=== PATIENT | female | born 1945 | race Caucasian/White ===

== ENCOUNTER → 2018-08-07 | Outpatient (CLI) | payer MEDICARE, OTHER, SELFPAY ==
--- NOTE | 2018-08-07 09:50 | VDLE_ITS ---
Reason For Study: LLE swelling Procedure LEFT Exam performed in department. GSV is normal. The study was technically difficult. CFV is compressible, spontaneous, phasic, Due to body habitus. competent, and demonstrates normal A preliminary report was called and/or faxed augmentation. to Dr. Mireles @ 10:20 am. FV is compressible, spontaneous, phasic, competent and demonstrates normal augmentation. POP V is compressible, spontaneous, phasic, competent and demonstrates normal augmentation. T/P Trunk is compressible. PTV is compressible. LT PerV is compressible. Interpretation Summary Deep veins of the left lower extremity are patent and compressible segmentally. There is no evidence of left lower extremity deep vein thrombosis. Valvular competence appears intact within the proximal deep venous system on the left . The left greater saphenous vein appears patent and compressible segmentally. Ordering Physician: Sandrine Mireles Referring Physician: Sandrine Mireles Performed By: Meghan Rodrigues, RDMATILDE, RVT
== END | disposition home or self-care (01) ==
LOC: CVS 09:46
PROVIDERS: Family Provider Internal Medicine; PCP Internal Medicine; Referring Provider Internal Medicine; Visit Provider Internal Medicine
DX: M79.89 Other specified soft tissue disorders (principal)
CPT/HCPCS: 93971

== ENCOUNTER 2020-02-25 16:35 | Emergency (ER) | payer MEDICARE, OTHER, SELFPAY ==
[2020-02-25] VITALS (8 sets, daily range): BP systolic 135–167; BP diastolic 65–89; PULSE 80–97; RESP 16–24; TEMP 36.2; O2SAT 76–99; BMI 48.7
--- NOTE | 2020-02-25 16:56 | EKG12_ITS ---
Test Reason : LOW O2 Blood Pressure : / mmHG Vent. Rate : 090 BPM Atrial Rate : 090 BPM P-R Int : 216 ms QRS Dur : 086 ms QT Int : 354 ms P-R-T Axes : 058 -09 034 degrees QTc Int : 433 ms Sinus rhythm with 1st degree A-V block Inferior infarct , age undetermined Abnormal ECG Confirmed by INDER GARRETT, KENNEDY ([id number]), technical writer and editor FELICIA FERRO ([id number]) on 02/28/2020 9:42:50 AM Referred By: ERIN Confirmed By:KENNEDY LOVING MD
[2020-02-25 17:08] LABS: Absolute Lymphocyte Count 0.65 X10^3/uL (0.83-4.51); Absolute Neutrophil Count 7.5 X10^3/uL (2.0-7.7); Basophil# 0.06 X10^3/uL; Basophil% 0.7 % (0-1); Eosinophil# 0.14 X10^3/uL; Eosinophils% 1.5 % (0-5); Hematocrit 52.5 % (37-47); Hemoglobin 15.4 g/dL (12.0-15.0); Lymphocyte # 0.65 X10^3/ul (4.0); Lymphocyte % 7.1 % (19-41); Mean Corp Hgb Conc 29.3 g/dL (32-36); Mean Corpuscular Hgb 28.9 pg (27.0-32.0); Mean Corpuscular Volume 98.7 fL (81-99); Mean Platelet Vol. 12.1 fl (6.2-12.0); Monocyte# 0.82 X10^3/uL; Monocyte% 8.9 % (0-10); NRBC Flagged by Analyzer 0 % (0-5); Neutrophil # 7.45 X10^3/uL (2.7-7.7); Platelet Count 150 K/mm3 (150-450); RBC Distribution Width CV 14.6 % (11.6-14.6); RBC Distribution Width SD 52.6 fl (35.1-43.9); Red Blood Count 5.32 M/mm3 (4.2-5.4); White Blood Count 9.2 K/mm3 (4.4-11.0)
--- NOTE | 2020-02-25 17:15 | RAD_ITS ---
STUDY: X-RAY CHEST REASON FOR EXAM: Female, 74 years old[address] SENT BY DR. FERNANDEZ FOR LOW O2 SATS. PT REPORTS SOB AND CONGESTION. TECHNIQUE: Single AP portable view of the chest. COMPARISON: 02/08/2016 FINDINGS: Poor inspiration with some bibasilar atelectasis. Small right pleural effusion. Normal size heart. Normal mediastinum and raghav. Normal visualized pulmonary arteries. Normal visualized aortic arch and descending thoracic aorta. Spinal rods. Normal visualized ribs, clavicles, and shoulders. There is no demonstrated abnormality of the visualized soft tissue structures of the upper abdomen. RAD/Chest 1 View (Portable) IMPRESSION: Poor inspiration with some bibasilar atelectasis and a small right pleural effusion. Electronically Signed: Kermit Bejarano MD at 17:36 EST Tel , Service support ,
[2020-02-25 17:26] LABS: ALB/GLOB Ratio 0.9 RATIO (0.9-2.4); AST(SGOT) 12 U/L (15-37); Alanine Aminotransfer ALT/SGPT 26 U/L (13-56); Albumin, Serum 3.4 g/dL (3.2-5.0); Alkaline Phosphatase 87 U/L (45-117); Anion Gap 2 (5-15); BUN 17 mg/dL (7-18); BUN/Creat Ratio 13.1 RATIO (10-20); Chloride 109 mmol/L (98-107); EST Glomerular Filtration Rate 43 mL/min (>60); Est Glom Filt Rate - Afr Amer 52 mL/min (>60); Estimated Creatinine Clearance 37.48 ml/min; Globulin 3.7 g/dL (2.2-4.2); Glucose 92 mg/dL (74-106); Potassium 4.4 mmol/L (3.5-5.1); Protein, Total 7.1 g/dL (6.4-8.2); Sodium Level 145 mmol/L (136-145)
[2020-02-25 17:35] LABS: BNP,B-Type NATRIURETIC PEPTIDE 257.3 pg/mL (0-100)
[2020-02-25 17:38] LABS: Lactic Acid 1.1 mmol/L (0.4-1.9)
--- NOTE | 2020-02-25 18:35 | ED.VISSUMM ---
- ER Visit Summary Date of Service: 02/25/20 Chief Complaint: Shortness of breath History of Present Illness: The patient is a [address] Mireles. She is a poor informant. She reports that she has chronic shortness of breath that has increased over the course of the past week. She states that it is severe with exertion. She denies any fever, chills, or chest pain. Reports he has a cough from sinus drainage is productive of clear sputum. Patient denies sick contacts. She does wear a mask. She is not on home O2. She is not on anticoagulants. Physical Examination: Vitals: 97.2, 167/81, 97, 24, 84% on room air which is hypoxic. General: Well-nourished and well-developed. Head: Normocephalic atraumatic. Neck: Supple, no lymphadenopathy. No JVD. Nontender. Cardiovascular: Regular rate and rhythm. No murmurs. Heart sounds are distant. Respiratory: No respiratory distress. Poor air movement. Lungs are clear to auscultation bilaterally, but breath sounds are distant. Abdominal: Soft, nontender, nondistended, normal bowel sounds. No guarding, rebound, or peritoneal signs. Back: Nontender. Extremities: Nontender, 1+ edema lower extremities bilaterally. Skin: Normal color, no rash. Neurologic: Alert and oriented ?3. Cranial nerves II through XII are intact. Normal strength and sensation. Psych: Normal affect. Test Results: EKG is sinus at 90 with first-degree AV block. Nonspecific ST changes. CBC shows an H&H of 15.4 and 52.5, second neutrophils 81, lymphocytes of 7. Chem-7 shows a chloride of 109, CO2 34, creatinine 1.3. LFTs show an AST of 12. Troponin is negative. BNP is 257.3. D-dimer is 0.8. COVID-19 is negative. Clinical Impression(s) from Imaging Studies Chest X-Ray 02/25/20 17:15 IMPRESSION: Poor inspiration with some bibasilar atelectasis and a small right pleural effusion. Electronically Signed: Kermit Bejarano MD at 17:36 EST Tel , Service support , Chest CTA 02/25/20 18:40 IMPRESSION: Significantly limited by patient size. No gross PE. Underexpansion of the lungs. Small right pleural effusion and atelectasis in the right lower lobe. 3 cm mass of the left thyroid lobe. Electronically Signed: Ezra Wall MD at 19:26 EST , Service support , Emergency Department Course and Treatment: Patient's pulse ox was 84% on room air at rest. On 4 L nasal cannula she is in the mid 90s. Treatment Plan: The patient was discussed with Dr. Valencia who asked that we attempt to get oxygen from the emergency department because there is really nothing that would be do done treatment le in the hospital. Patient was ambulated and her pulse ox was 76% on room air with ambulation. We have spoken with Andrey and the patient will be discharged with home oxygen. Instructed to follow-up with her primary care physician in 3 to 5 days. Return to the emergency department for any worsening symptoms.. Disposition: Discharged in improved condition. Impression: 1. Right pleural effusion. 2. Hypoxia. This note was generated with [employer] dictation software. It may contain incorrect words, spelling, and punctuation that were not noted in review of the chart prior to signing ED Disposition - Plan for ED Patient: Instructions: ED Pleural Effusion Referrals: Sandrine Mireles MD [Primary Care Provider] - As soon as possible
--- NOTE | 2020-02-25 18:40 | CT_ITS ---
STUDY: CTA CHEST REASON FOR EXAM: Female, 74 years old. Hypoxia, congestion, shortness of breath RADIATION DOSAGE (If Supplied By Facility): CTDIvol = ( 16.7 ) mGy, DLP = ( 731.45 ) mGycm TECHNIQUE: The examination was performed with the intravenous administration of Isovue 370 100ml. Post-processing of the angiographic images was performed, with multiplanar reformation and 3D reconstruction. Individualized dose optimization techniques were used for this CT. COMPARISON: None. FINDINGS: Exam limited by patient size which decreases resolution and causes artifact. There is also streak artifact from patient''s arms and ROSS rods. 3 cm nodule in the left thyroid lobe, ultrasound recommended. Normal enhancement of the main pulmonary artery and right and left pulmonary arteries. Normal enhancement of the bilateral peripheral pulmonary arteries. There is no demonstrated pulmonary embolism. Normal thoracic aorta and visualized great vessels. There is no demonstrated aortic dissection. Mild/moderate cardiomegaly. Normal mediastinum. Normal hilar regions. Normal visualized trachea and bronchi. The lungs are under expanded. Small right pleural effusion. Atelectasis in the right lower lobe. No definite infiltrates. Stable degenerative and postoperative changes of the thoracic spine. No gross acute amount is seen in the upper abdomen. CT/CTA Chest W/WO Contrast IMPRESSION: Significantly limited by patient size. No gross PE. Underexpansion of the lungs. Small right pleural effusion and atelectasis in the right lower lobe. 3 cm mass of the left thyroid lobe. Electronically Signed: Ezra Wall MD at 19:26 EST , Service support ,
--- NOTE | 2020-02-25 21:48 | ED.RN ---
AMBULATED WITH WALKER AND PULSE OX, OXYGEN LEVEL DROPPED TO 87% ON 3L. PT RECOVERED TO 96% ON 3L AT REST.
--- NOTE | 2020-02-25 22:21 | CM.ED ---
Addendum entered by Yamilet Pepe 02/25/20 23:10: Call to [employer] armor reconnaissance vehicle driverKapil to update patient to be leaving shortly and provided with address and contact number for daughter. Wrapper Cashier to patient patient at the home to set up O2. Original Note: SOCIAL WORK Informant: Dr. Crooks Reason for Consult: Discharge Planning Updated by Dr. Crooks, case was discussed with Dr. Valencia and she is requesting home O2 be set up in ED for home going. Patient with COVID-[address] Valencia has contacted [facility] to discuss home O2 without positive COVID-19 test result. This worker spoke with on-call workers through [employer], Michael and Kapil to see about possibility of obtaining home O2 set up this evening. Both workers state if any issues will follow up with patient and PCP on Friday. Wrapper Cashier requesting this worker provide patient with portable tank and will meet patient at home upon discharge. Nursing has completed O2 testing and Dr. Crooks completed [employer]. This worker spoke with patient's daughterNeema whom patient resides with as patient is a poor historian. Neema in agreement with home O2 set up through [employer]. All clinical information faxed to [employer] at this time. Portable tank and tubing provided to nursing and will review with patient. This worker to call armor reconnaissance vehicle driverKapil upon discharge. Plan: Home with home O2 through [employer]. KEVON Lara, BUCK SWAMPER
== END 2020-02-25 23:55 | disposition home or self-care (01) ==
LOC: ED 17:55
PROVIDERS: Emergency Provider Emergency Medicine; PCP Internal Medicine
DX: J90 Pleural effusion, not elsewhere classified (principal); R09.02 Hypoxemia; I10 Essential (primary) hypertension; E78.00 Pure hypercholesterolemia, unspecified; Z79.899 Other long term (current) drug therapy
CPT/HCPCS: 36415; 71045; 71275; 80053; 83605; 83880; 84484; 85025; 85379; 87040; 87426; 93005; 99284; Q9967; A4216

== ENCOUNTER → 2020-03-02 10:35 | Outpatient (CLI) | payer MEDICARE, OTHER, SELFPAY ==
[2020-02-25 16:37] VITALS: BMI 48.7
--- NOTE | 2020-03-02 10:41 | ECHOCS_ITS ---
Version 2 Reason For Study: aortic stenosis Procedure This was a 2D Doppler, Color Flow transthoracic echocardiogram. The study was technically difficult. Due to body habitus. Contrast injection was performed. Exam performed in department. Left Ventricle Normal LV size. The estimated ejection fraction is 65 %. Diastolic function is indeterminate. No regional wall motion abnormalities noted. Right Ventricle Normal RV size. Normal systolic function. Atria Normal left atrium. Normal right atrium. No doppler evidence for ASD. Mitral Valve There is no mitral valve stenosis. No mitral valve insufficiency. Tricuspid Valve There is no tricuspid stenosis. Unable to estimate RV systolic pressure due to inadequate jet, pulmonary artery pressure probably normal. Unable to estimate RV systolic pressure due to insufficient tricuspid regurgitant envelope. Aortic Valve Mild diffuse aortic valve thickening. The aortic valve is not well visualized. possible mild by doppler criteria. No aortic valve insufficiency. Pulmonic Valve There is no pulmonic valvular stenosis. No pulmonic valve insufficiency. Great Vessels Normal aortic root. Pericardium/Pleural Trivial pericardial effusion. Medication 22 gauge I.V. with prn adaptor inserted into right arm. Diluted definity 4.0ml given slow IV push to enhance endocardial definition. MMode/2D Measurements & Calculations LVIDd: 4.2 cm IVSd: 1.3 cm LVOT diam: 2.0 cm LVIDs: 3.0 cm LVPWd: 1.3 cm RVDd: 4.0 cm FS: 28.7 % LVOT area: 3.3 cm2 Ao root diam: 3.1 cm LAV(MOD-bp): 47.6 ml LA A4 area: 17.4 cm2 LAV(MOD-bp) Indexed: 20.6 ml/m2 LAV(MOD-sp2): 49.5 ml LAV(MOD-sp4): 44.0 ml LA dimension(2D): 4.7 cm RA A4 area: 15.2 cm2 Doppler Measurements & Calculations MV E max matty: 113.2 cm/sec Lat Peak E' Matty: 6.8 cm/sec Med Peak E' Matty: 6.3 cm/sec MV A max matty: 142.5 cm/sec E/E' lat: 16.5 E/E' med: 17.9 MV E/A: 0.79 Ao V2 max: 241.9 cm/sec LV V1 max: 133.0 cm/sec SV(LVOT): 86.9 ml Ao max P.4 mmHg LV V1 max P.1 mmHg Ao V2 mean: 163.1 cm/sec LV V1 mean P.2 mmHg Ao mean P.9 mmHg LV V1 mean: 99.0 cm/sec Ao V2 VTI: 41.8 cm LV V1 VTI: 26.4 cm BENNY(I,D): 2.1 cm2 BENNY(V,D): 1.8 cm2 PA V2 max: 107.7 cm/sec Interpretation Summary The study was technically difficult. Contrast injection was performed. The estimated ejection fraction is 65 %. Diastolic function is indeterminate. Mild diffuse aortic valve thickening. possible mild by doppler criteria The study was technically difficult. Contrast injection was performed. Ordering Physician: Sandrine Mireles Referring Physician: Sandrine Mireles Performed By: Meghan Rodrigues, AYSE, RVT
--- NOTE | 2020-03-02 11:28 | US_ITS ---
STUDY: THYROID ULTRASOUND REASON FOR EXAM: Female, 74 years old. NODULE SEEN ON CT TECHNIQUE: Ultrasound evaluation of the thyroid was performed with real-time and static chauhan-scale imaging. COMPARISON: CT scan 02/25/2020. FINDINGS: RIGHT LOBE: The right lobe of the thyroid gland measures 4.4 x 2.1 x 1.8 cm. There is a heterogeneous echotexture. 2 nodules are seen. One is complex, solid and cystic and measures 1.7 cm in greatest dimension. The other is probably a tiny colloid cyst measuring 5 mm. LEFT LOBE: The left lobe of the thyroid gland measures 4.2 x 2.6 x 2.8 cm. There is a heterogeneous echotexture. There is a heterogeneous mass in the lower pole measuring 3.1 cm in greatest dimension. ISTHMUS: The isthmus measures 4 mm . The regional lymph nodes are normal. US/Thyroid IMPRESSION: Heterogeneous thyroid gland. 3.1 cm mass in the left thyroid lobe. Consider ultrasound-guided biopsy. Electronically Signed: Ezra Wall MD at 23:21 EST , Service support ,
== END ==
PROVIDERS: PCP Internal Medicine; Referring Provider Internal Medicine; Visit Provider Internal Medicine
DX: E07.9 Disorder of thyroid, unspecified (principal); I35.0 Nonrheumatic aortic (valve) stenosis
CPT/HCPCS: 76536; 93306; Q9957; A4216; C8929

== ENCOUNTER → 2020-03-29 | Outpatient (CLI) | payer MEDICARE, OTHER, SELFPAY ==
--- NOTE | 2020-03-29 14:00 | ASPS_PTH ---
PATIENT: CLAIRE PIRES LOC: [facility] U#:[id number] AGE/SX: 74/F ROOM: RE03/29/[address]: Dr. Hari Plaza MD : 1945 BED: DIS: 03/29/2020 SPEC #: [id number] RECD: 03/29/20 15:35 STATUS: MYKEL SHAYE #: [id number] RHIANNON: 03/29/20 14:[address]: Hari Plaza DEPT: CYTOLOGY RECD BY: Bessy Osullivan ENTERED: 03/30/20 07:56 SP TYPE: ASPIRATION OTHR DR: Dr. Sandrine Mireles MD Tissues: Thyroid gland, NOS Procedures: Special Stain Group II Cytology Other HEADER OPERATION: Left thyroid fine needle aspiration PRE-OP DIAGNOSIS: Left thyroid nodule TISSUE SUBMITTED: Left thyroid slides x8 DIAGNOSIS CYTOLOGY Left thyroid nodule, FNA (smears): Consistent with benign follicular nodule. Adequate for evaluation. See comment. SJ:juliette 03/30/2020 COMMENT Correlation with clinical, radiologic findings and appropriate follow up are necessary. CYTOLOGY STUDY Slides are reviewed. CYTOLOGY GROSS Received are eight smears labeled with the patient's name and designated per the requisition as left thyroid. Submitted for staining. / juliette 03/29/20 TC:5 CPT: 10862
== END | disposition home or self-care (01) ==
LOC: LABSPEC 15:45
PROVIDERS: PCP Internal Medicine; Referring Provider Surgery; Visit Provider Surgery
DX: E04.1 Nontoxic single thyroid nodule (principal)
CPT/HCPCS: 88161; 88313

== ENCOUNTER → 2020-10-30 11:03 | Outpatient (CLI) | payer MEDICARE, OTHER, SELFPAY ==
[2020-10-30 12:06] LABS: Base Excess 9 mmol/L (-2 to +2); Bicarbonate 34.1 mmol/L (22-26); Blood Gas Specimen Type ART; O2 Delivery Device Room Air; PO2 72 mmHG (75-100); SITE R Brach; SO2 93 % (95-99); Total Carbon Dioxide 36 mmol/L; pCO2 59.4 mmHg (35-45); pH 7.37 (7.35-7.45)
== END ==
PROVIDERS: PCP Internal Medicine; Referring Provider Internal Medicine Pulmonary Disease; Visit Provider Internal Medicine Pulmonary Disease
DX: R09.02 Hypoxemia (principal)
CPT/HCPCS: 36600; 82803

== ENCOUNTER → 2020-11-23 08:49 | Outpatient (CLI) | payer MEDICARE, OTHER, SELFPAY ==
--- NOTE | 2020-11-23 08:54 | RAD_ITS ---
PROCEDURE: Sniff test. DATE OF EXAMINATION: 11/23/2020 INDICATION: Female, 74 years old presenting with dyspnea. PHYSICIAN: Tera Coelho MD FLUOROSCOPY TIME (if supplied): (0:14) minutes/seconds TECHNIQUE: Fluoroscopic evaluation of the diaphragm was performed, unremarkable movement of bilateral hemidiaphragms was normal respiration, unremarkable movement of bilateral hemidiaphragms with deep inspiration and expiration. Unremarkable synchronous motion of bilateral hemidiaphragms visualized during repeated episodes of sniffing. No evidence of paradoxical motion of the hemidiaphragms. RAD/Chest Sniff Test Fluoro Only IMPRESSION: Unremarkable sniff test. Electronically Signed: Christophe Coelho MD at 10:26 EDT Tel , Service support ,
== END ==
PROVIDERS: PCP Internal Medicine; Referring Provider Internal Medicine Pulmonary Disease; Visit Provider Internal Medicine Pulmonary Disease
DX: R06.00 Dyspnea, unspecified (principal)
CPT/HCPCS: 76000

== ENCOUNTER 2021-01-16 14:35 | Outpatient (CLI) | payer MEDICARE, OTHER, SELFPAY ==
[2021-01-16 15:08] VITALS: BP 138/62; PULSE 79; RESP 16; TEMP 36.4; O2SAT 100; BMI 47.0
[2021-01-16] MEDS: 0.9% Saline Lock 10 ML Syringe IV (15:08)
[2021-01-16 15:40] VITALS: BP 144/67; PULSE 80; RESP 16; TEMP 37.1; O2SAT 100
[2021-01-16 16:40] VITALS: BP 149/58; PULSE 83; RESP 16; TEMP 36.9; O2SAT 98
== END 2021-01-16 16:50 | disposition home or self-care (01) ==
LOC: MS3OUT 14:37 → MS3 15:07
PROVIDERS: PCP Internal Medicine; Referring Provider Nurse Practitioner Adult Health; Visit Provider Nurse Practitioner Adult Health
DX: Z23 Encounter for immunization (principal); U07.1 COVID-19
CPT/HCPCS: J7050; M0245; Q0245; A4216

== ENCOUNTER 2021-03-20 12:52 | Outpatient (CLI) | payer MEDICARE, OTHER, SELFPAY ==
--- NOTE | 2021-03-20 13:01 | US_ITS ---
STUDY: THYROID ULTRASOUND REASON FOR EXAM: Female, 75 years old. Multiple thyroid nodules TECHNIQUE: Ultrasound evaluation of the thyroid was performed with real-time and static chauhan-scale imaging. COMPARISON: Comparison is made with prior study dated 08/30/2020. FINDINGS: RIGHT LOBE: The right lobe of the thyroid gland measures 4.3 cm x 2.2 cm x 2.2 cm. There is a heterogeneous echotexture. A mixed solid and cystic nodule in the lower pole is visualized. This measures 1.5 cm x 1.4 NORBERTO by 1.5 cm. This is essentially unchanged. There is a 8mm by 6 mm x 5 mm solid hypoechoic nodule in the midpole of the lobe as well as a 4 mm x 5 mm x 4 mm hypoechoic solid nodule in the upper pole. LEFT LOBE: The left lobe of the thyroid gland measures 4.5 cm x 2.9 cm x 2.9 cm. There is a heterogeneous echotexture. There is a 3.5 cm x 2.5 cm x 2.6 cm heterogeneous solid nodule in the midpole. This has increased in size as compared to prior study. Biopsy recommended. ISTHMUS: The isthmus measures 5 mm. The regional lymph nodes are normal. US/Thyroid IMPRESSION: 3.5 cm x 2.5 cm x 2.6 heterogeneous solid nodule in the mid pole of the left lobe. Biopsy recommended. The remainder of the examination is unchanged. Electronically Signed: Sunil Corrigan MD at 15:38 EST ,
== END 2021-03-20 23:59 | disposition home or self-care (01) ==
PROVIDERS: PCP Internal Medicine; Referring Provider Surgery; Visit Provider Surgery
DX: E04.2 Nontoxic multinodular goiter (principal)
CPT/HCPCS: 76536

== ENCOUNTER → 2021-06-19 | Outpatient (CLI) | payer MEDICARE, OTHER, SELFPAY | END | disposition home or self-care (01) | LOC: SL 20:38 | PROVIDERS: PCP Internal Medicine; Visit Provider Internal Medicine Pulmonary Disease | DX: G47.10 Hypersomnia, unspecified (principal) | CPT/HCPCS: 95810 ==

== ENCOUNTER → 2021-10-02 | Outpatient (CLI) | payer MEDICARE, OTHER, SELFPAY | END | disposition home or self-care (01) | LOC: SL 20:37 | PROVIDERS: PCP Internal Medicine; Referring Provider Internal Medicine Pulmonary Disease; Visit Provider Internal Medicine Pulmonary Disease | DX: G47.33 Obstructive sleep apnea (adult) (pediatric) (principal) | CPT/HCPCS: 95811 ==

== ENCOUNTER → 2022-06-25 | Outpatient (CLI) | payer MEDICARE, OTHER, SELFPAY ==
[2022-06-25 16:10] LABS: Anion Gap 3 (5-15); BUN 24 mg/dL (7-18); BUN/Creat Ratio 21.8 RATIO (10-20); Calcium,Total 9.8 mg/dL (8.5-10.1); Chloride 110 mmol/L (98-107); EST Glomerular Filtration Rate 51 mL/min (>60); Est Glom Filt Rate - Afr Amer 62 mL/min (>60); Glucose 101 mg/dL (74-106); Potassium 4.8 mmol/L (3.5-5.1); Sodium Level 143 mmol/L (136-145)
== END | disposition home or self-care (01) ==
LOC: LAB 15:11
PROVIDERS: PCP Internal Medicine; Referring Provider Internal Medicine; Visit Provider Internal Medicine
DX: N28.9 Disorder of kidney and ureter, unspecified (principal)
CPT/HCPCS: 36415; 80048

== ENCOUNTER → 2022-07-22 | Outpatient (CLI) | payer MEDICARE, OTHER, SELFPAY ==
--- NOTE | 2022-07-22 13:44 | VDLE_ITS ---
Reason For Study: Left leg swelling Procedure LEFT This is a venous duplex using B-mode, color GSV is normal. flow and spectral Doppler. CFV is compressible, spontaneous, phasic, Exam performed in department. competent, and demonstrates normal The study was technically difficult. augmentation. A preliminary report was called and/or faxed FV is compressible, spontaneous, phasic, to Dr. Soto. competent and demonstrates normal augmentation. POP V is compressible, spontaneous, phasic, competent and demonstrates normal augmentation. T/P Trunk is compressible. PTV is compressible. LT PerV is compressible. VL/Venous Duplex US, Unilateral Interpretation Summary There is no evidence of left lower extremity deep vein thrombosis. Left great s aphenous vein appears patent and compressible segmentally. Soft tissue edema noted left lower extremi ty. The examination was noted to be technically difficult Ordering Physician: Cristy Soto Referring Physician: Sandrine Mireles M.D. Performed By: Lo Meng RVT
== END | disposition home or self-care (01) ==
LOC: CVS 13:43
PROVIDERS: PCP Internal Medicine; Referring Provider Internal Medicine; Visit Provider Internal Medicine
DX: M79.89 Other specified soft tissue disorders (principal)
CPT/HCPCS: 93971

== ENCOUNTER → 2022-08-29 | Outpatient (CLI) | payer MEDICARE, OTHER, SELFPAY ==
[2022-08-29 11:12] LABS: Absolute Lymphocyte Count 1.03 X10^3/uL (0.83-4.51); Basophil# 0.06 X10^3/uL; Basophil% 0.9 % (0-1); Eosinophil# 0.34 X10^3/uL; Eosinophils% 5.4 % (0-5); Hematocrit 39.8 % (37-47); Hemoglobin 12.1 g/dL (12.0-15.0); Lymphocyte # 1.03 X10^3/ul (0.83-4.51); Lymphocyte % 16.3 % (19-41); Mean Corp Hgb Conc 30.4 g/dL (32-36); Mean Corpuscular Hgb 29.3 pg (27.0-32.0); Mean Corpuscular Volume 96.4 fL (81-99); Mean Platelet Vol. 11.6 fl (6.2-12.0); Monocyte# 0.85 X10^3/uL; Monocyte% 13.4 % (0-10); NRBC Flagged by Analyzer 0 % (0-5); Neutrophil % 63.4 % (47-70); Platelet Count 163 K/mm3 (150-450); RBC Distribution Width CV 13.1 % (11.6-14.6); RBC Distribution Width SD 46.5 fl (35.1-43.9); Red Blood Count 4.13 M/mm3 (4.2-5.4); White Blood Count 6.3 K/mm3 (4.4-11.0)
[2022-08-29 11:39] LABS: ALB/GLOB Ratio 0.8 RATIO (0.9-2.4); AST(SGOT) 11 U/L (15-37); Alanine Aminotransfer ALT/SGPT 17 U/L (13-56); Alkaline Phosphatase 79 U/L (45-117); Anion Gap 6 (5-15); BUN 25 mg/dL (7-18); BUN/Creat Ratio 18.5 RATIO (10-20); Calcium,Total 9.6 mg/dL (8.5-10.1); Chloride 110 mmol/L (98-107); Creatinine, Serum 1.35 mg/dL (0.55-1.02); EST Glomerular Filtration Rate 41 mL/min (>60); Est Glom Filt Rate - Afr Amer 49 mL/min (>60); Globulin 3.8 g/dL (2.2-4.2); Glucose 85 mg/dL (74-106); Potassium 4.8 mmol/L (3.5-5.1); Protein, Total 6.8 g/dL (6.4-8.2); Sodium Level 144 mmol/L (136-145)
== END | disposition home or self-care (01) ==
LOC: LAB 10:38
PROVIDERS: PCP Internal Medicine; Referring Provider Internal Medicine; Visit Provider Internal Medicine
DX: E11.9 Type 2 diabetes mellitus without complications (principal); M79.89 Other specified soft tissue disorders
CPT/HCPCS: 36415; 80053; 85025

== ENCOUNTER → 2022-09-10 | Outpatient (CLI) | payer MEDICARE, OTHER, SELFPAY ==
--- NOTE | 2022-09-10 14:25 | US_ITS ---
INDICATION: thyroid mass EXAMINATION: Ultrasound US Thyroid (eg thyroid, parathyroid, parotid) TECHNIQUE: Henry scale and color doppler imaging was performed of the thyroid gland. COMPARISON: Prior comparison exam dated March 20, 2021. FINDINGS: Difficult exam due to patient size and positioning. RIGHT THYROID LOBE: 4.1 x 1.9 x 2.3 cm. Homogeneous echotexture with normal vascularity. [ Right lower lobe 1.1 x 1.1 x 1.3 cm solid, heterogeneously hypoechoic nodule, wider than tall with ill-defined margins and no echogenic foci; Ti RADS category 4 moderately suspicious nodule. Given size greater than 1 cm, follow-up imaging is recommended in one year. LEFT THYROID LOBE: 5.4 x 3.2 x 3.5 cm. Homogeneous echotexture with normal vascularity. [ Left thyroid lobe is enlarged by a 3.1 x 2.2 x 2.0 cm, solid, isoechoic, color than wide nodule with smooth margins and no echogenic foci; moderately suspicious nodule. Given size greater than 1.5 cm, FNA is recommended. ISTHMUS: 4 mm. No thyroid nodules are present. US/Thyroid IMPRESSION: FNA recommended for left thyroid lobe nodule based on [employer] Ti RADS guidelines; moderately suspicious nodule greater than 1.5 cm. Electronically Signed: Martinez Crane DO at 22:55 EDT ,
== END | disposition home or self-care (01) ==
LOC: US 14:24
PROVIDERS: PCP Internal Medicine; Referring Provider Internal Medicine; Visit Provider Internal Medicine
DX: R22.1 Localized swelling, mass and lump, neck (principal)
CPT/HCPCS: 76536

== ENCOUNTER → 2022-11-20 | Outpatient (CLI) | payer MEDICARE, OTHER, SELFPAY ==
[2022-11-20 14:58] LABS: Absolute Lymphocyte Count 0.99 X10^3/uL (0.83-4.51); Absolute Neutrophil Count 3.8 X10^3/uL (2.0-7.7); Basophil# 0.05 X10^3/uL; Basophil% 0.8 % (0-1); Eosinophil# 0.29 X10^3/uL; Eosinophils% 4.9 % (0-5); Hemoglobin 12.8 g/dL (12.0-15.0); Lymphocyte # 0.99 X10^3/ul (0.83-4.51); Lymphocyte % 16.7 % (19-41); Mean Corpuscular Hgb 30.3 pg (27.0-32.0); Mean Corpuscular Volume 94.8 fL (81-99); Mean Platelet Vol. 11.3 fl (6.2-12.0); Monocyte# 0.72 X10^3/uL; Monocyte% 12.2 % (0-10); NRBC Flagged by Analyzer 0 % (0-5); Neutrophil # 3.84 X10^3/uL (2.7-7.7); Neutrophil % 64.9 % (47-70); Platelet Count 161 K/mm3 (150-450); RBC Distribution Width CV 13.2 % (11.6-14.6); RBC Distribution Width SD 45.6 fl (35.1-43.9); Red Blood Count 4.22 M/mm3 (4.2-5.4); White Blood Count 5.9 K/mm3 (4.4-11.0)
[2022-11-20 15:10] LABS: Prothrombin Time (Protime)PT. 13.3 SECONDS (11.7-14.9)
[2022-11-20 15:11] LABS: Partial Thromboplast Time 32.6 Seconds (24.1-36.2)
[2022-11-20 15:43] LABS: Vitamin D,25 Hydroxy 72.1 ng/mL
[2022-11-20 15:58] LABS: ALB/GLOB Ratio 0.9 RATIO (0.9-2.4); AST(SGOT) 10 U/L (15-37); Alanine Aminotransfer ALT/SGPT 22 U/L (13-56); Albumin, Serum 3.2 g/dL (3.2-5.0); Alkaline Phosphatase 70 U/L (45-117); Anion Gap 2 (5-15); BUN 27 mg/dL (7-18); BUN/Creat Ratio 19.1 RATIO (10-20); Calcium,Total 9.6 mg/dL (8.5-10.1); Chloride 111 mmol/L (98-107); Creatinine, Serum 1.41 mg/dL (0.55-1.02); EST Glomerular Filtration Rate 39 mL/min (>60); Est Glom Filt Rate - Afr Amer 47 mL/min (>60); Globulin 3.6 g/dL (2.2-4.2); Glucose 89 mg/dL (74-106); Potassium 4.3 mmol/L (3.5-5.1); Protein, Total 6.8 g/dL (6.4-8.2); Sodium Level 143 mmol/L (136-145); Thyroid Stim Hormone (TSH) 3.88 uIU/mL (0.358-3.74)
[2022-11-20 21:32] LABS: Hemoglobin A1c 5.7 % (3.8-5.6)
[2022-11-22 08:40] LABS: CRP 4.36 mg/L (0.0-3.0)
== END | disposition home or self-care (01) ==
PROVIDERS: PCP Internal Medicine; Referring Provider Internal Medicine; Visit Provider Internal Medicine
DX: E55.9 Vitamin D deficiency, unspecified (principal); E11.9 Type 2 diabetes mellitus without complications; I10 Essential (primary) hypertension; E07.9 Disorder of thyroid, unspecified; R58 Hemorrhage, not elsewhere classified; M79.89 Other specified soft tissue disorders
CPT/HCPCS: 36415; 80053; 82306; 83036; 84443; 85025; 85610; 85730; 86140

== ENCOUNTER 2023-02-17 18:09 | Inpatient (IN) | payer MEDICARE, OTHER, SELFPAY ==
[2023-02-17] VITALS (13 sets, daily range): BP systolic 73–170; BP diastolic 41–134; PULSE 62–82; RESP 15–28; TEMP 36.4–36.8; O2SAT 93–100; BMI 56.4; BMI 51.5
--- NOTE | 2023-02-17 18:31 | EX.ED.DYSGE1 ---
HPI History of Present Illness Chief Complaint: Weakness Informant: patient and family Narrative Narrative: Here with daughter increasing weakness today. Patient mostly uses wheelchair however can weight-bear ambulate with a walker at home. 2 days ago noted patient be more fatigued and talking her sleep, per daughter these are signs of UTI. She also reports some burning with urination. Yesterday was active more than normal getting up and out of the wheelchair. She has urine frequency due to being on Lasix and has not increased. No fevers. Today she is unable to get out of her chair herself daughter had trouble pushing her in the wheelchair therefore EMS was contacted. She deals with chronic edema in her abdomen and legs. She denies any cough. She is mentally intact and at baseline. Blood pressure noted to be low on arrival denies lightheaded symptoms typical blood pressures systolic 110s per daughter. She states she does take blood pressure medications denies taking extra medications. Prior similar symptoms: Yes PFSH PFSH Medical History Anemia Bilateral pulmonary embolism (07/2014) Chronic obstructive pulmonary disease with hypoxia Depression Essential hypertension Morbid obesity Multiple thyroid nodules Osteomyelitis of cervical spine Postoperative atrial fibrillation (06/2014) Type 2 diabetes mellitus Home Medications ergocalciferol (vitamin D2) 1,250 mcg (50,000 unit) capsule 50,000 unit PO MAZA SUPPLEMENT 02/25/20 [History Last Taken 02/20/20] fluoxetine 20 mg capsule 20 mg PO DAILY DEPRESSION 02/25/20 [History Last Taken 02/25/20] gabapentin 100 mg capsule 100 mg PO BID NERVE PAIN 02/25/20 [History Last Taken 02/25/20] potassium chloride 10 mEq tablet,extended release(part/cryst) 10 meq PO DAILY SUPPLEMENT 02/25/20 [History Last Taken 02/25/20] rosuvastatin 5 mg tablet (Crestor) 5 mg PO DAILY 01/16/21 [History Last Taken Unknown] vitamin B complex and vitamin C no.20-folic acid 1 mg capsule (Triphrocaps) 1 cap PO DAILY 01/16/21 [History Last Taken Unknown] lorazepam 0.5 mg tablet (Ativan) 0.5 mg PO TID PRN anxiety 03/12/21 [History Last Taken Unknown] pantoprazole 40 mg tablet,delayed release 40 mg PO DAILY 03/12/21 [History Last Taken Unknown] fluticasone furoate 100 mcg/actuation blister powder for inhalation (Arnuity Ellipta) 1 inh inhalation BID 02/17/23 [History Last Taken Unknown] metoprolol tartrate 25 mg tablet 25 mg PO TID 02/17/23 [History Last Taken Unknown] Allergy/AdvReac Type Severity Reaction Status Date / Time Food Allergies: Uncoded Allergy Swelling Verified 01/28/22 09:49 ibuprofen Allergy Shortness Verified 03/26/21 12:41 of breath oxycodone HCl [From Percocet] Allergy dizziness Verified 03/26/21 12:41 procaine [From Novocain] Allergy Other Verified 03/26/21 12:41 ciprofloxacin HCl AdvReac Other Verified 03/26/21 12:41 [From Cipro] Family History Father Diabetes Surgical History History of History of cholecystectomy History of spinal fusion Social History Smoking Status: Never smoker alcohol intake: never ROS ROS ED Constitutional Constitutional ED: Denies chills, fever(s) or sweats Eyes Eyes: Denies change in vision ENT ENT ED: Denies dysphagia or sore throat Cardiovascular Cardiovascular: Denies chest pain, leg edema, palpitations or racing heartbeat Respiratory/Chest Respiratory/Chest: Denies cough, dyspnea or dyspnea on exertion Gastrointestinal Gastrointestinal: Denies abdominal pain, diarrhea, nausea or vomiting Genitourinary Genitourinary ED: Reports dysuria and urinary frequency; Denies hematuria Musculoskeletal Musculoskeletal: Denies back pain, extremity pain or neck pain Integumentary Denies rash or wounds Neurologic Neurologic: Reports weakness; Denies headache(s) or paresthesias EXAM Physical Exam Const Vital Signs: 02/17/23 18:09 02/17/23 18:15 02/17/23 18:08 Temperature 97.5 F L 97.5 F L 97.5 F L Temperature Source Oral Oral Oral Pulse Rate 64 69 64 Respiratory Rate 15 24 H 18 Respiratory Effort Respiratory Pattern Blood Pressure 73/41 L 73/41 L Blood Pressure Mean 51 51 Pulse Ox 93 93 94 Oxygen Delivery Method Room Air Room Air Room Air Oxygen Flow Rate (L/min) 02/17/23 18:23 02/17/23 19:37 02/17/23 20:08 Temperature 98.3 F Temperature Source Temporal Pulse Rate 62 81 Respiratory Rate 28 H 22 H Respiratory Effort Normal Non-Labored Respiratory Pattern Normal Blood Pressure 108/65 120/51 L Blood Pressure Mean 79 74 Pulse Ox 98 99 Oxygen Delivery Method Nasal Cannula Nasal Cannula Oxygen Flow Rate (L/min) 2 2 02/17/23 20:45 02/17/23 21:07 Temperature Temperature Source Pulse Rate 82 79 Respiratory Rate 28 H 20 H Respiratory Effort Respiratory Pattern Blood Pressure 108/64 116/44 L Blood Pressure Mean 78 68 Pulse Ox 98 100 Oxygen Delivery Method Nasal Cannula Oxygen Flow Rate (L/min) 2 Positive well nourished and well developed Constitutional Narrative: BMI 56 General Appearance ED: well developed and NAD HEENT Reports moist mucous membranes normocephalic and atraumatic Eyes PERRL, EOMs intact bilaterally and conjunctivae normal General Eye ED: Yes normal appearance of both eyes Neck no lymphadenopathy and supple General: Negative for tenderness Chest Wall Chest: Negative for tenderness Resp normal respiratory effort and normal air movement Effort and Inspection: symmetric chest movement; Negative for respiratory distress Cardio regular rate, regular rhythm and no murmurs Peripheral Pulses: pulses 2+ throughout GI normal to inspection, nondistended, normoactive bowel sounds and non-tender GI Narrative: Large pannus, tenia noted more in left groin. Palpation: Negative for guarding or rebound tenderness present Back/Spine no CVA tenderness and no thoracic nor lumbar tenderness Extremity normal to inspection General Extremety ED: Negative for edema or tenderness General Extremity: Negative for edema Neuro oriented x3 and no sensory deficits noted Sensorium / Orientation: awake and alert Skin no rashes or lesions noted and no wounds Sepsis Attestation Sepsis Alert: Yes Sepsis Attestation: Agree w/Sepsis Date exam was performed: 02/17/23 Time exam was performed: 19:30 Possible Source of Sepsis: Genitourinary Sepsis Organ Dysfunction Criteria Present: SBP < 90 mmHg or MAP < 65 mmHg, Creatinine > 2.0 mg/dL and Lactic Acid > 2 mmol/L Fluid Resuscitation Fluid resuscitation indicated?: Yes Fluid Resuscitation ordered: Lesser volume fluid bolus ordered Amount of fluid ordered: 1,000 Reason for lesser fluid bolus:: Concern for fluid overload and BP Responded to a lesser volume Sepsis Note Date exam was performed: 02/17/23 Time exam was performed: 20:28 Sepsis Attestation: Sepsis re-evaluation was performed MDM MDM MDM Narrative Medical decision making narrative: Interventions / MDM: Differential diagnosis: UTI, electrolyte abnormalities, sepsis Diagnosis considered but do not suspect: N/A My EKG interpretation: Sinus rate of 66, no ST or T wave changes, first-degree AV block, QTc 488. Imaging independently reviewed and interpreted by myself: N/A External documents reviewed: N/A Test considered but not ordered:N/A ED course: Patient initial blood pressure 73/41 however denied lightheaded symptoms. She was started on a liter of fluids secondary to this. She is clinically alert and oriented x 3. History of UTIs similar presentation. Denied cough symptoms. Labs were ordered cath urine was ordered. Her white count returned at 22.6, had a respiratory rate over 20 therefore sepsis labs were added. Urine results positive for UTI culture sent. Additional ROSELYN creatinine 3.73 potassium 5.4 with no EKG changes. Blood pressure responded to fluids with 1 L. She continued on 150 cc of fluid. Her lactic acid returned at 3.5 meeting severe sepsis criteria. Further discussion with the daughter and patient she has been on Lasix for the past month and a half by PCP due to her leg edema which has improved. This likely part of the culprit for her ROSELYN. Patient fell asleep with her oxygen desatting nursing placed on oxygen, she does wear a BiPAP at night with oxygen. She has no cough or concerns of pneumonia. Patient responding to fluids appropriately therefore a total of 330 cc/kg bolus was not ordered in addition to avoiding fluid overload with her history. I discussed with hospitalist for admission to PCU. Re-evaluation: stable Disposition discussed with patient/family/significant other: Patient and daughter Case discussed with consulting clinician: Hospitalist This note was generated with QBE dictation software. It may contain incorrect words, spelling, and punctuation that were not noted in checking the note before signing. Lab Data Attestation: I reviewed the patient's lab results. Labs: Laboratory Results - last 24 hr 02/17/23 02/17/23 02/17/23 18:33 19:05 19:35 WBC 22.6 H RBC 4.67 Hgb 13.7 Hct 43.9 MCV 94.0 MCH 29.3 MCHC 31.2 L RDW Std Deviation 47.8 H RDW Coeff of Ruben 14.0 Plt Count 254 MPV 11.6 Immature Gran % (Auto) 1.300 H Neut % (Auto) 88.1 H Lymph % (Auto) 3.[address] [place] % (Auto) 7.2 Eos % (Auto) 0.0 Baso % (Auto) 0.4 Absolute Neuts (auto) 20.0 H Absolute Lymphs (auto) 0.67 L Nucleated RBC % 0 Differential Comment SCANNED Diff Path Review May foll PT INR APTT Sodium 139 Potassium 5.4 H Chloride 108 H Carbon Dioxide 20.0 L Anion Gap 11 BUN 60 H Creatinine 3.73 H Estim Creat Clear Calc 12.01 Est GFR (MDRD) Af Amer 15 L Est GFR (MDRD) Non-Af 13 L BUN/Creatinine Ratio 16.1 Glucose 135 H Lactic Acid 3.5 H* Calcium 10.4 H Total Bilirubin 1.90 H Direct Bilirubin 0.62 H AST 411 H ALT 152 H Alkaline Phosphatase 75 Total Protein 7.5 Albumin 3.3 Globulin 4.2 Urine Color Yellow Urine Clarity Cloudy Urine pH 5.0 Ur Specific [place] 1.025 Urine Protein 30 H Urine Glucose (UA) Normal Urine Ketones 5 H Urine Occult Blood 250 H Urine Nitrite Negative Urine Bilirubin 1 H Urine Urobilinogen 1 H Ur Leukocyte Esterase 500 H Urine RBC 0 SEEN Urine WBC >100 SEEN Ur Squamous Epith Cells 0-5 SEEN Urine Bacteria 3+ Urine Mucus 0 SEEN 02/17/23 20:10 WBC RBC Hgb Hct MCV MCH MCHC RDW Std Deviation RDW Coeff of Ruben Plt Count MPV Immature Gran % (Auto) Neut % (Auto) Lymph % (Auto) [place] % (Auto) Eos % (Auto) Baso % (Auto) Absolute Neuts (auto) Absolute Lymphs (auto) Nucleated RBC % Differential Comment Diff Path Review PT 15.3 H INR 1.2 APTT 33.3 Sodium Potassium Chloride Carbon Dioxide Anion Gap BUN Creatinine Estim Creat Clear Calc Est GFR (MDRD) Af Amer Est GFR (MDRD) Non-Af BUN/Creatinine Ratio Glucose Lactic Acid Calcium Total Bilirubin Direct Bilirubin AST ALT Alkaline Phosphatase Total Protein Albumin Globulin Urine Color Urine Clarity Urine pH Ur Specific [place] Urine Protein Urine Glucose (UA) Urine Ketones Urine Occult Blood Urine Nitrite Urine Bilirubin Urine Urobilinogen Ur Leukocyte Esterase Urine RBC Urine WBC Ur Squamous Epith Cells Urine Bacteria Urine Mucus Discharge Plan Dx/Rx/DC Orders Clinical Impression: Severe sepsis, Morbid obesity, Acute UTI, ROSELYN (acute kidney injury), Acute hyperkalemia, Apnea, sleep Disposition Disposition: Acute Care Hospital [facility] Discharge Date/Time: 02/17/23 21:43
[2023-02-17 18:57] LABS: Absolute Lymphocyte Count 0.67 X10^3/uL (0.83-4.51); Basophil# 0.08 X10^3/uL; Basophil% 0.4 % (0-1); Hematocrit 43.9 % (37-47); Hemoglobin 13.7 g/dL (12.0-15.0); Lymphocyte # 0.67 X10^3/ul (0.83-4.51); Mean Corp Hgb Conc 31.2 g/dL (32-36); Mean Corpuscular Hgb 29.3 pg (27.0-32.0); Mean Platelet Vol. 11.6 fl (6.2-12.0); Monocyte# 1.62 X10^3/uL; Monocyte% 7.2 % (0-10); NRBC Flagged by Analyzer 0 % (0-5); Neutrophil # 19.95 X10^3/uL (2.7-7.7); Neutrophil % 88.1 % (47-70); POSITIVE DIFFERENTIAL YES; Platelet Count 254 K/mm3 (150-450); RBC Distribution Width SD 47.8 fl (35.1-43.9); Red Blood Count 4.67 M/mm3 (4.2-5.4); White Blood Count 22.6 K/mm3 (4.4-11.0)
--- NOTE | 2023-02-17 19:00 | ED.RN ---
rn in previous shift had placed lincoln catheter.
[2023-02-17 19:03] LABS: Anion Gap 11 (5-15); BUN 60 mg/dL (7-18); BUN/Creat Ratio 16.1 RATIO (10-20); Calcium,Total 10.4 mg/dL (8.5-10.1); Chloride 108 mmol/L (98-107); Creatinine, Serum 3.73 mg/dL (0.55-1.02); EST Glomerular Filtration Rate 13 mL/min (>60); Est Glom Filt Rate - Afr Amer 15 mL/min (>60); Estimated Creatinine Clearance 12.01 ml/min; Glucose 135 mg/dL (74-106); Potassium 5.4 mmol/L (3.5-5.1); Sodium Level 139 mmol/L (136-145)
[2023-02-17 19:10] LABS: Mucous, Urine 0 SEEN /hpf (<or=2+); Red Blood Cells-Urine 0 SEEN /hpf (0-5)
[2023-02-17 19:11] LABS: Differential Indicated SCAN CRITERIA MET
[2023-02-17 19:14] LABS: Color, Urine Yellow (Yellow); Glucose, Dipstick Normal (Normal); Ketone-Dipstick 5 mg/dl (Negative); Leukocyte Esterase-Dipstick 500 /ul (Negative); Nitrite-Dipstick Negative (Negative); Occult Blood-Urine 250 /ul (Negative); Protein-Dipstick 30 mg/dl (Negative); Specific Gravity, Urine 1.025 (1.002-1.030); Urine Bilirubin Dipstick 1 mg/dL (Negative); Urine Clarity Cloudy (Clear); Urine Urobilinogen 1 mg/dl (Normal)
[2023-02-17] MEDS: 0.9% Normal Saline (1000mL) 1,000 ML 1000 ML IV (19:18)
[2023-02-17 19:27] LABS: Differential Comment SCANNED
[2023-02-17 19:32] LABS: Bacteria 3+ /hpf (None Seen); Squamous Epithelial Cells - UA 0-5 SEEN /hpf (5-10); White Blood Cells >100 SEEN /hpf (0-5)
--- NOTE | 2023-02-17 19:35 | ED.RN ---
pt noted to have a decrease in o2 sats to 78%. when this rn enters the room pt noted to be sleeping. pts dtr says pt has sleep apnea and sleeps with bipap and o2 bled in. dr Godfrey at bedside and aware.
[2023-02-17] MEDS: Ceftriaxone 1 GM/50 ML BAG IV (19:57)
[2023-02-17 20:11] LABS: Lactic Acid 3.5 mmol/L (0.4-1.9)
--- NOTE | 2023-02-17 20:19 | PCM.HP.STD ---
[facility] - General General Date of Admission: 02/17/23 Date of Service: 02/17/23 Chief Complaint: Generalized Weakness. [facility] Narrative CLAIRE BRADLEY, is a 77 F with a past medical history of essential hypertension, hyperlipidemia, diabetes mellitus type 2; of unknown control, morbid obesity; with BMI of 56.4 this admission, history of COPD, history of bilateral pulmonary emboli (2014), history of postoperative atrial fibrillation (2014), history of osteomyelitis of the cervical spine, history of multiple thyroid nodules, history of COVID-19 (2020), chronic anemia, history of cholecystectomy, chronic lower extremity swelling; with chronic venous stasis, GERD, depression with anxiety and osteoarthritis; with history of spinal fusion (T9-L4) with patient primarily using a wheelchair to mobilize but can occasionally use a walker who presents to [facility] ER complaining of generalized weakness. Ms. Bradley reports her symptoms began approximately 2 days prior to admission with her daughter noting that she was more fatigued and talking in her sleep which apparently have been signs of previous UTI. The patient also complained of dysuria specifically with burning with urination and she was unable to get out of her chair today so her daughter contacted EMS. She is also on Lasix presumably for chronic lower extremity edema with no noted increase in her urinary output. According to the ER records she was mentally intact and at her baseline mental status with a typical blood pressure in the 110 mmHg range according to her daughter but was noted to be in the 70 systolic range with additional complaints of lightheadedness along with severe tinea cruris. In the ER she was noted to have clinical signs of sepsis with septic shock due to acute cystitis; without hematuria strongly suggested, by leukocytosis of 22.6 present on admission, with lactic acidosis of 3.5 mmol/L present on admission and severe acute renal failure with serum creatinine of 3.73 mg/dL with a BUN of 68 mg/dL present on admission (up from her baseline serum creatinine of 1.41 mg/dL and BUN of 27 mg/dL approximately 2 months ago) compounded by hyperkalemia of 5.4 mmol/L present on admission and hyperbilirubinemia of 1.9 mg/dL present on admission with an AST of 411 units/L and ALT of 152 units/L present on admission and she was then admitted to the PCU for ongoing care for stay that is expected to be greater than 48 hours. [facility] Medical History Anemia Bilateral pulmonary embolism (07/2014) Chronic obstructive pulmonary disease with hypoxia Depression Essential hypertension Morbid obesity Multiple thyroid nodules Osteomyelitis of cervical spine Postoperative atrial fibrillation (06/2014) Type 2 diabetes mellitus Home Medications ergocalciferol (vitamin D2) 1,250 mcg (50,000 unit) capsule 50,000 unit PO MAZA SUPPLEMENT 02/25/20 [History Last Taken 02/20/20] fluoxetine 20 mg capsule 20 mg PO DAILY DEPRESSION 02/25/20 [History Last Taken 02/25/20] gabapentin 100 mg capsule 100 mg PO BID NERVE PAIN 02/25/20 [History Last Taken 02/25/20] potassium chloride 10 mEq tablet,extended release(part/cryst) 10 meq PO DAILY SUPPLEMENT 02/25/20 [History Last Taken 02/25/20] rosuvastatin 5 mg tablet (Crestor) 5 mg PO DAILY 01/16/21 [History Last Taken Unknown] vitamin B complex and vitamin C no.20-folic acid 1 mg capsule (Triphrocaps) 1 cap PO DAILY 01/16/21 [History Last Taken Unknown] lorazepam 0.5 mg tablet (Ativan) 0.5 mg PO TID PRN anxiety 03/12/21 [History Last Taken Unknown] pantoprazole 40 mg tablet,delayed release 40 mg PO DAILY 03/12/21 [History Last Taken Unknown] fluticasone furoate 100 mcg/actuation blister powder for inhalation (Arnuity Ellipta) 1 inh inhalation BID 02/17/23 [History Last Taken Unknown] metoprolol tartrate 25 mg tablet 25 mg PO TID 02/17/23 [History Last Taken Unknown] Allergy/AdvReac Type Severity Reaction Status Date / Time Food Allergies: Uncoded Allergy Swelling Verified 01/28/22 09:49 ibuprofen Allergy Shortness Verified 03/26/21 12:41 of breath oxycodone HCl [From Percocet] Allergy dizziness Verified 03/26/21 12:41 procaine [From Novocain] Allergy Other Verified 03/26/21 12:41 ciprofloxacin HCl AdvReac Other Verified 03/26/21 12:41 [From Cipro] Family History Father Diabetes Surgical History History of History of cholecystectomy History of spinal fusion Social History Smoking Status: Never smoker alcohol intake: never ROS ROS Narrative Review of systems: Constitutional: Patient denies fevers or chills. Eyes: Patient denies visual changes or discharge from eyes. ENT: Patient denies sore throat, ear pain or runny nose. Cardiovascular: Patient denies chest pain or palpitations. She does admit to chronic lower extremity edema. Respiratory: Patient denies shortness of breath or cough. Gastrointestinal: Patient denies abdominal pain, diarrhea, nausea or vomiting. Genitourinary: Patient admits to dysuria and urinary frequency but denies hematuria. Musculoskeletal: Patient denies neck pain or back pain. Integumentary: Patient denies rash or wounds. Neurologic: Patient admits to generalized weakness but denies headache or paresthesias. Allergic: Patient denies lip swelling, tongue swelling or urticaria. Hematologic: Patient denies easy bleeding or easy bruisability. 14 point review of systems otherwise negative except for positives noted above in HPI. Vital Signs Vital Signs Vital Signs: 02/17/23 18:09 02/17/23 18:15 02/17/23 18:08 Temperature 97.5 F L 97.5 F L 97.5 F L Temperature Source Oral Oral Oral Pulse Rate 64 69 64 Respiratory Rate 15 24 H 18 Respiratory Effort Respiratory Pattern Blood Pressure 73/41 L 73/41 L Blood Pressure Mean 51 51 Pulse Ox 93 93 94 Oxygen Delivery Method Room Air Room Air Room Air Oxygen Flow Rate (L/min) 02/17/23 18:23 02/17/23 19:37 Temperature 98.3 F Temperature Source Temporal Pulse Rate 62 Respiratory Rate 28 H Respiratory Effort Normal Non-Labored Respiratory Pattern Normal Blood Pressure 108/65 Blood Pressure Mean 79 Pulse Ox 98 Oxygen Delivery Method Nasal Cannula Oxygen Flow Rate (L/min) 2 Weight Weight: 349 lb 9.6 oz Body Mass Index (BMI) 56.4 Physical Exam Const alert, oriented x3 and no apparent distress Constitutional Narrative: Patient is morbidly obese. General Appearance: cooperative HEENT normocephalic, head/scalp atraumatic, hearing grossly normal bilaterally and moist oral mucous membranes Eyes PERRL, EOMs intact bilaterally and conjunctivae normal Neck no lymphadenopathy and supple Resp normal respiratory effort, no retractions, no use of accessory muscles and clear to auscultation bilaterally Cardio regular rate and regular rhythm GI normal to inspection, nondistended, normoactive bowel sounds, soft to palpation, non-tender and non-distended Extremity normal to inspection and full ROM Skin Skin Narrative: Patient has severe tinea cruris. Neuro oriented x3 and CN's II-XII intact bilaterally Sensorium / Orientation: awake, alert, oriented to person, oriented to place and oriented to time Speech: speech normal Psych affect normal Results Medical Records Data Attestation: I reviewed the patient's medical records Lab / Micro Data Attestation: I reviewed the patient's lab results. 02/17/23 18:33 02/17/23 18:33 Labs: Laboratory Results - last 24 hr 02/17/23 18:33: WBC 22.6 H, RBC 4.67, Hgb 13.7, Hct 43.9, MCV 94.0, MCH 29.3, MCHC 31.2 L, RDW Std Deviation 47.8 H, RDW Coeff of Ruben 14.0, Plt Count 254, MPV 11.6, Immature Gran % (Auto) 1.300 H, Neut % (Auto) 88.1 H, Lymph % (Auto) 3.0 L, [place] % (Auto) 7.2, Eos % (Auto) 0.0, Baso % (Auto) 0.4, Absolute Neuts (auto) 20.0 H, Absolute Lymphs (auto) 0.67 L, Nucleated RBC % 0, Differential Comment SCANNED, Diff Path Review June, Sodium 139, Potassium 5.4 H, Chloride 108 H, Carbon Dioxide 20.0 L, Anion Gap 11, BUN 60 H, Creatinine 3.73 H, Estim Creat Clear Calc 12.01, Est GFR (MDRD) Af Amer 15 L, Est GFR (MDRD) Non-Af 13 L, BUN/Creatinine Ratio 16.1, Glucose 135 H, Calcium 10.4 H 02/17/23 19:05: Urine Color Yellow, Urine Clarity Cloudy, Urine pH 5.0, Ur Specific [place] 1.025, Urine Protein 30 H, Urine Glucose (UA) Normal, Urine Ketones 5 H, Urine Occult Blood 250 H, Urine Nitrite Negative, Urine Bilirubin 1 H, Urine Urobilinogen 1 H, Ur Leukocyte Esterase 500 H, Urine RBC 0 SEEN, Urine WBC >100 SEEN, Ur Squamous Epith Cells 0-5 SEEN, Urine Bacteria 3+, Urine Mucus 0 SEEN 02/17/23 19:35: Lactic Acid 3.5 H* Assessment & Plan Assessment/Plan (1) Severe sepsis: (2) Acute UTI: (3) ROSELYN (acute kidney injury): (4) Acute hyperkalemia: (5) Hyperbilirubinemia: (6) Apnea, sleep: QUALIFIERS: Sleep apnea type: unspecified type Qualified Code(s): G47.30 - Sleep apnea, unspecified PLAN: Plan 1. Severe sepsis with septic shock due to acute cystitis; without hematuria with leukocytosis of 22.6 and lactic acidosis of 3.5 mmol/L present on admission - Admit to PCU for treatment under the sepsis protocol. Given 30 cc/kg fluid bolus and continue broad-spectrum antibiotics and await culture and sensitivity data. Give Tylenol as needed pain or fever. Recheck lactate in 4 hours to document response to therapy. 2. Severe acute renal failure with serum creatinine 3.73 mg/dL and BUN of 68 mg/dL present on admission (up from her baseline serum creatinine of 1.41 mg/dL and BUN of 27 mg/dL approximately 2 months ago) arising from #1 - Continue vigorous volume resuscitation as noted above and recheck BMP in the a.m. to ensure improvement. Avoid any potentially nephrotoxic agents. Finally, we will consult nephrology if this patient's kidney function does not markedly improve with the above treatment. 3. Hyperkalemia of 5.4 mmol/L present on admission complicating #1 & #2 - Give IVF's and recheck level in the a.m. to ensure improvement. 4. Hyperbilirubinemia of 1.9 mg/dL present on admission with an AST of 411 units/L and ALT of 152 units/L present on admission in the setting of known previous cholecystectomy - Check liver ultrasound to evaluate for possible liver pathology. Check hepatitis profile. Recheck CMP in the a.m. to follow trend. 5. Generalized Weakness with Ambulatory Dysfunction in the setting of Morbid obesity; with BMI of 56.4 this admission and history of spinal fusion (T9-L4) with patient primarily using a wheelchair to mobilize but can occasionally use a walker - Weight loss will be recommended. PT/OT and Case Management to consult and treat on-rounds in the AM for further recommendations with help appreciated in advance. 6. Severe tinea cruris - Start Nystatin powder TID. 7. Essential hypertension - Hold scheduled antihypertensives in light of #1 & #2. 8. Hyperlipidemia - Hold statin with elevated LFT's. Check Lipid Profile this admission. 9. Diabetes mellitus type 2; of unknown control - ADA/Renal diet. FSBS q. AC/HS plus SSI. Check HgbA1c to objectively assess quality of diabetic control. 10. History of COPD - Stable. Give nebulizers prn. 11. History of bilateral pulmonary emboli (2014) - Noted. 12. History of postoperative atrial fibrillation (2014) - Noted with patient currently in NSR. 13. History of osteomyelitis of the cervical spine - Noted. 14. History of multiple thyroid nodules - Noted. 15. Chronic anemia - Stable. 16. History of chronic lower extremity swelling; with chronic venous stasis - Stable. 17. GERD - Continue PPI. 18. Depression with anxiety - Resume home regimen. 19. DVT prophylaxis - Heparin 5,000 units sq TID. Total time: Approximately 95 minutes. Update: Patient was rechecked approximately 4 hours after admission with lactic acidosis of 3.5 mmol/L present on admission now down to 1.9 mmol/L after the initial round of treatment. Her vital signs have also improved and she remains alert and denies acute complaints. [employer] was updated with plan. Sepsis Attestation Sepsis Alert: Yes Sepsis Attestation: Agree w/Sepsis Date exam was performed: 02/17/23 Time exam was performed: 20:30 Possible Source of Sepsis: Genitourinary Sepsis Organ Dysfunction Criteria Present: SBP < 90 mmHg or MAP < 65 mmHg, Creatinine > 2.0 mg/dL and Lactic Acid > 2 mmol/L Fluid Resuscitation Fluid resuscitation indicated?: Yes Fluid Resuscitation ordered: 30 ml/kg fluid bolus ordered Amount of fluid ordered: 5 Sepsis Note Date exam was performed: 02/18/23 Time exam was performed: 00:30 Sepsis Attestation: Sepsis re-evaluation was performed Response to fluids: Fluid responsive hypotension Charges/Coding Visit Charges Inpatient E&M: 16745 Init Hosp L3
[2023-02-17 20:23] LABS: AST(SGOT) 411 U/L (15-37); Alanine Aminotransfer ALT/SGPT 152 U/L (13-56); Albumin, Serum 3.3 g/dL (3.2-5.0); Alkaline Phosphatase 75 U/L (45-117); Bilirubin, Direct 0.62 mg/dL (0.00-0.30); Globulin 4.2 g/dL (2.2-4.2); Protein, Total 7.5 g/dL (6.4-8.2)
[2023-02-17 20:28] LABS: International Normalized Ratio 1.2; Partial Thromboplast Time 33.3 Seconds (24.1-36.2); Prothrombin Time (Protime)PT. 15.3 SECONDS (11.7-14.9)
[2023-02-17] MEDS: Miconazole Nitrate 43 GM Bottle 1 APPLIC TOPICAL (20:35)
[2023-02-17] MEDS: 0.9% Normal Saline (1000mL) 1,000 ML 999 ML IV ×2 (21:40→23:43)
[2023-02-17] MEDS: 0.9% Normal Saline (250mL Bag) 250 ML 15 ML IV (22:35)
[2023-02-17] MEDS: Budesonide Respules 0.5 MG/2 ML AMPUL.NEB. INHALATION (22:40)
[2023-02-17] MEDS: Piperacil/Tazobactam 3.375 GM in 0.9% Normal Saline (50mL MB+) 50 ML IV (22:41)
[2023-02-17 23:45] LABS: Reflex Lactate? Y
[2023-02-17] MEDS: Gabapentin 100 MG Capsule PO (23:59)
[2023-02-18] VITALS (38 sets, daily range): BP systolic 57–136; BP diastolic 32–94; PULSE 64–96; RESP 13–30; TEMP 36.5–36.9; O2SAT 90–100; BMI 52.2
[2023-02-18 00:11] LABS: Lactic Acid 1.9 mmol/L (0.4-1.9)
[2023-02-18] MEDS: 0.9% Normal Saline (1000mL) 1,000 ML 999 ML IV ×2 (00:47→01:48)
[2023-02-18] MEDS: 0.9% Normal Saline (1000mL) 1,000 ML 150 ML IV ×4 (02:40→22:43)
--- NOTE | 2023-02-18 06:00 | US_ITS ---
HISTORY: Hyperbilirubinemia with increased LFTs. TECHNIQUE: Park scale and color doppler imaging was performed of the right upper quadrant. 76 images. COMPARISON: None. FINDINGS: LIVER: 18.1 cm in length. Mildly echogenic without focal lesion demonstrated. No intrahepatic ductal dilatation. MAIN PORTAL VEIN: Patent with hepatopedal flow. COMMON BILE DUCT: 5 mm in diameter. GALLBLADDER: Surgically absent. PANCREAS: Partially obscured due to overlying bowel gas. RIGHT KIDNEY: 11.2 cm in length with a cortical thickness of 1 cm. No hydronephrosis or gross renal mass demonstrated. US/Liver IMPRESSION: Mild hepatomegaly with mild heterogeneity of the liver from hepatic steatosis or other hepatocellular disease. Consider CT correlation. Cholecystectomy. Electronically Signed: Merlyn Bernal MD at 9:41 EST ,
[2023-02-18] MEDS: Norepinephrine 8 MG in 0.9% Normal Saline (250mL Bag) 242 ML 9.40000000000000036 MG CONT INF (07:00)
[2023-02-18] MEDS: Budesonide Respules 0.5 MG/2 ML AMPUL.NEB. INHALATION ×2 (08:01→19:48)
[2023-02-18] MEDS: Ascorbic Acid 500 MG Tablet 1000 MG PO ×2 (08:05→16:08)
--- NOTE | 2023-02-18 08:39 | CON.PCM.CC_ITS ---
Assessment & Plan Assessment/Plan (1) Acute UTI: (2) Septic shock due to urinary tract infection: (3) Apnea, sleep: QUALIFIERS: Sleep apnea type: unspecified type Qualified Code(s): G47.30 - Sleep apnea, unspecified (4) ROSELYN (acute kidney injury): PLAN: Plan RECOMMENDATIONS: 1. Initiate peripheral Levophed pending discussion with family 2. Wean oxygen as tolerated 3. Continue BiPAP with sleep 4. Consider wound nurse consult for skin breakdown 5. PT/OT for evaluation of ambulation IMPRESSIONS: 1. Septic shock secondary to probable gram-negative UTI Patient does have a UA suggestive of urinary tract infection. Given pro gression of hypotension following antibiotics, this would suggest a gram- negative etiology. Patient has been on antibiotics recently, so we will continue with Zosyn for empiric therapy. Patient is very hesitant about any central line, so Levophed will be initiated peripherally until further discus ba can be had with family to determine goals of therapy. 2. ROBBI with reported asthma Patient does have a baseline obstructive sleep apnea and reportedly is compliant with ROBBI therapy. Patient tolerated this well overnight. Patient is on Symbicort at home, but no pulmonary function tests are available for review. Budesonide therapeutic substitution likely appropriate. Cannot exclude the need for increased oxygen requirements overnight given fluid resuscitation. 3. Acute on chronic kidney disease stage III Clinical suspicion for prerenal etiology secondary to problem #1. Patient's baseline creatinine appears to be between 1.3 and 1.4. Continue with aggressive BP support. Patient does state that she doubts that she would be agreeable to dialysis at this time. Patient does not have any indication for renal replacement therapy, so we will hold off on nephrology consult for now. Patient did have significant hyperkalemia on presentation, but this may be secondary to acidosis. 4. Tinea cruris Patient does have significant breakdown. Patient has been initiated on nystatin powder. Could consider wound nurse evaluation moving forward. Patient does have some gram-positive coverage with Zosyn. 5. Generalized weakness/morbid obesity/hypertension/hyperlipidemia/diabetes mellitus type 2/anemia/anxiety/advanced age/edema Complicates care, management, recovery and prognosis. Patient reportedly was recently placed on Lasix secondary to lower extremity edema. This, and antihypertensives, has been held secondary to problem #1 and #3. Would use benzodiazepines sparingly as patient is at risk for the development of delirium. Will attempt to discuss with patient and family later today about goals of therapy regarding central line and CODE STATUS. Addendum 9:52 AM: Discussed with daughter and the patient at length about her current situation. Patient states that she may have dialysis if it is needed. Annikapam stanley did verify that she is a full code. Patient would like to avoid any central lines for now as her pressor requirements are improving. Patient states that if she did elevate to 10 of Levophed that she would be willing to have a PICC placed. The patient and daughter are hopeful that she will continue to improve and will not require any central line. Patient's daughter did report that she was intubated for 2 weeks following a back surgery at [facility]. Patient did have dialysis during that episode, but was able to be weaned from [employer]. Patient's daughter also verify that she has never been hospitalized for urinary tract infection previously, but has been on antibiotics twice in the last 3 months for urine infections. TIME: 53 minutes of critical care time spent addressing patient's septic shock, ROBBI, acute kidney injury, tinea cruris, diabetes, review of all data and collaboration with care team HPI Consult Data Date of Consult: 02/18/23 HPI Narrative HPI Narrative: CLAIRE PIRES is a 77 F, with past medical history listed below, who presents to [facility] on 02/17/2023 secondary to progressive weakness. Patient reportedly uses a wheelchair most of the time at home, but recently was having difficulty with ambulation with walker. Patient reportedly had reported some dysuria of 2 days prior and was also having some frequency. Patient is on Lasix at baseline, so it is unclear if this was related to medications. No fevers have been reported. Patient reportedly did not have any cough and was mentating at baseline per her daughter. Patient reportedly had complained of some orthostatic type symptoms. There was no concern of unintentional overdose with medications. In the ER, patient was afebrile, but tachypneic at 24 breaths/min. Patient was initially hypotensive at 73/41 and saturating well on room air. Patient did receive a 30 cc/kg bolus of fluids with improvement in blood pressure. Patient did require 2 L/min to maintain saturations. Laboratory data showed a white blood cell count of 22.6, hemoglobin of 13.7 and platelets of 254. Chemistry did show a bicarbonate of 20 with a potassium of 5.4 and a glucose of 135. Initial lactate was elevated at 3.5 along with a total bilirubin of 1.9. UA was suggestive of urinary tract infection. Coagulation studies were within normal limits. Patient was admitted to the ICU on PCU status. Overnight, patient started to become more hypotensive. This morning, patient had 2 blood pressures of around 84/41. Patient had already received fluid resuscitation and was on her home BiPAP settings. Patient was placed on Levophed and a critical care consult was obtained. Patient reports she has had multiple urinary tract infections in the past. Patient reports that this has never resulted in a hospitalization previously. Patient denies any history of MDRO. Patient states she has been on antibiotics twice in the last 3 months, but is unclear of the exact medication. Patient valentine bjectively feels slightly improved since being hospitalized. Patient is not reporting any recent instrumentation. Patient has not reported any black bowel movements or hematemesis. Discussed with the patient about the possibility of using a central line. Patient is very hesitant and wants to discuss with her daughter before moving forward. Patient is okay with the initiation of Levophed to maintain blood pressures. Patient understands that she does have some renal dysfunction that may be secondary to her sepsis, but is stating that she likely would not agree to dialysis moving forward. Patient is not aware of any previous liver issues. Review of systems otherwise negative from a constitutional, HEENT, respiratory, cardiovascular, GI, genitourinary, musculoskeletal, skin, neurologic, psychiatric and hematologic system unless stated above. [facility] Medical History Anemia Bilateral pulmonary embolism (07/2014) Chronic obstructive pulmonary disease with hypoxia Depression Essential hypertension Morbid obesity Multiple thyroid nodules Osteomyelitis of cervical spine Postoperative atrial fibrillation (06/2014) Type 2 diabetes mellitus Home Medications ergocalciferol (vitamin D2) 1,250 mcg (50,000 unit) capsule 50,000 unit PO VALENTINE SUPPLEMENT 02/25/20 [History Last Taken 02/20/20] fluoxetine 20 mg capsule 20 mg PO DAILY DEPRESSION 02/25/20 [History Last Taken 02/25/20] gabapentin 100 mg capsule 100 mg PO BID NERVE PAIN 02/25/20 [History Last Taken 02/25/20] potassium chloride 10 mEq tablet,extended release(part/cryst) 10 meq PO DAILY SUPPLEMENT 02/25/20 [History Last Taken 02/25/20] rosuvastatin 5 mg tablet (Crestor) 5 mg PO DAILY 01/16/21 [History Last Taken Unknown] vitamin B complex and vitamin C no.20-folic acid 1 mg capsule (Triphrocaps) 1 cap PO DAILY 01/16/21 [History Last Taken Unknown] lorazepam 0.5 mg tablet (Ativan) 0.5 mg PO TID PRN anxiety 03/12/21 [History Last Taken Unknown] pantoprazole 40 mg tablet,delayed release 40 mg PO DAILY 03/12/21 [History Last Taken Unknown] fluticasone furoate 100 mcg/actuation blister powder for inhalation (Arnuity Ellipta) 1 inh inhalation BID 02/17/23 [History Last Taken Unknown] metoprolol tartrate 25 mg tablet 25 mg PO TID 02/17/23 [History Last Taken Unknown] Allergy/AdvReac Type Severity Reaction Status Date / Time Food Allergies: Uncoded Allergy Swelling Verified 01/28/22 09:49 ibuprofen Allergy Shortness Verified 03/26/21 12:41 of breath oxycodone HCl [From Percocet] Allergy dizziness Verified 03/26/21 12:41 procaine [From Novocain] Allergy Other Verified 03/26/21 12:41 ciprofloxacin HCl AdvReac Other Verified 03/26/21 12:41 [From Cipro] Family History Father Diabetes Surgical History History of History of cholecystectomy History of spinal fusion Social History Smoking Status: Never smoker alcohol intake: never Physical Exam Const alert, oriented x3 and no apparent distress Constitutional Narrative: Patient is morbidly obese. On BiPAP during my evaluation General Appearance: cooperative HEENT normocephalic, head/scalp atraumatic and hearing grossly normal bilaterally Eyes PERRL, EOMs intact bilaterally and conjunctivae normal Eyes Narrative: Slight scleral injection without icterus Neck no lymphadenopathy and supple Neck Narrative: Significant kyphosis Resp normal respiratory effort, no retractions, no use of accessory muscles and clear to auscultation bilaterally Cardio regular rate, regular rhythm, S1 normal heart sound, S2 normal heart sound, no murmurs, no rub and no gallops GI normal to inspection, nondistended, normoactive bowel sounds, soft to palpation, non-tender and non-distended GI Narrative: Significant abdominal adiposity Back/Spine Back/Spine Narrative: Significant kyphosis noted Extremity normal to inspection and full ROM General Extremity: Negative for clubbing or edema Skin Skin Narrative: Patient has severe tinea cruris. Venous stasis changes noted of bilateral lower extremities Neuro oriented x3, CN's II-XII intact bilaterally and moves all extremities Psych cooperative and affect normal Medical Records Data Attestation: I reviewed the patient's medical records Medical records narrative: Patient had a normal white blood cell count in November and appears to have a baseline creatinine of approximately 1.3. LFTs and bilirubin were normal in November of this year. Patient does not appear to have any history of MDRO in our computer. Patient's last echocardiogram was completed in 2020 showing an EF of 65% with indeterminate diastolic function. There was some concern about possible mild aortic stenosis, but the study was technically difficult. Patient does have a sleep study in 2021 showing a titration to BiPAP 12/8 cmH2O with a 1 L bleed Lab / Micro Data Attestation: I reviewed the patient's lab results. 02/17/23 18:33 02/17/23 18:33 Labs: Laboratory Results - last 24 hr 02/17/23 18:33: WBC 22.6 H, RBC 4.67, Hgb 13.7, Hct 43.9, MCV 94.0, MCH 29.3, MCHC 31.2 L, RDW Std Deviation 47.8 H, RDW Coeff of Ruben 14.0, Plt Count 254, MPV 11.6, Immature Gran % (Auto) 1.300 H, Neut % (Auto) 88.1 H, Lymph % (Auto) 3.0 L , Branch % (Auto) 7.2, Eos % (Auto) 0.0, Baso % (Auto) 0.4, Absolute Neuts (auto) 20.0 H, Absolute Lymphs (auto) 0.67 L, Nucleated RBC % 0, Differential Comment SCANNED, Diff Path Review June, Sodium 139, Potassium 5.4 H, Chloride 108 H, Carbon Dioxide 20.0 L, Anion Gap 11, BUN 60 H, Creatinine 3.73 H, Estim Creat Clear Calc 12.01, Est GFR (MDRD) Af Amer 15 L, Est GFR (MDRD) Non-Af 13 L, BUN/Creatinine Ratio 16.1, Glucose 135 H, Calcium 10.4 H, Total Bilirubin 1.90 H , Direct Bilirubin 0.62 H, AST 411 H, ALT 152 H, Alkaline Phosphatase 75, Total Protein 7.5, Albumin 3.3, Globulin 4.2 02/17/23 19:05: Urine Color Yellow, Urine Clarity Cloudy, Urine pH 5.0, Ur Specific [place] 1.025, Urine Protein 30 H, Urine Glucose (UA) Normal, Urine Ketones 5 H, Urine Occult Blood 250 H, Urine Nitrite Negative, Urine Bilirubin 1 H, Urine Urobilinogen 1 H, Ur Leukocyte Esterase 500 H, Urine RBC 0 SEEN, Urine WBC >100 SEEN, Ur Squamous Epith Cells 0-5 SEEN, Urine Bacteria 3+, Urine Mucus 0 SEEN 02/17/23 19:35: Lactic Acid 3.5 H* 02/17/23 20:10: PT 15.3 H, INR 1.2, APTT 33.3 02/17/23 23:30: Lactic Acid 1.9 Sepsis Attestation Sepsis Attestation: Agree w/Sepsis Date exam was performed: 02/18/23 Time exam was performed: 07:00 Possible Source of Sepsis: Genitourinary Sepsis Organ Dysfunction Criteria Present: SBP < 90 mmHg or MAP < 65 mmHg and Creatinine > 2.0 mg/dL Fluid Resuscitation Reason for lesser fluid bolus:: Other (Already received significant fluids) Sepsis Note Date exam was performed: 02/18/23 Time exam was performed: 07:00 Sepsis Attestation: Sepsis re-evaluation was performed Response to fluids: Non Fluid responsive hypotension and Vasopressors started Charges/Coding Procedures Hospitalists Procedures: 98003 Critical Care 1st Hr
--- NOTE | 2023-02-18 08:42 | PCM.PN.HOSP ---
Subjective Subjective On her home BiPAP, she refused central line and seems to indicate that she does not want extraordinary measures though she did defer to her daughter who will be coming in at 9 AM for rounds Objective Data Objective Data Vital Signs: Vital Signs Temp Pulse Resp BP Pulse Ox O2 Del Method O2 Flow Rate 98.4 F 76 22 H 109/66 94 Room Air 2 02/18/23 08:00 02/18/23 08:00 02/18/23 08:00 02/18/23 08:00 02/18/23 08:00 02/18/23 08:00 02/18/23 07:57 Oxygen Flow Rate (L/min) 2 Oxygen Delivery Method Room Air Weight: 344 lb 5.793 oz Body Mass Index (BMI) 52.2 Intake & Output: Intake and Output for Last 24 Hours 02/17/23 02/18/23 02/19/23 03:59 03:59 03:59 Intake Total 5101.5 / 5101.5 9.40 / 9.40 Output Total 150 / 150 Balance 5101.5 / 5101.5 -140.60 / -140.60 Lab / Micro Data 02/17/23 18:33 02/17/23 18:33 Labs: Laboratory Results - last 24 hr 02/17/23 18:33: WBC 22.6 H, RBC 4.67, Hgb 13.7, Hct 43.9, MCV 94.0, MCH 29.3, MCHC 31.2 L, RDW Std Deviation 47.8 H, RDW Coeff of Ruben 14.0, Plt Count 254, MPV 11.6, Immature Gran % (Auto) 1.300 H, Neut % (Auto) 88.1 H, Lymph % (Auto) 3.0 L, Whitman % (Auto) 7.2, Eos % (Auto) 0.0, Baso % (Auto) 0.4, Absolute Neuts (auto) 20.0 H, Absolute Lymphs (auto) 0.67 L, Nucleated RBC % 0, Differential Comment SCANNED, Diff Path Review June, Sodium 139, Potassium 5.4 H, Chloride 108 H, Carbon Dioxide 20.0 L, Anion Gap 11, BUN 60 H, Creatinine 3.73 H, Estim Creat Clear Calc 12.01, Est GFR (MDRD) Af Amer 15 L, Est GFR (MDRD) Non-Af 13 L, BUN/Creatinine Ratio 16.1, Glucose 135 H, Calcium 10.4 H, Total Bilirubin 1.90 H, Direct Bilirubin 0.62 H, AST 411 H, ALT 152 H, Alkaline Phosphatase 75, Total Protein 7.5, Albumin 3.3, Globulin 4.2 02/17/23 19:05: Urine Color Yellow, Urine Clarity Cloudy, Urine pH 5.0, Ur Specific [place] 1.025, Urine Protein 30 H, Urine Glucose (UA) Normal, Urine Ketones 5 H, Urine Occult Blood 250 H, Urine Nitrite Negative, Urine Bilirubin 1 H, Urine Urobilinogen 1 H, Ur Leukocyte Esterase 500 H, Urine RBC 0 SEEN, Urine WBC >100 SEEN, Ur Squamous Epith Cells 0-5 SEEN, Urine Bacteria 3+, Urine Mucus 0 SEEN 02/17/23 19:35: Lactic Acid 3.5 H* 02/17/23 20:10: PT 15.3 H, INR 1.2, APTT 33.3 02/17/23 23:30: Lactic Acid 1.9 Physical Exam Narrative General: Alert, Oriented x3, Cooperative, No apparent distress HEENT: Atraumatic, PERRLA, EOMI, Normocephalic Oral: Moist Mucosa Neck: Supple, No JVD Lungs: Diminished, Normal air movement, No rhonchi, No wheeze, No rales Cardiovascular: Regular rate, Regular Rhythm, Normal S1, Normal S2, No murmurs Abdomen: Soft, Non Tender, Non-Distended, No Hepato-splenomegaly Extremities: No edema, Capillary Refill Less than 3 Seconds Skin: Fungal rash in her groin Musculoskeletal: No Tenderness to Palpation of Joints or Extremities Neurological: Moves all extremities, no focal deficits, Sensory exam intact to light touch and pain Psych/Mental Status: Normal Affect, Appropriate Assessment & Plan Assessment/Plan (1) Severe sepsis: (2) Acute UTI: (3) ROSELYN (acute kidney injury): PLAN: Plan 1. Septic shock secondary to UTI with an ROSELYN/generalized weakness and debility/elevated LFTs ? Continue with IV antibiotics ? Cultures are pending ? Will need to be initiated on peripheral pressors pending discussion with her daughter about advance care planning and measures including central line ? Continue with IV fluids, will monitor renal function ? Appreciate production line manager assistance ? Elevated LFTs can be secondary to her sepsis, hepatitis panel is pending ? PT/OT 2. HTN/HLD/paroxysmal A-fib ? We will hold her blood pressure medication secondary to her hypotension and septic shock ? We will hold her statin secondary to her LFTs ? Will monitor for A-fib and make any adjustments necessary 3. DM2 ? Accu-Cheks ACHS ? Sliding scale insulin ? Will monitor and make adjustments as necessary ? A1c of 5.7 4. COPD/ROBBI ? Not in exacerbation ? Continue with her home BiPAP ? Continue with as needed inhalers 5. GERD ? Stable ? Continue with PPI 6. Anxiety/depression ? Stable ? Continue with her home medications DVT: Heparin Charges/Coding Visit Charges Inpatient E&M: 89530 Subs Hosp L2
[2023-02-18] MEDS: Zinc Sulfate 50 mg zinc (220 mg) ORAL capsule PO (09:34)
[2023-02-18] MEDS: FLUoxetine 20 MG Capsule PO (09:34)
[2023-02-18] MEDS: Piperacil/Tazobactam 3.375 GM in 0.9% Normal Saline (50mL MB+) 50 ML IV ×2 (09:34→22:06)
[2023-02-18] MEDS: Folic Acid/Vitamin B Comp W-C 1 Capsule 1 CAP PO (09:34)
[2023-02-18] MEDS: Pantoprazole Sodium 40 MG Tablet PO (09:34)
[2023-02-18] MEDS: 0.9% Saline Lock 10 ML Syringe IV (09:37)
[2023-02-18] MEDS: Gabapentin 100 MG Capsule PO ×2 (09:37→22:07)
--- NOTE | 2023-02-18 09:50 | PCM.CONS.R ---
Assessment & Plan Assessment/Plan (1) ROSELYN (acute kidney injury): PLAN: Acute renal failure. Presumably due to severe sepsis. She has known history of CKD stage IIIa, baseline creatinine around 1.3-1.5. Urine analysis consistent with UTI, on broad-spectrum coverage. Urine cultures pending. Consider abdominal imaging Continue supportive therapy. No acute indications for renal replacement therapy. As per ICU note, she may not even want dialysis even if offered HPI Consult Data Date of Consult: 02/18/23 HPI Narrative Reason for Consultation: Acute renal failure HPI Narrative: CLAIRE PIRES, is a 77 F who presents to the hospital with sepsis, presumably secondary to UTI/pyelonephritis. Nephrology on consultation due to acute renal failure. She has known history of CKD stage IIIa, baseline creatinine around 1.4 or so. Increased to 3.5 today. She has no history of repeated UTIs, follows with primary care physician. Just finished a course of antibiotics on . She says she was using amoxicillin. Presented with fever, dysuria. Currently in septic shock, again presumably urinary origin. On broad-spectrum antibiotics as per ICU. Lincoln catheter indwelling, urine output has been on the lower side. [facility] Medical History Anemia Bilateral pulmonary embolism (07/2014) Chronic obstructive pulmonary disease with hypoxia Depression Essential hypertension Morbid obesity Multiple thyroid nodules Osteomyelitis of cervical spine Postoperative atrial fibrillation (06/2014) Type 2 diabetes mellitus Home Medications ergocalciferol (vitamin D2) 1,250 mcg (50,000 unit) capsule 50,000 unit PO MAZA SUPPLEMENT 02/25/20 [History Last Taken 02/20/20] fluoxetine 20 mg capsule 20 mg PO DAILY DEPRESSION 02/25/20 [History Last Taken 02/25/20] gabapentin 100 mg capsule 100 mg PO BID NERVE PAIN 02/25/20 [History Last Taken 02/25/20] potassium chloride 10 mEq tablet,extended release(part/cryst) 10 meq PO DAILY SUPPLEMENT 02/25/20 [History Last Taken 02/25/20] rosuvastatin 5 mg tablet (Crestor) 5 mg PO DAILY 01/16/21 [History Last Taken Unknown] vitamin B complex and vitamin C no.20-folic acid 1 mg capsule (Triphrocaps) 1 cap PO DAILY 01/16/21 [History Last Taken Unknown] lorazepam 0.5 mg tablet (Ativan) 0.5 mg PO TID PRN anxiety 03/12/21 [History Last Taken Unknown] pantoprazole 40 mg tablet,delayed release 40 mg PO DAILY 03/12/21 [History Last Taken Unknown] fluticasone furoate 100 mcg/actuation blister powder for inhalation (Arnuity Ellipta) 1 inh inhalation BID 02/17/23 [History Last Taken Unknown] metoprolol tartrate 25 mg tablet 25 mg PO TID 02/17/23 [History Last Taken Unknown] Allergy/AdvReac Type Severity Reaction Status Date / Time Food Allergies: Uncoded Allergy Swelling Verified 01/28/22 09:49 ibuprofen Allergy Shortness Verified 03/26/21 12:41 of breath oxycodone HCl [From Percocet] Allergy dizziness Verified 03/26/21 12:41 procaine [From Novocain] Allergy Other Verified 03/26/21 12:41 ciprofloxacin HCl AdvReac Other Verified 03/26/21 12:41 [From Cipro] Family History Father Diabetes Surgical History History of History of cholecystectomy History of spinal fusion Social History Smoking Status: Never smoker alcohol intake: never ROS ROS Narrative Negative except above Physical Exam Narrative Alert awake oriented x 3 no obvious distress no pallor no icterus no JVD s1s2 no murmurs lungs clear abdomen soft no organomegaly no edema no cyanosis lincoln + Lab / Micro Data 02/17/23 18:33 02/17/23 18:33 Labs: Laboratory Results - last 24 hr 02/17/23 18:33: WBC 22.6 H, RBC 4.67, Hgb 13.7, Hct 43.9, MCV 94.0, MCH 29.3, MCHC 31.2 L, RDW Std Deviation 47.8 H, RDW Coeff of Ruben 14.0, Plt Count 254, MPV 11.6, Immature Gran % (Auto) 1.300 H, Neut % (Auto) 88.1 H, Lymph % (Auto) 3.0 L, [place] % (Auto) 7.2, Eos % (Auto) 0.0, Baso % (Auto) 0.4, Absolute Neuts (auto) 20.0 H, Absolute Lymphs (auto) 0.67 L, Nucleated RBC % 0, Differential Comment SCANNED, Diff Path Review June, Sodium 139, Potassium 5.4 H, Chloride 108 H, Carbon Dioxide 20.0 L, Anion Gap 11, BUN 60 H, Creatinine 3.73 H, Estim Creat Clear Calc 12.01, Est GFR (MDRD) Af Amer 15 L, Est GFR (MDRD) Non-Af 13 L, BUN/Creatinine Ratio 16.1, Glucose 135 H, Calcium 10.4 H, Total Bilirubin 1.90 H, Direct Bilirubin 0.62 H, AST 411 H, ALT 152 H, Alkaline Phosphatase 75, Total Protein 7.5, Albumin 3.3, Globulin 4.2 02/17/23 19:05: Urine Color Yellow, Urine Clarity Cloudy, Urine pH 5.0, Ur Specific [place] 1.025, Urine Protein 30 H, Urine Glucose (UA) Normal, Urine Ketones 5 H, Urine Occult Blood 250 H, Urine Nitrite Negative, Urine Bilirubin 1 H, Urine Urobilinogen 1 H, Ur Leukocyte Esterase 500 H, Urine RBC 0 SEEN, Urine WBC >100 SEEN, Ur Squamous Epith Cells 0-5 SEEN, Urine Bacteria 3+, Urine Mucus 0 SEEN 02/17/23 19:35: Lactic Acid 3.5 H* 02/17/23 20:10: PT 15.3 H, INR 1.2, APTT 33.3 02/17/23 23:30: Lactic Acid 1.9 Micro: Microbiology 02/17/23 19:05 Urine Catheter - Lincoln Urine Culture - Preliminary 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 Consider CT correlation. Cholecystectomy. Electronically Signed: Merlyn Bernal MD at 9:41 EST ,
--- NOTE | 2023-02-18 10:26 | CASEMGMT ---
Addendum entered by Ella Do 02/18/23 11:30: Pt also has a glucometer w/supplies. Original Note: RN?CM?TROLLEY COLLECTOR?CM?to room to meet with patient for initial transition planning/care coordination?assessment.?RN?CM?introduced self and role at [facility].? Pt voices understanding and consents to?assessment?at this time.? Pt resting in bed in no distress at this time.? Pt was awake initially and answered some questions but kept falling back asleep. Neema, dtr/MAXIM, who is at bedside answered most questions. Care providers, pharmacy, and demographics verified/updated at this time. PCP: Dr Mireles Specialists: Dr Cole-tutor. Pt also sees another tutor @ [facility], but dtr does not recall his name. Preferred Pharmacy: [facility] Retail @ discharge Insurance: [employer], Other commercial Prescription Benefit:?Yes Living Will/HPOA:?Has both LW and HCPOA. Dtr/Neema, is HCPOA. These are not on file @ [facility]. Neema states she can try to bring them in. LNOK: Dtr/POTrini, Neema. Only child Living Arrangements: Lives w/dtr, Neema, in 2-story home w/ramp entrance. FFSU. Neema states pt is independent w/ADL's, IADL's, and manages her own medications. Transportation:?Pt states drives self and states no transportation concerns at this time.?Neema also drives. DME: States has the following DME:?W/C, walker, BSC, scooter, shower chair, pulse ox, O2 through [employer] @ 1 l/m bleed-in through [employer]. Pt is mostly W/C bound. She can stand/pivot. Does not have a medical alert button. Offered information on list of companies and same provided to them. HHC/SNF: Has had [facility]HC in the past. Has been to [facility] and [facility] in [place] about 10 yrs ago after back surgery. Neema states preference is for pt to discharge home, if strong enough. They may be interested in HHC or OP therapy @ [facility]. Neema states they were just talking about pt going to recently. If SNF is recommended/needed @ d/c, they may be amenable to this as well. Therapy evals pending. CM?to follow for any increase in home oxygen needs and any further discharge planning/needs.? Pt and dtr voice no further concerns/needs at this time.? Advised them to ask for?CM?if any further questions/concerns/needs arise.? They voice understanding. PLAN:??TBD by course of treatment and progress w/therapy. Home w/HHC or OP therapy vs SNF. PT/OT evals pending. Gee BSN?RN?CM
[2023-02-18 14:20] LABS: Pathologist Review Reviewed
--- NOTE | 2023-02-18 15:26 | WOUNDNOTE ---
wound photo: right posterior lower leg
--- NOTE | 2023-02-18 15:27 | WOUNDNOTE ---
wound photo: left posterior lower leg
--- NOTE | 2023-02-18 16:04 | CHAPLAIN ---
Type of Pastoral Visit _x_ Initial Visit ___ Follow-up Visit ___ On-call Visit ___ General Patient Visit ___ Spiritual Assessment ___ Family Conference ___ Bereavement ___ Rapid Response ___ Code Blue ___ Other (describe below) Pastoral Care Referral From ___ Patient _x__ Family ___ Nurse ___ Physician ___ Genomics Scientist ___ Strategy Execution Consultant ___ Other (describe below) Sacrament/Intervention _x__ Active listening ___ Anointing ___ Congregation ___ Bereavement ___ Communion ___ Caryn exploration ___ _x__ Life review ___ Prayer ___ Reconciliation ___ Sacrament of Sick _x__ Supportive presence ___ Wedding ___ Other (describe below) Pastoral Comments patient is sleeping but daughter is at bedside; daughter talks about the situation and health needs of her mother; daughter lives sewing department supervisor out of state but comes home every month for 2-3 weeks to help assist mother; mother is member of a local judaism and would appreciate prayers pre daughter's report; will check on patient at another day if awake
--- NOTE | 2023-02-18 18:34 | NURSING ---
02/18/23@1800- IRRIGATED F/C WITH 25 ML OF STERILE WATER DUE TO LOW URINE OUTPUT. F/C FLUSHED WITH EASE AND AMOUNT INSTILLED WAS RETURNED. WILL CONTINUE TO MONITOR.
[2023-02-18] MEDS: Albuterol 2.5 MG/3 ML VIAL.NEB. INHALATION (19:48)
[2023-02-19] VITALS (49 sets, daily range): BP systolic 89–142; BP diastolic 36–73; PULSE 73–105; RESP 12–29; TEMP 36.4–36.7; O2SAT 87–100; BMI 53.7
[2023-02-19] MEDS: Albumin Human 25% (100 mL) 25 GM/100 ML BAG IV (00:19)
[2023-02-19] MEDS: Norepinephrine 8 MG in 0.9% Normal Saline (250mL Bag) 242 ML 18.8000000000000007 MG CONT INF (02:30)
[2023-02-19 03:38] LABS: Absolute Neutrophil Count 12.2 X10^3/uL (2.0-7.7); Basophil# 0.06 X10^3/uL; Basophil% 0.4 % (0-1); Eosinophil# 0.17 X10^3/uL; Eosinophils% 1.2 % (0-5); Hematocrit 34.3 % (37-47); Hemoglobin 10.7 g/dL (12.0-15.0); Lymphocyte % 5.4 % (19-41); Mean Corp Hgb Conc 31.2 g/dL (32-36); Mean Corpuscular Hgb 29.4 pg (27.0-32.0); Mean Corpuscular Volume 94.2 fL (81-99); Mean Platelet Vol. 12.1 fl (6.2-12.0); Monocyte% 9.5 % (0-10); NRBC Flagged by Analyzer 0 % (0-5); Neutrophil # 12.22 X10^3/uL (2.7-7.7); Neutrophil % 82.7 % (47-70); Platelet Count 166 K/mm3 (150-450); RBC Distribution Width CV 14.6 % (11.6-14.6); RBC Distribution Width SD 50.5 fl (35.1-43.9); Red Blood Count 3.64 M/mm3 (4.2-5.4); White Blood Count 14.8 K/mm3 (4.4-11.0)
[2023-02-19 04:08] LABS: Anion Gap 10 (5-15); BUN 68 mg/dL (7-18); BUN/Creat Ratio 16.9 RATIO (10-20); Chloride 117 mmol/L (98-107); Creatinine, Serum 4.03 mg/dL (0.55-1.02); EST Glomerular Filtration Rate 12 mL/min (>60); Est Glom Filt Rate - Afr Amer 14 mL/min (>60); Estimated Creatinine Clearance 11.98 ml/min; Glucose 121 mg/dL (74-106); Potassium 4.2 mmol/L (3.5-5.1); Sodium Level 146 mmol/L (136-145)
[2023-02-19] MEDS: Lactated Ringers 1,000 ML 100 ML IV ×2 (07:06→15:59)
[2023-02-19 07:08] LABS: HEPATITIS B SURFACE AG Negative (Negative); Hep C Antibodies Non Reactive (Non Reactive); Hepatitis A IgM Antibody Negative (Negative); Hepatitis B Core AB IgM Negative (Negative)
--- NOTE | 2023-02-19 07:38 | PN.CC_ITS ---
Assessment & Plan Assessment/Plan (1) Acute UTI: (2) Septic shock due to urinary tract infection: (3) Apnea, sleep: QUALIFIERS: Sleep apnea type: unspecified type Qualified Code(s): G47.30 - Sleep apnea, unspecified (4) ROSELYN (acute kidney injury): PLAN: Plan RECOMMENDATIONS: 1. Place PICC line to facilitate pressor 2. Wean oxygen as tolerated 3. Continue BiPAP with sleep 4. Continue wound therapy 5. Transition from Zosyn to Merrem given a ESBL IMPRESSIONS: 1. Septic shock secondary to ESBL E. coli UTI Patient does have a UA suggestive of urinary tract infection. Given progression of hypotension following antibiotics, this would suggest a gram- negative etiology. Patient has been treated with Zosyn, but unfortunately this will not cover ESBL. Patient will be transitioned over to Merrem. Patient may decompensate with the change and require additional pressors. Will place PICC as previously discussed with the family 2. ROBBI with reported asthma Patient does have a baseline obstructive sleep apnea and reportedly is compliant with ROBBI therapy. Patient tolerated this well overnight. Patient is on Symbicort at home, but no pulmonary function tests are available for review. Budesonide therapeutic substitution likely appropriate. Cannot exclude the need for increased oxygen requirements overnight given fluid resuscitation. 3. Acute on chronic kidney disease stage III Clinical suspicion for prerenal etiology secondary to problem #1. Patient's baseline creatinine appears to be between 1.3 and 1.4. Continue with aggressive BP support. Patient does state that she doubts that she would be agreeable to dialysis at this time. Patient does not have any indication for renal replacement therapy, so we will hold off on nephrology consult for now. Patient did have significant hyperkalemia on presentation, but this may be secondary to acidosis. 4. Tinea cruris Patient does have significant breakdown. Patient has been initiated on nystatin powder. Could consider wound nurse evaluation moving forward. Patient does have some gram-positive coverage with Zosyn. 5. Hypernatremia/hyperchloremia Likely secondary to normal saline resuscitation. Patient will be transition to LR. Patient is significantly positive, so we will decrease IV rate to 100 cc/h. 6. Generalized weakness/morbid obesity/hypertension/hyperlipidemia/diabetes mellitus type 2/anemia/anxiety/advanced age/edema Complicates care, management, recovery and prognosis. Patient reportedly was recently placed on Lasix secondary to lower extremity edema. This, and antihypertensives, has been held secondary to problem #1 and #3. Would use benzodiazepines sparingly as patient is at risk for the development of delirium. Will attempt to discuss with patient and family later today about goals of therapy regarding central line and CODE STATUS. TIME: 40 minutes of critical care time spent addressing patient's septic shock, ROBBI, acute kidney injury, tinea cruris, diabetes, review of all data and collaboration with care team Subjective Subjective Patient did okay overnight. Respiratory status has remained relatively stable, but pressor requirements have gone up. Patient is significantly positive compared to yesterday. Patient did have a bowel movement yesterday. The floor just received a call that the patient is growing ESBL E. coli. Patient has had decreased urine output noted Objective Data Objective Data Vital Signs: Vital Signs Temp Pulse Resp BP Pulse Ox O2 Del Method O2 Flow Rate 36.4 C L 81 22 H 142/54 H 97 Bi-pap 2 02/19/23 00:00 02/19/23 07:08 02/19/23 07:08 02/19/23 07:08 02/19/23 07:08 02/19/23 04:00 02/19/23 06:30 Oxygen Flow Rate (L/min) 2 Oxygen Delivery Method Bi-pap Weight: 160.4 kg Body Mass Index (BMI) 53.7 Intake & Output: Intake and Output for Last 24 Hours 02/17/23 02/18/23 02/19/23 23:59 23:59 23:59 Intake Total 2050. / 2050. 7593.35 / 7598.05 1288.81 / 1288.81 Output Total 275 / 325 200 / 200 Balance 2050. / 2050.5 7318.35 / 7273.05 1088.81 / 1088.81 Lab / Micro Data Attestation: I reviewed the patient's lab results. 02/19/23 03:30 02/19/23 03:30 Labs: Laboratory Results - last 24 hr 02/17/23 18:33: Diff Path Review Reviewed 02/17/23 23:33: Hepatitis A IgM Ab Negative, Hep Bs Antigen Negative, Hep B Core IgM Ab Negative, Hepatitis C Ab (EIA) Non Reactive, Hep C Ab Comment Comment 02/19/23 03:30: WBC 14.8 H, RBC 3.64 L, Hgb 10.7 L, Hct 34.3 L, MCV 94.2, MCH 29.4, MCHC 31.2 L, RDW Std Deviation 50.5 H, RDW Coeff of Ruben 14.6, Plt Count 166, MPV 12.1 H, Immature Gran % (Auto) 0.800, Neut % (Auto) 82.7 H, Lymph % (Auto) 5.4 L, [place] % (Auto) 9.5, Eos % (Auto) 1.2, Baso % (Auto) 0.4, Absolute Neuts (auto) 12.2 H, Absolute Lymphs (auto) 0.80 L, Nucleated RBC % 0, Sodium 146 H, Potassium 4.2, Chloride 117 H, Carbon Dioxide 19.0 L, Anion Gap 10, BUN 68 H, Creatinine 4.03 H, Estim Creat Clear Calc 11.98, Est GFR (MDRD) Af Amer 14 L, Est GFR (MDRD) Non-Af 12 L, BUN/Creatinine Ratio 16.9, Glucose 121 H, Calcium 8.0 L Micro: Microbiology 02/17/23 19:05 Urine Catheter - Croft Urine Culture - Preliminary ESBL Escherichia coli Radiography Diagnostic Testing: Radiology Impression Liver Ultrasound 02/18/23 06:00 IMPRESSION: Mild hepatomegaly with mild heterogeneity of the liver from hepatic steatosis or other hepatocellular disease. Consider CT correlation. Cholecystectomy. Electronically Signed: Merlyn Bernal MD at 9:41 EST Reading Location ID and State: [address] [place] [address] Tel , Service support , Physical Exam Const alert, oriented x3 and no apparent distress Constitutional Narrative: Patient is morbidly obese. On BiPAP during my evaluation General Appearance: cooperative HEENT normocephalic, head/scalp atraumatic and hearing grossly normal bilaterally Eyes PERRL, EOMs intact bilaterally and conjunctivae normal Eyes Narrative: Slight scleral injection without icterus Neck no lymphadenopathy and supple Neck Narrative: Significant kyphosis Resp normal respiratory effort, no retractions, no use of accessory muscles and clear to auscultation bilaterally Cardio regular rate, regular rhythm, S1 normal heart sound, S2 normal heart sound, no murmurs, no rub and no gallops GI normal to inspection, nondistended, normoactive bowel sounds, soft to palpation, non-tender and non-distended GI Narrative: Significant abdominal adiposity Back/Spine Back/Spine Narrative: Significant kyphosis noted Extremity normal to inspection and full ROM General Extremity: Negative for clubbing or edema Skin Skin Narrative: Patient has severe tinea cruris. Venous stasis changes noted of bilateral lower extremities Neuro oriented x3, CN's II-XII intact bilaterally and moves all extremities Psych cooperative and affect normal Charges/Coding Procedures Hospitalists Procedures: [id number] Critical Care 1st Hr
[2023-02-19] MEDS: Folic Acid/Vitamin B Comp W-C 1 Capsule 1 CAP PO (08:14)
[2023-02-19] MEDS: Pantoprazole Sodium 40 MG Tablet PO (08:14)
[2023-02-19] MEDS: FLUoxetine 20 MG Capsule PO (08:14)
[2023-02-19] MEDS: Ascorbic Acid 500 MG Tablet 1000 MG PO ×2 (08:14→21:41)
[2023-02-19] MEDS: Zinc Sulfate 50 mg zinc (220 mg) ORAL capsule PO (08:14)
[2023-02-19] MEDS: Budesonide Respules 0.5 MG/2 ML AMPUL.NEB. INHALATION ×2 (08:18→19:03)
[2023-02-19] MEDS: Meropenem 1 GM in 0.9% Normal Saline (100mL MB+) 100 ML IV ×2 (08:29→21:41)
[2023-02-19] MEDS: Gabapentin 100 MG Capsule PO ×2 (08:29→21:41)
--- NOTE | 2023-02-19 09:21 | PN.HOSP_ITS ---
Subjective Subjective Had to be placed on Levophed overnight and increased to a max of 10 peripherally. Family did agree to a PICC line which will be done today Objective Data Objective Data Vital Signs: Vital Signs Temp Pulse Resp BP Pulse Ox O2 Del Method O2 Flow Rate 97.6 F L 100 29 H 136/73 H 91 Room Air 2 02/19/23 00:00 02/19/23 09:00 02/19/23 09:00 02/19/23 09:00 02/19/23 09:00 02/19/23 09:00 02/19/23 06:30 Oxygen Flow Rate (L/min) 2 Oxygen Delivery Method Room Air Weight: 353 lb 9.943 oz Body Mass Index (BMI) 53.7 Intake & Output: Intake and Output for Last 24 Hours 02/18/23 02/19/23 02/20/23 03:59 03:59 03:59 Intake Total 5101.5 / 5101.5 4763.85 / 4773.25 1223.40 / 1223.40 Output Total 325 / 375 150 / 150 Balance 5101.5 / 5101.5 4438.85 / 4398.25 1073.40 / 1073.40 Lab / Micro Data 02/19/23 03:30 02/19/23 03:30 Labs: Laboratory Results - last 24 hr 02/17/23 18:33: Diff Path Review Reviewed 02/17/23 23:33: Hepatitis A IgM Ab Negative, Hep Bs Antigen Negative, Hep B Core IgM Ab Negative, Hepatitis C Ab (EIA) Non Reactive, Hep C Ab Comment Comment 02/19/23 03:30: WBC 14.8 H, RBC 3.64 L, Hgb 10.7 L, Hct 34.3 L, MCV 94.2, MCH 29.4, MCHC 31.2 L, RDW Std Deviation 50.5 H, RDW Coeff of Ruben 14.6, Plt Count 166, MPV 12.1 H, Immature Gran % (Auto) 0.800, Neut % (Auto) 82.7 H, Lymph % (Auto) 5.4 L, [place] % (Auto) 9.5, Eos % (Auto) 1.2, Baso % (Auto) 0.4, Absolute Neuts (auto) 12.2 H, Absolute Lymphs (auto) 0.80 L, Nucleated RBC % 0, Sodium 146 H, Potassium 4.2, Chloride 117 H, Carbon Dioxide 19.0 L, Anion Gap 10, BUN 68 H, Creatinine 4.03 H, Estim Creat Clear Calc 11.98, Est GFR (MDRD) Af Amer 14 L, Est GFR (MDRD) Non-Af 12 L, BUN/Creatinine Ratio 16.9, Glucose 121 H, Calcium 8.0 L Micro: Microbiology 02/17/23 19:05 Urine Catheter - Croft Urine Culture - Preliminary ESBL Escherichia coli Radiography Diagnostic Testing: Radiology Impression Liver Ultrasound 02/18/23 06:00 IMPRESSION: Mild hepatomegaly with mild heterogeneity of the liver from hepatic steatosis or other hepatocellular disease. Consider CT correlation. Cholecystectomy. Electronically Signed: Merlyn Bernal MD at 9:41 EST Reading Location ID and State: [facility] / [place] Tel , Service support , Physical Exam Narrative General: Alert, Oriented x3, Cooperative, No apparent distress HEENT: Atraumatic, PERRLA, EOMI, Normocephalic Oral: Moist Mucosa Neck: Supple, No JVD Lungs: Diminished, Normal air movement, No rhonchi, No wheeze, No rales Cardiovascular: Regular rate, Regular Rhythm, Normal S1, Normal S2, No murmurs Abdomen: Soft, Non Tender, Non-Distended, No Hepato-splenomegaly Extremities: No edema, Capillary Refill Less than 3 Seconds Skin: Fungal rash in her groin Musculoskeletal: No Tenderness to Palpation of Joints or Extremities Neurological: Moves all extremities, no focal deficits, Sensory exam intact to light touch and pain Psych/Mental Status: Normal Affect, Appropriate Assessment & Plan Assessment/Plan (1) Severe sepsis: (2) Acute UTI: (3) ROSELYN (acute kidney injury): PLAN: Plan 1. Septic shock secondary to ESBL E. coli UTI with an ROSELYN/generalized weakness and debility/elevated LFTs ? Continue with IV antibiotics will transition to meropenem for ESBL E. coli ? Will obtain a PICC line today as her pressor requirements are maxed peripherally ? Continue with IV fluids, will monitor renal function, appreciate nephrology's assistance ? Appreciate ocular care technologist assistance ? Elevated LFTs can be secondary to her sepsis, hepatitis panel is pending ? PT/OT 2. HTN/HLD/paroxysmal A-fib ? We will hold her blood pressure medication secondary to her hypotension and septic shock ? We will hold her statin secondary to her LFTs ? Will monitor for A-fib and make any adjustments necessary 3. DM2 ? Accu-Cheks ACHS ? Sliding scale insulin ? Will monitor and make adjustments as necessary ? A1c of 5.7 4. COPD/ROBBI ? Not in exacerbation ? Continue with her home BiPAP ? Continue with as needed inhalers 5. GERD ? Stable ? Continue with PPI 6. Anxiety/depression ? Stable ? Continue with her home medications DVT: Heparin Charges/Coding Visit Charges Inpatient E&M: 20518 Subs Hosp L2
--- NOTE | 2023-02-19 10:22 | PN.CC_ITS ---
Objective Data Objective Data Vital Signs: Vital Signs Temp Pulse Resp BP Pulse Ox O2 Del Method O2 Flow Rate 36.4 C L 94 25 H 97/38 L 94 Room Air 2 02/19/23 00:00 02/19/23 10:00 02/19/23 10:00 02/19/23 10:15 02/19/23 10:00 02/19/23 10:00 02/19/23 06:30 Oxygen Flow Rate (L/min) 2 Oxygen Delivery Method Room Air Weight: 160.4 kg Body Mass Index (BMI) 53.7 Intake & Output: Intake and Output for Last 24 Hours 02/17/23 02/18/23 02/19/23 23:59 23:59 23:59 Intake Total 2050.5 / 2050.5 7593.35 / 7598.05 1448.60 / 1448.60 Output Total 275 / 325 400 / 400 Balance 1.5 / 1.5 7318.35 / 7273.05 1048.60 / 1048.60 Lab / Micro Data Attestation: I reviewed the patient's lab results. 02/19/23 03:30 02/19/23 03:30 Labs: Laboratory Results - last 24 hr 02/17/23 18:33: Diff Path Review Reviewed 02/17/23 23:33: Hepatitis A IgM Ab Negative, Hep Bs Antigen Negative, Hep B Core IgM Ab Negative, Hepatitis C Ab (EIA) Non Reactive, Hep C Ab Comment Comment 02/19/23 03:30: WBC 14.8 H, RBC 3.64 L, Hgb 10.7 L, Hct 34.3 L, MCV 94.2, MCH 29.4, MCHC 31.2 L, RDW Std Deviation 50.5 H, RDW Coeff of Ruben 14.6, Plt Count 166, MPV 12.1 H, Immature Gran % (Auto) 0.800, Neut % (Auto) 82.7 H, Lymph % (Auto) 5.4 L, [place] % (Auto) 9.5, Eos % (Auto) 1.2, Baso % (Auto) 0.4, Absolute Neuts (auto) 12.2 H, Absolute Lymphs (auto) 0.80 L, Nucleated RBC % 0, Sodium 146 H, Potassium 4.2, Chloride 117 H, Carbon Dioxide 19.0 L, Anion Gap 10, BUN 68 H, Creatinine 4.03 H, Estim Creat Clear Calc 11.98, Est GFR (MDRD) Af Amer 14 L, Est GFR (MDRD) Non-Af 12 L, BUN/Creatinine Ratio 16.9, Glucose 121 H, Calcium 8.0 L Micro: Microbiology 02/17/23 19:05 Urine Catheter - Croft Urine Culture - Preliminary ESBL Escherichia coli
--- NOTE | 2023-02-19 12:29 | PCM.PN.REN ---
Subjective Subjective No new complaints today. Urine is growing ESBL. Changed to meropenem today. Creatinine slightly higher. Urine output borderline. Objective Data Objective Data Vital Signs: Vital Signs Temp Pulse Resp BP Pulse Ox O2 Del Method O2 Flow Rate 97.6 F L 94 25 H 97/38 L 94 Room Air 2 02/19/23 00:00 02/19/23 10:00 02/19/23 10:00 02/19/23 10:15 02/19/23 10:40 02/19/23 11:43 02/19/23 06:30 Oxygen Flow Rate (L/min) 2 Oxygen Delivery Method Room Air Weight: 160.4 kg Body Mass Index (BMI) 53.7 Intake & Output: Intake and Output for Last 24 Hours 02/17/23 02/18/23 02/19/23 23:59 23:59 23:59 Intake Total 2050.5 / 2050.5 7593.35 / 7598.05 1448.60 / 1448.60 Output Total 275 / 325 400 / 400 Balance 2051.5 / 2051.5 7318.35 / 7273.05 1048.60 / 1048.60 Lab / Micro Data 02/19/23 03:30 02/19/23 03:30 Labs: Laboratory Results - last 24 hr 02/17/23 18:33: Diff Path Review Reviewed 02/17/23 23:33: Hepatitis A IgM Ab Negative, Hep Bs Antigen Negative, Hep B Core IgM Ab Negative, Hepatitis C Ab (EIA) Non Reactive, Hep C Ab Comment Comment 02/19/23 03:30: WBC 14.8 H, RBC 3.64 L, Hgb 10.7 L, Hct 34.3 L, MCV 94.2, MCH 29.4, MCHC 31.2 L, RDW Std Deviation 50.5 H, RDW Coeff of Ruben 14.6, Plt Count 166, MPV 12.1 H, Immature Gran % (Auto) 0.800, Neut % (Auto) 82.7 H, Lymph % (Auto) 5.4 L, [place] % (Auto) 9.5, Eos % (Auto) 1.2, Baso % (Auto) 0.4, Absolute Neuts (auto) 12.2 H, Absolute Lymphs (auto) 0.80 L, Nucleated RBC % 0, Sodium 146 H, Potassium 4.2, Chloride 117 H, Carbon Dioxide 19.0 L, Anion Gap 10, BUN 68 H, Creatinine 4.03 H, Estim Creat Clear Calc 11.98, Est GFR (MDRD) Af Amer 14 L, Est GFR (MDRD) Non-Af 12 L, BUN/Creatinine Ratio 16.9, Glucose 121 H, Calcium 8.0 L Micro: Microbiology 02/17/23 19:05 Urine Catheter - [place] Urine Culture - Preliminary ESBL Escherichia coli Physical Exam Narrative Alert awake oriented x 3 no obvious distress no pallor no icterus no JVD s1s2 no murmurs lungs clear abdomen soft no organomegaly no edema no cyanosis [place] + Assessment & Plan Assessment/Plan (1) ROSELYN (acute kidney injury): PLAN: Acute renal failure. Presumably due to severe sepsis. She has known history of CKD stage IIIa, baseline creatinine around 1.3-1.5. Urine analysis consistent with UTI, on broad-spectrum coverage. Changed to meropenem today No acute indications for renal replacement therapy.
--- NOTE | 2023-02-19 15:07 | CASEMGMT ---
Received message from ICU nurse to call pt PCP . TC to her and she made RN CM aware that pt is living in a hoarding situation with her dtr who is also w/c bound. She feels this stemmed from the pt passing approx 15-20 years ago. PCP used to do home visits with pt then was only allowed to go to the enclosed porch, then pt would be seen in the car which also appeared to be of a hoarding situation. states she talks openly to pt about this and the risks of infection, santitation, effects on health. She states that the pt dtr is aware that the EMT's had concerns when going to pt home for this admission. She reports pt is w/c bound, sleeps in a chair with legs dependent and urinates in a depends. Pt doesn't follow up at times. She has been working with pt dtr with a goal of showing significant improvement in cleaning the back closed in porch including ripping up sub floor. She states dtr is open to this but will need help. asked if SW could assist in finding companies who can help get the trash out. She states finances are not an issue for pt. She also states she has hired a [facility] SW as a healthcare naviagor for her office by the name of Hilaria Sotelo who could continue working on this situation after it has been started here at the hospital. states pt would benefit from SNF s/t with hopes of dtr working on cleaning up home for pt to come back to. Dr. Mireles would like the SW to call her. Updated BRETT Alasila and provided her phone number.
--- NOTE | 2023-02-19 15:16 | PCM.OP.PRO ---
Procedure Report Date of Procedure: 02/19/23 Assessment & Plan Assessment/Plan (1) Septic shock due to urinary tract infection: Procedures Radiology Radiology Access Procedures: PICC Procedure Time Out Time Out Informed consent given: Yes Consent signed: Yes Time out checklist: patient, procedure, site marked/identified, positioning of patient, supplies available and allergies confirmed Time out verified: Yes Time out date: 02/19/23 Time out time: 13:42 PICC Line Consent Screening tool completed:: Yes Consent obtained:: Yes Consent given by (patient or responsible alliance party):: daughter Line successful (if no, document why in comments):: Yes Insertion Reason for Insertion: Poor Venous Access Date of Insertion: 02/19/23 Ok to use: Yes Type of PICC inserted: Dual Power PICC PICC Lot #: [id number] PICC Reference #: [id number] Microintroducer Used: Yes (in kit) Ultrasound/Equipment Used: Probe Cover Kit Trimmed Length (cm): 55 Insertion Length (cm): 54 Exposed Length (cm): 1 Tip Placement: Caval Atrial Junction Placement Confirmation: 3CG Insertion Vein: Left Basilic Insertion Attempts: 1 Local Anesthesia Used: Lidocaine 1% (in kit) Dressing Applied: Statlock and Tegaderm CHG Arm Measurement above site (in cm): 36 Patient Tolerated Procedure: Well Threading Difficulties: No Comments Comment: Patient identity was verified with two patient identifiers. Informed consent was obtained and time-out was completed. Hands were sanitized. The patient was positioned supine with left arm at 90 degrees. The patient's upper arm vasculature was assessed using ultrasound, and the left basilic vein was externally marked. An external measurement was obtained of 55 cm. External leads were applied to the patient's right upper chest and laterally and inferior of the umbilicus on the mid axillary line. Cap, mask, and prep gloves were donned. The underdrape was placed under the patient's arm. The site was prepped with chlorhexidine, and tourniquet was loosely applied. Prep gloves were discarded, and hands were sanitized. The sterile kit was opened with additional supplies dropped in. Sterile gown and gloves were donned, and the patient was draped. The sterile kit was assembled with all needle, introducer, connector, and catheter flushed with sterile normal saline. The marked site of insertion was anesthetized with 1% lidocaine. Patient tolerated well. The left basilic vein was then accessed using ultrasound guidance and guidewire was inserted to safety doroteo. The tourniquet was released. The access needle was removed while securing the guidewire in place. The site was again anesthetized with 1% lidocaine, prior to insertion of introducer sheath and dilator. Patient tolerated well. The catheter was trimmed to a length of 55 cm. Using 3C guidance, the catheter was then inserted through the introducer sheath, slowly. There was no resistance on insertion. Maximal p-wave, without deflection, was obtained at an insertion length of 54 cm, leaving 1 cm external. The introducer sheath was retracted and peeled away, incrementally, while keeping the catheter secured. The stylet was removed. A flushed needleless connector was attached to each lumen. Blood return was verified and each lumen was flushed with sterile normal saline in a pulsatile fashion. Total sterile flushes used for the insertion was 6 10 ml syringes. Finally, the insertion site was cleaned with chlorhexidine, and the catheter was secured using a StatLock. The site was covered with a Tegaderm CHG Dressing. Baseline arm circumference was obtained at the insertion site and measured 36 cm. The patient was provided with education on PICC line care and verbalized understanding of infection prevention, heavy lifting restriction, maintaining mobility, and watching for any signs of infection.
--- NOTE | 2023-02-19 15:38 | WOUNDNOTE ---
wound photo: left abdominal fold
--- NOTE | 2023-02-19 15:40 | WOUNDNOTE ---
wound photo: midline under pannus
[2023-02-19] MEDS: Albuterol 2.5 MG/3 ML VIAL.NEB. INHALATION (19:03)
[2023-02-20] VITALS (49 sets, daily range): BP systolic 86–149; BP diastolic 30–107; PULSE 76–148; RESP 18–29; TEMP 36.4–37.2; O2SAT 85–98; BMI 55.3
[2023-02-20] MEDS: Acetaminophen 325 MG Tablet 650 MG PO (00:14)
[2023-02-20] MEDS: Lactated Ringers 1,000 ML 100 ML IV (01:42)
[2023-02-20 05:05] LABS: Anion Gap 7 (5-15); BUN 66 mg/dL (7-18); BUN/Creat Ratio 15.5 RATIO (10-20); Calcium,Total 8.3 mg/dL (8.5-10.1); Chloride 119 mmol/L (98-107); Creatinine, Serum 4.26 mg/dL (0.55-1.02); EST Glomerular Filtration Rate 11 mL/min (>60); Est Glom Filt Rate - Afr Amer 13 mL/min (>60); Estimated Creatinine Clearance 11.33 ml/min; Glucose 124 mg/dL (74-106); Potassium 4.3 mmol/L (3.5-5.1); Sodium Level 147 mmol/L (136-145)
[2023-02-20 05:31] LABS: Absolute Lymphocyte Count 0.89 X10^3/uL (0.83-4.51); Absolute Neutrophil Count 10.1 X10^3/uL (2.0-7.7); Basophil# 0.07 X10^3/uL; Basophil% 0.5 % (0-1); Eosinophils% 3.9 % (0-5); Hematocrit 33.2 % (37-47); Hemoglobin 10.2 g/dL (12.0-15.0); Lymphocyte # 0.89 X10^3/ul (0.83-4.51); Lymphocyte % 6.9 % (19-41); Mean Corp Hgb Conc 30.7 g/dL (32-36); Mean Corpuscular Hgb 29.2 pg (27.0-32.0); Mean Corpuscular Volume 95.1 fL (81-99); Mean Platelet Vol. 12.2 fl (6.2-12.0); Monocyte# 1.17 X10^3/uL; NRBC Flagged by Analyzer 0 % (0-5); Neutrophil # 10.14 X10^3/uL (2.7-7.7); Neutrophil % 78.3 % (47-70); Platelet Count 166 K/mm3 (150-450); RBC Distribution Width CV 15.1 % (11.6-14.6); Red Blood Count 3.49 M/mm3 (4.2-5.4)
[2023-02-20] MEDS: Norepinephrine 8 MG in 0.9% Normal Saline (250mL Bag) 242 ML 28.1000000000000014 MG CONT INF (06:53)
[2023-02-20] MEDS: Albuterol 2.5 MG/3 ML VIAL.NEB. INHALATION (07:38)
[2023-02-20] MEDS: Budesonide Respules 0.5 MG/2 ML AMPUL.NEB. INHALATION ×2 (07:41→20:52)
--- NOTE | 2023-02-20 09:20 | PN.HOSP_ITS ---
Reason for Visit Reason for Visit: Diagnoses Sepsis, unspecified organism (02/17/23) Sleep apnea, unspecified (02/17/23) Acute kidney failure, unspecified (02/17/23) Urinary tract infection, site not specified (02/17/23) Severe sepsis without septic shock (02/17/23) Severe sepsis with septic shock (02/17/23) Subjective Subjective Patient is a 77-year-old lady with multiple comorbidities admitted with progressive generalized weakness and assessment of septic shock secondary to acute cystitis made admitted to the intensive care unit where patient has since been managed Objective Data Objective Data Vital Signs: Vital Signs Temp Pulse Resp BP Pulse Ox O2 Del Method O2 Flow Rate 97.8 F 87 21 H 135/50 H 96 Nasal Cannula 2 02/20/23 03:00 02/20/23 07:38 02/20/23 07:38 02/20/23 07:00 02/20/23 07:38 02/20/23 07:38 02/20/23 07:38 FiO2 29 02/20/23 07:38 Oxygen Flow Rate (L/min) 2 Oxygen Delivery Method Nasal Cannula Weight: 164.9 kg Body Mass Index (BMI) 55.3 Intake & Output: Intake and Output for Last 24 Hours 02/18/23 02/19/23 02/20/23 23:59 23:59 23:59 Intake Total 7593.35 / 7598.05 2875.43 / 2997.33 1292.00 / 1292.00 Output Total 275 / 325 700 / 700 200 / 200 Balance 7318.35 / 7273.05 2175.43 / 2297.33 1092.00 / 1092.00 Lab / Micro Data 02/20/23 04:40 02/20/23 04:40 Labs: Laboratory Results - last 24 hr 02/20/23 04:40: WBC 13.0 H, RBC 3.49 L, Hgb 10.2 L, Hct 33.2 L, MCV 95.1, MCH 29.2, MCHC 30.7 L, RDW Std Deviation 52.0 H, RDW Coeff of Ruben 15.1 H, Plt Count 166, MPV 12.2 H, Immature Gran % (Auto) 1.400 H, Neut % (Auto) 78.3 H, Lymph % (Auto) 6.9 L, [place] % (Auto) 9.0, Eos % (Auto) 3.9, Baso % (Auto) 0.5, Absolute Neuts (auto) 10.1 H, Absolute Lymphs (auto) 0.89, Nucleated RBC % 0, Sodium 147 H, Potassium 4.3, Chloride 119 H, Carbon Dioxide 21.0, Anion Gap 7, BUN 66 H, Creatinine 4.26 H, Estim Creat Clear Calc 11.33, Est GFR (MDRD) Af Amer 13 L, Est GFR (MDRD) Non-Af 11 L, BUN/Creatinine Ratio 15.5, Glucose 124 H, Calcium 8.3 L Micro: Microbiology 02/17/23 19:05 Urine Catheter - Croft Urine Culture - Final ESBL Escherichia coli Physical Exam Narrative GENERAL: cooperative HEENT: Atraumatic; normocephalic EYES; Anicteric, Normal Conjunctiva NECK; supple, normal thyroid, RESPIRATORY: Diminished to auscultation CARDIOVASCULAR: Regular S1 S2, GI: soft, normoactive bowel sounds, : No Renal angle tenderness; EXTREMITIES: edema, no clubbing, MUSCULOSKELETAL: no muscle wasting NEURO: Awake; no lateralizing signs. SKIN: No Rash PSYCH; Flat affect Assessment & Plan Assessment/Plan (1) Severe sepsis: (2) Acute UTI: (3) ROSELYN (acute kidney injury): PLAN: Plan Patient is a 77-year-old lady with multiple comorbidities admitted with progress paul generalized weakness and assessment of septic shock secondary to acute cystitis made admitted to the intensive care unit where patient has since been managed 1. Septic shock ? Secondary to ESBL E. coli. Admitted to the intensive care unit patient managed with broad-spectrum antibiotic therapy with meropenem as well as pressors with norepinephrine. 2. Acute kidney injury -Patient has a baseline creatinine between 1.1 and 1.4, creatinine on admission was 3.73. Patient kidney function continues to worsen up to 4.26. Consult placed to nephrology 3. Class III obesity with BMI of 55.3 ? Complicating care, weight loss advised 4. Hyperkalemia ? Patient potassium supplement discontinued 5. Dyslipidemia -Patient is on statin therapy, continued at home dose 6. Depression with anxiety ? Patient is on fluoxetine as well as lorazepam as needed 7. GERD ? Patient is on PPI did continue 8. Obstructive sleep apnea ? PAP therapy at night 9. Hypernatremia ? Secondary to aggressive IV fluid resuscitation with saline this has been transitioned to Ringer's lactate with subsequent monitoring of electrolytes ordered 10. Diabetes mellitus type 2 ? Currently managed with diet please on Accu-Cheks before meals and at bedtime with sliding scale coverage 10. Paroxysmal A-fib ? Rate controlled on metoprolol 11. History of Spinal osteomyelitis underwent T12 an L1 corpectomy at the [facility] in 2014 12. Anemia - Secondary to chronic disorder monitoring H&H and transfuse if patient becomes symptomatic or hemoglobin falls below 7 13. DVT prophylaxis ? SC heparin Time spent in the patient's overall evaluation,decision-making process, review of diagnostic data, adjustment of management, discussion with other providers, nursing nursing and ancillary staff involved in patient's care documentation, 55 Minutes Charges/Coding Visit Charges Inpatient E&M: 18339 [facility] Hosp L3
--- NOTE | 2023-02-20 09:24 | PCM.PN.REN ---
Subjective Subjective No new complaints. Urine output is on the lower side still. Creatinine slightly higher. Significantly net positive. Lincoln catheter indwelling. She is currently on Levophed at 15 mcgs. Objective Data Objective Data Vital Signs: Vital Signs Temp Pulse Resp BP Pulse Ox O2 Del Method O2 Flow Rate 97.8 F 87 21 H 135/50 H 96 Nasal Cannula 2 02/20/23 03:00 02/20/23 07:38 02/20/23 07:38 02/20/23 07:00 02/20/23 07:38 02/20/23 07:38 02/20/23 07:38 FiO2 29 02/20/23 07:38 Oxygen Flow Rate (L/min) 2 Oxygen Delivery Method Nasal Cannula Weight: 164.9 kg Body Mass Index (BMI) 55.3 Intake & Output: Intake and Output for Last 24 Hours 02/18/23 02/19/23 02/20/23 23:59 23:59 23:59 Intake Total 7593.35 / 7598.05 2875.43 / 2997.33 1292.00 / 1292.00 Output Total 275 / 325 700 / 700 200 / 200 Balance 7318.35 / 7273.05 2175.43 / 2297.33 1092.00 / 1092.00 Lab / Micro Data 02/20/23 04:40 02/20/23 04:40 Labs: Laboratory Results - last 24 hr 02/20/23 04:40: WBC 13.0 H, RBC 3.49 L, Hgb 10.2 L, Hct 33.2 L, MCV 95.1, MCH 29.2, MCHC 30.7 L, RDW Std Deviation 52.0 H, RDW Coeff of Rubne 15.1 H, Plt Count 166, MPV 12.2 H, Immature Gran % (Auto) 1.400 H, Neut % (Auto) 78.3 H, Lymph % (Auto) 6.9 L, [place] % (Auto) 9.0, Eos % (Auto) 3.9, Baso % (Auto) 0.5, Absolute Neuts (auto) 10.1 H, Absolute Lymphs (auto) 0.89, Nucleated RBC % 0, Sodium 147 H, Potassium 4.3, Chloride 119 H, Carbon Dioxide 21.0, Anion Gap 7, BUN 66 H, Creatinine 4.26 H, Estim Creat Clear Calc 11.33, Est GFR (MDRD) Af Amer 13 L, Est GFR (MDRD) Non-Af 11 L, BUN/Creatinine Ratio 15.5, Glucose 124 H, Calcium 8.3 L Micro: Microbiology 02/17/23 19:05 Urine Catheter - Lincoln Urine Culture - Final ESBL Escherichia coli Physical Exam Narrative Alert awake oriented x 3 no obvious distress no pallor no icterus no JVD s1s2 no murmurs lungs clear abdomen soft no organomegaly no edema no cyanosis lincoln + Assessment & Plan Assessment/Plan (1) ROSELYN (acute kidney injury): PLAN: Acute renal failure. Presumably due to severe sepsis. She has known history of CKD stage IIIa, baseline creatinine around 1.3-1.5. Urine analysis consistent with UTI, on broad-spectrum coverage. Changed to meropenem No acute indications for renal replacement therapy. Overall significantly net positive. Can stop IV fluids. Consider CT abdomen without contrast if she is able to fit on the CT scan
[2023-02-20] MEDS: Meropenem 1 GM in 0.9% Normal Saline (100mL MB+) 100 ML IV ×2 (10:28→21:59)
[2023-02-20] MEDS: Zinc Sulfate 50 mg zinc (220 mg) ORAL capsule PO (10:30)
[2023-02-20] MEDS: Pantoprazole Sodium 40 MG Tablet PO (10:30)
[2023-02-20] MEDS: Folic Acid/Vitamin B Comp W-C 1 Capsule 1 CAP PO (10:30)
[2023-02-20] MEDS: Gabapentin 100 MG Capsule PO ×2 (10:32→21:59)
[2023-02-20] MEDS: FLUoxetine 20 MG Capsule PO (10:32)
--- NOTE | 2023-02-20 11:00 | CASEMGMT ---
STUART BRAVO NOTE: STUART BRAVO spoke w/pt and dtr @ bedside after ICU multi-disciplinary rounds. Pt states she was surprised at how weak she was when getting up w/therapy yesterday and she feels she would benefit from SNF before returning home. She and dtr made aware a SNF list will be provided and they can review and asked to provide top 3 preferences. April, stock crane operator, made aware and will provide list to pt. Gee DE LA ROSA RN, CM
[2023-02-20] MEDS: Midodrine HCl 5 MG Tablet PO ×2 (11:52→16:37)
--- NOTE | 2023-02-20 13:58 | CASEMGMT ---
Social Work SW received update from RNCM who spoke with pt's PCP regarding home situation. Phone call placed to Adult Protective Services who states an anonymous report was made for this pt in June 2022 due to hoarding. APS visited the home and from the outside of the home looking in, it was visibly noticeable that there was a serious hoarding situation. APS worker was unable to enter the home due to hoarding and pt's dgt blocking the entrance. APS worker was not allowed in the home and pt and dgt denied need for assistance. APS did not follow up further. SW inquired about resources for hoarding and APS worker states APS does not have any resources for this problem. SW received phone call from Hilaria Sotelo ([phone]) at Dr. Mireles's office. Case discussed and above information provided to Hilaria. BRETT provided Hilaria with name and contact information for [employer] who does specialize in Hoarding cleanup. BRETT collaborated with Hilaria regarding home situation. BRETT updated Hilaria that pt is agreeable to short term SNF placement for rehab and that pt and dgt did not disclose home situation to RNCM during assessment. BRETT also informed Hilaria that APS referral had been made previously and hoarding issues were not addressed. Hilaria appreciative of information regarding cleaning service and that pt has not disclosed home situation to hospital workers. Hilaria stating she will followup with the pt's dgt at this time to discuss hoarding situation and cleanup and denies need for hospital SW to address this issue. BRETT updated Hilaria that Dr. Mireles had requested a call back from this BRETT. Hilaria states she will speak with Dr. Mireles regarding this conversation and denies need for SW to call Dr. Mireles back at this time. [facility] health care legal assistant delivered SNF list to pt for review. SW will follow up to get pt choices and answer questions regarding SNF placement. SACHA Colby
--- NOTE | 2023-02-20 14:06 | CASEMGMT ---
Discharge Planning A list of?SNF providers including quality and resource use data and consistent with the patient's preferred geographic region, medical needs, and insurance network were printed and provided from the [employer] Guide. April Bullock, Discharge Planning Asst.
--- NOTE | 2023-02-20 16:05 | CASEMGMT ---
Social Work SW met with pt and dgt and introduced self and role of SW. Pt confirms that she will need SNF placement at time of dc for short term rehab but has not had time to review list and make choices. SW will followup with pt in the morning. Pt agreeable to have SNF choices at that time. SACHA Gray
--- NOTE | 2023-02-20 16:08 | PN.CC_ITS ---
Assessment & Plan Assessment/Plan (1) Acute UTI: (2) Septic shock due to urinary tract infection: (3) Apnea, sleep: QUALIFIERS: Sleep apnea type: unspecified type Qualified Code(s): G47.30 - Sleep apnea, unspecified (4) ROSELYN (acute kidney injury): PLAN: Plan RECOMMENDATIONS: 1. Remains on Levophed she was on 15 mics this morning however she was able to wean down not completely off. Midodrine was ordered. 2. Wean oxygen as tolerated. Daughter concerned about pneumonia. Will obtain chest x-ray 3. Continue BiPAP with sleep 4. Continue wound therapy 5. Cont Merrem given a ESBL 6. DC LR as discussed w/ nephro IMPRESSIONS: 1. Septic shock secondary to ESBL E. coli UTI Patient does have a UA suggestive of urinary tract infection. Given progression of hypotension following antibiotics, this would suggest a gram-negative etiology. Patient has been treated with Zosyn, but unfortunately this will not cover ESBL. Patient will be transitioned over to Merrem. Patient may decompensate with the change and require additional pressors. Will place PICC as previously discussed with the family 2. ROBBI with reported asthma Patient does have a baseline obstructive sleep apnea and reportedly is compliant with ROBBI therapy. Patient tolerated this well overnight. Patient is on Symbicort at home, but no pulmonary function tests are available for review. Budesonide therapeutic substitution likely appropriate. Cannot exclude the need for increased oxygen requirements overnight given fluid resuscitation. 3. Acute on chronic kidney disease stage III Clinical suspicion for prerenal etiology secondary to problem #1. Patient's baseline creatinine appears to be between 1.3 and 1.4. Continue with aggressive BP support. Patient does state that she doubts that she would be agreeable to dialysis at this time. Patient does not have any indication for renal replacement therapy, so we will hold off on nephrology consult for now. Patient did have significant hyperkalemia on presentation, but this may be secondary to acidosis. 4. Tinea cruris Patient does have significant breakdown. Patient has been initiated on nystatin powder. Could consider wound nurse evaluation moving forward. Patient does have some gram-positive coverage with Zosyn. 5. Hypernatremia/hyperchloremia Likely secondary to normal saline resuscitation. Patient will be transition to LR. Patient is significantly positive, so we will decrease IV rate to 100 cc/h. 6. Generalized weakness/morbid obesity/hypertension/hyperlipidemia/diabetes mellitus type 2/anemia/anxiety/advanced age/edema Complicates care, management, recovery and prognosis. Patient reportedly was recently placed on Lasix secondary to lower extremity edema. This, and antihypertensives, has been held secondary to problem #1 and #3. Would use benzodiazepines sparingly as patient is at risk for the development of delirium. Will attempt to discuss with patient and family later today about goals of therapy regarding central line and CODE STATUS. TIME: 40 minutes of critical care time spent addressing patient's septic shock, ROBBI, acute kidney injury, tinea cruris, diabetes, review of all data and collaboration with care team Subjective Subjective Patient appears in good spirits this morning. Her daughter at bedside. Both were updated about the most recent labs. Objective Data Objective Data Vital Signs: Vital Signs Temp Pulse Resp BP Pulse Ox O2 Del Method O2 Flow Rate 36.4 C L 80 26 H 113/46 L 85 Bi-pap 4 02/20/23 12:00 02/20/23 14:45 02/20/23 14:45 02/20/23 14:45 02/20/23 15:01 02/20/23 14:45 02/20/23 14:45 FiO2 29 02/20/23 07:38 Oxygen Flow Rate (L/min) 4 Oxygen Delivery Method Bi-pap Weight: 164.9 kg Body Mass Index (BMI) 55.3 Intake & Output: Intake and Output for Last 24 Hours 02/18/23 02/19/23 02/20/23 23:59 23:59 23:59 Intake Total 7593.35 / 7598.05 2875.43 / 2997.33 2268.38 / 2268.38 Output Total 275 / 325 700 / 700 200 / 200 Balance 7318.35 / 7273.05 2175.43 / 2297.33 2068.38 / 2068.38 Lab / Micro Data 02/20/23 04:40 02/20/23 04:40 Labs: Laboratory Results - last 24 hr 02/20/23 04:40: WBC 13.0 H, RBC 3.49 L, Hgb 10.2 L, Hct 33.2 L, MCV 95.1, MCH 29.2, MCHC 30.7 L, RDW Std Deviation 52.0 H, RDW Coeff of Ruben 15.1 H, Plt Count 166, MPV 12.2 H, Immature Gran % (Auto) 1.400 H, Neut % (Auto) 78.3 H, Lymph % (Auto) 6.9 L, [place] % (Auto) 9.0, Eos % (Auto) 3.9, Baso % (Auto) 0.5, Absolute Neuts (auto) 10.1 H, Absolute Lymphs (auto) 0.89, Nucleated RBC % 0, Sodium 147 H, Potassium 4.3, Chloride 119 H, Carbon Dioxide 21.0, Anion Gap 7, BUN 66 H, Creatinine 4.26 H, Estim Creat Clear Calc 11.33, Est GFR (MDRD) Af Amer 13 L, Est GFR (MDRD) Non-Af 11 L, BUN/Creatinine Ratio 15.5, Glucose 124 H, Calcium 8.3 L Micro: Microbiology 02/17/23 19:35 Blood Culture (Wb) - Left Hand Blood Culture - Preliminary No growth in 48 hours. 02/17/23 19:35 Blood Culture (Wb) - Anticubital Left Blood Culture - Preliminary No growth in 48 hours. 02/17/23 19:05 Urine Catheter - Croft Urine Culture - Final ESBL Escherichia coli Physical Exam Const alert, oriented x3 and no apparent distress Constitutional Narrative: Patient is morbidly obese. On BiPAP during my evaluation General Appearance: cooperative HEENT normocephalic, head/scalp atraumatic and hearing grossly normal bilaterally Eyes PERRL, EOMs intact bilaterally and conjunctivae normal Eyes Narrative: Slight scleral injection without icterus Neck no lymphadenopathy and supple Neck Narrative: Significant kyphosis Resp normal respiratory effort, no retractions, no use of accessory muscles and clear to auscultation bilaterally Cardio regular rate, regular rhythm, S1 normal heart sound, S2 normal heart sound, no murmurs, no rub and no gallops GI normal to inspection, nondistended, normoactive bowel sounds, soft to palpation, non-tender and non-distended GI Narrative: Significant abdominal adiposity Back/Spine Back/Spine Narrative: Significant kyphosis noted Extremity normal to inspection and full ROM General Extremity: Negative for clubbing or edema Skin Skin Narrative: Patient has severe tinea cruris. Venous stasis changes noted of bilateral lower extremities Neuro oriented x3, CN's II-XII intact bilaterally and moves all extremities Psych cooperative and affect normal Charges/Coding Procedures Hospitalists Procedures: [id number] Critical Care 1st Hr
[2023-02-20] MEDS: Ascorbic Acid 500 MG Tablet 1000 MG PO (16:37)
[2023-02-20] MEDS: Metoprolol Tartrate 25 MG Tablet 12.5 MG PO (18:03)
[2023-02-20] MEDS: Amiodarone 150 MG in Dextrose 5%-Water (100mL Bag) 100 ML 600 MG IV BOLUS (19:17)
[2023-02-20] MEDS: HEPARIN/D5w 25,000 UNITS 25,000 UNITS/250 ML IV.SOLN. 10 UNITS CONT INF (19:40)
[2023-02-20] MEDS: Amiodarone 360 MG in Dextrose 5% Viaflo Bag 192.8 ML 33.2999999999999972 MG CONT INF (20:08)
[2023-02-21] VITALS (42 sets, daily range): BP systolic 90–148; BP diastolic 32–86; PULSE 59–109; RESP 17–27; TEMP 36.1–36.6; O2SAT 88–98; BMI 55.5
[2023-02-21] MEDS: Amiodarone 360 MG in Dextrose 5% Viaflo Bag 192.8 ML 16.6999999999999993 MG CONT INF ×2 (02:00→14:48)
[2023-02-21] MEDS: 0.9% Saline Lock 10 ML Syringe IV ×3 (02:00→16:45)
[2023-02-21] MEDS: Norepinephrine 8 MG in 0.9% Normal Saline (250mL Bag) 242 ML 9.40000000000000036 MG CONT INF (02:02)
[2023-02-21 02:12] LABS: Partial Thromboplast Time 61.9 Seconds (24.1-36.2)
--- NOTE | 2023-02-21 04:40 | RAD_ITS ---
INDICATION: Shortness of breath EXAMINATION/TECHNIQUE: X-RAY - XR Chest 1 View AP portable. 4:36 AM COMPARISON: 02/25/2020 FINDINGS: LINES/DEVICES: PICC from left brachial approach tip in the region of the SVC/right atrial junction. LUNGS: Small bilateral pleural effusions greater on the right. Mild opacities at the lung bases. No consolidation. No pneumothorax. MEDIASTINUM: Aorta is tortuous and atherosclerotic. CARDIAC SILHOUETTE: Not enlarged. BONES AND SOFT TISSUES: No acute abnormalities. Surgical hardware thoracolumbar spine. RAD/Chest 1 View (Portable) IMPRESSION: Small bilateral pleural effusions greater on the right. Bibasilar atelectasis or infiltrates. Electronically Signed: Rosy Lira MD at 5:48 EST ,
[2023-02-21 05:24] LABS: Absolute Lymphocyte Count 0.98 X10^3/uL (0.83-4.51); Absolute Neutrophil Count 8.6 X10^3/uL (2.0-7.7); Basophil# 0.09 X10^3/uL; Basophil% 0.8 % (0-1); Eosinophil# 0.56 X10^3/uL; Eosinophils% 4.8 % (0-5); Hemoglobin 11.2 g/dL (12.0-15.0); Lymphocyte # 0.98 X10^3/ul (0.83-4.51); Lymphocyte % 8.5 % (19-41); Mean Corp Hgb Conc 30.3 g/dL (32-36); Mean Corpuscular Hgb 29.2 pg (27.0-32.0); Mean Corpuscular Volume 96.4 fL (81-99); Mean Platelet Vol. 11.6 fl (6.2-12.0); Monocyte# 1.06 X10^3/uL; Monocyte% 9.1 % (0-10); NRBC Flagged by Analyzer 0 % (0-5); Neutrophil # 8.62 X10^3/uL (2.7-7.7); Neutrophil % 74.4 % (47-70); Platelet Count 178 K/mm3 (150-450); RBC Distribution Width CV 15.1 % (11.6-14.6); RBC Distribution Width SD 52.9 fl (35.1-43.9); Red Blood Count 3.84 M/mm3 (4.2-5.4); White Blood Count 11.6 K/mm3 (4.4-11.0)
[2023-02-21 05:38] LABS: Anion Gap 5 (5-15); BUN 62 mg/dL (7-18); BUN/Creat Ratio 16.3 RATIO (10-20); Calcium,Total 8.7 mg/dL (8.5-10.1); Chloride 120 mmol/L (98-107); Creatinine, Serum 3.81 mg/dL (0.55-1.02); EST Glomerular Filtration Rate 12 mL/min (>60); Est Glom Filt Rate - Afr Amer 15 mL/min (>60); Estimated Creatinine Clearance 12.67 ml/min; Glucose 132 mg/dL (74-106); Phosphorus 4.7 mg/dL (2.5-4.9); Potassium 4.7 mmol/L (3.5-5.1); Sodium Level 148 mmol/L (136-145)
--- NOTE | 2023-02-21 07:17 | PCM.PN.HOSP ---
Reason for Visit Reason for Visit: Diagnoses Sepsis, unspecified organism (02/17/23) Sleep apnea, unspecified (02/17/23) Acute kidney failure, unspecified (02/17/23) Urinary tract infection, site not specified (02/17/23) Severe sepsis without septic shock (02/17/23) Severe sepsis with septic shock (02/17/23) Subjective Subjective Patient remains hypotensive in the ICU patient remains on Levophed. Midodrine added to patient treatment. Objective Data Objective Data Vital Signs: Vital Signs Temp Pulse Resp BP Pulse Ox O2 Del Method O2 Flow Rate 97.9 F 70 21 H 104/60 95 Nasal Cannula 2 02/21/23 04:00 02/21/23 06:00 02/21/23 06:00 02/21/23 06:00 02/21/23 06:00 02/21/23 06:00 02/21/23 06:00 FiO2 29 02/20/23 07:38 Oxygen Flow Rate (L/min) 2 Oxygen Delivery Method Nasal Cannula Weight: 165.9 kg Body Mass Index (BMI) 55.5 Intake & Output: Intake and Output for Last 24 Hours 02/19/23 02/20/23 02/21/23 23:59 23:59 23:59 Intake Total 2875.43 / 2997.33 2808.93 / 2818.33 448.88 / 448.88 Output Total 700 / 700 1300 / 1800 1100 / 1100 Balance 2175.43 / 2297.33 1508.93 / 1018.33 -651.12 / -651.12 Lab / Micro Data 02/21/23 05:15 02/21/23 05:15 Labs: Laboratory Results - last 24 hr 02/20/23 18:55: APTT 33.0 02/21/23 01:45: APTT 61.9 H 02/21/23 05:15: WBC 11.6 H, RBC 3.84 L, Hgb 11.2 L, Hct 37.0, MCV 96.4, MCH 29.2, MCHC 30.3 L, RDW Std Deviation 52.9 H, RDW Coeff of Ruben 15.1 H, Plt Count 178, MPV 11.6, Immature Gran % (Auto) 2.400 H, Neut % (Auto) 74.4 H, Lymph % (Auto) 8.5 L, [place] % (Auto) 9.1, Eos % (Auto) 4.8, Baso % (Auto) 0.8, Absolute Neuts (auto) 8.6 H, Absolute Lymphs (auto) 0.98, Nucleated RBC % 0, Sodium 148 H, Potassium 4.7, Chloride 120 H, Carbon Dioxide 23.0, Anion Gap 5, BUN 62 H, Creatinine 3.81 H, Estim Creat Clear Calc 12.67, Est GFR (MDRD) Af Amer 15 L, Est GFR (MDRD) Non-Af 12 L, BUN/Creatinine Ratio 16.3, Glucose 132 H, Calcium 8.7, Phosphorus 4.7, Magnesium 2.0 02/21/23 05:23: Ionized Calcium 5.20 Micro: Microbiology 02/17/23 19:35 Blood Culture (Wb) - Left Hand Blood Culture - Preliminary No growth in 48 hours. 02/17/23 19:35 Blood Culture (Wb) - Anticubital Left Blood Culture - Preliminary No growth in 48 hours. 02/17/23 19:05 Urine Catheter - [place] Urine Culture - Final ESBL Escherichia coli Radiography Diagnostic Testing: Radiology Impression Chest X-Ray 02/21/23 04:40 IMPRESSION: Small bilateral pleural effusions greater on the right. Bibasilar atelectasis or infiltrates. Electronically Signed: Rosy Lira MD at 5:48 EST , Physical Exam Narrative GENERAL: cooperative HEENT: Atraumatic; normocephalic EYES; Anicteric, Normal Conjunctiva NECK; supple, normal thyroid, RESPIRATORY: Diminished to auscultation CARDIOVASCULAR: Regular S1 S2, GI: soft, normoactive bowel sounds, : No Renal angle tenderness; EXTREMITIES: edema, no clubbing, MUSCULOSKELETAL: no muscle wasting NEURO: Awake; no lateralizing signs. SKIN: No Rash PSYCH; Flat affect Assessment & Plan Assessment/Plan (1) Severe sepsis: (2) Acute UTI: (3) ROSELYN (acute kidney injury): PLAN: Plan Patient is a 77-year-old lady with multiple comorbidities admitted with progressive generalized weakness and assessment of septic shock secondary to acute cystitis made admitted to the intensive care unit where patient has since been managed 1. Septic shock ? Secondary to ESBL E. coli. Admitted to the intensive care unit patient managed with broad-spectrum antibiotic therapy with meropenem as well as pressors with norepinephrine. ? 02/21/2023;Patient remains hypotensive in the ICU patient remains on Levophed. Midodrine added to patient treatment. 2. Acute kidney injury -Patient has a baseline creatinine between 1.1 and 1.4, creatinine on admission was 3.73. Patient kidney function continues to worsen up to 4.26. Consult placed to nephrology ? 02/21/2023 creatinine down to 3.81 3. Class III obesity with BMI of 55.3 ? Complicating care, weight loss advised 4. Hyperkalemia ? Patient potassium supplement discontinued 5. Dyslipidemia -Patient is on statin therapy, continued at home dose 6. Depression with anxiety ? Patient is on fluoxetine as well as lorazepam as needed 7. GERD ? Patient is on PPI did continue 8. Obstructive sleep apnea ? PAP therapy at night 9. Hypernatremia ? Secondary to aggressive IV fluid resuscitation with saline this has been transitioned to Ringer's lactate with subsequent monitoring of electrolytes ordered ? 02/21/2023 sodium level up to 148 chloride 120, patient fluid had been adjusted the day prior 10. Diabetes mellitus type 2 ? Currently managed with diet please on Accu-Cheks before meals and at bedtime with sliding scale coverage 10. Paroxysmal A-fib ? Rate controlled on metoprolol 11. History of Spinal osteomyelitis underwent T12 an L1 corpectomy at the [facility] in 2015 12. Anemia - Secondary to chronic disorder monitoring H&H and transfuse if patient becomes symptomatic or hemoglobin falls below 7 13. DVT prophylaxis ? SC heparin Time spent in the patient's overall evaluation,decision-making process, review of diagnostic data, adjustment of management, discussion with other providers, nursing nursing and ancillary staff involved in patient's care documentation, 50 Minutes Charges/Coding Visit Charges Inpatient E&M: 59606 [facility] Hosp L3
[2023-02-21] MEDS: Budesonide Respules 0.5 MG/2 ML AMPUL.NEB. INHALATION ×2 (07:27→20:25)
[2023-02-21] MEDS: Midodrine HCl 5 MG Tablet PO (08:27)
[2023-02-21] MEDS: Folic Acid/Vitamin B Comp W-C 1 Capsule 1 CAP PO (08:27)
[2023-02-21] MEDS: Ascorbic Acid 500 MG Tablet 1000 MG PO ×2 (08:27→17:22)
[2023-02-21] MEDS: Zinc Sulfate 50 mg zinc (220 mg) ORAL capsule PO (08:28)
[2023-02-21] MEDS: Senna/Docusate Sodium 1 Tablet PO (08:28)
[2023-02-21] MEDS: FLUoxetine 20 MG Capsule PO (08:29)
[2023-02-21] MEDS: Pantoprazole Sodium 40 MG Tablet PO (08:29)
[2023-02-21] MEDS: Gabapentin 100 MG Capsule PO ×2 (08:32→21:53)
--- NOTE | 2023-02-21 08:54 | CASEMGMT ---
Addendum entered by Lauryn Lamb 02/21/23 10:08: Social Work SW participated in ICU rounds, daughter Neema present. SW checked in w/daughter and pt after rounds, they would like referrals to [facility] and [facility]. SW left message for TCU, will send referral to [facility] also. LINDA Bender Original Note: Social Work SW met w/pt in room to inquire about alf choices. Pt on phone with family and states this family member would not be one to help w/decisions. Pt not sure of where she would like referrals yet, SW will check back w/her later this morning about alf choices. LINDA Bender
[2023-02-21 09:07] LABS: Partial Thromboplast Time 119.9 Seconds (24.1-36.2)
--- NOTE | 2023-02-21 10:05 | CASEMGMT ---
Social Work Pt's daughter Neema present, confirms she is POA. She states that she is pt's medical POA, and will have the patent prosecution attorney's office fax over the papers, SW gave her the fax number to pass on to the patent prosecution attorney. LINDA Bender
[2023-02-21] MEDS: Meropenem 1 GM in 0.9% Normal Saline (100mL MB+) 100 ML IV ×2 (10:16→21:53)
--- NOTE | 2023-02-21 10:59 | CASEMGMT ---
Addendum entered by April Bullock 02/21/23 11:13: W declined patient d/t her exceeding their weight limit. SW updated. April Bullock, Discharge Planning Asst. Original Note: Discharge Planning Referral sent via [facility] to [facility]. April Bullock, Discharge Planning Asst.
--- NOTE | 2023-02-21 11:12 | CASEMGMT ---
Addendum entered by Lauryn Lamb 02/21/23 12:14: Social Work SW did speak w/pt and daughter about other choices for pen[facility]entiary in event that [facility]CU cannot take pt. SW did let her know that [facility] cannot take pt due to her weight, and it may be the same for TCU. SW asked them to review the list and let SW know tomorrow some additional choices. Both state understanding. LINDA Bender Original Note: Social Work The social service director from Dr. Mireles's office called and she was trying to get a hold of the daughter but her voicemail is full. SW gave daughter the message to call the BRETT Sotelo at Dr. Mireles's office at [phone]. [facility] declined the referral. TCU may not be able to take pt either due to her weight. SW will speak w/pt and daughter about other options. LINDA Bender
--- NOTE | 2023-02-21 11:16 | PN.RENAL_ITS ---
Documented by User: JERROD Villarreal 02/21/23 12:17 Subjective Subjective Patient is alert, sitting up in bed. Daughter at bedside. Denies any nausea, vomiting, or diarrhea. No overnight events. Objective Data Objective Data Vital Signs: Vital Signs Temp Pulse Resp BP Pulse Ox O2 Del Method O2 Flow Rate 97.9 F 71 22 H 121/67 H 94 Nasal Cannula 2 02/21/23 04:00 02/21/23 07:28 02/21/23 07:28 02/21/23 07:00 02/21/23 07:28 02/21/23 07:28 02/21/23 07:28 FiO2 29 02/20/23 07:38 Oxygen Flow Rate (L/min) 2 Oxygen Delivery Method Nasal Cannula Weight: 165.9 kg Body Mass Index (BMI) 55.5 Intake & Output: Intake and Output for Last 24 Hours 02/19/23 02/20/23 02/21/23 23:59 23:59 23:59 Intake Total 2875.43 / 2997.33 2808.93 / 2818.33 529.28 / 529.28 Output Total 700 / 700 1300 / 1800 1100 / 1100 Balance 2175.43 / 2297.33 1508.93 / 1018.33 -570.72 / -570.72 Lab / Micro Data 02/21/23 05:15 02/21/23 05:15 Labs: Laboratory Results - last 24 hr 02/20/23 18:55: APTT 33.0 02/21/23 01:45: APTT 61.9 H 02/21/23 05:15: WBC 11.6 H, RBC 3.84 L, Hgb 11.2 L, Hct 37.0, MCV 96.4, MCH 29.2, MCHC 30.3 L, RDW Std Deviation 52.9 H, RDW Coeff of Ruben 15.1 H, Plt Count 178, MPV 11.6, Immature Gran % (Auto) 2.400 H, Neut % (Auto) 74.4 H, Lymph % (Auto) 8.5 L, [place] % (Auto) 9.1, Eos % (Auto) 4.8, Baso % (Auto) 0.8, Absolute Neuts (auto) 8.6 H, Absolute Lymphs (auto) 0.98, Nucleated RBC % 0, Sodium 148 H , Potassium 4.7, Chloride 120 H, Carbon Dioxide 23.0, Anion Gap 5, BUN 62 H, Creatinine 3.81 H, Estim Creat Clear Calc 12.67, Est GFR (MDRD) Af Amer 15 L, Es t GFR (MDRD) Non-Af 12 L, BUN/Creatinine Ratio 16.3, Glucose 132 H, Calcium 8.7, Phosphorus 4.7, Magnesium 2.0 02/21/23 05:23: Ionized Calcium 5.20 02/21/23 08:40: APTT 119.9 H* Micro: Microbiology 02/17/23 19:35 Blood Culture (Wb) - Left Hand Blood Culture - Preliminary No growth in 48 hours. 02/17/23 19:35 Blood Culture (Wb) - Anticubital Left Blood Culture - Preliminary No growth in 48 hours. 02/17/23 19:05 Urine Catheter - [place] Urine Culture - Final ESBL Escherichia coli Radiography Diagnostic Testing: Radiology Impression Chest X-Ray 02/21/23 04:40 IMPRESSION: Small bilateral pleural effusions greater on the right. Bibasilar atelectasis or infiltrates. Electronically Signed: Rosy Lira MD at 5:48 EST , Physical Exam Narrative Alert awake oriented x 3 no obvious distress s1s2 no murmurs lungs clear abdomen soft, rounded, positive bowel sounds no pitting edema [place] + Assessment & Plan Assessment/Plan (1) ROSELYN (acute kidney injury): PLAN: - Nonoliguric acute renal failure superimposed on CKD stage IIIa (baseline SCr ~1.3-1.5). Presumably due to severe sepsis. Creatinine was 3.7 on admission, peaked 4.2 yesterday and today serum creatinine 3.81. No acute indication for FICTION WRITER. Volume status acceptable. No acidemia or hyperkalemia - Ecoli UTI, on meropenem. BC final pending - some improvement in BPs, on levophed, also on midodrine. urine output 1.3L yesterday. Patient is net positive, off maintenance IVF. Off bipap, on nasal cannula Documented by User: Dr. Saniya Monreal MD 02/21/23 17:15 Objective Data Lab / Micro Data 02/21/23 05:15 02/21/23 05:15 Assessment & Plan Assessment/Plan (1) ROSELYN (acute kidney injury): PLAN: - Nonoliguric acute renal failure superimposed on CKD stage IIIa (baseline SCr ~1.3-1.5). Presumably due to severe sepsis. Creatinine was 3.7 on admission, peaked 4.2 yesterday and today serum creatinine 3.81. No acute indication for FICTION WRITER. Volume status acceptable. No acidemia or hyperkalemia - Ecoli UTI, on meropenem. BC final pending - some improvement in BPs, on levophed, also on midodrine. urine output 1.3L yesterday. Patient is net positive, off maintenance IVF. Off bipap, on nasal cannula Attending addendum cr is better. urine output is better.
[2023-02-21] MEDS: Midodrine HCl 5 MG Tablet 10 MG PO ×2 (12:37→17:22)
--- NOTE | 2023-02-21 13:03 | CHAPLAIN ---
Type of Pastoral Visit ___ Initial Visit _x__ Follow-up Visit ___ On-call Visit ___ General Patient Visit ___ Spiritual Assessment ___ Family Conference ___ Bereavement ___ Rapid Response ___ Code Blue ___ Other (describe below) Pastoral Care Referral From _x__ Patient _x__ Family ___ Nurse ___ Physician ___ Fire Battalion Chief ___ Table And Desk Finisher ___ Other (describe below) Sacrament/Intervention _x__ Active listening ___ Anointing ___ Zoroastrianism ___ Bereavement ___ Communion ___ Caryn exploration ___ ___ Life review _x__ Prayer ___ Reconciliation ___ Sacrament of Sick _x__ Supportive presence ___ Wedding ___ Other (describe below) Pastoral Comments patient is alert and daughter is in the room with her; pt speaks of experiencing some improvements although admits more to go; pt is aksed how she is coping and she states that it is fair; both are welcoming, share some more lighthearted comments and ask for a prayer; RN comes into room to do her duties
--- NOTE | 2023-02-21 15:54 | PCM.PN.INT ---
Assessment & Plan Assessment/Plan (1) Acute UTI: (2) Septic shock due to urinary tract infection: (3) Apnea, sleep: QUALIFIERS: Sleep apnea type: unspecified type Qualified Code(s): G47.30 - Sleep apnea, unspecified (4) ROSELYN (acute kidney injury): PLAN: Plan RECOMMENDATIONS: patient went into A-fib with RVR was started on heparin drip and amiodarone drip. CHADSVASC score of 4. Pt reports hx of A fib but she's not sure why she's not on AC. Levophed down to 5mcg will increase midodrine to 10 tid Chest x-ray done this morning shows some congestion no signs of pneumonia Creatinine continues to improve we will continue to hold diuretics. Tolerates BiPAP at night and 2 L via nasal cannula during the day Cont merrem for ESBL UTI IMPRESSIONS: 1. Septic shock secondary to ESBL E. coli UTI Patient does have a UA suggestive of urinary tract infection. Given progression of hypotension following antibiotics, this would suggest a gram-negative etiology. Patient has been treated with Zosyn, but unfortunately this will not cover ESBL. Patient will be transitioned over to Merrem. Patient may decompensate with the change and require additional pressors. Will place PICC as previously discussed with the family 2. ROBBI with reported asthma Patient does have a baseline obstructive sleep apnea and reportedly is compliant with ROBBI therapy. Patient tolerated this well overnight. Patient is on Symbicort at home, but no pulmonary function tests are available for review. Budesonide therapeutic substitution likely appropriate. Cannot exclude the need for increased oxygen requirements overnight given fluid resuscitation. 3. Acute on chronic kidney disease stage III Clinical suspicion for prerenal etiology secondary to problem #1. Patient's baseline creatinine appears to be between 1.3 and 1.4. Continue with aggressive BP support. Patient does state that she doubts that she would be agreeable to dialysis at this time. Patient does not have any indication for renal replacement therapy, so we will hold off on nephrology consult for now. Patient did have significant hyperkalemia on presentation, but this may be secondary to acidosis. 4. Tinea cruris Patient does have significant breakdown. Patient has been initiated on nystatin powder. Could consider wound nurse evaluation moving forward. Patient does have some gram-positive coverage with Zosyn. 5. Hypernatremia/hyperchloremia Likely iatrogenic due to IV fluid infusion. These were stopped. Encourage p.o. water intake 6. A-fib with RVR Occured overnight 02/20 and she was started on heparin drip and amiodarone drip. CHADSVASC score of 4. Pt reports hx of A fib but she's not sure why she's not on AC. 7. Generalized weakness/morbid obesity/hypertension/hyperlipidemia/diabetes mellitus type 2/anemia/anxiety/advanced age/edema Complicates care, management, recovery and prognosis. Patient reportedly was recently placed on Lasix secondary to lower extremity edema. This, and antihypertensives, has been held secondary to problem #1 and #3. Would use benzodiazepines sparingly as patient is at risk for the development of delirium. Will attempt to discuss with patient and family later today about goals of therapy regarding central line and CODE STATUS. TIME: 36 minutes of critical care time spent addressing patient's septic shock, ROBBI, acute kidney injury, tinea cruris, diabetes, review of all data and collaboration with care team Subjective Subjective Patient went into A-fib with RVR last night was started on heparin drip and amiodarone drip which improved her heart rate. Objective Data Objective Data Vital Signs: Vital Signs Temp Pulse Resp BP Pulse Ox O2 Del Method O2 Flow Rate 36.2 C L 72 20 H 121/51 H 95 Nasal Cannula 2 02/21/23 12:00 02/21/23 12:00 02/21/23 12:00 02/21/23 12:00 02/21/23 13:21 02/21/23 12:00 02/21/23 13:21 FiO2 29 02/20/23 07:38 Oxygen Flow Rate (L/min) 2 Oxygen Delivery Method Nasal Cannula Weight: 165.9 kg Body Mass Index (BMI) 55.5 Intake & Output: Intake and Output for Last 24 Hours 02/19/23 02/20/23 02/21/23 23:59 23:59 23:59 Intake Total 2875.43 / 2997.33 2808.93 / 2818.33 1375.34 / 1375.34 Output Total 700 / 700 1300 / 1800 1600 / 1600 Balance 2175.43 / 2297.33 1508.93 / 1018.33 -224.66 / -224.66 Lab / Micro Data 02/21/23 05:15 02/21/23 05:15 Labs: Laboratory Results - last 24 hr 02/20/23 18:55: APTT 33.0 02/21/23 01:45: APTT 61.9 H 02/21/23 05:15: WBC 11.6 H, RBC 3.84 L, Hgb 11.2 L, Hct 37.0, MCV 96.4, MCH 29.2, MCHC 30.3 L, RDW Std Deviation 52.9 H, RDW Coeff of Ruben 15.1 H, Plt Count 178, MPV 11.6, Immature Gran % (Auto) 2.400 H, Neut % (Auto) 74.4 H, Lymph % (Auto) 8.5 L, [place] % (Auto) 9.1, Eos % (Auto) 4.8, Baso % (Auto) 0.8, Absolute Neuts (auto) 8.6 H, Absolute Lymphs (auto) 0.98, Nucleated RBC % 0, Sodium 148 H, Potassium 4.7, Chloride 120 H, Carbon Dioxide 23.0, Anion Gap 5, BUN 62 H, Creatinine 3.81 H, Estim Creat Clear Calc 12.67, Est GFR (MDRD) Af Amer 15 L, Est GFR (MDRD) Non-Af 12 L, BUN/Creatinine Ratio 16.3, Glucose 132 H, Calcium 8.7, Phosphorus 4.7, Magnesium 2.0 02/21/23 05:23: Ionized Calcium 5.20 02/21/23 08:40: APTT 119.9 H* Micro: Microbiology 02/17/23 19:35 Blood Culture (Wb) - Left Hand Blood Culture - Preliminary No growth in 48 hours. 02/17/23 19:35 Blood Culture (Wb) - Anticubital Left Blood Culture - Preliminary No growth in 48 hours. 02/17/23 19:05 Urine Catheter - [place] Urine Culture - Final ESBL Escherichia coli Radiography Diagnostic Testing: Radiology Impression Chest X-Ray 02/21/23 04:40 IMPRESSION: Small bilateral pleural effusions greater on the right. Bibasilar atelectasis or infiltrates. Electronically Signed: Rosy Lira MD at 5:48 EST , Physical Exam Narrative General alert oriented in no acute distress Respiratory distant breath sounds, no wheezing Cardiac distant cardiac sounds, S1-S2 GI abdomen is obese, soft and nontender MSK 1+ b.l lower extremity edema Neuro moves all extremities, no dysarthria, no facial droop Charges/Coding Procedures Hospitalists Procedures: 15599 Critical Care 1st Hr
--- NOTE | 2023-02-21 15:55 | ECHOCS_ITS ---
Reason For Study: Afib, Aflutter Procedure This was a 2D Doppler, Color Flow transthoracic echocardiogram. Contrast injection was performed. Exam performed portable in ICU/CCU. Left Ventricle Normal LV size. Mild concentric left ventricular hypertrophy. The left ventricular ejection fraction is 70 %. Diastolic function is indeterminate. Right Ventricle Normal right ventricle. Atria There is severe biatrial dilatation. Mitral Valve Mild focal mitral valve calcification, bileaflet. Tricuspid Valve Trivial tricuspid valve insufficiency. Unable to estimate RV systolic pressure due to insufficient tricuspid regurgitant envelope. Aortic Valve Trisinus/trileaflet aortic valve. Moderate diffuse aortic valve calcification. Moderate aortic stenosis. Great Vessels Normal sized aortic root. Pericardium/Pleural Trivial pericardial effusion. Medication Diluted definity 3ml given slow IV push to enhance endocardial definition. MMode/2D Measurements & Calculations LVIDd: 4.8 cm IVSd: 1.2 cm LVOT diam: 2.0 cm LVIDs: 2.7 cm LVPWd: 1.2 cm LVOT area: 3.2 cm2 RVDd: 4.7 cm FS: 43.0 % Ao root diam: 3.0 cm LAV(MOD-bp): 62.2 ml LVAd ap4: 27.8 cm2 LAV(MOD-bp) Indexed: 23.6 ml/m2 LVLd ap4: 7.9 cm LAV(MOD-sp2): 51.0 ml EDV(MOD-sp4): 79.8 ml LAV(MOD-sp4): 63.1 ml EDV(sp4-el): 83.5 ml LVAs ap4: 14.2 cm2 LVLs ap4: 7.0 cm ESV(MOD-sp4): 23.3 ml ESV(sp4-el): 24.6 ml EF(MOD-sp4): 70.8 % EF(sp4-el): 70.6 % SV(MOD-sp4): 56.5 ml SV(sp4-el): 58.9 ml LA A4 area: 21.5 cm2 LA dimension(2D): 4.8 cm RA A4 area: 19.4 cm2 TAPSE: 3.0 cm Time Measurements MV dec time: 0.31 sec Doppler Measurements & Calculations MV E max matty: 138.0 cm/sec Lat Peak E' Matty: 8.1 cm/sec Med Peak E' Matty: 7.4 cm/sec MV A max matty: 142.9 cm/sec E/E' lat: 17.1 E/E' med: 18.7 MV E/A: 0.97 MV V2 max: 191.4 cm/sec Ao V2 max: 357.0 cm/sec MV max P.6 mmHg MV dec slope: 439.3 cm/sec2 Ao max P.0 mmHg MV V2 mean: 116.0 cm/sec Ao V2 mean: 279.4 cm/sec MV mean P.1 mmHg Ao mean P.1 mmHg MV V2 VTI: 58.8 cm Ao V2 VTI: 83.8 cm AV (velocity ratio): 0.43 MVA(VTI): 1.9 cm2 BENNY(I,D): 1.4 cm2 BENNY(V,D): 1.3 cm2 LV V1 max: 149.9 cm/sec SV(LVOT): 114.5 ml PA V2 max: 110.4 cm/sec LV V1 max P.0 mmHg LV V1 mean P.9 mmHg LV V1 mean: 117.8 cm/sec LV V1 VTI: 36.1 cm ECHO/Echo Complete W/ Contrast Interpretation Summary Mild concentric left ventricular hypertrophy. The left ventricular ejection fraction is 70 %. Diastolic function is indeterminate. Moderate aortic stenosis. There is severe biatrial dilatation. Ordering Physician: Justin Bui Referring Physician: Sandrine Mireles Performed By: Tesha Evans, AYSE, RVT
[2023-02-21 16:39] LABS: Partial Thromboplast Time 37.2 Seconds (24.1-36.2)
[2023-02-21] MEDS: Heparin Injection (Vial) 5,000 UNIT/ML VIAL IV (16:43)
[2023-02-21] MEDS: Albuterol 2.5 MG/3 ML VIAL.NEB. INHALATION (20:25)
[2023-02-21 23:32] LABS: Partial Thromboplast Time 53.9 Seconds (24.1-36.2)
[2023-02-22] VITALS (35 sets, daily range): BP systolic 103–148; BP diastolic 42–74; PULSE 59–82; RESP 18–27; TEMP 36.2–36.8; O2SAT 91–97; BMI 55.4
[2023-02-22] MEDS: HEPARIN/D5w 25,000 UNITS 25,000 UNITS/250 ML IV.SOLN. 10 UNITS CONT INF (00:35)
[2023-02-22] MEDS: Amiodarone 360 MG in Dextrose 5% Viaflo Bag 192.8 ML 16.6999999999999993 MG CONT INF (02:47)
[2023-02-22] MEDS: 0.9% Saline Lock 10 ML Syringe IV (05:46)
[2023-02-22 05:50] LABS: Absolute Lymphocyte Count 0.97 X10^3/uL (0.83-4.51); Basophil# 0.07 X10^3/uL; Basophil% 0.8 % (0-1); Eosinophil# 0.58 X10^3/uL; Eosinophils% 6.4 % (0-5); Hematocrit 35.4 % (37-47); Hemoglobin 10.9 g/dL (12.0-15.0); Lymphocyte # 0.97 X10^3/ul (0.83-4.51); Lymphocyte % 10.8 % (19-41); Mean Corp Hgb Conc 30.8 g/dL (32-36); Mean Corpuscular Hgb 29.6 pg (27.0-32.0); Mean Corpuscular Volume 96.2 fL (81-99); Mean Platelet Vol. 10.9 fl (6.2-12.0); Monocyte# 1.02 X10^3/uL; Monocyte% 11.3 % (0-10); NRBC Flagged by Analyzer 0 % (0-5); Neutrophil # 6.02 X10^3/uL (2.7-7.7); Neutrophil % 66.7 % (47-70); Platelet Count 151 K/mm3 (150-450); RBC Distribution Width CV 15.6 % (11.6-14.6); RBC Distribution Width SD 54.7 fl (35.1-43.9); Red Blood Count 3.68 M/mm3 (4.2-5.4)
[2023-02-22 06:04] LABS: Anion Gap 4 (5-15); BUN 58 mg/dL (7-18); Chloride 120 mmol/L (98-107); Creatinine, Serum 3.22 mg/dL (0.55-1.02); EST Glomerular Filtration Rate 15 mL/min (>60); Est Glom Filt Rate - Afr Amer 18 mL/min (>60); Estimated Creatinine Clearance 14.99 ml/min; Glucose 124 mg/dL (74-106); Potassium 4.6 mmol/L (3.5-5.1); Sodium Level 147 mmol/L (136-145)
[2023-02-22 06:49] LABS: Ionized Calcium 5.25 mg/dL (4.36-5.20)
[2023-02-22] MEDS: Budesonide Respules 0.5 MG/2 ML AMPUL.NEB. INHALATION ×2 (07:05→20:00)
--- NOTE | 2023-02-22 07:28 | PCM.PN.HOSP ---
Reason for Visit Reason for Visit: Diagnoses Sepsis, unspecified organism (02/17/23) Sleep apnea, unspecified (02/17/23) Acute kidney failure, unspecified (02/17/23) Urinary tract infection, site not specified (02/17/23) Severe sepsis without septic shock (02/17/23) Severe sepsis with septic shock (02/17/23) Subjective Subjective Patient seen, remains in ICU on Levophed drip. Patient has been started on midodrine. WBC count trending down however sodium level and chloride level remains elevated. No significant change in kidney function. Objective Data Objective Data Vital Signs: Vital Signs Temp Pulse Resp BP Pulse Ox O2 Del Method O2 Flow Rate 97.9 F 64 18 131/49 H 93 Nasal Cannula 2 02/22/23 04:00 02/22/23 07:05 02/22/23 07:05 02/22/23 07:00 02/22/23 07:05 02/22/23 07:05 02/22/23 07:05 FiO2 29 02/20/23 07:38 Oxygen Flow Rate (L/min) 2 Oxygen Delivery Method Nasal Cannula Weight: 166 kg Body Mass Index (BMI) 55.4 Intake & Output: Intake and Output for Last 24 Hours 02/20/23 02/21/23 02/22/23 23:59 23:59 23:59 Intake Total 2808.93 / 2818.33 2054.95 / 2056.35 229.32 / 229.32 Output Total 1300 / 1800 1975 / 2475 925 / 925 Balance 1508.93 / 1018.33 79.95 / -418.65 -695.68 / -695.68 Lab / Micro Data 02/22/23 05:40 02/22/23 05:40 Labs: Laboratory Results - last 24 hr 02/21/23 08:40: APTT 119.9 H* 02/21/23 16:15: APTT 37.2 H 02/21/23 22:50: APTT 53.9 H 02/22/23 05:40: WBC 9.0, RBC 3.68 L, Hgb 10.9 L, Hct 35.4 L, MCV 96.2, MCH 29.6, MCHC 30.8 L, RDW Std Deviation 54.7 H, RDW Coeff of Ruben 15.6 H, Plt Count 151, MPV 10.9, Immature Gran % (Auto) 4.000 H, Neut % (Auto) 66.7, Lymph % (Auto) 10.8 L, [place] % (Auto) 11.3 H, Eos % (Auto) 6.4 H, Baso % (Auto) 0.8, Absolute Neuts (auto) 6.0, Absolute Lymphs (auto) 0.97, Nucleated RBC % 0, APTT 43.0 H, Sodium 147 H, Potassium 4.6, Chloride 120 H, Carbon Dioxide 23.0, Anion Gap 4 L, BUN 58 H, Creatinine 3.22 H, Estim Creat Clear Calc 14.99, Est GFR (MDRD) Af Amer 18 L, Est GFR (MDRD) Non-Af 15 L, BUN/Creatinine Ratio 18.0, Glucose 124 H, Calcium 9.0 02/22/23 06:45: Ionized Calcium 5.25 H Micro: Microbiology 02/17/23 19:35 Blood Culture (Wb) - Left Hand Blood Culture - Preliminary No growth in 48 hours. 02/17/23 19:35 Blood Culture (Wb) - Anticubital Left Blood Culture - Preliminary No growth in 48 hours. 02/17/23 19:05 Urine Catheter - Croft Urine Culture - Final ESBL Escherichia coli ABG Data ABG results: ABG 02/22/23 06:45 VBG Carboxyhemoglobin 3.0 H Physical Exam Narrative GENERAL: cooperative HEENT: Atraumatic; normocephalic EYES; Anicteric, Normal Conjunctiva NECK; supple, normal thyroid, RESPIRATORY: Diminished to auscultation CARDIOVASCULAR: Regular S1 S2, GI: soft, normoactive bowel sounds, : No Renal angle tenderness; EXTREMITIES: edema, no clubbing, MUSCULOSKELETAL: no muscle wasting NEURO: Awake; no lateralizing signs. SKIN: No Rash PSYCH; Flat affect Assessment & Plan Assessment/Plan (1) Severe sepsis: (2) Acute UTI: (3) ROSELYN (acute kidney injury): PLAN: Plan Patient is a 77-year-old lady with multiple comorbidities admitted with progressive generalized weakness and assessment of septic shock secondary to acute cystitis made admitted to the intensive care unit where patient has since been managed 1. Septic shock ? Secondary to ESBL E. coli. Admitted to the intensive care unit patient managed with broad-spectrum antibiotic therapy with meropenem as well as pressors with norepinephrine. ? 02/21/2023;Patient remains hypotensive in the ICU patient remains on Levophed. Midodrine added to patient treatment. ? 02/22/2023; patient remains on pressor support with Levophed. 2. Acute kidney injury -Patient has a baseline creatinine between 1.1 and 1.4, creatinine on admission was 3.73. Patient kidney function continues to worsen up to 4.26. Consult placed to nephrology ? 02/21/2023 creatinine down to 3.81 ? 02/22/2023; creatinine down to 3.22 3. Class III obesity with BMI of 55.3 ? Complicating care, weight loss advised 4. Hyperkalemia ? Patient potassium supplement discontinued 5. Dyslipidemia -Patient is on statin therapy, continued at home dose 6. Depression with anxiety ? Patient is on fluoxetine as well as lorazepam as needed 7. GERD ? Patient is on PPI did continue 8. Obstructive sleep apnea ? PAP therapy at night 9. Hypernatremia ? Secondary to aggressive IV fluid resuscitation with saline this has been transitioned to Ringer's lactate with subsequent monitoring of electrolytes ordered ? 02/21/2023 sodium level up to 148 chloride 120, patient fluid had been adjusted the day prior ? 02/22/2023; sodium levels remained elevated at 147 patient started on 0.45 saline. 10. Diabetes mellitus type 2 ? Currently managed with diet please on Accu-Cheks before meals and at bedtime with sliding scale coverage 10. Paroxysmal A-fib ? Rate controlled on metoprolol 11. History of Spinal osteomyelitis underwent T12 an L1 corpectomy at the [facility] in 2014 12. Anemia - Secondary to chronic disorder monitoring H&H and transfuse if patient becomes symptomatic or hemoglobin falls below 7 13. DVT prophylaxis ? SC heparin Time spent in the patient's overall evaluation,decision-making process, review of diagnostic data, adjustment of management, discussion with other providers, nursing nursing and ancillary staff involved in patient's care documentation, 50 Minutes Charges/Coding Visit Charges Inpatient E&M: 73027 Subs Hosp L3
--- NOTE | 2023-02-22 07:37 | CASEMGMT ---
Social Work SW received message from TCU, they are not able to accept pt. SW to follow up w/pt and daughter regarding additional choices for [facility] facility. LINDA Bender
[2023-02-22] MEDS: Meropenem 1 GM in 0.9% Normal Saline (100mL MB+) 100 ML IV ×2 (09:18→21:20)
[2023-02-22] MEDS: Midodrine HCl 5 MG Tablet 10 MG PO ×3 (09:19→17:46)
[2023-02-22] MEDS: Ascorbic Acid 500 MG Tablet 1000 MG PO ×2 (09:19→17:46)
[2023-02-22] MEDS: Gabapentin 100 MG Capsule PO ×2 (09:19→21:20)
[2023-02-22] MEDS: Senna/Docusate Sodium 1 Tablet PO ×2 (09:19)
[2023-02-22] MEDS: FLUoxetine 20 MG Capsule PO (09:19)
[2023-02-22] MEDS: Folic Acid/Vitamin B Comp W-C 1 Capsule 1 CAP PO (09:20)
[2023-02-22] MEDS: Pantoprazole Sodium 40 MG Tablet PO (09:20)
[2023-02-22] MEDS: Zinc Sulfate 50 mg zinc (220 mg) ORAL capsule PO (09:21)
[2023-02-22] MEDS: 0.45% Normal Saline 1,000 ML 100 ML IV (13:58)
[2023-02-22] MEDS: Acetaminophen 325 MG Tablet 650 MG PO (14:21)
--- NOTE | 2023-02-22 14:33 | PN.CC_ITS ---
Assessment & Plan Assessment/Plan (1) Acute UTI: (2) Septic shock due to urinary tract infection: (3) Apnea, sleep: QUALIFIERS: Sleep apnea type: unspecified type Qualified Code(s): G47.30 - Sleep apnea, unspecified (4) ROSELYN (acute kidney injury): PLAN: Plan RECOMMENDATIONS: * Heart rate remained stable. Will switch amnio drip to oral. CHADSVASC score of 4. Pt reports hx of A fib but she's not sure why she's not on AC. Continue heparin drip * She is almost off Levophed. Remains on midodrine 10 3 times daily * Echo showed preserved EF at 70% with Mild concentric left ventricular hypertrophy and normal RV function * Creatinine continues to improve we will continue to hold diuretics. fluid restriction to 1500cc * Tolerates BiPAP at night and 2 L via nasal cannula during the day * Cont merrem for ESBL UTI IMPRESSIONS: 1. Septic shock secondary to ESBL E. coli UTI Patient does have a UA suggestive of urinary tract infection. Given progression of hypotension following antibiotics, this would suggest a gram- negative etiology. Patient has been treated with Zosyn, but unfortunately this will not cover ESBL. Patient will be transitioned over to Merrem. Patient may decompensate with the change and require additional pressors. Will place PICC as previously discussed with the family 2. ROBBI with reported asthma Patient does have a baseline obstructive sleep apnea and reportedly is compliant with ROBBI therapy. Patient tolerated this well overnight. Patient is on Symbicort at home, but no pulmonary function tests are available for review. Budesonide therapeutic substitution likely appropriate. Cannot exclude the need for increased oxygen requirements overnight given fluid resuscitation. 3. Acute on chronic kidney disease stage III Clinical suspicion for prerenal etiology secondary to problem #1. Patient's baseline creatinine appears to be between 1.3 and 1.4. Continue with aggressive BP support. Patient does state that she doubts that she would be agreeable to dialysis at this time. Patient does not have any indication for renal replacement therapy, so we will hold off on nephrology consult for now. Patient did have significant hyperkalemia on presentation, but this may be secondary to acidosis. 4. Tinea cruris Patient does have significant breakdown. Patient has been initiated on nystatin powder. Could consider wound nurse evaluation moving forward. Patient does have some gram-positive coverage with Zosyn. 5. Hypernatremia/hyperchloremia Likely iatrogenic due to IV fluid infusion. These were stopped. Encourage p.o. water intake 6. A-fib with RVR Occured overnight 02/20 and she was started on heparin drip and amiodarone drip. CHADSVASC score of 4. Pt reports hx of A fib but she's not sure why she's not on AC. 7. Generalized weakness/morbid obesity/hypertension/hyperlipidemia/diabetes mellitus type 2/anemia/anxiety/advanced age/edema Complicates care, management, recovery and prognosis. Patient reportedly was recently placed on Lasix secondary to lower extremity edema. This, and antihypertensives, has been held secondary to problem #1 and #3. Would use benzodiazepines sparingly as patient is at risk for the development of delirium. Will attempt to discuss with patient and family later today about goals of therapy regarding central line and CODE STATUS. Subjective Subjective No acute events. Heart rate has been stable and amnio drip. Will switch to oral. Patient was complaining of mild headache improved with Tylenol Objective Data Objective Data Vital Signs: Vital Signs Temp Pulse Resp BP Pulse Ox O2 Del Method O2 Flow Rate 36.7 C 72 20 H 132/72 H 94 Nasal Cannula 2 02/22/23 09:11 02/22/23 09:11 02/22/23 09:11 02/22/23 09:30 02/22/23 09:11 02/22/23 09:11 02/22/23 09:11 FiO2 29 02/20/23 07:38 Oxygen Flow Rate (L/min) 2 Oxygen Delivery Method Nasal Cannula Weight: 166 kg Body Mass Index (BMI) 55.4 Intake & Output: Intake and Output for Last 24 Hours 02/20/23 02/21/23 02/22/23 23:59 23:59 23:59 Intake Total 2808.93 / 2818.33 2054.95 / 2056.35 619.29 / 619.29 Output Total 1300 / 1800 1975 / 2475 925 / 925 Balance 1508.93 / 1018.33 79.95 / -418.65 -305.71 / -305.71 Lab / Micro Data 02/22/23 05:40 02/22/23 05:40 Labs: Laboratory Results - last 24 hr 02/21/23 16:15: APTT 37.2 H 02/21/23 22:50: APTT 53.9 H 02/22/23 05:40: WBC 9.0, RBC 3.68 L, Hgb 10.9 L, Hct 35.4 L, MCV 96.2, MCH 29.6, MCHC 30.8 L, RDW Std Deviation 54.7 H, RDW Coeff of Ruben 15.6 H, Plt Count 151, MPV 10.9, Immature Gran % (Auto) 4.000 H, Neut % (Auto) 66.7, Lymph % (Auto) 10.8 L, [place] % (Auto) 11.3 H, Eos % (Auto) 6.4 H, Baso % (Auto) 0.8, Absolute Neuts (auto) 6.0, Absolute Lymphs (auto) 0.97, Nucleated RBC % 0, APTT 43.0 H, Sodium 147 H, Potassium 4.6, Chloride 120 H, Carbon Dioxide 23.0, Anion Gap 4 L, BUN 58 H, Creatinine 3.22 H, Estim Creat Clear Calc 14.99, Est GFR (MDRD) Af Amer 18 L, Est GFR (MDRD) Non-Af 15 L, BUN/Creatinine Ratio 18.0, Glucose 124 H, Calcium 9.0 02/22/23 06:45: Ionized Calcium 5.25 H Micro: Microbiology 02/17/23 19:35 Blood Culture (Wb) - Left Hand Blood Culture - Preliminary No growth in 48 hours. 02/17/23 19:35 Blood Culture (Wb) - Anticubital Left Blood Culture - Preliminary No growth in 48 hours. 02/17/23 19:05 Urine Catheter - [place] Urine Culture - Final ESBL Escherichia coli ABG Data ABG results: ABG 02/22/23 06:45 VBG Carboxyhemoglobin 3.0 H Radiography Diagnostic Testing: Radiology Impression Echocardiogram 02/21/23 15:55 Interpretation Summary Mild concentric left ventricular hypertrophy. The left ventricular ejection fraction is 70 %. Diastolic function is indeterminate. Moderate aortic stenosis. There is severe biatrial dilatation. Ordering Physician: Justin Bui Referring Physician: Sandrine Mireles Performed By: Tesha Evans, AYSE, RVT Physical Exam Narrative General alert oriented in no acute distress Respiratory distant breath sounds, no wheezing Cardiac distant cardiac sounds, S1-S2 GI abdomen is obese, soft and nontender MSK 1+ b.l lower extremity edema Neuro moves all extremities, no dysarthria, no facial droop Charges/Coding Visit Charges Inpatient E&M: 39896 Subs Hosp L3
--- NOTE | 2023-02-22 14:54 | CASEMGMT ---
Addendum entered by Lauryn Lamb 02/22/23 16:26: Social Work Referrals sent to [facility] and to [facility]. SW did not send referral yet to [facility] TCU as unclear as to which facility this is, will need to follow up again w/pt's daughter. LINDA Bender Original Note: Social Work SW spoke w/pt and daughter in room. SW let them know TCU cannot take pt due to her weight and extent of care. Daughter expressing much disappointment with this decision and stating to not understand it. SW offered support. After much discussion, she is agreeable to a referral to [facility], [facility] in [place], and a TCU in the main [facility]. SW will send referrals today as time allows. LINDA Bender
[2023-02-22 15:07] LABS: Partial Thromboplast Time 49.8 Seconds (24.1-36.2)
[2023-02-22] MEDS: Amiodarone 200 MG Tablet PO (17:46)
--- NOTE | 2023-02-22 18:37 | PN.RENAL_ITS ---
Subjective Subjective Following for ROSELYN on CKD. The patient complains of dyspnea especially with exertion. There is no chest pain, nausea, vomiting, or diarrhea. Appetite remains marginal. Objective Data Objective Data Vital Signs: Vital Signs Temp Pulse Resp BP Pulse Ox O2 Del Method O2 Flow Rate 98.3 F 71 22 H 112/58 L 94 Nasal Cannula 2.5 02/22/23 12:00 02/22/23 15:00 02/22/23 14:00 02/22/23 14:00 02/22/23 15:20 02/22/23 15:01 02/22/23 15:20 FiO2 29 02/20/23 07:38 Oxygen Flow Rate (L/min) 2.5 Oxygen Delivery Method Nasal Cannula Weight: 166 kg Body Mass Index (BMI) 55.4 Intake & Output: Intake and Output for Last 24 Hours 02/20/23 02/21/23 02/22/23 23:59 23:59 23:59 Intake Total 2808.93 / 2818.33 2054.95 / 2056.35 855.57 / 855.57 Output Total 1300 / 1800 1975 / 2475 2024 / 2024 Balance 1508.93 / 1018.33 79.95 / -418.65 -1169.43 / -1169.43 Lab / Micro Data 02/22/23 05:40 02/22/23 05:40 Labs: Laboratory Results - last 24 hr 02/21/23 22:50: APTT 53.9 H 02/22/23 05:40: WBC 9.0, RBC 3.68 L, Hgb 10.9 L, Hct 35.4 L, MCV 96.2, MCH 29.6, MCHC 30.8 L, RDW Std Deviation 54.7 H, RDW Coeff of Ruben 15.6 H, Plt Count 151, MPV 10.9, Immature Gran % (Auto) 4.000 H, Neut % (Auto) 66.7, Lymph % (Auto) 10.8 L, [place] % (Auto) 11.3 H, Eos % (Auto) 6.4 H, Baso % (Auto) 0.8, Absolute Neuts (auto) 6.0, Absolute Lymphs (auto) 0.97, Nucleated RBC % 0, APTT 43.0 H, Sodium 147 H, Potassium 4.6, Chloride 120 H, Carbon Dioxide 23.0, Anion Gap 4 L, BUN 58 H, Creatinine 3.22 H, Estim Creat Clear Calc 14.99, Est GFR (MDRD) Af Amer 18 L, Est GFR (MDRD) Non-Af 15 L, BUN/Creatinine Ratio 18.0, Glucose 124 H, Calcium 9.0 02/22/23 06:45: Ionized Calcium 5.25 H 02/22/23 14:49: APTT 49.8 H Micro: Microbiology 02/17/23 19:35 Blood Culture (Wb) - Left Hand Blood Culture - Preliminary No growth in 48 hours. 02/17/23 19:35 Blood Culture (Wb) - Anticubital Left Blood Culture - Preliminary No growth in 48 hours. 02/17/23 19:05 Urine Catheter - [place] Urine Culture - Final ESBL Escherichia coli ABG Data ABG results: ABG 02/22/23 06:45 VBG Carboxyhemoglobin 3.0 H Radiography Diagnostic Testing: Radiology Impression Echocardiogram 02/21/23 15:55 Interpretation Summary Mild concentric left ventricular hypertrophy. The left ventricular ejection fraction is 70 %. Diastolic function is indeterminate. Moderate aortic stenosis. There is severe biatrial dilatation. Ordering Physician: Justin Bui Referring Physician: Sandrine Mireles Performed By: Tesha Evans, HAICS, RVT Physical Exam Narrative Alert awake oriented x 3 no obvious distress Normal s1s2. There is 2/6 systolic murmur lungs clear anteriorly abdomen is obese, soft, rounded, positive bowel sounds no pitting edema lincoln + Assessment & Plan Assessment/Plan (1) ROSELYN (acute kidney injury): PLAN: - Nonoliguric acute renal failure superimposed on CKD stage IIIa (baseline SCr ~1.3-1.5). Presumably due to severe sepsis. Creatinine was 3.7 on admission, peaked 4.2 on 02/20/2023 and today serum creatinine 3.22. 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 Volume status acceptable. No acidemia or hyperkalemia. Hypernatremia persists but stable. - Ecoli UTI, on meropenem. BC final pending - some improvement in BPs, on levophed, also on midodrine. urine output 1.97 L yesterday. Patient is net positive, off maintenance IVF. Off bipap, on nasal cannula.
[2023-02-22] MEDS: Albuterol 2.5 MG/3 ML VIAL.NEB. INHALATION (20:00)
[2023-02-22 22:05] LABS: Partial Thromboplast Time 49.3 Seconds (24.1-36.2)
[2023-02-22] MEDS: HEPARIN/D5w 25,000 UNITS 25,000 UNITS/250 ML IV.SOLN. 13 UNITS CONT INF (23:06)
[2023-02-23] VITALS (15 sets, daily range): BP systolic 114–160; BP diastolic 46–82; PULSE 68–121; RESP 16–24; TEMP 36.6–37; O2SAT 92–98; BMI 56.1
[2023-02-23 04:42] LABS: Hematocrit 34.9 % (37-47); Hemoglobin 10.8 g/dL (12.0-15.0); Mean Corp Hgb Conc 30.9 g/dL (32-36); Mean Corpuscular Hgb 29.7 pg (27.0-32.0); Mean Corpuscular Volume 95.9 fL (81-99); Mean Platelet Vol. 11.7 fl (6.2-12.0); POSITIVE COUNT YES; POSITIVE MORPHOLOGY YES; Platelet Count 158 K/mm3 (150-450); RBC Distribution Width CV 15.5 % (11.6-14.6); RBC Distribution Width SD 53.2 fl (35.1-43.9); Red Blood Count 3.64 M/mm3 (4.2-5.4); White Blood Count 9.2 K/mm3 (4.4-11.0)
[2023-02-23 04:59] LABS: Anion Gap 4 (5-15); BUN 51 mg/dL (7-18); BUN/Creat Ratio 19.2 RATIO (10-20); Calcium,Total 9.2 mg/dL (8.5-10.1); Chloride 120 mmol/L (98-107); Creatinine, Serum 2.65 mg/dL (0.55-1.02); EST Glomerular Filtration Rate 19 mL/min (>60); Est Glom Filt Rate - Afr Amer 23 mL/min (>60); Estimated Creatinine Clearance 18.22 ml/min; Glucose 95 mg/dL (74-106); Partial Thromboplast Time 55.2 Seconds (24.1-36.2); Potassium 4.6 mmol/L (3.5-5.1); Sodium Level 148 mmol/L (136-145)
[2023-02-23 05:07] LABS: Differential Indicated MANUAL DIFF
[2023-02-23 06:04] LABS: Eosinophil 8 % (0-5); Lymphocyte 9 % (19-41); Metamyelocyte 2 % (0-1); Monocyte 8 % (0-10); Neutrophil-Band 2 % (0-5); Neutrophil-Segmented 71 % (47-70); Total Cells Counted 100 (MANUAL DIFF)
[2023-02-23 06:05] LABS: Platelet Estimate ADEQUATE (ADEQ); Red Cell Morphology NORM C+C NORMAL (NORM C&C)
--- NOTE | 2023-02-23 07:06 | PN.HOSP_ITS ---
Reason for Visit Reason for Visit: Diagnoses Sepsis, unspecified organism (02/17/23) Sleep apnea, unspecified (02/17/23) Acute kidney failure, unspecified (02/17/23) Urinary tract infection, site not specified (02/17/23) Severe sepsis without septic shock (02/17/23) Severe sepsis with septic shock (02/17/23) Subjective Subjective Patient seen remains in the ICU. Patient has been weaned off Levophed currently on midodrine blood pressure appears stable. WBC count down kidney function continues to improve. Patient sodium level still remains elevated. Plan is for patient to be transferred from the ICU to PCU Objective Data Objective Data Vital Signs: Vital Signs Temp Pulse Resp BP Pulse Ox O2 Del Method O2 Flow Rate 98.1 F 79 20 H 124/46 H 96 Bi-pap 2 02/23/23 04:00 02/23/23 04:55 02/23/23 04:55 02/23/23 04:55 02/23/23 04:55 02/23/23 04:55 02/23/23 04:55 FiO2 29 02/20/23 07:38 Oxygen Flow Rate (L/min) 2 Oxygen Delivery Method Bi-pap Weight: 167.4 kg Body Mass Index (BMI) 56.1 Intake & Output: Intake and Output for Last 24 Hours 02/21/23 02/22/23 02/23/23 23:59 23:59 23:59 Intake Total 2054.95 / 2056.35 1244.82 / 1344.82 598.43 / 598.43 Output Total 1975 / 2475 2225 / 2725 1050 / 1050 Balance 79.95 / -418.65 -980.18 / -1380.18 -451.57 / -451.57 Lab / Micro Data 02/23/23 04:35 02/23/23 04:35 Labs: Laboratory Results - last 24 hr 02/22/23 14:49: APTT 49.8 H 02/22/23 21:50: APTT 49.3 H 02/23/23 04:35: WBC 9.2, RBC 3.64 L, Hgb 10.8 L, Hct 34.9 L, MCV 95.9, MCH 29.7, MCHC 30.9 L, RDW Std Deviation 53.2 H, RDW Coeff of Ruben 15.5 H, Plt Count 158, MPV 11.7, Neut % (Auto) Not Reportable, Total Counted 100, Neutrophils % (Manual) 71 H, Band Neutrophils % 2, Lymphocytes % (Manual) 9 L, Monocytes % (Manual) 8, Eosinophils % (Manual) 8 H, Metamyelocytes % 2 H, Diff Path Review May foll, Platelet Estimate ADEQUATE, RBC Morphology NORM C+C, APTT 55.2 H, Sodium 148 H, Potassium 4.6, Chloride 120 H, Carbon Dioxide 24.0, Anion Gap 4 L, BUN 51 H, Creatinine 2.65 H, Estim Creat Clear Calc 18.22, Est GFR (MDRD) Af Amer 23 L, Est GFR (MDRD) Non-Af 19 L, BUN/Creatinine Ratio 19.2, Glucose 95, Calcium 9.2 02/23/23 04:42: Ionized Calcium 5.30 H Micro: Microbiology 02/17/23 19:35 Blood Culture (Wb) - Left Hand Blood Culture - Final No growth in 5 days. 02/17/23 19:35 Blood Culture (Wb) - Anticubital Left Blood Culture - Final No growth in 5 days. 02/17/23 19:05 Urine Catheter - Croft Urine Culture - Final ESBL Escherichia coli Radiography Diagnostic Testing: Radiology Impression Echocardiogram 02/21/23 15:55 Interpretation Summary Mild concentric left ventricular hypertrophy. The left ventricular ejection fraction is 70 %. Diastolic function is indeterminate. Moderate aortic stenosis. There is severe biatrial dilatation. Ordering Physician: Justin Bui Referring Physician: Sandrine Mireles Performed By: Tesha Evans, AYSE, RVT Physical Exam Narrative GENERAL: cooperative HEENT: Atraumatic; normocephalic EYES; Anicteric, Normal Conjunctiva NECK; supple, normal thyroid, RESPIRATORY: Diminished to auscultation CARDIOVASCULAR: Regular S1 S2, GI: soft, normoactive bowel sounds, : No Renal angle tenderness; EXTREMITIES: edema, no clubbing, MUSCULOSKELETAL: no muscle wasting NEURO: Awake; no lateralizing signs. SKIN: No Rash PSYCH; Flat affect Assessment & Plan Assessment/Plan (1) Severe sepsis: (2) Acute UTI: (3) ROSELYN (acute kidney injury): PLAN: Plan Patient is a 77-year-old lady with multiple comorbidities admitted with progressive generalized weakness and assessment of septic shock secondary to acute cystitis made admitted to the intensive care unit where patient has since been managed 1. Septic shock ? Secondary to ESBL E. coli. Admitted to the intensive care unit patient managed with broad-spectrum antibiotic therapy with meropenem as well as pressors with norepinephrine. ? 02/21/2023;Patient remains hypotensive in the ICU patient remains on Levophed. Midodrine added to patient treatment. ? 02/22/2023; patient remains on pressor support with Levophed. ? 02/23/2023; patient Levophed has been weaned off. Remains on broad-spectrum antibiotic therapy WBC count down. 2. Acute kidney injury -Patient has a baseline creatinine between 1.1 and 1.4, creatinine on admission was 3.73. Patient kidney function continues to worsen up to 4.26. Consult placed to nephrology ? 02/21/2023 creatinine down to 3.81 ? 02/22/2023; creatinine down to 3.22 ? 02/23/2023; creatinine down to 2.65 3. Class III obesity with BMI of 55.3 ? Complicating care, weight loss advised 4. Hyperkalemia ? Patient potassium supplement discontinued 5. Dyslipidemia -Patient is on statin therapy, continued at home dose 6. Depression with anxiety ? Patient is on fluoxetine as well as lorazepam as needed 7. GERD ? Patient is on PPI did continue 8. Obstructive sleep apnea ? PAP therapy at night 9. Hypernatremia ? Secondary to aggressive IV fluid resuscitation with saline this has been transitioned to Ringer's lactate with subsequent monitoring of electrolytes ordered ? 02/21/2023 sodium level up to 148 chloride 120, patient fluid had been adjusted the day prior ? 02/22/2023; sodium levels remained elevated at 147 patient started on 0.45 s jesika. ? 02/23/2023 sodium levels remain elevated at 148 10. Diabetes mellitus type 2 ? Currently managed with diet please on Accu-Cheks before meals and at bedtime with sliding scale coverage 10. Paroxysmal A-fib ? Rate controlled on metoprolol 11. History of Spinal osteomyelitis underwent T12 an L1 corpectomy at the [facility] in 2014 12. Anemia - Secondary to chronic disorder monitoring H&H and transfuse if patient becomes symptomatic or hemoglobin falls below 7 13. DVT prophylaxis ? SC heparin Time spent in the patient's overall evaluation,decision-making process, review of diagnostic data, adjustment of management, discussion with other providers, nursing nursing and ancillary staff involved in patient's care documentation, 50 Minutes Charges/Coding Visit Charges Inpatient E&M: 27132 Subs Hosp L3
[2023-02-23] MEDS: Budesonide Respules 0.5 MG/2 ML AMPUL.NEB. INHALATION ×2 (07:32→19:47)
[2023-02-23] MEDS: Midodrine HCl 5 MG Tablet 10 MG PO (07:55)
[2023-02-23] MEDS: Amiodarone 200 MG Tablet PO (10:15)
[2023-02-23] MEDS: FLUoxetine 20 MG Capsule PO (10:16)
[2023-02-23] MEDS: Ergocalciferol 1.25 MG (50, 000 UNIT) Capsule PO (10:16)
[2023-02-23] MEDS: Senna/Docusate Sodium 1 Tablet PO (10:16)
[2023-02-23] MEDS: Pantoprazole Sodium 40 MG Tablet PO (10:16)
[2023-02-23] MEDS: Zinc Sulfate 50 mg zinc (220 mg) ORAL capsule PO (10:16)
[2023-02-23] MEDS: Polyethylene Glycol 3350 17 GM PACKET 34 GM PO (10:17)
[2023-02-23] MEDS: Folic Acid/Vitamin B Comp W-C 1 Capsule 1 CAP PO (10:18)
[2023-02-23] MEDS: Meropenem 1 GM in 0.9% Normal Saline (100mL MB+) 100 ML IV ×2 (10:27→21:28)
[2023-02-23] MEDS: Gabapentin 100 MG Capsule PO ×2 (10:28→21:28)
[2023-02-23 11:06] LABS: Partial Thromboplast Time 58.1 Seconds (24.1-36.2)
[2023-02-23 12:39] LABS: Ionized Calcium Order ORDER TUBE
[2023-02-23] MEDS: Midodrine HCl 5 MG Tablet PO ×2 (13:00→17:43)
--- NOTE | 2023-02-23 13:06 | PN.CC_ITS ---
Assessment & Plan Assessment/Plan (1) Acute UTI: (2) Septic shock due to urinary tract infection: (3) Apnea, sleep: QUALIFIERS: Sleep apnea type: unspecified type Qualified Code(s): G47.30 - Sleep apnea, unspecified (4) ROSELYN (acute kidney injury): PLAN: Plan RECOMMENDATIONS: * Heart rate remained stable. tolerating PO amio. If her BP remains stable a Beta ashanti can be added. CHADSVASC score of 4. Pt reports hx of A fib but she's not sure why she's not on AC. Continue heparin drip * BP improving. Weaning midodrine and can be d/gabriella soon if her bp remains stable. Beta ashanti can then be added for her a fib * Echo showed preserved EF at 70% with Mild concentric left ventricular hypertrophy and normal RV function * Creatinine continues to improve we will continue to hold diuretics. fluid restriction to 1500cc * Tolerates BiPAP at night and 2 L via nasal cannula during the day * Cont merrem for ESBL UTI * Pt will be transferred to the floor IMPRESSIONS: 1. Septic shock secondary to ESBL E. coli UTI- resolved cont merrem 2. ROBBI with reported asthma Patient does have a baseline obstructive sleep apnea and reportedly is compliant with ROBBI therapy. Patient tolerated this well overnight. Patient is on Symbicort at home, but no pulmonary function tests are available for review. Budesonide therapeutic substitution likely appropriate. Cannot exclude the need for increased oxygen requirements overnight given fluid resuscitation. 3. Acute on chronic kidney disease stage III Clinical suspicion for prerenal etiology secondary to problem #1. Patient's baseline creatinine appears to be between 1.3 and 1.4. Continue with aggressive BP support. Patient does state that she doubts that she would be agreeable to dialysis at this time. Patient does not have any indication for renal replacement therapy, so we will hold off on nephrology consult for now. Patient did have significant hyperkalemia on presentation, but this may be sec ondary to acidosis. 4. Tinea cruris Patient does have significant breakdown. Patient has been initiated on nystatin powder. Could consider wound nurse evaluation moving forward. Patient does have some gram-positive coverage with Zosyn. 5. Hypernatremia/hyperchloremia Likely iatrogenic due to IV fluid infusion. These were stopped. 6. A-fib with RVR Occured overnight 02/20 and she was started on heparin drip and amiodarone drip. CHADSVASC score of 4. Pt reports hx of A fib but she's not sure why she's not on AC. 7. Generalized weakness/morbid obesity/hypertension/hyperlipidemia/diabetes mellitus type 2/anemia/anxiety/advanced age/edema Complicates care, management, recovery and prognosis. Patient reportedly was recently placed on Lasix secondary to lower extremity edema. This, and antihypertensives, has been held secondary to problem #1 and #3. Would use benzodiazepines sparingly as patient is at risk for the development of delirium. Will attempt to discuss with patient and family later today about goals of therapy regarding central line and CODE STATUS. Subjective Subjective He doing better. She is off Levophed. She will be transferred to the floor Objective Data Objective Data Vital Signs: Vital Signs Temp Pulse Resp BP Pulse Ox O2 Del Method O2 Flow Rate 36.6 C 69 24 H 139/58 H 95 Nasal Cannula 2 02/23/23 09:00 02/23/23 09:00 02/23/23 09:00 02/23/23 09:00 02/23/23 09:00 02/23/23 09:00 02/23/23 09:00 FiO2 29 02/20/23 07:38 Oxygen Flow Rate (L/min) 2 Oxygen Delivery Method Nasal Cannula Weight: 167.4 kg Body Mass Index (BMI) 56.1 Intake & Output: Intake and Output for Last 24 Hours 02/21/23 02/22/23 02/23/23 23:59 23:59 23:59 Intake Total 2054.95 / 2056.35 1244.82 / 1344.82 598.43 / 598.43 Output Total 1974 / 2475 2225 / 2725 1050 / 1050 Balance 79.95 / -418.65 -980.18 / -1380.18 -451.57 / -451.57 Lab / Micro Data 02/23/23 04:35 02/23/23 04:35 Labs: Laboratory Results - last 24 hr 02/22/23 14:49: APTT 49.8 H 02/22/23 21:50: APTT 49.3 H 02/23/23 04:35: WBC 9.2, RBC 3.64 L, Hgb 10.8 L, Hct 34.9 L, MCV 95.9, MCH 29.7, MCHC 30.9 L, RDW Std Deviation 53.2 H, RDW Coeff of Ruben 15.5 H, Plt Count 158, MPV 11.7, Neut % (Auto) Not Reportable, Total Counted 100, Neutrophils % (M anual) 71 H, Band Neutrophils % 2, Lymphocytes % (Manual) 9 L, Monocytes % (Manual) 8, Eosinophils % (Manual) 8 H, Metamyelocytes % 2 H, Diff Path Review June, Platelet Estimate ADEQUATE, RBC Morphology NORM C+C, APTT 55.2 H, Sodium 148 H, Potassium 4.6, Chloride 120 H, Carbon Dioxide 24.0, Anion Gap 4 L, BUN 51 H, Creatinine 2.65 H, Estim Creat Clear Calc 18.22, Est GFR (MDRD) Af Amer 23 L, Est GFR (MDRD) Non-Af 19 L, BUN/Creatinine Ratio 19.2, Glucose 95, Calcium 9.2 02/23/23 04:42: Ionized Calcium 5.30 H 02/23/23 10:40: APTT 58.1 H Micro: Microbiology 02/17/23 19:35 Blood Culture (Wb) - Left Hand Blood Culture - Final No growth in 5 days. 02/17/23 19:35 Blood Culture (Wb) - Anticubital Left Blood Culture - Final No growth in 5 days. 02/17/23 19:05 Urine Catheter - [place] Urine Culture - Final ESBL Escherichia coli Radiography Diagnostic Testing: Radiology Impression Echocardiogram 02/21/23 15:55 Interpretation Summary Mild concentric left ventricular hypertrophy. The left ventricular ejection fraction is 70 %. Diastolic function is indeterminate. Moderate aortic stenosis. There is severe biatrial dilatation. Ordering Physician: Justin Bui Referring Physician: Sandrine Mireles Performed By: Tesha Evans, HAICS, RVT Physical Exam Narrative General alert oriented in no acute distress Respiratory distant breath sounds, no wheezing Cardiac distant cardiac sounds, S1-S2 GI abdomen is obese, soft and nontender MSK 1+ b.l lower extremity edema Neuro moves all extremities, no dysarthria, no facial droop Charges/Coding Visit Charges Inpatient E&M: 34626 Init Hosp L3
[2023-02-23] MEDS: Ascorbic Acid 500 MG Tablet 1000 MG PO (17:44)
[2023-02-23] MEDS: HEPARIN/D5w 25,000 UNITS 25,000 UNITS/250 ML IV.SOLN. 13 UNITS CONT INF (18:09)
[2023-02-23] MEDS: Albuterol 2.5 MG/3 ML VIAL.NEB. INHALATION (20:06)
[2023-02-23 21:48] LABS: Absolute Lymphocyte Count 0.82 X10^3/uL (0.83-4.51); Absolute Neutrophil Count 6.7 X10^3/uL (2.0-7.7)
[2023-02-24] VITALS (9 sets, daily range): BP systolic 149–162; BP diastolic 60–65; PULSE 71–87; RESP 16–20; TEMP 36.6; O2SAT 92–97; BMI 55.9
[2023-02-24] MEDS: Acetaminophen 325 MG Tablet 650 MG PO ×2 (05:26→16:04)
[2023-02-24 06:01] LABS: Hematocrit 35.1 % (37-47); Hemoglobin 10.8 g/dL (12.0-15.0); Mean Corp Hgb Conc 30.8 g/dL (32-36); Mean Corpuscular Hgb 29.3 pg (27.0-32.0); Mean Corpuscular Volume 95.4 fL (81-99); Mean Platelet Vol. 11.7 fl (6.2-12.0); POSITIVE COUNT YES; POSITIVE MORPHOLOGY YES; Platelet Count 150 K/mm3 (150-450); RBC Distribution Width CV 15.5 % (11.6-14.6); RBC Distribution Width SD 53.2 fl (35.1-43.9); Red Blood Count 3.68 M/mm3 (4.2-5.4); White Blood Count 8.3 K/mm3 (4.4-11.0)
[2023-02-24 06:23] LABS: Partial Thromboplast Time 63.2 Seconds (24.1-36.2)
[2023-02-24 06:26] LABS: Differential Indicated MANUAL DIFF
[2023-02-24 06:28] LABS: Anion Gap 4 (5-15); BUN 46 mg/dL (7-18); BUN/Creat Ratio 23.7 RATIO (10-20); Calcium,Total 9.4 mg/dL (8.5-10.1); Chloride 120 mmol/L (98-107); Creatinine, Serum 1.94 mg/dL (0.55-1.02); EST Glomerular Filtration Rate 27 mL/min (>60); Est Glom Filt Rate - Afr Amer 32 mL/min (>60); Estimated Creatinine Clearance 24.89 ml/min; Glucose 103 mg/dL (74-106); Magnesium 1.8 mg/dL (1.6-2.6); Phosphorus 3.4 mg/dL (2.5-4.9); Potassium 4.4 mmol/L (3.5-5.1); Sodium Level 148 mmol/L (136-145)
[2023-02-24 07:24] LABS: Eosinophil 8 % (0-5); Lymphocyte 23 % (19-41); Metamyelocyte 4 % (0-1); Monocyte 1 % (0-10); Neutrophil-Band 3 % (0-5); Neutrophil-Segmented 61 % (47-70); Total Cells Counted 100 (MANUAL DIFF)
[2023-02-24 07:25] LABS: Anisocytosis 1+; Platelet Estimate ADEQUATE (ADEQ); Red Cell Morphology N CHROM NORMAL (NORM C&C)
[2023-02-24 07:26] LABS: Absolute Neutrophil Count 5.3 X10^3/uL (2.0-7.7)
--- NOTE | 2023-02-24 08:39 | PCM.PN.HOSP ---
Reason for Visit Reason for Visit: Diagnoses Sepsis, unspecified organism (02/17/23) Sleep apnea, unspecified (02/17/23) Acute kidney failure, unspecified (02/17/23) Urinary tract infection, site not specified (02/17/23) Severe sepsis without septic shock (02/17/23) Severe sepsis with septic shock (02/17/23) Subjective Subjective Patient seen, was transferred from the intensive care unit to the progressive care unit the day prior. Patient seen creatinine continues to improve WBC count remains stable sodium remains elevated at 148. Patient blood pressure markedly improved patient was started on midodrine subsequently discontinued Objective Data Objective Data Vital Signs: Vital Signs Temp Pulse Resp BP Pulse Ox O2 Del Method O2 Flow Rate 97.8 F 71 18 162/60 H 95 CPAP 2 02/24/23 04:00 02/24/23 04:00 02/24/23 04:00 02/24/23 04:00 02/24/23 04:00 02/24/23 04:00 02/24/23 04:00 FiO2 29 02/20/23 07:38 Oxygen Flow Rate (L/min) 2 Oxygen Delivery Method CPAP Weight: 166.8 kg Body Mass Index (BMI) 55.9 Intake & Output: Intake and Output for Last 24 Hours 02/22/23 02/23/23 02/24/23 23:59 23:59 23:59 Intake Total 1244.82 / 1344.82 1637.64 / 1637.64 104.5 / 104.5 Output Total 2225 / 2725 2000 / 3150 1150 / 1150 Balance -980.18 / -1380.18 -362.36 / -1512.36 -1045.5 / -1045.5 Lab / Micro Data 02/24/23 05:22 02/24/23 05:22 Labs: Laboratory Results - last 24 hr 02/23/23 04:35: Absolute Neuts (auto) 6.7, Absolute Lymphs (auto) 0.82 L 02/23/23 10:40: APTT 58.1 H 02/24/23 05:22: WBC 8.3, RBC 3.68 L, Hgb 10.8 L, Hct 35.1 L, MCV 95.4, MCH 29.3, MCHC 30.8 L, RDW Std Deviation 53.2 H, RDW Coeff of Ruben 15.5 H, Plt Count 150, MPV 11.7, Neut % (Auto) Not Reportable, Absolute Neuts (auto) 5.3, Absolute Lymphs (auto) 1.90, Total Counted 100, Neutrophils % (Manual) 61, Band Neutrophils % 3, Lymphocytes % (Manual) 23, Monocytes % (Manual) 1, Eosinophils % (Manual) 8 H, Metamyelocytes % 4 H, Diff Path Review June, Platelet Estimate ADEQUATE, RBC Morphology N CHROM, Anisocytosis 1+, APTT 63.2 H, Sodium 148 H, Potassium 4.4, Chloride 120 H, Carbon Dioxide 24.0, Anion Gap 4 L, BUN 46 H, Creatinine 1.94 H, Estim Creat Clear Calc 24.89, Est GFR (MDRD) Af Amer 32 L, Est GFR (MDRD) Non-Af 27 L, BUN/Creatinine Ratio 23.7 H, Glucose 103, Calcium 9.4, Phosphorus 3.4, Magnesium 1.8 Micro: Microbiology 02/17/23 19:35 Blood Culture (Wb) - Left Hand Blood Culture - Final No growth in 5 days. 02/17/23 19:35 Blood Culture (Wb) - Anticubital Left Blood Culture - Final No growth in 5 days. 02/17/23 19:05 Urine Catheter - [place] Urine Culture - Final ESBL Escherichia coli Physical Exam Narrative GENERAL: cooperative HEENT: Atraumatic; normocephalic EYES; Anicteric, Normal Conjunctiva NECK; supple, normal thyroid, RESPIRATORY: Diminished to auscultation CARDIOVASCULAR: Regular S1 S2, GI: soft, normoactive bowel sounds, : No Renal angle tenderness; EXTREMITIES: edema, no clubbing, MUSCULOSKELETAL: no muscle wasting NEURO: Awake; no lateralizing signs. SKIN: No Rash PSYCH; Flat affect Assessment & Plan Assessment/Plan (1) Severe sepsis: (2) Acute UTI: (3) ROSELYN (acute kidney injury): PLAN: Plan Patient is a 77-year-old lady with multiple comorbidities admitted with progressive generalized weakness and assessment of septic shock secondary to acute cystitis made admitted to the intensive care unit where patient has since been managed 1. Septic shock ? Secondary to ESBL E. coli. Admitted to the intensive care unit patient managed with broad-spectrum antibiotic therapy with meropenem as well as pressors with norepinephrine. ? 02/21/2023;Patient remains hypotensive in the ICU patient remains on Levophed. Midodrine added to patient treatment. ? 02/22/2023; patient remains on pressor support with Levophed. ? 02/23/2023; patient Levophed has been weaned off. Remains on broad-spectrum antibiotic therapy WBC count down. ? 02/24/2023; patient remains stable 2. Acute kidney injury -Patient has a baseline creatinine between 1.1 and 1.4, creatinine on admission was 3.73. Patient kidney function continues to worsen up to 4.26. Consult placed to nephrology ? 02/21/2023 creatinine down to 3.81 ? 02/22/2023; creatinine down to 3.22 ? 02/23/2023; creatinine down to 2.65 ? 02/24/2023; creatinine down to 1.95 3. Class III obesity with BMI of 55.3 ? Complicating care, weight loss advised 4. Hyperkalemia ? Patient potassium supplement discontinued 5. Dyslipidemia -Patient is on statin therapy, continued at home dose 6. Depression with anxiety ? Patient is on fluoxetine as well as lorazepam as needed 7. GERD ? Patient is on PPI did continue 8. Obstructive sleep apnea ? PAP therapy at night 9. Hypernatremia ? Secondary to aggressive IV fluid resuscitation with saline this has been transitioned to Ringer's lactate with subsequent monitoring of electrolytes ordered ? 02/21/2023 sodium level up to 148 chloride 120, patient fluid had been adjusted the day prior ? 02/22/2023; sodium levels remained elevated at 147 patient started on 0.45 saline. ? 02/23/2023 sodium levels remain elevated at 148 ? 02/24/2023; sodium remains stable at 148 10. Diabetes mellitus type 2 ? Currently managed with diet please on Accu-Cheks before meals and at bedtime with sliding scale coverage 10. Paroxysmal A-fib ? Rate controlled on metoprolol ? 02/24/2023 patient was on heparin drip discontinued started on apixaban 2.5 11. History of Spinal osteomyelitis underwent T12 an L1 corpectomy at the [facility] in 2014 12. Anemia - Secondary to chronic disorder monitoring H&H and transfuse if patient becomes symptomatic or hemoglobin falls below 7 13. DVT prophylaxis ? SC heparin 14. Physical deconditioning - Requested for PT OT eval and social media intern to assist with discharge planning Time spent in the patient's overall evaluation,decision-making process, review of diagnostic data, adjustment of management, discussion with other providers, nursing nursing and ancillary staff involved in patient's care documentation, 50 Minutes Charges/Coding Visit Charges Inpatient E&M: 57910 Subs Hosp L3
--- NOTE | 2023-02-24 09:31 | CASEMGMT ---
Discharge Planning Both [facility] and [facility] declined referral. SW updated. April Bullock, Discharge Planning Asst.
--- NOTE | 2023-02-24 09:56 | CASEMGMT ---
SW met with patient. Introduced self and role at [facility]. SW explained [facility] have declined patient. Patient said SW will need to talk with her daughter to obtain more choices. Shana Francisco CRYSTALIZER DORON
[2023-02-24] MEDS: Meropenem 1 GM in 0.9% Normal Saline (100mL MB+) 100 ML IV ×2 (09:58→22:19)
[2023-02-24] MEDS: Polyethylene Glycol 3350 17 GM PACKET 34 GM PO (09:59)
[2023-02-24] MEDS: Folic Acid/Vitamin B Comp W-C 1 Capsule 1 CAP PO (10:01)
[2023-02-24] MEDS: FLUoxetine 20 MG Capsule PO (10:01)
[2023-02-24] MEDS: Pantoprazole Sodium 40 MG Tablet PO (10:01)
[2023-02-24] MEDS: Gabapentin 100 MG Capsule PO ×2 (10:01→22:19)
[2023-02-24] MEDS: Amiodarone 200 MG Tablet PO (10:02)
[2023-02-24] MEDS: Zinc Sulfate 50 mg zinc (220 mg) ORAL capsule PO (10:02)
--- NOTE | 2023-02-24 10:35 | CASEMGMT ---
BRETT attempted to call patient's daughter Neema on the 2 numbers listed on the demographics form. The first number had a full voice mailbox and the second number had no identifying information on the message. Patient said her daughter will be in sometime today after noon. Shana SAL
[2023-02-24] MEDS: APIXABAN 5 MG TABLET PO ×2 (10:49→22:19)
[2023-02-24] MEDS: 0.9% Saline Lock 10 ML Syringe IV (10:49)
[2023-02-24] MEDS: Senna/Docusate Sodium 1 Tablet PO (10:49)
--- NOTE | 2023-02-24 10:59 | PCM.PN.REN ---
Subjective Subjective Following for ROSELYN. Patient was transferred to regular nursing floor on 02/22/2023. She denies current chest pain. Shortness of breath is not any worse. There is no nausea or vomiting. Objective Data Objective Data Vital Signs: Vital Signs Temp Pulse Resp BP Pulse Ox O2 Del Method O2 Flow Rate 97.8 F 77 17 155/63 H 95 Nasal Cannula 2 02/24/23 09:50 02/24/23 09:50 02/24/23 09:50 02/24/23 09:50 02/24/23 09:50 02/24/23 10:14 02/24/23 10:14 FiO2 29 02/20/23 07:38 Oxygen Flow Rate (L/min) 2 Oxygen Delivery Method Nasal Cannula Weight: 166.8 kg Body Mass Index (BMI) 55.9 Intake & Output: Intake and Output for Last 24 Hours 02/22/23 02/23/23 02/24/23 23:59 23:59 23:59 Intake Total 1244.82 / 1344.82 1637.64 / 1637.64 321.17 / 321.17 Output Total 2225 / 2725 2000 / 3150 1150 / 1150 Balance -980.18 / -1380.18 -362.36 / -1512.36 -828.83 / -828.83 Lab / Micro Data 02/24/23 05:22 02/24/23 05:22 Labs: Laboratory Results - last 24 hr 02/23/23 04:35: Absolute Neuts (auto) 6.7, Absolute Lymphs (auto) 0.82 L 02/23/23 10:40: APTT 58.1 H 02/24/23 05:22: WBC 8.3, RBC 3.68 L, Hgb 10.8 L, Hct 35.1 L, MCV 95.4, MCH 29.3, MCHC 30.8 L, RDW Std Deviation 53.2 H, RDW Coeff of Ruben 15.5 H, Plt Count 150, MPV 11.7, Neut % (Auto) Not Reportable, Absolute Neuts (auto) 5.3, Absolute Lymphs (auto) 1.90, Total Counted 100, Neutrophils % (Manual) 61, Band Neutrophils % 3, Lymphocytes % (Manual) 23, Monocytes % (Manual) 1, Eosinophils % (Manual) 8 H, Metamyelocytes % 4 H, Diff Path Review May , Platelet Estimate ADEQUATE, RBC Morphology N CHROM, Anisocytosis 1+, APTT 63.2 H, Sodium 148 H, Potassium 4.4, Chloride 120 H, Carbon Dioxide 24.0, Anion Gap 4 L, BUN 46 H, Creatinine 1.94 H, Estim Creat Clear Calc 24.89, Est GFR (MDRD) Af Amer 32 L, Est GFR (MDRD) Non-Af 27 L, BUN/Creatinine Ratio 23.7 H, Glucose 103, Calcium 9.4, Phosphorus 3.4, Magnesium 1.8 Micro: Microbiology 02/17/23 19:35 Blood Culture (Wb) - Left Hand Blood Culture - Final No growth in 5 days. 02/17/23 19:35 Blood Culture (Wb) - Anticubital Left Blood Culture - Final No growth in 5 days. 02/17/23 19:05 Urine Catheter - [place] Urine Culture - Final ESBL Escherichia coli Physical Exam Narrative Alert awake oriented x 3 no obvious distress Normal s1s2. There is 2/6 systolic murmur lungs clear anteriorly abdomen is obese, soft, rounded, positive bowel sounds no pitting edema lincoln + Assessment & Plan Assessment/Plan (1) ROSELYN (acute kidney injury): PLAN: Impression/Plan: The patient is a 77-year-old woman with past history of type 2 diabetes mellitus, hypertension, COPD, ROBBI, atrial fibrillation, hyperlipidemia, osteoarthritis, and depression. Patient presented to hospital on 02/17/2023 with generalized weakness. She was subsequently diagnosed with UTI complicated by sepsis/circulatory shock. Nephrology is following for ROSELYN. Acute kidney injury. The patient has nonoliguric acute renal failure superimposed on CKD stage G3a (baseline serum creatinine has been ~1.3- 1.5 mg/dL prior to admission). ROSELYN is due to severe sepsis causing ischemic ATN. Creatinine was 3.7 mg/dL on admission on 02/17/2023, peaked 4.2 mg/dL on 02/20/2023. Renal function has gradually improved with supportive care and treatment of sepsis. She does not require kidney replacement therapy during this admission. Volume status is acceptable. There is no acidemia or hyperkalemia. Continue current supportive care, keeping MAP above 65 mmHg. Hypernatremia. Serum sodium is 148 mmol/L today. So, hypernatremia is mild. Hypernatremia is likely due to dehydration. She is not polyuric, so this is not DI. There is no diarrhea. Continue to encourage oral intake of fluid especially. When she is thirsty.
[2023-02-24 12:08] LABS: Pathologist Review Reviewed
[2023-02-24 12:15] LABS: Pathologist Review Reviewed
--- NOTE | 2023-02-24 13:20 | CASEMGMT ---
BRETT met with patient and her daughter Neema. BRETT told Neema that patient was declined by [facility]. Neema told SW they are private and skeptical about allowing people into their home. Neema asked if they rented an apartment are there agencies that would come into the home for therapy and care. BRETT explained Medicare coverage for home health and what is provided. SW also let them know there are private duty agencies that can provide care for a fee. Neema is not comfortable with the detention options. BRETT explained the big difference with patient going home and getting therapy is patient will only get it a couple of times a week. Whereas if patient were to go to a [facility] facility patient would get therapy 5-6 days a week. BRETT mentioned the 4 local facilities that do take bariatric patients. Neema asked BRETT to doroteo those facilities on the list. BRETT marked these facilities on the list and also provided patient and her daughter with a list of private duty agencies. SW to check back tomorrow. Shana Francisco ANAESTHESIOLOGIST DORON
[2023-02-24] MEDS: Albuterol 2.5 MG/3 ML VIAL.NEB. INHALATION ×2 (13:36→21:17)
--- NOTE | 2023-02-24 15:11 | WOUNDNOTE ---
wound photo: right posterior lower leg
--- NOTE | 2023-02-24 15:11 | WOUNDNOTE ---
wound photo: left posterior lower leg
--- NOTE | 2023-02-24 15:12 | WOUNDNOTE ---
wound photo: midline abdominal fold under pannus
[2023-02-24] MEDS: Budesonide Respules 0.5 MG/2 ML AMPUL.NEB. INHALATION (21:17)
[2023-02-25] VITALS (8 sets, daily range): BP systolic 133–177; BP diastolic 64–73; PULSE 71–87; RESP 16–20; TEMP 36.6–36.7; O2SAT 93–96; BMI 56.1
[2023-02-25 07:20] LABS: Hematocrit 33.4 % (37-47); Hemoglobin 10.2 g/dL (12.0-15.0); Mean Corp Hgb Conc 30.5 g/dL (32-36); Mean Corpuscular Hgb 29.1 pg (27.0-32.0); Mean Corpuscular Volume 95.2 fL (81-99); Mean Platelet Vol. 11.7 fl (6.2-12.0); POSITIVE COUNT YES; POSITIVE MORPHOLOGY YES; Platelet Count 135 K/mm3 (150-450); RBC Distribution Width CV 15.8 % (11.6-14.6); RBC Distribution Width SD 52.5 fl (35.1-43.9); Red Blood Count 3.51 M/mm3 (4.2-5.4); White Blood Count 7.6 K/mm3 (4.4-11.0)
[2023-02-25] MEDS: Budesonide Respules 0.5 MG/2 ML AMPUL.NEB. INHALATION ×2 (07:20→19:28)
[2023-02-25 07:21] LABS: Differential Indicated MANUAL DIFF
[2023-02-25 07:43] LABS: Partial Thromboplast Time 34.1 Seconds (24.1-36.2)
[2023-02-25 07:44] LABS: Anion Gap 0 (5-15); BUN 36 mg/dL (7-18); BUN/Creat Ratio 22.1 RATIO (10-20); Calcium,Total 9.7 mg/dL (8.5-10.1); Chloride 121 mmol/L (98-107); Creatinine, Serum 1.63 mg/dL (0.55-1.02); EST Glomerular Filtration Rate 33 mL/min (>60); Est Glom Filt Rate - Afr Amer 39 mL/min (>60); Estimated Creatinine Clearance 29.62 ml/min; Glucose 98 mg/dL (74-106); Potassium 4.6 mmol/L (3.5-5.1); Sodium Level 148 mmol/L (136-145)
--- NOTE | 2023-02-25 08:21 | PN.HOSP_ITS ---
Reason for Visit Reason for Visit: Diagnoses Sepsis, unspecified organism (02/17/23) Sleep apnea, unspecified (02/17/23) Acute kidney failure, unspecified (02/17/23) Urinary tract infection, site not specified (02/17/23) Severe sepsis without septic shock (02/17/23) Severe sepsis with septic shock (02/17/23) Subjective Subjective Patient seen, kidney function continues to improve. Case discussed with nephrology plan is to start patient on Lasix given edema involving both upper and lower extremities Objective Data Objective Data Vital Signs: Vital Signs Temp Pulse Resp BP Pulse Ox O2 Del Method O2 Flow Rate 97.9 F 71 16 133/64 H 95 CPAP 2 02/25/23 03:00 02/25/23 03:00 02/25/23 03:00 02/25/23 03:00 02/25/23 03:00 02/25/23 03:00 02/24/23 15:07 FiO2 29 02/20/23 07:38 Oxygen Flow Rate (L/min) 2 Oxygen Delivery Method CPAP Weight: 167.5 kg Body Mass Index (BMI) 56.1 Intake & Output: Intake and Output for Last 24 Hours 02/23/23 02/24/23 02/25/23 23:59 23:59 23:59 Intake Total 1637.64 / 1637.64 1485.17 / 1485.17 120 / 120 Output Total 1999 / 3150 2900 / 2900 700 / 700 Balance -362.36 / -1512.36 -1414.83 / -1414.83 -580 / -580 Lab / Micro Data 02/25/23 06:55 02/25/23 06:55 Labs: Laboratory Results - last 24 hr 02/23/23 04:35: Diff Path Review Reviewed 02/24/23 05:22: Diff Path Review Reviewed 02/25/23 06:55: WBC 7.6, RBC 3.51 L, Hgb 10.2 L, Hct 33.4 L, MCV 95.2, MCH 29.1, MCHC 30.5 L, RDW Std Deviation 52.5 H, RDW Coeff of Ruben 15.8 H, Plt Count 135 L, MPV 11.7, Neut % (Auto) Not Reportable, APTT 34.1, Sodium 148 H, Potassium 4.6, Chloride 121 H, Carbon Dioxide 27.0, Anion Gap 0 L, BUN 36 H, Creatinine 1.63 H, Estim Creat Clear Calc 29.62, Est GFR (MDRD) Af Amer 39 L, Est GFR (MDRD) Non-Af 33 L, BUN/Creatinine Ratio 22.1 H, Glucose 98, Calcium 9.7 Micro: Microbiology 02/17/23 19:35 Blood Culture (Wb) - Left Hand Blood Culture - Final No growth in 5 days. 02/17/23 19:35 Blood Culture (Wb) - Anticubital Left Blood Culture - Final No growth in 5 days. 02/17/23 19:05 Urine Catheter - Croft Urine Culture - Final ESBL Escherichia coli Physical Exam Narrative GENERAL: cooperative HEENT: Atraumatic; normocephalic EYES; Anicteric, Normal Conjunctiva NECK; supple, normal thyroid, RESPIRATORY: Diminished to auscultation CARDIOVASCULAR: Regular S1 S2, GI: soft, normoactive bowel sounds, : No Renal angle tenderness; EXTREMITIES: edema, no clubbing, MUSCULOSKELETAL: no muscle wasting NEURO: Awake; no lateralizing signs. SKIN: No Rash PSYCH; Flat affect Assessment & Plan Assessment/Plan (1) Severe sepsis: (2) Acute UTI: (3) ROSELYN (acute kidney injury): PLAN: Plan Patient is a 77-year-old lady with multiple comorbidities admitted with pro gressive generalized weakness and assessment of septic shock secondary to acute cystitis made admitted to the intensive care unit where patient has since been managed 1. Septic shock ? Secondary to ESBL E. coli. Admitted to the intensive care unit patient managed with broad-spectrum antibiotic therapy with meropenem as well as pressors with norepinephrine. ? 02/21/2023;Patient remains hypotensive in the ICU patient remains on Levophed. Midodrine added to patient treatment. ? 02/22/2023; patient remains on pressor support with Levophed. ? 02/23/2023; patient Levophed has been weaned off. Remains on broad-spectrum antibiotic therapy WBC count down. ? 02/24/2023; patient remains stable 2. Acute kidney injury -Patient has a baseline creatinine between 1.1 and 1.4, creatinine on admission was 3.73. Patient kidney function continues to worsen up to 4.26. Consult placed to nephrology ? 02/21/2023 creatinine down to 3.81 ? 02/22/2023; creatinine down to 3.22 ? 02/23/2023; creatinine down to 2.65 ? 02/24/2023; creatinine down to 1.95 ? 02/25/2023; creatinine down to 1.63 3. Class III obesity with BMI of 55.3 ? Complicating care, weight loss advised 4. Hyperkalemia ? Patient potassium supplement discontinued 5. Dyslipidemia -Patient is on statin therapy, continued at home dose 6. Depression with anxiety ? Patient is on fluoxetine as well as lorazepam as needed 7. GERD ? Patient is on PPI did continue 8. Obstructive sleep apnea ? PAP therapy at night 9. Hypernatremia ? Secondary to aggressive IV fluid resuscitation with saline this has been transitioned to Ringer's lactate with subsequent monitoring of electrolytes ordered ? 02/21/2023 sodium level up to 148 chloride 120, patient fluid had been adjusted the day prior ? 02/22/2023; sodium levels remained elevated at 147 patient started on 0.45 saline. ? 02/23/2023 sodium levels remain elevated at 148 ? 02/24/2023; sodium remains stable at 148 10. Diabetes mellitus type 2 ? Currently managed with diet please on Accu-Cheks before meals and at bedtime with sliding scale coverage 10. Paroxysmal A-fib ? Rate controlled on metoprolol ? 02/24/2023 patient was on heparin drip discontinued started on apixaban 2.5 11. History of Spinal osteomyelitis underwent T12 an L1 corpectomy at the [facility] in 2014 12. Anemia - Secondary to chronic disorder monitoring H&H and transfuse if patient becomes symptomatic or hemoglobin falls below 7 13. DVT prophylaxis ? SC heparin 14. Physical deconditioning - Requested for PT OT eval and social research assistant to assist with discharge planning ? 02/25/2023; transfer to detention facility pending Time spent in the patient's overall evaluation,decision-making process, review of diagnostic data, adjustment of management, discussion with other providers, nursing nursing and ancillary staff involved in patient's care documentation, 35 minutes Charges/Coding Visit Charges Inpatient E&M: 85436 Subs Hosp L2
[2023-02-25 08:32] LABS: Eosinophil 7 % (0-5); Lymphocyte 20 % (19-41); Metamyelocyte 4 % (0-1); Monocyte 1 % (0-10); Myelocyte 7 % (0-0); Neutrophil-Band 1 % (0-5); Neutrophil-Segmented 60 % (47-70); Total Cells Counted 100 (MANUAL DIFF)
[2023-02-25 08:33] LABS: Platelet Estimate ADEQUATE (ADEQ); Red Cell Morphology NORM C+C NORMAL (NORM C&C)
[2023-02-25 08:34] LABS: Absolute Lymphocyte Count 1.52 X10^3/uL (0.83-4.51); Absolute Neutrophil Count 4.6 X10^3/uL (2.0-7.7)
[2023-02-25] MEDS: Zinc Sulfate 50 mg zinc (220 mg) ORAL capsule PO (09:09)
[2023-02-25] MEDS: Gabapentin 100 MG Capsule PO ×2 (09:10→22:24)
[2023-02-25] MEDS: FLUoxetine 20 MG Capsule PO (09:10)
[2023-02-25] MEDS: APIXABAN 5 MG TABLET PO ×2 (09:10→22:24)
[2023-02-25] MEDS: Amiodarone 200 MG Tablet PO (09:10)
[2023-02-25] MEDS: Senna/Docusate Sodium 1 Tablet PO (09:10)
[2023-02-25] MEDS: Pantoprazole Sodium 40 MG Tablet PO (09:10)
[2023-02-25] MEDS: Folic Acid/Vitamin B Comp W-C 1 Capsule 1 CAP PO (09:10)
[2023-02-25] MEDS: 0.9% Saline Lock 10 ML Syringe IV ×2 (09:11→11:32)
[2023-02-25] MEDS: Meropenem 1 GM in 0.9% Normal Saline (100mL MB+) 100 ML IV ×2 (09:11→22:25)
--- NOTE | 2023-02-25 10:34 | PCM.PN.REN ---
Documented by User: JERROD Villarreal 02/25/23 10:46 Subjective Subjective Resting in bed. No overnight events. Daughter at bedside. Denies any nausea, vomiting or diarrhea. Objective Data Objective Data Vital Signs: Vital Signs Temp Pulse Resp BP Pulse Ox O2 Del Method O2 Flow Rate 97.9 F 87 18 177/67 H 95 Nasal Cannula 2 02/25/23 09:05 02/25/23 09:05 02/25/23 09:05 02/25/23 09:05 02/25/23 09:05 02/25/23 09:05 02/25/23 09:05 FiO2 29 02/20/23 07:38 Oxygen Flow Rate (L/min) 2 Oxygen Delivery Method Nasal Cannula Weight: 167.5 kg Body Mass Index (BMI) 56.1 Intake & Output: Intake and Output for Last 24 Hours 02/23/23 02/24/23 02/25/23 23:59 23:59 23:59 Intake Total 1637.64 / 1637.64 1485.17 / 1485.17 120 / 120 Output Total 2000 / 3150 2900 / 2900 700 / 700 Balance -362.36 / -1512.36 -1414.83 / -1414.83 -580 / -580 Lab / Micro Data 02/25/23 06:55 02/25/23 06:55 Labs: Laboratory Results - last 24 hr 02/23/23 04:35: Diff Path Review Reviewed 02/24/23 05:22: Diff Path Review Reviewed 02/25/23 06:55: WBC 7.6, RBC 3.51 L, Hgb 10.2 L, Hct 33.4 L, MCV 95.2, MCH 29.1, MCHC 30.5 L, RDW Std Deviation 52.5 H, RDW Coeff of Ruben 15.8 H, Plt Count 135 L, MPV 11.7, Neut % (Auto) Not Reportable, Absolute Neuts (auto) 4.6, Absolute Lymphs (auto) 1.52, Total Counted 100, Neutrophils % (Manual) 60, Band Neutrophils % 1, Lymphocytes % (Manual) 20, Monocytes % (Manual) 1, Eosinophils % (Manual) 7 H, Metamyelocytes % 4 H, Myelocytes % 7 H, Diff Path Review May foll, Platelet Estimate ADEQUATE, RBC Morphology NORM C+C, APTT 34.1, Sodium 148 H, Potassium 4.6, Chloride 121 H, Carbon Dioxide 27.0, Anion Gap 0 L, BUN 36 H, Creatinine 1.63 H, Estim Creat Clear Calc 29.62, Est GFR (MDRD) Af Amer 39 L, Est GFR (MDRD) Non-Af 33 L, BUN/Creatinine Ratio 22.1 H, Glucose 98, Calcium 9.7 Micro: Microbiology 02/17/23 19:35 Blood Culture (Wb) - Left Hand Blood Culture - Final No growth in 5 days. 02/17/23 19:35 Blood Culture (Wb) - Anticubital Left Blood Culture - Final No growth in 5 days. 02/17/23 19:05 Urine Catheter - Lincoln Urine Culture - Final ESBL Escherichia coli Physical Exam Narrative Alert awake oriented x 3 no obvious distress Normal s1s2. There is 2/6 systolic murmur lungs clear anteriorly abdomen is obese, soft, rounded, positive bowel sounds Trace pitting edema noted bilateral lower legs and arms lincoln +, clear straw-colored urine Assessment & Plan Assessment/Plan (1) ROSELYN (acute kidney injury): PLAN: Impression/Plan: The patient is a 77-year-old woman with past history of type 2 diabetes mellitus, hypertension, COPD, ROBBI, atrial fibrillation, hyperlipidemia, osteoarthritis, and depression. Patient presented to hospital on 02/17/2023 with generalized weakness. She was subsequently diagnosed with UTI complicated by sepsis/circulatory shock. Nephrology is following for ROSELYN. - Acute kidney injury. The patient has nonoliguric acute renal failure superimposed on CKD stage G3a (baseline serum creatinine has been ~1.3- 1.5 mg/dL prior to admission). ROSELYN is due to severe sepsis causing ischemic ATN. Creatinine was 3.7 mg/dL on admission on 02/17/2023, peaked 4.2 mg/dL on 02/20/2023 and today serum creatinine 1.63. Overall renal function is improving. Patient never required any DIRECTOR OF DISTRIBUTION. Renal function improved with supportive care and treatment of sepsis Today patient and daughter both state they are noticing worsening edema to patient's legs and arms. Prior to admission she had been taking furosemide. Will give 1 dose today. - Mild hypernatremia. Serum sodium is 148 mmol/L. She is not polyuric, so this is not DI. Patient has normal baseline sodium trends. She is on fluid restriction. She is drinking free water. -Discussed nephrology plan with Dr. Conroy Documented by User: Dr. Hawa Alcantar MD 02/25/23 15:17 Objective Data Lab / Micro Data 02/25/23 06:55 02/25/23 06:55 Assessment & Plan Assessment/Plan (1) ROSELYN (acute kidney injury): PLAN: Impression/Plan: The patient is a 77-year-old woman with past history of type 2 diabetes mellitus, hypertension, COPD, ROBBI, atrial fibrillation, hyperlipidemia, osteoarthritis, and depression. Patient presented to hospital on 02/17/2023 with generalized weakness. She was subsequently diagnosed with UTI complicated by sepsis/circulatory shock. Nephrology is following for ROSELYN. - Acute kidney injury. The patient has nonoliguric acute renal failure superimposed on CKD stage G3a (baseline serum creatinine has been ~1.3- 1.5 mg/dL prior to admission). ROSELYN is due to severe sepsis causing ischemic ATN. Creatinine was 3.7 mg/dL on admission on 02/17/2023, peaked 4.2 mg/dL on 02/20/2023 and today serum creatinine 1.63. Overall renal function is improving. Patient never required any DIRECTOR OF DISTRIBUTION. Renal function improved with supportive care and treatment of sepsis Today patient and daughter both state they are noticing worsening edema to patient's legs and arms. Prior to admission she had been taking furosemide. Will give 1 dose today. - Mild hypernatremia. Serum sodium is 148 mmol/L. She is not polyuric, so this is not DI. Patient has normal baseline sodium trends. She is on fluid restriction. She is drinking free water. -Discussed nephrology plan with Dr. Conroy Nephrology attending: The patient seen and examined. I agree with LAURENT's assessment and plan as documented above. Following for ROSELYN. The patient has ischemic ATN related to circulatory shock due to sepsis. Serum creatinine peaked at 4.20 mg/dL on 02/20/2023. Renal function has continued to improve with improvement of hemodynamics and treatment of sepsis. There is no need for dialysis. Will try 1 dose of Lasix today because of edema. Will monitor renal function, volume status, and electrolyte with diuresis. She also remains mildly hypernatremic. Will monitor serum sodium for now. Emigdio Cortez MD
--- NOTE | 2023-02-25 11:29 | CASEMGMT ---
BRETT met with patient and her daughter Neema. Neema said they would like SW to check with [facility] in [place]. Neema said they would be open to any suggestions for any facilities in [place]. [facility] has a Rehab Unit, but not sure about a TCU. April coyle/matthew program manager environmental planning will check with [facility]. Shana Francisco MENTAL HEALTH NURSE PRACTITIONER DORON
[2023-02-25] MEDS: Furosemide 20 MG/2 ML VIAL IV (11:33)
--- NOTE | 2023-02-25 11:38 | CASEMGMT ---
BRETT is not familiar with any facilities in [place] especially those that take bariatric patients. [facility] and spoke with Indira in Marketing. Indira referred BRETT to [facility]'s care advisor for the [facility], [facility]. BRETT called Aviva and left her a voice mail requesting a return call. Shana SAL
--- NOTE | 2023-02-25 13:07 | CASEMGMT ---
Discharge Planning Referral sent to [facility] via [facility]. April Bullock, Discharge Planning Asst.
--- NOTE | 2023-02-25 15:40 | CASEMGMT ---
Discharge Planning A list of?SNF providers including quality and resource use data and consistent with the patient's preferred geographic region ([place] [id number], and [place] [id number]), medical needs, and insurance network was created in [facility].? This list was provided to the patient and her daughter April Bullock, Discharge Planning Asst.
[2023-02-25] MEDS: Albuterol 2.5 MG/3 ML VIAL.NEB. INHALATION (19:28)
[2023-02-25] MEDS: Acetaminophen 325 MG Tablet 650 MG PO (22:25)
[2023-02-26 03:46] VITALS: BMI 55.1
[2023-02-26 06:07] LABS: Hematocrit 32.2 % (37-47); Hemoglobin 10.1 g/dL (12.0-15.0); Mean Corp Hgb Conc 31.4 g/dL (32-36); Mean Corpuscular Hgb 29.9 pg (27.0-32.0); Mean Corpuscular Volume 95.3 fL (81-99); Mean Platelet Vol. 11.5 fl (6.2-12.0); POSITIVE COUNT YES; POSITIVE MORPHOLOGY YES; Platelet Count 138 K/mm3 (150-450); RBC Distribution Width CV 15.8 % (11.6-14.6); RBC Distribution Width SD 52.5 fl (35.1-43.9); Red Blood Count 3.38 M/mm3 (4.2-5.4); White Blood Count 8.4 K/mm3 (4.4-11.0)
[2023-02-26 06:11] VITALS: BP 160/66; PULSE 94; RESP 16; TEMP 36.9; O2SAT 95
[2023-02-26 06:20] LABS: Differential Indicated MANUAL DIFF
[2023-02-26 06:26] LABS: Anion Gap 4 (5-15); BUN 32 mg/dL (7-18); BUN/Creat Ratio 22.2 RATIO (10-20); Calcium,Total 9.2 mg/dL (8.5-10.1); Chloride 118 mmol/L (98-107); Creatinine, Serum 1.44 mg/dL (0.55-1.02); EST Glomerular Filtration Rate 38 mL/min (>60); Est Glom Filt Rate - Afr Amer 46 mL/min (>60); Estimated Creatinine Clearance 54.66 ml/min; Glucose 101 mg/dL (74-106); Potassium 4.5 mmol/L (3.5-5.1); Sodium Level 149 mmol/L (136-145)
[2023-02-26 07:30] VITALS: PULSE 88; RESP 20; O2SAT 96
[2023-02-26 07:40] VITALS: PULSE 82; RESP 20
[2023-02-26] MEDS: Albuterol 2.5 MG/3 ML VIAL.NEB. INHALATION (07:44)
[2023-02-26] MEDS: Budesonide Respules 0.5 MG/2 ML AMPUL.NEB. INHALATION (07:44)
--- NOTE | 2023-02-26 08:22 | CASEMGMT ---
Discharge Planning Requested therapy notes sent to [facility] via [facility]. April Bullock, Discharge Planning Asst.
[2023-02-26 08:29] VITALS: BP 145/65; PULSE 86; RESP 14; TEMP 36.6; O2SAT 95
[2023-02-26] MEDS: Zinc Sulfate 50 mg zinc (220 mg) ORAL capsule PO (08:33)
[2023-02-26] MEDS: FLUoxetine 20 MG Capsule PO (08:34)
[2023-02-26] MEDS: Senna/Docusate Sodium 1 Tablet PO (08:34)
[2023-02-26] MEDS: APIXABAN 5 MG TABLET PO (08:34)
[2023-02-26] MEDS: Folic Acid/Vitamin B Comp W-C 1 Capsule 1 CAP PO (08:34)
[2023-02-26] MEDS: Ascorbic Acid 500 MG Tablet 1000 MG PO (08:35)
[2023-02-26] MEDS: Ensure Clear 120 ML Liquid PO (08:35)
[2023-02-26] MEDS: Amiodarone 200 MG Tablet PO (08:36)
[2023-02-26] MEDS: Pantoprazole Sodium 40 MG Tablet PO (08:36)
[2023-02-26] MEDS: Acetaminophen 325 MG Tablet 650 MG PO (08:41)
[2023-02-26] MEDS: Gabapentin 100 MG Capsule PO (08:41)
[2023-02-26 08:54] VITALS: O2SAT 95
[2023-02-26 09:24] LABS: Differential Comment S
[2023-02-26 09:32] LABS: Pathologist Review May foll
--- NOTE | 2023-02-26 10:39 | DS.PCM_ITS ---
Providers Date of Admission: 02/17/23 Date of Discharge: 02/26/23 Primary Care Physician: Dr. Sandrine Mireles MD Consultations 02/18/23 01:10 Consult: Onc/Wound/pipe organ technician Routine Comment: Reason for Consult:: dorsal surface of Rt calf/heel recommendations 02/18/23 06:23 Consult: Remote Sensing Analyst / Pulmonary Medicine Routine Consulting Provider: Pulmonary Medicine leonardo Winslow Reason for Consult: ICU mgt EMERGENT Consult: No Notified: Yes Date Notified: 02/18/23 Time Notified: 06:24 Method of Notification: Verbal Consult: Nephrology Routine Consulting Provider: [facility] Reason for Consult: low urine output, elevated BUN EMERGENT Consult: No Notified: Yes Date Notified: 02/18/23 Time Notified: 09:16 Method of Notification: Verbal Reason For Visit: SEPSIS WITH SEPTIC SHOCK, UTI, ARF Diagnosis Discharge Diagnosis (1) ROSELYN (acute kidney injury): Status: Acute Code(s): N17.9 - Acute kidney failure, unspecified Plan Patient is a 77-year-old lady with multiple comorbidities admitted with progressive generalized weakness and assessment of septic shock secondary to acute cystitis made admitted to the intensive care unit where patient has since been managed 1. Septic shock ? Secondary to ESBL E. coli. Admitted to the intensive care unit patient managed with broad-spectrum antibiotic therapy with meropenem as well as pressors with norepinephrine. ? 02/21/2023;Patient remains hypotensive in the ICU patient remains on Levophed. Midodrine added to patient treatment. ? 02/22/2023; patient remains on pressor support with Levophed. ? 02/23/2023; patient Levophed has been weaned off. Remains on broad-spectrum antibiotic therapy WBC count down. ? 02/24/2023; patient remains stable 2. Acute kidney injury -Patient has a baseline creatinine between 1.1 and 1.4, creatinine on admission was 3.73. Patient kidney function continues to worsen up to 4.26. Consult placed to nephrology ? 02/21/2023 creatinine down to 3.81 ? 02/22/2023; creatinine down to 3.22 ? 02/23/2023; creatinine down to 2.65 ? 02/24/2023; creatinine down to 1.95 ? 02/25/2023; creatinine down to 1.63 3. Class III obesity with BMI of 55.3 ? Complicating care, weight loss advised 4. Hyperkalemia ? Patient potassium supplement discontinued 5. Dyslipidemia -Patient is on statin therapy, continued at home dose 6. Depression with anxiety ? Patient is on fluoxetine as well as lorazepam as needed 7. GERD ? Patient is on PPI did continue 8. Obstructive sleep apnea ? PAP therapy at night 9. Hypernatremia ? Secondary to aggressive IV fluid resuscitation with saline this has been transitioned to Ringer's lactate with subsequent monitoring of electrolytes ordered ? 02/21/2023 sodium level up to 148 chloride 120, patient fluid had been adjusted the day prior ? 02/22/2023; sodium levels remained elevated at 147 patient started on 0.45 saline. ? 02/23/2023 sodium levels remain elevated at 148 ? 02/24/2023; sodium remains stable at 148 10. Diabetes mellitus type 2 ? Currently managed with diet please on Accu-Cheks before meals and at bedtime with sliding scale coverage 10. Paroxysmal A-fib ? Rate controlled on metoprolol ? 02/24/2023 patient was on heparin drip discontinued started on apixaban 2.5 11. History of Spinal osteomyelitis underwent T12 an L1 corpectomy at the [facility] in 2014 12. Anemia - Secondary to chronic disorder monitoring H&H and transfuse if patient becomes symptomatic or hemoglobin falls below 7 13. DVT prophylaxis ? SC heparin 14. Physical deconditioning - Requested for PT OT eval and social insurance administrator to assist with discharge planning ? 02/25/2023; transfer to half-way facility pending Time spent in the patient's overall evaluation,decision-making process, review of diagnostic data, adjustment of management, discussion with other providers, nursing nursing and ancillary staff involved in patient's care documentation, 35 minutes Medications at Discharge Home Medications ergocalciferol (vitamin D2) 1,250 mcg (50,000 unit) capsule 50,000 unit PO MAZA SUPPLEMENT 02/25/20 fluoxetine 20 mg capsule 20 mg PO DAILY DEPRESSION 02/25/20 gabapentin 100 mg capsule 100 mg PO BID NERVE PAIN 02/25/20 rosuvastatin 5 mg tablet (Crestor) 5 mg PO DAILY 01/16/21 vitamin B complex and vitamin C no.20-folic acid 1 mg capsule (Triphrocaps) 1 cap PO DAILY 01/16/21 lorazepam 0.5 mg tablet (Ativan) 0.5 mg PO TID PRN anxiety 03/12/21 pantoprazole 40 mg tablet,delayed release 40 mg PO DAILY 03/12/21 fluticasone furoate 100 mcg/actuation blister powder for inhalation (Arnuity Ellipta) 1 inh inhalation BID 02/17/23 metoprolol tartrate 25 mg tablet 25 mg PO TID 02/17/23 acetaminophen 325 mg tablet 650 mg (2 x 325 mg) PO Q6H PRN PRN Pain 1-10 Or Fever #0 tabs 02/26/23 acidophilus 25 million cell-pectin, citrus 100 mg tablet 2 tab PO BID #0 tabs 02/26/23 albuterol sulfate 2.5 mg/3 mL (0.083 %) solution for nebulization 2.5 mg (3 mL) inhalation Q2H PRN PRN SOB &/OR WHEEZING #0 mL 02/26/23 amiodarone 200 mg tablet 200 mg PO DAILY #0 tabs 02/26/23 apixaban 5 mg tablet (Eliquis) 5 mg PO BID #0 tabs 02/26/23 food supplemt, lactose-reduced (Ensure Clear oral liquid) 120 ml PO TIDCM #0 mL 02/26/23 polyethylene glycol 3350 17 gram oral powder packet 34 g PO DAILY #0 ea 02/26/23 sennosides 8.6 mg-docusate sodium 50 mg tablet (Stool Softener-Stimulant Laxative) 1 tab PO DAILY #0 tabs 02/26/23 Hospital Course Summary of Care Provided Minutes Spent on Discharge: 35 Physical Exam Narrative GENERAL: cooperative HEENT: Atraumatic; normocephalic EYES; Anicteric, Normal Conjunctiva NECK; supple, normal thyroid, RESPIRATORY: Diminished to auscultation CARDIOVASCULAR: Regular S1 S2, GI: soft, normoactive bowel sounds, : No Renal angle tenderness; EXTREMITIES: edema, no clubbing, MUSCULOSKELETAL: no muscle wasting NEURO: Awake; no lateralizing signs. SKIN: No Rash PSYCH; Flat affect Weight / BMI Weight Weight: 164.6 kg Body Mass Index (BMI) 55.1 ABG / Lab / Microbiology Data 02/26/23 05:29 02/26/23 05:29 Laboratory: Laboratory Results - last 24 hr 02/26/23 05:29: WBC 8.4, RBC 3.38 L, Hgb 10.1 L, Hct 32.2 L, MCV 95.3, MCH 29.9, MCHC 31.4 L, RDW Std Deviation 52.5 H, RDW Coeff of Ruben 15.8 H, Plt Count 138 L, MPV 11.5, Neut % (Auto) Not Reportable, Differential Comment S, Sodium 149 H, Potassium 4.5, Chloride 118 H, Carbon Dioxide 27.0, Anion Gap 4 L, BUN 32 H, Creatinine 1.44 H, Estim Creat Clear Calc 54.66, Est GFR (MDRD) Af Amer 46 L, Est GFR (MDRD) Non-Af 38 L, BUN/Creatinine Ratio 22.2 H, Glucose 101, Calcium 9.2 Microbiology: Microbiology 02/17/23 19:35 Blood Culture (Wb) - Left Hand Blood Culture - Final No growth in 5 days. 02/17/23 19:35 Blood Culture (Wb) - Anticubital Left Blood Culture - Final No growth in 5 days. 02/17/23 19:05 Urine Catheter - [place] Urine Culture - Final ESBL Escherichia coli Meaningful Use Info Meaningful Use Diagnoses (Choose all that apply): None applicable Discharge Plan Admission Admit Date/Time: 02/17/23 20:56 Attending Provider: Zain Conroy Primary Care Provider: Sandrine Mireles Consulting Providers: Zain Alex; Bo Ace; Dago Davis; Rufino Lopez; Justin Bui; Nate Talamantes; Eri Salazar NP; Santi Sanchez; Gómez Sheldon; Saniya Monreal; Andressa Maravilla; Ortiz,Debbithvitaly; Aura Montoya; Jennifer Rogers; Brody Song; Delvin Dobbs; Jennifer Hines Discharge Orders/Prescriptions Prescriptions: New acetaminophen 325 mg Tablet 650 mg PO Q6H PRN PRN (Reason: Pain 1-10 Or Fever) Qty: 0 0RF albuterol sulfate 2.5 mg /3 mL (0.083 %) Solution For Nebulization 2.5 mg inhalation Q2H PRN PRN (Reason: SOB &/OR WHEEZING) Qty: 0 0RF polyethylene glycol 3350 17 gram Powder In Packet 34 g PO DAILY Qty: 0 0RF amiodarone 200 mg Tablet 200 mg PO DAILY Qty: 0 0RF sennosides-docusate sodium [Stool Softener-Stimulant Laxat] 8.6-50 mg Tablet 1 tab PO DAILY Qty: 0 0RF Ensure Clear Liquid 120 ml PO TIDCM Qty: 0 0RF acidophilus-pectin, citrus 25 million cell -100 mg Tablet 2 tab PO BID Qty: 0 0RF Eliquis 5 mg Tablet 5 mg PO BID Qty: 0 0RF Continued lorazepam [Ativan] 0.5 mg tablet 0.5 mg PO TID PRN (Reason: anxiety) pantoprazole 40 mg tablet,delayed release (DR/EC) 40 mg PO DAILY gabapentin 100 MG capsule 100 mg PO BID ergocalciferol (vitamin D2) 50,000 UNIT capsule 50,000 unit PO MAZA Patient Comments: take 1 capsule by mouth every week fluoxetine 20 MG capsule 20 mg PO DAILY Patient Comments: depression Triphrocaps 1 mg capsule 1 cap PO DAILY rosuvastatin [Crestor] 5 mg Tablet 5 mg PO DAILY Arnuity Ellipta 100 mcg/actuation blister with device 1 inh INHALATION BID metoprolol tartrate 25 mg tablet 25 mg PO TID Discontinued potassium chloride 10 MEQ tablet,ER particles/crystals 10 meq PO DAILY Referrals / Follow Up: Sandrine Mireles MD [Primary Care Provider] - Disposition Disposition (needs filled in before D/C Order can be placed): Inpatient Rehab Unit/Facility Charges/Coding Visit Charges Inpatient E&M: 51827 Disch Hosp >30min
[2023-02-26] MEDS: Meropenem 1 GM in 0.9% Normal Saline (100mL MB+) 100 ML IV (10:42)
--- NOTE | 2023-02-26 11:02 | CASEMGMT ---
[facility] accepted patient. SW went to patient's room and notified patient and her daughter. At first they were not sure if this is where patient wanted to go. They mentioned the list of nursing homes they were given in [place]. SW explained that Patient will get more therapy at [facility] than she would at a assisted. SW explained the [facility] is also located inside the hospital. They were both agreeable to patient going to [facility]. SW notified physician. Plan: d/c to [facility]. Physicians will transport patient. Shana SAL
--- NOTE | 2023-02-26 11:10 | PHA.DC.MR.R ---
Pharmacy [place] Med Reconciliation Pharmacy Service has performed discharge medication reconciliation for this patient. The patient's discharge medication list was reviewed for discrepancies and discrepancies were resolved. Medications at Discharge Home Medications ergocalciferol (vitamin D2) 1,250 mcg (50,000 unit) capsule 50,000 unit PO MAZA SUPPLEMENT 02/25/20 fluoxetine 20 mg capsule 20 mg PO DAILY DEPRESSION 02/25/20 gabapentin 100 mg capsule 100 mg PO BID NERVE PAIN 02/25/20 rosuvastatin 5 mg tablet (Crestor) 5 mg PO DAILY 01/16/21 vitamin B complex and vitamin C no.20-folic acid 1 mg capsule (Triphrocaps) 1 cap PO DAILY 01/16/21 lorazepam 0.5 mg tablet (Ativan) 0.5 mg PO TID PRN anxiety 03/12/21 pantoprazole 40 mg tablet,delayed release 40 mg PO DAILY 03/12/21 fluticasone furoate 100 mcg/actuation blister powder for inhalation (Arnuity Ellipta) 1 inh inhalation BID 02/17/23 metoprolol tartrate 25 mg tablet 25 mg PO TID 02/17/23 acetaminophen 325 mg tablet 650 mg (2 x 325 mg) PO Q6H PRN PRN Pain 1-10 Or Fever #0 tabs 02/26/23 acidophilus 25 million cell-pectin, citrus 100 mg tablet 2 tab PO BID #0 tabs 02/26/23 albuterol sulfate 2.5 mg/3 mL (0.083 %) solution for nebulization 2.5 mg (3 mL) inhalation Q2H PRN PRN SOB &/OR WHEEZING #0 mL 02/26/23 amiodarone 200 mg tablet 200 mg PO DAILY #0 tabs 02/26/23 apixaban 5 mg tablet (Eliquis) 5 mg PO BID #0 tabs 02/26/23 food supplemt, lactose-reduced (Ensure Clear oral liquid) 120 ml PO TIDCM #0 mL 02/26/23 polyethylene glycol 3350 17 gram oral powder packet 34 g PO DAILY #0 ea 02/26/23 sennosides 8.6 mg-docusate sodium 50 mg tablet (Stool Softener-Stimulant Laxative) 1 tab PO DAILY #0 tabs 02/26/23
--- NOTE | 2023-02-26 11:30 | CASEMGMT ---
Discharge Planning Discharge orders, signed med list, and transport time sent to [facility] via [facility]. Physicians will transport patient by cot at 12:30. Nursing, SW, patient, and her daughter updated. April Bullock, Discharge Planning Asst.
[2023-02-26] MEDS: 0.9% Saline Lock 10 ML Syringe IV (11:36)
[2023-02-26] MEDS: Furosemide 100 MG/10 ML Vial 60 MG IV (11:37)
[2023-02-26 12:21] VITALS: BP 142/65; PULSE 89; RESP 18; TEMP 36.3; O2SAT 93
--- NOTE | 2023-02-26 13:45 | CASEMGMT ---
BRETT noted there were no wound care instructions in patient's discharge instructions. BRETT scanned wound care orders and sent to [facility] via [facility]. Shana SAL
--- NOTE | 2023-02-26 13:48 | NURSING ---
report called to [facility] RN Nasir
[2023-02-26 14:16] LABS: Pathologist Review Reviewed
[2023-02-26 15:22] LABS: Eosinophil 3 % (0-5); Lymphocyte 10 % (19-41); Monocyte 10 % (0-10); Myelocyte 2 % (0-0); Neutrophil-Segmented 72 % (47-70); Other WBC Type 3 %; Total Cells Counted 100 (MANUAL DIFF)
[2023-02-26 15:25] LABS: Absolute Lymphocyte Count 0.84 X10^3/uL (0.83-4.51)
== END 2023-02-26 12:50 | DRG 871 ==
LOC: ED 20:29 → ICU 02-18 07:01 → PCU 02-23 12:42
PROVIDERS: Internal Medicine; Internal Medicine Critical Care Medicine; Admitting Provider Internal Medicine; Emergency Provider Emergency Medicine; PCP Internal Medicine; Visit Provider Internal Medicine
DX: A41.51 Sepsis due to Escherichia coli [E. coli] (principal); R65.21 Severe sepsis with septic shock; N17.0 Acute kidney failure with tubular necrosis; E87.0 Hyperosmolality and hypernatremia; Z68.43 Body mass index [BMI] 50.0-59.9, adult; N30.00 Acute cystitis without hematuria; Z16.12 Extended spectrum beta lactamase (ESBL) resistance; B35.6 Tinea cruris; E11.22 Type 2 diabetes mellitus with diabetic chronic kidney disease; I48.0 Paroxysmal atrial fibrillation; J44.9 Chronic obstructive pulmonary disease, unspecified; N18.31 Chronic kidney disease, stage 3a; E66.01 Morbid (severe) obesity due to excess calories; I12.9 Hypertensive chronic kidney disease with stage 1 through stage 4 chronic kidney disease, or unspecified chronic kidney disease; F32.A Depression, unspecified; E78.5 Hyperlipidemia, unspecified; F41.9 Anxiety disorder, unspecified; K21.9 Gastro-esophageal reflux disease without esophagitis; E87.5 Hyperkalemia; E80.6 Other disorders of bilirubin metabolism; G47.33 Obstructive sleep apnea (adult) (pediatric); E87.8 Other disorders of electrolyte and fluid balance, not elsewhere classified; R53.81 Other malaise; R60.0 Localized edema; Z11.52 Encounter for screening for COVID-19; Z79.01 Long term (current) use of anticoagulants; Z79.899 Other long term (current) drug therapy; Z79.51 Long term (current) use of inhaled steroids
CPT/HCPCS: 36415; 36569; 51702; 71045; 76705; 80048; 80074; 80076; 81001; 82330; 82375; 83605; 83735; 84100; 85025; 85610; 85730; 87040; 87077; 87086; 87088; 87186; 93005; 93306; 94002; 94003; 94640; 94762; 97110; 97163; 97166; 97530; 97535; 99285; J2185; J7030; J7040; J7050; J7120; P9047; Q9957; A4216; C8929; J1940

== ENCOUNTER 2023-04-10 13:15 | Outpatient (RCR) | payer MEDICARE, OTHER, SELFPAY ==
[2023-03-27 13:20] VITALS: BP 98/56; PULSE 101; RESP 22; TEMP 37.1; BMI 49.1
--- NOTE | 2023-03-28 08:32 | PCM.WC.HP ---
History of Present Illness Date of Service: 03/27/23 Chief Complaint: Abdominal wound History of Wound: Nerissa Bradley is a 77-year-old female who presents to the wound healing center today for evaluation management of an abdominal wound. This wound is located in the midline under her pannus. She does have a very large pannus with significant weight. she reports that this wound has been present for approximately 1 month, first came to her attention when she was admitted to the hospital recently. She thinks it is from her wheelchair hitting against the area. At home, she relies on her daughter to assist her with wound care. Since her discharge from the hospital, they have been utilizing Aquacel they were sent home with but she did run out recently. She had been receiving antifungal powder to apply while in the hospital, but does not have this at home. She denies any history of prior wounds in this area. She does have a history of superficial wounds to the bilateral lower extremities which were also noted at the time of her most recent hospitalization early February, but seem to be resolved at this time. She does wear compression stockings. She is trying to do a better job of elevating her legs but does note she cannot lay back too far without having difficulty breathing. She is diabetic but most recent A1c in 11/2022 5.4 and do not see any active medications for diabetes. She does not smoke. She does not take any blood thinners other than aspirin. [facility] Medical History (Updated 03/28/23 @ 12:17 by OSCAR Hannah) Anemia Bilateral pulmonary embolism (07/2014) Chronic obstructive pulmonary disease with hypoxia Depression Essential hypertension Morbid obesity Multiple thyroid nodules Osteomyelitis of cervical spine Postoperative atrial fibrillation (06/2014) Type 2 diabetes mellitus Home Medications ergocalciferol (vitamin D2) 1,250 mcg (50,000 unit) capsule 50,000 unit PO MAZA SUPPLEMENT 02/25/20 [History Last Taken 02/20/20] fluoxetine 20 mg capsule 20 mg PO DAILY DEPRESSION 02/25/20 [History Last Taken 02/25/20] gabapentin 100 mg capsule 100 mg PO BID NERVE PAIN 02/25/20 [History Last Taken 02/25/20] rosuvastatin 5 mg tablet (Crestor) 5 mg PO .HS 01/16/21 [History Last Taken Unknown] pantoprazole 40 mg tablet,delayed release 40 mg PO DAILY 03/12/21 [History Last Taken Unknown] metoprolol tartrate 25 mg tablet 25 mg PO .HS 02/17/23 [History Last Taken Unknown] amiodarone 200 mg tablet 200 mg PO DAILY #0 tabs 02/26/23 [Rx Last Taken Unknown] albuterol sulfate 90 mcg/actuation breath activated powder inhaler 2 inh inhalation .000 PRN shortness of breath 03/27/23 [History Last Taken Unknown] ammonium lactate 12 % lotion (Skin Treatment) 1 applic topical DAILY PRN dry skin 03/27/23 [History Last Taken Unknown] aspirin 81 mg tablet,delayed release (Ecotrin Low Strength) 81 mg PO DAILY 03/27/23 [History Last Taken Unknown] furosemide 40 mg tablet 40 mg PO DAILY 03/27/23 [History Last Taken Unknown] mometasone-formoterol HFA 100 mcg-5 mcg/actuation aerosol inhaler (Dulera) 2 inh inhalation BID 03/27/23 [History Last Taken Unknown] vitamin B complex and vitamin C no.20-folic acid 1 mg capsule (Renal Caps) 1 cap PO DAILY 03/27/23 [History Last Taken Unknown] Allergy/AdvReac Type Severity Reaction Status Date / Time Food Allergies: Uncoded Allergy Swelling Verified 03/27/23 13:58 ibuprofen Allergy Shortness Verified 03/27/23 13:58 of breath oxycodone HCl [From Percocet] Allergy dizziness Verified 03/27/23 13:58 procaine [From Novocain] Allergy Other Verified 03/27/23 13:58 ciprofloxacin HCl AdvReac Other Verified 03/26/21 12:41 [From Cipro] Family History Father Diabetes Surgical History History of History of cholecystectomy History of spinal fusion Social History Smoking Status: Never smoker alcohol intake: never Vital Signs Vital Signs Vital Signs: 03/27/23 13:20 Temperature 98.8 F Temperature Source Temporal Pulse Rate 101 H Respiratory Rate 22 H Blood Pressure 98/56 L Blood Pressure Mean 70 Blood Pressure Source Monitor Weight Weight: 295 lb 5.818 oz Body Mass Index (BMI) 49.1 Physical Exam Const alert, oriented x3 and no apparent distress General Appearance: cooperative Nutritional Appearance: morbidly obese HEENT normocephalic, head/scalp atraumatic, hearing grossly normal bilaterally, external ears normal and external nose normal Eyes EOMs intact bilaterally General Eye: normal appearance of both eyes Neck General: normal visual inspection and trachea midline Resp normal respiratory effort and normal air movement Effort and Inspection: able to speak in complete sentences; Negative for labored, grunting, stridor or audible wheezes Cardio regular rate and regular rhythm Extremity Extremity Narrative: Bilateral lower extremities with moderate edema but no wounds or weeping appreciated. Skin Wounds: wounds noted Wound Narrative: She has a 2 x 1.3 cm wound with 1 cm of undermining from about 5-11 o'clock in the midline of her abdomen within the pannus fold. The pannus is very large and the dependent portion is edematous. There is some redness and excoriation of the skin underneath the pannus as well. Neuro oriented x3, CN's II-XII intact bilaterally, moves all extremities and no focal motor deficits Speech: speech normal Debridement Note Debridement Note Wound debrided: Abdomen Laterality: Not Applicable Type of Debridement: Excisional debridement Anesthesia Used: 4% Lidocaine Solution Depth: Down to and including healthy tissue and in the subcutaneous layer Percentage of wound debrided: 100 Instrument Used: 5mm curette Tissue Removed: Slough, devitalized tissue Severity: Fat Layer Exposed Amount of bleeding with debridement: Mild Bleeding Controlled with: Pressure Patient tolerated procedure: Patient tolerated procedure well Post-Debridement Measurements and Additional Note: Post-Debridement Measurements/Treatment - Nurse 1 - General Ulcer Assessment Start: 03/27/23 13:20 Freq: Status: Active Protocol: MITCH Activity Type Activity Date Activity User E-sign Co-sign Detail Recorded Client Recorded Date Recorded By Document 03/27/23 13:20 DL Desktop 03/27/23 13:46 DL 03/27/23 13:20 - Today's Visit Information Type of service Initial Visit Arrival Mode Walker, Stretcher Transfer Assistance Manual Transfer Assist (Other) x2 Patient Identification Verified (Name & Yes ) Patient Requires Transmission-Based No Precautions Safety Precautions Fall Prevention Height and Weight Height 5 ft 5 in Weight 295 lb 5.818 oz Weight in Pounds 295.4 lbs Body Mass Index (BMI) 49.1 BMI Classification Obese BSA - Ramos 2.33 Vital Signs Temperature (97.8 F-99.1 F) 98.8 F Temperature Source Temporal Pulse Rate (60-100) 101 H Pulse Location Monitor Respiratory Rate (12-18) 22 H Respiratory rate source Observation Blood Pressure (90/60-120/80) 98/56 L Blood Pressure Mean 70 Source Monitor Pain Scale: 0-10 Numeric Is Patient Pain Free? Yes Lower Extremity Assessment/ Foot Assessment/ Toe Nail Assessment Left -Popliteal Doppler Multiphasic -Posterior Tibial Palpable Yes -Posterior Tibial Doppler Multiphasic -Dorsalis Pedis Palpable Yes -Dorsalis Pedis Doppler Multiphasic -Extremity Color Hyperpigmented -Hair Growth on Legs No -Hair Growth on Toes No -Temperature of Extremity Warm -Capillary Refill Greater than 3 Seconds -Dependent Rubor No -Blanched when Elevated No -Lipodermatosclerosis No -Other Deformity No -Prior Foot Ulcer No -Charcot Joint No -Prior Amputation No -Thick No -Discolored No -Deformed No -Improper Length & Hygeine No Right -Posterior Tibial Palpable Yes -Posterior Tibial Doppler Multiphasic -Dorsalis Pedis Palpable Yes -Dorsalis Pedis Doppler Multiphasic -Extremity Color Red, Hyperpigmented -Hair Growth on Legs No -Hair Growth on Toes No -Temperature of Extremity Warm -Capillary Refill Greater than 3 Seconds -Dependent Rubor No -Blanched when Elevated No -Lipodermatosclerosis No -Other Deformity No -Prior Foot Ulcer No -Charcot Joint No -Prior Amputation No -Thick No -Discolored No -Deformed No -Improper Length & Hygeine No Communication Assessment Preferred language [place] Studio Designer Required No Able to Read Yes Able to Write Yes Communication Tools None Right Hearing Abillity Hard of Hearing Left Hearing Abillity Hard of Hearing Visual Assistive Devices Glasses Teaching Assessment Preferences Verbal,Written, Demonstration Barriers to Learning None Readiness To Learn Good Willingness to Engage in Self Management Med Activies Readiness to Engage in Self Management Med Activities Anxiety Level Calm Cooperation Cooperative Perception Coherent Interest in Health Problem Asks Questions Education Importance Acknowledges Need Smoking Status Never smoker Is Patient Diabetic No Functional Assessment Recent Decline in Ability to Perform Denies Any Declines Culture/Jewish/Deckhand [place] Cultural/Jewish Needs that may affect No Treatment Plan Would you allow our hospital scrub technician to No meet you for the purpose of spiritual/ emotional support? Deckhand [place]red[employer] to contact place of nondenominational No Teaching: Wound Center Discharge Instructions -Person Taught Patient Dressing Your Wound -Person Taught Patient *Welcome to the Wound Center -Person Taught Patient WC - Nurse 1 - General Ulcer Measurement Start: 03/27/23 13:20 Freq: Status: Active Protocol: Activity Type Activity Date Activity User E-sign Co-sign Detail Recorded Client Recorded Date Recorded By Document 03/27/23 13:20 DL Desktop 03/27/23 13:46 DL 03/27/23 13:20 Wound Center Nurse 1 #1 ABD -Current Size (cm) - Length 2.1 -Current Size (cm) - Width 1 -Current Size (cm) - Depth 0.4 -Total Square Cm 2.1 -Photo Taken Yes -Undermining/Tunneling Starts (O'clock 9 ) -Undermining/Tunneling Ends (O'clock) 12 -Maximum Distance (cm) 1.1 -Classification - Thickness Full Thickness without Exposed Support Structure -Exudate Amt Medium -Exudate Type Serosanguineous -Wound Margin Distinct, Outline Attached -Granulation Amt Medium (34-66%) -Granulation Quality Red -Necrosis Amt Medium (34-66%) -Necrotic Tissue Type Adherent Slough -Structure Exposed N/A -Texture (Esther-wound Skin Appearance) Scarring,Rash -Moisture (Esther-wound Skin Appearance) No Abnormality -Color (Esther-wound Skin Appearance) No Abnormality, Erythema -Temperature (Esther-wound Skin No Abnormality Appearance) (Pt Warm) -Ulcer Cleansing Soap and Water -Foul Odor after Cleansing No Right Calf (cm) 37.1 Right Ankle (cm) 22.6 Left Calf (cm) 38.1 Left Ankle (cm) 22.9 WC - Nurse 2 - General Ulcer CM Notes Start: 03/27/23 13:20 Freq: Status: Active Protocol: Activity Type Activity Date Activity User E-sign Co-sign Detail Recorded Client Recorded Date Recorded By Document 03/27/23 15:58 PL [id number] 03/27/23 15:59 PL 03/27/23 15:58 Wound Center Nurse 2 #1 ABD -Time 14:11 -Correct Patient Yes -Correct Side, Site, Position Yes -Correct Procedure Yes -Procedure Performed Yes -Type of Procedure Debridement -Clinical Debridement Subcutaneous -Tissue Removed Subcutaneous -Post Debridement (cm) - Length 2.0 -Post Debridement (cm) - Width 1.3 -Post Debridement (cm) - Depth 0.1 -Total Square (Post) (cm) 2.60 -Area of Debridement (cm) - Length 2.0 -Area of Debridement (cm) - Width 1.3 -Total Square (Area) (cm) 2.60 -Tunneling No -Undermining/Tunneling Yes -Undermining/Tunneling Starts (O'clock 5 ) -Undermining/Tunneling Ends (O'clock) 11 -Maximum Distance (cm) 1.0 -Circular Undermining No -Wound/Ulcer Outcome Not Healed -Ulcer Cleansing Rinsed/ Irrigated with Saline -Foul Odor after Cleansing No -Bioengineered Tissue No -Bleeding Controlled with Pressure -Treatment Response Procedure Tolerated Well -Debridement - Subq, 1st 20sq cm Yes Pain Scale: 0-10 Numeric Is Patient Pain Free? Yes - Nurse 3 - General Ulcer D/C NN Start: 03/27/23 13:20 Freq: Status: Active Protocol: Activity Type Activity Date Activity User E-sign Co-sign Detail Recorded Client Recorded Date Recorded By Document 03/27/23 14:36 KW Desktop 03/27/23 14:39 KW 03/27/23 14:36 Wound Care Center Nurse 3 #1 ABD -Primary Dressing Applied Aquacel AG 4x4 -Primary Dressing Covered/Secured with Dry Gauze, Secured with Tape -Aquacel AG 4x4 1 Pain Scale: 0-10 Numeric Is Patient Pain Free? Yes WC - Visit Discharge Discharge Condition Stable Ambulatory Status Wheelchair Transportation Private Auto Medication Reconcilliation completed & No provided to patient/care provider Clinical Summary of Care Provided Yes Charges/Coding Visit Charges Office Visits / Consults: 60783 OV L3 Est 20min Procedures Integumentary [id number]: [id number] [place] subq tissue 20 sq cm/< Assessment/Plan Assessment/Plan (1) Open abdominal wall wound: CODE(S): S31.109A - Unspecified open wound of abdominal wall, unspecified quadrant without penetration into peritoneal cavity, initial encounter (2) Abdominal pannus: CODE(S): E65 - Localized adiposity (3) Type 2 diabetes mellitus: CODE(S): E11.9 - Type 2 diabetes mellitus without complications PLAN: Plan Wound was debrided and patient tolerated this well. Will apply Aquacel Ag to the wound bed and cover with foam border dressing. Change daily or at least every other day. With dressing changes, cleanse the area with Hibiclens or gentle antibacterial soap before applying a clean dressing. Change the dressing more often as needed should it become soiled. Did obtain wound cultures today. Will prescribe antibiotics as indicated per C&S. Will prescribe nystatin powder to be applied 3 times daily to the pannus folds for treatment of tinea cruris. She will return to the wound healing center in 1 week or sooner as needed.
[2023-04-03 13:13] VITALS: BP 144/62; PULSE 75; RESP 16; TEMP 36.5; BMI 49.1
--- NOTE | 2023-04-04 08:03 | PN.PCM_ITS ---
History of Present Illness Date of Service: 04/03/23 Chief Complaint: Abdominal wound History of Wound: Nerissa Bradley is a 77-year-old female who presents to the wound healing center today for evaluation management of an abdominal wound. This wound is located in the midline under her pannus. She does have a very large pannus with significant weight. she reports that this wound has been present for approximately 1 month, first came to her attention when she was admitted to the hospital recently. She thinks it is from her wheelchair hitting against the area. At home, she relies on her daughter to assist her with wound care. Since her discharge from the hospital, they have been utilizing Aquacel they were sent home with but she did run out recently. She had been receiving antifungal powder to apply while in the hospital, but does not have this at home. She denies any history of prior wounds in this area. She does have a history of superficial wounds to the bilateral lower extremities which were also noted at the time of her most recent hospitalization early February, but seem to be resolved at this time. She does wear compression stockings. She is trying to do a better job of elevating her legs but does note she cannot lay back too far without having difficulty breathing. She is diabetic but most recent A1c in 11/2022 5.4 and do not see any active medications for diabetes. She does not smoke. She does not take any blood thinners other than aspirin. Subjective Subjective Patient's daughter performs her dressing changes and she recently went out of town and was expected to have been back in town earlier this week however her travel was extended. Therefore the patient has not changed her dressing at all since she was seen here last . She is noted to have significant erythema and foul odor around the wound and throughout her pannus folds. She also did not seed cone picker the nystatin powder that I sent to her pharmacy. She said she has been trying to keep the pannus folds dry with paper towels. She does not have home health unfortunately does not qualify because she does manage to drive herself to her appointments here and to go to the store. However it is noted that she requires assistance getting from her car to the wheelchair to come into her appointments here. Objective Data Objective Data Vital Signs: Vital Signs Temp Pulse Resp BP O2 Del Method 97.7 F L 75 16 144/62 H Room Air 04/03/23 13:13 04/03/23 13:13 04/03/23 13:13 04/03/23 13:13 04/03/23 13:13 Oxygen Delivery Method Room Air Weight: 295 lb 5.818 oz Body Mass Index (BMI) 49.1 Lab / Micro Data Micro: Microbiology 03/27/23 14:20 Wound - Abdominal Gram Stain - Final 03/27/23 14:20 Wound - Abdominal Wound Culture - Final Staphylococcus simulans 03/27/23 14:20 Wound - Abdominal Anaerobic Culture - Final No anaerobic bacteria isolated. Charges/Coding Procedures Integumentary [id number]: [id number] [place] subq tissue 20 sq cm/< Physical Exam Const alert, oriented x3 and no apparent distress General Appearance: cooperative Nutritional Appearance: morbidly obese HEENT normocephalic, head/scalp atraumatic, hearing grossly normal bilaterally, external ears normal and external nose normal Eyes EOMs intact bilaterally General Eye: normal appearance of both eyes Neck General: normal visual inspection and trachea midline Resp normal respiratory effort and normal air movement Effort and Inspection: able to speak in complete sentences; Negative for labored, grunting, stridor or audible wheezes Cardio regular rate and regular rhythm Extremity Extremity Narrative: Bilateral lower extremities with moderate edema but no wounds or weeping appreciated. Skin Wounds: wounds noted Wound Narrative: She has a 2 x 1.3 cm wound with 1 cm of undermining from about 5-11 o'clock in the midline of her abdomen within the pannus fold. The pannus is very large and the dependent portion is edematous. There is diffuse erythema and excoriation of the skin in the pannus fold and around the wound Neuro oriented x3, CN's II-XII intact bilaterally, moves all extremities and no focal motor deficits Speech: speech normal Debridement Note Debridement Note Wound debrided: Abdomen Laterality: Not Applicable Type of Debridement: Excisional debridement Anesthesia Used: 4% Lidocaine Solution Depth: Down to and including healthy tissue and in the subcutaneous layer Percentage of wound debrided: 100 Instrument Used: 5mm curette Tissue Removed: Slough, devitalized tissue Severity: Fat Layer Exposed Amount of bleeding with debridement: Mild Bleeding Controlled with: Pressure Patient tolerated procedure: Patient tolerated procedure well Post-Debridement Measurements and Additional Note: Post-Debridement Measurements/Treatment WC - Nurse 1 - General Ulcer Assessment Start: 03/27/23 13:20 Freq: Status: Active Protocol: WC.LOWEXT Activity Type Activity Date Activity User E-sign Co-sign Detail Recorded Client Recorded Date Recorded By Document 03/27/23 13:20 DL Desktop 03/27/23 13:46 DL Document 04/03/23 13:13 BMF Desktop 04/03/23 13:21 BMF 03/27/23 04/03/23 13:20 13:13 WC - Today's Visit Information Type of service Initial Visit Follow-up Visit (Physician/HAT STEAMER ) Arrival Mode Walker, Wheelchair Stretcher Transfer Assistance Manual Transfer Assist (Other) x2 Patient Identification Verified (Name & Yes Yes ) Patient Requires Transmission-Based No Precautions Safety Precautions Fall Prevention Height and Weight Height 5 ft 5 in Weight 295 lb 5.818 oz Weight in Pounds 295.4 lbs Body Mass Index (BMI) 49.1 49.1 BMI Classification Obese Obese BSA - Ramos 2.33 Vital Signs Temperature (97.8 F-99.1 F) 98.8 F 97.7 F L Temperature Source Temporal Temporal Pulse Rate (60-100) 101 H 75 Pulse Location Monitor Monitor Respiratory Rate (12-18) 22 H 16 Respiratory rate source Observation Observation Oxygen Delivery Method Room Air Blood Pressure (90/60-120/80) 98/56 L 144/62 H Blood Pressure Mean (mm Hg) 70 89 Source Monitor Monitor Position Sitting Blood Pressure Location Right Arm History Since Last Visit- (Skip if this is Patient's initial visit) Have you changed medications since your No last visit? Any new allergies or adverse reactions No Had a fall/change in ADL's that may No increase risk of falls Signs or symptoms of abuse and/or No neglect since last visit Have you been in the hospital since your No last visit? Has dressing in place as prescribed Yes Has compression in place as prescribed N/A Has offloadiing in place as prescribed N/A Experienced any changes in pain level or No management Left Footwear Regular Shoe Right Footwear Regular Shoe Pain Scale: 0-10 Numeric Is Patient Pain Free? Yes Yes Lower Extremity Assessment/ Foot Assessment/ Toe Nail Assessment Left -Popliteal Doppler Multiphasic -Posterior Tibial Palpable Yes -Posterior Tibial Doppler Multiphasic -Dorsalis Pedis Palpable Yes -Dorsalis Pedis Doppler Multiphasic -Extremity Color Hyperpigmented -Hair Growth on Legs No -Hair Growth on Toes No -Temperature of Extremity Warm -Capillary Refill Greater than 3 Seconds -Dependent Rubor No -Blanched when Elevated No -Lipodermatosclerosis No -Other Deformity No -Prior Foot Ulcer No -Charcot Joint No -Prior Amputation No -Thick No -Discolored No -Deformed No -Improper Length & Hygeine No Right -Posterior Tibial Palpable Yes -Posterior Tibial Doppler Multiphasic -Dorsalis Pedis Palpable Yes -Dorsalis Pedis Doppler Multiphasic -Extremity Color Red, Hyperpigmented -Hair Growth on Legs No -Hair Growth on Toes No -Temperature of Extremity Warm -Capillary Refill Greater than 3 Seconds -Dependent Rubor No -Blanched when Elevated No -Lipodermatosclerosis No -Other Deformity No -Prior Foot Ulcer No -Charcot Joint No -Prior Amputation No -Thick No -Discolored No -Deformed No -Improper Length & Hygeine No Communication Assessment Preferred language Wallisian Manager Trading Required No Able to Read Yes Able to Write Yes Communication Tools None Right Hearing Abillity Hard of Hearing Left Hearing Abillity Hard of Hearing Visual Assistive Devices Glasses Teaching Assessment Preferences Verbal,Written, Demonstration Barriers to Learning None Readiness To Learn Good Willingness to Engage in Self Management Med Activies Readiness to Engage in Self Management Med Activities Anxiety Level Calm Cooperation Cooperative Perception Coherent Interest in Health Problem Asks Questions Education Importance Acknowledges Need Smoking Status Never smoker Is Patient Diabetic No Functional Assessment Recent Decline in Ability to Perform Denies Any Declines 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 Programming Equipment Operator to contact place of mosque No Teaching: Wound Center Discharge Instructions -Person Taught Patient Dressing Your Wound -Person Taught Patient *Welcome to the Wound Center -Person Taught Patient WC - Nurse 1 - General Ulcer Measurement Start: 03/27/23 13:20 Freq: Status: Active Protocol: Activity Type Activity Date Activity User E-sign Co-sign Detail Recorded Client Recorded Date Recorded By Document 03/27/23 13:20 DL Desktop 03/27/23 13:46 DL Document 04/03/23 13:13 BMF Desktop 04/03/23 13:21 BMF 03/27/23 04/03/23 13:20 13:13 Wound Center Nurse 1 #1 ABD -Current Size (cm) - Length 2.1 2.1 -Current Size (cm) - Width 1 1.3 -Current Size (cm) - Depth 0.4 0.6 -Total Square Cm 2.1 2.73 -Photo Taken Yes -Undermining/Tunneling Yes -Undermining/Tunneling Starts (O'clock 9 8 ) -Undermining/Tunneling Ends (O'clock) 12 1 -Maximum Distance (cm) 1.1 1.1 -Classification - Thickness Full Thickness without Exposed Support Structure -Exudate Amt Medium Medium -Exudate Type Serosanguineous Yellow/Green -Wound Margin Distinct, Distinct, Outline Outline Attached Attached -Granulation Amt Medium (34-66%) Large (67-100%) -Granulation Quality Red Red -Necrosis Amt Medium (34-66%) Small (1-33%) -Necrotic Tissue Type Adherent Slough Adherent Slough -Structure Exposed N/A -Texture (Esther-wound Skin Appearance) Scarring,Rash Assessed -Moisture (Esther-wound Skin Appearance) No Abnormality Assessed -Color (Esther-wound Skin Appearance) No Abnormality, Assessed, Erythema Erythema -Temperature (Esther-wound Skin No Abnormality No Abnormality Appearance) (Pt Warm) (Pt Warm) -Ulcer Cleansing Soap and Water Soap and Water -Foul Odor after Cleansing No No -Anesthetic Used 5% Lidocaine Gel Right Calf (cm) 37.1 Right Ankle (cm) 22.6 Left Calf (cm) 38.1 Left Ankle (cm) 22.9 WC - Nurse 2 - General Ulcer CM Notes Start: 03/27/23 13:20 Freq: Status: Active Protocol: Activity Type Activity Date Activity User E-sign Co-sign Detail Recorded Client Recorded Date Recorded By Document 03/27/23 15:58 PL [id number] 03/27/23 15:59 PL Document 04/03/23 13:40 Desktop 04/03/23 13:42 03/27/23 04/03/23 15:58 13:40 Wound Center Nurse 2 #1 ABD -Time 14:11 13:40 -Correct Patient Yes Yes -Correct Side, Site, Position Yes Yes -Correct Procedure Yes Yes -Procedure Performed Yes Yes -Type of Procedure Debridement Debridement -Clinical Debridement Subcutaneous Subcutaneous -Tissue Removed Subcutaneous Subcutaneous -Post Debridement (cm) - Length 2.0 2.0 -Post Debridement (cm) - Width 1.3 1.0 -Post Debridement (cm) - Depth 0.1 0.4 -Total Square (Post) (cm) 2.60 2.00 -Area of Debridement (cm) - Length 2.0 2.0 -Area of Debridement (cm) - Width 1.3 1.0 -Total Square (Area) (cm) 2.60 2.00 -Tunneling No No -Undermining/Tunneling Yes No -Undermining/Tunneling Starts (O'clock 5 ) -Undermining/Tunneling Ends (O'clock) 11 -Maximum Distance (cm) 1.0 -Circular Undermining No No -Wound/Ulcer Outcome Not Healed Not Healed -Ulcer Cleansing Rinsed/ Not Cleansed Irrigated with Saline -Foul Odor after Cleansing No No -Bioengineered Tissue No -Bleeding Controlled with Pressure Pressure -Treatment Response Procedure Procedure Tolerated Well Tolerated Well -Debridement - Subq, 1st 20sq cm Yes Yes Pain Scale: 0-10 Numeric Is Patient Pain Free? Yes Yes - Nurse 3 - General Ulcer D/C NN Start: 03/27/23 13:20 Freq: Status: Active Protocol: Activity Type Activity Date Activity User E-sign Co-sign Detail Recorded Client Recorded Date Recorded By Document 03/27/23 14:36 KW Desktop 03/27/23 14:39 KW Document 04/03/23 13:47 KW Desktop 04/03/23 13:48 KW 03/27/23 04/03/23 14:36 13:47 Wound Care Center Nurse 3 #1 ABD -Primary Dressing Applied Aquacel AG 4x4 Aquacel AG 4x4, Mepilex Border -Primary Dressing Covered/Secured with Dry Gauze, Secured with Tape -Aquacel AG 4x4 1 1 -Mepilex Border 1 Pain Scale: 0-10 Numeric Is Patient Pain Free? Yes Yes - Visit Discharge Discharge Condition Stable Stable Ambulatory Status Wheelchair Ambulatory Transportation Private Auto Private Auto Medication Reconcilliation completed & No No provided to patient/care provider Clinical Summary of Care Provided Yes Yes Assessment/Plan Assessment/Plan (1) Open abdominal wall wound: CODE(S): S31.109A - Unspecified open wound of abdominal wall, unspecified quadrant without penetration into peritoneal cavity, initial encounter (2) Abdominal pannus: CODE(S): E65 - Localized adiposity (3) Type 2 diabetes mellitus: CODE(S): E11.9 - Type 2 diabetes mellitus without complications PLAN: Plan Wound was debrided and patient tolerated this well. Her wound culture was positive for Staphylococcus simulations. I have prescribed doxycycline 100 mg twice daily for 14 days. This was sent to her pharmacy and she is instructed to pick this up and start it today. She was also reminded to seed cone picker the Nystatin powder that I prescribed last week and start applying that today. She is instructed to monitor for any spreading erythema, pain, excess drainage, fevers, chills, nausea, or vomiting and proceed to the ER if she develops these or any other concerning signs/symptoms. Will continue to apply Aquacel Ag to the wound bed and cover with foam border dressing. Change daily. With dressing changes, cleanse the area with Hibiclens or gentle antibacterial soap before applying a clean dressing. Change the dressing more often as needed should it become soiled. She expects her daughter to be home tomorrow. She is instructed to contact the wound center if her daughter is not able to change her dressings so we can arrange for a nurse visit to do so. Unfortunately, she does not qualify for [facility]. She will return to the wound healing center in 1 week or sooner as needed.
[2023-04-10 13:19] VITALS: BP 136/54; PULSE 78; RESP 18; TEMP 36.5; BMI 49.1
--- NOTE | 2023-04-11 07:40 | PN.PCM_ITS ---
History of Present Illness Date of Service: 04/10/23 Chief Complaint: Abdominal wound History of Wound: Nerissa Bradley is a 77-year-old female who presents to the wound healing center today for evaluation management of an abdominal wound. This wound is located in the midline under her pannus. She does have a very large pannus with significant weight. she reports that this wound has been present for approximately 1 month, first came to her attention when she was admitted to the hospital recently. She thinks it is from her wheelchair hitting against the area. At home, she relies on her daughter to assist her with wound care. Since her discharge from the hospital, they have been utilizing Aquacel they were sent home with but she did run out recently. She had been receiving antifungal powder to apply while in the hospital, but does not have this at home. She denies any history of prior wounds in this area. She does have a history of superficial wounds to the bilateral lower extremities which were also noted at the time of her most recent hospitalization early February, but seem to be resolved at this time. She does wear compression stockings. She is trying to do a better job of elevating her legs but does note she cannot lay back too far without having difficulty breathing. She is diabetic but most recent A1c in 11/2022 5.4 and do not see any active medications for diabetes. She does not smoke. She does not take any blood thinners other than aspirin. Subjective Subjective Her daughter still has not been available at home to help her with dressing changes so her dressing has not been changed. However, she notes the foam border dressing did fall off part way through the week. She has been keeping a pillow case under her pannus fold to help control moisture and this does seem to be working well. In addition, she has been taking antibiotics as prescribed. She has not been using the nystatin powder due to concern about getting it in the wound. Objective Data Objective Data Vital Signs: Vital Signs Temp Pulse Resp BP O2 Del Method 97.7 F L 78 18 136/54 H Room Air 04/10/23 13:19 04/10/23 13:19 04/10/23 13:19 04/10/23 13:19 04/10/23 13:19 Oxygen Delivery Method Room Air Weight: 295 lb 5.818 oz Body Mass Index (BMI) 49.1 Lab / Micro Data Micro: Microbiology 03/27/23 14:20 Wound - Abdominal Gram Stain - Final 03/27/23 14:20 Wound - Abdominal Wound Culture - Final Staphylococcus simulans 03/27/23 14:20 Wound - Abdominal Anaerobic Culture - Final No anaerobic bacteria isolated. Charges/Coding Procedures Integumentary [id number]: [id number] [place] subq tissue 20 sq cm/< Physical Exam Const alert, oriented x3 and no apparent distress General Appearance: cooperative Nutritional Appearance: morbidly obese HEENT normocephalic, head/scalp atraumatic, hearing grossly normal bilaterally, external ears normal and external nose normal Eyes EOMs intact bilaterally General Eye: normal appearance of both eyes Neck General: normal visual inspection and trachea midline Resp normal respiratory effort and normal air movement Effort and Inspection: able to speak in complete sentences; Negative for labored, grunting, stridor or audible wheezes Cardio regular rate and regular rhythm Extremity Extremity Narrative: Bilateral lower extremities with moderate edema but no wounds or weeping appreciated. Skin Wounds: wounds noted Wound Narrative: She has a 2 x 0.7 x 0.3 cm wound with 0.7 cm of undermining from about 5-11 o'clock in the midline of her abdomen within the pannus fold. The pannus is very large and the dependent portion is edematous. The periwound skin has significantly reduced erythema and excoriation Neuro oriented x3, CN's II-XII intact bilaterally, moves all extremities and no focal motor deficits Speech: speech normal Debridement Note Debridement Note Wound debrided: Abdomen Laterality: Not Applicable Type of Debridement: Excisional debridement Anesthesia Used: 4% Lidocaine Solution Depth: Down to and including healthy tissue and in the subcutaneous layer Percentage of wound debrided: 100 Instrument Used: 5mm curette Tissue Removed: Slough, devitalized tissue Severity: Fat Layer Exposed Amount of bleeding with debridement: Mild Bleeding Controlled with: Pressure Patient tolerated procedure: Patient tolerated procedure well Post-Debridement Measurements and Additional Note: Post-Debridement Measurements/Treatment WC - Nurse 1 - General Ulcer Assessment Start: 03/27/23 13:20 Freq: Status: Active Protocol: MITCH Activity Type Activity Date Activity User E-sign Co-sign Detail Recorded Client Recorded Date Recorded By Document 03/27/23 13:20 DL Desktop 03/27/23 13:46 DL Document 04/03/23 13:13 BMF Desktop 04/03/23 13:21 BMF Document 04/10/23 13:19 BMF Desktop 04/10/23 13:24 BMF 03/27/23 04/03/23 04/10/23 13:20 13:13 13:19 WC - Today's Visit Information Type of service Initial Visit Follow-up Visit Follow-up Visit (Physician/TELEGRAPH OFFICE TELEPHONE CLERK (Physician/TELEGRAPH OFFICE TELEPHONE CLERK ) ) Arrival Mode Walker, Wheelchair Walker, Stretcher Wheelchair Transfer Assistance Manual None Transfer Assist (Other) x2 Patient Identification Verified (Name & Yes Yes Yes ) Patient Requires Transmission-Based No No Precautions Safety Precautions Fall Prevention Height and Weight Height 5 ft 5 in Weight 295 lb 5.818 oz Weight in Pounds 295.4 lbs Body Mass Index (BMI) 49.1 49.1 49.1 BMI Classification Obese Obese Obese BSA - Ramos 2.33 Vital Signs Temperature (97.8 F-99.1 F) 98.8 F 97.7 F L 97.7 F L Temperature Source Temporal Temporal Temporal Pulse Rate (60-100) 101 H 75 78 Pulse Location Monitor Monitor Monitor Respiratory Rate (12-18) 22 H 16 18 Respiratory rate source Observation Observation Observation Oxygen Delivery Method Room Air Room Air Blood Pressure (90/60-120/80) 98/56 L 144/62 H 136/54 H Blood Pressure Mean (mm Hg) 70 89 81 Source Monitor Monitor Monitor Position Sitting Sitting Blood Pressure Location Right Arm Left Arm History Since Last Visit- (Skip if this is Patient's initial visit) Have you changed medications since your No No last visit? Any new allergies or adverse reactions No No Had a fall/change in ADL's that may No No increase risk of falls Signs or symptoms of abuse and/or No No neglect since last visit Have you been in the hospital since your No No last visit? Has dressing in place as prescribed Yes Yes Has compression in place as prescribed N/A N/A Has offloadiing in place as prescribed N/A N/A Experienced any changes in pain level or No No management Left Footwear Regular Shoe Regular Shoe Right Footwear Regular Shoe Regular Shoe Pain Scale: 0-10 Numeric Is Patient Pain Free? Yes Yes Yes Lower Extremity Assessment/ Foot Assessment/ Toe Nail Assessment Left -Popliteal Doppler Multiphasic -Posterior Tibial Palpable Yes -Posterior Tibial Doppler Multiphasic -Dorsalis Pedis Palpable Yes -Dorsalis Pedis Doppler Multiphasic -Extremity Color Hyperpigmented -Hair Growth on Legs No -Hair Growth on Toes No -Temperature of Extremity Warm -Capillary Refill Greater than 3 Seconds -Dependent Rubor No -Blanched when Elevated No -Lipodermatosclerosis No -Other Deformity No -Prior Foot Ulcer No -Charcot Joint No -Prior Amputation No -Thick No -Discolored No -Deformed No -Improper Length & Hygeine No Right -Posterior Tibial Palpable Yes -Posterior Tibial Doppler Multiphasic -Dorsalis Pedis Palpable Yes -Dorsalis Pedis Doppler Multiphasic -Extremity Color Red, Hyperpigmented -Hair Growth on Legs No -Hair Growth on Toes No -Temperature of Extremity Warm -Capillary Refill Greater than 3 Seconds -Dependent Rubor No -Blanched when Elevated No -Lipodermatosclerosis No -Other Deformity No -Prior Foot Ulcer No -Charcot Joint No -Prior Amputation No -Thick No -Discolored No -Deformed No -Improper Length & Hygeine No Communication Assessment Preferred language Setswana Cylinder Devalver Required No Able to Read Yes Able to Write Yes Communication Tools None Right Hearing Abillity Hard of Hearing Left Hearing Abillity Hard of Hearing Visual Assistive Devices Glasses Teaching Assessment Preferences Verbal,Written, Demonstration Barriers to Learning None Readiness To Learn Good Willingness to Engage in Self Management Med Activies Readiness to Engage in Self Management Med Activities Anxiety Level Calm Cooperation Cooperative Perception Coherent Interest in Health Problem Asks Questions Education Importance Acknowledges Need Smoking Status Never smoker Is Patient Diabetic No Functional Assessment Recent Decline in Ability to Perform Denies Any Declines Culture/Uatsdin/Park Superintendent Cultural/Uatsdin Needs that may affect No Treatment Plan Would you allow our hospital english instructor to No meet you for the purpose of spiritual/ emotional support? Park Superintendent to contact place of episcopalian No Teaching: Wound Center Discharge Instructions -Person Taught Patient Dressing Your Wound -Person Taught Patient *Welcome to the Wound Center -Person Taught Patient WC - Nurse 1 - General Ulcer Measurement Start: 03/27/23 13:20 Freq: Status: Active Protocol: Activity Type Activity Date Activity User E-sign Co-sign Detail Recorded Client Recorded Date Recorded By Document 03/27/23 13:20 DL Desktop 03/27/23 13:46 DL Document 04/03/23 13:13 BMF Desktop 04/03/23 13:21 [facility] Document 04/10/23 13:19 [facility] Desktop 04/10/23 13:24 [facility] 03/27/23 04/03/23 04/10/23 13:20 13:13 13:19 Wound Center Nurse 1 #1 ABD -Combined with other wound No -Current Size (cm) - Length 2.1 2.1 1.9 -Current Size (cm) - Width 1 1.3 0.5 -Current Size (cm) - Depth 0.4 0.6 0.5 -Total Square Cm 2.1 2.73 0.95 -Photo Taken Yes -Epithelialization Small 1-33% -Tunneling No -Undermining/Tunneling Yes No -Undermining/Tunneling Starts (O'clock 9 8 ) -Undermining/Tunneling Ends (O'clock) 12 1 -Maximum Distance (cm) 1.1 1.1 -Circular Undermining No -Classification - Thickness Full Thickness without Exposed Support Structure -Exudate Amt Medium Medium Medium -Exudate Type Serosanguineous Yellow/Green Serosanguineous -Wound Margin Distinct, Distinct, Distinct, Outline Outline Outline Attached Attached Attached -Granulation Amt Medium (34-66%) Large (67-100%) Large (67-100%) -Granulation Quality Red Red Red -Slough/Fibrin Yes -Necrosis Amt Medium (34-66%) Small (1-33%) Small (1-33%) -Necrotic Tissue Type Adherent Slough Adherent Slough Adherent Slough -Structure Exposed N/A -Texture (Esther-wound Skin Appearance) Scarring,Rash Assessed Assessed, Scarring -Moisture (Esther-wound Skin Appearance) No Abnormality Assessed Assessed -Color (Esther-wound Skin Appearance) No Abnormality, Assessed, Assessed Erythema Erythema -Temperature (Esther-wound Skin No Abnormality No Abnormality No Abnormality Appearance) (Pt Warm) (Pt Warm) (Pt Warm) -Tenderness on Palpation (Esther-wound No Skin Appearance) -Ulcer Cleansing Soap and Water Soap and Water Soap and Water -Foul Odor after Cleansing No No No -Anesthetic Used 5% Lidocaine 5% Lidocaine Gel Gel Right Calf (cm) 37.1 Right Ankle (cm) 22.6 Left Calf (cm) 38.1 Left Ankle (cm) 22.9 WC - Nurse 2 - General Ulcer CM Notes Start: 03/27/23 13:20 Freq: Status: Active Protocol: Activity Type Activity Date Activity User E-sign Co-sign Detail Recorded Client Recorded Date Recorded By Document 03/27/23 15:58 PL [id number] 03/27/23 15:59 PL Document 04/03/23 13:40 GM Desktop 04/03/23 13:42 GM Document 04/10/23 16:11 PL [id number] 04/10/23 16:12 PL 03/27/23 04/03/23 04/10/23 15:58 13:40 16:11 Wound Center Nurse 2 #1 ABD -Time 14:11 13:40 13:30 -Correct Patient Yes Yes Yes -Correct Side, Site, Position Yes Yes Yes -Correct Procedure Yes Yes Yes -Procedure Performed Yes Yes Yes -Type of Procedure Debridement Debridement Debridement -Clinical Debridement Subcutaneous Subcutaneous Subcutaneous -Tissue Removed Subcutaneous Subcutaneous Subcutaneous -Post Debridement (cm) - Length 2.0 2.0 2.0 -Post Debridement (cm) - Width 1.3 1.0 0.7 -Post Debridement (cm) - Depth 0.1 0.4 0.3 -Total Square (Post) (cm) 2.60 2.00 1.40 -Area of Debridement (cm) - Length 2.0 2.0 2.0 -Area of Debridement (cm) - Width 1.3 1.0 0.7 -Total Square (Area) (cm) 2.60 2.00 1.40 -Tunneling No No No -Undermining/Tunneling Yes No No -Undermining/Tunneling Starts (O'clock 5 ) -Undermining/Tunneling Ends (O'clock) 11 -Maximum Distance (cm) 1.0 -Circular Undermining No No No -Wound/Ulcer Outcome Not Healed Not Healed Not Healed -Ulcer Cleansing Rinsed/ Not Cleansed Rinsed/ Irrigated with Irrigated with Saline Saline -Foul Odor after Cleansing No No No -Bioengineered Tissue No No -Bleeding Controlled with Pressure Pressure Pressure -Treatment Response Procedure Procedure Procedure Tolerated Well Tolerated Well Tolerated Well -Debridement - Subq, 1st 20sq cm Yes Yes Yes Pain Scale: 0-10 Numeric Is Patient Pain Free? Yes Yes Yes WC - Nurse 3 - General Ulcer D/C NN Start: 03/27/23 13:20 Freq: Status: Active Protocol: Activity Type Activity Date Activity User E-sign Co-sign Detail Recorded Client Recorded Date Recorded By Document 03/27/23 14:36 KW Desktop 03/27/23 14:39 KW Document 04/03/23 13:47 KW Desktop 04/03/23 13:48 KW Document 04/10/23 13:48 [facility] Desktop 04/10/23 13:48 [facility] 03/27/23 04/03/23 04/10/23 14:36 13:47 13:48 Wound Care Center Nurse 3 #1 ABD -Ulcer Cleansing Rinsed/ Irrigated with Saline -Foul Odor after Cleansing No -Primary Dressing Applied Aquacel AG 4x4 Aquacel AG 4x4, Aquacel Extra Mepilex Border -Primary Dressing Covered/Secured with Dry Gauze, Dry Gauze, Secured with Secured with Tape Tape -Aquacel Extra 1 -Aquacel AG 4x4 1 1 -Mepilex Border 1 Treatment Response Procedure Tolerated Well Pain Scale: 0-10 Numeric Is Patient Pain Free? Yes Yes Yes WC - Visit Discharge Discharge Condition Stable Stable Stable Ambulatory Status Wheelchair Ambulatory Ambulatory, Walker, Wheelchair Transportation Private Auto Private Auto Private Auto Medication Reconcilliation completed & No No provided to patient/care provider Clinical Summary of Care Provided Yes Yes Assessment/Plan Assessment/Plan (1) Open abdominal wall wound: CODE(S): S31.109A - Unspecified open wound of abdominal wall, unspecified quadrant without penetration into peritoneal cavity, initial encounter (2) Abdominal pannus: CODE(S): E65 - Localized adiposity (3) Type 2 diabetes mellitus: CODE(S): E11.9 - Type 2 diabetes mellitus without complications PLAN: Plan Wound was debrided and patient tolerated this well. The wound has improved in appearance. She will complete doxycycline as ordered. She is encouraged to use the nystatin powder in the pannus folds. Will continue to apply Aquacel Ag to the wound bed. Will cover with dry gauze dressing instead of the foam border dressing. Change daily if possible. With dressing changes, cleanse the area with Hibiclens or gentle antibacterial soap before applying a clean dressing. Change the dressing more often as needed should it become soiled. When she does not have help at home, she is advise to do her best with applying new aquacel and gauze to the area. Continue to use the pillow case under the pannus to control the moisture as that does appear to be helping. She will return to the wound healing center in 1 week or sooner as needed.
== END 2023-04-17 23:59 | disposition home or self-care (01) ==
LOC: WC 13:15
PROVIDERS: PCP Internal Medicine; Referring Provider Internal Medicine; Visit Provider Physician Assistant
DX: L98.492 Non-pressure chronic ulcer of skin of other sites with fat layer exposed (principal); J44.9 Chronic obstructive pulmonary disease, unspecified; E66.01 Morbid (severe) obesity due to excess calories; Z68.42 Body mass index [BMI] 45.0-49.9, adult; E11.9 Type 2 diabetes mellitus without complications; Y92.512 Supermarket, store or market as the place of occurrence of the external cause; I10 Essential (primary) hypertension; E65 Localized adiposity; Z79.82 Long term (current) use of aspirin; R21 Rash and other nonspecific skin eruption; Z90.49 Acquired absence of other specified parts of digestive tract; Z98.1 Arthrodesis status
CPT/HCPCS: 11042; 87070; 87075; 87077; 87186; 87205; 99213; G0463

== ENCOUNTER 2023-04-16 06:34 | Observation (INO) | payer MEDICARE, OTHER, SELFPAY ==
[2023-04-16] VITALS (17 sets, daily range): BP systolic 92–145; BP diastolic 46–89; PULSE 60–98; RESP 12–28; TEMP 36.3–37.4; O2SAT 0–100; BMI 53.2; BMI 50.6
--- NOTE | 2023-04-16 06:36 | EKG12_ITS ---
Test Reason : SOB Blood Pressure : / mmHG Vent. Rate : 095 BPM Atrial Rate : 095 BPM P-R Int : 232 ms QRS Dur : 080 ms QT Int : 360 ms P-R-T Axes : 000 -05 035 degrees QTc Int : 452 ms Sinus rhythm with sinus arrhythmia with 1st degree A-V block Otherwise normal ECG Confirmed by ROSALIE GARRETT, FRANCIS ([id number]), copy editor JOSELIN SMART ([id number]) on 04/21/2023 6:55:53 AM Referred By: SHY Confirmed By:JUDE WIGGINS MD
--- NOTE | 2023-04-16 06:36 | RAD_ITS ---
EXAM: XR CHEST, 1 VIEW CLINICAL INDICATION: SOB TECHNIQUE: Frontal view of the chest. COMPARISON: XR Chest dated 02/21/2023 FINDINGS: LUNGS AND PLEURAL SPACES: Resolving right lower lobe atelectasis/pneumonia. Resolving small bilateral pleural effusions. HEART: Stable normal heart size. MEDIASTINUM: No mediastinal or hilar mass. BONES/JOINTS: No acute abnormality. TUBES, LINES AND DEVICES: Interval removal of the left arm PICC line catheter. RAD/Chest 1 View (Portable) IMPRESSION: Resolving right lower lobe pneumonia/atelectasis. Resolving small bilateral pleural effusions. Electronically Signed: Donte Christensen MD at 8:28 EST ,
--- NOTE | 2023-04-16 06:39 | EDS_ITS ---
HPI History of Present Illness Chief Complaint: Shortness of Breath Informant: patient and EMS Onset/Context/Timing Onset: Yesterday Context: gradual Timing: Continuous Associated Symptoms cough; Negative for fever Chest Pain: Positive for None Narrative Narrative: 77-year-old female presents from home via EMS for respiratory distress. They placed CPAP and gave a duo nebulizer treatment en route, patient states it is helping. EMS was not able to obtain any history from her, help me, help me was all they were able to get from her. The patient at this time admits to having history of COPD as well as heart problems, she states she has not necessarily felt like she had a cold lately but has a chronic cough, she denies chest discomfort, and states the edema in her legs is about the same as usual. History is very limited due to respiratory distress and presence of BiPAP. [facility] Medical History Anemia Bilateral pulmonary embolism (07/2014) Chronic obstructive pulmonary disease with hypoxia Depression Essential hypertension Morbid obesity Multiple thyroid nodules Osteomyelitis of cervical spine Postoperative atrial fibrillation (06/2014) Type 2 diabetes mellitus Home Medications ergocalciferol (vitamin D2) 1,250 mcg (50,000 unit) capsule 50,000 unit PO MAZA SUPPLEMENT 02/25/20 [History Last Taken 02/20/20] fluoxetine 20 mg capsule 20 mg PO DAILY DEPRESSION 02/25/20 [History Last Taken 02/25/20] gabapentin 100 mg capsule 100 mg PO BID NERVE PAIN 02/25/20 [History Last Taken 02/25/20] rosuvastatin 5 mg tablet (Crestor) 5 mg PO .HS 01/16/21 [History Last Taken Unknown] pantoprazole 40 mg tablet,delayed release 40 mg PO DAILY 03/12/21 [History Last Taken Unknown] metoprolol tartrate 25 mg tablet 25 mg PO .HS 02/17/23 [History Last Taken Unknown] amiodarone 200 mg tablet 200 mg PO DAILY #0 tabs 02/26/23 [Rx Last Taken Unknown] albuterol sulfate 90 mcg/actuation breath activated powder inhaler 2 inh inhalat ion .000 PRN shortness of breath 03/27/23 [History Last Taken Unknown] ammonium lactate 12 % lotion (Skin Treatment) 1 applic topical DAILY PRN dry skin 03/27/23 [History Last Taken Unknown] aspirin 81 mg tablet,delayed release (Ecotrin Low Strength) 81 mg PO DAILY 03/27/23 [History Last Taken Unknown] furosemide 40 mg tablet 40 mg PO DAILY 03/27/23 [History Last Taken Unknown] mometasone-formoterol HFA 100 mcg-5 mcg/actuation aerosol inhaler (Dulera) 2 inh inhalation BID 03/27/23 [History Last Taken Unknown] vitamin B complex and vitamin C no.20-folic acid 1 mg capsule (Renal Caps) 1 cap PO DAILY 03/27/23 [History Last Taken Unknown] nystatin 100,000 unit/gram topical powder 1 applic topical .TID #60 grams 03/28/23 [Rx Last Taken Unknown] doxycycline hyclate 100 mg capsule 100 mg PO Q12H 14 days #28 caps 04/03/23 [Rx Last Taken Unknown] Allergy/AdvReac Type Severity Reaction Status Date / Time Food Allergies: Uncoded Allergy Swelling Verified 03/27/23 13:58 ibuprofen Allergy Shortness Verified 03/27/23 13:58 of breath oxycodone HCl [From Percocet] Allergy dizziness Verified 03/27/23 13:58 procaine [From Novocain] Allergy Other Verified 03/27/23 13:58 ciprofloxacin HCl AdvReac Other Verified 03/26/21 12:41 [From Cipro] Family History Father Diabetes Surgical History History of History of cholecystectomy History of spinal fusion Social History Smoking Status: Never smoker alcohol intake: never ROS ROS ED Constitutional Constitutional ED: Denies chills or fever(s) Eyes Eyes: Denies change in vision or diplopia ENT ENT ED: Denies rhinorrhea or sore throat Cardiovascular Cardiovascular: Denies chest pain or palpitations Respiratory/Chest Respiratory/Chest: Reports cough and dyspnea Gastrointestinal Gastrointestinal: Denies abdominal pain, nausea or vomiting Genitourinary Genitourinary ED: Denies dysuria or hematuria Musculoskeletal Musculoskeletal: Denies back pain or neck pain Neurologic Neurologic: Denies headache(s), paresthesias or weakness EXAM Physical Exam Const Vital Signs: 04/16/23 06:35 04/16/23 06:42 04/16/23 06:42 Temperature 99.1 F 99.1 F Temperature Source Temporal Temporal Pulse Rate 95 93 Respiratory Rate 24 H 27 H Respiratory Effort Respiratory Pattern Blood Pressure 145/65 H 145/65 H Blood Pressure Mean 91 91 Pulse Ox 100 100 100 Oxygen Delivery Method Bi-pap Bi-pap Oxygen Flow Rate (L/min) Fraction of Inspired Oxygen (FIO2) 04/16/23 06:46 04/16/23 06:53 04/16/23 06:53 Temperature Temperature Source Pulse Rate 94 94 Respiratory Rate 26 H 26 H Respiratory Effort Short of Breath Labored Accessory Muscle Use Respiratory Pattern Tachypnea Tachypnea Tachypnea Blood Pressure Blood Pressure Mean Pulse Ox 100 Oxygen Delivery Method Bi-pap Oxygen Flow Rate (L/min) Fraction of Inspired Oxygen (FIO2) 40 04/16/23 07:57 Temperature Temperature Source Pulse Rate 92 Respiratory Rate 21 H Respiratory Effort Respiratory Pattern Blood Pressure 127/89 H Blood Pressure Mean 101 Pulse Ox 96 Oxygen Delivery Method Nasal Cannula Oxygen Flow Rate (L/min) 4 Fraction of Inspired Oxygen (FIO2) Positive well nourished and well developed Constitutional Narrative: Morbidly obese General Appearance ED: well developed HEENT Reports moist mucous membranes normocephalic and atraumatic Eyes PERRL and EOMs intact bilaterally Neck full ROM and supple Neck Narrative: No obvious JVD but obesity limits this part of the exam Resp Resp Narrative: Moderate acute respiratory distress speaking in 1-3 word sentences with BiPAP on. Diffuse expiratory wheezes. Equal breath sounds bilaterally. Trachea midline. No rales or rhonchi. Diminished throughout symmetrically. Cardio Rate: tachycardic Rhythm: abnormal rhythm irregularly irregular GI non-tender and non-distended GI Narrative: Large pannus Auscultation: normoactive bowel sounds Palpation: soft Back/Spine General Back: other FROM Extremity normal to inspection General Extremety ED: Yes edema; Negative for pulses abnormal or tenderness General Extremity: edema bilateral lower extremity Details: moderate (With changes consistent with chronic stasis dermatitis); Negative for pulses abnormal Neuro oriented x3, CN's II-XII intact bilaterally and no sensory deficits noted Sensorium / Orientation: awake and alert Motor Exam: general weakness Psych Mood & Affect: anxious Thought Process: normal thought process Skin no rashes or lesions noted and no wounds MDM MDM MDM Narrative Medical decision making narrative: Patient transition to our respiratory equipment with BiPAP, more albuterol, S lisa-Medrol given. I reviewed echocardiogram from 1.5 months ago that shows an ejection fraction of 70%, and with this in context with my clinical assessment, this is more likely to be pulmonary/COPD vein and pulmonary edema. However this is not ruled out prior to getting a workup since she did have a recent history of acute kidney injury and increased edema related to that. Labs noted, chest x-ray 1 view on my interpretation normal. Patient is in sinus rhythm different from the usual A-fib she is typically in, and has a first- degree AV block. She is doing much better on BiPAP. Plan is for admission for further treatment and evaluation. I do suspect this is a COPD exacerbation. Her ABG shows compensated chronic CO2 retention. EMS was not able to get pulse oximetry prior to getting her to the ER, and we did not take her off of oxygen to see if she was hypoxemic, but I presume that she was. History & Record Review Additional record(s) reviewed:: Prior inpatient record Lab Data Attestation: I reviewed the patient's lab results. Labs: Laboratory Results - last 24 hr 04/16/23 06:40 WBC 11.8 H RBC 4.15 L Hgb 12.6 Hct 41.6 MCV 100.2 H MCH 30.4 MCHC 30.3 L RDW Std Deviation 51.0 H RDW Coeff of Ruben 13.8 Plt Count 165 MPV 11.5 Immature Gran % (Auto) 0.600 Neut % (Auto) 94.3 H Lymph % (Auto) 3.3 L [place] % (Auto) 0.6 Eos % (Auto) 0.8 Baso % (Auto) 0.4 Absolute Neuts (auto) 11.1 H Absolute Lymphs (auto) 0.39 L Nucleated RBC % 0 Differential Comment SCANNED Sodium 142 Potassium 3.9 Chloride 109 H Carbon Dioxide 29.0 Anion Gap 4 L BUN 23 H Creatinine 1.69 H Estim Creat Clear Calc 41.26 Est GFR (MDRD) Af Amer 38 L Est GFR (MDRD) Non-Af 31 L BUN/Creatinine Ratio 13.6 Glucose 135 H Lactic Acid 3.9 H* Calcium 9.8 Troponin I High Sens 23 Rhythm Strip Rhythm Strip: Sinus Rhythm Rate: 110 Ectopy: None EKG Initial EKG: Attestation: I personally reviewed and interpreted this EKG as follows: Interpretation: Sinus Rhythm, No Acute Injury Pattern and AV Block (1st deg) Prior EKG tracings: available for review Prior: Changed Management Discussion w/another healthcare provider: Hospitalist and PCP (Dr. Mireles) Critical Care Time Critical Care Time: Yes Critical care time (excluding procedures): 30-74 minutes (33 min), Including time spent:, Discussing w/Patient &/or Family/Data Collection Associate, Discussing w/Consultants, Arranging Admission or Transfer and Performing Direct Patient Care at Bedside Discharge Plan Triage Chief Complaint: Shortness of Breath ED Provider: Luis Miguel Patel Dx/Rx/DC Orders Clinical Impression: Acute hypoxemic respiratory failure, Renal insufficiency, Acute exacerbation of chronic obstructive pulmonary disease (COPD) Prescriptions: No Action pantoprazole 40 mg tablet,delayed release (DR/EC) 40 mg PO DAILY gabapentin 100 MG capsule 100 mg PO BID ergocalciferol (vitamin D2) 50,000 UNIT capsule 50,000 unit PO MAZA Patient Comments: take 1 capsule by mouth every week fluoxetine 20 MG capsule 20 mg PO DAILY Patient Comments: depression rosuvastatin [Crestor] 5 mg Tablet 5 mg PO .HS furosemide 40 mg tablet 40 mg PO DAILY aspirin [Ecotrin Low Strength] 81 mg tablet,delayed release (DR/EC) 81 mg PO DAILY Dulera 100-5 mcg/actuation HFA aerosol inhaler 2 inh inhalation BID Renal Caps 1 mg capsule 1 cap PO DAILY albuterol sulfate 90 mcg/actuation aerosol powdr breath activated 2 inh inhalation .000 PRN (Reason: shortness of breath) ammonium lactate [Skin Treatment] 12 % lotion 1 applic topical DAILY PRN (Reason: dry skin) Patient Comments: APPLIES TO LEGS nystatin 100,000 unit/gram powder 1 applic topical .TID Qty: 60 1RF doxycycline hyclate 100 mg capsule 100 mg PO Q12H 14 Days Qty: 28 0RF metoprolol tartrate 25 mg tablet 25 mg PO .HS amiodarone 200 mg Tablet 200 mg PO DAILY Qty: 0 0RF Primary Care Provider: Sandrine Mireles Referrals: Sandrine Mireles MD [Primary Care Provider] -
[2023-04-16] MEDS: Albuterol 2.5 MG/3 ML VIAL.NEB. INHALATION ×3 (06:47)
[2023-04-16] MEDS: MethylPREDNISolone 125 MG/2 ML Vial IV (06:48)
[2023-04-16 07:03] LABS: Absolute Lymphocyte Count 0.39 X10^3/uL (0.83-4.51); Absolute Neutrophil Count 11.1 X10^3/uL (2.0-7.7); Basophil# 0.05 X10^3/uL; Basophil% 0.4 % (0-1); Eosinophils% 0.8 % (0-5); Hematocrit 41.6 % (37-47); Hemoglobin 12.6 g/dL (12.0-15.0); Lymphocyte # 0.39 X10^3/ul (0.83-4.51); Lymphocyte % 3.3 % (19-41); Mean Corp Hgb Conc 30.3 g/dL (32-36); Mean Corpuscular Hgb 30.4 pg (27.0-32.0); Mean Corpuscular Volume 100.2 fL (81-99); Mean Platelet Vol. 11.5 fl (6.2-12.0); Monocyte# 0.07 X10^3/uL; Monocyte% 0.6 % (0-10); NRBC Flagged by Analyzer 0 % (0-5); Neutrophil # 11.13 X10^3/uL (2.7-7.7); Neutrophil % 94.3 % (47-70); POSITIVE DIFFERENTIAL YES; POSITIVE MORPHOLOGY YES; Platelet Count 165 K/mm3 (150-450); RBC Distribution Width CV 13.8 % (11.6-14.6); Red Blood Count 4.15 M/mm3 (4.2-5.4); White Blood Count 11.8 K/mm3 (4.4-11.0)
[2023-04-16 07:20] LABS: Anion Gap 4 (5-15); BUN 23 mg/dL (7-18); BUN/Creat Ratio 13.6 RATIO (10-20); Calcium,Total 9.8 mg/dL (8.5-10.1); Chloride 109 mmol/L (98-107); Creatinine, Serum 1.69 mg/dL (0.55-1.02); EST Glomerular Filtration Rate 31 mL/min (>60); Est Glom Filt Rate - Afr Amer 38 mL/min (>60); Estimated Creatinine Clearance 41.26 ml/min; Glucose 135 mg/dL (74-106); Potassium 3.9 mmol/L (3.5-5.1); Sodium Level 142 mmol/L (136-145); Troponin-I HS 23 pg/mL (3.0-54.0)
[2023-04-16 07:24] LABS: Differential Indicated SCAN CRITERIA MET
[2023-04-16 07:27] LABS: Lactic Acid 3.9 mmol/L (0.4-1.9)
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
--- NOTE | 2023-04-16 07:55 | ED.RN ---
PT REQUESTING WATER. PT BIPAP PLACED ON STANDBY AND MASK REMOVED. PT PLACED ON 4L NC AND GIVEN WATER. SEE VS. PT RESPIRATIONS SLIGHTLY LABORED BUT MAINTAINING O2 SAT OF 96-97% ON 4L.
[2023-04-16 08:16] LABS: Differential Comment SCANNED
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
--- NOTE | 2023-04-16 08:42 | ED.RN ---
THIS RN AT BEDSIDE TO COMPLETE PT HOME MED LIST. PT WITH LOW BP 92/46. BP CUFF READJUSTED AND RETAKEN REPEAT BP 103/50. DR. TAYLOR INFORMED. PER PROTOCOL PT REQUIRES FLUID RESUSCITATION. DR. TAYLOR INFORMED. PER DR. TAYLOR ORDER 500ML BOLUS OF NORMAL SALINE.
[2023-04-16 08:44] LABS: BNP,B-Type NATRIURETIC PEPTIDE 271.4 pg/mL (0-100)
[2023-04-16] MEDS: 0.9% Normal Saline (500mL Bag) 500 ML 999 ML IV (08:53)
--- NOTE | 2023-04-16 08:53 | ED.RN ---
pt fluids hung per orders see mar, this rn also notified hospitalist of pt bp trend and er orders. per dr. lyles notify of repeat bp when fluids are complete. pt awake alert verbalizes no problems or needs at this time.
[2023-04-16 09:45] LABS: Base Excess 2 mmol/L (-2 to +2); Bicarbonate 26.6 mmol/L (22-26); Blood Gas Specimen Type ART; Comment 14/8; Mode Not entered; O2 Delivery Device BiPAP; PEEP 14; PO2 154 mmHG (75-100); SITE R Brach; SO2 99 % (95-99); Total Carbon Dioxide 28 mmol/L; pCO2 39.8 mmHg (35-45); pH 7.43 (7.35-7.45)
[2023-04-16 10:58] LABS: Reflex Lactate? Y
[2023-04-16 11:29] LABS: Bedside Glucose 143 mg/dL (74-106)
[2023-04-16 11:54] LABS: Lactic Acid 1.6 mmol/L (0.4-1.9)
[2023-04-16] MEDS: Ipratropium/Albuterol Sulfate 3 ML AMPUL.NEB INHALATION ×2 (13:55→20:14)
[2023-04-16] MEDS: Acetaminophen 325 MG Tablet 650 MG PO (18:38)
[2023-04-16] MEDS: Metoprolol Tartrate 25 MG Tablet PO (21:01)
[2023-04-16] MEDS: Nystatin Powder 15gm Bottle 1 APPLIC TOPICAL (21:01)
[2023-04-16] MEDS: Amiodarone 200 MG Tablet PO (21:02)
[2023-04-16] MEDS: Atorvastatin Calcium 10 MG Tablet PO (21:02)
[2023-04-16] MEDS: FLUoxetine 20 MG Capsule PO (21:02)
[2023-04-16 22:07] LABS: Mucous, Urine 0 SEEN /hpf (<or=2+); Red Blood Cells-Urine 0 SEEN /hpf (0-5); Squamous Epithelial Cells - UA 0 SEEN /hpf (5-10)
[2023-04-16] MEDS: Ceftriaxone 1 GM/50 ML BAG IV (22:08)
[2023-04-16 22:17] LABS: Color, Urine Yellow (Yellow); Glucose, Dipstick Normal (Normal); Ketone-Dipstick Negative (Negative); Leukocyte Esterase-Dipstick 500 /ul (Negative); Nitrite-Dipstick Negative (Negative); Occult Blood-Urine 150 /ul (Negative); Protein-Dipstick 30 mg/dl (Negative); Urine Bilirubin Dipstick Negative (Negative); Urine Clarity Sl. Cloudy (Clear); Urine Urobilinogen 1 mg/dl (Normal)
[2023-04-16 22:38] LABS: Bacteria 1+ /hpf (None Seen); White Blood Cells 25-50 SEEN /hpf (0-5)
[2023-04-16 22:48] LABS: Bedside Glucose 193 mg/dL (74-106)
[2023-04-17] VITALS (11 sets, daily range): BP systolic 111–137; BP diastolic 45–68; PULSE 65–99; RESP 16–20; TEMP 36.6–37.4; O2SAT 86–99
--- NOTE | 2023-04-17 00:42 | CPS ---
Pt wears bipap at home with O2 bled in. 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 pt has an TWYLA FFM.
[2023-04-17 05:53] LABS: Bedside Glucose 175 mg/dL (74-106)
[2023-04-17] MEDS: Nystatin Powder 15gm Bottle 1 APPLIC TOPICAL ×2 (06:55→13:38)
[2023-04-17] MEDS: Ipratropium/Albuterol Sulfate 3 ML AMPUL.NEB INHALATION ×3 (08:23→15:30)
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
[2023-04-17] MEDS: Furosemide 40 MG Tablet PO (08:31)
[2023-04-17] MEDS: Aspirin E.C. 81 MG Tablet PO (08:31)
[2023-04-17] MEDS: Folic Acid/Vitamin B Comp W-C 1 Capsule 1 CAP PO (08:32)
[2023-04-17] MEDS: Pantoprazole Sodium 40 MG Tablet PO (08:32)
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
[2023-04-17] MEDS: Nitrofurantoin Macrocrystals 100 MG Capsule PO (11:39)
[2023-04-17] MEDS: Amiodarone 200 MG Tablet PO (11:39)
[2023-04-17 11:54] LABS: Bedside Glucose 192 mg/dL (74-106)
[2023-04-17] MEDS: FLUoxetine 20 MG Capsule PO (13:36)
[2023-04-17] MEDS: 0.9% Saline Lock 10 ML Syringe IV (13:37)
--- NOTE | 2023-04-17 15:27 | CASEMGMT ---
Patient has order for discharge. Patient maintaining on home oxygen orders. RN CM in to discuss needs at discharge, daughter at bedside. Patient and daughter deny needs or help at discharge. Patient follows in the wound center. Patient also attends outpatient therapy. Patient and daughter denies further questions or concerns.
== END 2023-04-17 15:14 | disposition home or self-care (01) ==
LOC: ED 08:19 → PCU 09:55
PROVIDERS: Internal Medicine; Emergency Provider Emergency Medicine; PCP Internal Medicine
DX: J44.1 Chronic obstructive pulmonary disease with (acute) exacerbation (principal); I48.91 Unspecified atrial fibrillation; E66.01 Morbid (severe) obesity due to excess calories; Z68.43 Body mass index [BMI] 50.0-59.9, adult; E11.9 Type 2 diabetes mellitus without complications; R06.03 Acute respiratory distress; N28.9 Disorder of kidney and ureter, unspecified; I44.0 Atrioventricular block, first degree; Z79.82 Long term (current) use of aspirin; I10 Essential (primary) hypertension; G47.33 Obstructive sleep apnea (adult) (pediatric); Z79.899 Other long term (current) drug therapy
CPT/HCPCS: 36415; 36600; 71045; 80048; 81001; 82803; 82962; 83605; 83880; 84484; 85025; 87086; 87088; 87186; 87631; 93005; 94002; 94003; 94640; 94668; 96361; 96365; 96375; 96376; 99221; 99285; A4216; G0378

== ENCOUNTER 2023-05-08 13:02 | Outpatient (RCR) | payer MEDICARE, OTHER, SELFPAY ==
[2023-04-18 00:04] VITALS: BP 136/54; PULSE 78; RESP 18; TEMP 36.5; BMI 49.1
[2023-05-08 13:06] VITALS: BP 153/67; PULSE 97; RESP 18; TEMP 36.3; BMI 49.1
--- NOTE | 2023-05-08 13:53 | PCM.WC.PN ---
History of Present Illness Date of Service: 05/08/23 Chief Complaint: Abdominal wound History of Wound: Nerissa Bradley is a 77-year-old female who presents to the wound healing center today for evaluation management of an abdominal wound. This wound is located in the midline under her pannus. She does have a very large pannus with significant weight. she reports that this wound has been present for approximately 1 month, first came to her attention when she was admitted to the hospital recently. She thinks it is from her wheelchair hitting against the area. At home, she relies on her daughter to assist her with wound care. Since her discharge from the hospital, they have been utilizing Aquacel they were sent home with but she did run out recently. She had been receiving antifungal powder to apply while in the hospital, but does not have this at home. She denies any history of prior wounds in this area. She does have a history of superficial wounds to the bilateral lower extremities which were also noted at the time of her most recent hospitalization early February, but seem to be resolved at this time. She does wear compression stockings. She is trying to do a better job of elevating her legs but does note she cannot lay back too far without having difficulty breathing. She is diabetic but most recent A1c in 11/2022 5.4 and do not see any active medications for diabetes. She does not smoke. She does not take any blood thinners other than aspirin. Subjective Subjective Patient has missed her last few visits here. She reports this was mostly due to her being hospitalized for UTI and COPD exacerbation. She has recovered from this. She also informs me that she has been going to her PCP office for dressing changes on occasion when her daughter has not been available to do so at home. She recently ran out of her Nystatin. Just refilled it 2 days ago, has been applying again. She continues to use a pillow case or other towel to try to keep the pannus fold dry. No N/V, F/C. To her knowledge, no new drainage or other concerns around the wound. Her daughter is currently available and helping with these dressing changes. Objective Data Objective Data Vital Signs: Vital Signs Temp Pulse Resp BP O2 Del Method 97.3 F L 97 18 153/67 H Room Air 05/08/23 13:06 05/08/23 13:06 05/08/23 13:06 05/08/23 13:06 05/08/23 13:06 Oxygen Delivery Method Room Air Weight: 295 lb 5.818 oz Body Mass Index (BMI) 49.1 Charges/Coding Procedures Integumentary 111xxx-113xx: [id number] [place] subq tissue 20 sq cm/< Physical Exam Const alert and no apparent distress General Appearance: cooperative Nutritional Appearance: morbidly obese HEENT head/scalp atraumatic and moist oral mucous membranes Eyes EOMs intact bilaterally General Eye: normal appearance of both eyes Neck General: normal visual inspection and trachea midline Resp normal respiratory effort, no retractions, no use of accessory muscles and clear to auscultation bilaterally Effort and Inspection: able to speak in complete sentences; Negative for labored, grunting, stridor or audible wheezes Cardio regular rate, regular rhythm, S1 normal heart sound and S2 normal heart sound GI normal to inspection, nondistended, normoactive bowel sounds, soft to palpation, non-tender and non-distended Skin Wounds: wounds noted Wound Narrative: She has a 1.2 x 0.4 x 0.3 cm wound with resolved undermining in the midline of her abdomen within the pannus fold. The pannus is very large and the dependent portion is edematous, requires a 2 person assist to hold during debridement. There is a slight foul odor and excoriated skin in the pannus fold consistent with fungal/yeast infection. No purulence of significant drainage from the wound. Neuro oriented x3, CN's II-XII intact bilaterally, moves all extremities and no focal motor deficits Speech: speech normal Debridement Note Debridement Note Wound debrided: Abdomen Laterality: Not Applicable Type of Debridement: Excisional debridement Anesthesia Used: 4% Lidocaine Solution Depth: Down to and including healthy tissue and in the subcutaneous layer Percentage of wound debrided: 100 Instrument Used: 5mm curette Tissue Removed: Slough, devitalized tissue Severity: Fat Layer Exposed Amount of bleeding with debridement: Mild Bleeding Controlled with: Pressure Patient tolerated procedure: Patient tolerated procedure well Post-Debridement Measurements and Additional Note: Post-Debridement Measurements/Treatment WC - Nurse 1 - General Ulcer Assessment Start: 05/08/23 13:06 Freq: Status: Active Protocol: MITHC Activity Type Activity Date Activity User E-sign Co-sign Detail Recorded Client Recorded Date Recorded By Document 05/08/23 13:06 BM Desktop 03/21/24 13:17 [facility] 05/08/23 13:06 WC - Today's Visit Information Type of service Follow-up Visit (Physician/DEVELOPER SUPPORT ENGINEER ) Arrival Mode Ambulatory, Walker, Wheelchair Transfer Assistance Other Transfer Assist (Other) 1 STAND BY Patient Identification Verified (Name & Yes ) Patient Requires Transmission-Based No Precautions Height and Weight Body Mass Index (BMI) 49.1 BMI Classification Obese Vital Signs Temperature (97.8 F-99.1 F) 97.3 F L Temperature Source Temporal Pulse Rate (60-100) 97 Pulse Location Monitor Respiratory Rate (12-18) 18 Respiratory rate source Observation Oxygen Delivery Method Room Air Blood Pressure (90/60-120/80) 153/67 H Blood Pressure Mean (mm Hg) 95 Source Monitor Position Sitting Blood Pressure Location Left Arm History Since Last Visit- (Skip if this is Patient's initial visit) Have you changed medications since your Yes last visit? Any new allergies or adverse reactions No Had a fall/change in ADL's that may No increase risk of falls Signs or symptoms of abuse and/or No neglect since last visit Have you been in the hospital since your Yes last visit? Has dressing in place as prescribed Yes Has compression in place as prescribed N/A Has offloadiing in place as prescribed N/A Experienced any changes in pain level or No management Left Footwear Regular Shoe Right Footwear Regular Shoe Pain Scale: 0-10 Numeric Is Patient Pain Free? Yes - Nurse 1 - General Ulcer Measurement Start: 05/08/23 13:06 Freq: Status: Active Protocol: Activity Type Activity Date Activity User E-sign Co-sign Detail Recorded Client Recorded Date Recorded By Document 05/08/23 13:06 [facility] Desktop 05/08/23 13:17 [facility] 05/08/23 13:06 Wound Center Nurse 1 #1 ABD -Combined with other wound No -Current Size (cm) - Length 0.5 -Current Size (cm) - Width 0.3 -Current Size (cm) - Depth 0.3 -Total Square Cm 0.15 -Date of Last Picture (Recall this 05/08/23 field) -Photo Taken Yes -Epithelialization Small 1-33% -Tunneling No -Undermining/Tunneling No -Circular Undermining No -Exudate Amt Medium -Exudate Type Serosanguineous -Wound Margin Distinct, Outline Attached -Granulation Amt Large (67-100%) -Granulation Quality Red -Slough/Fibrin No -Necrosis Amt None Present (0 %) -Texture (Esther-wound Skin Appearance) Assessed, Scarring -Moisture (Esther-wound Skin Appearance) Assessed -Color (Esther-wound Skin Appearance) Assessed, Erythema -Temperature (Esther-wound Skin No Abnormality Appearance) (Pt Warm) -Tenderness on Palpation (Esther-wound No Skin Appearance) -Ulcer Cleansing Soap and Water -Foul Odor after Cleansing No -Anesthetic Used 5% Lidocaine Gel WC - Nurse 2 - General Ulcer CM Notes Start: 05/08/23 13:06 Freq: Status: Active Protocol: Activity Type Activity Date Activity User E-sign Co-sign Detail Recorded Client Recorded Date Recorded By Document 05/08/23 13:38 GM Desktop 05/08/23 13:39 05/08/23 13:38 Wound Center Nurse 2 -Time 13:38 -Correct Patient Yes -Correct Side, Site, Position Yes -Correct Procedure Yes -Procedure Performed Yes -Type of Procedure Debridement -Clinical Debridement Subcutaneous -Tissue Removed Subcutaneous -Post Debridement (cm) - Length 1.2 -Post Debridement (cm) - Width 0.4 -Post Debridement (cm) - Depth 0.3 -Total Square (Post) (cm) 0.48 -Area of Debridement (cm) - Length 1.2 -Area of Debridement (cm) - Width 0.4 -Total Square (Area) (cm) 0.48 -Tunneling No -Undermining/Tunneling No -Circular Undermining No -Wound/Ulcer Outcome Not Healed -Ulcer Cleansing Rinsed/ Irrigated with Saline -Foul Odor after Cleansing No -Bleeding Controlled with Pressure -Treatment Response Procedure Tolerated Well -Debridement - Subq, 1st 20sq cm No Pain Scale: 0-10 Numeric Is Patient Pain Free? Yes WC - Nurse 3 - General Ulcer D/C NN Start: 05/08/23 13:06 Freq: Status: Active Protocol: Activity Type Activity Date Activity User E-sign Co-sign Detail Recorded Client Recorded Date Recorded By Document 05/08/23 13:38 GM Desktop 05/08/23 13:39 05/08/23 13:38 Is Patient Pain Free? Yes Teaching: Wound Center Dressing Your Wound -Person Taught Patient -Teaching Method Discussion -Response to teaching Verbalize understanding Wound Care Center Nurse 3 #1 ABD -Ulcer Cleansing Not Cleansed -Negative Pressure Wound Therapy N/A -Primary Dressing Applied Aquacel AG 4x4, Mepilex Border -Aquacel AG 4x4 1 -Mepilex Border 1 Assessment/Plan Assessment/Plan (1) Open abdominal wall wound: CODE(S): S31.109A - Unspecified open wound of abdominal wall, unspecified quadrant without penetration into peritoneal cavity, initial encounter (2) Abdominal pannus: CODE(S): E65 - Localized adiposity (3) Type 2 diabetes mellitus: CODE(S): E11.9 - Type 2 diabetes mellitus without complications PLAN: Plan Wound was debrided and patient tolerated this well. She is encouraged to ensure she is applying the nystatin powder in the pannus folds to address yeast/fungal infection. Continue to use the pillow case under the pannus to control the moisture. Will continue to apply Aquacel Ag to the wound bed. Will cover with dry gauze dressing or foam border dressing. Change daily if possible, at least 3 times weekly if not daily. With dressing changes, cleanse the area with Hibiclens or gentle antibacterial soap before applying a clean dressing. Change the dressing more often as needed should it become soiled. If she does not have help available at home, she can call and schedule a nurse visit for at least one additional change per week. Unfortunately, does not seem she qualifies for [facility]. She will return to the wound healing center to see me in 2 weeks or sooner as needed. Again, she is instructed to call for a nurse visit if her daughter is not available to help with the dressing changes at home.
== END 2023-05-18 23:59 | disposition home or self-care (01) ==
LOC: WC 13:02
PROVIDERS: PCP Internal Medicine; Referring Provider Internal Medicine; Visit Provider Physician Assistant
DX: L98.492 Non-pressure chronic ulcer of skin of other sites with fat layer exposed (principal); E11.9 Type 2 diabetes mellitus without complications; E65 Localized adiposity; Z87.440 Personal history of urinary (tract) infections
CPT/HCPCS: 11042

== ENCOUNTER 2023-05-25 23:59 | Inpatient (IN) | payer MEDICARE, OTHER, SELFPAY ==
[2023-05-26] VITALS (19 sets, daily range): BP systolic 102–157; BP diastolic 41–93; PULSE 80–102; RESP 16–30; TEMP 36.6–38; O2SAT 88–100; BMI 54.1; BMI 52.9
--- NOTE | 2023-05-26 00:26 | EKG12_ITS ---
Test Reason : SOB Blood Pressure : / mmHG Vent. Rate : 100 BPM Atrial Rate : 100 BPM P-R Int : 262 ms QRS Dur : 080 ms QT Int : 336 ms P-R-T Axes : 062 -10 036 degrees QTc Int : 433 ms Sinus rhythm with 1st degree A-V block Otherwise normal ECG Confirmed by Martinez Kramer ([id number]), clinical editor FELICIA FERRO ([id number]) on 05/26/2023 11:14:59 AM Referred By: BRANDON Confirmed By:Martinez Kramer
--- NOTE | 2023-05-26 00:27 | EDS_ITS ---
HPI History of Present Illness Chief Complaint: Shortness of Breath Informant: patient and family (Daughter) Narrative Narrative: Daughter provides most history per patient request. She is concerned about a urinary tract infection mostly, similar symptoms to when she was septic in the past from 1. Patient has had strong smelling urine for the last 2 days, she had pain in her left kidney yesterday although that is gone today, fever today up to 100.9 as the highest measured, generally weak, and more short of breath than usual with regards to her COPD. Daughter states it is common for her to drop her oxygen saturations briefly into the 80s with mild exertion, she usually recovers quick and it took her a couple minutes longer than usual to recover tonight. Patient states she is coughing no more than usual. [facility] Medical History Abdominal pannus Anemia Apnea, sleep Bilateral pulmonary embolism (07/2014) Chronic obstructive pulmonary disease with hypoxia Depression Dyspnea on exertion Essential hypertension Left thyroid nodule Morbid obesity Multiple thyroid nodules Open abdominal wall wound Osteomyelitis of cervical spine Postoperative atrial fibrillation (06/2014) Type 2 diabetes mellitus Home Medications ergocalciferol (vitamin D2) 1,250 mcg (50,000 unit) capsule 50,000 unit PO MAZA SUPPLEMENT 02/25/20 [History Last Taken 04/15/23] fluoxetine 20 mg capsule 20 mg PO DAILY DEPRESSION 02/25/20 [History Last Taken 02/25/20] gabapentin 100 mg capsule 100 mg PO BID NERVE PAIN 02/25/20 [History Last Taken 02/25/20] rosuvastatin 5 mg tablet (Crestor) 5 mg PO .HS cholesterol 01/16/21 [History Last Taken Unknown] pantoprazole 40 mg tablet,delayed release 40 mg PO DAILY reflux 03/12/21 [History Last Taken Unknown] metoprolol tartrate 25 mg tablet 25 mg PO .HS blood pressure 02/17/23 [History Last Taken 04/15/23] amiodarone 200 mg tablet 200 mg PO DAILY heart rate #0 tabs 02/26/23 [Rx Last Taken 04/15/23] albuterol sulfate 90 mcg/actuation breath activated powder inhaler 2 inh inhalation .000 PRN shortness of breath 03/27/23 [History Last Taken 04/16/23 08:22] ammonium lactate 12 % lotion (Skin Treatment) 1 applic topical DAILY PRN dry skin 03/27/23 [History Last Taken Unknown] aspirin 81 mg tablet,delayed release (Ecotrin Low Strength) 81 mg PO DAILY heart health 03/27/23 [History Last Taken 04/15/23] furosemide 40 mg tablet 40 mg PO DAILY diuretic 03/27/23 [History Last Taken 04/15/23] mometasone-formoterol HFA 100 mcg-5 mcg/actuation aerosol inhaler (Dulera) 2 inh inhalation BID breathing 03/27/23 [History Last Taken Unknown] vitamin B complex and vitamin C no.20-folic acid 1 mg capsule (Renal Caps) 1 cap PO DAILY vitamin 03/27/23 [History Last Taken Unknown] nystatin 100,000 unit/gram topical powder 1 applic topical .TID rash #60 grams 03/28/23 [Rx Last Taken Unknown] nitrofurantoin monohydrate/macrocrystals 100 mg capsule 100 mg PO BID #10 caps 04/17/23 [Rx Last Taken Unknown] prednisone 20 mg tablet 40 mg (2 x 20 mg) PO DAILY #10 tabs 04/17/23 [Rx Last Taken Unknown] Allergy/AdvReac Type Severity Reaction Status Date / Time Food Allergies: Uncoded Allergy Swelling Verified 03/27/23 13:58 ibuprofen Allergy Shortness Verified 03/27/23 13:58 of breath oxycodone HCl [From Percocet] Allergy dizziness Verified 03/27/23 13:58 procaine [From Novocain] Allergy Other Verified 03/27/23 13:58 ciprofloxacin HCl AdvReac Other Verified 03/26/21 12:41 [From Cipro] Family History Father Diabetes Surgical History History of History of cholecystectomy History of spinal fusion Social History Smoking Status: Never smoker alcohol intake: never ROS ROS ED Constitutional Constitutional ED: Reports chills, fatigue, fever(s) and weakness Eyes Eyes: Denies change in vision or diplopia ENT ENT ED: Denies rhinorrhea or sore throat Cardiovascular Cardiovascular: Denies chest pain or palpitations Respiratory/Chest Respiratory/Chest: Reports dyspnea; Denies cough Gastrointestinal Gastrointestinal: Denies abdominal pain, diarrhea, nausea or vomiting Genitourinary Genitourinary ED: Reports as per HPI, urinary frequency and other Details: Foul- smelling urine ; Denies dysuria, genital pain or hematuria Musculoskeletal Musculoskeletal: Reports as per HPI and other Details: Back pain left, gone now. Chronic edema both legs and redness, no difference compared to the usual, not painful. ; Denies neck pain Integumentary Denies abscess or rash Neurologic Neurologic: Denies headache(s), paresthesias or weakness Psychiatric Psychiatric: Denies suicidal ideation or suicidal thoughts EXAM Physical Exam Const Vital Signs: 05/26/23 00:00 05/26/23 00:50 05/26/23 01:10 Temperature 100.3 F H 100.4 F H Temperature Source Temporal Temporal Pulse Rate 102 H 95 91 Respiratory Rate 22 H 18 21 H Respiratory Effort Respiratory Depth Respiratory Pattern Normal Blood Pressure 157/93 H 126/45 H Blood Pressure Mean 114 72 Pulse Ox 100 90 Oxygen Delivery Method Non-Rebreather Room Air Oxygen Flow Rate (L/min) 15 05/26/23 01:10 05/26/23 01:05 05/26/23 01:14 Temperature 100.4 F H Temperature Source Temporal Pulse Rate 97 Respiratory Rate 21 H Respiratory Effort Short of Breath Respiratory Depth Shallow Respiratory Pattern Tachypnea Blood Pressure 126/45 H Blood Pressure Mean 72 Pulse Ox 90 Oxygen Delivery Method Room Air Room Air Room Air Oxygen Flow Rate (L/min) 05/26/23 01:35 05/26/23 01:35 05/26/23 02:00 Temperature 99.7 F H Temperature Source Oral Pulse Rate 97 Respiratory Rate 30 H Respiratory Effort Respiratory Depth Respiratory Pattern Blood Pressure 133/70 H Blood Pressure Mean 91 Pulse Ox 88 92 97 Oxygen Delivery Method Room Air Nasal Cannula Nasal Cannula Oxygen Flow Rate (L/min) 2 3 Positive well nourished and well developed Constitutional Narrative: Morbidly obese General Appearance ED: well developed and NAD HEENT Reports moist mucous membranes normocephalic and atraumatic Eyes PERRL and EOMs intact bilaterally Neck full ROM and supple Chest Wall inspection of chest normal and palpation of chest normal Resp normal respiratory effort and clear to auscultation bilaterally Resp Narrative: Diffusely diminished throughout, otherwise clear, symmetric, mildly tachypneic but in no distress Cardio regular rate and regular rhythm Heart Sounds: murmur systolic III/ crescendo-decrescendo GI non-tender and non-distended Auscultation: normoactive bowel sounds Palpation: soft Back/Spine no CVA tenderness General Back: other FROM Extremity normal to inspection General Extremety ED: Yes edema; Negative for pulses abnormal or tenderness General Extremity: edema bilateral lower extremity Details: moderate (With bilateral symmetric changes consistent with chronic stasis dermatitis both lower legs); Negative for pulses abnormal Neuro oriented x3, CN's II-XII intact bilaterally and no sensory deficits noted Sensorium / Orientation: awake and alert Motor Exam: general weakness Skin no rashes or lesions noted and no wounds Skin Narrative: Stasis dermatitis both lower legs otherwise no rashes Sepsis Attestation Sepsis Attestation: Sepsis Ruled Out (Has infection and has fever but does not meet criteria below for organ dysfunction) MDM MDM MDM Narrative Medical decision making narrative: As the daughter is him certainly concerned that the patient could be septic from a UTI. Her blood pressure is excellent right now, so I am continuing to watch that before we bolus her with IV fluids given her chronic leg edema. Chest x- ray 1 view on my interpretation given her dyspnea is negative for pneumonia or pulmonary edema. I did a VBG to assess pH given her dyspnea possible sepsis and acidosis but it does not show acidosis, with a pH of 7.398 and a pCO2 of 45 suggesting she is a compensated chronic retainer, which is consistent with her COPD. Her urine does show infection as expected. 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 Using this as a guideline, we are empirically starting her on meropenem. Discussed with hospitalist for admission given the patient is extremely weak and unable to safely go home or even stand on her own right now. Labs noted. Pancultured. Chronic renal failure stable. Lab Data Attestation: I reviewed the patient's lab results. Labs: Laboratory Results - last 24 hr 05/26/23 05/26/23 00:35 01:38 WBC 18.2 H RBC 4.19 L Hgb 12.7 Hct 39.2 MCV 93.6 MCH 30.3 MCHC 32.4 RDW Std Deviation 45.1 H RDW Coeff of Ruben 13.2 Plt Count 148 L MPV 11.7 Immature Gran % (Auto) 0.700 Neut % (Auto) 86.1 H Lymph % (Auto) 3.4 L Tyrrell % (Auto) 9.2 Eos % (Auto) 0.2 Baso % (Auto) 0.4 Absolute Neuts (auto) 15.7 H Absolute Lymphs (auto) 0.62 L Nucleated RBC % 0 Differential Comment SCANNED Diff Path Review June foll PT 14.4 INR 1.1 APTT 30.5 Sodium 142 Potassium 4.1 Chloride 107 Carbon Dioxide 29.0 Anion Gap 6 BUN 26 H Creatinine 1.96 H Estim Creat Clear Calc 37.18 Est GFR (MDRD) Af Amer 32 L Est GFR (MDRD) Non-Af 26 L BUN/Creatinine Ratio 13.3 Glucose 129 H Lactic Acid 1.6 Calcium 9.2 Total Bilirubin 1.20 H AST 23 ALT 19 Alkaline Phosphatase 64 Troponin I High Sens 48 Total Protein 6.7 Albumin 2.9 L Globulin 3.8 Albumin/Globulin Ratio 0.8 L Urine Color Yellow Urine Clarity Cloudy Urine pH 6.0 Ur Specific [place] 1.015 Urine Protein 100 H Urine Glucose (UA) Normal Urine Ketones Negative Urine Occult Blood 250 H Urine Nitrite Negative Urine Bilirubin Negative Urine Urobilinogen Normal Ur Leukocyte Esterase 500 H Urine RBC 5-10 SEEN Urine WBC 50-100 SEEN Ur Squamous Epith Cells 0-5 SEEN Ur Transition Epith Cell 0-5 SEEN Urine Bacteria 3+ Urine Mucus 0 SEEN ABG Data ABG results: ABG 05/26/23 00:40 Specimen Type KD Sample Site Not entered O2 % 2.0 VBG pH 7.40 VBG pO2 39 VBG HCO3 28 H VBG Total CO2 29 VBG O2 Sat (Calc) 72 H VBG Base Excess 3 POC Mix VBG pCO2 Pt Tmp 44.8 O2 Delivery Device Not entered Radiography Diagnostic Testing: Clinical Impression(s) from Imaging Studies Chest X-Ray 05/26/23 00:31 IMPRESSION: No radiographic evidence of acute cardiopulmonary disease. Electronically Signed: Jg Gutiérrez MD at 1:17 EDT , Rhythm Strip Rhythm Strip: Sinus Rhythm Rate: 100 Ectopy: None EKG Initial EKG: Attestation: I personally reviewed and interpreted this EKG as follows: Interpretation: Sinus Rhythm, No Acute Injury Pattern and AV Block (First- degree) Prior EKG tracings: available for review Prior: Unchanged Management Discussion w/another healthcare provider: Hospitalist Discharge Plan Triage Chief Complaint: Shortness of Breath ED Provider: Luis Miguel Patel Dx/Rx/DC Orders Clinical Impression: Generalized weakness, Chronic obstructive pulmonary disease with hypoxia, Acute UTI Prescriptions: No Action pantoprazole 40 mg tablet,delayed release (DR/EC) 40 mg PO DAILY gabapentin 100 MG capsule 100 mg PO BID Hold Instructions: MD Ordered ergocalciferol (vitamin D2) 50,000 UNIT capsule 50,000 unit PO MAZA Patient Comments: take 1 capsule by mouth every week fluoxetine 20 MG capsule 20 mg PO DAILY Patient Comments: depression rosuvastatin [Crestor] 5 mg Tablet 5 mg PO .HS furosemide 40 mg tablet 40 mg PO DAILY aspirin [Ecotrin Low Strength] 81 mg tablet,delayed release (DR/EC) 81 mg PO DAILY Dulera 100-5 mcg/actuation HFA aerosol inhaler 2 inh inhalation BID Renal Caps 1 mg capsule 1 cap PO DAILY albuterol sulfate 90 mcg/actuation aerosol powdr breath activated 2 inh inhalation .000 PRN (Reason: shortness of breath) ammonium lactate [Skin Treatment] 12 % lotion 1 applic topical DAILY PRN (Reason: dry skin) Patient Comments: APPLIES TO LEGS nystatin 100,000 unit/gram powder 1 applic topical .TID Qty: 60 1RF metoprolol tartrate 25 mg tablet 25 mg PO .HS amiodarone 200 mg Tablet 200 mg PO DAILY Qty: 0 0RF nitrofurantoin monohyd/m-cryst 100 mg Capsule 100 mg PO BID Qty: 10 0RF prednisone 20 mg tablet 40 mg PO DAILY Qty: 10 0RF Primary Care Provider: Sandrine Mireles Referrals: Sandrine Mireles MD [Primary Care Provider] - Disposition Disposition: Acute Care Hospital [facility]
--- NOTE | 2023-05-26 00:31 | RAD_ITS ---
INDICATION: sob EXAMINATION/TECHNIQUE: X-RAY - XR Chest 1 View COMPARISON: 04/16/23. FINDINGS: LINES/DEVICES: None. LUNGS: No consolidation, edema or effusion. No pneumothorax. MEDIASTINUM AND CARDIOVASCULAR STRUCTURES: Cardiac silhouette not enlarged. BONES AND SOFT TISSUES: Thoracolumbar fixation hardware.. RAD/Chest 1 View (Portable) IMPRESSION: No radiographic evidence of acute cardiopulmonary disease. Electronically Signed: Jg Gutiérrez MD at 1:17 EDT ,
[2023-05-26 00:43] LABS: Blood Gas Specimen Type VEN; O2 Delivery Device Not entered; SITE Not entered; VBG BASE EXCESS 3 mmol/L (-1.0-3.5); VBG Bicarbonate 28 mmol/L (22-26); VBG PO2 39 mmHg (25-40); VBG SO2 72 % (50-70); VBG TCO2 29 mmol/L (23-33); VBG pCO2 44.8 mmHg (41-51)
[2023-05-26 00:47] LABS: Absolute Lymphocyte Count 0.62 X10^3/uL (0.83-4.51); Absolute Neutrophil Count 15.7 X10^3/uL (2.0-7.7); Basophil# 0.08 X10^3/uL; Basophil% 0.4 % (0-1); Eosinophil# 0.03 X10^3/uL; Eosinophils% 0.2 % (0-5); Hematocrit 39.2 % (37-47); Hemoglobin 12.7 g/dL (12.0-15.0); Lymphocyte # 0.62 X10^3/ul (0.83-4.51); Lymphocyte % 3.4 % (19-41); Mean Corp Hgb Conc 32.4 g/dL (32-36); Mean Corpuscular Hgb 30.3 pg (27.0-32.0); Mean Corpuscular Volume 93.6 fL (81-99); Mean Platelet Vol. 11.7 fl (6.2-12.0); Monocyte# 1.68 X10^3/uL; Monocyte% 9.2 % (0-10); NRBC Flagged by Analyzer 0 % (0-5); Neutrophil # 15.67 X10^3/uL (2.7-7.7); Neutrophil % 86.1 % (47-70); POSITIVE DIFFERENTIAL YES; Platelet Count 148 K/mm3 (150-450); RBC Distribution Width CV 13.2 % (11.6-14.6); RBC Distribution Width SD 45.1 fl (35.1-43.9); Red Blood Count 4.19 M/mm3 (4.2-5.4); White Blood Count 18.2 K/mm3 (4.4-11.0)
[2023-05-26] MEDS: Albuterol 2.5 MG/3 ML VIAL.NEB. INHALATION ×2 (00:48→10:33)
[2023-05-26 00:56] LABS: Differential Indicated SCAN CRITERIA MET
[2023-05-26 00:59] LABS: International Normalized Ratio 1.1; Prothrombin Time (Protime)PT. 14.4 SECONDS (11.7-14.9)
[2023-05-26 01:00] LABS: Partial Thromboplast Time 30.5 Seconds (24.1-36.2)
[2023-05-26 01:21] LABS: ALB/GLOB Ratio 0.8 RATIO (0.9-2.4); AST(SGOT) 23 U/L (15-37); Alanine Aminotransfer ALT/SGPT 19 U/L (13-56); Albumin, Serum 2.9 g/dL (3.2-5.0); Alkaline Phosphatase 64 U/L (45-117); Anion Gap 6 (5-15); BUN 26 mg/dL (7-18); BUN/Creat Ratio 13.3 RATIO (10-20); Calcium,Total 9.2 mg/dL (8.5-10.1); Chloride 107 mmol/L (98-107); Creatinine, Serum 1.96 mg/dL (0.55-1.02); EST Glomerular Filtration Rate 26 mL/min (>60); Est Glom Filt Rate - Afr Amer 32 mL/min (>60); Estimated Creatinine Clearance 37.18 ml/min; Globulin 3.8 g/dL (2.2-4.2); Glucose 129 mg/dL (74-106); Potassium 4.1 mmol/L (3.5-5.1); Protein, Total 6.7 g/dL (6.4-8.2); Sodium Level 142 mmol/L (136-145); Troponin-I HS 48 pg/mL (3.0-54.0)
[2023-05-26 01:32] LABS: Differential Comment SCANNED
[2023-05-26 01:34] LABS: Lactic Acid 1.6 mmol/L (0.4-1.9)
[2023-05-26 02:13] LABS: Mucous, Urine 0 SEEN /hpf (<or=2+)
[2023-05-26 02:15] LABS: Color, Urine Yellow (Yellow); Glucose, Dipstick Normal (Normal); Ketone-Dipstick Negative (Negative); Leukocyte Esterase-Dipstick 500 /ul (Negative); Nitrite-Dipstick Negative (Negative); Occult Blood-Urine 250 /ul (Negative); Protein-Dipstick 100 mg/dl (Negative); Specific Gravity, Urine 1.015 (1.002-1.030); Urine Bilirubin Dipstick Negative (Negative); Urine Clarity Cloudy (Clear); Urine Urobilinogen Normal (Normal)
[2023-05-26 02:24] LABS: Bacteria 3+ /hpf (None Seen); Red Blood Cells-Urine 5-10 SEEN /hpf (0-5); Squamous Epithelial Cells - UA 0-5 SEEN /hpf (5-10); Transitional Epithelial - Ur 0-5 SEEN /hpf (0-5); White Blood Cells 50-100 SEEN /hpf (0-5)
--- NOTE | 2023-05-26 02:35 | PCM.HP.STD ---
HPI - General General Date of Admission: 05/26/23 Date of Service: 05/26/23 Chief Complaint: Fatigue, malaise, dyspnea, strong smelling urine, left flank pain. HPI Narrative The patient is a 77 y/o F w/ PMHx: CKD stage IV based on GFR trending, Morbid obesity, PAF, ROBBI on BIPAP q HS, Diabetes mellitus type II, Hx VTE (DVT, BL PE), COPD, Chronic anemia, Anxiety and Depression, GERD, chronic lower pannus abdominal wound following with wound care center who presents to the [facility] ED on 05/26/23 with history of strong smelling urine over the last 2 days with left flank discomfort and fever up to 100.9 at home with increased weakness and fatigue as well as dyspnea with patient reportedly chronically intermittently dropping into the mid 80s with any exertion but then recovering with rest with ongoing chronic unchanged cough although family does report that it took her longer to recover with exertion today as far as dyspnea was concerned and hypoxia. Workup in the ED included T1 100.3, heart rate 102, BP 157/93, respiratory rate 22, initially 100% on a nonrebreather with most recent repeat vitals T1 100.4, heart rate 91, BP 126/45, respiratory rate 21, 90% on room air, CBC with WBC 18.2, Jayleen 12.7, MCV 93.6, platelet 148 with left shift and lymphopenia, unremarkable coags, VBG with pH 7.40, bicarb 28, O2 saturation 72%, CMP with BUN/creatinine 26/1.96, GFR 26, glucose 129, T. bili 1.20 otherwise hepatic profile not marked appearing, troponin 48, lactic acid 1.6, chest x-ray with no acute cardiopulmonary finding, blood culture x 2 pending per ED. In the ED patient administered DuoNeb therapy as well as meropenem 1 gm x 1 given resistance patterns noted on last UCx. [facility], LATER [facility] Medical History (Updated 05/26/23 @ 03:[address] Irais Sahni MD) Abdominal pannus Anxiety and depression Bilateral pulmonary embolism (07/2014) Chronic anemia Chronic obstructive pulmonary disease with hypoxia CKD (chronic kidney disease), stage IV Essential hypertension GERD (gastroesophageal reflux disease) History of venous thromboembolism Morbid obesity Multiple thyroid nodules Open abdominal wall wound ROBBI treated with BiPAP Osteomyelitis of cervical spine Postoperative atrial fibrillation (06/2014) Type 2 diabetes mellitus Home Medications ergocalciferol (vitamin D2) 1,250 mcg (50,000 unit) capsule 50,000 unit PO MAZA SUPPLEMENT 02/25/20 [History Last Taken 04/15/23] fluoxetine 20 mg capsule 20 mg PO DAILY DEPRESSION 02/25/20 [History Last Taken 02/25/20] gabapentin 100 mg capsule 100 mg PO BID NERVE PAIN 02/25/20 [History Last Taken 02/25/20] rosuvastatin 5 mg tablet (Crestor) 5 mg PO .HS cholesterol 01/16/21 [History Last Taken Unknown] pantoprazole 40 mg tablet,delayed release 40 mg PO DAILY reflux 03/12/21 [History Last Taken Unknown] metoprolol tartrate 25 mg tablet 25 mg PO .HS blood pressure 02/17/23 [History Last Taken 04/15/23] amiodarone 200 mg tablet 200 mg PO DAILY heart rate #0 tabs 02/26/23 [Rx Last Taken 04/15/23] albuterol sulfate 90 mcg/actuation breath activated powder inhaler 2 inh inhalation .000 PRN shortness of breath 03/27/23 [History Last Taken 04/16/23 08:22] ammonium lactate 12 % lotion (Skin Treatment) 1 applic topical DAILY PRN dry skin 03/27/23 [History Last Taken Unknown] aspirin 81 mg tablet,delayed release (Ecotrin Low Strength) 81 mg PO DAILY heart health 03/27/23 [History Last Taken 04/15/23] furosemide 40 mg tablet 40 mg PO DAILY diuretic 03/27/23 [History Last Taken 04/15/23] mometasone-formoterol HFA 100 mcg-5 mcg/actuation aerosol inhaler (Dulera) 2 inh inhalation BID breathing 03/27/23 [History Last Taken Unknown] vitamin B complex and vitamin C no.20-folic acid 1 mg capsule (Renal Caps) 1 cap PO DAILY vitamin 03/27/23 [History Last Taken Unknown] nystatin 100,000 unit/gram topical powder 1 applic topical .TID rash #60 grams 03/28/23 [Rx Last Taken Unknown] nitrofurantoin monohydrate/macrocrystals 100 mg capsule 100 mg PO BID #10 caps 04/17/23 [Rx Last Taken Unknown] prednisone 20 mg tablet 40 mg (2 x 20 mg) PO DAILY #10 tabs 04/17/23 [Rx Last Taken Unknown] Allergy/AdvReac Type Severity Reaction Status Date / Time Food Allergies: Uncoded Allergy Swelling Verified 03/27/23 13:58 ibuprofen Allergy Shortness Verified 03/27/23 13:58 of breath oxycodone HCl [From Percocet] Allergy dizziness Verified 03/27/23 13:58 procaine [From Novocain] Allergy Other Verified 03/27/23 13:58 ciprofloxacin HCl AdvReac Other Verified 03/26/21 12:41 [From Cipro] Family History (Updated 05/26/23 @ 03:[address] Irais Sahni MD) Father Diabetes Mother CAD (coronary artery disease) Heart disease Hypertension Myocardial infarction Surgical History History of History of cholecystectomy History of spinal fusion Social History (Updated 05/26/23 @ 03:[address] Irais Sahni MD) household members: family Smoking Status: Never smoker alcohol intake: never substance use type: does not use ROS ROS Narrative Admission Review of Systems: CONSTITUTIONAL: No weight loss, + fever, chills, weakness or fatigue. HEENT: Eyes: No visual loss, blurred vision, double vision or yellow sclerae. Ears, Nose, Throat: No hearing loss, sneezing, congestion, runny nose or sore throat. SKIN: No rash or itching, lesions, wounds except + significant bilateral lower extremity chronic venous stasis skin changes, abrasions, very staged ecchymoses, chronic pannus midline wound following with wound care. CARDIOVASCULAR: + Chronic edema. No chest pain, chest pressure or chest discomfort, palpitations, orthopnea, syncopal events. RESPIRATORY: + Chronic dyspnea worse with exertion, nonproductive cough, occasional wheezing. No hemoptysis. GASTROINTESTINAL: No anorexia, nausea, vomiting or diarrhea, abdominal pain, melena, BRBPR. GENITOURINARY: + Increased urinary frequency, foul-smelling urine, flank pain. No dysuria, urgency or retention. NEUROLOGICAL: No headache, dizziness, syncope, paralysis, ataxia, numbness or tingling in the extremities, focal weakness, change in bowel or bladder control, seizure. MUSCULOSKELETAL: + muscle, back pain, joint pain or stiffness. HEMATOLOGIC: + Chronic anemia, easy bleeding/bruising. LYMPHATICS: No enlarged nodes. No history of splenectomy. PSYCHIATRIC: + History of anxiety and depression. ENDOCRINOLOGIC: No reports of sweating, cold or heat intolerance. No polyuria or polydipsia. ALLERGIES: No history of asthma, hives, eczema or rhinitis. Vital Signs Vital Signs Vital Signs: 05/26/23 00:00 05/26/23 00:50 05/26/23 01:10 Temperature 100.3 F H 100.4 F H Temperature Source Temporal Temporal Pulse Rate 102 H 95 91 Respiratory Rate 22 H 18 21 H Respiratory Effort Respiratory Depth Respiratory Pattern Normal Blood Pressure 157/93 H 126/45 H Blood Pressure Mean 114 72 Pulse Ox 100 90 Oxygen Delivery Method Non-Rebreather Room Air Oxygen Flow Rate (L/min) 15 05/26/23 01:10 05/26/23 01:05 05/26/23 01:14 Temperature 100.4 F H Temperature Source Temporal Pulse Rate 97 Respiratory Rate 21 H Respiratory Effort Short of Breath Respiratory Depth Shallow Respiratory Pattern Tachypnea Blood Pressure 126/45 H Blood Pressure Mean 72 Pulse Ox 90 Oxygen Delivery Method Room Air Room Air Room Air Oxygen Flow Rate (L/min) 05/26/23 01:35 05/26/23 01:35 05/26/23 02:00 Temperature 99.7 F H Temperature Source Oral Pulse Rate 97 Respiratory Rate 30 H Respiratory Effort Respiratory Depth Respiratory Pattern Blood Pressure 133/70 H Blood Pressure Mean 91 Pulse Ox 88 92 97 Oxygen Delivery Method Room Air Nasal Cannula Nasal Cannula Oxygen Flow Rate (L/min) 2 3 Weight Weight: 335 lb 8.697 oz Body Mass Index (BMI) 54.1 Physical Exam Narrative Physical Examination: General: Awake, alert, oriented x 3 and cooperative, seated upright in the ED bed, fatigued, ill-appearing. Skin: Normal color, normal turgor, no icterus, no cyanosis except for significant bilateral lower extremity venous stasis skin changes, abrasions, occasional staged ecchymoses, intertrigo in the folds as well as midline chronic pannus wound. HEENT: AT/NC, EOMI, PERRLA, mildly dry MM, no carotid bruits or JVD noted; however thickened neck makes evaluation difficult. Lungs: Diminished, distant breath sounds likely secondary to habitus in part, mildly increased respiratory rate but no distress noted, occasional expiratory wheeze, no marked rales or rhonchi. Heart: Mildly tachycardic with regular rhythm; no gallop, rub audible. Abdomen: Soft, morbidly obese, see skin, NTTP, distant BS, difficult to discern distention and HSM given habitus. Extremities: No cyanosis, no clubbing, see skin, significant ankle to mid ralph pitting edema complicated by venous stasis disease as noted. Neurological: Patient awake, alert, oriented as noted, cognitive function intact; pupils equally reactive to light and accommodation, cranial nerves grossly normal, moving all 4 extremities, no focal deficits, strength severely globally decreased. Psychiatric: Affect appears fatigued, ill-appearing, no acute evidence of depressive or anxiety feelings but does have underlying history. Results Lab / Micro Data 05/26/23 00:35 05/26/23 00:35 Labs: Laboratory Results - last 24 hr 05/26/23 00:35: WBC 18.2 H, RBC 4.19 L, Hgb 12.7, Hct 39.2, MCV 93.6, MCH 30.3, MCHC 32.4, RDW Std Deviation 45.1 H, RDW Coeff of Ruben 13.2, Plt Count 148 L, MPV 11.7, Immature Gran % (Auto) 0.700, Neut % (Auto) 86.1 H, Lymph % (Auto) 3.4 L, [place] % (Auto) 9.2, Eos % (Auto) 0.2, Baso % (Auto) 0.4, Absolute Neuts (auto) 15.7 H, Absolute Lymphs (auto) 0.62 L, Nucleated RBC % 0, Differential Comment SCANNED, Diff Path Review June, PT 14.4, INR 1.1, APTT 30.5, Sodium 142, Potassium 4.1, Chloride 107, Carbon Dioxide 29.0, Anion Gap 6, BUN 26 H, Creatinine 1.96 H, Estim Creat Clear Calc 37.18, Est GFR (MDRD) Af Amer 32 L, Est GFR (MDRD) Non-Af 26 L, BUN/Creatinine Ratio 13.3, Glucose 129 H, Lactic Acid 1.6, Calcium 9.2, Total Bilirubin 1.20 H, AST 23, ALT 19, Alkaline Phosphatase 64, Troponin I High Sens 48, Total Protein 6.7, Albumin 2.9 L, Globulin 3.8, Albumin/Globulin Ratio 0.8 L 05/26/23 01:38: Urine Color Yellow, Urine Clarity Cloudy, Urine pH 6.0, Ur Specific [place] 1.015, Urine Protein 100 H, Urine Glucose (UA) Normal, Urine Ketones Negative, Urine Occult Blood 250 H, Urine Nitrite Negative, Urine Bilirubin Negative, Urine Urobilinogen Normal, Ur Leukocyte Esterase 500 H, Urine RBC 5-10 SEEN, Urine WBC 50-100 SEEN, Ur Squamous Epith Cells 0-5 SEEN, Ur Transition Epith Cell 0-5 SEEN, Urine Bacteria 3+, Urine Mucus 0 SEEN ABG Data ABG results: ABG 05/26/23 00:40 Specimen Type KD Sample Site Not entered O2 % 2.0 VBG pH 7.40 VBG pO2 39 VBG HCO3 28 H VBG Total CO2 29 VBG O2 Sat (Calc) 72 H VBG Base Excess 3 POC Mix VBG pCO2 Pt Tmp 44.8 O2 Delivery Device Not entered Rhythm Strip Rhythm Strip: Sinus Rhythm Rate: 100 Ectopy: None Imaging Radiology Impression Chest X-Ray 05/26/23 00:31 IMPRESSION: No radiographic evidence of acute cardiopulmonary disease. Electronically Signed: Jg Gutiérrez MD at 1:17 EDT Reading Location ID and State: [facility] / [place] Tel , Service support , Assessment & Plan Assessment/Plan (1) UTI (urinary tract infection): PLAN: Plan The patient is a 77 y/o F w/ PMHx: CKD stage IV based on GFR trending, Morbid obesity, PAF, ROBBI on BIPAP q HS, Diabetes mellitus type II, Hx VTE (DVT, BL PE), COPD, Chronic anemia, Anxiety and Depression, GERD, chronic lower pannus abdominal wound following with wound care center who presents to the [facility] ED on 05/26/23 with history of strong smelling urine over the last 2 days with left flank discomfort and fever up to 100.9 at home with increased weakness and fatigue as well as dyspnea with patient reportedly chronically intermittently dropping into the mid 80s with any exertion but then recovering with rest with ongoing chronic unchanged cough although family does report that it took her longer to recover with exertion today as far as dyspnea was concerned and hypoxia. #1. Adult FTT, Multifactorial, secondary to Acute Complicated Urinary Tract Infection w/ ESBL E. Coli history with notable resistance patterns complicated by co-morbidities as noted: Will admit to [facility], UA upon ED evaluation remarkable, pending UCx, will continue judicious IVFs, monitor I/Os, continue IV Meropenem based on most recent 04/16/23 UCx w/ transition as able pending sensitivities and speciation. Bld cx x 2 obtained in the ED. PT/OT/case management consulted for discharge planning. #2. Chronic COPD with chronic hypoxic respiratory failure (2 L NC reported, potentially nightly, BiPAP history noted also in chart): Will maintain on oxygen with wean as tolerated to home oxygen supplementation, continue ATC duonebs, PRN albuterol, HOB, IS parameters, BiPAP nightly if amenable. #3. Chronic Kidney Disease Stage IV suspected although GFR does vacillate from 15 to low 30s: Admission BUN/Cr 26/1.96, GFR 26, baseline renal function 1.4-1.9 primarily from recent trending, repeat CMP in AM. #4. Diabetes mellitus type II with chronic neuropathy: Hold oral home regimen, continue home insulin regimen, ADA diet, accu checks w/ ISS. #5. PAF: We will continue patient home metoprolol, amiodarone, currently from list does not appear to be anticoagulated but clarifying to be certain. #6. Chronic abdominal wound with persistent intertrigo: Following at the wound care center, most recent visit 05/08/2023, primarily located in the midline under the pannus, will continue Aquacel Ag to the wound bed, cover with dry gauze with change daily as well as ongoing treatment of intertrigo. Wound RN consulted. #7. Hypertension: Continue home regimen including Lasix, metoprolol, PRN hydralazine. #8. Hyperlipidemia: We will continue patient on statin therapy. #9. Morbid Obesity: Weight loss and lifestyle changes encouraged. #10. Anxiety and depression: We will continue patient home fluoxetine regimen. #11. History of VTE: No DVT, bilateral PE history, unclear exact timeline, not currently chronically anticoagulated. #12. GERD: We will continue patient on PPI. #13. ROBBI: BIPAP q HS. #14. DVT prophylaxis: Lovenox. #15. CODE status: Patient RUDDY is her daughter Neema who is present and living will is currently in place. Discussed CODE status at length including difference between FULL code, DNR-CCA and DNR-CC status. Following discussions about the differences in these status, requested Full Code status. Advanced Care Planning Face to Face Time: 16 minutes. Charges/Coding Visit Charges Inpatient E&M: 62376 Init Hosp L3 Procedures Hospitalists Procedures: 32413 Advncd Care Plan 30 Min
[2023-05-26] MEDS: Meropenem 1 GM in 0.9% Normal Saline (100mL MB+) 100 ML IV ×3 (03:19→22:16)
[2023-05-26] MEDS: Acetaminophen 325 MG Tablet 650 MG PO ×3 (05:07→22:08)
--- NOTE | 2023-05-26 05:30 | CPS ---
Home bipap set up with 2L bled in.
[2023-05-26] MEDS: Nystatin Ointment 1 APPLIC TOPICAL ×3 (06:14→22:10)
[2023-05-26 07:07] LABS: Bedside Glucose 134 mg/dL (74-106)
[2023-05-26 07:08] LABS: Absolute Lymphocyte Count 0.78 X10^3/uL (0.83-4.51); Absolute Neutrophil Count 14.6 X10^3/uL (2.0-7.7); Basophil# 0.06 X10^3/uL; Basophil% 0.3 % (0-1); Differential Indicated SCAN CRITERIA MET; Eosinophil# 0.01 X10^3/uL; Eosinophils% 0.1 % (0-5); Hematocrit 34.6 % (37-47); Hemoglobin 11.1 g/dL (12.0-15.0); Lymphocyte # 0.78 X10^3/ul (0.83-4.51); Lymphocyte % 4.5 % (19-41); Mean Corp Hgb Conc 32.1 g/dL (32-36); Mean Corpuscular Hgb 29.8 pg (27.0-32.0); Monocyte# 1.73 X10^3/uL; NRBC Flagged by Analyzer 0 % (0-5); Neutrophil # 14.61 X10^3/uL (2.7-7.7); Neutrophil % 84.4 % (47-70); POSITIVE DIFFERENTIAL YES; Platelet Count 132 K/mm3 (150-450); RBC Distribution Width CV 13.2 % (11.6-14.6); RBC Distribution Width SD 44.9 fl (35.1-43.9); Red Blood Count 3.72 M/mm3 (4.2-5.4); White Blood Count 17.3 K/mm3 (4.4-11.0)
[2023-05-26 07:37] LABS: ALB/GLOB Ratio 0.8 RATIO (0.9-2.4); AST(SGOT) 16 U/L (15-37); Alanine Aminotransfer ALT/SGPT 15 U/L (13-56); Albumin, Serum 2.5 g/dL (3.2-5.0); Alkaline Phosphatase 53 U/L (45-117); Anion Gap 7 (5-15); BUN 27 mg/dL (7-18); BUN/Creat Ratio 14.6 RATIO (10-20); Calcium,Total 9.1 mg/dL (8.5-10.1); Chloride 107 mmol/L (98-107); Creatinine, Serum 1.85 mg/dL (0.55-1.02); EST Glomerular Filtration Rate 28 mL/min (>60); Est Glom Filt Rate - Afr Amer 34 mL/min (>60); Estimated Creatinine Clearance 38.81 ml/min; Globulin 3.3 g/dL (2.2-4.2); Glucose 128 mg/dL (74-106); Potassium 3.4 mmol/L (3.5-5.1); Protein, Total 5.8 g/dL (6.4-8.2); Sodium Level 141 mmol/L (136-145)
--- NOTE | 2023-05-26 08:05 | PN.HOSP_ITS ---
Reason for Visit Reason for Visit: Diagnoses Urinary tract infection, site not specified (05/26/23) Objective Data Objective Data Vital Signs: Vital Signs Temp Pulse Resp BP Pulse Ox O2 Del Method O2 Flow Rate 99.5 F H 98 18 112/49 L 93 Nasal Cannula 2 05/26/23 04:09 05/26/23 04:09 05/26/23 04:09 05/26/23 04:09 05/26/23 04:09 05/26/23 05:28 05/26/23 05:28 Oxygen Flow Rate (L/min) 2 Oxygen Delivery Method Nasal Cannula Weight: 327 lb 9.71 oz Body Mass Index (BMI) 52.9 Intake & Output: Intake and Output for Last 24 Hours 05/24/23 05/25/23 05/26/23 23:59 23:59 23:59 Intake Total 120 / 120 Balance 120 / 120 Lab / Micro Data 05/26/23 06:46 05/26/23 06:46 Labs: Laboratory Results - last 24 hr 05/26/23 00:35: WBC 18.2 H, RBC 4.19 L, Hgb 12.7, Hct 39.2, MCV 93.6, MCH 30.3, MCHC 32.4, RDW Std Deviation 45.1 H, RDW Coeff of Ruben 13.2, Plt Count 148 L, MPV 11.7, Immature Gran % (Auto) 0.700, Neut % (Auto) 86.1 H, Lymph % (Auto) 3.4 L, [place] % (Auto) 9.2, Eos % (Auto) 0.2, Baso % (Auto) 0.4, Absolute Neuts (auto) 15.7 H, Absolute Lymphs (auto) 0.62 L, Nucleated RBC % 0, Differential Comment SCANNED, Diff Path Review June, PT 14.4, INR 1.1, APTT 30.5, Sodium 142, Potassium 4.1, Chloride 107, Carbon Dioxide 29.0, Anion Gap 6, BUN 26 H, Creatinine 1.96 H, Estim Creat Clear Calc 37.18, Est GFR (MDRD) Af Amer 32 L, Est GFR (MDRD) Non-Af 26 L, BUN/Creatinine Ratio 13.3, Glucose 129 H, Lactic Acid 1.6, Calcium 9.2, Total Bilirubin 1.20 H, AST 23, ALT 19, Alkaline Phosphatase 64, Troponin I High Sens 48, Total Protein 6.7, Albumin 2.9 L, Globulin 3.8, Albumin/Globulin Ratio 0.8 L 05/26/23 01:38: Urine Color Yellow, Urine Clarity Cloudy, Urine pH 6.0, Ur Specific [place] 1.015, Urine Protein 100 H, Urine Glucose (UA) Normal, Urine Ketones Negative, Urine Occult Blood 250 H, Urine Nitrite Negative, Urine Bilirubin Negative, Urine Urobilinogen Normal, Ur Leukocyte Esterase 500 H, Urine RBC 5-10 SEEN, Urine WBC 50-100 SEEN, Ur Squamous Epith Cells 0-5 SEEN, Ur Transition Epith Cell 0-5 SEEN, Urine Bacteria 3+, Urine Mucus 0 SEEN 05/26/23 06:11: POC Glucose 134 H 05/26/23 06:46: WBC 17.3 H, RBC 3.72 L, Hgb 11.1 L, Hct 34.6 L, MCV 93.0, MCH 29.8, MCHC 32.1, RDW Std Deviation 44.9 H, RDW Coeff of Ruben 13.2, Plt Count 132 L, MPV 11.0, Immature Gran % (Auto) 0.700, Neut % (Auto) 84.4 H, Lymph % (Auto) 4.5 L, [place] % (Auto) 10.0, Eos % (Auto) 0.1, Baso % (Auto) 0.3, Absolute Neuts (auto) 14.6 H, Absolute Lymphs (auto) 0.78 L, Nucleated RBC % 0, Sodium 141, Potassium 3.4 L, Chloride 107, Carbon Dioxide 27.0, Anion Gap 7, BUN 27 H, Creatinine 1.85 H, Estim Creat Clear Calc 38.81, Est GFR (MDRD) Af Amer 34 L, Est GFR (MDRD) Non-Af 28 L, BUN/Creatinine Ratio 14.6, Glucose 128 H, Calcium 9.1, Total Bilirubin 1.30 H, AST 16, ALT 15, Alkaline Phosphatase 53, Total Protein 5.8 L, Albumin 2.5 L, Globulin 3.3, Albumin/Globulin Ratio 0.8 L ABG Data ABG results: ABG 05/26/23 00:40 Specimen Type KD Sample Site Not entered O2 % 2.0 VBG pH 7.40 VBG pO2 39 VBG HCO3 28 H VBG Total CO2 29 VBG O2 Sat (Calc) 72 H VBG Base Excess 3 POC Mix VBG pCO2 Pt Tmp 44.8 O2 Delivery Device Not entered Radiography Diagnostic Testing: Radiology Impression Chest X-Ray 05/26/23 00:31 IMPRESSION: No radiographic evidence of acute cardiopulmonary disease. Electronically Signed: Jg Gutiérrez MD at 1:17 EDT , Rhythm Strip Rhythm Strip: Sinus Rhythm Rate: 100 Ectopy: None Physical Exam Narrative Seen and examined. Patient admitted with fever Tmax 100.9 Fahrenheit, left flank discomfort about 2 days ago which is resolved. Strong smell in the urine. History of recurrent UTI in the past. Physical exam General: Alert, Oriented x3, Cooperative HEENT: Atraumatic, PERRLA, EOMI, Normocephalic Oral: No Gingival or Mucosal Lesions/ Ulcerations Neck: Supple, No JVD, Negative Carotid Bruits Chest wall/Lungs: Air entry diminished in bilateral lung bases. No crepitation/rhonchi Cardiovascular: Regular rate, Regular Rhythm, Normal S1, Normal S2, No M/G/R Abdomen: Large abdominal panniculus. Bowel Sounds Present, Soft, Non Tender, Non-Distended : No dysuria. No renal angle tenderness. Cannot reach suprapubic region because of abdominal pannus. Extremities: Edema of lower extremity but muscles are less in bulk/mild to moderate atrophy. Skin: No rashes, No breakdown Musculoskeletal: No Tenderness to Palpation of Joints or Extremities. ROM restricted Neurological: Cranial nerves II-XII grossly intact, DTR 2+/4. No acute focal neurological deficit. Psych/Mental Status: Normal Affect, Appropriate. Assessment & Plan Assessment/Plan (1) UTI (urinary tract infection): PLAN: Plan The patient is a 77 y/o F was admitted on 05/26/23 with the strong smelling urine over the last 2 days with left flank discomfort and fever up to 100.9 Fahrenheit with history of recurrent UTI in the past. She also chronic cough and dyspnea on exertion. #1. Adult FTT, unable to do ADL, multifactorial, secondary to Acute Complicated Urinary Tract Infection w/ ESBL E. Coli history with notable resistance patterns complicated by co-morbidities as noted: Patient admitted to MedSurg floor. On IV meropenem based on the previous culture of ESBL. Blood cultures x 2 urine culture pending. #2. COPD with chronic hypoxic respiratory failure (2 L NC reported, potentially nightly, BiPAP history noted also in chart): Will maintain on oxygen with wean as tolerated to home oxygen supplementation, continue ATC duonebs, PRN albuterol, HOB, IS parameters, BiPAP nightly if amenable. #3. Chronic Kidney Disease Stage IV suspected although GFR variable from 15-30 mill per minute : Admission BUN/Cr 26/1.96, GFR 26, baseline renal function 1.4- 1.9 primarily from recent trending, repeat./Creatinine 27/1.85. #4. Diabetes mellitus type II with chronic neuropathy: Hold oral home regimen, continue home insulin regimen, ADA diet, accu checks w/ ISS. #5. PAF: continue patient home metoprolol, amiodarone, currently from list does not appear to be anticoagulated but clarifying to be certain. #6. Chronic abdominal wound with persistent intertrigo: Following at the wound care center, most recent visit 05/08/2023, primarily located in the midline under the pannus, continue Aquacel Ag to the wound bed, cover with dry gauze with change daily as well as ongoing treatment of intertrigo. Wound RN consulted. 6 #7. Hypertension: Continue home regimen including Lasix, metoprolol, PRN hydralazine. #8. Hyperlipidemia: We will continue patient on statin therapy. #9. Morbid Obesity: Weight loss and lifestyle changes encouraged. #10. Anxiety and depression: We will continue patient home fluoxetine regimen. #11. History of VTE: No DVT, bilateral PE history, unclear exact timeline, not currently chronically anticoagulated. #12. GERD: continue patient on PPI. #13. ROBBI: BIPAP q HS. #14. DVT prophylaxis: Lovenox. #15. CODE status: Patient RUDDY is her daughter Neema who is present and living will is currently in place. Discussed CODE status at length including difference between FULL code, DNR-CCA and DNR-CC status. Following discussions about the differences in these status, requested Full Code status. Charges/Coding Visit Charges Inpatient E&M: 99441 Subs Hosp L2
[2023-05-26 08:16] LABS: Differential Comment SCANNED
[2023-05-26] MEDS: Furosemide 40 MG Tablet PO (08:29)
[2023-05-26] MEDS: FLUoxetine 20 MG Capsule PO (08:30)
[2023-05-26] MEDS: Aspirin E.C. 81 MG Tablet PO (08:30)
[2023-05-26] MEDS: Enoxaparin 40 MG/0.4 ML Syringe SC ×2 (08:30→22:10)
[2023-05-26] MEDS: Pantoprazole Sodium 40 MG Tablet PO (08:30)
[2023-05-26] MEDS: Amiodarone 200 MG Tablet PO (08:30)
[2023-05-26] MEDS: Menthol/Lanolin/Calamine/Znox 113 GM Tube 1 APPLIC TOPICAL (08:35)
[2023-05-26] MEDS: Senna/Docusate Sodium 1 Tablet 2 TABLET PO ×2 (10:22→22:09)
--- NOTE | 2023-05-26 10:55 | CASEMGMT ---
RN CM Face to Face with patient for initial transition planning/care coordination assessment. RN CM introduced self and role at [facility]. Patient lying in bed, alert and oriented, daughter at beside. Patient willing to participate in assessment and is able to answer all questions appropriately. Care providers, pharmacy, and demographics verified. PCP: Aline Specialists: Douglas, director translational; Wound Center Preferred Pharmacy: [facility] Insurance: [facility], [facility] supplement Prescription Benefit: yes Living Will/HPOA: yes, daughter Neema Bradley LNOK: daughter Living Arrangements: Patient lives with daughter in a 2 story home with bed and bath on first floor. Patient has ramp to enter the home. Patient states she is independent at home. Transportation: self, daughter DME/HHC: Patient has shower chair, raised toilet, walker, rollator, wheelchair, bipap, pulse ox, and home oxygen through [facility] with POC, CM to call [facility] and verify oxygen. Patient has been [facility] in the past. Patient is attending Outpatient therapy at [facility]. Patient wishes to discharge home, denies need for home health at this time. Patient states he has no further needs or concerns at this time. CM to follow for discharge planning needs that may arise. Disposition Plan: Patient to discharge home with family support and follow-up plans in place. Lo DE LA ROSA, RN, CM
[2023-05-26 11:46] LABS: Bedside Glucose 113 mg/dL (74-106)
--- NOTE | 2023-05-26 12:09 | WOUNDNOTE ---
wound photo: under pannus
--- NOTE | 2023-05-26 15:48 | CHAPLAIN ---
Type of Pastoral Visit _x__ Initial Visit ___ Follow-up Visit ___ On-call Visit ___ General Patient Visit ___ Spiritual Assessment ___ Family Conference ___ Bereavement ___ Rapid Response ___ Code Blue ___ Other (describe below) Pastoral Care Referral From _x__ Patient ___ Family ___ Nurse ___ Physician ___ Glue Spreader ___ Floor Steward/Stewardess ___ Other (describe below) Sacrament/Intervention _x__ Active listening ___ Anointing ___ Muslim ___ Bereavement ___ Communion ___ Caryn exploration ___ ___ Life review _x__ Prayer ___ Reconciliation ___ Sacrament of Sick _x__ Supportive presence ___ Wedding ___ Other (describe below) Pastoral Comments patient remembers this edge blacker from previous visits; pt states that she is starting to feel better; pt admits that a worry of hers is that she has taxes to do yet and they will become due soon; pt admits that she has just not felt well for many weeks and never got to those things; pt welcomes presence and prayer
--- NOTE | 2023-05-26 16:14 | CASEMGMT ---
Advance Directive Validation: Noted nsg documentation that pt has both living will and HPOA documents. Neither document has been scanned into pt's EMR. This RN CM met with pt at bedside and requested these documents be brought in to be included in pt's medical record. Pt expressed understanding and states she does not have anyone at this time to bring them in. Encouraged pt to bring them in or have someone bring them in at her convenience. Mary Goddard RN [facility]
[2023-05-26] MEDS: Ipratropium/Albuterol Sulfate 3 ML AMPUL.NEB INHALATION (16:38)
[2023-05-26] MEDS: Budesonide Respules 0.5 MG/2 ML AMPUL.NEB. INHALATION (16:42)
[2023-05-26 16:58] LABS: Bedside Glucose 89 mg/dL (74-106)
--- NOTE | 2023-05-26 21:07 | CPS ---
Patient set up with own PAP machine for the night.
[2023-05-26] MEDS: Atorvastatin Calcium 10 MG Tablet PO (22:09)
[2023-05-26] MEDS: 0.9% Saline Lock 10 ML Syringe IV (22:12)
[2023-05-26 22:47] LABS: Bedside Glucose 90 mg/dL (74-106)
[2023-05-27] VITALS (13 sets, daily range): BP systolic 97–125; BP diastolic 40–75; PULSE 74–121; RESP 18–20; TEMP 36.8–37.7; O2SAT 85–97; BMI 52.8
[2023-05-27] MEDS: Nystatin Ointment 1 APPLIC TOPICAL ×3 (05:30→21:31)
[2023-05-27 06:46] LABS: Bedside Glucose 100 mg/dL (74-106)
[2023-05-27] MEDS: Budesonide Respules 0.5 MG/2 ML AMPUL.NEB. INHALATION ×2 (07:13→20:08)
[2023-05-27] MEDS: Albuterol 2.5 MG/3 ML VIAL.NEB. INHALATION ×2 (07:13→12:59)
[2023-05-27 09:08] LABS: Pathologist Review Reviewed
[2023-05-27 09:09] LABS: Pathologist Review Reviewed
[2023-05-27] MEDS: Meropenem 1 GM in 0.9% Normal Saline (100mL MB+) 100 ML IV ×2 (09:12→21:36)
[2023-05-27] MEDS: Enoxaparin 40 MG/0.4 ML Syringe SC ×2 (09:12→21:32)
[2023-05-27] MEDS: Pantoprazole Sodium 40 MG Tablet PO (09:13)
[2023-05-27] MEDS: Amiodarone 200 MG Tablet PO (09:14)
[2023-05-27] MEDS: Aspirin E.C. 81 MG Tablet PO (09:14)
[2023-05-27] MEDS: Furosemide 40 MG Tablet PO (09:14)
[2023-05-27] MEDS: FLUoxetine 20 MG Capsule PO (09:19)
[2023-05-27] MEDS: Senna/Docusate Sodium 1 Tablet 2 TABLET PO (09:19)
--- NOTE | 2023-05-27 11:42 | WOUNDNOTE ---
Pt is currently sitting up in chair. unable to assess wound at this time.
--- NOTE | 2023-05-27 14:13 | PN.HOSP_ITS ---
Reason for Visit Reason for Visit: Diagnoses Urinary tract infection, site not specified (05/26/23) Objective Data Objective Data Vital Signs: Vital Signs Temp Pulse Resp BP Pulse Ox O2 Del Method O2 Flow Rate 98.7 F 89 20 H 97/40 L 94 Nasal Cannula 2 05/27/23 12:00 05/27/23 12:59 05/27/23 12:59 05/27/23 12:00 05/27/23 12:00 05/27/23 12:00 05/27/23 12:00 Oxygen Flow Rate (L/min) 2 Oxygen Delivery Method Nasal Cannula Weight: 327 lb 6.183 oz Body Mass Index (BMI) 52.8 Intake & Output: Intake and Output for Last 24 Hours 05/25/23 05/26/23 05/27/23 23:59 23:59 23:59 Intake Total 840 / 840 580 / 580 Output Total 350 / 350 300 / 300 Balance 490 / 490 280 / 280 Lab / Micro Data 05/26/23 06:46 05/26/23 06:46 Labs: Laboratory Results - last 24 hr 05/26/23 00:35: Diff Path Review Reviewed 05/26/23 06:46: Diff Path Review Reviewed 05/26/23 16:40: POC Glucose 89 05/26/23 22:13: POC Glucose 90 05/27/23 06:23: POC Glucose 100 Micro: Microbiology 05/26/23 01:38 Urine, Random Urine Culture - Preliminary GNR lactose bookkeeping manager 05/26/23 01:14 Blood Culture (Wb) - Anticubital Right Blood Culture - Preliminary GNR lactose bookkeeping manager 05/26/23 00:35 Blood Culture (Wb) - Anticubital Right Blood Culture - Preliminary GNR lactose bookkeeping manager 05/26/23 05:25 Mucosa - Nasopharyngeal Respiratory Panel (PCR) - Final Radiography Diagnostic Testing: Radiology Impression Chest X-Ray 05/26/23 00:31 IMPRESSION: No radiographic evidence of acute cardiopulmonary disease. Electronically Signed: Jg Gutiérrez MD at 1:17 EDT , Rhythm Strip Rhythm Strip: Sinus Rhythm Rate: 100 Ectopy: None Physical Exam Narrative Seen and examined. No fever since admission. Urine and blood culture positive of gram-negative flora. History of recurrent UTI in the past. Discussed with the daughter in the room. Physical exam General: Alert, Oriented x3, Cooperative HEENT: Atraumatic, PERRLA, EOMI, Normocephalic Oral: No Gingival or Mucosal Lesions/ Ulcerations Neck: Supple, No JVD, Negative Carotid Bruits Chest wall/Lungs: Air entry diminished in bilateral lung bases. No crepitation/rhonchi Cardiovascular: Regular rate, Regular Rhythm, Normal S1, Normal S2, No M/G/R Abdomen: Large abdominal panniculus. Bowel Sounds Present, Soft, Non Tender, Non-Distended : No dysuria. No renal angle tenderness. Extremities: Edema of lower extremity but muscles are less in bulk/mild to moderate atrophy. Skin: Dry chronic wound under large abdominal pannus. No active discharge Musculoskeletal: No Tenderness to Palpation of Joints or Extremities. ROM restricted Neurological: Cranial nerves II-XII grossly intact, DTR 2+/4. No acute focal neurological deficit. Psych/Mental Status: Flat affect. Assessment & Plan Assessment/Plan (1) UTI (urinary tract infection): PLAN: Plan The patient is a 77 y/o F was admitted on 05/26/23 with the strong smelling urine over the last 2 days with left flank discomfort and fever up to 100.9 Fahrenheit with history of recurrent UTI in the past. She also chronic cough and dyspnea on exertion. #1. Adult FTT, unable to do ADL, multifactorial, secondary to Acute Complicated Urinary Tract Infection w/ ESBL E. Coli history with notable resistance patterns complicated by co-morbidities as noted: Patient admitted to MedSurg floor. On IV meropenem based on the previous culture of ESBL. Blood cultures x 2 urine culture pending. 05/26: Blood cultures x 2 shows gram-negative rods in aerobic and anaerobic bottles. Urine culture gram-negative flora [id number] colonies. Currently on broad-spectrum antibiotic IV meropenem. Consult ID requested. Patient has leukocytosis. #2. COPD with chronic hypoxic respiratory failure (2 L NC reported, potentially nightly, BiPAP history noted also in chart): Will maintain on oxygen with wean as tolerated to home oxygen supplementation, continue ATC duonebs, PRN albuterol, HOB, IS parameters, BiPAP nightly if amenable. 4/9: No acute issues. #3. Chronic Kidney Disease Stage IV suspected although GFR variable from 15-30 mill per minute : Admission BUN/Cr 26/1.96, GFR 26, baseline renal function 1.4- 1.9 primarily from recent trending, repeat./Creatinine 27/1.85. #4. Diabetes mellitus type II with chronic neuropathy: Hold oral home regimen, continue home insulin regimen, ADA diet, accu checks w/ ISS. #5. PAF: continue patient home metoprolol, amiodarone, currently from list does not appear to be anticoagulated but clarifying to be certain. #6. Chronic abdominal wound with persistent intertrigo: Following at the wound care center, most recent visit 05/08/2023, in the midline under the pannus, continue Aquacel Ag to the wound bed 05/26: Discussed with the wound not Darshana. Wound photos reviewed. A small dry ulcer. Wound dressing as per recommendation. #7. Hypertension: Continue home regimen including Lasix, metoprolol, PRN hydralazine. #8. Hyperlipidemia: We will continue patient on statin therapy. #9. Morbid Obesity: Weight loss and lifestyle changes encouraged. #10. Anxiety and depression: We will continue patient home fluoxetine regimen. #11. History of VTE: No DVT, bilateral PE history, unclear exact timeline, not currently chronically anticoagulated. #12. GERD: continue patient on PPI. #13. ROBBI: BIPAP q HS. #14. DVT prophylaxis: Lovenox. #15. CODE status: Patient RUDDY is her daughter Neema who is present and living will is currently in place. Discussed CODE status at length including difference between FULL code, DNR-CCA and DNR-CC status. Following discussions about the differences in these status, requested Full Code status. Charges/Coding Visit Charges Inpatient E&M: 41768 Subs Hosp L2
[2023-05-27] MEDS: Acetaminophen 325 MG Tablet 650 MG PO (21:29)
[2023-05-27] MEDS: 0.9% Saline Lock 10 ML Syringe IV (21:30)
[2023-05-27] MEDS: Metoprolol Tartrate 25 MG Tablet PO (21:31)
[2023-05-27] MEDS: Atorvastatin Calcium 10 MG Tablet PO (21:31)
--- NOTE | 2023-05-27 21:41 | EKG12_ITS ---
Test Reason : RHYTHM CHANGE Blood Pressure : / mmHG Vent. Rate : 091 BPM Atrial Rate : 091 BPM P-R Int : 248 ms QRS Dur : 094 ms QT Int : 368 ms P-R-T Axes : 056 000 036 degrees QTc Int : 452 ms Sinus rhythm with 1st degree A-V block Otherwise normal ECG When compared with ECG of 26-MAY-2023 00:28, No significant change was found Confirmed by Martinez Kramer ([id number]), editorial intern FELICIA FERRO ([id number]) on 05/28/2023 10:41:32 AM Referred By: Confirmed By:Martinez Kramer
[2023-05-28] VITALS (13 sets, daily range): BP systolic 116–151; BP diastolic 50–92; PULSE 67–118; RESP 16–22; TEMP 36.5–36.8; O2SAT 95–97; BMI 53.9
--- NOTE | 2023-05-28 01:38 | EKG12_ITS ---
Test Reason : A-FIB Blood Pressure : / mmHG Vent. Rate : 113 BPM Atrial Rate : 000 BPM P-R Int : 000 ms QRS Dur : 094 ms QT Int : 342 ms P-R-T Axes : 000 -09 047 degrees QTc Int : 469 ms Atrial fibrillation with rapid ventricular response Abnormal ECG Confirmed by Martinez Kramer ([id number]), field map editor FELICIA FERRO ([id number]) on 05/28/2023 11:36:40 AM Referred By: Sandrine Mireles Confirmed By:Martinez Kramer
--- NOTE | 2023-05-28 03:09 | CPS ---
Pt using home bipap. with 2 L O2 bled in.
[2023-05-28] MEDS: Acetaminophen 325 MG Tablet 650 MG PO (03:56)
[2023-05-28] MEDS: Nystatin Ointment 1 APPLIC TOPICAL ×2 (06:22→16:25)
[2023-05-28] MEDS: Amiodarone 200 MG Tablet PO (06:49)
[2023-05-28] MEDS: Budesonide Respules 0.5 MG/2 ML AMPUL.NEB. INHALATION ×2 (06:55→19:42)
[2023-05-28 07:17] LABS: Absolute Lymphocyte Count 0.79 X10^3/uL (0.83-4.51); Absolute Neutrophil Count 6.3 X10^3/uL (2.0-7.7); Basophil# 0.06 X10^3/uL; Basophil% 0.7 % (0-1); Eosinophil# 0.28 X10^3/uL; Eosinophils% 3.3 % (0-5); Hematocrit 35.1 % (37-47); Lymphocyte # 0.79 X10^3/ul (0.83-4.51); Lymphocyte % 9.2 % (19-41); Mean Corp Hgb Conc 31.3 g/dL (32-36); Mean Corpuscular Hgb 29.6 pg (27.0-32.0); Mean Corpuscular Volume 94.6 fL (81-99); Mean Platelet Vol. 12.1 fl (6.2-12.0); Monocyte# 1.15 X10^3/uL; Monocyte% 13.4 % (0-10); NRBC Flagged by Analyzer 0 % (0-5); Neutrophil # 6.26 X10^3/uL (2.7-7.7); Neutrophil % 72.7 % (47-70); Platelet Count 100 K/mm3 (150-450); RBC Distribution Width CV 13.2 % (11.6-14.6); RBC Distribution Width SD 45.6 fl (35.1-43.9); Red Blood Count 3.71 M/mm3 (4.2-5.4); White Blood Count 8.6 K/mm3 (4.4-11.0)
[2023-05-28] MEDS: FLUoxetine 20 MG Capsule PO (07:49)
[2023-05-28] MEDS: Pantoprazole Sodium 40 MG Tablet PO (07:50)
[2023-05-28] MEDS: Aspirin E.C. 81 MG Tablet PO (07:50)
[2023-05-28] MEDS: Enoxaparin 40 MG/0.4 ML Syringe SC ×2 (07:50→21:39)
[2023-05-28] MEDS: Furosemide 40 MG Tablet PO (07:50)
[2023-05-28 07:53] LABS: Anion Gap 3 (5-15); BUN 26 mg/dL (7-18); BUN/Creat Ratio 14.4 RATIO (10-20); Calcium,Total 9.2 mg/dL (8.5-10.1); Chloride 108 mmol/L (98-107); EST Glomerular Filtration Rate 29 mL/min (>60); Est Glom Filt Rate - Afr Amer 35 mL/min (>60); Estimated Creatinine Clearance 40.41 ml/min; Glucose 109 mg/dL (74-106); Potassium 3.6 mmol/L (3.5-5.1); Sodium Level 141 mmol/L (136-145)
[2023-05-28] MEDS: Meropenem 1 GM in 0.9% Normal Saline (100mL MB+) 100 ML IV ×2 (09:30→21:39)
--- NOTE | 2023-05-28 10:35 | PCM.PN.HOSP ---
Reason for Visit Reason for Visit: Diagnoses Urinary tract infection, site not specified (05/26/23) Objective Data Objective Data Vital Signs: Vital Signs Temp Pulse Resp BP Pulse Ox O2 Del Method O2 Flow Rate 98.3 F 67 16 121/59 H 97 Nasal Cannula 2 05/28/23 07:46 05/28/23 07:46 05/28/23 07:46 05/28/23 07:46 05/28/23 07:46 05/28/23 07:46 05/28/23 07:46 FiO2 94 05/27/23 18:00 Oxygen Flow Rate (L/min) 2 Oxygen Delivery Method Nasal Cannula Weight: 334 lb 7.06 oz Body Mass Index (BMI) 53.9 Intake & Output: Intake and Output for Last 24 Hours 05/26/23 05/27/23 05/28/23 23:59 23:59 23:59 Intake Total 840 / 840 1100 / 1100 120 / 120 Output Total 350 / 350 950 / 950 200 / 200 Balance 490 / 490 150 / 150 -80 / -80 Lab / Micro Data 05/28/23 06:35 05/28/23 06:35 Labs: Laboratory Results - last 24 hr 05/28/23 06:35: WBC 8.6, RBC 3.71 L, Hgb 11.0 L, Hct 35.1 L, MCV 94.6, MCH 29.6, MCHC 31.3 L, RDW Std Deviation 45.6 H, RDW Coeff of Ruben 13.2, Plt Count 100 L, MPV 12.1 H, Immature Gran % (Auto) 0.700, Neut % (Auto) 72.7 H, Lymph % (Auto) 9.2 L, [place] % (Auto) 13.4 H, Eos % (Auto) 3.3, Baso % (Auto) 0.7, Absolute Neuts (auto) 6.3, Absolute Lymphs (auto) 0.79 L, Nucleated RBC % 0, Sodium 141, Potassium 3.6, Chloride 108 H, Carbon Dioxide 30.0, Anion Gap 3 L, BUN 26 H, Creatinine 1.80 H, Estim Creat Clear Calc 40.41, Est GFR (MDRD) Af Amer 35 L, Est GFR (MDRD) Non-Af 29 L, BUN/Creatinine Ratio 14.4, Glucose 109 H, Calcium 9.2 Micro: Microbiology 05/26/23 01:38 Urine, Random Urine Culture - Preliminary Escherichia coli 05/26/23 01:14 Blood Culture (Wb) - Anticubital Right Blood Culture - Final GNR lactose computer console operator 05/26/23 00:35 Blood Culture (Wb) - Anticubital Right Blood Culture - Preliminary ESBL Escherichia coli 05/26/23 05:25 Mucosa - Nasopharyngeal Respiratory Panel (PCR) - Final Rhythm Strip Rhythm Strip: Sinus Rhythm Rate: 100 Ectopy: None Physical Exam Narrative Seen and examined. No fever since admission. Patient complain of mild abdominal pain felt like gas/dyspeptic symptoms. She was also mild tachycardic last night but currently heart rate in normal range. Urine and blood culture positive of gram-negative flora ESBL E. coli. History of recurrent UTI in the past. Discussed with the daughter in the room. Physical exam General: Alert, Oriented x3, Cooperative HEENT: Atraumatic, PERRLA, EOMI, Normocephalic Oral: No Gingival or Mucosal Lesions/ Ulcerations Neck: Supple, No JVD, Negative Carotid Bruits Chest wall/Lungs: Air entry diminished in bilateral lung bases. No crepitation/rhonchi on 2 to 3 L of oxygen Cardiovascular: Regular rate, Regular Rhythm, Normal S1, Normal S2, No M/G/R Abdomen: Large abdominal panniculus. Bowel Sounds Present, Soft, Non Tender, Non-Distended : No dysuria. No renal angle tenderness. Extremities: Edema of lower extremity but muscles are less in bulk/mild to moderate atrophy. Skin: Dry chronic wound under large abdominal pannus. No active discharge Musculoskeletal: No Tenderness to Palpation of Joints or Extremities. ROM restricted Neurological: Cranial nerves II-XII grossly intact, DTR 2+/4. No acute focal neurological deficit. Psych/Mental Status: Flat affect. Assessment & Plan Assessment/Plan (1) UTI (urinary tract infection): PLAN: Plan The patient is a 77 y/o F was admitted on 05/26/23 with the strong smelling urine over the last 2 days with left flank discomfort and fever up to 100.9 Fahrenheit with history of recurrent UTI in the past. She also chronic cough and dyspnea on exertion. #1. Adult FTT, unable to do ADL, multifactorial, secondary to Acute Complicated Urinary Tract Infection w/ ESBL E. Coli with MDRO complicated by co-morbidities as noted: Patient admitted to MedSur floor. On IV meropenem based on the previous culture of ESBL. Blood cultures x 2 urine culture pending. 05/26: Blood cultures x 2 shows gram-negative rods in aerobic and anaerobic bottles. Urine culture gram-negative flora [id number] colonies. Currently on broad-spectrum antibiotic IV meropenem. Consult ID requested. Patient has leukocytosis. 05/27: Urine culture preliminary shows E. coli ESBL [id number], and a stent to ampicillin, ceftriaxone and fluoroquinolones and Bactrim. Blood cultures similar ESBL E. coli. Discussed with the ID. Kidneys and bladder ultrasound is ordered. #2. COPD with chronic hypoxic respiratory failure (2 L NC reported, potentially nightly, BiPAP history noted also in chart): Will maintain on oxygen with wean as tolerated to home oxygen supplementation, continue ATC duonebs, PRN albuterol, HOB, IS parameters, BiPAP nightly if amenable. 05/26: No acute issues. #3. Chronic Kidney Disease Stage IV suspected although GFR variable from 15-30 mill per minute : Admission BUN/Cr 26/1.96, GFR 26, baseline renal function 1.4-1.9 primarily from recent trending, repeat./Creatinine 27/1.85. #4. Diabetes mellitus type II with chronic neuropathy: Hold oral home regimen, continue home insulin regimen, ADA diet, accu checks w/ ISS. #5. PAF: continue patient home metoprolol, amiodarone, currently from list does not appear to be anticoagulated 05/27: Patient on metoprolol and amiodarone. Heart rate is controlled. Patient's daughter said sometimes her heart rate gets low, bradycardic. #6. Chronic abdominal wound with persistent intertrigo: Following at the wound care center, most recent visit 05/08/2023, in the midline under the pannus, continue Aquacel Ag to the wound bed 05/26: Discussed with the wound not Bee. Wound photos reviewed. A small dry ulcer. Wound dressing as per recommendation. #7. Hypertension: Continue home regimen including Lasix, metoprolol, PRN hydralazine. #8. Hyperlipidemia: We will continue patient on statin therapy. #9. Morbid Obesity: Weight loss and lifestyle changes encouraged. #10. Anxiety and depression: We will continue patient home fluoxetine regimen. #11. History of VTE: No DVT, bilateral PE history, unclear exact timeline, not currently chronically anticoagulated. #12. GERD: continue patient on PPI. #13. ROBBI: BIPAP q HS. #14. DVT prophylaxis: Lovenox. #15. CODE status: Patient RUDDY is her daughter Neema who is present and living will is currently in place. Discussed CODE status at length including difference between FULL code, DNR-CCA and DNR-CC status. Following discussions about the differences in these status, requested Full Code status. Charges/Coding Visit Charges Inpatient E&M: 65113 Subs Hosp L2
[2023-05-28] MEDS: Albuterol 2.5 MG/3 ML VIAL.NEB. INHALATION ×2 (13:44→19:42)
--- NOTE | 2023-05-28 13:56 | CON.PCM.ID_ITS ---
Assessment & Plan Assessment/Plan (1) Bacteremia due to Escherichia coli: PLAN: ESBL ecoli bacteremia from recurrent uti - cont nguyễn. Will check ultrasound, reports h/o kidney stones. Plan at discharge would be IM daily ertapenem. Will follow, thank you HPI Consult Data Date of Consult: 05/28/23 HPI Narrative Reason for Consultation: bacteremia HPI Narrative: CLAIRE PIRES, is a 77 F who presented with several days fever, weakness, lower abd and L flank pain, dysuria, nausea, not feeling well. Has frequent uti. Pain was mild/moderate. No recent abx. Came to ED, now on meropenem, feeling better. Full ROS performed and neg except as noted above. [facility] Medical History Abdominal pannus Anxiety and depression Bilateral pulmonary embolism (07/2014) Chronic anemia Chronic obstructive pulmonary disease with hypoxia CKD (chronic kidney disease), stage IV Essential hypertension GERD (gastroesophageal reflux disease) History of venous thromboembolism Morbid obesity Multiple thyroid nodules Open abdominal wall wound ROBBI treated with BiPAP Osteomyelitis of cervical spine Postoperative atrial fibrillation (06/2014) Type 2 diabetes mellitus Home Medications ergocalciferol (vitamin D2) 1,250 mcg (50,000 unit) capsule 50,000 unit PO MAZA SUPPLEMENT 02/25/20 [History Last Taken 04/15/23] fluoxetine 20 mg capsule 20 mg PO DAILY DEPRESSION 02/25/20 [History Last Taken 02/25/20] rosuvastatin 5 mg tablet (Crestor) 5 mg PO QHS cholesterol 01/16/21 [History Last Taken Unknown] pantoprazole 40 mg tablet,delayed release 40 mg PO DAILY reflux 03/12/21 [History Last Taken Unknown] metoprolol tartrate 25 mg tablet 25 mg PO QHS blood pressure 02/17/23 [History Last Taken 04/15/23] amiodarone 200 mg tablet 200 mg PO DAILY heart rate #0 tabs 02/26/23 [Rx Last Taken 04/15/23] albuterol sulfate 90 mcg/actuation breath activated powder inhaler 2 inh inhalation .000 PRN shortness of breath 03/27/23 [History Last Taken 04/16/23 08:22] ammonium lactate 12 % lotion (Skin Treatment) 1 applic topical DAILY PRN dry skin 03/27/23 [History Last Taken Unknown] aspirin 81 mg tablet,delayed release (Ecotrin Low Strength) 81 mg PO DAILY heart health 03/27/23 [History Last Taken 04/15/23] furosemide 40 mg tablet 40 mg PO DAILY diuretic 03/27/23 [History Last Taken 04/15/23] mometasone-formoterol HFA 100 mcg-5 mcg/actuation aerosol inhaler (Dulera) 2 inh inhalation BID breathing 03/27/23 [History Last Taken Unknown] vitamin B complex and vitamin C no.20-folic acid 1 mg capsule (Renal Caps) 1 cap PO DAILY vitamin 03/27/23 [History Last Taken Unknown] Allergy/AdvReac Type Severity Reaction Status Date / Time Food Allergies: Uncoded Allergy Swelling Verified 03/27/23 13:58 ibuprofen Allergy Shortness Verified 03/27/23 13:58 of breath oxycodone HCl [From Percocet] Allergy dizziness Verified 03/27/23 13:58 procaine [From Novocain] Allergy Other Verified 03/27/23 13:58 ciprofloxacin HCl AdvReac Other Verified 03/26/21 12:41 [From Cipro] Family History (Updated 05/26/23 @ 03:[address] Irais Sahni MD) Father Diabetes Mother CAD (coronary artery disease) Heart disease Hypertension Myocardial infarction Surgical History History of History of cholecystectomy History of spinal fusion Social History (Updated 05/26/23 @ 03:[address] Irais Sahni MD) household members: family Smoking Status: Never smoker alcohol intake: never substance use type: does not use Physical Exam Const alert, oriented x3 and no apparent distress General Appearance: cooperative HEENT normocephalic and head/scalp atraumatic Eyes PERRL and EOMs intact bilaterally Neck supple and No nodes Resp normal air movement and clear to auscultation bilaterally Cardio regular rate and regular rhythm GI soft to palpation, non-tender and non-distended Extremity General Extremity: edema Skin no rashes or lesions noted Neuro CN's II-XII intact bilaterally Lab / Micro Data Attestation: I reviewed the patient's lab results. 05/28/23 06:35 05/28/23 06:35 Labs: Laboratory Results - last 24 hr 05/28/23 06:35: WBC 8.6, RBC 3.71 L, Hgb 11.0 L, Hct 35.1 L, MCV 94.6, MCH 29.6, MCHC 31.3 L, RDW Std Deviation 45.6 H, RDW Coeff of Ruben 13.2, Plt Count 100 L, M PV 12.1 H, Immature Gran % (Auto) 0.700, Neut % (Auto) 72.7 H, Lymph % (Auto) 9.2 L, [place] % (Auto) 13.4 H, Eos % (Auto) 3.3, Baso % (Auto) 0.7, Absolute Neuts (auto) 6.3, Absolute Lymphs (auto) 0.79 L, Nucleated RBC % 0, Sodium 141, Potassium 3.6, Chloride 108 H, Carbon Dioxide 30.0, Anion Gap 3 L, BUN 26 H, Creatinine 1.80 H, Estim Creat Clear Calc 40.41, Est GFR (MDRD) Af Amer 35 L, Est GFR (MDRD) Non-Af 29 L, BUN/Creatinine Ratio 14.4, Glucose 109 H, Calcium 9.2 Micro: Microbiology 05/26/23 01:38 Urine, Random Urine Culture - Preliminary Escherichia coli 05/26/23 01:14 Blood Culture (Wb) - Anticubital Right Blood Culture - Final GNR lactose marketing development specialist 05/26/23 00:35 Blood Culture (Wb) - Anticubital Right Blood Culture - Preliminary ESBL Escherichia coli Rhythm Strip Rhythm Strip: Sinus Rhythm Rate: 100 Ectopy: None
--- NOTE | 2023-05-28 13:59 | US_ITS ---
STUDY: RENAL ULTRASOUND - COMPLETE REASON FOR EXAM: Female, 77 years old. pyelonephritis TECHNIQUE: Ultrasound evaluation of the kidneys was performed with real-time and static vaughn-scale imaging. COMPARISON: None. FINDINGS: RIGHT KIDNEY: Normal location of the right kidney, which is normal in size. The right kidney measures 11.1 cm. There is diffuse thinning of the renal cortex. The renal cortex measures 0.9 cm. There is no right renal mass or cyst. Echogenic foci in the medullary portion the kidney may represent nonobstructing stones. There is no right hydronephrosis. DISTAL RIGHT URETER: There is non-visualization of the distal right ureter. There is no demonstrated right ureterovesical junction calculus. There is a visualized right ureteral jet. LEFT KIDNEY: Normal location of the left kidney, which is normal in size. The left kidney measures 14.3 cm. There is a normal cortex of the left kidney. The renal cortex measures 1.8 cm. There is no left renal mass or cyst. There are no left renal calculi. There is no left hydronephrosis. DISTAL LEFT URETER: There is non-visualization of the distal left ureter. There is no demonstrated left ureterovesical junction calculus. There is a visualized left ureteral jet. BLADDER: The distended urinary bladder has a volume of 53 ml. The empty urinary bladder has a volume of ml. There is a normal wall thickness of the distended urinary bladder. There is no demonstrated mass within the urinary bladder. There are no demonstrated bladder calculi. US/Kidney and Bladder IMPRESSION: Suspect multiple nonobstructing right renal stones. CT may be useful. Electronically Signed: Kermit Bejarano MD at 22:25 EDT ,
[2023-05-28] MEDS: Atorvastatin Calcium 10 MG Tablet PO (21:40)
[2023-05-28] MEDS: Metoprolol Tartrate 25 MG Tablet PO (21:40)
[2023-05-29] VITALS (12 sets, daily range): BP systolic 122–144; BP diastolic 50–76; PULSE 60–79; RESP 16–20; TEMP 36.5–36.8; O2SAT 92–97; BMI 53.9
[2023-05-29] MEDS: Acetaminophen 325 MG Tablet 650 MG PO ×3 (02:12→22:17)
[2023-05-29] MEDS: Albuterol 2.5 MG/3 ML VIAL.NEB. INHALATION (07:06)
[2023-05-29] MEDS: Budesonide Respules 0.5 MG/2 ML AMPUL.NEB. INHALATION ×2 (07:06→23:31)
[2023-05-29 08:04] LABS: Absolute Lymphocyte Count 0.83 X10^3/uL (0.83-4.51); Absolute Neutrophil Count 4.4 X10^3/uL (2.0-7.7); Basophil# 0.05 X10^3/uL; Basophil% 0.7 % (0-1); Eosinophil# 0.28 X10^3/uL; Eosinophils% 4.1 % (0-5); Hematocrit 34.7 % (37-47); Hemoglobin 10.6 g/dL (12.0-15.0); Lymphocyte # 0.83 X10^3/ul (0.83-4.51); Lymphocyte % 12.3 % (19-41); Mean Corp Hgb Conc 30.5 g/dL (32-36); Mean Corpuscular Hgb 29.4 pg (27.0-32.0); Mean Corpuscular Volume 96.1 fL (81-99); Mean Platelet Vol. 13.2 fl (6.2-12.0); Monocyte# 1.18 X10^3/uL; Monocyte% 17.5 % (0-10); NRBC Flagged by Analyzer 0 % (0-5); Neutrophil # 4.36 X10^3/uL (2.7-7.7); Neutrophil % 64.5 % (47-70); POSITIVE COUNT YES; Platelet Count 95 K/mm3 (150-450); RBC Distribution Width CV 13.1 % (11.6-14.6); RBC Distribution Width SD 46.5 fl (35.1-43.9); Red Blood Count 3.61 M/mm3 (4.2-5.4); White Blood Count 6.8 K/mm3 (4.4-11.0)
[2023-05-29 09:01] LABS: Anion Gap 3 (5-15); BUN 25 mg/dL (7-18); BUN/Creat Ratio 17.1 RATIO (10-20); Calcium,Total 9.5 mg/dL (8.5-10.1); Chloride 109 mmol/L (98-107); Creatinine, Serum 1.46 mg/dL (0.55-1.02); EST Glomerular Filtration Rate 37 mL/min (>60); Est Glom Filt Rate - Afr Amer 45 mL/min (>60); Estimated Creatinine Clearance 49.81 ml/min; Glucose 100 mg/dL (74-106); Potassium 3.6 mmol/L (3.5-5.1); Sodium Level 142 mmol/L (136-145)
[2023-05-29] MEDS: Senna/Docusate Sodium 1 Tablet 2 TABLET PO ×2 (09:03→21:56)
[2023-05-29] MEDS: Pantoprazole Sodium 40 MG Tablet PO (09:04)
[2023-05-29] MEDS: Amiodarone 200 MG Tablet PO (09:04)
[2023-05-29] MEDS: FLUoxetine 20 MG Capsule PO (09:04)
[2023-05-29] MEDS: Furosemide 40 MG Tablet PO (09:04)
[2023-05-29] MEDS: Aspirin E.C. 81 MG Tablet PO (09:05)
[2023-05-29] MEDS: Enoxaparin 40 MG/0.4 ML Syringe SC ×2 (09:05→21:52)
[2023-05-29] MEDS: Meropenem 1 GM in 0.9% Normal Saline (100mL MB+) 100 ML IV ×2 (09:08→21:54)
--- NOTE | 2023-05-29 09:38 | PCM.CONS.GEN ---
Assessment & Plan Assessment/Plan (1) UTI (urinary tract infection): QUALIFIERS: Hematuria presence: without hematuria (2) Bacteremia due to Escherichia coli: PLAN: Plan At this time there is no further recommendation that I can have beyond adding timed voiding, continuing aggressive bowel management, vitamin C 500 mg daily, d-mannose 2 g once daily, probiotics daily and consideration with infectious disease regarding prophylactic antibiotic management. With her not being able to lie flat, I cannot do any further imaging or procedures for her, including a pelvic examination or cystoscopy. Please let me know if there is any further specific concern that I can help with. HPI Consult Data Date of Consult: 05/29/23 HPI Narrative Reason for Consultation: urinary tract infection with possible right non-obstructing kidney stone HPI Narrative: CLAIRE PIRES, is a 77 F who is currently admitted for urinary tract infection with positive blood cultures which has been a recurrent issue for her. On ultrasound evaluation of her kidneys, there is a questionable right-sided calcification. There is no hydronephrosis. She does have a history of kidney stones in the past. She has never required surgical intervention but has passed multiple stones. She is a dysfunctional voider secondary to difficulty in getting to the toilet with her pulmonary status. She is only voiding about 4 times a day. This definitely increases her risk of infection as well as incontinence. She is using approximately 4 diapers a day. We discussed timed voiding every 2 hours during the day in order to prevent infections in the urine. We also discussed appropriate bowel function with aggressive management of any constipation and diarrhea. Unfortunately, she is unable to be in a supine position secondary to her back and her lung functioning. Because of this, I am not able to perform a cystoscopy or obtain more accurate imaging such as a CT scan for her questionable kidney stone. If she cannot lie flat, I also cannot take her to surgery even if she does have a right-sided kidney stone. Because of the this I am also not able to do a pelvic examination to see if she has prolapse, and even if she does, it will be difficult to manage something like a pessary. The best recommendations I have at this point are to perform timed voiding, aggressive management of the bowel function, adding some conservative sahf-zyn-ytcrodg supplements that might help such as probiotics, cranberry/D-mannose, vitamin C as she is able to tolerate. She will not be a good candidate for vaginal medications such as estrogen cream partially due to her body habitus. I would also recommend a discussion with infectious disease regarding long-term antibiotic prophylaxis. It will be difficult if she does develop resistance to further antibiotics. I defer that decision to Dr. Ma and the family. Her daughter is present for the conversation. They understand that she is in a difficult situation regarding the urine. [facility] Medical History Abdominal pannus Anxiety and depression Bilateral pulmonary embolism (07/2014) Chronic anemia Chronic obstructive pulmonary disease with hypoxia CKD (chronic kidney disease), stage IV Essential hypertension GERD (gastroesophageal reflux disease) History of venous thromboembolism Morbid obesity Multiple thyroid nodules Open abdominal wall wound ROBBI treated with BiPAP Osteomyelitis of cervical spine Postoperative atrial fibrillation (06/2014) Type 2 diabetes mellitus Home Medications ergocalciferol (vitamin D2) 1,250 mcg (50,000 unit) capsule 50,000 unit PO MAZA SUPPLEMENT 02/25/20 [History Last Taken 04/15/23] fluoxetine 20 mg capsule 20 mg PO DAILY DEPRESSION 02/25/20 [History Last Taken 02/25/20] rosuvastatin 5 mg tablet (Crestor) 5 mg PO QHS cholesterol 01/16/21 [History Last Taken Unknown] pantoprazole 40 mg tablet,delayed release 40 mg PO DAILY reflux 03/12/21 [History Last Taken Unknown] metoprolol tartrate 25 mg tablet 25 mg PO QHS blood pressure 02/17/23 [History Last Taken 04/15/23] amiodarone 200 mg tablet 200 mg PO DAILY heart rate #0 tabs 02/26/23 [Rx Last Taken 04/15/23] albuterol sulfate 90 mcg/actuation breath activated powder inhaler 2 inh inhalation .000 PRN shortness of breath 03/27/23 [History Last Taken 04/16/23 08:22] ammonium lactate 12 % lotion (Skin Treatment) 1 applic topical DAILY PRN dry skin 03/27/23 [History Last Taken Unknown] aspirin 81 mg tablet,delayed release (Ecotrin Low Strength) 81 mg PO DAILY heart health 03/27/23 [History Last Taken 04/15/23] furosemide 40 mg tablet 40 mg PO DAILY diuretic 03/27/23 [History Last Taken 04/15/23] mometasone-formoterol HFA 100 mcg-5 mcg/actuation aerosol inhaler (Dulera) 2 inh inhalation BID breathing 03/27/23 [History Last Taken Unknown] vitamin B complex and vitamin C no.20-folic acid 1 mg capsule (Renal Caps) 1 cap PO DAILY vitamin 03/27/23 [History Last Taken Unknown] ertapenem 1 gram solution for injection 1 g IM DAILY #7 ea 05/29/23 [Rx Last Taken Unknown] Allergy/AdvReac Type Severity Reaction Status Date / Time Food Allergies: Uncoded Allergy Swelling Verified 03/27/23 13:58 ibuprofen Allergy Shortness Verified 03/27/23 13:58 of breath oxycodone HCl [From Percocet] Allergy dizziness Verified 03/27/23 13:58 procaine [From Novocain] Allergy Other Verified 03/27/23 13:58 ciprofloxacin HCl AdvReac Other Verified 03/26/21 12:41 [From Cipro] Family History (Updated 05/26/23 @ 03:[address] Irais Sahni MD) Father Diabetes Mother CAD (coronary artery disease) Heart disease Hypertension Myocardial infarction Surgical History History of History of cholecystectomy History of spinal fusion Social History (Updated 05/26/23 @ 03:[address] Irais Sahni MD) household members: family Smoking Status: Never smoker alcohol intake: never substance use type: does not use ROS Constitutional Constitutional: Reports fatigue and weakness Eyes Eyes: Reports systems reviewed and no addt'l complaints, except as documented ENT HEENT: Reports systems reviewed and no addt'l complaints, except as documented Cardiovascular Cardiovascular: Reports dyspnea; Denies abdominal pain Respiratory/Chest Respiratory/Chest: Reports dyspnea Gastrointestinal Gastrointestinal: Reports heartburn; Denies abdominal pain Genitourinary Genitourinary: Reports urinary incontinence and other Details: Dysfunctional voiding, functional incontinence ; Denies difficulty urinating, dysuria, hematuria or urinary frequency Musculoskeletal Musculoskeletal: Reports back pain and other Details: Not more than her chronic back related pain, no CVA pain Integumentary Integumentary: Reports systems reviewed and no addt'l complaints, except as documented Neurologic Neurologic: Reports systems reviewed and no addt'l complaints, except as documented Psychiatric Psychiatric: Reports systems reviewed and no addt'l complaints, except as documented Endocrine Endocrinology: Reports systems reviewed and no addt'l complaints, except as documented Hematologic/Lymphatic Hematologic/Lymphatic: Reports systems reviewed and no addt'l complaints, except as documented Allergic/Immunologic Allergic/Immunologic: Reports systems reviewed and no addt'l complaints, except as documented Physical Exam Const alert and oriented x3 HEENT normocephalic, head/scalp atraumatic, hearing grossly normal bilaterally, external ears normal and external nose normal Eyes General Eye: normal appearance of both eyes Neck supple General: trachea midline Chest inspection of chest normal Chest: symmetrical chest wall rise Resp Resp Narrative: There is increased effort in breathing, short of breath at the end of her sentences. Effort and Inspection: symmetric chest movement Cardio regular rate GI soft to palpation, non-tender and non-distended GI Narrative: Obese. no CVA tenderness Bladder / Kidney Exam: No catheter in place Back/Spine no CVA tenderness Skin no rashes or lesions noted, no jaundice, no petechiae and no mottling Neuro oriented x3, CN's II-XII intact bilaterally and moves all extremities Psych mental status grossly normal, thought process normal and cooperative Lab / Micro Data 05/29/23 07:10 05/29/23 07:10 Labs: Laboratory Results - last 24 hr 05/29/23 07:10: WBC 6.8, RBC 3.61 L, Hgb 10.6 L, Hct 34.7 L, MCV 96.1, MCH 29.4, MCHC 30.5 L, RDW Std Deviation 46.5 H, RDW Coeff of Ruben 13.1, Plt Count 95 L, MPV 13.2 H, Immature Gran % (Auto) 0.900, Neut % (Auto) 64.5, Lymph % (Auto) 12.3 L, Coleman % (Auto) 17.5 H, Eos % (Auto) 4.1, Baso % (Auto) 0.7, Absolute Neuts (auto) 4.4, Absolute Lymphs (auto) 0.83, Nucleated RBC % 0, Sodium 142, Potassium 3.6, Chloride 109 H, Carbon Dioxide 30.0, Anion Gap 3 L, BUN 25 H, Creatinine 1.46 H, Estim Creat Clear Calc 49.81, Est GFR (MDRD) Af Amer 45 L, Est GFR (MDRD) Non-Af 37 L, BUN/Creatinine Ratio 17.1, Glucose 100, Calcium 9.5 Micro: Microbiology 05/26/23 01:38 Urine, Random Urine Culture - Final ESBL Escherichia coli 05/26/23 00:35 Blood Culture (Wb) - Anticubital Right Blood Culture - Final ESBL Escherichia coli 05/26/23 01:14 Blood Culture (Wb) - Anticubital Right Blood Culture - Final GNR lactose field service rep Rhythm Strip Rhythm Strip: Sinus Rhythm Rate: 100 Ectopy: None Imaging Radiology Impression Renal Ultrasound 05/28/23 13:59 IMPRESSION: Suspect multiple nonobstructing right renal stones. CT may be useful. Electronically Signed: Kermit Bejarano MD at 22:25 EDT ,
--- NOTE | 2023-05-29 10:13 | PCM.PN.ID ---
Physical Exam Narrative Feeling better, no fever, no abd pain Const alert and no apparent distress General Appearance: cooperative Resp normal air movement and clear to auscultation bilaterally Cardio regular rate and regular rhythm GI soft to palpation, non-tender and non-distended Skin no rashes or lesions noted ID ID: Route of nutrition/ use of supplements: [] Nutritional Intake: [] IV Site: [] Croft Catheter: [] Assessment & Plan Assessment/Plan (1) Bacteremia due to Escherichia coli: PLAN: ESBL ecoli bacteremia from recurrent uti - cont nguyễn. Multiple stones seen on ultrasound, may explain her recurrent infections. Recommend urology eval. Plan at discharge would be IM daily ertapenem, will need a dose prior to discharge. Will follow
--- NOTE | 2023-05-29 13:45 | CASEMGMT ---
STUART BRAVO updated by ID that patient will need daily IM Ertapenem injections for 1 week in the Outpatient infusion clinic. STUART CM in to discuss antibiotics at discharge. STUART BRAVO confirmed with patient and daughter plan is to attend outpatient infusion clinic. STUART BRAVO called and faxed order to the [facility] Outpatient Infusion Clinic with planned discharge for tomorrow. Nurse faxed evening and weekend instructions for patient. STUART BRAVO provided instructions to patient and daughter. Patient and daugther had no further questions or concerns. CM will continue to follow this patient and plan for a safe discharge.
--- NOTE | 2023-05-29 14:54 | NURSING ---
Report called to nurse Bethea for pt to be d/c at 1530 to [facility].
[2023-05-29] MEDS: Nystatin Ointment 1 APPLIC TOPICAL ×2 (15:00→21:55)
--- NOTE | 2023-05-29 15:01 | PN.HOSP_ITS ---
Reason for Visit Reason for Visit: Diagnoses Unspecified Escherichia coli [E. coli] as the cause of diseases classified else where (05/26/23) Urinary tract infection, site not specified (05/26/23) Bacteremia (05/26/23) Objective Data Objective Data Vital Signs: Vital Signs Temp Pulse Resp BP Pulse Ox O2 Del Method O2 Flow Rate 97.7 F L 77 18 135/76 H 94 Nasal Cannula 2 05/29/23 11:27 05/29/23 11:27 05/29/23 11:27 05/29/23 11:27 05/29/23 11:31 05/29/23 14:35 05/29/23 14:35 FiO2 94 05/27/23 18:00 Oxygen Flow Rate (L/min) 2 Oxygen Delivery Method Nasal Cannula Weight: 334 lb 7.06 oz Body Mass Index (BMI) 53.9 Intake & Output: Intake and Output for Last 24 Hours 05/27/23 05/28/23 05/29/23 23:59 23:59 23:59 Intake Total 1100 / 1100 480 / 1140 1140 / 1140 Output Total 950 / 950 1400 / 1950 750 / 750 Balance 150 / 150 -920 / -810 390 / 390 Lab / Micro Data 05/29/23 07:10 05/29/23 07:10 Labs: Laboratory Results - last 24 hr 05/29/23 07:10: WBC 6.8, RBC 3.61 L, Hgb 10.6 L, Hct 34.7 L, MCV 96.1, MCH 29.4, MCHC 30.5 L, RDW Std Deviation 46.5 H, RDW Coeff of Ruben 13.1, Plt Count 95 L, MPV 13.2 H, Immature Gran % (Auto) 0.900, Neut % (Auto) 64.5, Lymph % (Auto) 12.3 L, [place] % (Auto) 17.5 H, Eos % (Auto) 4.1, Baso % (Auto) 0.7, Absolute Neuts (auto) 4.4, Absolute Lymphs (auto) 0.83, Nucleated RBC % 0, Sodium 142, Potassium 3.6, Chloride 109 H, Carbon Dioxide 30.0, Anion Gap 3 L, BUN 25 H, Creatinine 1.46 H, Estim Creat Clear Calc 49.81, Est GFR (MDRD) Af Amer 45 L, Est GFR (MDRD) Non-Af 37 L, BUN/Creatinine Ratio 17.1, Glucose 100, Calcium 9.5 Micro: Microbiology 05/26/23 01:38 Urine, Random Urine Culture - Final ESBL Escherichia coli 05/26/23 00:35 Blood Culture (Wb) - Anticubital Right Blood Culture - Final ESBL Escherichia coli 05/26/23 01:14 Blood Culture (Wb) - Anticubital Right Blood Culture - Final GNR lactose log manager 05/26/23 05:25 Mucosa - Nasopharyngeal Respiratory Panel (PCR) - Final Radiography Diagnostic Testing: Radiology Impression Renal Ultrasound 05/28/23 13:59 IMPRESSION: Suspect multiple nonobstructing right renal stones. CT may be useful. Electronically Signed: Kermit Bejarano MD at 22:25 EDT , Rhythm Strip Rhythm Strip: Sinus Rhythm Rate: 100 Ectopy: None Physical Exam Narrative Seen and examined. No fever since admission. Patient is states her abdominal pain is improved and is not bothering her. Discussed with the ID and urologist consulted for nonobstructing right renal pain although not clearly stated in ultrasound. Urine and blood culture positive of gram-negative flora ESBL E. coli. History of recurrent UTI in the past. Discussed with the daughter in the room. Physical exam General: Alert, Oriented x3, Cooperative HEENT: Atraumatic, PERRLA, EOMI, Normocephalic Oral: No Gingival or Mucosal Lesions/ Ulcerations Neck: Supple, No JVD, Negative Carotid Bruits Chest wall/Lungs: Air entry diminished in bilateral lung bases. No crepitation/rhonchi on 2 to 3 L of oxygen Cardiovascular: Regular rate, Regular Rhythm, Normal S1, Normal S2, No M/G/R Abdomen: Large abdominal panniculus. Bowel Sounds Present, Soft, Non Tender, Non-Distended : No dysuria. No renal angle tenderness. Extremities: No significant edema. muscles are less in bulk/mild to moderate atrophy. Skin: Dry chronic wound under large abdominal pannus. No active discharge Musculoskeletal: No Tenderness to Palpation of Joints or Extremities. ROM restricted Neurological: Cranial nerves II-XII grossly intact, DTR 2+/4. No acute focal n eurological deficit. Psych/Mental Status: Flat affect. Assessment & Plan Assessment/Plan (1) UTI (urinary tract infection): QUALIFIERS: Hematuria presence: without hematuria PLAN: Plan The patient is a 77 y/o F was admitted on 05/26/23 with the strong smelling urine over the last 2 days with left flank discomfort and fever up to 100.9 Fahrenheit with history of recurrent UTI in the past. She also chronic cough and dyspnea on exertion. #1. Adult FTT, unable to do ADL, multifactorial, secondary to Acute Complicated Urinary Tract Infection w/ ESBL E. Coli with MDRO complicated by co-morbidities as noted: Patient admitted to MedSurg floor. On IV meropenem based on the previous culture of ESBL. Blood cultures x 2 urine culture pending. 05/26: Blood cultures x 2 shows gram-negative rods in aerobic and anaerobic bottles. Urine culture gram-negative flora [id number] colonies. Currently on broad-spectrum antibiotic IV meropenem. Consult ID requested. Patient has leukocytosis. 05/27: Urine culture preliminary shows E. coli ESBL [id number], and a stent to ampicillin, ceftriaxone and fluoroquinolones and Bactrim. Blood cultures similar ESBL E. coli. Discussed with the ID. Kidneys and bladder ultrasound is ordered. 05/28: Blood culture and urine culture shows ESBL E. coli. ID recommended neur ologist consult. Discussed with the urologist consulted appreciated. Recommended timed voiding, aggressive bowel management, vitamin C 500 mg daily, d-mannose 2 g daily, probiotics daily and ID opinion regarding prophylactic antibiotic. Patient has chronic back pain and cannot lay flat for CT abdomen or pelvic exam or cystoscopy.Most likely anticipate discharge on ertapenem 1 g IM daily. #2. COPD with chronic hypoxic respiratory failure (2 L NC reported, potentia lly nightly, BiPAP history noted also in chart): Will maintain on oxygen with wean as tolerated to home oxygen supplementation, continue ATC duonebs, PRN albuterol, HOB, IS parameters, BiPAP nightly if amenable. 05/26: No acute issues. #3. Chronic Kidney Disease Stage IV suspected although GFR variable from 15-30 mill per minute : Admission BUN/Cr 26/1.96, GFR 26, baseline renal function 1.4- 1.9 primarily from recent trending, repeat./Creatinine 15/03.85. #4. Diabetes mellitus type II with chronic neuropathy: Hold oral home regimen, continue home insulin regimen, ADA diet, accu checks w/ ISS. #5. PAF: continue patient home metoprolol, amiodarone, currently from list does not appear to be anticoagulated 05/27: Patient on metoprolol and amiodarone. Heart rate is controlled. Patient's daughter said sometimes her heart rate gets low, bradycardic. 05/28: Heart rate and blood pressure are controlled. #6. Chronic abdominal wound with persistent intertrigo: Following at the wound care center, most recent visit 05/08/2023, in the midline under the pannus, continue Aquacel Ag to the wound bed 05/26: Discussed with the wound not Bee. Wound photos reviewed. A small dry ulcer. Wound dressing as per recommendation. #7. Hypertension: Continue home regimen including Lasix, metoprolol, PRN hydralazine. #8. Hyperlipidemia: We will continue patient on statin therapy. #9. Morbid Obesity: Weight loss and lifestyle changes encouraged. #10. Anxiety and depression: We will continue patient home fluoxetine regimen. #11. History of VTE: No DVT, bilateral PE history, unclear exact timeline, not currently chronically anticoagulated. #12. GERD: continue patient on PPI. #13. ROBBI: BIPAP q HS. #14. DVT prophylaxis: Lovenox. #15. CODE status: Patient RUDDY is her daughter Neema who is present and living will is currently in place. Discussed CODE status at length including difference between FULL code, DNR-CCA and DNR-CC status. Following discussions about the differences in these status, requested Full Code status. Charges/Coding Visit Charges Inpatient E&M: 99179 Subs Hosp L2
[2023-05-29] MEDS: Ipratropium/Albuterol Sulfate 3 ML AMPUL.NEB INHALATION ×2 (16:28→23:31)
[2023-05-29] MEDS: Ascorbic Acid 500 MG Tablet PO (17:29)
[2023-05-29] MEDS: Atorvastatin Calcium 10 MG Tablet PO (21:52)
[2023-05-29] MEDS: Metoprolol Tartrate 25 MG Tablet PO (21:54)
[2023-05-30 05:09] VITALS: BMI 52.7
[2023-05-30] MEDS: Nystatin Ointment 1 APPLIC TOPICAL (05:45)
[2023-05-30] MEDS: Acetaminophen 325 MG Tablet 650 MG PO (06:49)
[2023-05-30 07:03] VITALS: PULSE 62; RESP 20; O2SAT 96
[2023-05-30] MEDS: Albuterol 2.5 MG/3 ML VIAL.NEB. INHALATION ×2 (07:03→13:05)
[2023-05-30] MEDS: Budesonide Respules 0.5 MG/2 ML AMPUL.NEB. INHALATION (07:03)
[2023-05-30 08:00] VITALS: BP 126/65; PULSE 64; RESP 16; TEMP 36.7; O2SAT 95
--- NOTE | 2023-05-30 09:26 | DCINST_ITS ---
Discharge Instructions Follow Up Care Test Results: Test results from this visit will be discussed in further detail at your follow- up appointment, if applicable. Discharge Plan Admission Admit Date/Time: 05/26/23 02:37 Attending Provider: Josef Seo Primary Care Provider: Sandrine Mireles Consulting Providers: Irais Sahni; Hari Ma; Landy Hardy Discharge Orders/Prescriptions Prescriptions: New ertapenem 1 gram recon soln 1 g IM DAILY Qty: 7 0RF Rx Instructions: 1 gm IM ertapenem daily. Reconstitute with lidocaine. dx: ESBL infection weekly bmp, cbc, and LFT. Fax to [phone]. No Action pantoprazole 40 mg tablet,delayed release (DR/EC) 40 mg PO DAILY ergocalciferol (vitamin D2) 50,000 UNIT capsule 50,000 unit PO MAZA Patient Comments: take 1 capsule by mouth every week fluoxetine 20 MG capsule 20 mg PO DAILY Patient Comments: depression rosuvastatin [Crestor] 5 mg Tablet 5 mg PO QHS furosemide 40 mg tablet 40 mg PO DAILY aspirin [Ecotrin Low Strength] 81 mg tablet,delayed release (DR/EC) 81 mg PO DAILY Dulera 100-5 mcg/actuation HFA aerosol inhaler 2 inh inhalation BID Renal Caps 1 mg capsule 1 cap PO DAILY albuterol sulfate 90 mcg/actuation aerosol powdr breath activated 2 inh inhalation .000 PRN (Reason: shortness of breath) ammonium lactate [Skin Treatment] 12 % lotion 1 applic topical DAILY PRN (Reason: dry skin) Patient Comments: APPLIES TO LEGS metoprolol tartrate 25 mg tablet 25 mg PO QHS amiodarone 200 mg Tablet 200 mg PO DAILY Qty: 0 0RF Referrals / Follow Up: Sandrine Mireles MD [Primary Care Provider] - Landy Hardy MD [Med Staff - Active Staff] - Within 1 Month Hari Ma MD [Med Staff - Active Staff] - Within 1 Month ( For recurrent ESBL E. coli UTI) Disposition Disposition (needs filled in before D/C Order can be placed): Home, Self Care
--- NOTE | 2023-05-30 09:26 | PCM.DC ---
Discharge Instructions Diet Discharge Diet: 1800 Calorie Control Diet and 2000 mg Sodium Diet Activity Discharge Activity: Return to Normal Activity Weight Bearing Status: Weight bearing as tolerated Dressing / Incision Call your doctor if you observe: Fever of 101 or Higher, Coldness, Increased Pain, Numbness or Tingling, Change in Color, Inability to urinate, Inability to have a bowel movement, Using more than 1 pad per hour, Shortness of breath, Dizziness, Fainting spells, Swelling in the ankles, Chest pain, Prolonged hiccupping, Increased palpitations (irregular heartbeat) and Calf discomfort Follow Up Care When: IN 2 WEEKS Test Results: Test results from this visit will be discussed in further detail at your follow-up appointment, if applicable. Discharge Plan Admission Admit Date/Time: 05/26/23 02:37 Primary Reason for Your Visit: ESBL E. coli UTI complicated with bacteremia Attending Provider: Josef Seo Primary Care Provider: Sandrine Mireles Consulting Providers: Irais Sahni; Hari Ma; Landy Hardy Instructions Additional Instructions / Restrictions: Patient to attend outpatient infusion injections daily, see attached instructions from [facility] Outpatient Infusion Clinic for evening and weekends. Discharge Orders/Prescriptions Prescriptions: New ertapenem 1 gram recon soln 1 g IM DAILY Qty: 7 0RF Rx Instructions: 1 gm IM ertapenem daily. Reconstitute with lidocaine. dx: ESBL infection weekly bmp, cbc, and LFT. Fax to [phone]. L.acidoph,saliva-B.bif-S.therm 175 mg Capsule 1 cap PO BID Qty: 0 0RF Rx Instructions: At least till the patient finishes the antibiotic. Available OTC sennosides-docusate sodium [Stool Softener-Stimulant Laxat] 8.6-50 mg Tablet 2 tab PO BID Qty: 0 0RF Rx Instructions: Available dyxs-pia-iloziqb. ascorbic acid (vitamin C) 500 mg Tablet 500 mg PO BREAKFAST 30 Days Qty: 30 3RF d-mannose 500 mg capsule 2,000 mg PO DAILY 30 Days Qty: 120 0RF Continued pantoprazole 40 mg tablet,delayed release (DR/EC) 40 mg PO DAILY ergocalciferol (vitamin D2) 50,000 UNIT capsule 50,000 unit PO MAZA Patient Comments: take 1 capsule by mouth every week fluoxetine 20 MG capsule 20 mg PO DAILY Patient Comments: depression rosuvastatin [Crestor] 5 mg Tablet 5 mg PO QHS furosemide 40 mg tablet 40 mg PO DAILY aspirin [Ecotrin Low Strength] 81 mg tablet,delayed release (DR/EC) 81 mg PO DAILY Dulera 100-5 mcg/actuation HFA aerosol inhaler 2 inh inhalation BID Renal Caps 1 mg capsule 1 cap PO DAILY albuterol sulfate 90 mcg/actuation aerosol powdr breath activated 2 inh inhalation .000 PRN (Reason: shortness of breath) ammonium lactate [Skin Treatment] 12 % lotion 1 applic topical DAILY PRN (Reason: dry skin) Patient Comments: APPLIES TO LEGS metoprolol tartrate 25 mg tablet 25 mg PO QHS amiodarone 200 mg Tablet 200 mg PO DAILY Qty: 0 0RF Referrals / Follow Up: Sandrine Mireles MD [Primary Care Provider] - 06/02/23 4:30 pm Landy Hardy MD [Med Staff - Active Staff] - 06/23/23 11:00 am Hari Ma MD [Med Staff - Active Staff] - Within 1 Month ( Please call the office to schedule an appt for recurrent ESBL E. coli UTI) Disposition Disposition (needs filled in before D/C Order can be placed): Home, Self Care
--- NOTE | 2023-05-30 09:27 | PCM.DC.SUM ---
Providers Date of Admission: 05/26/23 Date of Discharge: 05/30/23 Primary Care Physician: Dr. Sandrine Mireles MD Consultations 05/26/23 04:08 Consult: Onc/Wound/it compliance analyst Routine Comment: Reason for Consult:: pannus wound 05/27/23 14:19 Consult: Infectious Disease Routine Consulting Provider: Hari Ma Reason for Consult: GNR bacteremia in blood and urine culture EMERGENT Consult: No MD Notified: Yes Date Notified: 05/27/23 Time Notified: 14:19 Method of Notification: Text 05/29/23 08:35 Consult: Urology Routine Consulting Provider: Landy Hardy Reason for Consult: right renal stone? recurrent ESBL UTI EMERGENT Consult: No Notified: Yes Date Notified: 05/29/23 Time Notified: 08:35 Method of Notification: Text Reason For Visit: UTI, ADULT FTT Diagnosis Discharge Diagnosis (1) UTI (urinary tract infection): Status: Acute Code(s): N39.0 - Urinary tract infection, site not specified Qualifiers: Hematuria presence: without hematuria Plan The patient is a 77 y/o F was admitted on 05/26/23 with the strong smelling urine over the last 2 days with left flank discomfort and fever up to 100.9 Fahrenheit with history of recurrent UTI in the past. She also chronic cough and dyspnea on exertion. #1. Adult FTT, unable to do ADL, multifactorial, secondary to Acute Complicated Urinary Tract Infection w/ ESBL E. Coli with MDRO complicated by co-morbidities as noted: Patient admitted to [facility] floor. On IV meropenem based on the previous culture of ESBL. Blood cultures x 2 urine culture pending. 05/26: Blood cultures x 2 shows gram-negative rods in aerobic and anaerobic bottles. Urine culture gram-negative flora [id number] colonies. Currently on broad-spectrum antibiotic IV meropenem. Consult ID requested. Patient has leukocytosis. 05/27: Urine culture preliminary shows E. coli ESBL [id number], and a stent to ampicillin, ceftriaxone and fluoroquinolones and Bactrim. Blood cultures similar ESBL E. coli. Discussed with the ID. Kidneys and bladder ultrasound is ordered. 05/28: Blood culture and urine culture shows ESBL E. coli. ID recommended neurologist consult. Discussed with the urologist consulted appreciated. Recommended timed voiding, aggressive bowel management, vitamin C 500 mg daily, d-mannose 2 g daily, probiotics daily and ID opinion regarding prophylactic antibiotic. Patient has chronic back pain and cannot lay flat for CT abdomen or pelvic exam or cystoscopy.Most likely anticipate discharge on ertapenem 1 g IM daily. 05/29: Ertapenem 1 g IV dose ordered in the morning in place of meropenem. Patient is discharged on ertapenem 1 g daily total of 7 doses to be given IM in the infusion center. Follow-up infectious disease clinic to evaluate for further prophylactic antibiotic. Patient is discharged on vitamin C, lactobacillus and d-mannose 2 g daily. #2. COPD with chronic hypoxic respiratory failure (2 L NC reported, potentially nightly, BiPAP history noted also in chart): Will maintain on oxygen with wean as tolerated to home oxygen supplementation, continue ATC duonebs, PRN albuterol, HOB, IS parameters, BiPAP nightly if amenable. 05/26: No acute issues. 05/29: I have reviewed the oxygen testing, and this patient qualifies for the home equipment and portability. The patient is mobile in the home and the community. She requires 3 L at rest and 5 L with ambulation. #3. Chronic Kidney Disease Stage IV suspected although GFR variable from 15-30 mill per minute : Admission BUN/Cr 26/1.96, GFR 26, baseline renal function 1.4-1.9 primarily from recent trending, repeat./Creatinine 27/1.85. 05/29: BUNs/creatinine improved to 25/1.46. She was admitted revealed/creatinine 26/1.96. She does not meet criteria for ROSELYN as there is no decrease of creatinine of 0.7 mg per #4. Diabetes mellitus type II with chronic neuropathy: Hold oral home regimen, continue home insulin regimen, ADA diet, accu checks w/ ISS. #5. PAF: continue patient home metoprolol, amiodarone, currently from list does not appear to be anticoagulated 05/27: Patient on metoprolol and amiodarone. Heart rate is controlled. Patient's daughter said sometimes her heart rate gets low, bradycardic. 05/28: Heart rate and blood pressure are controlled. 05/29: Heart rate and blood pressure are controlled. Sinus rhythm. #6. Chronic abdominal wound with persistent intertrigo: Following at the wound care center, most recent visit 05/08/2023, in the midline under the pannus, continue Aquacel Ag to the wound bed 05/26: Discussed with the wound not Bee. Wound photos reviewed. A small dry ulcer. Wound dressing as per recommendation. #7. Hypertension: Continue home regimen including Lasix, metoprolol, PRN hydralazine. #8. Hyperlipidemia: We will continue patient on statin therapy. #9. Morbid Obesity: Weight loss and lifestyle changes encouraged. #10. Anxiety and depression: We will continue patient home fluoxetine regimen. #11. History of VTE: No DVT, bilateral PE history, unclear exact timeline, not currently chronically anticoagulated. #12. GERD: continue patient on PPI. #13. ROBBI: BIPAP q HS. #14. DVT prophylaxis: Lovenox. #15. CODE status: Patient RUDDY is her daughter Neema who is present and living will is currently in place. Discussed CODE status at length including difference between FULL code, DNR-CCA and DNR-CC status. Following discussions about the differences in these status, requested Full Code status. Discharge medication reconciliation done. Discharge follow-up instructions completed. Discharge process discussed with the patient and all questions were answered to patient's satisfaction. Follow with PCP in 1 to 2 weeks Total time spent, exact 35 minutes on discharge meds reconciliation, examination, coordination of care with nurses and ancillary staff, review of imaging and blood test and discussion with the patient on follow-up instructions. Medications at Discharge Home Medications ergocalciferol (vitamin D2) 1,250 mcg (50,000 unit) capsule 50,000 unit PO MAZA SUPPLEMENT 02/25/20 fluoxetine 20 mg capsule 20 mg PO DAILY DEPRESSION 02/25/20 rosuvastatin 5 mg tablet (Crestor) 5 mg PO QHS cholesterol 01/16/21 pantoprazole 40 mg tablet,delayed release 40 mg PO DAILY reflux 03/12/21 metoprolol tartrate 25 mg tablet 25 mg PO QHS blood pressure 02/17/23 amiodarone 200 mg tablet 200 mg PO DAILY heart rate #0 tabs 02/26/23 albuterol sulfate 90 mcg/actuation breath activated powder inhaler 2 inh inhalation .000 PRN shortness of breath 03/27/23 ammonium lactate 12 % lotion (Skin Treatment) 1 applic topical DAILY PRN dry skin 03/27/23 aspirin 81 mg tablet,delayed release (Ecotrin Low Strength) 81 mg PO DAILY heart health 03/27/23 furosemide 40 mg tablet 40 mg PO DAILY diuretic 03/27/23 mometasone-formoterol HFA 100 mcg-5 mcg/actuation aerosol inhaler (Dulera) 2 inh inhalation BID breathing 03/27/23 vitamin B complex and vitamin C no.20-folic acid 1 mg capsule (Renal Caps) 1 cap PO DAILY vitamin 03/27/23 ertapenem 1 gram solution for injection 1 g IM DAILY #7 ea 05/29/23 L.acidophil,salivari-Bifido bifidum-Strep thermoph 175 mg capsule 1 cap PO BID #0 caps 05/30/23 ascorbic acid (vitamin C) 500 mg tablet 500 mg PO BREAKFAST 30 days #30 tabs 05/30/23 d-mannose 500 mg capsule 2,000 mg (4 x 500 mg) PO DAILY 1 month #120 caps 05/30/23 sennosides 8.6 mg-docusate sodium 50 mg tablet (Stool Softener-Stimulant Laxative) 2 tab PO BID #0 tabs 05/30/23 Physical Exam Narrative Seen and examined. No fever since admission. She removed her bowel. She complained that she complained small tiny amount of blood clot. She is on oxygen dry ear and DVT prophylaxis dose enoxaparin 40 mill subcu daily. Abdominal pain has improved. Discussed with the daughter over the phone. Physical exam General: Alert, Oriented x3, Cooperative HEENT: Atraumatic, PERRLA, EOMI, Normocephalic Oral: No Gingival or Mucosal Lesions/ Ulcerations Neck: Supple, No JVD, Negative Carotid Bruits Chest wall/Lungs: Air entry diminished in bilateral lung bases. No crepitation/rhonchi on 3 L of oxygen Cardiovascular: Regular rate, Regular Rhythm, Normal S1, Normal S2, No M/G/R Abdomen: Large abdominal panniculus. Bowel Sounds Present, Soft, Non Tender, Non-Distended : No dysuria. No renal angle tenderness. Extremities: No significant edema. muscles are less in bulk/mild to moderate atrophy. Skin: Dry chronic wound under large abdominal pannus. No active discharge Musculoskeletal: No Tenderness to Palpation of Joints or Extremities. ROM restricted Neurological: Cranial nerves II-XII grossly intact, DTR 2+/4. No acute focal neurological deficit. Psych/Mental Status: Flat affect. Weight / BMI Weight Weight: 326 lb 8.073 oz Body Mass Index (BMI) 52.7 ABG / Lab / Microbiology Data 05/29/23 07:10 05/29/23 07:10 Microbiology: Microbiology 05/26/23 01:38 Urine, Random Urine Culture - Final ESBL Escherichia coli 05/26/23 00:35 Blood Culture (Wb) - Anticubital Right Blood Culture - Final ESBL Escherichia coli 05/26/23 01:14 Blood Culture (Wb) - Anticubital Right Blood Culture - Final GNR lactose front desk coordinator 05/26/23 05:25 Mucosa - Nasopharyngeal Respiratory Panel (PCR) - Final Meaningful Use Info Meaningful Use Diagnoses (Choose all that apply): None applicable Discharge Plan Admission Admit Date/Time: 05/26/23 02:37 Primary Reason for Your Visit: ESBL E. coli UTI complicated with bacteremia Attending Provider: Josef Seo Primary Care Provider: Sandrine Mireles Consulting Providers: Irais Sahni; Hari Ma; Landy Hardy Instructions Additional Instructions / Restrictions: Patient to attend outpatient infusion injections daily, see attached instructions from [facility] for evening and weekends. Discharge Orders/Prescriptions Prescriptions: New ertapenem 1 gram recon soln 1 g IM DAILY Qty: 7 0RF Rx Instructions: 1 gm IM ertapenem daily. Reconstitute with lidocaine. dx: ESBL infection weekly bmp, cbc, and LFT. Fax to [phone]. L.acidoph,saliva-B.bif-S.therm 175 mg Capsule 1 cap PO BID Qty: 0 0RF Rx Instructions: At least till the patient finishes the antibiotic. Available OTC sennosides-docusate sodium [Stool Softener-Stimulant Laxat] 8.6-50 mg Tablet 2 tab PO BID Qty: 0 0RF Rx Instructions: Available [id number]. ascorbic acid (vitamin C) 500 mg Tablet 500 mg PO BREAKFAST 30 Days Qty: 30 3RF d-mannose 500 mg capsule 2,000 mg PO DAILY 30 Days Qty: 120 0RF Continued pantoprazole 40 mg tablet,delayed release (DR/EC) 40 mg PO DAILY ergocalciferol (vitamin D2) 50,000 UNIT capsule 50,000 unit PO MAZA Patient Comments: take 1 capsule by mouth every week fluoxetine 20 MG capsule 20 mg PO DAILY Patient Comments: depression rosuvastatin [Crestor] 5 mg Tablet 5 mg PO QHS furosemide 40 mg tablet 40 mg PO DAILY aspirin [Ecotrin Low Strength] 81 mg tablet,delayed release (DR/EC) 81 mg PO DAILY Dulera 100-5 mcg/actuation HFA aerosol inhaler 2 inh inhalation BID Renal Caps 1 mg capsule 1 cap PO DAILY albuterol sulfate 90 mcg/actuation aerosol powdr breath activated 2 inh inhalation .000 PRN (Reason: shortness of breath) ammonium lactate [Skin Treatment] 12 % lotion 1 applic topical DAILY PRN (Reason: dry skin) Patient Comments: APPLIES TO LEGS metoprolol tartrate 25 mg tablet 25 mg PO QHS amiodarone 200 mg Tablet 200 mg PO DAILY Qty: 0 0RF Referrals / Follow Up: Sandrine Mireles MD [Primary Care Provider] - 06/02/23 4:30 pm Landy Hardy MD [Med Staff - Active Staff] - 06/23/23 11:00 am Hari Ma MD [Med Staff - Active Staff] - Within 1 Month ( Please call the office to schedule an appt for recurrent ESBL E. coli UTI) Disposition Disposition (needs filled in before D/C Order can be placed): Home, Self Care Charges/Coding Visit Charges Inpatient E&M: 09375 Disch Hosp >30min
[2023-05-30] MEDS: Amiodarone 200 MG Tablet PO (09:47)
[2023-05-30] MEDS: Lactobacillis Acidophilus 1 CAP PO (09:47)
[2023-05-30] MEDS: Ascorbic Acid 500 MG Tablet PO (09:47)
[2023-05-30] MEDS: Senna/Docusate Sodium 1 Tablet 2 TABLET PO (09:48)
[2023-05-30] MEDS: Pantoprazole Sodium 40 MG Tablet PO (09:48)
[2023-05-30] MEDS: Aspirin E.C. 81 MG Tablet PO (09:48)
[2023-05-30] MEDS: FLUoxetine 20 MG Capsule PO (09:48)
[2023-05-30] MEDS: Enoxaparin 40 MG/0.4 ML Syringe SC (09:48)
[2023-05-30] MEDS: Furosemide 40 MG Tablet PO (09:48)
[2023-05-30] MEDS: Ertapenem Sod 1 GM in 0.9% Normal Saline (50mL MB+) 50 ML IV (09:56)
[2023-05-30 11:37] VITALS: O2SAT 78; O2SAT 87; O2SAT 88; O2SAT 90; O2SAT 95
--- NOTE | 2023-05-30 11:55 | CASEMGMT ---
Patient has order for discharge. Patient is requiring increase in home oxygen, script received. RN LAWRENCE in to discuss needs at discharge. Patient updated to report to central registration at 1000 tomorrow for outpatient infustion. Patient and daughter voiced understanding. RN CM inquired if patient had portable oxygen for at discharge. Daughter states patient's POC in not charged and inquired if [facility] can deliver tank. RN LAWRENCE called [facility] and they are able to deliver tank at 1300. RN CM updated patient and daughter. Patient and daughter had no further questions or concerns. RN CM updated discharge plan. Updated script sent to [facility].
[2023-05-30 13:05] VITALS: PULSE 68; RESP 20
== END 2023-05-30 13:59 | disposition home or self-care (01) | DRG 690 ==
LOC: ED 05-26 02:38 → PCU 05-26 02:51
PROVIDERS: Admitting Provider Family Medicine; Emergency Provider Emergency Medicine; PCP Internal Medicine; Visit Provider Internal Medicine
DX: N39.0 Urinary tract infection, site not specified (principal); R78.81 Bacteremia; J96.11 Chronic respiratory failure with hypoxia; Z68.43 Body mass index [BMI] 50.0-59.9, adult; N18.4 Chronic kidney disease, stage 4 (severe); Z16.24 Resistance to multiple antibiotics; Z16.12 Extended spectrum beta lactamase (ESBL) resistance; R62.7 Adult failure to thrive; E11.22 Type 2 diabetes mellitus with diabetic chronic kidney disease; E11.40 Type 2 diabetes mellitus with diabetic neuropathy, unspecified; B96.20 Unspecified Escherichia coli [E. coli] as the cause of diseases classified elsewhere; J44.9 Chronic obstructive pulmonary disease, unspecified; E66.01 Morbid (severe) obesity due to excess calories; I48.0 Paroxysmal atrial fibrillation; L98.499 Non-pressure chronic ulcer of skin of other sites with unspecified severity; I12.9 Hypertensive chronic kidney disease with stage 1 through stage 4 chronic kidney disease, or unspecified chronic kidney disease; F32.A Depression, unspecified; G47.33 Obstructive sleep apnea (adult) (pediatric); E78.5 Hyperlipidemia, unspecified; K21.9 Gastro-esophageal reflux disease without esophagitis; L30.4 Erythema intertrigo; F41.9 Anxiety disorder, unspecified; R32 Unspecified urinary incontinence; G89.29 Other chronic pain; R53.1 Weakness; Z79.82 Long term (current) use of aspirin; Z79.899 Other long term (current) drug therapy
CPT/HCPCS: 36415; 71045; 76770; 80048; 80053; 81001; 82803; 82962; 83605; 84484; 85025; 85610; 85730; 87040; 87077; 87086; 87088; 87186; 87633; 93005; 94640; 94668; 97162; 97166; 97530; 97535; 97802; 99252; 99285; J2185; P9612; A4216; G0463

== ENCOUNTER 2023-05-31 12:40 | Outpatient (CLI) | payer MEDICARE, OTHER, SELFPAY ==
[2023-05-31] MEDS: Ertapenem Sod 1 GM/10 ML Vial IM (13:19)
== END 2023-05-31 13:26 | disposition home or self-care (01) ==
LOC: MEDOUTP 12:40 → MS3 12:40
PROVIDERS: PCP Internal Medicine; Referring Provider Internal Medicine Infectious Disease; Visit Provider Internal Medicine Infectious Disease
DX: B99.9 Unspecified infectious disease (principal)
CPT/HCPCS: 96372

== ENCOUNTER 2023-06-01 12:38 | Outpatient (CLI) | payer MEDICARE, OTHER, SELFPAY ==
[2023-06-01] MEDS: Ertapenem Sod 1 GM/10 ML Vial IM (12:44)
== END 2023-06-01 12:49 | disposition home or self-care (01) ==
LOC: MEDOUTP 12:40 → PCU 12:41
PROVIDERS: PCP Internal Medicine; Referring Provider Internal Medicine Infectious Disease; Visit Provider Internal Medicine Infectious Disease
DX: B99.9 Unspecified infectious disease (principal)
CPT/HCPCS: 96372

== ENCOUNTER 2023-06-02 12:41 | Outpatient (CLI) | payer MEDICARE, OTHER, SELFPAY ==
[2023-06-02 12:59] VITALS: BP 132/50; PULSE 82; RESP 18; TEMP 36.7; O2SAT 95; BMI 52.7
[2023-06-02] MEDS: Ertapenem Sod 1 GM/10 ML Vial IM (13:10)
== END 2023-06-02 12:42 | disposition home or self-care (01) ==
LOC: MEDOUTP 12:44
PROVIDERS: PCP Internal Medicine; Referring Provider Internal Medicine Infectious Disease; Visit Provider Internal Medicine Infectious Disease
DX: B99.9 Unspecified infectious disease (principal)
CPT/HCPCS: 96372

== ENCOUNTER 2023-06-03 12:49 | Outpatient (CLI) | payer MEDICARE, OTHER, SELFPAY ==
[2023-06-03 12:55] VITALS: BP 124/49; PULSE 63; RESP 16; TEMP 36.2; O2SAT 94; BMI 46.7
[2023-06-03] MEDS: Ertapenem Sod 1 GM/10 ML Vial IM (13:08)
== END 2023-06-03 12:50 | disposition home or self-care (01) ==
LOC: MEDOUTP 12:49
PROVIDERS: PCP Internal Medicine; Referring Provider Internal Medicine Infectious Disease; Visit Provider Internal Medicine Infectious Disease
DX: B99.9 Unspecified infectious disease (principal)
CPT/HCPCS: 96372

== ENCOUNTER 2023-06-04 12:58 | Outpatient (CLI) | payer MEDICARE, OTHER, SELFPAY ==
[2023-06-04 13:03] VITALS: BP 119/35; PULSE 71; RESP 18; TEMP 36.2; O2SAT 96
[2023-06-04] MEDS: Ertapenem Sod 1 GM/10 ML Vial IM (13:33)
== END 2023-06-04 12:59 | disposition home or self-care (01) ==
LOC: MEDOUTP 12:58
PROVIDERS: PCP Internal Medicine; Referring Provider Internal Medicine Infectious Disease; Visit Provider Internal Medicine Infectious Disease
DX: B99.9 Unspecified infectious disease (principal)
CPT/HCPCS: 96372

== ENCOUNTER 2023-06-04 14:03 | Emergency (ER) | payer MEDICARE, OTHER, SELFPAY ==
[2023-06-04 14:04] VITALS: BP 134/65; PULSE 60; RESP 16; TEMP 35.8; O2SAT 99
[2023-06-04 14:06] VITALS: BP 139/60; PULSE 60; RESP 18; TEMP 36.7; O2SAT 99
--- NOTE | 2023-06-04 14:43 | EDS_ITS ---
HPI History of Present Illness Chief Complaint: Hypotension Narrative Narrative: Patient presenting for evaluation of a low blood pressure received in office today. Patient states it was 117/36 she believes. Patient states he was a little lightheaded. Patient has been treated outpatient for UTI. She has been getting shots IM ertapenem. She states she feels well. She denies fevers or chills. She denies chest pain or shortness of breath. She denies nausea or vomiting. She denies any pain. She does admit that she did not urinate as much as she usually does today and she is on Lasix. [facility] Medical History Abdominal pannus Anxiety and depression Bacteremia due to Escherichia coli Bilateral pulmonary embolism (07/2014) Chronic anemia Chronic obstructive pulmonary disease with hypoxia CKD (chronic kidney disease), stage IV Essential hypertension GERD (gastroesophageal reflux disease) History of venous thromboembolism Morbid obesity Multiple thyroid nodules Open abdominal wall wound ROBBI treated with BiPAP Osteomyelitis of cervical spine Postoperative atrial fibrillation (06/2014) Type 2 diabetes mellitus UTI (urinary tract infection) Home Medications ergocalciferol (vitamin D2) 1,250 mcg (50,000 unit) capsule 50,000 unit PO MAZA SUPPLEMENT 02/25/20 [History Last Taken 04/15/23] fluoxetine 20 mg capsule 20 mg PO DAILY DEPRESSION 02/25/20 [History Last Taken 02/25/20] rosuvastatin 5 mg tablet (Crestor) 5 mg PO QHS cholesterol 01/16/21 [History Last Taken Unknown] pantoprazole 40 mg tablet,delayed release 40 mg PO DAILY reflux 03/12/21 [History Last Taken Unknown] metoprolol tartrate 25 mg tablet 25 mg PO QHS blood pressure 02/17/23 [History Last Taken 04/15/23] amiodarone 200 mg tablet 200 mg PO DAILY heart rate #0 tabs 02/26/23 [Rx Last Taken 04/15/23] albuterol sulfate 90 mcg/actuation breath activated powder inhaler 2 inh inhalation .000 PRN shortness of breath 03/27/23 [History Last Taken 04/16/23 08:22] ammonium lactate 12 % lotion (Skin Treatment) 1 applic topical DAILY PRN dry skin 03/27/23 [History Last Taken Unknown] aspirin 81 mg tablet,delayed release (Ecotrin Low Strength) 81 mg PO DAILY heart health 03/27/23 [History Last Taken 04/15/23] furosemide 40 mg tablet 40 mg PO DAILY diuretic 03/27/23 [History Last Taken 04/15/23] mometasone-formoterol HFA 100 mcg-5 mcg/actuation aerosol inhaler (Dulera) 2 inh inhalation BID breathing 03/27/23 [History Last Taken Unknown] vitamin B complex and vitamin C no.20-folic acid 1 mg capsule (Renal Caps) 1 cap PO DAILY vitamin 03/27/23 [History Last Taken Unknown] ertapenem 1 gram solution for injection 1 g IM DAILY #7 ea 05/29/23 [Rx Last Taken Unknown] L.acidophil,salivari-Bifido bifidum-Strep thermoph 175 mg capsule 1 cap PO BID #0 caps 05/30/23 [Rx Last Taken Unknown] d-mannose 500 mg capsule 2,000 mg (4 x 500 mg) PO DAILY 1 month #120 caps 05/30/23 [Rx Last Taken Unknown] sennosides 8.6 mg-docusate sodium 50 mg tablet (Stool Softener-Stimulant Laxative) 2 tab PO BID #0 tabs 05/30/23 [Rx Last Taken Unknown] Allergy/AdvReac Type Severity Reaction Status Date / Time Food Allergies: Uncoded Allergy Swelling Verified 06/04/23 14:04 ibuprofen Allergy Shortness Verified 06/04/23 14:04 of breath oxycodone HCl [From Percocet] Allergy dizziness Verified 06/04/23 14:04 procaine [From Novocain] Allergy Other Verified 06/04/23 14:04 Family History Father Diabetes Mother CAD (coronary artery disease) Heart disease Hypertension Myocardial infarction Surgical History History of History of cholecystectomy History of spinal fusion Social History household members: family Smoking Status: Never smoker alcohol intake: never substance use type: does not use ROS ROS ED Constitutional Constitutional ED: Denies chills, fever(s) or sweats Eyes Eyes: Denies blurry vision or change in vision ENT ENT ED: Denies ear pain or sore throat Cardiovascular Cardiovascular: Denies chest pain, palpitations or racing heartbeat Respiratory/Chest Respiratory/Chest: Denies cough, dyspnea or sputum Gastrointestinal Gastrointestinal: Denies abdominal pain, constipation, diarrhea, nausea or vomiting Genitourinary Genitourinary ED: Denies dysuria, hematuria or urinary frequency Musculoskeletal Musculoskeletal: Denies arthralgias, myalgias or neck pain Integumentary Denies abscess, Abrasions or rash Neurologic Neurologic: Denies headache(s), paresthesias or weakness Psychiatric Psychiatric: Denies anxiety, depression, suicidal ideation or suicidal thoughts Endocrine Endocrinology: Denies polydipsia or polyuria EXAM Physical Exam Const Vital Signs: 06/04/23 14:04 06/04/23 14:06 06/04/23 14:18 Temperature 96.5 F L 98.1 F Temperature Source Temporal Temporal Pulse Rate 60 60 Respiratory Rate 16 18 Respiratory Effort Normal Respiratory Pattern Normal Blood Pressure 134/65 H 139/60 H Blood Pressure Mean 88 86 Pulse Ox 99 99 Oxygen Delivery Method Nasal Cannula Nasal Cannula Oxygen Flow Rate (L/min) 2 2 06/04/23 16:03 06/04/23 17:08 Temperature 97.2 F L Temperature Source Pulse Rate 63 63 Respiratory Rate 19 H 18 Respiratory Effort Respiratory Pattern Blood Pressure 127/50 H 140/61 H Blood Pressure Mean 75 87 Pulse Ox 98 97 Oxygen Delivery Method Room Air Oxygen Flow Rate (L/min) Positive well nourished HEENT Reports moist mucous membranes Eyes PERRL and EOMs intact bilaterally Neck no lymphadenopathy Chest Wall inspection of chest normal Resp normal respiratory effort Cardio regular rate Neuro oriented x3 and CN's II-XII intact bilaterally Sensorium / Orientation: alert Psych mental status grossly normal MDM MDM MDM Narrative Medical decision making narrative: Patient presenting with low blood pressure from office today. Here it has been 134/65 and 139/60. She denies any symptoms. We initially discussed checking some basic lab work and urinalysis. Patient is normal to get out of his wheelchair however. CBC was obtained and shows normal blood cell count 7.5. Hemoglobin is 12. Platelets are normal. Urinalysis does not look to be infected. Patient's vitals are remained stable. Patient felt well enough to go home. Since her blood work and urine are normal I will discharge her. Return precautions discussed. Impression: 1. History of hypotension 2. History of UTI Lab Data Labs: Laboratory Results - last 24 hr 06/04/23 06/04/23 15:30 15:48 WBC 7.5 RBC 4.07 L Hgb 12.0 Hct 39.3 MCV 96.6 MCH 29.5 MCHC 30.5 L RDW Std Deviation 46.7 H RDW Coeff of Ruben 13.2 Plt Count 215 MPV 11.4 Immature Gran % (Auto) 2.700 H Neut % (Auto) 65.9 Lymph % (Auto) 15.3 L [place] % (Auto) 9.3 Eos % (Auto) 5.9 H Baso % (Auto) 0.9 Absolute Neuts (auto) 5.0 Absolute Lymphs (auto) 1.15 Nucleated RBC % 0 Sodium 144 Potassium 3.2 L Chloride 104 Carbon Dioxide 37.0 H Anion Gap 3 L BUN 20 H Creatinine 1.58 H Est GFR (MDRD) Af Amer 41 L Est GFR (MDRD) Non-Af 34 L BUN/Creatinine Ratio 12.7 Glucose 96 Calcium 9.7 Urine Color Yellow Urine Clarity Clear Urine pH 6.5 Ur Specific Elizabeth 1.010 Urine Protein Negative Urine Glucose (UA) Normal Urine Ketones Negative Urine Occult Blood Negative Urine Nitrite Negative Urine Bilirubin Negative Urine Urobilinogen Normal Ur Leukocyte Esterase 25 H Urine RBC 0 SEEN Urine WBC 0-5 SEEN Ur Squamous Epith Cells 0 SEEN Urine Bacteria 0 SEEN Urine Mucus 0 SEEN Discharge Plan Triage Chief Complaint: Hypotension ED Provider: Kenneth Hawthorne Dx/Rx/DC Orders Prescriptions: No Action pantoprazole 40 mg tablet,delayed release (DR/EC) 40 mg PO DAILY ergocalciferol (vitamin D2) 50,000 UNIT capsule 50,000 unit PO MAZA Patient Comments: take 1 capsule by mouth every week fluoxetine 20 MG capsule 20 mg PO DAILY Patient Comments: depression rosuvastatin [Crestor] 5 mg Tablet 5 mg PO QHS furosemide 40 mg tablet 40 mg PO DAILY aspirin [Ecotrin Low Strength] 81 mg tablet,delayed release (DR/EC) 81 mg PO DAILY Dulera 100-5 mcg/actuation HFA aerosol inhaler 2 inh inhalation BID Renal Caps 1 mg capsule 1 cap PO DAILY albuterol sulfate 90 mcg/actuation aerosol powdr breath activated 2 inh inhalation .000 PRN (Reason: shortness of breath) ammonium lactate [Skin Treatment] 12 % lotion 1 applic topical DAILY PRN (Reason: dry skin) Patient Comments: APPLIES TO LEGS metoprolol tartrate 25 mg tablet 25 mg PO QHS amiodarone 200 mg Tablet 200 mg PO DAILY Qty: 0 0RF ertapenem 1 gram recon soln 1 g IM DAILY Qty: 7 0RF Rx Instructions: 1 gm IM ertapenem daily. Reconstitute with lidocaine. dx: ESBL infection weekly bmp, cbc, and LFT. Fax to [phone]. LNitinacidoph,saliva-B.bif-S.therm 175 mg Capsule 1 cap PO BID Qty: 0 0RF Rx Instructions: At least till the patient finishes the antibiotic. Available OTC sennosides-docusate sodium [Stool Softener-Stimulant Laxat] 8.6-50 mg Tablet 2 tab PO BID Qty: 0 0RF Rx Instructions: Available [id number]. d-mannose 500 mg capsule 2,000 mg PO DAILY 30 Days Qty: 120 0RF Primary Care Provider: Sandrine Mireles Referrals: Sandrine Mireles MD [Primary Care Provider] - Disposition Disposition: Home, Self Care Discharge Date/Time: 06/04/23 17:11
[2023-06-04 15:40] LABS: Bacteria 0 SEEN /hpf (None Seen); Mucous, Urine 0 SEEN /hpf (<or=2+); Red Blood Cells-Urine 0 SEEN /hpf (0-5); Squamous Epithelial Cells - UA 0 SEEN /hpf (5-10)
--- NOTE | 2023-06-04 15:50 | ED.RN ---
pt refusing to get into bed for IV start and labs. multiple RNs attempted to assist pt into bed but patient refused repeatedly. IV access obtained with patient in wheelchair and care provided for patient.
[2023-06-04 15:51] LABS: Color, Urine Yellow (Yellow); Glucose, Dipstick Normal (Normal); Ketone-Dipstick Negative (Negative); Leukocyte Esterase-Dipstick 25 /ul (Negative); Nitrite-Dipstick Negative (Negative); Occult Blood-Urine Negative /ul (Negative); Protein-Dipstick Negative (Negative); Urine Bilirubin Dipstick Negative (Negative); Urine Clarity Clear (Clear); Urine Urobilinogen Normal (Normal); Urine pH 6.5 (5.0 - 8.0)
[2023-06-04] MEDS: 0.9% Normal Saline (1000mL) 1,000 ML 1000 ML IV (15:54)
[2023-06-04 15:58] LABS: Absolute Lymphocyte Count 1.15 X10^3/uL (0.83-4.51); Basophil# 0.07 X10^3/uL; Basophil% 0.9 % (0-1); Eosinophil# 0.44 X10^3/uL; Eosinophils% 5.9 % (0-5); Hematocrit 39.3 % (37-47); Lymphocyte # 1.15 X10^3/ul (0.83-4.51); Lymphocyte % 15.3 % (19-41); Mean Corp Hgb Conc 30.5 g/dL (32-36); Mean Corpuscular Hgb 29.5 pg (27.0-32.0); Mean Corpuscular Volume 96.6 fL (81-99); Mean Platelet Vol. 11.4 fl (6.2-12.0); Monocyte% 9.3 % (0-10); NRBC Flagged by Analyzer 0 % (0-5); Neutrophil # 4.95 X10^3/uL (2.7-7.7); Neutrophil % 65.9 % (47-70); Platelet Count 215 K/mm3 (150-450); RBC Distribution Width CV 13.2 % (11.6-14.6); RBC Distribution Width SD 46.7 fl (35.1-43.9); Red Blood Count 4.07 M/mm3 (4.2-5.4); White Blood Count 7.5 K/mm3 (4.4-11.0)
[2023-06-04 16:03] VITALS: BP 127/50; PULSE 63; RESP 19; O2SAT 98
[2023-06-04 16:14] LABS: Anion Gap 3 (5-15); BUN 20 mg/dL (7-18); BUN/Creat Ratio 12.7 RATIO (10-20); Calcium,Total 9.7 mg/dL (8.5-10.1); Chloride 104 mmol/L (98-107); Creatinine, Serum 1.58 mg/dL (0.55-1.02); EST Glomerular Filtration Rate 34 mL/min (>60); Est Glom Filt Rate - Afr Amer 41 mL/min (>60); Glucose 96 mg/dL (74-106); Potassium 3.2 mmol/L (3.5-5.1); Sodium Level 144 mmol/L (136-145)
[2023-06-04 16:18] LABS: White Blood Cells 0-5 SEEN /hpf (0-5)
[2023-06-04 17:08] VITALS: BP 140/61; PULSE 63; RESP 18; TEMP 36.2; O2SAT 97
== END 2023-06-04 17:11 | disposition home or self-care (01) ==
PROVIDERS: Emergency Provider Student in an Organized Health Care Education/Training Program; PCP Internal Medicine; Visit Provider Student in an Organized Health Care Education/Training Program
DX: I95.9 Hypotension, unspecified (principal); N18.4 Chronic kidney disease, stage 4 (severe); E11.22 Type 2 diabetes mellitus with diabetic chronic kidney disease; B99.9 Unspecified infectious disease; I12.9 Hypertensive chronic kidney disease with stage 1 through stage 4 chronic kidney disease, or unspecified chronic kidney disease; K21.9 Gastro-esophageal reflux disease without esophagitis; Z87.440 Personal history of urinary (tract) infections
CPT/HCPCS: 80048; 81001; 85025; 96360; 96372; 99283; J7030; A4216

== ENCOUNTER 2023-06-05 13:11 | Outpatient (CLI) | payer MEDICARE, OTHER, SELFPAY ==
[2023-06-05 13:09] VITALS: BP 126/53; PULSE 68; RESP 16; TEMP 36.6; O2SAT 97
[2023-06-05] MEDS: Ertapenem Sod 1 GM/10 ML Vial IM (13:25)
== END 2023-06-05 13:12 | disposition home or self-care (01) ==
LOC: MEDOUTP 13:11
PROVIDERS: PCP Internal Medicine; Referring Provider Internal Medicine Infectious Disease; Visit Provider Internal Medicine Infectious Disease
DX: B99.9 Unspecified infectious disease (principal)
CPT/HCPCS: 96372

== ENCOUNTER 2023-06-06 13:02 | Outpatient (CLI) | payer MEDICARE, OTHER, SELFPAY ==
[2023-06-06 13:09] VITALS: BP 135/50; PULSE 67; RESP 16; TEMP 36.1; O2SAT 97
[2023-06-06] MEDS: Ertapenem Sod 1 GM/10 ML Vial IM (13:27)
[2023-06-06 13:55] LABS: Hematocrit 36.8 % (37-47); Hemoglobin 11.3 g/dL (12.0-15.0); Mean Corp Hgb Conc 30.7 g/dL (32-36); Mean Corpuscular Hgb 29.4 pg (27.0-32.0); Mean Corpuscular Volume 95.8 fL (81-99); Mean Platelet Vol. 11.1 fl (6.2-12.0); Platelet Count 212 K/mm3 (150-450); RBC Distribution Width CV 13.5 % (11.6-14.6); RBC Distribution Width SD 47.5 fl (35.1-43.9); Red Blood Count 3.84 M/mm3 (4.2-5.4)
[2023-06-06 14:06] LABS: AST(SGOT) 14 U/L (15-37); Alanine Aminotransfer ALT/SGPT 22 U/L (13-56); Albumin, Serum 2.9 g/dL (3.2-5.0); Alkaline Phosphatase 77 U/L (45-117); Anion Gap 4 (5-15); BUN 19 mg/dL (7-18); BUN/Creat Ratio 11.7 RATIO (10-20); Bilirubin, Direct 0.16 mg/dL (0.00-0.30); Calcium,Total 9.3 mg/dL (8.5-10.1); Chloride 103 mmol/L (98-107); Creatinine, Serum 1.62 mg/dL (0.55-1.02); EST Glomerular Filtration Rate 33 mL/min (>60); Est Glom Filt Rate - Afr Amer 40 mL/min (>60); Globulin 3.5 g/dL (2.2-4.2); Glucose 104 mg/dL (74-106); Potassium 3.4 mmol/L (3.5-5.1); Protein, Total 6.4 g/dL (6.4-8.2); Sodium Level 145 mmol/L (136-145)
== END 2023-06-06 13:03 | disposition home or self-care (01) ==
LOC: MEDOUTP 13:03
PROVIDERS: PCP Internal Medicine; Referring Provider Internal Medicine Infectious Disease; Visit Provider Internal Medicine Infectious Disease
DX: B99.9 Unspecified infectious disease (principal)
CPT/HCPCS: 36415; 80048; 80076; 85027; 96372

== ENCOUNTER 2023-06-25 03:09 | Inpatient (IN) | payer MEDICARE, OTHER, SELFPAY ==
[2023-06-25] VITALS (16 sets, daily range): BP systolic 84–159; BP diastolic 34–92; PULSE 62–103; RESP 12–38; TEMP 36.3–38.4; O2SAT 90–100; BMI 53.7
--- NOTE | 2023-06-25 03:48 | RAD_ITS ---
EXAM: XR CHEST, 1 VIEW CLINICAL INDICATION: SOB TECHNIQUE: Frontal view of the chest. COMPARISON: May 26, 2023. FINDINGS: LUNGS AND PLEURAL SPACES: Infiltrate/aspiration and is not excluded at the left lower lobe. Pleural-parenchymal scarring at the periphery of the left mid to lower lobe. Possible small left pleural effusion with adjacent passive atelectasis. No pneumothorax. HEART: Prominent pericardial fat pads. MEDIASTINUM: Central airways and mediastinal contour are unremarkable. BONES/JOINTS: Thoracolumbar spine posterior osteometallic fusion hardware identified, incompletely imaged. No gross hardware complications. No acute fracture. SOFT TISSUES: Unremarkable. RAD/Chest 1 View (Portable) IMPRESSION: 1. Left pleural parenchymal disease. Correlate clinically to exclude infectious etiology. 2. Ancillary findings as above. Electronically Signed: Jens Bishop MD at 4:10 EDT ,
[2023-06-25 03:56] LABS: Absolute Lymphocyte Count 0.34 X10^3/uL (0.83-4.51); Absolute Neutrophil Count 10.1 X10^3/uL (2.0-7.7); Basophil# 0.05 X10^3/uL; Basophil% 0.4 % (0-1); Eosinophil# 0.38 X10^3/uL; Eosinophils% 3.3 % (0-5); Hematocrit 37.6 % (37-47); Hemoglobin 11.5 g/dL (12.0-15.0); Lymphocyte # 0.34 X10^3/ul (0.83-4.51); Mean Corp Hgb Conc 30.6 g/dL (32-36); Mean Corpuscular Volume 94.9 fL (81-99); Mean Platelet Vol. 12.9 fl (6.2-12.0); Monocyte% 3.5 % (0-10); NRBC Flagged by Analyzer 0 % (0-5); Neutrophil # 10.12 X10^3/uL (2.7-7.7); Neutrophil % 89.2 % (47-70); POSITIVE DIFFERENTIAL YES; Platelet Count 126 K/mm3 (150-450); RBC Distribution Width CV 14.1 % (11.6-14.6); RBC Distribution Width SD 49.3 fl (35.1-43.9); Red Blood Count 3.96 M/mm3 (4.2-5.4); White Blood Count 11.4 K/mm3 (4.4-11.0)
[2023-06-25 04:13] LABS: Anion Gap 8 (5-15); BUN 40 mg/dL (7-18); BUN/Creat Ratio 13.9 RATIO (10-20); Calcium,Total 9.5 mg/dL (8.5-10.1); Chloride 108 mmol/L (98-107); Creatinine, Serum 2.88 mg/dL (0.55-1.02); EST Glomerular Filtration Rate 17 mL/min (>60); Est Glom Filt Rate - Afr Amer 20 mL/min (>60); Estimated Creatinine Clearance 25.18 ml/min; Glucose 198 mg/dL (74-106); Magnesium 1.7 mg/dL (1.6-2.6); Potassium 4.1 mmol/L (3.5-5.1); Sodium Level 142 mmol/L (136-145)
[2023-06-25 05:23] LABS: BNP,B-Type NATRIURETIC PEPTIDE 163.5 pg/mL (0-100)
--- NOTE | 2023-06-25 05:56 | PCM.HP.STD ---
[facility] - General General Date of Admission: 06/25/23 Date of Service: 06/25/23 Chief Complaint: SOB and Generalized Weakness with Inability to Ambulate. [facility] Narrative CLAIRE BRADLEY, is a 77 F with a past medical history of essential hypertension, hyperlipidemia, morbid obesity; with BMI of 53.7 this admission, obstructive sleep apnea; on BiPAP, diabetes mellitus type 2 of unknown control, diabetic neuropathy, paroxysmal atrial fibrillation; on Toprol and amiodarone but not on anticoagulation, history of bilateral PE (2014), chronic abdominal wound with persistent intertrigo, history of COPD (with no history of tobacco abuse), chronic hypoxic respiratory failure on 2 L nasal cannula, chronic kidney disease stage IV, chronic anemia, history of multiple thyroid nodules, depression with anxiety, GERD, osteoarthritis; with history of T12-L1 spinal fusion (2014), history of osteomyelitis of the cervical spine, recent history multifactorial adult failure to thrive with recent admission here from May 26, 2023 to May 30, 2023 for treatment of ESBL UTI with E. coli with urine culture and blood culture positive for Gram-negative rods treated with IV Merrem with ID consultation by Dr. Ma with patient discharged on 7 days of IM Ertapenem and still with full CODE STATUS who re-presents to [facility] ER complaining of shortness of breath and generalized weakness with inability to ambulate. Ms. Bradley reports her symptoms began a approximately 2 days prior to admission with intermittent fevers and dyspnea on exertion that progressed to shortness of breath at rest. She was initially able to go out to dinner and ambulate with a walker but then when she returned home she became more short of breath resulting in EMS activation. She admits to a productive cough of yellowish sputum in the mornings after she used her inhalers. She denies fever, chills, nausea, vomiting, diarrhea or constipation but she admits to worsening shortness of breath requiring 6 L nasal cannula. In the ER she was noted to have x-ray evidence of Left pleural parenchymal disease consistent with suspected pneumonia with leukocytosis of 11.4 present on admission and tachypnea at ~38 bpm complicated by clinical evidence of acute-on chronic respiratory insufficiency compounded by ROSELYN; evidenced by elevated serum creatinine of 2.88 milligrams per deciliter (up from her baseline of 1.62 mg/dL on her last admission) likely due at least in part to overdiuresis from Lasix (with urinalysis pending at this time and she refused Croft catheter placement) along with clinical evidence of generalized weakness with ambulatory dysfunction in the setting of known adult FTT and she was then admitted to the PCU for ongoing care for stay that is expected to be greater than 2 midnights. [facility] Medical History Abdominal pannus Anxiety and depression Bacteremia due to Escherichia coli Bilateral pulmonary embolism (07/2014) Chronic anemia Chronic obstructive pulmonary disease with hypoxia CKD (chronic kidney disease), stage IV Essential hypertension GERD (gastroesophageal reflux disease) History of venous thromboembolism Morbid obesity Multiple thyroid nodules Open abdominal wall wound ROBBI treated with BiPAP Osteomyelitis of cervical spine Postoperative atrial fibrillation (06/2014) Type 2 diabetes mellitus UTI (urinary tract infection) Home Medications ergocalciferol (vitamin D2) 1,250 mcg (50,000 unit) capsule 50,000 unit PO MAZA SUPPLEMENT 02/25/20 [History Last Taken 04/15/23] fluoxetine 20 mg capsule 20 mg PO DAILY DEPRESSION 02/25/20 [History Last Taken 02/25/20] rosuvastatin 5 mg tablet (Crestor) 5 mg PO QHS cholesterol 01/16/21 [History Last Taken Unknown] pantoprazole 40 mg tablet,delayed release 40 mg PO DAILY reflux 03/12/21 [History Last Taken Unknown] metoprolol tartrate 25 mg tablet 25 mg PO QHS blood pressure 02/17/23 [History Last Taken 04/15/23] amiodarone 200 mg tablet 200 mg PO DAILY heart rate #0 tabs 02/26/23 [Rx Last Taken 04/15/23] albuterol sulfate 90 mcg/actuation breath activated powder inhaler 2 inh inhalation .000 PRN shortness of breath 03/27/23 [History Last Taken 04/16/23 08:22] ammonium lactate 12 % lotion (Skin Treatment) 1 applic topical DAILY PRN dry skin 03/27/23 [History Last Taken Unknown] aspirin 81 mg tablet,delayed release (Ecotrin Low Strength) 81 mg PO DAILY heart health 03/27/23 [History Last Taken 04/15/23] furosemide 40 mg tablet 40 mg PO DAILY diuretic 03/27/23 [History Last Taken 04/15/23] mometasone-formoterol HFA 100 mcg-5 mcg/actuation aerosol inhaler (Dulera) 2 inh inhalation BID breathing 03/27/23 [History Last Taken Unknown] vitamin B complex and vitamin C no.20-folic acid 1 mg capsule (Renal Caps) 1 cap PO DAILY vitamin 03/27/23 [History Last Taken Unknown] ertapenem 1 gram solution for injection 1 g IM DAILY #7 ea 05/29/23 [Rx Last Taken Unknown] L.acidophil,salivari-Bifido bifidum-Strep thermoph 175 mg capsule 1 cap PO BID #0 caps 05/30/23 [Rx Last Taken Unknown] d-mannose 500 mg capsule 2,000 mg (4 x 500 mg) PO DAILY 1 month #120 caps 05/30/23 [Rx Last Taken Unknown] sennosides 8.6 mg-docusate sodium 50 mg tablet (Stool Softener-Stimulant Laxative) 2 tab PO BID #0 tabs 05/30/23 [Rx Last Taken Unknown] Allergy/AdvReac Type Severity Reaction Status Date / Time Food Allergies: Uncoded Allergy Swelling Verified 06/25/23 03:12 ibuprofen Allergy Shortness Verified 06/25/23 03:12 of breath oxycodone HCl [From Percocet] Allergy dizziness Verified 06/25/23 03:12 procaine [From Novocain] Allergy Other Verified 06/25/23 03:12 Family History Father Diabetes Mother CAD (coronary artery disease) Heart disease Hypertension Myocardial infarction Surgical History History of History of cholecystectomy History of spinal fusion Social History household members: family Smoking Status: Never smoker alcohol intake: never substance use type: does not use ROS ROS Narrative Review of systems: General: Did have fever HENT: Denies headache, denies stuffy nose, denies sore throat EYES: Denies changes in vision Resp: Denies cough, denies shortness of breath Cardiac: Denies chest pain GI: Denies abdominal pain, denies changes in bowel, had some nausea : Denies changes in urination Extremity: Denies swelling Musculoskeletal: Feels somewhat generally weak and unwell Neuro: Denies any numbness/tingling Heme: Denies any bleeding or bruising Skin: Denies rashes Psychiatric: No complaints voiced Endocrine: No polyuria The rest of the 14 point ROS was negative except for positives in HPI. Vital Signs Vital Signs Vital Signs: 06/25/23 03:12 06/25/23 04:08 Temperature 97.6 F L Temperature Source Temporal Pulse Rate 89 94 Respiratory Rate 16 38 H Blood Pressure 125/41 H 159/69 H Blood Pressure Mean 69 99 Pulse Ox 96 93 Oxygen Delivery Method Room Air Nasal Cannula Oxygen Flow Rate (L/min) 6 6 Weight Weight: 332 lb 14.368 oz Body Mass Index (BMI) 53.7 Physical Exam Const alert, oriented x3 and no apparent distress Constitutional Narrative: Patient is morbidly obese and appears chronically ill. General Appearance: cooperative HEENT normocephalic, head/scalp atraumatic, hearing grossly normal bilaterally and moist oral mucous membranes Eyes PERRL and EOMs intact bilaterally Neck no lymphadenopathy and supple Resp Resp Narrative: Decreased breath sounds over left lower lobe with tachypnea and SOB at rest noted. Cardio regular rate and regular rhythm GI normal to inspection, nondistended, normoactive bowel sounds, soft to palpation, non-tender and non-distended GI Narrative: Morbidly obese with foul smell emanating from pannus. Extremity normal to inspection, full ROM and no clubbing, cyanosis or edema Skin Skin Narrative: Patient has tinea cruris. Neuro oriented x3, CN's II-XII intact bilaterally, moves all extremities and no focal motor deficits Sensorium / Orientation: awake, alert, oriented to person, oriented to place and oriented to time Speech: speech normal Psych affect normal Results Medical Records Data Attestation: I reviewed the patient's medical records Lab / Micro Data Attestation: I reviewed the patient's lab results. 06/25/23 03:29 06/25/23 03:29 Labs: Laboratory Results - last 24 hr 06/25/23 03:29: WBC 11.4 H, RBC 3.96 L, Hgb 11.5 L, Hct 37.6, MCV 94.9, MCH 29.0, MCHC 30.6 L, RDW Std Deviation 49.3 H, RDW Coeff of Rbuen 14.1, Plt Count 126 L, MPV 12.9 H, Immature Gran % (Auto) 0.600, Neut % (Auto) 89.2 H, Lymph % (Auto) 3.0 L, [place] % (Auto) 3.5, Eos % (Auto) 3.3, Baso % (Auto) 0.4, Absolute Neuts (auto) 10.1 H, Absolute Lymphs (auto) 0.34 L, Nucleated RBC % 0, Sodium 142, Potassium 4.1, Chloride 108 H, Carbon Dioxide 26.0, Anion Gap 8, BUN 40 H, Creatinine 2.88 H, Estim Creat Clear Calc 25.18, Est GFR (MDRD) Af Amer 20 L, Est GFR (MDRD) Non-Af 17 L, BUN/Creatinine Ratio 13.9, Glucose 198 H, Calcium 9.5, Magnesium 1.7, B-Natriuretic Peptide 163.5 H Micro: Microbiology 06/25/23 04:04 Mucosa - Nose SARS-CoV-2, Influenza & RSV (PCR) - Final Imaging Radiology Impression Chest X-Ray 06/25/23 03:48 IMPRESSION: 1. Left pleural parenchymal disease. Correlate clinically to exclude infectious etiology. 2. Ancillary findings as above. Electronically Signed: Jens Bishop MD at 4:10 EDT , Assessment & Plan Assessment/Plan (1) Left lower lobe pneumonia: QUALIFIERS: Pneumonia type: due to unspecified organism Qualified Code(s): J18.9 - Pneumonia, unspecified organism (2) Respiratory insufficiency: (3) ROSELYN (acute kidney injury): (4) Generalized weakness: (5) Ambulatory dysfunction: (6) Morbid obesity with BMI of 50.0-59.9, adult: (7) Adult failure to thrive: PLAN: Plan 1. Left pleural parenchymal disease consistent with suspected nosocomial pneumonia with leukocytosis of 11.4 present on admission - Admit to PCU. Continue broad-spectrum antibiotics with IV Merrem and await culture and sensitivity data. Check CT chest without contrast to confirm suspicion of pneumonia. Check urinary antigens for Legionella and Streptococcus pneumonia. Give scheduled Mucinex 600 mg p.o. twice daily. Give Tylenol as needed pain or fever. Give nebulizers as needed. 2. [id number] respiratory insufficiency with tachypnea and increased supplemental oxygen need to 6 L NC (up from her baseline of 2 L NC) complicating #1- Wean additional supplemental oxygen as tolerated. Check D-dimer with poor mobility and and morbid obesity with recent hospitalization. BNP 163.5 pg/mL present on admission mitigating against CHF. 3. ROSELYN; in the setting of stage IV CKD evidenced by elevated serum creatinine of 2.88 milligrams per deciliter (up from her baseline of 1.62 mg/dL on her last admission) likely due at least in part to overdiuresis from Lasix with urinalysis pending at this time and she refused Croft catheter placement compounding #1 & #2 - Hold Lasix. Volume resuscitate and recheck BMP in the AM to ensure improvement. Pure wick catheter was able to be placed in ER since patient declined Croft. 4. Generalized weakness with ambulatory dysfunction in the setting of known adult FTT arising from #1 - #3 - PT/OT and case management consult and treat for further recommendations with help appreciated in advance. 5. Recent admission here from May 26, 2023 to May 30, 2023 for treatment of ESBL UTI with E. coli with urine culture and blood culture positive for Gram-negative rods treated with IV Merrem with ID consultation by Dr. Ma with patient discharged on 7 days of IM Ertapenem and still with full CODE STATUS - Noted. 6. Morbid obesity; with BMI of 53.7 this admission plus ROBBI; on BiPAP - Weight loss will be recommended. Continue nocturnal BiPAP as previous. 7. Chronic abdominal wound with persistent intertrigo - Noted. Wound RN to see this admission with help appreciated in advance. 8. Essential hypertension - Resume home regimen plus give as needed IV hydralazine for systolic blood pressure greater than 160 mmHg. 9. Hyperlipidemia - Continue statin. 10. Diabetes mellitus type 2 of unknown control with diabetic neuropathy - ADA diet. FSBS a. AC/HS plus lowest intensity SSI. 11. Paroxysmal atrial fibrillation; on Toprol and amiodarone but not on anticoagulation - Continue home regimen. 12. History of bilateral PE (2014) - Noted. 13. History of tobacco abuse; with subsequent COPD - Stable with no evidence of acute flare at this time. Continue prn nebulizers. 14. Chronic Anemia - Stable with hemoglobin of 11.5 g/dL present on admission. 15. History of multiple thyroid nodules - Noted. 16. Depression with anxiety - Continue home regimen as previous. 17. GERD - Continue PPI. 18. Osteoarthritis; with history of T12-L1 spinal fusion (2014) - Stable. 19. History of osteomyelitis of the cervical spine - Noted. 20. DVT prophylaxis - Lovenox 40 mg sq BID. Total time: Approximately 85 minutes. Charges/Coding Visit Charges Inpatient E&M: 17398 Init Hosp L3
--- NOTE | 2023-06-25 07:03 | EX.ED.DYSGE1 ---
HPI History of Present Illness Chief Complaint: Shortness of Breath Informant: patient and family Narrative Narrative: Patient is a 77-year-old female with past medical history of congestive heart failure chronic renal disease and hyperlipidemia and wears oxygen at night. She was admitted 1 month ago secondary to bacteremia from ESBL E. coli in the urine. She states that this evening after going to dinner she developed subjective fevers and chills with increased generalized weakness to the point where she cannot stand and walk. She states that she had increased shortness of breath with this. She reports her cough is at her baseline but this is how she felt roughly 1 month ago before she developed her bacteremia and with concern for developing infection was brought in for evaluation [facility] Medical History Abdominal pannus Anxiety and depression Bacteremia due to Escherichia coli Bilateral pulmonary embolism (07/2014) Chronic anemia Chronic obstructive pulmonary disease with hypoxia CKD (chronic kidney disease), stage IV Essential hypertension GERD (gastroesophageal reflux disease) History of venous thromboembolism Morbid obesity Multiple thyroid nodules Open abdominal wall wound ROBBI treated with BiPAP Osteomyelitis of cervical spine Postoperative atrial fibrillation (06/2014) Type 2 diabetes mellitus UTI (urinary tract infection) Home Medications ergocalciferol (vitamin D2) 1,250 mcg (50,000 unit) capsule 50,000 unit PO MAZA SUPPLEMENT 02/25/20 [History Last Taken 04/15/23] fluoxetine 20 mg capsule 20 mg PO DAILY DEPRESSION 02/25/20 [History Last Taken 02/25/20] rosuvastatin 5 mg tablet (Crestor) 5 mg PO QHS cholesterol 01/16/21 [History Last Taken Unknown] pantoprazole 40 mg tablet,delayed release 40 mg PO DAILY reflux 03/12/21 [History Last Taken Unknown] metoprolol tartrate 25 mg tablet 25 mg PO QHS blood pressure 02/17/23 [History Last Taken 04/15/23] amiodarone 200 mg tablet 200 mg PO DAILY heart rate #0 tabs 02/26/23 [Rx Last Taken 04/15/23] albuterol sulfate 90 mcg/actuation breath activated powder inhaler 2 inh inhalation .000 PRN shortness of breath 03/27/23 [History Last Taken 04/16/23 08:22] ammonium lactate 12 % lotion (Skin Treatment) 1 applic topical DAILY PRN dry skin 03/27/23 [History Last Taken Unknown] aspirin 81 mg tablet,delayed release (Ecotrin Low Strength) 81 mg PO DAILY heart health 03/27/23 [History Last Taken 04/15/23] furosemide 40 mg tablet 40 mg PO DAILY diuretic 03/27/23 [History Last Taken 04/15/23] mometasone-formoterol HFA 100 mcg-5 mcg/actuation aerosol inhaler (Dulera) 2 inh inhalation BID breathing 03/27/23 [History Last Taken Unknown] vitamin B complex and vitamin C no.20-folic acid 1 mg capsule (Renal Caps) 1 cap PO DAILY vitamin 03/27/23 [History Last Taken Unknown] ertapenem 1 gram solution for injection 1 g IM DAILY #7 ea 05/29/23 [Rx Last Taken Unknown] L.acidophil,salivari-Bifido bifidum-Strep thermoph 175 mg capsule 1 cap PO BID #0 caps 05/30/23 [Rx Last Taken Unknown] d-mannose 500 mg capsule 2,000 mg (4 x 500 mg) PO DAILY 1 month #120 caps 05/30/23 [Rx Last Taken Unknown] sennosides 8.6 mg-docusate sodium 50 mg tablet (Stool Softener-Stimulant Laxative) 2 tab PO BID #0 tabs 05/30/23 [Rx Last Taken Unknown] Allergy/AdvReac Type Severity Reaction Status Date / Time Food Allergies: Uncoded Allergy Swelling Verified 06/25/23 03:12 ibuprofen Allergy Shortness Verified 06/25/23 03:12 of breath oxycodone HCl [From Percocet] Allergy dizziness Verified 06/25/23 03:12 procaine [From Novocain] Allergy Other Verified 06/25/23 03:12 Family History Father Diabetes Mother CAD (coronary artery disease) Heart disease Hypertension Myocardial infarction Surgical History History of History of cholecystectomy History of spinal fusion Social History household members: family Smoking Status: Never smoker alcohol intake: never substance use type: does not use ROS ROS ED Constitutional Constitutional ED: Reports chills, fever(s) and subjective ENT ENT ED: Denies rhinorrhea or sore throat Cardiovascular Cardiovascular: Denies chest pain Respiratory/Chest Respiratory/Chest: Reports cough and dyspnea Gastrointestinal Gastrointestinal: Denies abdominal pain, diarrhea, nausea or vomiting Genitourinary Genitourinary ED: Denies dysuria Musculoskeletal Musculoskeletal: Reports myalgias Integumentary Denies rash Neurologic Neurologic: Denies headache(s) Hematologic/Lymphatic Hematologic/Lymphatic: Denies easy bleeding or easy bruising EXAM Physical Exam Const Vital Signs: 06/25/23 03:12 06/25/23 04:08 Temperature 97.6 F L Temperature Source Temporal Pulse Rate 89 94 Respiratory Rate 16 38 H Blood Pressure 125/41 H 159/69 H Blood Pressure Mean 69 99 Pulse Ox 96 93 Oxygen Delivery Method Room Air Nasal Cannula Oxygen Flow Rate (L/min) 6 6 Positive well nourished, well developed and obese General Appearance ED: well developed; Negative for pallor Nutritional Appearance: obese HEENT HEENT Narrative: No tongue or lip swelling no oral lesions no airway edema or compromise Eyes PERRL and EOMs intact bilaterally General Eye ED: Negative for scleral icterus Neck supple and no JVD Neck Narrative: No nuchal rigidity or meningeal signs Resp Resp Narrative: Breath sounds are diminished to rule out with faint rhonchi noted in the bilateral lower lobes. There is mild tachypnea noted without nasal flaring or retractions or accessory muscle use Cardio regular rate and regular rhythm Rate: other Other Details: Heart is regular rate and rhythm with a grade 5 out of 6 holosystolic murmur GI normal to inspection, nondistended, normoactive bowel sounds, non-tender, non-distended and no masses GI Narrative: Abdomen is obese soft nontender nondistended with normal active bowel sounds No voluntary guarding or rigidity or pulsatile mass Auscultation: normoactive bowel sounds Palpation: soft Extremity Extremity Narrative: Lower extremities have chronic edema that is equal in nature with negative Homans' sign bilaterally Neuro oriented x3 and CN's II-XII intact bilaterally Neuro Narrative: Patient has generalized weakness Cranial nerves II through XII are grossly intact there are no focal neurologic deficits Sensorium / Orientation: alert Psych mental status grossly normal Skin General Skin Exam: Negative for jaundice or pallor MDM MDM MDM Narrative Medical decision making narrative: Patient presented to the ER afebrile and satting in the mid 90s on 6 L. She normally wears 2 to 3 L so she was reduced to this and her pulse ox remained in the mid 90s. With concern for pneumonia versus pneumothorax versus congestive heart failure exacerbation basic blood work and a chest x-ray were obtained. There is also concern that her symptoms could be related to influenza versus COVID versus RSV. There is also potential of early UTI as she does have a history of this recently 1 month ago. Patient blood work is obtained and shows kidney function elevated 2.88 but her chart review reveals her creatinine typically fluctuates and has been as high as 4.5 before. Viral swabs are negative and chest x-ray question developing left lower lobe pneumonia. We discussed trying to obtain a cath urine sample based on her previous history and symptoms and this is the only way to get a clean sample based on her pannus/morbid obesity. The patient does not want that performed at this time. A PureWick will be placed to obtain a clean sample and blood cultures and urine culture will be obtained as well. As patient has history of ESBL roughly 1 month ago that was sensitive to meropenem we will start this once again as it will also cover potential pneumonia. She is not showing findings of septicemia at this time and she is not requiring increased oxygen from her baseline but based on her symptoms and the fact that she has increased weakness keeping her from ambulating I do not feel she is safe for discharge. The case was discussed with medicine who agrees admit the patient at this time. History & Record Review Discussion w/independent historian: Patient and Family Lab Data Attestation: I reviewed the patient's lab results. Labs: Laboratory Results - last 24 hr 06/25/23 03:29 WBC 11.4 H RBC 3.96 L Hgb 11.5 L Hct 37.6 MCV 94.9 MCH 29.0 MCHC 30.6 L RDW Std Deviation 49.3 H RDW Coeff of Ruben 14.1 Plt Count 126 L MPV 12.9 H Immature Gran % (Auto) 0.600 Neut % (Auto) 89.2 H Lymph % (Auto) 3.0 L [place] % (Auto) 3.5 Eos % (Auto) 3.3 Baso % (Auto) 0.4 Absolute Neuts (auto) 10.1 H Absolute Lymphs (auto) 0.34 L Nucleated RBC % 0 Sodium 142 Potassium 4.1 Chloride 108 H Carbon Dioxide 26.0 Anion Gap 8 BUN 40 H Creatinine 2.88 H Estim Creat Clear Calc 25.18 Est GFR (MDRD) Af Amer 20 L Est GFR (MDRD) Non-Af 17 L BUN/Creatinine Ratio 13.9 Glucose 198 H Calcium 9.5 Magnesium 1.7 B-Natriuretic Peptide 163.5 H Radiography Diagnostic Testing: Clinical Impression(s) from Imaging Studies Chest X-Ray 06/25/23 03:48 IMPRESSION: 1. Left pleural parenchymal disease. Correlate clinically to exclude infectious etiology. 2. Ancillary findings as above. Electronically Signed: Jens Bishop MD at 4:10 EDT , Chest x-ray as interpreted by the emergency medicine physician with mild interstitial edema changes and haziness in the bilateral lower lobes concerning for developing infiltrate Management Discussion w/another healthcare provider: Hospitalist Discharge Plan Triage Chief Complaint: Shortness of Breath ED Provider: Jens Lovett Dx/Rx/DC Orders Clinical Impression: Generalized weakness, Left lower lobe pneumonia, Congestive heart failure, Chronic kidney disease, Morbid obesity with BMI of 50.0-59.9, adult Prescriptions: No Action pantoprazole 40 mg tablet,delayed release (DR/EC) 40 mg PO DAILY ergocalciferol (vitamin D2) 50,000 UNIT capsule 50,000 unit PO MAZA Patient Comments: take 1 capsule by mouth every week fluoxetine 20 MG capsule 20 mg PO DAILY Patient Comments: depression rosuvastatin [Crestor] 5 mg Tablet 5 mg PO QHS furosemide 40 mg tablet 40 mg PO DAILY aspirin [Ecotrin Low Strength] 81 mg tablet,delayed release (DR/EC) 81 mg PO DAILY Dulera 100-5 mcg/actuation HFA aerosol inhaler 2 inh inhalation BID Renal Caps 1 mg capsule 1 cap PO DAILY albuterol sulfate 90 mcg/actuation aerosol powdr breath activated 2 inh inhalation .000 PRN (Reason: shortness of breath) ammonium lactate [Skin Treatment] 12 % lotion 1 applic topical DAILY PRN (Reason: dry skin) Patient Comments: APPLIES TO LEGS metoprolol tartrate 25 mg tablet 25 mg PO QHS amiodarone 200 mg Tablet 200 mg PO DAILY Qty: 0 0RF ertapenem 1 gram recon soln 1 g IM DAILY Qty: 7 0RF Rx Instructions: 1 gm IM ertapenem daily. Reconstitute with lidocaine. dx: ESBL infection weekly bmp, cbc, and LFT. Fax to [phone]. Maryacidoph,saliva-B.bif-S.therm 175 mg Capsule 1 cap PO BID Qty: 0 0RF Rx Instructions: At least till the patient finishes the antibiotic. Available OTC sennosides-docusate sodium [Stool Softener-Stimulant Laxat] 8.6-50 mg Tablet 2 tab PO BID Qty: 0 0RF Rx Instructions: Available [id number]. d-mannose 500 mg capsule 2,000 mg PO DAILY 30 Days Qty: 120 0RF Primary Care Provider: Sandrine iMreles Referrals: Sandrine Mireles MD [Primary Care Provider] - Disposition Disposition: Acute Care Hospital [facility]
--- NOTE | 2023-06-25 07:07 | CT_ITS ---
INDICATION: Fever and cough EXAMINATION: CT CHEST WITHOUT CONTRAST - CT Chest W/O Contrast Injection TECHNIQUE: Helically acquired images were obtained of the chest. A radiation dose optimization technique was used for this scan. IV Contrast dosage and agent: None. COMPARISON: Previous plain films, 2020 FINDINGS: LUNGS, PLEURA AND LARGE AIRWAYS: Lung windows show chronic interstitial changes in both lung bonner with bibasilar atelectasis, and nonspecific pleural thickening. No organizing infiltrate or effusion. THYROID: There is a stable 3 cm left thyroid nodule/cyst. HEART AND PERICARDIUM: Heart size is normal. No pericardial effusion. CORONARY ARTERIES: Coronary artery calcification is not seen. VESSELS: Thoracic aorta is not dilated. MEDIASTINUM AND SAULO: No suspicious bulky mediastinal or hilar adenopathy. Esophagus is unremarkable. No hiatal hernia. UPPER ABDOMEN: No acute pathology. BONES: No suspicious lytic or blastic abnormality. Degenerative changes noted throughout the thoracic and lumbar spine. Surgical hardware in the lumbar spine and free of complication CT/Chest without Contrast IMPRESSION: Chronic interstitial changes in both lung bonner with nonspecific pleural thickening and bibasilar atelectasis. No organized infiltrate or effusion Stable 3 cm low-density left thyroid nodule/cyst No suspicious adenopathy Degenerative bony changes Electronically Signed: Darrick Townsend MD at 9:28 EDT ,
[2023-06-25 07:26] LABS: Lactic Acid 1.1 mmol/L (0.4-1.9)
[2023-06-25 07:44] LABS: D-Dimer Quantitative (DVT/PE) 3.54 FEU/ug/m (0.27-0.49)
[2023-06-25] MEDS: Amiodarone 200 MG Tablet PO (12:05)
[2023-06-25] MEDS: Nystatin Powder 15gm Bottle 1 APPLIC TOPICAL ×3 (12:05→21:54)
[2023-06-25] MEDS: Enoxaparin 40 MG/0.4 ML Syringe SC ×2 (12:05→21:53)
[2023-06-25] MEDS: Lactobacillis Acidophilus 1 CAP PO ×2 (12:05→21:53)
[2023-06-25] MEDS: Senna/Docusate Sodium 1 Tablet 2 TABLET PO ×2 (12:06→21:53)
[2023-06-25] MEDS: Pantoprazole Sodium 40 MG Tablet PO (12:06)
[2023-06-25] MEDS: Folic Acid/Vitamin B Comp W-C 1 Capsule 1 CAP PO (12:06)
[2023-06-25] MEDS: FLUoxetine 20 MG Capsule PO (12:06)
[2023-06-25] MEDS: 0.9% Normal Saline (1000mL) 1,000 ML 75 ML IV (12:20)
[2023-06-25] MEDS: Meropenem 1 GM in 0.9% Normal Saline (100mL MB+) 100 ML IV ×2 (12:20→22:02)
[2023-06-25] MEDS: Acetaminophen 325 MG Tablet 650 MG PO ×2 (12:22→22:15)
[2023-06-25] MEDS: Albuterol 2.5 MG/3 ML VIAL.NEB. INHALATION ×2 (12:44→19:22)
[2023-06-25 13:33] LABS: Allen Test Positive; Base Excess 1 mmol/L (-2 to +2); Bicarbonate 26.6 mmol/L (22-26); Blood Gas Specimen Type ART; Mode ST; O2 Delivery Device BiPAP; PEEP 10; PO2 94 mmHG (75-100); RR 12; SITE L Radial; SO2 97 % (95-99); Total Carbon Dioxide 28 mmol/L; pCO2 47.2 mmHg (35-45); pH 7.36 (7.35-7.45)
--- NOTE | 2023-06-25 14:02 | WOUNDNOTE ---
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 this has been present for a long time. patient is known to this nurse from previous admissions. pt had a wound to the abdominal fold, but daughter states the wound has healed. daughter refusing to let this nurse assess the folds at this time. states can we just leave her alone today? she has been through a lot today. will assess the folds in the am. daughter appreciative of the cooperation.
--- NOTE | 2023-06-25 14:48 | PCM.PN.BLA ---
Progress Note Some mild respiratory distress, pH was 7.36 and PaCO2 was only 47.2 however will initiate BiPAP therapy given the pneumonia.
[2023-06-25 15:14] LABS: Mucous, Urine 0 SEEN /hpf (<or=2+)
[2023-06-25 15:16] LABS: Color, Urine Yellow (Yellow); Glucose, Dipstick Normal (Normal); Ketone-Dipstick Negative (Negative); Leukocyte Esterase-Dipstick 500 /ul (Negative); Nitrite-Dipstick Negative (Negative); Occult Blood-Urine 250 /ul (Negative); Protein-Dipstick 30 mg/dl (Negative); Specific Gravity, Urine 1.015 (1.002-1.030); Urine Bilirubin Dipstick Negative (Negative); Urine Clarity Sl. Cloudy (Clear); Urine Urobilinogen Normal (Normal)
[2023-06-25 15:27] LABS: Bacteria 2+ /hpf (None Seen); Red Blood Cells-Urine 25-50 SEEN /hpf (0-5); Squamous Epithelial Cells - UA 0-5 SEEN /hpf (5-10); White Blood Cells 25-50 SEEN /hpf (0-5)
--- NOTE | 2023-06-25 15:30 | CASEMGMT ---
RN CM Chart review: Patient was admitted 05/25-05/30/23 for UTI, bacteremia due to E. coli. See RN CM assessment from 05/26/23. Patient was discharged to home with daughter, outpatient [facility], outpatient therapy, and follow-up plans in place. Patient returned to [facility] ED on 06/25/23 for increased SOB and weakness. Patient was admitted for LLL pneumonia with acute on chronic heart failure. Patient was requiring 6lpm of oxygen and now currently requiring bipap at 50%. STUART BRAVO in to discuss readmission and needs at discharge. Patient currently on bipap and unable to participate in conversation, daughter at bedside. Per daughter Neema, patient has followed up with PCP twice since last admission. Per daughter, patient has been taking her medications as prescribed. Patient attended all appointments with IM antibiotics and was also attending outpatient therapy. Daughter wishes for patient to discharge with resumption of outpatient therapy. Patient has oxygen at home through [facility] and daughter will bring oxygen tank from home. Will monitor progress with therapy and increase in home oxygen needs. CM will continue to follow this patient and plan for a safe discharge.
[2023-06-25] MEDS: 0.9% Saline Lock 10 ML Syringe IV ×2 (17:42→18:42)
[2023-06-25] MEDS: Ondansetron 4 MG/2 ML Vial IV (17:42)
--- NOTE | 2023-06-25 17:49 | RAD_ITS ---
STUDY: X-RAY CHEST REASON FOR EXAM: Female, 77 years old. Increased SOB TECHNIQUE: Single AP portable view of the chest. COMPARISON: June 25, 2023, earlier the same day FINDINGS: There is lower lung scarring or atelectasis. There is no demonstrated pleural abnormality. Normal size heart. Normal mediastinum and raghav. Normal visualized pulmonary arteries. Normal visualized aortic arch and descending thoracic aorta. There is postoperative change in the lower thoracic and upper lumbar spine with hardware. Normal visualized ribs, clavicles, and shoulders. There is no demonstrated abnormality of the visualized soft tissue structures of the upper abdomen. RAD/Chest 1 View (Portable) IMPRESSION: Lower lung scarring or atelectasis. Electronically Signed: Luis Miguel Armendariz MD at 18:11 EDT ,
[2023-06-25] MEDS: LORazepam 2 MG/ML Syringe 0.5 MG IV (18:42)
[2023-06-25] MEDS: Budesonide Respules 0.5 MG/2 ML AMPUL.NEB. INHALATION (19:22)
[2023-06-25] MEDS: Atorvastatin Calcium 10 MG Tablet PO (21:53)
[2023-06-25] MEDS: 0.9% Normal Saline (500mL Bag) 500 ML 999 ML IV (23:54)
[2023-06-26] VITALS (34 sets, daily range): BP systolic 75–127; BP diastolic 34–71; PULSE 70–96; RESP 12–32; TEMP 35.9–37.1; O2SAT 91–100
[2023-06-26] MEDS: Albumin Human 25% (100 mL) 25 GM/100 ML BAG IV (01:43)
[2023-06-26] MEDS: Nystatin Powder 15gm Bottle 1 APPLIC TOPICAL ×2 (06:33→20:48)
[2023-06-26] MEDS: Albuterol 2.5 MG/3 ML VIAL.NEB. INHALATION ×3 (06:55→18:43)
[2023-06-26] MEDS: Budesonide Respules 0.5 MG/2 ML AMPUL.NEB. INHALATION ×2 (06:55→18:43)
[2023-06-26 07:30] LABS: Absolute Lymphocyte Count 0.51 X10^3/uL (0.83-4.51); Absolute Neutrophil Count 11.5 X10^3/uL (2.0-7.7); Basophil# 0.06 X10^3/uL; Basophil% 0.4 % (0-1); Eosinophil# 0.06 X10^3/uL; Eosinophils% 0.4 % (0-5); Hematocrit 31.9 % (37-47); Hemoglobin 9.7 g/dL (12.0-15.0); Lymphocyte # 0.51 X10^3/ul (0.83-4.51); Lymphocyte % 3.8 % (19-41); Mean Corp Hgb Conc 30.4 g/dL (32-36); Mean Corpuscular Hgb 29.7 pg (27.0-32.0); Mean Corpuscular Volume 97.6 fL (81-99); Mean Platelet Vol. 12.1 fl (6.2-12.0); Monocyte# 1.31 X10^3/uL; Monocyte% 9.7 % (0-10); NRBC Flagged by Analyzer 0 % (0-5); Neutrophil # 11.49 X10^3/uL (2.7-7.7); Neutrophil % 85.3 % (47-70); POSITIVE DIFFERENTIAL YES; Platelet Count 105 K/mm3 (150-450); RBC Distribution Width CV 14.2 % (11.6-14.6); Red Blood Count 3.27 M/mm3 (4.2-5.4); White Blood Count 13.5 K/mm3 (4.4-11.0)
[2023-06-26 08:03] LABS: ALB/GLOB Ratio 0.8 RATIO (0.9-2.4); AST(SGOT) 25 U/L (15-37); Alanine Aminotransfer ALT/SGPT 21 U/L (13-56); Albumin, Serum 2.4 g/dL (3.2-5.0); Alkaline Phosphatase 53 U/L (45-117); Anion Gap 4 (5-15); BUN 49 mg/dL (7-18); BUN/Creat Ratio 13.1 RATIO (10-20); Calcium,Total 9.1 mg/dL (8.5-10.1); Chloride 109 mmol/L (98-107); Creatinine, Serum 3.73 mg/dL (0.55-1.02); EST Glomerular Filtration Rate 13 mL/min (>60); Est Glom Filt Rate - Afr Amer 15 mL/min (>60); Estimated Creatinine Clearance 30.85 ml/min; Globulin 3.2 g/dL (2.2-4.2); Glucose 112 mg/dL (74-106); Magnesium 1.9 mg/dL (1.6-2.6); Phosphorus 4.9 mg/dL (2.5-4.9); Potassium 4.3 mmol/L (3.5-5.1); Protein, Total 5.6 g/dL (6.4-8.2); Sodium Level 142 mmol/L (136-145)
[2023-06-26] MEDS: 0.9% Saline Lock 10 ML Syringe IV (08:43)
[2023-06-26] MEDS: 0.9% Normal Saline (1000mL) 1,000 ML 100 ML IV ×2 (08:43→20:46)
--- NOTE | 2023-06-26 10:38 | PCM.PN.HOSP ---
Subjective Subjective Yesterday she had an episode of respiratory distress and was placed on BiPAP. This was felt to potentially be due to pulmonary edema secondary to IV fluids in the setting of heart failure as the IV fluids were stopped however chest x-ray was not significantly different than admission however blood pressures at that time were stable so she was maintained off of IV fluids. Overnight pressures dropped and she developed septic like physiology she was given a 500 cc bolus and restarted on IV fluids this morning. Objective Data Objective Data Vital Signs: Vital Signs Temp Pulse Resp BP Pulse Ox O2 Del Method O2 Flow Rate 96.7 F L 78 25 H 78/43 L 97 Bi-pap 4 06/26/23 10:00 06/26/23 10:00 06/26/23 10:00 06/26/23 10:00 06/26/23 10:00 06/26/23 10:00 06/26/23 08:06 FiO2 30 06/26/23 06:55 Oxygen Flow Rate (L/min) 4 Oxygen Delivery Method Bi-pap Weight: 335 lb 12.224 oz Body Mass Index (BMI) 0.5 Intake & Output: Intake and Output for Last 24 Hours 06/25/23 06/26/23 06/27/23 03:59 03:59 03:59 Intake Total 1480 / 1480 100 / 100 Output Total 350 / 350 Balance 1130 / 1130 100 / 100 Lab / Micro Data 06/26/23 07:10 06/26/23 07:10 Labs: Laboratory Results - last 24 hr 06/25/23 13:05: Urine Color Yellow, Urine Clarity Sl. Cloudy, Urine pH 5.0, Ur Specific [place] 1.015, Urine Protein 30 H, Urine Glucose (UA) Normal, Urine Ketones Negative, Urine Occult Blood 250 H, Urine Nitrite Negative, Urine Bilirubin Negative, Urine Urobilinogen Normal, Ur Leukocyte Esterase 500 H, Urine RBC 25-50 SEEN, Urine WBC 25-50 SEEN, Ur Squamous Epith Cells 0-5 SEEN, Urine Bacteria 2+, Urine Mucus 0 SEEN 06/26/23 07:10: WBC 13.5 H, RBC 3.27 L, Hgb 9.7 L, Hct 31.9 L, MCV 97.6, MCH 29.7, MCHC 30.4 L, RDW Std Deviation 51.0 H, RDW Coeff of Ruben 14.2, Plt Count 105 L, MPV 12.1 H, Immature Gran % (Auto) 0.400, Neut % (Auto) 85.3 H, Lymph % (Auto) 3.8 L, [place] % (Auto) 9.7, Eos % (Auto) 0.4, Baso % (Auto) 0.4, Absolute Neuts (auto) 11.5 H, Absolute Lymphs (auto) 0.51 L, Nucleated RBC % 0, Sodium 142, Potassium 4.3, Chloride 109 H, Carbon Dioxide 29.0, Anion Gap 4 L, BUN 49 H, Creatinine 3.73 H, Estim Creat Clear Calc 30.85, Est GFR (MDRD) Af Amer 15 L, Est GFR (MDRD) Non-Af 13 L, BUN/Creatinine Ratio 13.1, Glucose 112 H, Calcium 9.1, Phosphorus 4.9, Magnesium 1.9, Total Bilirubin 0.90, AST 25, ALT 21, Alkaline Phosphatase 53, Total Protein 5.6 L, Albumin 2.4 L, Globulin 3.2, Albumin/Globulin Ratio 0.8 L Micro: Microbiology 06/25/23 07:06 Blood Culture (Wb) - Port Blood Culture - Preliminary GNR lactose cardiac exercise physiologist 06/25/23 06:35 Blood Culture (Wb) - Port Blood Culture - Preliminary GNR lactose cardiac exercise physiologist 06/25/23 13:05 Urine, Clean Catch Legionella Antigen - Final 06/25/23 13:05 Urine, Clean Catch Streptococcus pneumoniae Antigen (M - Final 06/25/23 04:04 Mucosa - Nose SARS-CoV-2, Influenza & RSV (PCR) - Final ABG Data ABG results: ABG 06/25/23 13:30 Specimen Type ART Sample Site L Radial pH 7.36 Bicarbonate Actual 26.6 H Total CO2 28 Base Excess 1 O2 Saturation 97 O2 % 50.0 ABG pCO2 47.2 H ABG pO2 94 Manuel Test Positive Respiration Rate 12 O2 Delivery Device BiPAP Vent Mode ST POC PEEP 10 Radiography Diagnostic Testing: Radiology Impression Chest X-Ray 06/25/23 17:49 IMPRESSION: Lower lung scarring or atelectasis. Electronically Signed: Luis Miguel Armendariz MD at 18:11 EDT , Physical Exam Narrative General: Alert, Oriented x3, Cooperative, moderate respiratory distress HEENT: Atraumatic, PERRLA, EOMI, Normocephalic Oral: Moist Mucosa Neck: Supple, No JVD Lungs: Diminished, Normal air movement, No rhonchi, No wheeze, No rales, tachypneic cannot speak in full sentences Cardiovascular: Regular rate, Regular Rhythm, Normal S1, Normal S2, No murmurs Abdomen: Soft, Non Tender, Non-Distended, No Hepato-splenomegaly Extremities: No edema, Capillary Refill Less than 3 Seconds Skin: Tinea cruris in pannus Musculoskeletal: No Tenderness to Palpation of Joints or Extremities Neurological: No focal neurological deficits, Motor Exam 5/5 strength throughout, Sensory exam intact to light touch and pain Psych/Mental Status: Anxious Assessment & Plan Assessment/Plan (1) Left lower lobe pneumonia: QUALIFIERS: Pneumonia type: due to unspecified organism Qualified Code(s): J18.9 - Pneumonia, unspecified organism (2) Respiratory insufficiency: (3) ROSELYN (acute kidney injury): (4) Generalized weakness: (5) Ambulatory dysfunction: (6) Morbid obesity with BMI of 50.0-59.9, adult: (7) Adult failure to thrive: PLAN: Plan 1. Sepsis secondary to UTI with gram-negative flora bacteremia/acute hypercapnic respiratory failure/ROSELYN ? 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 She did not have sepsis physiology on admission but it does appear to have developed overnight with her bacteremia and her meropenem given gram-negative rods ? Will give an IV fluid bolus this morning ? Initial culture data with gram-positive rods seeing as it is unlikely she was not broadened to gram-positive coverage and this morning culture data was changed to gram-negative rods ? Continue with BiPAP, pCO2 was 47.2 yesterday on ABG ? Renal function has climbed from 2.88-3.73, she does have a baseline of stage IV CKD ? Will await finalization of cultures prior to consulting infectious disease 2. Essential HTN/HLD/paroxysmal A-fib/chronic diastolic CHF ?Given her sepsis and hypotension, will hold her blood pressure medications ? Will continue to monitor and make adjustments as necessary ? Continue with statin ? Given renal failure and sepsis, will hold Lasix 3. DM2 with neuropathy ? Continue with Accu-Cheks ? Sliding scale insulin ? Will monitor make adjustments as necessary 4. Depression/anxiety ? Stable Continue with her home medications 5. GERD ? Stable ? Continue with PPI DVT: Lovenox Sepsis Attestation Sepsis Attestation: Agree w/Sepsis Date exam was performed: 06/26/23 Time exam was performed: 08:30 Possible Source of Sepsis: Genitourinary Sepsis Organ Dysfunction Criteria Present: SBP < 90 mmHg or MAP < 65 mmHg and Creatinine > 2.0 mg/dL Fluid Resuscitation Fluid resuscitation indicated?: Yes Fluid Resuscitation ordered: Lesser volume fluid bolus ordered Amount of fluid ordered: 2,500 Reason for lesser fluid bolus:: Concern for fluid overload and Heart failure Sepsis Note Date exam was performed: 06/26/23 Time exam was performed: 12:30 Sepsis Attestation: Sepsis re-evaluation was performed Response to fluids: Fluid responsive hypotension Charges/Coding Visit Charges Inpatient E&M: 54035 Subs Hosp L2
[2023-06-26] MEDS: 0.9% Normal Saline (1000mL) 1,000 ML 999 ML IV ×2 (10:40→12:16)
[2023-06-26] MEDS: Meropenem 1 GM in 0.9% Normal Saline (100mL MB+) 100 ML IV ×2 (10:42→20:56)
--- NOTE | 2023-06-26 11:34 | WOUNDNOTE ---
In to assess abdominal folds. redness improved from the last admission. wound deep in pannus now appears healed. daughter states it had healed a few weeks ago. gently cleansed folds with soap and water. pat dry. lightly dusted with powder and placed pillow cases. the left abdominal fold with the most redness and some drainage noted. pt does not tolerated holding pannus up for long periods of time and does not tolerated having her head of bed flat.
--- NOTE | 2023-06-26 11:55 | CASEMGMT ---
Patient is going to be moved to ICU. Patient's daughter Neema was in the waiting room by the elevators. SW checked in with Neema and provided support. Neema was appreciative. Shana SAL
[2023-06-26] MEDS: FLUoxetine 20 MG Capsule PO (12:19)
[2023-06-26] MEDS: Enoxaparin 40 MG/0.4 ML Syringe SC ×2 (12:19→20:47)
--- NOTE | 2023-06-26 12:30 | NURSING ---
Report called to SIVA Byrd RN
--- NOTE | 2023-06-26 13:08 | PCM.OP.PRO ---
Procedure Report Date of Procedure: 06/26/23 Assessment & Plan Assessment/Plan (1) Respiratory insufficiency: Procedures Radiology Radiology Access Procedures: PICC Procedure Time Out Time Out Informed consent given: Yes Consent signed: Yes Time out checklist: patient, procedure, site marked/identified, positioning of patient, supplies available and allergies confirmed Time out verified: Yes Time out date: 06/26/23 Time out time: 12:13 PICC Line Consent Screening tool completed:: Yes Consent obtained:: Yes Consent given by (patient or responsible alliance party):: PATIENT'S DAUGHTER Line successful (if no, document why in comments):: Yes Insertion Reason for Insertion: Poor Venous Access Date of Insertion: 06/26/23 Ok to use: Yes Type of PICC inserted: Dual Power PICC PICC Lot #: [id number] PICC Reference #: [id number] Microintroducer Used: Yes (in kit) Ultrasound/Equipment Used: Probe Cover Kit Trimmed Length (cm): 45 Insertion Length (cm): 45 Exposed Length (cm): 0 Tip Placement: Caval Atrial Junction Placement Confirmation: 3CG Insertion Vein: Right Basilic Insertion Attempts: 1 Local Anesthesia Used: Lidocaine 1% (in kit) Dressing Applied: Statlock and Tegaderm CHG Arm Measurement above site (in cm): 33 Patient Tolerated Procedure: Well Threading Difficulties: No Comments Comment: Patient identity was verified with two patient identifiers. Informed consent was obtained and time-out was completed. Hands were sanitized. The patient was positioned supine with right arm at 90 degrees. The patient's upper arm vasculature was assessed using ultrasound. Patency of the right basilic vein was confirmed and the vein was externally marked. An external measurement was obtained of 45 cm. External leads were applied to the patient's right upper chest and laterally and inferior of the umbilicus on the mid axillary line. Cap, mask, and prep gloves were donned. The underdrape was placed under the patient's arm. The site was prepped with chlorhexidine, and tourniquet was loosely applied. Prep gloves were discarded, and hands were sanitized. The sterile kit was opened with additional supplies dropped in. Sterile gown and gloves were donned, and the patient was draped. The sterile kit was assembled with needle, introducer, needless connectors, and each catheter lumen flushed with sterile normal saline. The marked site of insertion was anesthetized with 1% lidocaine from the kit. Patient tolerated well. The right basilic vein was then accessed using ultrasound guidance and guidewire was inserted to safety doroteo. The tourniquet was released. The access needle was removed while securing the guidewire in place. The site was again anesthetized with 1% lidocaine, prior to insertion of introducer sheath and dilator. Patient tolerated the insertion well. The catheter was trimmed to a length of 45 cm. Using 3C guidance, the catheter was then inserted through the introducer sheath, slowly. There was minimal resistance on insertion, but with arm repositioning and flushing the catheter advanced easily. The catheter followed the expected course of the vessel using 3CG tracking. The introducer sheath was retracted and peeled away, incrementally, while keeping the catheter secured. Maximal p-wave, without deflection, confirming placement in the cavoatrial junction, was obtained at an insertion length of 45 cm, leaving 0 cm external. The stylet was removed. A flushed needleless connector was attached to the lumen. Aspiration of the lumen was performed to remove any air and confirm blood return. Blood return was verified and each lumen was flushed with 10 ml of sterile normal saline in a pulsatile fashion. The each lumen was clamped with the last pulsed flush. Total sterile flushes used for the insertion was 7 10 ml syringes, 2 from the kit. Finally, the insertion site was cleaned with chlorhexidine, and the catheter was secured using a StatLock. The site was covered with a Tegaderm CHG Dressing and disinfecting caps were applied. Baseline arm circumference was obtained at the insertion site and measured 33 cm. The patient was provided with a patient education handout on PICC line care of infection prevention, heavy lifting restriction, maintaining mobility, and watching for any signs of infection. The charge nurse is aware that the PICC line is ready for use.
--- NOTE | 2023-06-26 13:15 | NURSING ---
Abdiel RT to room to assist with transfer. Pt taken to ICU.
--- NOTE | 2023-06-26 13:24 | CON.PCM.CC_ITS ---
Assessment & Plan Assessment/Plan (1) Sepsis: PLAN: Plan RECOMMENDATIONS: 1. Continue empiric antibiotics. Obtain ID consultation. 2. Continue BiPAP therapy with naps and nightly. 3. If the patient once again becomes hypotensive, recommend initiation of vasopressor support. 4. Continue appropriate DVT prophylaxis. 5. Encourage incentive spirometer use and mobilize patient as tolerated. IMPRESSIONS: 1. Gram-negative sepsis The patient again appears to have gram-negative bacteremia a presumptive urinary source. Cultures are currently pending. Low suspicion for underlying pneumonia. Although the patient was initially hypotensive, she appears to have responded to IV fluid resuscitation. Nevertheless, if the patient once again becomes hypotensive, recommend initiation of vasopressor support. In the interim, continue antimicrobial therapy and obtain follow-up consultation from infectious diseases. 2. Super morbid obesity/obstructive sleep apnea/hypertension/paroxysmal atrial fibrillation/diabetes mellitus/GERD/depression Complicates care, management, recovery and prognosis. Recommend holding home antihypertensives. Remainder of supportive care as noted above. This note was generated with [employer] dictation software. It may contain incorrect words, spelling, and punctuation that were not noted in checking the note before signing. HPI Consult Data Date of Consult: 06/27/23 HPI Narrative Reason for Consultation: Gram-negative sepsis HPI Narrative: The patient is a 77-year-old female, with a history as outlined below, who presented to the emergency department via EMS on June 24 with generalized weakness and shortness of breath. The patient was recently hospitalized last month with ESBL E. coli UTI. The patient was evaluated by infectious diseases during that hospitalization and discharged home on IM daily ertapenem. Patient has a medical history including morbid obesity, obstructive sleep apnea, diabetes mellitus, paroxysmal atrial fibrillation, history of PE and chronic kidney disease. On presentation to the emergency department, the patient was documented to be afebrile and hemodynamically stable. Initial laboratory evaluation revealed a white blood cell count of 11,000. Chemistry profile was notable for a BUN of 40 and creatinine of 2.8. Lactate was normal at 1.1. Urinalysis was positive for leukocyte esterase and 2+ urine bacteria. CT chest demonstrated chronic interstitial changes without any organized infiltrate or effusion. Blood cultures were found to be positive for gram-negative rods, lactose supervisor cell maintenance. The patient was subsequently placed on antimicrobials. It appears that the patient became hypotensive last night and remained so, despite fluid resuscitation. The patient did receive additional IV fluid resuscitation today, and her hemodynamic status appears to be responding. On arrival to the ICU, the patient was normotensive and mentating appropriately on BiPAP. She did confirm that she regularly utilizes PAP therapy at home with a 2 L/min oxygen bleed. [facility] Medical History Abdominal pannus Anxiety and depression Bacteremia due to Escherichia coli Bilateral pulmonary embolism (07/2014) Chronic anemia Chronic obstructive pulmonary disease with hypoxia CKD (chronic kidney disease), stage IV Essential hypertension GERD (gastroesophageal reflux disease) History of venous thromboembolism Morbid obesity Multiple thyroid nodules Open abdominal wall wound ROBBI treated with BiPAP Osteomyelitis of cervical spine Postoperative atrial fibrillation (06/2014) Type 2 diabetes mellitus UTI (urinary tract infection) Home Medications ergocalciferol (vitamin D2) 1,250 mcg (50,000 unit) capsule 50,000 unit PO MAZA SUPPLEMENT 02/25/20 [History Last Taken 04/15/23] fluoxetine 20 mg capsule 20 mg PO DAILY DEPRESSION 02/25/20 [History Last Taken 02/25/20] rosuvastatin 5 mg tablet (Crestor) 5 mg PO QHS cholesterol 01/16/21 [History Last Taken Unknown] pantoprazole 40 mg tablet,delayed release 40 mg PO DAILY reflux 03/12/21 [History Last Taken Unknown] metoprolol tartrate 25 mg tablet 25 mg PO QHS blood pressure 02/17/23 [History Last Taken 04/15/23] amiodarone 200 mg tablet 200 mg PO DAILY heart rate #0 tabs 02/26/23 [Rx Last Taken 04/15/23] albuterol sulfate 90 mcg/actuation breath activated powder inhaler 2 inh inhalation .000 PRN shortness of breath 03/27/23 [History Last Taken 04/16/23 08:22] ammonium lactate 12 % lotion (Skin Treatment) 1 applic topical DAILY PRN dry skin 03/27/23 [History Last Taken Unknown] aspirin 81 mg tablet,delayed release (Ecotrin Low Strength) 81 mg PO DAILY heart health 03/27/23 [History Last Taken 04/15/23] furosemide 40 mg tablet 40 mg PO DAILY diuretic 03/27/23 [History Last Taken 04/15/23] mometasone-formoterol HFA 100 mcg-5 mcg/actuation aerosol inhaler (Eric) 2 inh inhalation BID breathing 03/27/23 [History Last Taken Unknown] vitamin B complex and vitamin C no.20-folic acid 1 mg capsule (Renal Caps) 1 cap PO DAILY vitamin 03/27/23 [History Last Taken Unknown] L.acidophil,salivari-Bifido bifidum-Strep thermoph 175 mg capsule 1 cap PO BID #0 caps 05/30/23 [Rx Last Taken Unknown] d-mannose 500 mg capsule 2,000 mg (4 x 500 mg) PO DAILY 1 month #120 caps 05/30/23 [Rx Last Taken Unknown] sennosides 8.6 mg-docusate sodium 50 mg tablet (Stool Softener-Stimulant Laxative) 2 tab PO BID PRN constipation 06/25/23 [History Last Taken Unknown] Allergy/AdvReac Type Severity Reaction Status Date / Time Food Allergies: Uncoded Allergy Swelling Verified 06/25/23 03:12 ibuprofen Allergy Shortness Verified 06/25/23 03:12 of breath oxycodone HCl [From Percocet] Allergy dizziness Verified 06/25/23 03:12 procaine [From Novocain] Allergy Other Verified 06/25/23 03:12 Family History Father Diabetes Mother CAD (coronary artery disease) Heart disease Hypertension Myocardial infarction Surgical History History of History of cholecystectomy History of spinal fusion Social History household members: family Smoking Status: Never smoker alcohol intake: never substance use type: does not use ROS ROS Narrative 10 systems were reviewed with pertinent positives as noted in the HPI above. Physical Exam Const alert and no apparent distress Constitutional Narrative: BiPAP mask in place. Super morbidly obese. General Appearance: cooperative HEENT normocephalic and head/scalp atraumatic Eyes PERRL, EOMs intact bilaterally and conjunctivae normal Neck supple General: trachea midline Chest inspection of chest normal Resp Auscultation: diminished lung sounds; Negative for rales, rhonchi or wheezes Cardio regular rate and regular rhythm GI normal to inspection, nondistended, normoactive bowel sounds Extremity General Extremity: edema; Negative for clubbing Skin General Skin Exam: erythema Neuro CN's II-XII intact bilaterally, moves all extremities and no focal motor deficits Psych cooperative and affect normal Lab / Micro Data 06/27/23 04:23 06/27/23 04:23 Labs: Laboratory Results - last 24 hr 06/25/23 13:05: Urine Color Yellow, Urine Clarity Sl. Cloudy, Urine pH 5.0, Ur Specific [place] 1.015, Urine Protein 30 H, Urine Glucose (UA) Normal, Urine Ketones Negative, Urine Occult Blood 250 H, Urine Nitrite Negative, Urine Bilirubin Negative, Urine Urobilinogen Normal, Ur Leukocyte Esterase 500 H, Urine RBC 25-50 SEEN, Urine WBC 25-50 SEEN, Ur Squamous Epith Cells 0-5 SEEN, Urine Bacteria 2+, Urine Mucus 0 SEEN 06/26/23 07:10: WBC 13.5 H, RBC 3.27 L, Hgb 9.7 L, Hct 31.9 L, MCV 97.6, MCH 29.7, MCHC 30.4 L, RDW Std Deviation 51.0 H, RDW Coeff of Ruben 14.2, Plt Count 105 L, MPV 12.1 H, Immature Gran % (Auto) 0.400, Neut % (Auto) 85.3 H, Lymph % (Auto) 3.8 L, [place] % (Auto) 9.7, Eos % (Auto) 0.4, Baso % (Auto) 0.4, Absolute Neuts (auto) 11.5 H, Absolute Lymphs (auto) 0.51 L, Nucleated RBC % 0, Sodium 142, Potassium 4.3, Chloride 109 H, Carbon Dioxide 29.0, Anion Gap 4 L, BUN 49 H , Creatinine 3.73 H, Estim Creat Clear Calc 30.85, Est GFR (MDRD) Af Amer 15 L, Est GFR (MDRD) Non-Af 13 L, BUN/Creatinine Ratio 13.1, Glucose 112 H, Calcium 9.1, Phosphorus 4.9, Magnesium 1.9, Total Bilirubin 0.90, AST 25, ALT 21, Alkaline Phosphatase 53, Total Protein 5.6 L, Albumin 2.4 L, Globulin 3.2, Albumin/Globulin Ratio 0.8 L Micro: Microbiology 06/25/23 13:00 Urine, Clean Catch Urine Culture - Preliminary Presumptive E. coli GPC Poss Enterococcus sp 06/25/23 07:06 Blood Culture (Wb) - Port Blood Culture - Preliminary GNR lactose supervisor cell maintenance 06/25/23 06:35 Blood Culture (Wb) - Port Blood Culture - Preliminary GNR lactose supervisor cell maintenance 06/25/23 13:05 Urine, Clean Catch Legionella Antigen - Final 06/25/23 13:05 Urine, Clean Catch Streptococcus pneumoniae Antigen (M - Final ABG Data ABG results: ABG 06/25/23 13:30 Specimen Type ART Sample Site L Radial pH 7.36 Bicarbonate Actual 26.6 H Total CO2 28 Base Excess 1 O2 Saturation 97 O2 % 50.0 ABG pCO2 47.2 H ABG pO2 94 Manuel Test Positive Respiration Rate 12 O2 Delivery Device BiPAP Vent Mode ST POC PEEP 10 Imaging Radiology Impression Chest X-Ray 06/25/23 17:49 IMPRESSION: Lower lung scarring or atelectasis. Electronically Signed: Luis Miguel Armendariz MD at 18:11 EDT , Charges/Coding Visit Charges Inpatient E&M: 03048 Init Hosp L3
[2023-06-26] MEDS: Midodrine HCl 5 MG Tablet 10 MG PO ×2 (14:39→19:02)
[2023-06-26] MEDS: Acetaminophen 325 MG Tablet 650 MG PO (14:41)
--- NOTE | 2023-06-26 15:32 | CASEMGMT ---
BRETT went to patient's room and patient's daughter Neema was present. Neema said she is doing better and thanked BRETT for checking in with her. Shana SAL
[2023-06-26] MEDS: LORazepam 0.5 MG Tablet PO (20:45)
[2023-06-26] MEDS: MELATONIN 3 MG TABLET PO (20:45)
[2023-06-26] MEDS: Atorvastatin Calcium 10 MG Tablet PO (20:47)
[2023-06-26] MEDS: Lactobacillis Acidophilus 1 CAP PO (20:47)
[2023-06-26] MEDS: Senna/Docusate Sodium 1 Tablet 2 TABLET PO (20:47)
[2023-06-27] VITALS (37 sets, daily range): BP systolic 114–147; BP diastolic 50–107; PULSE 65–103; RESP 12–33; TEMP 36.4–37.1; O2SAT 79–100; BMI 54.5
[2023-06-27 04:37] LABS: Absolute Lymphocyte Count 0.39 X10^3/uL (0.83-4.51); Absolute Neutrophil Count 11.6 X10^3/uL (2.0-7.7); Basophil# 0.06 X10^3/uL; Basophil% 0.5 % (0-1); Eosinophil# 0.08 X10^3/uL; Eosinophils% 0.6 % (0-5); Hematocrit 30.6 % (37-47); Hemoglobin 9.4 g/dL (12.0-15.0); Lymphocyte # 0.39 X10^3/ul (0.83-4.51); Lymphocyte % 2.9 % (19-41); Mean Corp Hgb Conc 30.7 g/dL (32-36); Mean Corpuscular Hgb 30.1 pg (27.0-32.0); Mean Corpuscular Volume 98.1 fL (81-99); Mean Platelet Vol. 11.6 fl (6.2-12.0); Monocyte# 1.04 X10^3/uL; Monocyte% 7.8 % (0-10); NRBC Flagged by Analyzer 0 % (0-5); Neutrophil # 11.56 X10^3/uL (2.7-7.7); Neutrophil % 86.8 % (47-70); POSITIVE DIFFERENTIAL YES; Platelet Count 102 K/mm3 (150-450); RBC Distribution Width CV 14.4 % (11.6-14.6); RBC Distribution Width SD 52.2 fl (35.1-43.9); Red Blood Count 3.12 M/mm3 (4.2-5.4); White Blood Count 13.3 K/mm3 (4.4-11.0)
[2023-06-27 04:59] LABS: ALB/GLOB Ratio 0.6 RATIO (0.9-2.4); AST(SGOT) 23 U/L (15-37); Alanine Aminotransfer ALT/SGPT 22 U/L (13-56); Alkaline Phosphatase 57 U/L (45-117); Anion Gap 5 (5-15); BUN 48 mg/dL (7-18); BUN/Creat Ratio 15.4 RATIO (10-20); Chloride 116 mmol/L (98-107); Creatinine, Serum 3.11 mg/dL (0.55-1.02); EST Glomerular Filtration Rate 15 mL/min (>60); Est Glom Filt Rate - Afr Amer 19 mL/min (>60); Estimated Creatinine Clearance 23.53 ml/min; Globulin 3.1 g/dL (2.2-4.2); Glucose 117 mg/dL (74-106); Potassium 3.8 mmol/L (3.5-5.1); Protein, Total 5.1 g/dL (6.4-8.2); Sodium Level 144 mmol/L (136-145)
[2023-06-27] MEDS: 0.9% Normal Saline (1000mL) 1,000 ML 100 ML IV ×2 (05:49→18:43)
[2023-06-27] MEDS: Nystatin Powder 15gm Bottle 1 APPLIC TOPICAL ×3 (05:49→21:39)
--- NOTE | 2023-06-27 07:16 | PN.CC_ITS ---
Assessment & Plan Assessment/Plan (1) Sepsis: PLAN: Plan RECOMMENDATIONS: 1. Continue empiric antibiotics. ID consultation is pending. 2. Continue BiPAP therapy with naps and nightly. 3. Continue appropriate DVT prophylaxis. 4. Encourage incentive spirometer use and mobilize patient as tolerated. 5. Obtain follow-up chest x-ray this morning. IMPRESSIONS: 1. Gram-negative sepsis The patient again appears to have gram-negative bacteremia a presumptive urinary source. Cultures are currently pending. Low suspicion for underlying pneumonia. Although the patient was initially hypotensive, she appears to have responded to IV fluid resuscitation. Nevertheless, if the patient once again becomes hypotensive, recommend initiation of vasopressor support. In the interim, continue antimicrobial therapy and obtain follow-up consultation from infectious diseases. 2. Super morbid obesity/obstructive sleep apnea/hypertension/paroxysmal atrial fibrillation/diabetes mellitus/GERD/depression Complicates care, management, recovery and prognosis. Recommend holding home antihypertensives. Remainder of supportive care as noted above. This note was generated with [employer] dictation software. It may contain incorrect words, spelling, and punctuation that were not noted in checking the note before signing. Subjective Subjective The patient was seen and examined at the bedside this morning. Events from the last 24 hours have been reviewed. The patient is currently afebrile, hemodynamically stable and maintaining appropriate oxygen saturations on BiPAP while sleeping. Although the patient was transferred to the medical intensive care unit today with hypotension, she never required the initiation of vasopressor support. The patient's hypotension was fluid responsive. No overnight issues were identified by the nursing staff. Creatinine has improved to 3.1 this morning. The patient reported feeling short of breath this morning. Objective Data Objective Data The patient's most recent lab work, culture data and imaging studies have all been personally reviewed. Vital Signs: Vital Signs Temp Pulse Resp BP Pulse Ox O2 Del Method O2 Flow Rate 98.7 F 82 27 H 134/69 H 94 Bi-pap 40 06/27/23 05:00 06/27/23 06:20 06/27/23 06:10 06/27/23 06:00 06/27/23 06:20 06/27/23 06:00 06/27/23 06:00 FiO2 40 06/27/23 05:00 Oxygen Flow Rate (L/min) 40 Oxygen Delivery Method Bi-pap Weight: 337 lb 11.971 oz Body Mass Index (BMI) 54.5 Intake & Output: Intake and Output for Last 24 Hours 06/25/23 06/26/23 06/27/23 23:59 23:59 23:59 Intake Total 980 / 980 3761.67 / 4001.67 1165 / 1165 Output Total 350 / 350 300 / 300 40 / 40 Balance 630 / 630 3461.67 / 3701.67 1125 / 1125 Lab / Micro Data Attestation: I reviewed the patient's lab results. 06/27/23 04:23 06/27/23 04:23 Labs: Laboratory Results - last 24 hr 06/26/23 07:10: WBC 13.5 H, RBC 3.27 L, Hgb 9.7 L, Hct 31.9 L, MCV 97.6, MCH 29.7, MCHC 30.4 L, RDW Std Deviation 51.0 H, RDW Coeff of Ruben 14.2, Plt Count 105 L, MPV 12.1 H, Immature Gran % (Auto) 0.400, Neut % (Auto) 85.3 H, Lymph % (Auto) 3.8 L, [place] % (Auto) 9.7, Eos % (Auto) 0.4, Baso % (Auto) 0.4, Absolute Neuts (auto) 11.5 H, Absolute Lymphs (auto) 0.51 L, Nucleated RBC % 0, Sodium 142, Potassium 4.3, Chloride 109 H, Carbon Dioxide 29.0, Anion Gap 4 L, BUN 49 H , Creatinine 3.73 H, Estim Creat Clear Calc 30.85, Est GFR (MDRD) Af Amer 15 L, Est GFR (MDRD) Non-Af 13 L, BUN/Creatinine Ratio 13.1, Glucose 112 H, Calcium 9.1, Phosphorus 4.9, Magnesium 1.9, Total Bilirubin 0.90, AST 25, ALT 21, Alkaline Phosphatase 53, Total Protein 5.6 L, Albumin 2.4 L, Globulin 3.2, Albumin/Globulin Ratio 0.8 L 06/27/23 04:23: WBC 13.3 H, RBC 3.12 L, Hgb 9.4 L, Hct 30.6 L, MCV 98.1, MCH 30.1, MCHC 30.7 L, RDW Std Deviation 52.2 H, RDW Coeff of Ruben 14.4, Plt Count 102 L, MPV 11.6, Immature Gran % (Auto) 1.400 H, Neut % (Auto) 86.8 H, Lymph % (Auto) 2.9 L, [place] % (Auto) 7.8, Eos % (Auto) 0.6, Baso % (Auto) 0.5, Absolute Neuts (auto) 11.6 H, Absolute Lymphs (auto) 0.39 L, Nucleated RBC % 0, Sodium 144, Potassium 3.8, Chloride 116 H, Carbon Dioxide 23.0, Anion Gap 5, BUN 48 H, Creatinine 3.11 H, Estim Creat Clear Calc 23.53, Est GFR (MDRD) Af Amer 19 L, Est GFR (MDRD) Non-Af 15 L, BUN/Creatinine Ratio 15.4, Glucose 117 H, Calcium 8.0 L, Total Bilirubin 0.60, AST 23, ALT 22, Alkaline Phosphatase 57, Total Protein 5.1 L, Albumin 2.0 L, Globulin 3.1, Albumin/Globulin Ratio 0.6 L Micro: Microbiology 06/25/23 13:00 Urine, Clean Catch Urine Culture - Preliminary Presumptive E. coli GPC Poss Enterococcus sp 06/25/23 07:06 Blood Culture (Wb) - Port Blood Culture - Preliminary GNR lactose supervisor small appliance assembly 06/25/23 06:35 Blood Culture (Wb) - Port Blood Culture - Preliminary GNR lactose supervisor small appliance assembly 06/25/23 13:05 Urine, Clean Catch Legionella Antigen - Final 06/25/23 13:05 Urine, Clean Catch Streptococcus pneumoniae Antigen (M - Final 06/25/23 04:04 Mucosa - Nose SARS-CoV-2, Influenza & RSV (PCR) - Final Physical Exam Const alert and no apparent distress Constitutional Narrative: BiPAP mask in place. Super morbidly obese. General Appearance: cooperative HEENT normocephalic and head/scalp atraumatic Eyes PERRL, EOMs intact bilaterally and conjunctivae normal Neck supple General: trachea midline Chest inspection of chest normal Resp Effort and Inspection: tachypneic Auscultation: diminished lung sounds; Negative for rales, rhonchi or wheezes Cardio regular rate and regular rhythm GI normal to inspection, nondistended, normoactive bowel sounds Extremity General Extremity: edema; Negative for clubbing Skin General Skin Exam: erythema Neuro CN's II-XII intact bilaterally, moves all extremities and no focal motor deficits Psych cooperative and affect normal Charges/Coding Visit Charges Inpatient E&M: 67740 Subs Hosp L3
[2023-06-27] MEDS: Albuterol 2.5 MG/3 ML VIAL.NEB. INHALATION ×4 (07:21→20:24)
[2023-06-27] MEDS: Budesonide Respules 0.5 MG/2 ML AMPUL.NEB. INHALATION ×2 (07:21→20:24)
--- NOTE | 2023-06-27 09:10 | RAD_ITS ---
STUDY: X-RAY CHEST REASON FOR EXAM: Female, 77 years old. Dyspnea TECHNIQUE: Single AP portable view of the chest. COMPARISON: Comparison is made with prior study dated June 25, 2023. FINDINGS: EKG electrodes are seen. There is evidence of vascular congestion and CHF with bibasilar atelectasis and blunting of both costophrenic angles. There is mild cardiac enlargement. Normal mediastinum and raghav. Normal visualized pulmonary arteries. There is atherosclerotic calcification of the aortic arch with tortuosity. There are diffuse degenerative changes of the visualized thoracic spine. Prior fusion of the lower thoracic spine. There is degenerative osteoarthritis of the bilateral shoulders. There is no demonstrated abnormality of the visualized soft tissue structures of the upper abdomen. RAD/Chest 1 View (Portable) IMPRESSION: CHF with bibasilar atelectasis and blunting of both costophrenic angles. Electronically Signed: Sunil Corrigan MD at 9:45 EDT ,
[2023-06-27] MEDS: Meropenem 1 GM in 0.9% Normal Saline (100mL MB+) 100 ML IV ×2 (10:11→21:34)
[2023-06-27] MEDS: Pantoprazole Sodium 40 MG Tablet PO (10:14)
[2023-06-27] MEDS: LORazepam 0.5 MG Tablet PO (10:14)
[2023-06-27] MEDS: Folic Acid/Vitamin B Comp W-C 1 Capsule 1 CAP PO (10:14)
[2023-06-27] MEDS: Senna/Docusate Sodium 1 Tablet 2 TABLET PO ×2 (10:15→21:38)
[2023-06-27] MEDS: Lactobacillis Acidophilus 1 CAP PO ×2 (10:15→21:40)
[2023-06-27] MEDS: Midodrine HCl 5 MG Tablet 10 MG PO (10:16)
[2023-06-27] MEDS: Aspirin E.C. 81 MG Tablet PO (10:16)
[2023-06-27] MEDS: Enoxaparin 40 MG/0.4 ML Syringe SC (10:16)
[2023-06-27] MEDS: FLUoxetine 20 MG Capsule PO (10:17)
--- NOTE | 2023-06-27 10:49 | PN.HOSP_ITS ---
Subjective Subjective Doing well, no more episodes of hypotension overnight Objective Data Objective Data Vital Signs: Vital Signs Temp Pulse Resp BP Pulse Ox O2 Del Method O2 Flow Rate 97.6 F L 74 22 H 137/107 H 96 Bi-pap 40 06/27/23 10:24 06/27/23 10:24 06/27/23 10:24 06/27/23 10:24 06/27/23 10:24 06/27/23 10:24 06/27/23 06:00 FiO2 40 06/27/23 08:18 Oxygen Flow Rate (L/min) 40 Oxygen Delivery Method Bi-pap Weight: 337 lb 11.971 oz Body Mass Index (BMI) 54.5 Intake & Output: Intake and Output for Last 24 Hours 06/26/23 06/27/23 06/28/23 03:59 03:59 03:59 Intake Total 1480 / 1480 3501.67 / 3501.67 925 / 925 Output Total 350 / 350 300 / 300 40 / 40 Balance 1130 / 1130 3201.67 / 3201.67 885 / 885 Lab / Micro Data 06/27/23 04:23 06/27/23 04:23 Labs: Laboratory Results - last 24 hr 06/27/23 04:23: WBC 13.3 H, RBC 3.12 L, Hgb 9.4 L, Hct 30.6 L, MCV 98.1, MCH 30.1, MCHC 30.7 L, RDW Std Deviation 52.2 H, RDW Coeff of Ruben 14.4, Plt Count 102 L, MPV 11.6, Immature Gran % (Auto) 1.400 H, Neut % (Auto) 86.8 H, Lymph % (Auto) 2.9 L, [place] % (Auto) 7.8, Eos % (Auto) 0.6, Baso % (Auto) 0.5, Absolute Neuts (auto) 11.6 H, Absolute Lymphs (auto) 0.39 L, Nucleated RBC % 0, Sodium 144, Potassium 3.8, Chloride 116 H, Carbon Dioxide 23.0, Anion Gap 5, BUN 48 H, Creatinine 3.11 H, Estim Creat Clear Calc 23.53, Est GFR (MDRD) Af Amer 19 L, Est GFR (MDRD) Non-Af 15 L, BUN/Creatinine Ratio 15.4, Glucose 117 H, Calcium 8.0 L, Total Bilirubin 0.60, AST 23, ALT 22, Alkaline Phosphatase 57, Total Protein 5.1 L, Albumin 2.0 L, Globulin 3.1, Albumin/Globulin Ratio 0.6 L Micro: Microbiology 06/25/23 07:06 Blood Culture (Wb) - Port Blood Culture - Preliminary ESBL Escherichia coli 06/25/23 06:35 Blood Culture (Wb) - Port Blood Culture - Preliminary ESBL Escherichia coli 06/25/23 13:00 Urine, Clean Catch Urine Culture - Preliminary ESBL Escherichia coli Enterococcus faecalis 06/25/23 13:05 Urine, Clean Catch Legionella Antigen - Final 06/25/23 13:05 Urine, Clean Catch Streptococcus pneumoniae Antigen (M - Fi nal 06/25/23 04:04 Mucosa - Nose SARS-CoV-2, Influenza & RSV (PCR) - Final Radiography Diagnostic Testing: Radiology Impression Chest X-Ray 06/27/23 09:10 IMPRESSION: CHF with bibasilar atelectasis and blunting of both costophrenic angles. Electronically Signed: Sunil Corrigan MD at 9:45 EDT , Physical Exam Narrative General: Alert, Oriented x3, Cooperative, moderate respiratory distress HEENT: Atraumatic, PERRLA, EOMI, Normocephalic Oral: Moist Mucosa Neck: Supple, No JVD Lungs: Diminished, Normal air movement, No rhonchi, No wheeze, No rales, on BiPAP Cardiovascular: Regular rate, Regular Rhythm, Normal S1, Normal S2, No murmurs Abdomen: Soft, Non Tender, Non-Distended, No Hepato-splenomegaly Extremities: No edema, Capillary Refill Less than 3 Seconds Skin: Tinea cruris in pannus Musculoskeletal: No Tenderness to Palpation of Joints or Extremities Neurological: No focal neurological deficits, Motor Exam 5/5 strength throughout, Sensory exam intact to light touch and pain Psych/Mental Status: Anxious Assessment & Plan Assessment/Plan (1) Left lower lobe pneumonia: QUALIFIERS: Pneumonia type: due to unspecified organism Qualified Code(s): J18.9 - Pneumonia, unspecified organism (2) Respiratory insufficiency: (3) ROSELYN (acute kidney injury): (4) Generalized weakness: (5) Ambulatory dysfunction: (6) Morbid obesity with BMI of 50.0-59.9, adult: (7) Adult failure to thrive: PLAN: Plan 1. Sepsis secondary to UTI with gram-negative flora bacteremia/acute hypercapnic respiratory failure/ROSELYN ? 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 Continue with meropenem, awaiting for culture sensitivities and finalization ?Will discontinue the midodrine continue with IV fluids as her renal function is improving ?Renal function peaked at 3.73 2. Essential HTN/HLD/paroxysmal A-fib/chronic diastolic CHF ?Given her sepsis and hypotension, will hold her blood pressure medications ? Will continue to monitor and make adjustments as necessary ? Continue with statin ? Given renal failure and sepsis, will hold Lasix 3. DM2 with neuropathy ? Continue with Accu-Cheks ? Sliding scale insulin ? Will monitor make adjustments as necessary 4. Depression/anxiety ? Stable Continue with her home medications 5. GERD ? Stable ? Continue with PPI DVT: Lovenox Charges/Coding Visit Charges Inpatient E&M: 46241 Subs Hosp L2
--- NOTE | 2023-06-27 14:15 | CHAPLAIN ---
Type of Pastoral Visit _x__ Initial Visit ___ Follow-up Visit ___ On-call Visit ___ General Patient Visit ___ Spiritual Assessment ___ Family Conference ___ Bereavement ___ Rapid Response ___ Code Blue ___ Other (describe below) Pastoral Care Referral From ___ Patient _x__ Family ___ Nurse ___ Physician ___ Dry Talc Racker ___ Big Data [employer] Architect ___ Other (describe below) Sacrament/Intervention _x__ Active listening ___ Anointing ___ Pentecostalism ___ Bereavement ___ Communion ___ Caryn exploration ___ ___ Life review _x__ Prayer ___ Reconciliation ___ Sacrament of Sick _x__ Supportive presence ___ Wedding ___ Other (describe below) Pastoral Comments patient is on bi-pap machine and is sleeping; daughter is with patient in the room; pt does not awaken; conversation with daughter about needs, concerns, feelings, and a word of affirmation for her attention to care of pt; daughter states that only need is for prayers and that is what is given at this time;
--- NOTE | 2023-06-27 14:29 | CASEMGMT ---
STUART BRAVO to pt room regarding DC planning. Pt and pt daughter in room. Both state that they are unaware of the projected DC date as we are waiting on cultures to result. At this time, the pt is refusing HHC. This RN LAWRENCE was told that APS is externally involved with the pt home at this time. Pt is active with OP therapy through [facility]. Pt also has home O2 through [facility]. Pt current order is 2L @ rest and 5L with exertion. Green sheet placed on chart in the case that the pt DC home over the weekend and is requiring more O2 than current Rx states. Pt daughter did bring a portable tank into the room. Pt does not need a new setup. Pt does not refuse SNF at this time. Pt was able to ambulate from the bed to the chair via walker this afternoon. PLAN: Home with OP therapy vs SNF pending pt progression in the hospital.
--- NOTE | 2023-06-27 14:41 | PCM.CONS.GEN ---
Assessment & Plan Assessment/Plan (1) Sepsis: PLAN: due to ESBL ecoli bacteremia from suspected urinary source. Ucx with esbl ecoli and e faecalis. Also covering for pneumonia. Cont meropenem, will check renal u/s. May need urology eval given stones and recurrent bacteremia/uti/pyelo. Will follow, thank you (2) Chronic kidney disease: (3) Left lower lobe pneumonia: QUALIFIERS: Pneumonia type: due to unspecified organism Qualified Code(s): J18.9 - Pneumonia, unspecified organism HPI Consult Data Date of Consult: 06/27/23 HPI Narrative Reason for Consultation: uti HPI Narrative: CLAIRE PIRES, is a 77 F with h/o recurrent uti, admitted a month ago with ESBL ecoli bacteremia associated with stones. Discharged on 7 more days IM erta 05/30/23. Now with 2 days progressive dyspnea, weakness, cough, shakes, abd pain, dysuria. Admitted 06/24, started on meropenem, feeling a little better on NIPPV. Daughter at bedside provided additional history. Full ROS performed and neg except as noted above. [facility] Medical History Abdominal pannus Anxiety and depression Bacteremia due to Escherichia coli Bilateral pulmonary embolism (07/2014) Chronic anemia Chronic obstructive pulmonary disease with hypoxia CKD (chronic kidney disease), stage IV Essential hypertension GERD (gastroesophageal reflux disease) History of venous thromboembolism Morbid obesity Multiple thyroid nodules Open abdominal wall wound ROBBI treated with BiPAP Osteomyelitis of cervical spine Postoperative atrial fibrillation (06/2014) Type 2 diabetes mellitus UTI (urinary tract infection) Home Medications ergocalciferol (vitamin D2) 1,250 mcg (50,000 unit) capsule 50,000 unit PO MAZA SUPPLEMENT 02/25/20 [History Last Taken 04/15/23] fluoxetine 20 mg capsule 20 mg PO DAILY DEPRESSION 02/25/20 [History Last Taken 02/25/20] rosuvastatin 5 mg tablet (Crestor) 5 mg PO QHS cholesterol 01/16/21 [History Last Taken Unknown] pantoprazole 40 mg tablet,delayed release 40 mg PO DAILY reflux 03/12/21 [History Last Taken Unknown] metoprolol tartrate 25 mg tablet 25 mg PO QHS blood pressure 02/17/23 [History Last Taken 04/15/23] amiodarone 200 mg tablet 200 mg PO DAILY heart rate #0 tabs 02/26/23 [Rx Last Taken 04/15/23] albuterol sulfate 90 mcg/actuation breath activated powder inhaler 2 inh inhalation .000 PRN shortness of breath 03/27/23 [History Last Taken 04/16/23 08:22] ammonium lactate 12 % lotion (Skin Treatment) 1 applic topical DAILY PRN dry skin 03/27/23 [History Last Taken Unknown] aspirin 81 mg tablet,delayed release (Ecotrin Low Strength) 81 mg PO DAILY heart health 03/27/23 [History Last Taken 04/15/23] furosemide 40 mg tablet 40 mg PO DAILY diuretic 03/27/23 [History Last Taken 04/15/23] mometasone-formoterol HFA 100 mcg-5 mcg/actuation aerosol inhaler (Dulera) 2 inh inhalation BID breathing 03/27/23 [History Last Taken Unknown] vitamin B complex and vitamin C no.20-folic acid 1 mg capsule (Renal Caps) 1 cap PO DAILY vitamin 03/27/23 [History Last Taken Unknown] L.acidophil,salivari-Bifido bifidum-Strep thermoph 175 mg capsule 1 cap PO BID #0 caps 05/30/23 [Rx Last Taken Unknown] d-mannose 500 mg capsule 2,000 mg (4 x 500 mg) PO DAILY 1 month #120 caps 05/30/23 [Rx Last Taken Unknown] sennosides 8.6 mg-docusate sodium 50 mg tablet (Stool Softener-Stimulant Laxative) 2 tab PO BID PRN constipation 06/25/23 [History Last Taken Unknown] Allergy/AdvReac Type Severity Reaction Status Date / Time Food Allergies: Uncoded Allergy Swelling Verified 06/25/23 03:12 ibuprofen Allergy Shortness Verified 06/25/23 03:12 of breath oxycodone HCl [From Percocet] Allergy dizziness Verified 06/25/23 03:12 procaine [From Novocain] Allergy Other Verified 06/25/23 03:12 Family History Father Diabetes Mother CAD (coronary artery disease) Heart disease Hypertension Myocardial infarction Surgical History History of History of cholecystectomy History of spinal fusion Social History household members: family Smoking Status: Never smoker alcohol intake: never substance use type: does not use Physical Exam Const alert, oriented x3 and no apparent distress General Appearance: lethargic HEENT normocephalic and head/scalp atraumatic Eyes PERRL and EOMs intact bilaterally Resp Auscultation: diminished lung sounds Cardio regular rate and regular rhythm GI soft to palpation, non-tender and non-distended Extremity General Extremity: edema Skin no rashes or lesions noted Neuro CN's II-XII intact bilaterally Lab / Micro Data Attestation: I reviewed the patient's lab results. 06/27/23 04:23 06/27/23 04:23 Labs: Laboratory Results - last 24 hr 06/27/23 04:23: WBC 13.3 H, RBC 3.12 L, Hgb 9.4 L, Hct 30.6 L, MCV 98.1, MCH 30.1, MCHC 30.7 L, RDW Std Deviation 52.2 H, RDW Coeff of Ruben 14.4, Plt Count 102 L, MPV 11.6, Immature Gran % (Auto) 1.400 H, Neut % (Auto) 86.8 H, Lymph % (Auto) 2.9 L, [place] % (Auto) 7.8, Eos % (Auto) 0.6, Baso % (Auto) 0.5, Absolute Neuts (auto) 11.6 H, Absolute Lymphs (auto) 0.39 L, Nucleated RBC % 0, Sodium 144, Potassium 3.8, Chloride 116 H, Carbon Dioxide 23.0, Anion Gap 5, BUN 48 H, Creatinine 3.11 H, Estim Creat Clear Calc 23.53, Est GFR (MDRD) Af Amer 19 L, Est GFR (MDRD) Non-Af 15 L, BUN/Creatinine Ratio 15.4, Glucose 117 H, Calcium 8.0 L, Total Bilirubin 0.60, AST 23, ALT 22, Alkaline Phosphatase 57, Total Protein 5.1 L, Albumin 2.0 L, Globulin 3.1, Albumin/Globulin Ratio 0.6 L Micro: Microbiology 06/25/23 07:06 Blood Culture (Wb) - Port Blood Culture - Preliminary ESBL Escherichia coli 06/25/23 06:35 Blood Culture (Wb) - Port Blood Culture - Preliminary ESBL Escherichia coli 06/25/23 13:00 Urine, Clean Catch Urine Culture - Preliminary ESBL Escherichia coli Enterococcus faecalis Imaging Radiology Impression Chest X-Ray 06/27/23 09:10 IMPRESSION: CHF with bibasilar atelectasis and blunting of both costophrenic angles. Electronically Signed: Sunil Corrigan MD at 9:45 EDT ,
--- NOTE | 2023-06-27 14:49 | US_ITS ---
INDICATION: pyelonephritis EXAMINATION: Ultrasound US Kidney(s) complete (eg, kidneys and bladder) TECHNIQUE: Park scale and color doppler images were obtained of the kidneys. COMPARISON: None. FINDINGS: RIGHT KIDNEY: 12.1 x 6.8 x 5.6 cm. Cortical thickness is 0.9 cm. There is a mildly increased echotexture of the renal parenchyma. There is no hydronephrosis. No shadowing calculus, focal lesion or perinephric collection is demonstrated. There is a 1.2 x 1.0 x 1.0 cm anechoic cyst within the lower pole of the RIGHT kidney. There is a shadowing area in the upper pole RIGHT kidney suspicious of a calcification estimated at 1.7 x 1.1 x 0.8 cm. No evidence of obstructive changes. LEFT KIDNEY: 13.9 x 7.0 x 7.2 cm. Cortical thickness is 1.1 cm. There is a mild caliectasis. No solid or cystic masses noted. No shadowing calculus, focal lesion or perinephric collection is demonstrated. URINARY BLADDER: Not visualized US/Kidney and Bladder IMPRESSION: 1. Small benign Bosniak type I cyst in the RIGHT kidney, findings suspicious of a nonobstructing calcification in the RIGHT kidney. 2. Mildly increased echotexture throughout the RIGHT kidney, sequelae medical renal disease and atrophic changes are consideration. 3. Mild hydronephrosis involving the LEFT kidney. No obstructing calcifications masses or cysts noted. 4. Bladder is not visualized. Electronically Signed: Kermit Krishnan MD at 19:20 EDT ,
--- NOTE | 2023-06-27 15:16 | CASEMGMT ---
BRETT met with patient's daughter, Neema. BRETT checked in with Neema to make sure she is doing okay. Neema stated she is doing better and thanked BRETT for checking in with her. Shana SAL
--- NOTE | 2023-06-27 15:35 | NURSING ---
Report called to nurse Maximiliano DAVIDSON for pt to be tx to PCU.
--- NOTE | 2023-06-27 16:37 | CPS ---
Patient transefered to PCU on 6lpm nasal cannula, placed back on BiPAP after arriving in PCU. Patient tolerated well.
[2023-06-27] MEDS: Enoxaparin 30 MG/0.3 ML Syringe SC (21:38)
[2023-06-27] MEDS: Atorvastatin Calcium 10 MG Tablet PO (21:40)
[2023-06-28] VITALS (27 sets, daily range): BP systolic 91–161; BP diastolic 44–129; PULSE 65–109; RESP 12–28; TEMP 36.5–37.7; O2SAT 89–100; BMI 55.3
[2023-06-28] MEDS: 0.9% Normal Saline (1000mL) 1,000 ML 100 ML IV (04:20)
[2023-06-28] MEDS: Nystatin Powder 15gm Bottle 1 APPLIC TOPICAL ×3 (05:27→21:21)
[2023-06-28 05:29] LABS: Hematocrit 35.9 % (37-47); Hemoglobin 10.7 g/dL (12.0-15.0); Mean Corp Hgb Conc 29.8 g/dL (32-36); Mean Corpuscular Hgb 29.1 pg (27.0-32.0); Mean Corpuscular Volume 97.6 fL (81-99); Mean Platelet Vol. 12.5 fl (6.2-12.0); POSITIVE COUNT YES; POSITIVE DIFFERENTIAL YES; POSITIVE MORPHOLOGY YES; Platelet Count 128 K/mm3 (150-450); RBC Distribution Width CV 14.3 % (11.6-14.6); RBC Distribution Width SD 51.5 fl (35.1-43.9); Red Blood Count 3.68 M/mm3 (4.2-5.4); White Blood Count 16.9 K/mm3 (4.4-11.0)
[2023-06-28 05:48] LABS: Differential Indicated MANUAL DIFF
[2023-06-28 06:14] LABS: Anion Gap 6 (5-15); BUN 59 mg/dL (7-18); BUN/Creat Ratio 17.1 RATIO (10-20); Calcium,Total 9.7 mg/dL (8.5-10.1); Chloride 112 mmol/L (98-107); Creatinine, Serum 3.46 mg/dL (0.55-1.02); EST Glomerular Filtration Rate 14 mL/min (>60); Est Glom Filt Rate - Afr Amer 17 mL/min (>60); Estimated Creatinine Clearance 21.36 ml/min; Glucose 128 mg/dL (74-106); Potassium 4.5 mmol/L (3.5-5.1); Sodium Level 142 mmol/L (136-145)
[2023-06-28] MEDS: Albuterol 2.5 MG/3 ML VIAL.NEB. INHALATION ×3 (07:29→19:33)
[2023-06-28] MEDS: Budesonide Respules 0.5 MG/2 ML AMPUL.NEB. INHALATION ×2 (07:29→19:33)
[2023-06-28 08:39] LABS: Anisocytosis 1+; Basophil 1 % (0-1); Lymphocyte 5 % (19-41); Monocyte 5 % (0-10); Neutrophil-Band 4 % (0-5); Neutrophil-Segmented 85 % (47-70); Total Cells Counted 100 (MANUAL DIFF)
[2023-06-28] MEDS: Meropenem 1 GM in 0.9% Normal Saline (100mL MB+) 100 ML IV ×2 (09:24→21:29)
[2023-06-28] MEDS: Enoxaparin 30 MG/0.3 ML Syringe SC (09:25)
--- NOTE | 2023-06-28 10:06 | CASEMGMT ---
Addendum entered by Lauryn Lamb 06/28/23 14:49: Social Work Pt now in ICU and intubated. SW spoke w/daughter, gave support. SW will continue to follow. LINDA Bender Original Note: Social Work SW spoke w/daughter Neema at the bedside. Pt is asleep and on bipapp at present. SW spoke w/daughter about plans at discharge. SW provided to daughter lists of both penitentiary facilities and rehab facilities via [facility] of facilities in network w/insurance, preferred geographic area, and complete w/quality and resource use data. Daughter states pt went to [facility] earlier this year and did well, if rehab is needed she would want pt to go to rehab at [facility]. SW explained will make referrals when appropriate. SW will continue to follow. LINDA Bender
--- NOTE | 2023-06-28 11:02 | RAD_ITS ---
STUDY: X-RAY CHEST REASON FOR EXAM: Female, 77 years old. Chest pain/pressure TECHNIQUE: Single AP portable view of the chest. COMPARISON: Yesterday FINDINGS: Stable appearance of the EKG leads and right-sided PICC line. Lungs are expanded with progression/worsening of diffuse airspace opacifications in both lung bonner and bilateral pleural effusions. Findings suggest CHF though a diffuse inflammatory process could have a similar appearance. Normal size heart. Normal mediastinum and raghav. Normal visualized pulmonary arteries. Normal visualized aortic arch and descending thoracic aorta. There are diffuse degenerative changes of the visualized thoracic spine. Normal visualized ribs, clavicles, and shoulders. There is no demonstrated abnormality of the visualized soft tissue structures of the upper abdomen. RAD/Chest 1 View (Portable) IMPRESSION: Progression/worsening of diffuse interstitial edema with bilateral pleural effusions since the previous study. Follow-up recommended to assure resolution Electronically Signed: Darrick Townsend MD at 15:20 EDT ,
--- NOTE | 2023-06-28 11:07 | PN.CC_ITS ---
Objective Data Objective Data Vital Signs: Vital Signs Last response Temperature 36.6 C 06/28/23 09:26 Temperature Source Temporal 06/28/23 09:26 Pulse Rate 73 06/28/23 09:26 Pulse Strength Normal (2+) 06/28/23 09:11 Respiratory Rate 18 06/28/23 09:26 Respiratory Effort Normal, Non-Labored 06/28/23 08:35 Respiratory Depth Normal 06/28/23 08:35 Respiratory Pattern Normal 06/28/23 08:35 Blood Pressure 151/76 H 06/28/23 09:26 Blood Pressure Mean 101 06/28/23 09:26 Blood Pressure Source Monitor 06/28/23 09:26 Blood Pressure Position Semi-Fowlers 06/28/23 09:26 Blood Pressure Location Left Forearm 06/28/23 09:26 Pulse Ox 95 06/28/23 09:26 Oxygen Delivery Method Bi-pap 06/28/23 09:26 Oxygen Flow Rate (L/min) 6 06/27/23 14:04 Fraction of Inspired Oxygen (FIO2) 45 06/28/23 09:26 I&O: I&O Last 24 Hours 06/27/23 06/27/23 06/28/23 11:59 23:59 11:59 Intake Total 1285 / 2525 1240 / 2525 1081.67 / 1081.67 Output Total 40 / 140 100 / 140 250 / 250 Balance 1245 / 2385 1140 / 2385 831.67 / 831.67 I&O: Total Stay 06/25/23 03:09 thru 06/28/23 09:54 Intake Total 8348.34 Output Total 1040 Balance 7308.34 Current Meds Ordered / Administered: Current meds ordered / Administered Generic Name Dose Route Start Last Admin Trade Name Freq PRN Reason Stop Dose Admin Acetaminophen 650 mg 06/25/23 08:00 06/26/23 14:41 Acetaminophen 325 Mg Tablet PO 650 mg Q6H PRN PRN Administration Pain 1-10 Or Fever>100.7 Albuterol Sulfate 2.5 mg 06/25/23 08:56 06/27/23 11:16 Albuterol 2.5 Mg/3 Ml Vial.Neb. INHALATION 2.5 mg Q4H PRN Administration shortness of breath Albuterol Sulfate 2.5 mg 06/25/23 09:06/28/23 07:29 Albuterol 2.5 Mg/3 Ml Vial.Neb. INHALATION 2.5 mg Q6HWA.RT JERICA Administration Aspirin 81 mg 06/26/23 08:00 06/28/23 08:31 Aspirin E.C. 81 Mg Tablet PO Not Given DAILYCM JERICA Atorvastatin Calcium 10 mg 06/25/23 22:00 06/27/23 21:40 Atorvastatin Calcium 10 Mg Tablet PO 10 mg QHS JERICA Administration Budesonide 0.5 mg 06/25/23 09:05 06/28/23 07:29 Budesonide Respules 0.5 Mg/2 Ml Ampul.Neb. INHALATION 0.5 mg Q12H.RT JERICA Administration Enoxaparin Sodium 30 mg 06/27/23 22:00 06/28/23 09:25 Enoxaparin 30 Mg/0.3 Ml Syringe SC 30 mg BID JERICA Administration Ergocalciferol 1.25 mg 06/29/23 10:00 Ergocalciferol 1.25 Mg (50, 000 Unit) Capsule PO MAZA JERICA Fluoxetine HCl 20 mg 06/25/23 10:00 06/28/23 08:33 Fluoxetine 20 Mg Capsule PO Not Given DAILY JERICA Meropenem 1 gm/ Sodium 120 mls @ 240 mls/hr 06/25/23 09:00 06/28/23 09:54 Chloride IV Infused Q12 JERICA Infusion Sodium Chloride 1,000 mls @ 100 mls/hr 06/26/23 08:40 06/28/23 04:20 IV 100 mls/hr .Q10H JERICA Administration Norepinephrine Bitartrate 8 mg 250 mls @ 9.375 mls/hr 06/26/23 12:09 06/27/23 13:37 / Sodium Chloride CONT INF Not Given .[id number] JERICA Protocol 5 MCG/MIN Lactic Acid 1 applic 06/25/23 08:00 Ammonium Lactate 225 Gm Bottle TOPICAL DAILY PRN dry skin Protocol Lorazepam 0.5 mg 06/26/23 15:00 06/27/23 10:14 Lorazepam 0.5 Mg Tablet PO 0.5 mg Q12H PRN PRN Administration ANXIETY/INSOMNIA Melatonin 3 mg 06/25/23 08:00 06/26/23 20:45 Melatonin 3 Mg Tablet PO 3 mg QHS PRN PRN Administration INSOMNIA Multivit/Ca Carb/B Cmplx/FA/Prenat 1 cap 06/25/23 10:00 06/28/23 08:33 Folic Acid/Vitamin B Comp W-C 1 Capsule PO Not Given DAILY [facility] Nystatin 1 applic 06/25/23 07:20 06/28/23 05:27 Nystatin Powder 15gm Bottle TOPICAL 1 applic TID [facility] Administration Protocol Ondansetron HCl 4 mg 06/25/23 08:00 06/25/23 17:42 Ondansetron 4 Mg/2 Ml Vial IV 4 mg Q8H PRN PRN Administration NAUSEA/VOMITING Pantoprazole Sodium 40 mg 06/25/23 10:00 06/28/23 08:33 Pantoprazole Sodium 40 Mg Tablet PO Not Given DAILY [facility] Senna/Docusate Sodium 2 tablet 06/25/23 10:00 06/28/23 08:34 Senna/Docusate Sodium 1 Tablet PO Not Given BID [facility] Sodium Chloride 10 - 40 ml 06/25/23 08:32 06/26/23 08:43 0.9% Saline Lock 10 Ml Syringe IV 10 ml UD PRN Administration SALINE FLUSH Lab / Micro Data 06/28/23 05:23 06/28/23 05:23 Labs: Laboratory Results - last 24 hr 06/28/23 05:23: WBC 16.9 H, RBC 3.68 L, Hgb 10.7 L, Hct 35.9 L, MCV 97.6, MCH 29.1, MCHC 29.8 L, RDW Std Deviation 51.5 H, RDW Coeff of Ruben 14.3, Plt Count 128 L, MPV 12.5 H, Neut % (Auto) Not Reportable, Total Counted 100, Neutrophils % (Manual) 85 H, Band Neutrophils % 4, Lymphocytes % (Manual) 5 L, Monocytes % (Manual) 5, Basophils % (Manual) 1, Anisocytosis 1+, Sodium 142, Potassium 4.5, Chloride 112 H, Carbon Dioxide 24.0, Anion Gap 6, BUN 59 H, Creatinine 3.46 H, Estim Creat Clear Calc 21.36, Est GFR (MDRD) Af Amer 17 L, Est GFR (MDRD) Non-Af 14 L, BUN/Creatinine Ratio 17.1, Glucose 128 H, Calcium 9.7 Micro: Microbiology 06/25/23 06:35 Blood Culture (Wb) - Port Blood Culture - Final ESBL Escherichia coli 06/25/23 07:06 Blood Culture (Wb) - Port Blood Culture - Final ESBL Escherichia coli 06/25/23 13:00 Urine, Clean Catch Urine Culture - Final ESBL Escherichia coli Enterococcus faecalis Imaging Radiology Impression Renal Ultrasound 06/27/23 14:49 IMPRESSION: 1. Small benign Bosniak type I cyst in the RIGHT kidney, findings suspicious of a nonobstructing calcification in the RIGHT kidney. 2. Mildly increased echotexture throughout the RIGHT kidney, sequelae medical renal disease and atrophic changes are consideration. 3. Mild hydronephrosis involving the LEFT kidney. No obstructing calcifications masses or cysts noted. 4. Bladder is not visualized. Electronically Signed: Kermit Krishnan MD at 19:20 EDT , Assessment and Plan . Assessment and plan: Critical Care Time: The entirety of this encounter was done via Telemedicine Subjective Subjective Telemedicine Pulmonary/ICU Progress Note Brief summary: 77Y F admitted for sepsis and UTI. Sub: Worsening resp status overnight with inability to tolerate even brief time off NIV and with increased O2 req. Also noted to be more lethargic this AM. NS @ 100 PE: General: super morbidly obese acute on chronically ill female, +NIV HEENT: anicteric Sclera, nl nose; supple neck, no masses Cardiovascular: S1/S2; No rubs, gallops; no displaced PM Respiratory: diminished; no crackles, wheezes, or rhonchi Abdominal: increased abd distention, Non-tender; hypoBS x 4; No Hepatosp lenomegaly Extremities: Warm, well perfused; No clubbing, cyanosis; capillary refill < 2 sec Skin: intact, no rashes Neurological: lethargic/fatigued but awakens easily, no gross deficits appreciated A/P: #Acute respiratory failure #Sepsis #Bacteremia #Recurrent UTI #ROSELYN on CKD #Acute toxic/metabolic encephalopathy #Super morbid obesity #CHF #ROBBI on home bilevel PAP with 2L O2 -Cont NIV/AVAPS, titrate FiO2 to keep sats ~90-92%; unable to tolerate time off NIV at this time -Get CXR/ABG now -Hemodynamics are much improved from sepsis stand point (pt actually hypertensi ve now); stop IVF, give Lasix given high likelihood of pulmonary edema causing acute decompensation, less likely PNA -Cont Abx per ID, F/U Cx & additional diagnostic workup -Cont strict I/Os, may need nephro consult if worsening renal function in the setting of above PO diet as tolerated by resp status LMWH --> switch to heparin Guarded prognosis Marcello Marcelo MD CCT: 50 min Entirety of encounter done via telemedicine. RECOMMENDATIONS: 1. Continue empiric antibiotics. ID consultation is pending. 2. Continue BiPAP therapy with naps and nightly. 3. Continue appropriate DVT prophylaxis. 4. Encourage incentive spirometer use and mobilize patient as tolerated. 5. Obtain follow-up chest x-ray this morning.
[2023-06-28 11:48] LABS: Base Excess -5 mmol/L (-2 to +2); Bicarbonate 23.4 mmol/L (22-26); Blood Gas Specimen Type ART; Mode avaps; O2 Delivery Device BiPAP; PO2 84 mmHG (75-100); RR 12; SITE R Radial; SO2 92 % (95-99); Time Given 11:45:41; Total Carbon Dioxide 25 mmol/L; pH 7.16 (7.35-7.45)
--- NOTE | 2023-06-28 12:06 | PN.HOSP_ITS ---
Subjective Subjective Somewhat increased work of breathing this morning. Pulmonology obtained an ABG that demonstrates respiratory acidosis with a pCO2 of 66 while on the BiPAP Objective Data Objective Data Vital Signs: Vital Signs Temp Pulse Resp BP Pulse Ox O2 Del Method O2 Flow Rate 97.8 F 73 26 H 151/76 H 94 Bi-pap 6 06/28/23 09:26 06/28/23 10:50 06/28/23 10:50 06/28/23 09:26 06/28/23 10:50 06/28/23 09:26 06/27/23 14:04 FiO2 45 06/28/23 10:50 Oxygen Flow Rate (L/min) 6 Oxygen Delivery Method Bi-pap Weight: 343 lb 1.686 oz Body Mass Index (BMI) 55.3 Intake & Output: Intake and Output for Last 24 Hours 06/27/23 06/28/23 06/29/23 03:59 03:59 03:59 Intake Total 3501.67 / 3501.67 2285 / 2285 1825.59 / 1825.59 Output Total 300 / 300 140 / 140 250 / 250 Balance 3201.67 / 3201.67 2145 / 2145 1575.59 / 1575.59 Lab / Micro Data 06/28/23 05:23 06/28/23 05:23 Labs: Laboratory Results - last 24 hr 06/28/23 05:23: WBC 16.9 H, RBC 3.68 L, Hgb 10.7 L, Hct 35.9 L, MCV 97.6, MCH 29.1, MCHC 29.8 L, RDW Std Deviation 51.5 H, RDW Coeff of Ruben 14.3, Plt Count 128 L, MPV 12.5 H, Neut % (Auto) Not Reportable, Total Counted 100, Neutrophils % (Manual) 85 H, Band Neutrophils % 4, Lymphocytes % (Manual) 5 L, Monocytes % (Manual) 5, Basophils % (Manual) 1, Anisocytosis 1+, Sodium 142, Potassium 4.5, Chloride 112 H, Carbon Dioxide 24.0, Anion Gap 6, BUN 59 H, Creatinine 3.46 H, Estim Creat Clear Calc 21.36, Est GFR (MDRD) Af Amer 17 L, Est GFR (MDRD) Non-Af 14 L, BUN/Creatinine Ratio 17.1, Glucose 128 H, Calcium 9.7 Micro: Microbiology 06/25/23 06:35 Blood Culture (Wb) - Port Blood Culture - Final ESBL Escherichia coli 06/25/23 07:06 Blood Culture (Wb) - Port Blood Culture - Final ESBL Escherichia coli 06/25/23 13:00 Urine, Clean Catch Urine Culture - Final ESBL Escherichia coli Enterococcus faecalis 06/25/23 13:05 Urine, Clean Catch Legionella Antigen - Final 06/25/23 13:05 Urine, Clean Catch Streptococcus pneumoniae Antigen (M - Fi nal 06/25/23 04:04 Mucosa - Nose SARS-CoV-2, Influenza & RSV (PCR) - Final ABG Data ABG results: ABG 06/28/23 11:42 Specimen Type ART Sample Site R Radial pH 7.16 L* Bicarbonate Actual 23.4 Total CO2 25 Base Excess -5 L O2 Saturation 92 L O2 % 45.0 ABG pCO2 66.0 H ABG pO2 84 Respiration Rate 12 O2 Delivery Device BiPAP Vent Mode avaps Tidal Volume 400.0 Crit Call To/Read Back Yes Blood Gas Notified Whom telemeed dr Blood Gas Notified Time 11:45:41 Radiography Diagnostic Testing: Radiology Impression Renal Ultrasound 06/27/23 14:49 IMPRESSION: 1. Small benign Bosniak type I cyst in the RIGHT kidney, findings suspicious of a nonobstructing calcification in the RIGHT kidney. 2. Mildly increased echotexture throughout the RIGHT kidney, sequelae medical renal disease and atrophic changes are consideration. 3. Mild hydronephrosis involving the LEFT kidney. No obstructing calcifications masses or cysts noted. 4. Bladder is not visualized. Electronically Signed: Kermit Krishnan MD at 19:20 EDT , Physical Exam Narrative General: Alert, Oriented x3, Cooperative, moderate respiratory distress HEENT: Atraumatic, PERRLA, EOMI, Normocephalic Oral: Moist Mucosa Neck: Supple, No JVD Lungs: Diminished, Normal air movement, No rhonchi, No wheeze, No rales, on BiPAP Cardiovascular: Regular rate, Regular Rhythm, Normal S1, Normal S2, No murmurs Abdomen: Soft, Non Tender, Non-Distended, No Hepato-splenomegaly Extremities: No edema, Capillary Refill Less than 3 Seconds Skin: Tinea cruris in pannus Musculoskeletal: No Tenderness to Palpation of Joints or Extremities Neurological: No focal neurological deficits, Motor Exam 5/5 strength thro ughout, Sensory exam intact to light touch and pain Psych/Mental Status: Anxious Assessment & Plan Assessment/Plan (1) Left lower lobe pneumonia: QUALIFIERS: Pneumonia type: due to unspecified organism Qualified Code(s): J18.9 - Pneumonia, unspecified organism (2) Respiratory insufficiency: (3) ROSELYN (acute kidney injury): (4) Generalized weakness: (5) Ambulatory dysfunction: (6) Morbid obesity with BMI of 50.0-59.9, adult: (7) Adult failure to thrive: PLAN: Plan 1. Sepsis secondary to UTI with bacteremia due to ESBL E. coli in both the urine and blood and Enterococcus faecalis in the urine/acute hypercapnic respiratory failure/ROSELYN ? 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 Continue with meropenem ? Appreciate pulmonology's assistance, ABG was obtained given her increasing respiratory distress while on BiPAP and she had a pH of 7.16 with pCO2 of 66 and a bicarb of 23.4. ?Renal function peaked at 3.73, and improved to 3.11 yesterday so fluids were continued and then this morning her creatinine was 3.46 ? I had a 20-minute conversation on advance care planning with the patient and the daughter about the need for possible intubation as well as other options including hospice ultimately they elected to proceed with intubation and the patient was able to sign consent. ? Was given a x 1 dose of Lasix per pulmonology as there was a likely component of volume overload 2. Essential HTN/HLD/paroxysmal A-fib/chronic diastolic CHF ?Given her sepsis and hypotension, will hold her blood pressure medications ? Will continue to monitor and make adjustments as necessary ? Continue with statin ? She was given a dose of Lasix by pulmonology 3. DM2 with neuropathy ? Continue with Accu-Cheks ? Sliding scale insulin ? Will monitor make adjustments as necessary 4. Depression/anxiety ? Stable Continue with her home medications 5. GERD ? Stable ? Continue with PPI DVT: Lovenox Charges/Coding Visit Charges Inpatient E&M: 42180 Subs Hosp L2 Procedures Hospitalists Procedures: 88218 Advncd Care Plan 30 Min
[2023-06-28] MEDS: Furosemide 100 MG/10 ML Vial 60 MG IV (12:08)
--- NOTE | 2023-06-28 12:17 | CPS ---
Dr Barnes (telemed Dr) called and message left for him to call back to respiratory per his request for a phone call us. Did speak with him a few minutes ago and pt will be moved to icu to be intubated.
--- NOTE | 2023-06-28 13:00 | NURSING ---
Report given to Onelia curriculum facilitator at this time. Pt transported to icu with respiratory and mihaela pcu devulcanizer charger assistance.
--- NOTE | 2023-06-28 13:25 | RAD_ITS ---
STUDY: X-RAY CHEST REASON FOR EXAM: Female, 77 years old. Respiratory failure TECHNIQUE: Single AP portable view of the chest. COMPARISON: Earlier today FINDINGS: Since the previous study, the patient has been intubated, tip of the ET tube is 2 cm above the isaak, NG tube tip in the body of the stomach. Right-sided PICC line tip in the distal SVC. EKG leads overlie the chest Lungs are expanded with persistent diffuse opacifications of both lung bonner with bilateral pleural effusions. Findings suggest CHF but a diffuse inflammatory process could have a similar appearance. Normal size heart. Normal mediastinum and raghav. Normal visualized pulmonary arteries. Normal visualized aortic arch and descending thoracic aorta. There are diffuse degenerative changes of the visualized thoracic spine. Surgical hardware throughout the lower thoracic and lumbar spine free of complication There is no demonstrated abnormality of the visualized soft tissue structures of the upper abdomen. RAD/Chest 1 View (Portable) IMPRESSION: Since the previous study, the patient has been intubated and an NG tube placed, tip is in the proximal stomach. Stable appearance of the right-sided PICC line Persistent diffuse airspace opacifications in both lung bonner with bilateral pleural effusions. Findings suggest CHF or diffuse inflammatory process. Follow-up recommended to ensure resolution Electronically Signed: Darrick Townsend MD at 14:31 EDT ,
[2023-06-28] MEDS: Propofol 10MG/Ml 1,000 MG/100 ML Bottle 9.3 MG CONT INF (13:26)
[2023-06-28] MEDS: fentaNYL drip 100 ML 2.5 MCG CONT INF (13:27)
--- NOTE | 2023-06-28 13:40 | RAD_ITS ---
STUDY: X-RAY - ABDOMEN/PELVIS REASON FOR EXAM: Female, 77 years old. NG PLACEMENT TECHNIQUE: Two AP supine views of the abdomen and pelvis. COMPARISON: None. FINDINGS: Lung bonner show diffuse interstitial edema and bilateral pleural effusions. Patient is intubated, tip of the ET tube is 2 cm above the isaak, NG tube tip is in the mid stomach. Right-sided PICC line tip in the distal SVC There is an unremarkable bowel gas pattern. There is no demonstrated free abdominal air. The visualized liver, spleen and kidneys are grossly normal in size and morphology. Normal soft tissue structures. Degenerative changes noted throughout the lumbar spine and pelvis, surgical hardware in the lower thoracic and lumbar spine free of complication RAD/Abdomen Single View IMPRESSION: NG tube tip in the body the stomach. Satisfactory appearance to the ET tube, and right-sided PICC line Diffuse interstitial edema with bilateral pleural effusions follow-up recommended to ensure resolution Surgical hardware in the spine free of complication Electronically Signed: Darrick Townsend MD at 14:29 EDT ,
--- NOTE | 2023-06-28 14:06 | PCM.PN.BLA ---
Progress Note Intubation Indication: Acute hypercapnic respiratory failure Consent was obtained from: Patient The patient was placed in the appropriate sniffing position. Preoxygenated sedation via BiPAP was provided for a minimum of 3 minutes. The patient had continuous cardiac as well as pulse oximetry monitoring during the procedure. Procedure sedation was provided by the administration of propofol and fentanyl. Direct laryngoscopy was then performed using a glide scope. A 7.5 mm endotracheal tube was visualized advancing between the cords to the level of 26 cm at the lip. The stylette was then removed and discarded. Tube placement was confirmed by fogging in the tube along with equal and bilateral breath sounds. Colorimetric change was visualized on the CO2 meter. The cuff was then inflated and the tube secured using a commercially available device. A good pulse oximetry waveform was seen on the monitor throughout the procedure. A portable chest x-ray has been ordered to confirm appropriate placement. The patient tolerated the procedure well. Procedures Pulmonary CF Procedures [id number]-32xxx: 82251 Insert emergency airway
[2023-06-28 14:57] LABS: CPK Total, Creatine Kinase 217 U/L (26-192); Triglycerides 119 mg/dL
[2023-06-28 15:54] LABS: Allen Test Positive; Base Excess -4 mmol/L (-2 to +2); Bicarbonate 21.6 mmol/L (22-26); Blood Gas Specimen Type ART; Mode AC; O2 Delivery Device Adult Vent; PEEP 8; PO2 72 mmHG (75-100); RR 25; SITE R Radial; SO2 94 % (95-99); Total Carbon Dioxide 23 mmol/L; pCO2 39.5 mmHg (35-45); pH 7.35 (7.35-7.45)
[2023-06-28] MEDS: Heparin Injection (Vial) 5,000 UNIT/ML VIAL 5000 UNIT SC ×2 (16:05→21:21)
[2023-06-28] MEDS: Propofol 10MG/Ml 1,000 MG/100 ML Bottle 18.7 MG CONT INF ×2 (17:05→22:49)
[2023-06-28] MEDS: 0.9% Saline Lock 10 ML Syringe IV ×2 (17:54→21:26)
[2023-06-28] MEDS: fentaNYL drip 100 ML 12.5 MCG CONT INF (18:37)
[2023-06-28] MEDS: Senna/Docusate Sodium 1 Tablet 2 TABLET PO (21:21)
[2023-06-28] MEDS: Lactobacillis Acidophilus 1 CAP PO (21:21)
[2023-06-28] MEDS: Chlorhexidine 15 ML PO (21:21)
[2023-06-28] MEDS: Atorvastatin Calcium 10 MG Tablet PO (21:26)
[2023-06-28 22:08] LABS: Bedside Glucose 88 mg/dL (74-106)
[2023-06-28 22:33] LABS: Basophil% 16.9 % (0-1); Promyelocyte 16.9 % (0-0)
[2023-06-28 22:36] LABS: Absolute Lymphocyte Count 0.85 X10^3/uL (0.83-4.51); Absolute Neutrophil Count 14.7 X10^3/uL (2.0-7.7)
--- NOTE | 2023-06-28 23:24 | NURSING ---
[facility] called with bed assignment G50 bed 5. CC arranged transport and they will be her in approx. 1 hr. daughter omi called to get the ok for transfer. dr lopez notified that signature is needed on form.
--- NOTE | 2023-06-28 23:51 | NURSING ---
called report to thi fallon [phone], chart copied
[2023-06-29] VITALS: BP 152/55; PULSE 71; RESP 25; TEMP 37.2; O2SAT 92
[2023-06-29 01:00] VITALS: BP 145/78; PULSE 79; RESP 25; O2SAT 97
[2023-06-29] MEDS: fentaNYL drip 100 ML 12.5 MCG CONT INF (01:06)
--- NOTE | 2023-06-29 16:17 | PCM.DC.SUM ---
Providers Date of Admission: 06/25/23 Primary Care Physician: Dr. Sandrine Mireles MD Consultations 06/25/23 08:00 Consult: Onc/Wound/building architect Routine Comment: Reason for Consult:: Chronic intertrigo with abdominal wound. 06/26/23 12:09 Consult: Hearing Screener / Pulmonary Medicine Routine Consulting Provider: Intensivists/Pulmonary Med Reason for Consult: Septic shock EMERGENT Consult: No MD Notified: Yes Date Notified: 06/26/23 Time Notified: 11:34 Method of Notification: Verbal 06/26/23 12:18 Consult: Infectious Disease Routine Consulting Provider: Hari Ma Reason for Consult: Gram negative sepsis EMERGENT Consult: No Notified: Yes Date Notified: 06/26/23 Time Notified: 12:43 Method of Notification: Text 06/27/23 10:51 Consult: Infectious Disease Routine Consulting Provider: Hari Ma Reason for Consult: ESBL bactermia and UTI EMERGENT Consult: No MD Notified: Yes Date Notified: 06/27/23 Time Notified: 11:09 Method of Notification: Text Reason For Visit: LEFT LOWER LOBE PNEUMONIA WITH [id number]-[id number] Diagnosis Discharge Diagnosis (1) Left lower lobe pneumonia: Status: Acute Code(s): J18.9 - Pneumonia, unspecified organism Qualifiers: Pneumonia type: due to unspecified organism Qualified Code(s): J18.9 - Pneumonia, unspecified organism (2) Respiratory insufficiency: Status: Acute Code(s): R06.89 - Other abnormalities of breathing (3) ROSELYN (acute kidney injury): Status: Acute Code(s): N17.9 - Acute kidney failure, unspecified (4) Generalized weakness: Status: Acute Code(s): R53.1 - Weakness (5) Ambulatory dysfunction: Status: Acute Code(s): R26.2 - Difficulty in walking, not elsewhere classified (6) Morbid obesity with BMI of 50.0-59.9, adult: Status: Acute Code(s): E66.01 - Morbid (severe) obesity due to excess calories; Z68.43 - Body mass index [BMI] 50.0-59.9, adult (7) Adult failure to thrive: Status: Acute Code(s): R62.7 - Adult failure to thrive Medications at Discharge Home Medications ergocalciferol (vitamin D2) 1,250 mcg (50,000 unit) capsule 50,000 unit PO MAZA SUPPLEMENT 02/25/20 fluoxetine 20 mg capsule 20 mg PO DAILY DEPRESSION 02/25/20 rosuvastatin 5 mg tablet (Crestor) 5 mg PO QHS cholesterol 01/16/21 pantoprazole 40 mg tablet,delayed release 40 mg PO DAILY reflux 03/12/21 metoprolol tartrate 25 mg tablet 25 mg PO QHS blood pressure 02/17/23 amiodarone 200 mg tablet 200 mg PO DAILY heart rate #0 tabs 02/26/23 albuterol sulfate 90 mcg/actuation breath activated powder inhaler 2 inh inhalation .000 PRN shortness of breath 03/27/23 ammonium lactate 12 % lotion (Skin Treatment) 1 applic topical DAILY PRN dry skin 03/27/23 aspirin 81 mg tablet,delayed release (Ecotrin Low Strength) 81 mg PO DAILY heart health 03/27/23 furosemide 40 mg tablet 40 mg PO DAILY diuretic 03/27/23 mometasone-formoterol HFA 100 mcg-5 mcg/actuation aerosol inhaler (Dulera) 2 inh inhalation BID breathing 03/27/23 vitamin B complex and vitamin C no.20-folic acid 1 mg capsule (Renal Caps) 1 cap PO DAILY vitamin 03/27/23 L.acidophil,salivari-Bifido bifidum-Strep thermoph 175 mg capsule 1 cap PO BID #0 caps 05/30/23 d-mannose 500 mg capsule 2,000 mg (4 x 500 mg) PO DAILY 1 month #120 caps 05/30/23 sennosides 8.6 mg-docusate sodium 50 mg tablet (Stool Softener-Stimulant Laxative) 2 tab PO BID PRN constipation 06/25/23 Hospital Course Operations None Procedures Intubation Summary of Care Provided Minutes Spent on Discharge: 0 Hospital Course: Per HPI: Hospital Course: 1. Sepsis secondary to UTI with bacteremia due to ESBL E. coli in both the urine and blood and Enterococcus faecalis in the urine/acute hypercapnic respiratory failure/ROSELYN ? 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 Continue with meropenem ? Appreciate pulmonology's assistance, ABG was obtained given her increasing respiratory distress while on BiPAP and she had a pH of 7.16 with pCO2 of 66 and a bicarb of 23.4. ?Renal function peaked at 3.73, and improved to 3.11 yesterday so fluids were continued and then this morning her creatinine was 3.46 ? I had a 20-minute conversation on advance care planning with the patient and the daughter about the need for possible intubation as well as other options including hospice ultimately they elected to proceed with intubation and the patient was able to sign consent. ? Was given a x 1 dose of Lasix per pulmonology as there was a likely component of volume overload 06/29/2023: She was intubated on 06/28/2023 and discussion with family including the possibility of transfer. They did ultimately request transfer to [facility] so this conversation occurred on 06/28/2023 and she was excepted. It does appear that she was discharged earlier this morning prior to my arrival to the hospital to the [facility]. 2. Essential HTN/HLD/paroxysmal A-fib/chronic diastolic CHF ?Given her sepsis and hypotension, will hold her blood pressure medications ? Will continue to monitor and make adjustments as necessary ? Continue with statin ? She was given a dose of Lasix by pulmonology 3. DM2 with neuropathy ? Continue with Accu-Cheks ? Sliding scale insulin ? Will monitor make adjustments as necessary 4. Depression/anxiety ? Stable Continue with her home medications 5. GERD ? Stable ? Continue with PPI Weight / BMI Weight Weight: 343 lb 1.686 oz Body Mass Index (BMI) 55.3 ABG / Lab / Microbiology Data 06/28/23 05:23 06/28/23 05:23 Laboratory: Laboratory Results - last 24 hr 06/28/23 05:23: Baso % (Auto) 16.9 H, Absolute Neuts (auto) 14.7 H, Absolute Lymphs (auto) 0.85, Promyelocytes % 16.9 H 06/28/23 21:39: POC Glucose 88 Microbiology: Microbiology 06/28/23 13:40 Sputum, Tracheal Aspirate Gram Stain - Final 06/28/23 13:40 Sputum, Tracheal Aspirate Respiratory Culture - Preliminary Culture exhibits no growth. 06/25/23 06:35 Blood Culture (Wb) - Port Blood Culture - Final ESBL Escherichia coli 06/25/23 07:06 Blood Culture (Wb) - Port Blood Culture - Final ESBL Escherichia coli 06/25/23 13:00 Urine, Clean Catch Urine Culture - Final ESBL Escherichia coli Enterococcus faecalis 06/25/23 13:05 Urine, Clean Catch Legionella Antigen - Final 06/25/23 13:05 Urine, Clean Catch Streptococcus pneumoniae Antigen (M - Final 06/25/23 04:04 Mucosa - Nose SARS-CoV-2, Influenza & RSV (PCR) - Final Meaningful Use Info Meaningful Use Meaningful Use Diagnoses (Choose all that apply): None applicable Ischemic Stroke Statin Dosing Therapy Reference: STATIN DOSE THERAPY REFERENCE: * Patients > 75 years receive moderate or high dose statin therapy. * Patients 75 years or YOUNGER should receive HIGH intensity statin dose unless contraindicated. You will be required to document reason for non-treatment if statin daily dose does not meet guidelines. HIGH DOSE STATIN THERAPY DAILY Atorvastatin > than or = to 40 mg Rosuvastatin > than or = to 20 mg Amlodipine + Atorvastatin > than or = to 2.5/40 mg Ezetimibe + Simvastatin 10/80 mg Simvastatin 80mg Discharge Plan Admission Admit Date/Time: 06/25/23 06:44 Attending Provider: Bo Ace Primary Care Provider: Sandrine Mireles Consulting Providers: Zain Alex; Hari Ma; Domingo Lane; Shaun Nascimento; Rufino Lopez; Malik Minaya; Jonel Vera; Kia Cueva; Mejia Espinoza; Niesha Montoya; Justin Bui; Aron Dow; Mickey Molina; Marcello Marcelo; Jas Sorto; Ricci Long Discharge Orders/Prescriptions Prescriptions: No Action pantoprazole 40 mg tablet,delayed release (DR/EC) 40 mg PO DAILY ergocalciferol (vitamin D2) 50,000 UNIT capsule 50,000 unit PO MAZA Patient Comments: take 1 capsule by mouth every week fluoxetine 20 MG capsule 20 mg PO DAILY Patient Comments: depression rosuvastatin [Crestor] 5 mg Tablet 5 mg PO QHS furosemide 40 mg tablet 40 mg PO DAILY aspirin [Ecotrin Low Strength] 81 mg tablet,delayed release (DR/EC) 81 mg PO DAILY Dulera 100-5 mcg/actuation HFA aerosol inhaler 2 inh inhalation BID Renal Caps 1 mg capsule 1 cap PO DAILY albuterol sulfate 90 mcg/actuation aerosol powdr breath activated 2 inh inhalation .000 PRN (Reason: shortness of breath) ammonium lactate [Skin Treatment] 12 % lotion 1 applic topical DAILY PRN (Reason: dry skin) Patient Comments: APPLIES TO LEGS metoprolol tartrate 25 mg tablet 25 mg PO QHS amiodarone 200 mg Tablet 200 mg PO DAILY Qty: 0 0RF sennosides-docusate sodium [Stool Softener-Stimulant Laxat] 8.6-50 mg Tablet 2 tab PO BID PRN (Reason: constipation) Rx Instructions: Available witn-msg-jnnqkzk. L.acidoph,saliva-B.bif-S.therm 175 mg Capsule 1 cap PO BID Qty: 0 0RF Rx Instructions: At least till the patient finishes the antibiotic. Available OTC d-mannose 500 mg capsule 2,000 mg PO DAILY 30 Days Qty: 120 0RF Referrals / Follow Up: Sandrine Mireles MD [Primary Care Provider] - Disposition Disposition (needs filled in before D/C Order can be placed): [facility]
== END 2023-06-29 01:31 | disposition short-term general hospital (02) | DRG 689 ==
LOC: ED 07:02 → PCU 07:09 → ICU 06-26 13:56 → PCU 06-27 16:40 → ICU 06-28 18:32
PROVIDERS: Internal Medicine Pulmonary Disease; Admitting Provider Internal Medicine; Emergency Provider Emergency Medicine; PCP Internal Medicine; Visit Provider Family Medicine
DX: N39.0 Urinary tract infection, site not specified (principal); A41.50 Gram-negative sepsis, unspecified; J96.22 Acute and chronic respiratory failure with hypercapnia; I50.33 Acute on chronic diastolic (congestive) heart failure; G92.8 Other toxic encephalopathy; I13.0 Hypertensive heart and chronic kidney disease with heart failure and stage 1 through stage 4 chronic kidney disease, or unspecified chronic kidney disease; Z68.43 Body mass index [BMI] 50.0-59.9, adult; N18.4 Chronic kidney disease, stage 4 (severe); J96.11 Chronic respiratory failure with hypoxia; N17.9 Acute kidney failure, unspecified; E87.29 Other acidosis; Z16.12 Extended spectrum beta lactamase (ESBL) resistance; E11.22 Type 2 diabetes mellitus with diabetic chronic kidney disease; B95.2 Enterococcus as the cause of diseases classified elsewhere; J44.9 Chronic obstructive pulmonary disease, unspecified; E66.01 Morbid (severe) obesity due to excess calories; I48.0 Paroxysmal atrial fibrillation; E11.40 Type 2 diabetes mellitus with diabetic neuropathy, unspecified; F32.A Depression, unspecified; E78.5 Hyperlipidemia, unspecified; K21.9 Gastro-esophageal reflux disease without esophagitis; F41.9 Anxiety disorder, unspecified; G47.33 Obstructive sleep apnea (adult) (pediatric); R26.2 Difficulty in walking, not elsewhere classified; L30.4 Erythema intertrigo; R62.7 Adult failure to thrive; R53.1 Weakness; Z74.09 Other reduced mobility; Z79.82 Long term (current) use of aspirin; Z87.891 Personal history of nicotine dependence; B96.20 Unspecified Escherichia coli [E. coli] as the cause of diseases classified elsewhere
CPT/HCPCS: 31500; 31720; 36415; 36569; 36600; 71045; 71250; 74018; 76770; 80048; 80053; 81001; 82550; 82803; 82962; 83605; 83735; 83880; 84100; 84478; 85025; 85379; 87040; 87070; 87077; 87086; 87088; 87186; 87205; 87449; 87631; 94002; 94003; 94640; 94762; 97162; 97166; 99252; 99284; J2185; J7030; J7040; P9047; A4216; G0463; J1940; J2405

== ENCOUNTER → 2023-10-29 | Outpatient (CLI) | payer MEDICARE, OTHER, SELFPAY ==
--- NOTE | 2023-10-29 13:03 | US_ITS ---
STUDY: ULTRASOUND TRANSVAGINAL CLINICAL: Female, 77 years old. TRANSVAGINAL ULTRASOUND; history of uterine polyup -- postmenopausal bleeding TECHNIQUE: Transvaginal COMPARISON: None. FINDINGS: Normal uterine size measuring 7.3 cm x 4.9 cm by 3.6 cm in maximal craniocaudal dimension. There are no myometrial masses. Normal endometrial thickness is thickened and measuring 8 mm. There are no endometrial masses, and there is no fluid in the endometrial cavity. Nabothian cyst. The ovaries were not visualized. There is no free fluid in the pelvis. US/Transvaginal Non- IMPRESSION: Endometrial thickening. Electronically Signed: Sunil Corrigan MD at 14:34 EDT ,
== END | disposition home or self-care (01) ==
LOC: US 13:03
PROVIDERS: PCP Internal Medicine; Referring Provider Internal Medicine; Visit Provider Internal Medicine
DX: N95.0 Postmenopausal bleeding (principal)
CPT/HCPCS: 76830

== ENCOUNTER 2023-11-17 13:45 | Outpatient (RCR) | payer MEDICARE, OTHER, SELFPAY ==
[2023-10-27 13:49] VITALS: BP 110/62; PULSE 76; RESP 20; TEMP 36.3
--- NOTE | 2023-10-28 08:40 | WC ---
PHOTO 10/27/23 ABD
--- NOTE | 2023-10-28 09:46 | HP.PCM_ITS ---
History of Present Illness Date of Service: 10/28/23 Chief Complaint: Abdominal wound History of Wound: Nerissa Bradley is a 77-year-old female who presents to the wound healing center today for evaluation management of an abdominal wound. This wound is located in the midline under her pannus. She does have a very large pannus with significant weight. she reports that this wound has been present for approximately 1 month, first came to her attention when she was admitted to the hospital recently. She thinks it is from her wheelchair hitting against the area. At home, she relies on her daughter to assist her with wound care. Since her discharge from the hospital, they have been utilizing Aquacel they were sent home with but she did run out recently. She had been receiving antifungal powder to apply while in the hospital, but does not have this at home. She denies any history of prior wounds in this area. She does have a history of superficial wounds to the bilateral lower extremities which were also noted at the time of her most recent hospitalization early February, but seem to be resolved at this time. She does wear compression stockings. She is trying to do a better job of elevating her legs but does note she cannot lay back too far without having difficulty breathing. She is diabetic but most recent A1c in 11/2022 5.4 and do not see any active medications for diabetes. She does not smoke. She does not take any blood thinners other than aspirin. Current encounter 27 October 2023: Dr. Mireles graciously referred me this very pleasant 77-year-old female for evaluation of a wound beneath her abdominal pannus in the crease. Mrs. Bradley's daughter was present on the phone during our visit we discussed her status. Their main goal from the visit today was to get follow-up for the abdominal wound beneath her pannus. She was admitted to the [facility] for her multiple comorbidities, including treatment of her COPD as well as aortic stenosis, and during this time she was treated for this wound that was developing beneath her pannus. They suggested that she follow- up with the charge master specialist and [facility] near her home. She reports that she has been doing packing with Vashe soaked Kerlix twice daily and has been putting Interdry beneath the pannus to keep the skin from becoming macerated. No recent problems with yeast. [facility] Medical History Abdominal pannus Anxiety and depression Bacteremia due to Escherichia coli Bilateral pulmonary embolism (07/2014) Chronic anemia Chronic obstructive pulmonary disease with hypoxia CKD (chronic kidney disease), stage IV Essential hypertension GERD (gastroesophageal reflux disease) History of venous thromboembolism Morbid obesity Multiple thyroid nodules Open abdominal wall wound ROBBI treated with BiPAP Osteomyelitis of cervical spine Postoperative atrial fibrillation (06/2014) Type 2 diabetes mellitus UTI (urinary tract infection) Home Medications ?Medication ?Instructions ?Recorded ?Last Taken ?Type ergocalciferol (vitamin D2) 1,250 50,000 unit PO MAZA SUPPLEMENT 02/25/20 04/15/23 History mcg (50,000 unit) capsule fluoxetine 20 mg capsule 20 mg PO DAILY DEPRESSION 02/25/20 02/25/20 History rosuvastatin 5 mg tablet (Crestor) 5 mg PO QHS cholesterol 01/16/21 Unknown History pantoprazole 40 mg tablet,delayed 40 mg PO DAILY reflux 03/12/21 Unknown History release metoprolol tartrate 25 mg tablet 25 mg PO QHS blood pressure 02/17/23 04/15/23 History amiodarone 200 mg tablet 200 mg PO DAILY heart rate #0 tabs 02/26/23 04/15/23 Rx albuterol sulfate 90 mcg/actuation 2 inh inhalation .000 PRN 03/27/23 04/16/23 08:22 History breath activated powder inhaler shortness of breath ammonium lactate 12 % lotion (Skin 1 applic topical DAILY PRN dry skin 03/27/23 Unknown History Treatment) aspirin 81 mg tablet,delayed 81 mg PO DAILY heart health 03/27/23 04/15/23 History release (Ecotrin Low Strength) furosemide 40 mg tablet 40 mg PO DAILY diuretic 03/27/23 04/15/23 History mometasone-formoterol HFA 100 2 inh inhalation BID breathing 03/27/23 Unknown History mcg-5 mcg/actuation aerosol inhaler (Dulera) vitamin B complex and vitamin C 1 cap PO DAILY vitamin 03/27/23 Unknown History no.20-folic acid 1 mg capsule (Renal Caps) L.acidophil,salivari-Bifido 1 cap PO BID #0 caps 05/30/23 Unknown Rx bifidum-Strep thermoph 175 mg capsule d-mannose 500 mg capsule 2,000 mg (4 x 500 mg) PO DAILY 1 05/30/23 Unknown Rx month #120 caps sennosides 8.6 mg-docusate sodium 2 tab PO BID PRN constipation 06/25/23 Unknown History 50 mg tablet (Stool Softener-Stimulant Laxative) Allergy/AdvReac Type Severity Reaction Status Date / Time Food Allergies: Uncoded Allergy Swelling Verified 06/25/23 03:12 ibuprofen Allergy Shortness Verified 06/25/23 03:12 of breath oxycodone HCl (From Percocet) Allergy dizziness Verified 06/25/23 03:12 procaine (From Novocain) Allergy Other Verified 06/25/23 03:12 Family History Father Diabetes Mother CAD (coronary artery disease) Heart disease Hypertension Myocardial infarction Surgical History History of History of cholecystectomy History of spinal fusion Social History household members: family Smoking Status: Never smoker alcohol intake: never substance use type: does not use Vital Signs Vital Signs Vital Signs: 10/27/23 13:49 Temperature 97.4 F L Temperature Source Temporal Pulse Rate 76 Respiratory Rate 20 H Blood Pressure 110/62 Blood Pressure Mean 78 Blood Pressure Source Monitor Physical Exam Narrative Patient is wheelchair-bound at most times but can do transfers. 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 There was healthy granulation tissue at the base of the wound and there was no surrounding induration or signs of fluid collections. The skin around the wound was dry and did not demonstrate any signs of yeast growth. Const alert and oriented x3 Debridement Note Debridement Note Post-Debridement Measurements and Additional Note: Post-Debridement Measurements/Treatment WC - Nurse 1 - General Ulcer Assessment Start: 10/27/23 13:49 Freq: Status: Active Protocol: MITCH Activity Type Activity Date Activity User E-sign Co-sign Detail Recorded Client Recorded Date Recorded By Document 10/27/23 13:49 AISHWARYA [id number] 10/27/23 13:58 KW 10/27/23 13:49 - Today's Visit Information Type of service Initial Visit Arrival Mode Wheelchair Transfer Assistance Manual Transfer Assist (Other) X2 Patient Identification Verified (Name & Yes ) Patient Requires Transmission-Based No Precautions Vital Signs Temperature (97.8 F-99.1 F) 97.4 F L Temperature Source Temporal Pulse Rate (60-100) 76 Pulse Location Monitor Respiratory Rate (12-18) 20 H Respiratory rate source Observation Blood Pressure (90/60-120/80) 110/62 Blood Pressure Mean 78 Source Monitor Pain Scale: 0-10 Numeric Is Patient Pain Free? Yes - Nurse 1 - General Ulcer Measurement Start: 10/27/23 13:49 Freq: Status: Active Protocol: Activity Type Activity Date Activity User E-sign Co-sign Detail Recorded Client Recorded Date Recorded By Document 10/27/23 13:49 AISHWARYA [id number] 10/27/23 13:58 10/27/23 13:49 Wound Center Nurse 1 #1 ABD -Current Size (cm) - Length 1 -Current Size (cm) - Width 4.5 -Current Size (cm) - Depth 0.7 -Total Square Cm 4.5 -Date of Last Picture (Recall this 10/27/23 field) -Undermining/Tunneling Yes -Undermining/Tunneling Starts (O'clock 1 ) -Undermining/Tunneling Ends (O'clock) 7 -Maximum Distance (cm) 1.8 -Exudate Type Serosanguineous -Wound Margin Thickened & Rolled Under -Granulation Amt Large (67-100%) -Granulation Quality Red -Texture (Esther-wound Skin Appearance) Assessed -Moisture (Esthre-wound Skin Appearance) Assessed -Color (Esther-wound Skin Appearance) Assessed -Temperature (Esther-wound Skin No Abnormality Appearance) (Pt Warm) -Tenderness on Palpation (Esther-wound No Skin Appearance) -Ulcer Cleansing Rinsed/ Irrigated with Saline -Foul Odor after Cleansing No -Anesthetic Used 5% Lidocaine Gel - Nurse 2 - General Ulcer CM Notes Start: 10/27/23 13:49 Freq: Status: Active Protocol: Activity Type Activity Date Activity User E-sign Co-sign Detail Recorded Client Recorded Date Recorded By Document 10/27/23 14:05 MUSA [id number] 10/27/23 14:20 10/27/23 14:05 Wound Center Nurse 2 -Time 14:20 -Correct Patient Yes -Correct Side, Site, Position Yes -Correct Procedure Yes -Procedure Performed Yes -Type of Procedure Debridement -Clinical Debridement Subcutaneous -Tissue Removed Subcutaneous -Post Debridement (cm) - Length 1 -Post Debridement (cm) - Width 4 -Post Debridement (cm) - Depth 2 -Total Square (Post) (cm) 4 -Area of Debridement (cm) - Length 1 -Area of Debridement (cm) - Width 4 -Total Square (Area) (cm) 4 -Tunneling No -Undermining/Tunneling No -Circular Undermining No -Wound/Ulcer Outcome Not Healed -Ulcer Cleansing Rinsed/ Irrigated with Saline -Foul Odor after Cleansing No -Bioengineered Tissue No -Bleeding Controlled with Pressure -Treatment Response Procedure Tolerated Well -Offloading No -Debridement - Subq, 1st 20sq cm Yes Pain Scale: 0-10 Numeric Is Patient Pain Free? Yes WC - Nurse 3 - General Ulcer D/C NN Start: 10/27/23 13:49 Freq: Status: Active Protocol: Activity Type Activity Date Activity User E-sign Co-sign Detail Recorded Client Recorded Date Recorded By Document 10/27/23 14:31 [id number] 10/27/23 14:31 10/27/23 14:31 Wound Care Center Nurse 3 #1 ABD -Other Dressing DAKINS -Primary Dressing Covered/Secured with Dry Gauze, Secured with Tape Pain Scale: 0-10 Numeric Is Patient Pain Free? Yes WC - Visit Discharge Discharge Condition Stable Ambulatory Status Wheelchair Transportation Private Auto Medication Reconcilliation completed & No provided to patient/care provider Clinical Summary of Care Provided Yes Charges/Coding Visit Charges Office Visits / Consults: 65483 OV L4 New 45min Procedures Integumentary 111xxx-113xx: 32836 Sloane subq tissue 20 sq cm/< (With 25 modifier for the visit (new patient) ) Assessment/Plan Assessment/Plan (1) Skin ulcer of abdominal wall with fat layer exposed: CODE(S): L98.492 - Non-pressure chronic ulcer of skin of other sites with fat layer exposed PLAN: Patient and her daughter had reasonable expectations for her visit today (wound care). They are not interested in any body contouring procedures for the abdominal pannus at [facility] and would like to have any surgery performed at [facility], which I think is appropriate. The above debridement was performed and the wound was cleaned. I will continue to follow the patient in the wound care center. We are going to continue the Truhe twice daily dressing changes as this seems to be helping the wound heal and they have noticed some improvement. I will see her weekly in the wound care center.
[2023-11-03 13:08] VITALS: BP 145/61; PULSE 74; RESP 18; TEMP 36.6
--- NOTE | 2023-11-03 13:26 | PN.PCM_ITS ---
History of Present Illness Date of Service: 11/03/23 Chief Complaint: Abdominal wound History of Wound: Nerissa Bradley is a 77-year-old female who presents to the wound healing center today for evaluation management of an abdominal wound. This wound is located in the midline under her pannus. She does have a very large pannus with significant weight. she reports that this wound has been present for approximately 1 month, first came to her attention when she was admitted to the hospital recently. She thinks it is from her wheelchair hitting against the area. At home, she relies on her daughter to assist her with wound care. Since her discharge from the hospital, they have been utilizing Aquacel they were sent home with but she did run out recently. She had been receiving antifungal powder to apply while in the hospital, but does not have this at home. She denies any history of prior wounds in this area. She does have a history of superficial wounds to the bilateral lower extremities which were also noted at the time of her most recent hospitalization early February, but seem to be resolved at this time. She does wear compression stockings. She is trying to do a better job of elevating her legs but does note she cannot lay back too far without having difficulty breathing. She is diabetic but most recent A1c in 11/2022 5.4 and do not see any active medications for diabetes. She does not smoke. She does not take any blood thinners other than aspirin. Current encounter 27 October 2023: Dr. Mireles graciously referred me this very pleasant 77-year-old female for evaluation of a wound beneath her abdominal pannus in the crease. Mrs. Bradley's daughter was present on the phone during our visit we discussed her status. Their main goal from the visit today was to get follow-up for the abdominal wound beneath her pannus. She was admitted to the [facility] for her multiple comorbidities, including treatment of her COPD as well as aortic stenosis, and during this time she was treated for this wound that was developing beneath her pannus. They suggested that she follow- up with the dispatch specialist and [facility] near her home. She reports that she has been doing packing with Vashe soaked Kerlix twice daily and has been putting Interdry beneath the pannus to keep the skin from becoming macerated. No recent problems with yeast. Subjective Subjective Current encounter, 03 Nov 2023: Doing well overall. No new complaints. No fevers/chills. No new drainage. Daughter has been helping her with the dressing changes with Vashe. Objective Data Objective Data Vital Signs: Vital Signs Temp Pulse Resp BP O2 Del Method 97.9 F 74 18 145/61 H Room Air 11/03/23 13:08 11/03/23 13:08 11/03/23 13:08 11/03/23 13:08 11/03/23 13:08 Oxygen Delivery Method Room Air Charges/Coding Procedures Integumentary 111xxx-113xx: 07090 Sloane subq tissue 20 sq cm/< (4 x 1 cm wound was excised in clinic today with curette. See above note. ) Physical Exam Narrative Patient is wheelchair-bound at most times but can do transfers. 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 There was healthy granulation tissue at the base of the wound and there was no surrounding induration or signs of fluid collections. The skin around the wound was dry and did not demonstrate any signs of yeast growth. Seems to be a little smaller today (doesn't tunnel quite as much, less biofilm). Const alert and oriented x3 Debridement Note Debridement Note Wound debrided: Abdominal wound Laterality: Not Applicable (Central underneath pannus ) Type of Debridement: Excisional debridement Anesthesia Used: 4% Lidocaine Solution Depth: Down to and including healthy tissue and in the subcutaneous layer Percentage of wound debrided: 100 Instrument Used: 5mm curette Severity: Fat Layer Exposed Amount of bleeding with debridement: Mild Bleeding Controlled with: Pressure Patient tolerated procedure: Patient tolerated procedure well Operative Diagnosis: Abdominal wound Post-Debridement Measurements and Additional Note: Post-Debridement Measurements/Treatment WC - Nurse 1 - General Ulcer Assessment Start: 10/27/23 13:49 Freq: Status: Active Protocol: MITCH Activity Type Activity Date Activity User E-sign Co-sign Detail Recorded Client Recorded Date Recorded By Document 10/27/23 13:49 KW [id number] 10/27/23 13:58 KW Document 11/03/23 13:08 [facility] [id number] 11/03/23 13:14 BM 10/27/23 11/03/23 13:49 13:08 - Today's Visit Information Type of service Initial Visit Follow-up Visit (Physician/SALES MANAGEMENT INTERN ) Arrival Mode Wheelchair Ambulatory, Wheelchair Transfer Assistance Manual Other Transfer Assist (Other) X2 2 Patient Identification Verified (Name & Yes Yes ) Patient Requires Transmission-Based No No Precautions Vital Signs Temperature (97.8 F-99.1 F) 97.4 F L 97.9 F Temperature Source Temporal Temporal Pulse Rate (60-100) 76 74 Pulse Location Monitor Monitor Respiratory Rate (12-18) 20 H 18 Respiratory rate source Observation Observation Oxygen Delivery Method Room Air Blood Pressure (90/60-120/80) 110/62 145/61 H Blood Pressure Mean (mm Hg) 78 89 Source Monitor Monitor Position Sitting Blood Pressure Location Right Arm History Since Last Visit- (Skip if this is Patient's initial visit) Have you changed medications since your No last visit? Any new allergies or adverse reactions No Had a fall/change in ADL's that may No increase risk of falls Signs or symptoms of abuse and/or No neglect since last visit Have you been in the hospital since your No last visit? Has dressing in place as prescribed Yes Has compression in place as prescribed N/A Has offloadiing in place as prescribed N/A Experienced any changes in pain level or No management Left Footwear Regular Shoe Right Footwear Regular Shoe Pain Scale: 0-10 Numeric Is Patient Pain Free? Yes Yes - Nurse 1 - General Ulcer Measurement Start: 10/27/23 13:49 Freq: Status: Active Protocol: Activity Type Activity Date Activity User E-sign Co-sign Detail Recorded Client Recorded Date Recorded By Document 10/27/23 13:49 [id number] 10/27/23 13:58 Document 11/03/23 13:08 [facility] [id number] 11/03/23 13:14 [facility] 10/27/23 11/03/23 13:49 13:08 Wound Center Nurse 1 #1 ABD -Combined with other wound No -Current Size (cm) - Length 1 1 -Current Size (cm) - Width 4.5 3 -Current Size (cm) - Depth 0.7 1.2 -Total Square Cm 4.5 3 -Date of Last Picture (Recall this 10/27/23 11/03/23 field) -Photo Taken Yes -Epithelialization Small 1-33% -Tunneling No -Undermining/Tunneling Yes No -Undermining/Tunneling Starts (O'clock 1 ) -Undermining/Tunneling Ends (O'clock) 7 -Maximum Distance (cm) 1.8 -Circular Undermining No -Exudate Amt Large -Exudate Type Serosanguineous Sanguineous -Wound Margin Thickened & Distinct, Rolled Under Outline Attached -Granulation Amt Large (67-100%) Large (67-100%) -Granulation Quality Red Red -Slough/Fibrin No -Necrosis Amt None Present (0 %) -Texture (Esther-wound Skin Appearance) Assessed Assessed, Scarring -Moisture (Esther-wound Skin Appearance) Assessed Assessed -Color (Esther-wound Skin Appearance) Assessed Assessed -Temperature (Esther-wound Skin No Abnormality No Abnormality Appearance) (Pt Warm) (Pt Warm) -Tenderness on Palpation (Esther-wound No No Skin Appearance) -Ulcer Cleansing Rinsed/ Soap and Water Irrigated with Saline -Foul Odor after Cleansing No No -Anesthetic Used 5% Lidocaine 5% Lidocaine Gel Gel WC - Nurse 2 - General Ulcer CM Notes Start: 10/27/23 13:49 Freq: Status: Active Protocol: Activity Type Activity Date Activity User E-sign Co-sign Detail Recorded Client Recorded Date Recorded By Document 10/27/23 14:05 [id number] 10/27/23 14:20 Document 11/03/23 13:24 [id number] 11/03/23 13:26 10/27/23 11/03/23 14:05 13:24 Wound Center Nurse 2 #1 ABD -Time 14:20 13:24 -Correct Patient Yes Yes -Correct Side, Site, Position Yes Yes -Correct Procedure Yes Yes -Procedure Performed Yes Yes -Type of Procedure Debridement Debridement -Clinical Debridement Subcutaneous Subcutaneous -Tissue Removed Subcutaneous Subcutaneous -Post Debridement (cm) - Length 1 1 -Post Debridement (cm) - Width 4 4 -Post Debridement (cm) - Depth 2 2.0 -Total Square (Post) (cm) 4 4 -Area of Debridement (cm) - Length 1 1 -Area of Debridement (cm) - Width 4 4 -Total Square (Area) (cm) 4 4 -Tunneling No No -Undermining/Tunneling No No -Circular Undermining No No -Wound/Ulcer Outcome Not Healed Not Healed -Ulcer Cleansing Rinsed/ Rinsed/ Irrigated with Irrigated with Saline Saline -Foul Odor after Cleansing No No -Bioengineered Tissue No No -Bleeding Controlled with Pressure Pressure -Treatment Response Procedure Procedure Tolerated Well Tolerated Well -Offloading No No -Debridement - Subq, 1st 20sq cm Yes Yes Pain Scale: 0-10 Numeric Is Patient Pain Free? Yes Yes WC - Nurse 3 - General Ulcer D/C NN Start: 10/27/23 13:49 Freq: Status: Active Protocol: Activity Type Activity Date Activity User E-sign Co-sign Detail Recorded Client Recorded Date Recorded By Document 10/27/23 14:31 [id number] 10/27/23 14:31 10/27/23 14:31 Wound Care Center Nurse 3 #1 ABD -Other Dressing DAKINS -Primary Dressing Covered/Secured with Dry Gauze, Secured with Tape Pain Scale: 0-10 Numeric Is Patient Pain Free? Yes WC - Visit Discharge Discharge Condition Stable Ambulatory Status Wheelchair Transportation Private Auto Medication Reconcilliation completed & No provided to patient/care provider Clinical Summary of Care Provided Yes Assessment/Plan Assessment/Plan (1) Skin ulcer of abdominal wall with fat layer exposed: CODE(S): L98.492 - Non-pressure chronic ulcer of skin of other sites with fat layer exposed PLAN: Patient and her daughter had reasonable expectations for her visit today (wound care). They are not interested in any body contouring procedures for the abdominal pannus at [facility] and would like to have any surgery performed at [facility], which I think is appropriate. The above debridement was performed and the wound was cleaned. I will continue to follow the patient in the wound care center. We are going to continue the Vashe twice daily dressing changes as this seems to be helping the wound heal and they have noticed some improvement. I will see her weekly in the wound care center. Plan from 03 Nov 2023: Wound improving. Patient and daughter happy with plan right now. Seems to be healing with current dressing change regimen. Continue dressing changes with Vashe/Kerlix packing. F/u 1 week
--- NOTE | 2023-11-04 08:13 | WC ---
PHOTO 11/03/23 ABD
[2023-11-17 13:36] VITALS: BP 151/57; PULSE 78; RESP 18; TEMP 36.9
--- NOTE | 2023-11-18 11:26 | PN.PCM_ITS ---
History of Present Illness Date of Service: 11/18/23 Chief Complaint: Abdominal wound History of Wound: Nerissa Bradley is a 77-year-old female who presents to the wound healing center today for evaluation management of an abdominal wound. This wound is located in the midline under her pannus. She does have a very large pannus with significant weight. she reports that this wound has been present for approximately 1 month, first came to her attention when she was admitted to the hospital recently. She thinks it is from her wheelchair hitting against the area. At home, she relies on her daughter to assist her with wound care. Since her discharge from the hospital, they have been utilizing Aquacel they were sent home with but she did run out recently. She had been receiving antifungal powder to apply while in the hospital, but does not have this at home. She denies any history of prior wounds in this area. She does have a history of superficial wounds to the bilateral lower extremities which were also noted at the time of her most recent hospitalization early February, but seem to be resolved at this time. She does wear compression stockings. She is trying to do a better job of elevating her legs but does note she cannot lay back too far without having difficulty breathing. She is diabetic but most recent A1c in 11/2022 5.4 and do not see any active medications for diabetes. She does not smoke. She does not take any blood thinners other than aspirin. 27 October 2023: Dr. Mireles graciously referred me this very pleasant 77-year-old female for evaluation of a wound beneath her abdominal pannus in the crease. Mrs. Bradley's daughter was present on the phone during our visit we discussed her status. Their main goal from the visit today was to get follow-up for the abdominal wound beneath her pannus. She was admitted to the [facility] for her multiple comorbidities, including treatment of her COPD as well as aortic stenosis, and during this time she was treated for this wound that was developing beneath her pannus. They suggested that she follow-up with the rn document improvement specialist and [facility] near her home. She reports that she has been doing packing with Vashe soaked Kerlix twice daily and has been putting Interdry beneath the pannus to keep the skin from becoming macerated. No recent problems with yeast. Subjective Subjective 03 Nov 2023: Doing well overall. No new complaints. No fevers/chills. No new drainage. Daughter has been helping her with the dressing changes with Vashe. Current encounter, 17 Nov 2023: Doing well overall. Endorses good dressing pallavi manuel. No new problems Objective Data Objective Data Vital Signs: Vital Signs Temp Pulse Resp BP O2 Del Method 98.4 F 78 18 151/57 H Room Air 11/17/23 13:36 11/17/23 13:36 11/17/23 13:36 11/17/23 13:36 11/03/23 13:08 Oxygen Delivery Method Room Air Charges/Coding Procedures Integumentary 111xxx-113xx: 61484 Sloane subq tissue 20 sq cm/< Physical Exam Narrative Patient is wheelchair-bound at most times but can do transfers. 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 There was healthy granulation tissue at the base of the wound and there was no surrounding induration or signs of fluid collections. The skin around the wound was dry and did not demonstrate any signs of yeast growth. Seems to be a little smaller today (doesn't tunnel quite as much, less biofilm). Const alert and oriented x3 Debridement Note Debridement Note Wound debrided: Midline abdomen Laterality: Not Applicable Type of Debridement: Excisional debridement Anesthesia Used: 4% Lidocaine Solution Depth: in the subcutaneous layer Percentage of wound debrided: 100 Instrument Used: 7mm curette Severity: Fat Layer Exposed Amount of bleeding with debridement: Mild Bleeding Controlled with: Pressure Patient tolerated procedure: Patient tolerated procedure well Assessment/Plan Assessment/Plan (1) Skin ulcer of abdominal wall with fat layer exposed: CODE(S): L98.492 - Non-pressure chronic ulcer of skin of other sites with fat layer exposed PLAN: Patient and her daughter had reasonable expectations for her visit today (wound care). They are not interested in any body contouring procedures for the abdominal pannus at [facility] and would like to have any surgery performed at [facility], which I think is appropriate. The above debridement was performed and the wound was cleaned. I will continue to follow the patient in the wound care center. We are going to continue the Vashe twice daily dressing changes as this seems to be helping the wound heal and they have noticed some improvement. I will see her weekly in the wound care center. Plan from 03 Nov 2023: Wound improving. Patient and daughter happy with plan right now. Seems to be healing with current dressing change regimen. Continue dressing changes with Vashe/Kerlix packing. F/u 1 week Plan from 18 November 2023: Wound improving and should continue current regimen with Vashe and Kerlix packing twice daily. Continue moisture management with current regimen as well. Follow-up in 2 weeks
== END 2023-11-17 23:59 | disposition home or self-care (01) ==
LOC: WC 13:45
PROVIDERS: PCP Internal Medicine; Referring Provider Internal Medicine; Visit Provider Surgery Plastic and Reconstructive Surgery
DX: E11.622 Type 2 diabetes mellitus with other skin ulcer (principal); L98.492 Non-pressure chronic ulcer of skin of other sites with fat layer exposed; N18.4 Chronic kidney disease, stage 4 (severe); J44.9 Chronic obstructive pulmonary disease, unspecified; E11.22 Type 2 diabetes mellitus with diabetic chronic kidney disease; I35.0 Nonrheumatic aortic (valve) stenosis; Z79.51 Long term (current) use of inhaled steroids; Z79.82 Long term (current) use of aspirin; I12.9 Hypertensive chronic kidney disease with stage 1 through stage 4 chronic kidney disease, or unspecified chronic kidney disease; G47.33 Obstructive sleep apnea (adult) (pediatric); K21.9 Gastro-esophageal reflux disease without esophagitis; Z90.49 Acquired absence of other specified parts of digestive tract; Z98.1 Arthrodesis status; Z86.718 Personal history of other venous thrombosis and embolism; Z86.711 Personal history of pulmonary embolism
CPT/HCPCS: 11042; 99214; G0463

== ENCOUNTER → 2023-12-05 | Outpatient (CLI) | payer MEDICARE, OTHER, SELFPAY ==
[2023-12-05 12:12] LABS: Absolute Lymphocyte Count 0.86 X10^3/uL (0.83-4.51); Basophil# 0.06 X10^3/uL; Basophil% 1.2 % (0-1); Eosinophil# 0.44 X10^3/uL; Eosinophils% 8.7 % (0-5); Hematocrit 38.8 % (37-47); Hemoglobin 11.8 g/dL (12.0-15.0); Lymphocyte # 0.86 X10^3/ul (0.83-4.51); Mean Corp Hgb Conc 30.4 g/dL (32-36); Mean Corpuscular Hgb 28.2 pg (27.0-32.0); Mean Corpuscular Volume 92.8 fL (81-99); Mean Platelet Vol. 11.3 fl (6.2-12.0); Monocyte# 0.62 X10^3/uL; Monocyte% 12.3 % (0-10); NRBC Flagged by Analyzer 0 % (0-5); Neutrophil # 3.04 X10^3/uL (2.7-7.7); Neutrophil % 60.2 % (47-70); Platelet Count 175 K/mm3 (150-450); RBC Distribution Width CV 16.5 % (11.6-14.6); RBC Distribution Width SD 56.4 fl (35.1-43.9); Red Blood Count 4.18 M/mm3 (4.2-5.4); White Blood Count 5.1 K/mm3 (4.4-11.0)
[2023-12-05 12:53] LABS: ALB/GLOB Ratio 0.9 RATIO (0.9-2.4); AST(SGOT) 11 U/L (15-37); Alanine Aminotransfer ALT/SGPT 20 U/L (13-56); Albumin, Serum 3.2 g/dL (3.2-5.0); Alkaline Phosphatase 81 U/L (45-117); Anion Gap 5 (5-15); BUN 29 mg/dL (7-18); BUN/Creat Ratio 16.5 RATIO (10-20); Calcium,Total 10.1 mg/dL (8.5-10.1); Chloride 111 mmol/L (98-107); Creatinine, Serum 1.76 mg/dL (0.55-1.02); EST Glomerular Filtration Rate 30 mL/min (>60); Est Glom Filt Rate - Afr Amer 36 mL/min (>60); Ferritin 29 ng/mL (8-252); Globulin 3.6 g/dL (2.2-4.2); Glucose 100 mg/dL (74-106); Iron 70 ug/dL (50-170); Iron Binding Capacity,Total 376 ug/dL (250-450); Potassium 4.5 mmol/L (3.5-5.1); Protein, Total 6.8 g/dL (6.4-8.2); Sodium Level 144 mmol/L (136-145)
== END | disposition home or self-care (01) ==
LOC: LAB 11:29
PROVIDERS: PCP Internal Medicine; Referring Provider Internal Medicine; Visit Provider Internal Medicine
DX: J01.90 Acute sinusitis, unspecified (principal); D64.9 Anemia, unspecified; I10 Essential (primary) hypertension
CPT/HCPCS: 36415; 80053; 82728; 83540; 83550; 85025

== ENCOUNTER 2023-12-08 13:34 | Outpatient (RCR) | payer MEDICARE, OTHER, SELFPAY ==
[2023-11-18 00:07] VITALS: BP 151/57; PULSE 78; RESP 18; TEMP 36.9
[2023-12-08 13:36] VITALS: BP 155/58; PULSE 72; RESP 18; TEMP 35.9
--- NOTE | 2023-12-08 14:00 | PCM.WC.PN ---
History of Present Illness Date of Service: 12/08/23 Chief Complaint: Abdominal wound History of Wound: Nerissa Bradley is a 77-year-old female who presents to the wound healing center today for evaluation management of an abdominal wound. This wound is located in the midline under her pannus. She does have a very large pannus with significant weight. she reports that this wound has been present for approximately 1 month, first came to her attention when she was admitted to the hospital recently. She thinks it is from her wheelchair hitting against the area. At home, she relies on her daughter to assist her with wound care. Since her discharge from the hospital, they have been utilizing Aquacel they were sent home with but she did run out recently. She had been receiving antifungal powder to apply while in the hospital, but does not have this at home. She denies any history of prior wounds in this area. She does have a history of superficial wounds to the bilateral lower extremities which were also noted at the time of her most recent hospitalization early February, but seem to be resolved at this time. She does wear compression stockings. She is trying to do a better job of elevating her legs but does note she cannot lay back too far without having difficulty breathing. She is diabetic but most recent A1c in 11/2022 5.4 and do not see any active medications for diabetes. She does not smoke. She does not take any blood thinners other than aspirin. Current encounter 27 October 2023: Dr. Mireles graciously referred me this very pleasant 77-year-old female for evaluation of a wound beneath her abdominal pannus in the crease. Mrs. Bradley's daughter was present on the phone during our visit we discussed her status. Their main goal from the visit today was to get follow-up for the abdominal wound beneath her pannus. She was admitted to the [facility] for her multiple comorbidities, including treatment of her COPD as well as aortic stenosis, and during this time she was treated for this wound that was developing beneath her pannus. They suggested that she follow-up with the administrative support specialist and [facility] near her home. She reports that she has been doing packing with Vashe soaked Kerlix twice daily and has been putting Interdry beneath the pannus to keep the skin from becoming macerated. No recent problems with yeast. Subjective Subjective 03 Nov 2023: Doing well overall. No new complaints. No fevers/chills. No new drainage. Daughter has been helping her with the dressing changes with Vashe. 17 Nov 2023: Doing well overall. Endorses good dressing changes. No new problems Current encounter, 08 Dec 2023: Doing well. Compliant with wound care. Seeing Dr. Mireles tomorrow. Objective Data Objective Data Vital Signs: Vital Signs Temp Pulse Resp BP O2 Del Method 96.7 F L 72 18 155/58 H Room Air 12/08/23 13:36 12/08/23 13:36 12/08/23 13:36 12/08/23 13:36 12/08/23 13:36 Oxygen Delivery Method Room Air Charges/Coding Procedures Integumentary 111xxx-113xx: [id number] Sloane subq tissue 20 sq cm/< Physical Exam Narrative Patient is wheelchair-bound at most times but can do transfers. 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 There was healthy granulation tissue at the base of the wound and there was no surrounding induration or signs of fluid collections. The skin around the wound was dry and did not demonstrate any signs of yeast growth. Seems to be a little smaller today (doesn't tunnel quite as much, less biofilm). Const alert and oriented x3 Debridement Note Debridement Note Wound debrided: Central abdominal wound Laterality: Not Applicable Type of Debridement: Excisional debridement Anesthesia Used: 4% Lidocaine Solution Depth: in the subcutaneous layer Percentage of wound debrided: 100 Instrument Used: 5mm curette Severity: Fat Layer Exposed Amount of bleeding with debridement: Moderate Bleeding Controlled with: Compression and gauze Patient tolerated procedure: Patient tolerated procedure well Post-Debridement Measurements and Additional Note: Post-Debridement Measurements/Treatment - Nurse 1 - General Ulcer Assessment Start: 12/08/23 13:36 Freq: Status: Active Protocol: MITCH Activity Type Activity Date Activity User E-sign Co-sign Detail Recorded Client Recorded Date Recorded By Document 12/08/23 13:36 KW [id number] 12/08/23 13:40 KW 12/08/23 13:36 - Today's Visit Information Type of service Follow-up Visit (Physician/TIMBER APPRAISER ) Arrival Mode Wheelchair Patient Identification Verified (Name & Yes ) Vital Signs Temperature (97.8 F-99.1 F) 96.7 F L Temperature Source Temporal Pulse Rate (60-100) 72 Pulse Location Monitor Respiratory Rate (12-18) 18 Respiratory rate source Observation Oxygen Delivery Method Room Air Blood Pressure (90/60-120/80) 155/58 H Blood Pressure Mean (mm Hg) 90 Source Monitor Position Sitting Blood Pressure Location Right Arm History Since Last Visit- (Skip if this is Patient's initial visit) Have you changed medications since your No last visit? Any new allergies or adverse reactions No Had a fall/change in ADL's that may No increase risk of falls Signs or symptoms of abuse and/or No neglect since last visit Have you been in the hospital since your No last visit? Has dressing in place as prescribed Yes Has compression in place as prescribed N/A Has offloadiing in place as prescribed N/A Experienced any changes in pain level or No management Left Footwear Regular Shoe Right Footwear Regular Shoe Pain Scale: 0-10 Numeric Is Patient Pain Free? Yes WC - Nurse 1 - General Ulcer Measurement Start: 12/08/23 13:36 Freq: Status: Active Protocol: Activity Type Activity Date Activity User E-sign Co-sign Detail Recorded Client Recorded Date Recorded By Document 12/08/23 13:36 KW [id number] 12/08/23 13:40 KW 12/08/23 13:36 Wound Center Nurse 1 #1 ABD -Current Size (cm) - Length 4 -Current Size (cm) - Width 1.5 -Current Size (cm) - Depth 1.5 -Total Square Cm 6.0 -Date of Last Picture (Recall this 12/08/23 field) -Exudate Amt Medium -Exudate Type Serosanguineous -Wound Margin Distinct, Outline Attached -Granulation Amt Large (67-100%) -Granulation Quality Red -Texture (Esther-wound Skin Appearance) Assessed -Moisture (Esther-wound Skin Appearance) Assessed -Color (Esther-wound Skin Appearance) Assessed -Temperature (Esther-wound Skin No Abnormality Appearance) (Pt Warm) -Tenderness on Palpation (Esther-wound No Skin Appearance) -Ulcer Cleansing Soap and Water -Foul Odor after Cleansing No -Anesthetic Used 5% Lidocaine Gel WC - Nurse 2 - General Ulcer CM Notes Start: 12/08/23 13:36 Freq: Status: Active Protocol: Activity Type Activity Date Activity User E-sign Co-sign Detail Recorded Client Recorded Date Recorded By Document 12/08/23 13:57 MUSA [id number] 12/08/23 13:58 MUSA 12/08/23 13:57 Wound Center Nurse 2 -Time 13:58 -Correct Patient Yes -Correct Side, Site, Position Yes -Correct Procedure Yes -Procedure Performed Yes -Type of Procedure Debridement -Clinical Debridement Subcutaneous -Tissue Removed Subcutaneous -Post Debridement (cm) - Length 0.5 -Post Debridement (cm) - Width 1.5 -Post Debridement (cm) - Depth 1.5 -Total Square (Post) (cm) 0.75 -Area of Debridement (cm) - Length 0.5 -Area of Debridement (cm) - Width 1.5 -Total Square (Area) (cm) 0.75 -Tunneling No -Undermining/Tunneling No -Circular Undermining No -Wound/Ulcer Outcome Not Healed -Ulcer Cleansing Rinsed/ Irrigated with Saline -Foul Odor after Cleansing No -Bioengineered Tissue No -Bleeding Controlled with Pressure -Treatment Response Procedure Tolerated Well -Offloading No -Debridement - Subq, 1st 20sq cm Yes Pain Scale: 0-10 Numeric Is Patient Pain Free? Yes - Nurse 3 - General Ulcer D/C NN Start: 12/08/23 13:36 Freq: Status: Active Protocol: Activity Type Activity Date Activity User E-sign Co-sign Detail Recorded Client Recorded Date Recorded By Document 12/08/23 13:58 MUSA [id number] 12/08/23 13:59 12/08/23 13:58 Wound Care Center Nurse 3 #1 ABD -Ulcer Cleansing Rinsed/ Irrigated with Saline -Foul Odor after Cleansing No -Other Dressing 0.25% dakin's -Primary Dressing Covered/Secured with Dry Gauze, Secured with Tape Pain Scale: 0-10 Numeric Is Patient Pain Free? Yes - Visit Discharge Discharge Condition Stable Ambulatory Status Wheelchair Transportation Private Auto Medication Reconcilliation completed & Yes provided to patient/care provider Clinical Summary of Care Provided Yes Assessment/Plan Assessment/Plan (1) Skin ulcer of abdominal wall with fat layer exposed: CODE(S): L98.492 - Non-pressure chronic ulcer of skin of other sites with fat layer exposed PLAN: Patient and her daughter had reasonable expectations for her visit today (wound care). They are not interested in any body contouring procedures for the abdominal pannus at [facility] and would like to have any surgery performed at [facility], which I think is appropriate. The above debridement was performed and the wound was cleaned. I will continue to follow the patient in the wound care center. We are going to continue the Vashe twice daily dressing changes as this seems to be helping the wound heal and they have noticed some improvement. I will see her weekly in the wound care center. Plan from 03 Nov 2023: Wound improving. Patient and daughter happy with plan right now. Seems to be healing with current dressing change regimen. Continue dressing changes with Vashe/Kerlix packing. F/u 1 week Plan from 18 November 2023: Wound improving and should continue current regimen with Vashe and Kerlix packing twice daily. Continue moisture management with current regimen as well. Follow-up in 2 weeks Plan from 08 Dec 2023: Continue to do the Vashe Kerlix packing. She's healing quite well. F/u in 3 weeks.
== END 2023-12-18 23:59 | disposition home or self-care (01) ==
LOC: WC 13:34
PROVIDERS: PCP Internal Medicine; Referring Provider Internal Medicine; Visit Provider Surgery Plastic and Reconstructive Surgery
DX: L98.492 Non-pressure chronic ulcer of skin of other sites with fat layer exposed (principal); J44.9 Chronic obstructive pulmonary disease, unspecified; E11.9 Type 2 diabetes mellitus without complications; I35.0 Nonrheumatic aortic (valve) stenosis; Z99.3 Dependence on wheelchair
CPT/HCPCS: 11042

== ENCOUNTER 2024-01-12 13:30 | Outpatient (RCR) | payer MEDICARE, OTHER, SELFPAY ==
[2023-12-19 00:34] VITALS: BP 151/57; PULSE 78; RESP 18; TEMP 36.9
[2023-12-29 13:09] VITALS: BP 152/59; PULSE 78; RESP 18; TEMP 36.4
--- NOTE | 2023-12-29 16:56 | PN.PCM_ITS ---
History of Present Illness Date of Service: 12/29/23 Chief Complaint: Abdominal wound History of Wound: Nerissa Bradley is a 77-year-old female who presents to the wound healing center today for evaluation management of an abdominal wound. This wound is located in the midline under her pannus. She does have a very large pannus with significant weight. she reports that this wound has been present for approximately 1 month, first came to her attention when she was admitted to the hospital recently. She thinks it is from her wheelchair hitting against the area. At home, she relies on her daughter to assist her with wound care. Since her discharge from the hospital, they have been utilizing Aquacel they were sent home with but she did run out recently. She had been receiving antifungal powder to apply while in the hospital, but does not have this at home. She denies any history of prior wounds in this area. She does have a history of superficial wounds to the bilateral lower extremities which were also noted at the time of her most recent hospitalization early February, but seem to be resolved at this time. She does wear compression stockings. She is trying to do a better job of elevating her legs but does note she cannot lay back too far without having difficulty breathing. She is diabetic but most recent A1c in 11/2022 5.4 and do not see any active medications for diabetes. She does not smoke. She does not take any blood thinners other than aspirin. Current encounter 27 October 2023: Dr. Mireles graciously referred me this very pleasant 77-year-old female for evaluation of a wound beneath her abdominal pannus in the crease. Mrs. Bradley's daughter was present on the phone during our visit we discussed her status. Their main goal from the visit today was to get follow-up for the abdominal wound beneath her pannus. She was admitted to the [facility] for her multiple comorbidities, including treatment of her COPD as well as aortic stenosis, and during this time she was treated for this wound that was developing beneath her pannus. They suggested that she follow- up with the counterintelligence/humint specialist and [facility] near her home. She reports that she has been doing packing with Vashe soaked Kerlix twice daily and has been putting Interdry beneath the pannus to keep the skin from becoming macerated. No recent problems with yeast. Subjective Subjective 03 Nov 2023: Doing well overall. No new complaints. No fevers/chills. No new drainage. Daughter has been helping her with the dressing changes with Vashe. 17 Nov 2023: Doing well overall. Endorses good dressing changes. No new problems 08 Dec 2023: Doing well. Compliant with wound care. Seeing Dr. Mireles tomorrow. Current encounter, 29 Dec 2023: New wound on abdomen today. Has not been using the pad, Interdry (ran out and needs more, they've been ordered). No fevers/chills. Objective Data Objective Data Vital Signs: Vital Signs Temp Pulse Resp BP 97.5 F L 78 18 152/59 H 12/29/23 13:09 12/29/23 13:09 12/29/23 13:09 12/29/23 13:09 Charges/Coding Procedures Integumentary [id number]: [id number] [place] subq tissue 20 sq cm/< Physical Exam Narrative Patient is wheelchair-bound at most times but can do transfers. 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 There was healthy granulation tissue at the base of the wound and there was no surrounding induration or signs of fluid collections. The skin around the wound was dry and did not demonstrate any signs of yeast growth. Seems to be a little smaller today (doesn't tunnel quite as much, less biofilm). New wound on macerated skin down to subQ only. 3 x 3.5 cm and very superficial (albeit full thickness through dermis). It is adjacent to previous wound Const alert and oriented x3 Debridement Note Debridement Note Wound debrided: Abdomen pannus wounds , both midline/central Laterality: Not Applicable Type of Debridement: Excisional debridement Anesthesia Used: 4% Lidocaine Solution Depth: Down to and including healthy tissue Percentage of wound debrided: 100 Instrument Used: 5mm curette Severity: Fat Layer Exposed Amount of bleeding with debridement: Moderate Bleeding Controlled with: Pressure Patient tolerated procedure: Patient tolerated procedure well Post-Debridement Measurements and Additional Note: Post-Debridement Measurements/Treatment WC - Nurse 1 - General Ulcer Assessment Start: 12/29/23 13:09 Freq: Status: Active Protocol: MITCH Activity Type Activity Date Activity User E-sign Co-sign Detail Recorded Client Recorded Date Recorded By Document 12/29/23 13:09 ANTHONY [id number] 12/29/23 13:19 12/29/23 13:09 - Today's Visit Information Type of service Follow-up Visit (Physician/[employer] ) Arrival Mode Wheelchair Transfer Assistance Manual Transfer Assist (Other) x2 Patient Identification Verified (Name & Yes ) Patient Requires Transmission-Based No Precautions Vital Signs Temperature (97.8 F-99.1 F) 97.5 F L Temperature Source Temporal Pulse Rate (60-100) 78 Pulse Location Monitor Respiratory Rate (12-18) 18 Respiratory rate source Observation Blood Pressure (90/60-120/80) 152/59 H Blood Pressure Mean (mm Hg) 90 Source Monitor History Since Last Visit- (Skip if this is Patient's initial visit) Have you changed medications since your No last visit? Any new allergies or adverse reactions No Had a fall/change in ADL's that may No increase risk of falls Signs or symptoms of abuse and/or No neglect since last visit Have you been in the hospital since your No last visit? Has dressing in place as prescribed Yes Has compression in place as prescribed N/A Has offloadiing in place as prescribed N/A Experienced any changes in pain level or No management Pain Scale: 0-10 Numeric Is Patient Pain Free? Yes LAKESHIA - Nurse 1 - General Ulcer Measurement Start: 12/29/23 13:09 Freq: Status: Active Protocol: Activity Type Activity Date Activity User E-sign Co-sign Detail Recorded Client Recorded Date Recorded By Document 12/29/23 13:09 [id number] 12/29/23 13:19 12/29/23 13:09 Wound Center Nurse 1 #2 R ABD -Current Size (cm) - Length 0.1 -Current Size (cm) - Width 0.1 -Current Size (cm) - Depth 0.1 -Total Square Cm 0.01 -Photo Taken Yes -Exudate Amt Medium -Exudate Type Serosanguineous -Wound Margin Distinct, Outline Attached -Granulation Amt Medium (34-66%) -Granulation Quality Red -Necrosis Amt Medium (34-66%) -Necrotic Tissue Type Adherent Slough -Structure Exposed N/A -Texture (Esther-wound Skin Appearance) Scarring -Moisture (Esther-wound Skin Appearance) No Abnormality -Color (Esther-wound Skin Appearance) No Abnormality -Temperature (Esther-wound Skin No Abnormality Appearance) (Pt Warm) -Ulcer Cleansing Soap and Water -Foul Odor after Cleansing No -Anesthetic Used 5% Lidocaine Gel #1 ABD -Current Size (cm) - Length 0.1 -Current Size (cm) - Width 1 -Current Size (cm) - Depth 0.1 -Total Square Cm 0.1 -Photo Taken Yes -Exudate Amt Medium -Exudate Type Serosanguineous -Wound Margin Distinct, Outline Attached -Granulation Amt Medium (34-66%) -Granulation Quality Red -Necrosis Amt Medium (34-66%) -Necrotic Tissue Type Adherent Slough -Structure Exposed N/A -Texture (Esther-wound Skin Appearance) Scarring -Moisture (Esther-wound Skin Appearance) No Abnormality -Color (Esther-wound Skin Appearance) No Abnormality -Temperature (Esther-wound Skin No Abnormality Appearance) (Pt Warm) -Tenderness on Palpation (Esther-wound No Skin Appearance) -Ulcer Cleansing Soap and Water -Foul Odor after Cleansing No -Anesthetic Used 5% Lidocaine Gel WC - Nurse 2 - General Ulcer CM Notes Start: 12/29/23 13:09 Freq: Status: Active Protocol: Activity Type Activity Date Activity User E-sign Co-sign Detail Recorded Client Recorded Date Recorded By Document 12/29/23 13:29 MUSA [id number] 12/29/23 13:32 MUSA 12/29/23 13:29 Wound Center Nurse 2 #2 R ABD -Time 13:29 -Correct Patient Yes -Correct Side, Site, Position Yes -Correct Procedure Yes -Procedure Performed Yes -Type of Procedure Debridement -Clinical Debridement Subcutaneous -Tissue Removed Subcutaneous -Post Debridement (cm) - Length 2.0 -Post Debridement (cm) - Width 1.0 -Post Debridement (cm) - Depth 0.3 -Total Square (Post) (cm) 2.00 -Area of Debridement (cm) - Length 2.0 -Area of Debridement (cm) - Width 1.0 -Total Square (Area) (cm) 2.00 -Tunneling No -Undermining/Tunneling No -Circular Undermining No -Wound/Ulcer Outcome Not Healed -Ulcer Cleansing Rinsed/ Irrigated with Saline -Foul Odor after Cleansing No -Bioengineered Tissue No -Bleeding Controlled with Pressure -Treatment Response Procedure Tolerated Well -Offloading No -Debridement - Subq, 1st 20sq cm No #1 ABD -Time 13:30 -Correct Patient Yes -Correct Side, Site, Position Yes -Correct Procedure Yes -Procedure Performed Yes -Type of Procedure Debridement -Clinical Debridement Subcutaneous -Tissue Removed Subcutaneous -Post Debridement (cm) - Length 3.0 -Post Debridement (cm) - Width 3.5 -Post Debridement (cm) - Depth 0.1 -Total Square (Post) (cm) 10.50 -Area of Debridement (cm) - Length 3.0 -Area of Debridement (cm) - Width 3.5 -Total Square (Area) (cm) 10.50 -Tunneling No -Undermining/Tunneling No -Circular Undermining No -Wound/Ulcer Outcome Not Healed -Ulcer Cleansing Rinsed/ Irrigated with Saline -Foul Odor after Cleansing No -Bioengineered Tissue No -Bleeding Controlled with Pressure -Treatment Response Procedure Tolerated Well -Offloading No -Debridement - Subq, 1st 20sq cm Yes Pain Scale: 0-10 Numeric Is Patient Pain Free? Yes - Nurse 3 - General Ulcer D/C NN Start: 12/29/23 13:09 Freq: Status: Active Protocol: Activity Type Activity Date Activity User E-sign Co-sign Detail Recorded Client Recorded Date Recorded By Document 12/29/23 13:39 DL [id number] 12/29/23 13:40 DL 12/29/23 13:39 Wound Care Center Nurse 3 #2 R ABD -Ulcer Cleansing Soap and Water -Foul Odor after Cleansing No -Primary Dressing Applied Aquacel AG 4x4 -Primary Dressing Covered/Secured with Dry Gauze, Secured with Tape -Aquacel AG 4x4 1 #1 ABD -Ulcer Cleansing Soap and Water -Foul Odor after Cleansing No -Other Dressing aquacel ag -Primary Dressing Covered/Secured with Dry Gauze, Secured with Tape Treatment Response Procedure Tolerated Well Pain Scale: 0-10 Numeric Is Patient Pain Free? Yes - Visit Discharge Discharge Condition Stable Ambulatory Status Wheelchair Transportation Private Auto Assessment/Plan Assessment/Plan (1) Skin ulcer of abdominal wall with fat layer exposed: CODE(S): L98.492 - Non-pressure chronic ulcer of skin of other sites with fat layer exposed PLAN: Patient and her daughter had reasonable expectations for her visit today (wound care). They are not interested in any body contouring procedures for the abdominal pannus at [facility] and would like to have any surgery performed at [facility], which I think is appropriate. The above debridement was performed and the wound was cleaned. I will continue to follow the patient in the wound care center. We are going to continue the Vashe twice daily dressing changes as this seems to be helping the wound heal and they have noticed some improvement. I will see her weekly in the wound care center. Plan from 03 Nov 2023: Wound improving. Patient and daughter happy with plan right now. Seems to be healing with current dressing change regimen. Continue dressing changes with Vashe/Kerlix packing. F/u 1 week Plan from 18 November 2023: Wound improving and should continue current regimen with Vashe and Kerlix packing twice daily. Continue moisture management with current regimen as well. Follow-up in 2 weeks Plan from 08 Dec 2023: Continue to do the Vashe Kerlix packing. She's healing quite well. F/u in 3 weeks. Plan from 29 Dec 2023: Switch to Aquacel Ag daily and start the intradry. The secondary wound has developed because they have had problems with maceration. I think this will heal quickly if things stay dry. They were happy with the plan. F/u in 2 weeks in the [facility]
[2024-01-12 13:19] VITALS: BP 150/64; PULSE 70; RESP 18; TEMP 36.1
--- NOTE | 2024-01-12 14:34 | PN.PCM_ITS ---
History of Present Illness Date of Service: 01/12/24 Chief Complaint: Abdominal wound History of Wound: Nerissa Bradley is a 77-year-old female who presents to the wound healing center today for evaluation management of an abdominal wound. This wound is located in the midline under her pannus. She does have a very large pannus with significant weight. she reports that this wound has been present for approximately 1 month, first came to her attention when she was admitted to the hospital recently. She thinks it is from her wheelchair hitting against the area. At home, she relies on her daughter to assist her with wound care. Since her discharge from the hospital, they have been utilizing Aquacel they were sent home with but she did run out recently. She had been receiving antifungal powder to apply while in the hospital, but does not have this at home. She denies any history of prior wounds in this area. She does have a history of superficial wounds to the bilateral lower extremities which were also noted at the time of her most recent hospitalization early February, but seem to be resolved at this time. She does wear compression stockings. She is trying to do a better job of elevating her legs but does note she cannot lay back too far without having difficulty breathing. She is diabetic but most recent A1c in 11/2022 5.4 and do not see any active medications for diabetes. She does not smoke. She does not take any blood thinners other than aspirin. Current encounter 27 October 2023: Dr. Mireles graciously referred me this very pleasant 77-year-old female for evaluation of a wound beneath her abdominal pannus in the crease. Mrs. Bradley's daughter was present on the phone during our visit we discussed her status. Their main goal from the visit today was to get follow-up for the abdominal wound beneath her pannus. She was admitted to the [facility] for her multiple comorbidities, including treatment of her COPD as well as aortic stenosis, and during this time she was treated for this wound that was developing beneath her pannus. They suggested that she follow- up with the vocational rehabilitation specialist and [facility] near her home. She reports that she has been doing packing with Vashe soaked Kerlix twice daily and has been putting Interdry beneath the pannus to keep the skin from becoming macerated. No recent problems with yeast. 03 Nov 2023: Doing well overall. No new complaints. No fevers/chills. No new drainage. Daughter has been helping her with the dressing changes with Vashe. 17 Nov 2023: Doing well overall. Endorses good dressing changes. No new problems 08 Dec 2023: Doing well. Compliant with wound care. Seeing Dr. Mireles tomorrow. 29 Dec 2023: New wound on abdomen today. Has not been using the pad, Interdry (ran out and needs more, they've been ordered). No fevers/chills. Subjective Subjective Current encounter, 12 Jan 2024: Has been using Interdry. No fevers/chills. Here today for check up Objective Data Objective Data Vital Signs: Vital Signs Temp Pulse Resp BP 96.9 F L 70 18 150/64 H 01/12/24 13:19 01/12/24 13:19 01/12/24 13:19 01/12/24 13:19 Charges/Coding Multi Select Codes Integumentary Integumentary CPT Codes: 54357 Sloane subq tissue 20 sq cm/< Physical Exam Narrative Patient is wheelchair-bound at most times but can do transfers. 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 There is now a very superficial 4 x 4 cm wound that is a skin only excoriation, albeit full-thickness in the subcutaneous tissues, and is immediately adjacent to the original healed wound. Const alert and oriented x3 Debridement Note Debridement Note Post-Debridement Measurements and Additional Note: Post-Debridement Measurements/Treatment - Nurse 1 - General Ulcer Assessment Start: 12/29/23 13:09 Freq: Status: Active Protocol: WC.LOWEXT Activity Type Activity Date Activity User E-sign Co-sign Detail Recorded Client Recorded Date Recorded By Document 12/29/23 13:09 DL [id number] 12/29/23 13:19 DL Document 01/12/24 13:19 DL [id number] 01/12/24 13:23 DL 12/29/23 01/12/24 13:09 13:19 - Today's Visit Information Type of service Follow-up Visit Follow-up Visit (Physician/ADMISSION DISCHARGE RN (Physician/ADMISSION DISCHARGE RN ) ) Arrival Mode Wheelchair Wheelchair Transfer Assistance Manual Manual Transfer Assist (Other) x2 x2 Patient Identification Verified (Name & Yes Yes ) Patient Requires Transmission-Based No No Precautions Vital Signs Temperature (97.8 F-99.1 F) 97.5 F L 96.9 F L Temperature Source Temporal Temporal Pulse Rate (60-100) 78 70 Pulse Location Monitor Monitor Respiratory Rate (12-18) 18 18 Respiratory rate source Observation Observation Blood Pressure (90/60-120/80) 152/59 H 150/64 H Blood Pressure Mean (mm Hg) 90 92 Source Monitor Monitor History Since Last Visit- (Skip if this is Patient's initial visit) Have you changed medications since your No No last visit? Any new allergies or adverse reactions No No Had a fall/change in ADL's that may No No increase risk of falls Signs or symptoms of abuse and/or No No neglect since last visit Have you been in the hospital since your No No last visit? Has dressing in place as prescribed Yes Yes Has compression in place as prescribed N/A N/A Has offloadiing in place as prescribed N/A No Experienced any changes in pain level or No No management Pain Scale: 0-10 Numeric Is Patient Pain Free? Yes Yes WC - Nurse 1 - General Ulcer Measurement Start: 12/29/23 13:09 Freq: Status: Active Protocol: Activity Type Activity Date Activity User E-sign Co-sign Detail Recorded Client Recorded Date Recorded By Document 12/29/23 13:09 DL [id number] 12/29/23 13:19 DL Document 01/12/24 13:19 DL [id number] 01/12/24 13:23 DL 12/29/23 01/12/24 13:09 13:19 Wound Center Nurse 1 #1 ABD -Current Size (cm) - Length 0.1 5 -Current Size (cm) - Width 1 3 -Current Size (cm) - Depth 0.1 0.3 -Total Square Cm 0.1 15 -Photo Taken Yes Yes -Exudate Amt Medium Medium -Exudate Type Serosanguineous Serosanguineous -Wound Margin Distinct, Distinct, Outline Outline Attached Attached -Granulation Amt Medium (34-66%) Medium (34-66%) -Granulation Quality Red Red -Necrosis Amt Medium (34-66%) Medium (34-66%) -Necrotic Tissue Type Adherent Slough Adherent Slough -Structure Exposed N/A N/A -Texture (Esther-wound Skin Appearance) Scarring Scarring -Moisture (Esther-wound Skin Appearance) No Abnormality No Abnormality -Color (Esther-wound Skin Appearance) No Abnormality No Abnormality -Temperature (Esther-wound Skin No Abnormality No Abnormality Appearance) (Pt Warm) (Pt Warm) -Tenderness on Palpation (Esther-wound No Skin Appearance) -Ulcer Cleansing Soap and Water Soap and Water -Foul Odor after Cleansing No No -Anesthetic Used 5% Lidocaine 5% Lidocaine Gel Gel #2 R ABD -Current Size (cm) - Length 0.1 0.5 -Current Size (cm) - Width 0.1 2 -Current Size (cm) - Depth 0.1 0.2 -Total Square Cm 0.01 1.0 -Photo Taken Yes Yes -Exudate Amt Medium Medium -Exudate Type Serosanguineous Serosanguineous -Wound Margin Distinct, Distinct, Outline Outline Attached Attached -Granulation Amt Medium (34-66%) Medium (34-66%) -Granulation Quality Red Red -Necrosis Amt Medium (34-66%) Medium (34-66%) -Necrotic Tissue Type Adherent Slough Adherent Slough -Structure Exposed N/A N/A -Texture (Esther-wound Skin Appearance) Scarring Scarring -Moisture (Esther-wound Skin Appearance) No Abnormality No Abnormality -Color (Esther-wound Skin Appearance) No Abnormality No Abnormality -Temperature (Esther-wound Skin No Abnormality No Abnormality Appearance) (Pt Warm) (Pt Warm) -Tenderness on Palpation (Esther-wound No Skin Appearance) -Ulcer Cleansing Soap and Water Soap and Water -Foul Odor after Cleansing No Yes, Due to Product Use -Anesthetic Used 5% Lidocaine 5% Lidocaine Gel Gel WC - Nurse 2 - General Ulcer CM Notes Start: 12/29/23 13:09 Freq: Status: Active Protocol: Activity Type Activity Date Activity User E-sign Co-sign Detail Recorded Client Recorded Date Recorded By Document 12/29/23 13:29 MUSA [id number] 12/29/23 13:32 JF Document 01/12/24 13:30 JF [id number] 01/12/24 13:31 JF 12/29/23 01/12/24 13:29 13:30 Wound Center Nurse 2 #1 ABD -Time 13:30 13:30 -Correct Patient Yes No -Correct Side, Site, Position Yes No -Correct Procedure Yes No -Procedure Performed Yes No -Type of Procedure Debridement -Clinical Debridement Subcutaneous -Tissue Removed Subcutaneous -Post Debridement (cm) - Length 3.0 0 -Post Debridement (cm) - Width 3.5 0 -Post Debridement (cm) - Depth 0.1 0 -Total Square (Post) (cm) 10.50 0 -Area of Debridement (cm) - Length 3.0 0 -Area of Debridement (cm) - Width 3.5 0 -Total Square (Area) (cm) 10.50 0 -Tunneling No -Undermining/Tunneling No -Circular Undermining No -Wound/Ulcer Outcome Not Healed Healed- Epithelialized -Ulcer Cleansing Rinsed/ Irrigated with Saline -Foul Odor after Cleansing No -Bioengineered Tissue No -Bleeding Controlled with Pressure -Treatment Response Procedure Tolerated Well -Offloading No -Debridement - Subq, 1st 20sq cm Yes #2 R ABD -Time 13:29 13:31 -Correct Patient Yes Yes -Correct Side, Site, Position Yes Yes -Correct Procedure Yes Yes -Procedure Performed Yes Yes -Type of Procedure Debridement Debridement -Clinical Debridement Subcutaneous Subcutaneous -Tissue Removed Subcutaneous Subcutaneous -Post Debridement (cm) - Length 2.0 4 -Post Debridement (cm) - Width 1.0 4 -Post Debridement (cm) - Depth 0.3 0.1 -Total Square (Post) (cm) 2.00 16 -Area of Debridement (cm) - Length 2.0 4 -Area of Debridement (cm) - Width 1.0 4 -Total Square (Area) (cm) 2.00 16 -Tunneling No No -Undermining/Tunneling No No -Circular Undermining No No -Wound/Ulcer Outcome Not Healed Not Healed -Ulcer Cleansing Rinsed/ Rinsed/ Irrigated with Irrigated with Saline Saline -Foul Odor after Cleansing No No -Bioengineered Tissue No No -Bleeding Controlled with Pressure Pressure -Treatment Response Procedure Procedure Tolerated Well Tolerated Well -Offloading No No -Debridement - Subq, 1st 20sq cm No Yes Pain Scale: 0-10 Numeric Is Patient Pain Free? Yes Yes WC - Nurse 3 - General Ulcer D/C NN Start: 12/29/23 13:09 Freq: Status: Active Protocol: Activity Type Activity Date Activity User E-sign Co-sign Detail Recorded Client Recorded Date Recorded By Document 12/29/23 13:39 DL [id number] 12/29/23 13:40 DL 12/29/23 13:39 Wound Care Center Nurse 3 #1 ABD -Ulcer Cleansing Soap and Water -Foul Odor after Cleansing No -Other Dressing aquacel ag -Primary Dressing Covered/Secured with Dry Gauze, Secured with Tape #2 R ABD -Ulcer Cleansing Soap and Water -Foul Odor after Cleansing No -Primary Dressing Applied Aquacel AG 4x4 -Primary Dressing Covered/Secured with Dry Gauze, Secured with Tape -Aquacel AG 4x4 1 Treatment Response Procedure Tolerated Well Pain Scale: 0-10 Numeric Is Patient Pain Free? Yes WC - Visit Discharge Discharge Condition Stable Ambulatory Status Wheelchair Transportation Private Auto Assessment/Plan Assessment/Plan (1) Skin ulcer of abdominal wall with fat layer exposed: CODE(S): L98.492 - Non-pressure chronic ulcer of skin of other sites with fat layer exposed PLAN: Patient and her daughter had reasonable expectations for her visit today (wound care). They are not interested in any body contouring procedures for the abdominal pannus at [facility] and would like to have any surgery performed at [facility], which I think is appropriate. The above debridement was performed and the wound was cleaned. I will continue to follow the patient in the wound care center. We are going to continue the Vashe twice daily dressing changes as this seems to be helping the wound heal and they have noticed some improvement. I will see her weekly in the wound care center. Plan from 03 Nov 2023: Wound improving. Patient and daughter happy with plan right now. Seems to be healing with current dressing change regimen. Continue dressing changes with Vashe/Kerlix packing. F/u 1 week Plan from 18 November 2023: Wound improving and should continue current regimen with Vashe and Kerlix packing twice daily. Continue moisture management with current regimen as well. Follow-up in 2 weeks Plan from 08 Dec 2023: Continue to do the Vashe Kerlix packing. She's healing quite well. F/u in 3 weeks. Plan from 29 Dec 2023: Switch to Aquacel Ag daily and start the interdry. The secondary wound has developed because they have had problems with maceration. I think this will heal quickly if things stay dry. They were happy with the plan. F/u in 2 weeks in the [facility] Plan from 12 Jan 2024: Continue Aquacel Ag and Interdry over wound. Doing well considering the tunneled wound has healed. Should be able to heal this superficial wound quickly, but need to keep the skin dry to prevent further wounds (likely the etiology of this recent wound was macerated skin). F/u in 2 weeks
== END 2024-01-17 23:59 | disposition home or self-care (01) ==
LOC: WC 13:30
PROVIDERS: PCP Internal Medicine; Referring Provider Internal Medicine; Visit Provider Surgery Plastic and Reconstructive Surgery
DX: L98.492 Non-pressure chronic ulcer of skin of other sites with fat layer exposed (principal); J44.9 Chronic obstructive pulmonary disease, unspecified; E11.9 Type 2 diabetes mellitus without complications; I35.0 Nonrheumatic aortic (valve) stenosis
CPT/HCPCS: 11042

== ENCOUNTER 2024-01-26 13:22 | Outpatient (RCR) | payer MEDICARE, OTHER, SELFPAY ==
[2024-01-18 00:45] VITALS: BP 151/57; PULSE 78; RESP 18; TEMP 36.9
[2024-01-26 13:27] VITALS: RESP 18; TEMP 36.7
--- NOTE | 2024-01-26 14:05 | PCM.WC.PN ---
History of Present Illness Date of Service: 01/26/24 Chief Complaint: Abdominal wound History of Wound: Nerissa Bradley is a 77-year-old female who presents to the wound healing center today for evaluation management of an abdominal wound. This wound is located in the midline under her pannus. She does have a very large pannus with significant weight. she reports that this wound has been present for approximately 1 month, first came to her attention when she was admitted to the hospital recently. She thinks it is from her wheelchair hitting against the area. At home, she relies on her daughter to assist her with wound care. Since her discharge from the hospital, they have been utilizing Aquacel they were sent home with but she did run out recently. She had been receiving antifungal powder to apply while in the hospital, but does not have this at home. She denies any history of prior wounds in this area. She does have a history of superficial wounds to the bilateral lower extremities which were also noted at the time of her most recent hospitalization early February, but seem to be resolved at this time. She does wear compression stockings. She is trying to do a better job of elevating her legs but does note she cannot lay back too far without having difficulty breathing. She is diabetic but most recent A1c in 11/2022 5.4 and do not see any active medications for diabetes. She does not smoke. She does not take any blood thinners other than aspirin. Current encounter 27 October 2023: Dr. Mireles graciously referred me this very pleasant 77-year-old female for evaluation of a wound beneath her abdominal pannus in the crease. Mrs. Bradley's daughter was present on the phone during our visit we discussed her status. Their main goal from the visit today was to get follow-up for the abdominal wound beneath her pannus. She was admitted to the [facility] for her multiple comorbidities, including treatment of her COPD as well as aortic stenosis, and during this time she was treated for this wound that was developing beneath her pannus. They suggested that she follow-up with the development disability specialist and [facility] near her home. She reports that she has been doing packing with Vashe soaked Kerlix twice daily and has been putting Interdry beneath the pannus to keep the skin from becoming macerated. No recent problems with yeast. 03 Nov 2023: Doing well overall. No new complaints. No fevers/chills. No new drainage. Daughter has been helping her with the dressing changes with Vashe. 17 Nov 2023: Doing well overall. Endorses good dressing changes. No new problems 08 Dec 2023: Doing well. Compliant with wound care. Seeing Dr. Mireles tomorrow. 29 Dec 2023: New wound on abdomen today. Has not been using the pad, Interdry (ran out and needs more, they've been ordered). No fevers/chills. 12 Jan 2024: Has been using Interdry. No fevers/chills. Here today for check up Current encounter, 26 Jan 2024: Discharged from [facility] recently after admission for UTI. No much progress on wound. Reports high protein intake and being intentional about this. Objective Data Objective Data Vital Signs: Vital Signs Temp Pulse Resp BP O2 Del Method 98.1 F 78 18 151/57 H Room Air 01/26/24 13:27 01/18/24 00:45 01/26/24 13:27 01/18/24 00:45 01/26/24 13:27 Oxygen Delivery Method Room Air Charges/Coding Procedures Integumentary [id number]: [id number] Sloane subq tissue 20 sq cm/< Physical Exam Narrative Patient is wheelchair-bound at most times but can do transfers. 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 There is now a very superficial 5 x 4 cm wound that is a skin only excoriation, albeit full-thickness in the subcutaneous tissues, and is immediately adjacent to the original healed wound. Const alert and oriented x3 Debridement Note Debridement Note Wound debrided: Middle abdomen in pannus fold Laterality: Not Applicable Type of Debridement: Excisional debridement Anesthesia Used: 4% Lidocaine Solution Depth: in the subcutaneous layer Percentage of wound debrided: 100 Instrument Used: 5mm curette Severity: Fat Layer Exposed Amount of bleeding with debridement: Moderate Bleeding Controlled with: Compression and gauze Patient tolerated procedure: Patient tolerated procedure well Post-Debridement Measurements and Additional Note: Post-Debridement Measurements/Treatment LAKESHIA - Nurse 1 - General Ulcer Assessment Start: 01/26/24 13:27 Freq: Status: Active Protocol: MITCH Activity Type Activity Date Activity User E-sign Co-sign Detail Recorded Client Recorded Date Recorded By Document 01/26/24 13:27 [id number] 01/26/24 13:35 01/26/24 13:27 - Today's Visit Information Type of service Follow-up Visit (Physician/TOOL DESIGN ENGINEER ) Arrival Mode Ambulatory Patient Identification Verified (Name & Yes ) Vital Signs Temperature (97.8 F-99.1 F) 98.1 F Temperature Source Temporal Pulse Location Monitor Respiratory Rate (12-18) 18 Respiratory rate source Observation Oxygen Delivery Method Room Air Source Monitor Position Sitting Blood Pressure Location Left Arm History Since Last Visit- (Skip if this is Patient's initial visit) Have you changed medications since your No last visit? Any new allergies or adverse reactions No Had a fall/change in ADL's that may No increase risk of falls Signs or symptoms of abuse and/or No neglect since last visit Have you been in the hospital since your Yes last visit? Has dressing in place as prescribed No Has compression in place as prescribed N/A Has offloadiing in place as prescribed N/A Experienced any changes in pain level or No management Left Footwear Regular Shoe Right Footwear Regular Shoe Pain Scale: 0-10 Numeric Is Patient Pain Free? Yes - Nurse 1 - General Ulcer Measurement Start: 01/26/24 13:27 Freq: Status: Active Protocol: Activity Type Activity Date Activity User E-sign Co-sign Detail Recorded Client Recorded Date Recorded By Document 01/26/24 13:27 [id number] 01/26/24 13:35 01/26/24 13:27 Wound Center Nurse 1 #1 ABD -Combined with other wound No -Current Size (cm) - Length 3 -Current Size (cm) - Width 4 -Current Size (cm) - Depth 0.1 -Total Square Cm 12 -Epithelialization None Present -Tunneling No -Undermining/Tunneling No -Circular Undermining No -Exudate Amt Medium -Exudate Type Serosanguineous -Wound Margin Distinct, Outline Attached -Granulation Amt Small (1-33%) -Granulation Quality Red -Slough/Fibrin Yes -Necrosis Amt Large (67-100%) -Necrotic Tissue Type Adherent Slough -Texture (Esther-wound Skin Appearance) Assessed -Moisture (Esther-wound Skin Appearance) Assessed,Dry/ Scaly -Color (Esther-wound Skin Appearance) Assessed, Erythema -Temperature (Esther-wound Skin No Abnormality Appearance) (Pt Warm) -Tenderness on Palpation (Esther-wound No Skin Appearance) -Ulcer Cleansing Soap and Water -Foul Odor after Cleansing No -Anesthetic Used 5% Lidocaine Gel #2 R ABD -Combined with other wound No -Current Size (cm) - Length 0.1 -Current Size (cm) - Width 0.1 -Current Size (cm) - Depth 0.1 -Total Square Cm 0.01 -Epithelialization Large 67-100% -Tunneling No -Undermining/Tunneling No -Circular Undermining No -Texture (Esther-wound Skin Appearance) Assessed -Moisture (Esther-wound Skin Appearance) Assessed -Color (Esther-wound Skin Appearance) Assessed WC - Nurse 2 - General Ulcer CM Notes Start: 01/26/24 13:27 Freq: Status: Active Protocol: Activity Type Activity Date Activity User E-sign Co-sign Detail Recorded Client Recorded Date Recorded By Document 01/26/24 13:45 MUSA [id number] 01/26/24 13:48 01/26/24 13:45 Wound Center Nurse 2 -Time 13:47 -Correct Patient Yes -Correct Side, Site, Position Yes -Correct Procedure Yes -Procedure Performed Yes -Type of Procedure Debridement -Clinical Debridement Subcutaneous -Tissue Removed Subcutaneous -Post Debridement (cm) - Length 4 -Post Debridement (cm) - Width 5 -Post Debridement (cm) - Depth 0.1 -Total Square (Post) (cm) 20 -Area of Debridement (cm) - Length 4 -Area of Debridement (cm) - Width 5 -Total Square (Area) (cm) 20 -Tunneling No -Undermining/Tunneling No -Circular Undermining No -Wound/Ulcer Outcome Not Healed -Ulcer Cleansing Rinsed/ Irrigated with Saline -Foul Odor after Cleansing No -Bioengineered Tissue No -Bleeding Controlled with Pressure -Treatment Response Procedure Tolerated Well -Offloading No -Debridement - Subq, 1st 20sq cm Yes Pain Scale: 0-10 Numeric Is Patient Pain Free? Yes Assessment/Plan Assessment/Plan (1) Skin ulcer of abdominal wall with fat layer exposed: CODE(S): L98.492 - Non-pressure chronic ulcer of skin of other sites with fat layer exposed PLAN: Patient and her daughter had reasonable expectations for her visit today (wound care). They are not interested in any body contouring procedures for the abdominal pannus at [facility] and would like to have any surgery performed at [facility], which I think is appropriate. The above debridement was performed and the wound was cleaned. I will continue to follow the patient in the wound care center. We are going to continue the Vashe twice daily dressing changes as this seems to be helping the wound heal and they have noticed some improvement. I will see her weekly in the wound care center. Plan from 03 Nov 2023: Wound improving. Patient and daughter happy with plan right now. Seems to be healing with current dressing change regimen. Continue dressing changes with Vashe/Kerlix packing. F/u 1 week Plan from 18 November 2023: Wound improving and should continue current regimen with Vashe and Kerlix packing twice daily. Continue moisture management with current regimen as well. Follow-up in 2 weeks Plan from 08 Dec 2023: Continue to do the Vashe Kerlix packing. She's healing quite well. F/u in 3 weeks. Plan from 29 Dec 2023: Switch to Aquacel Ag daily and start the interdry. The secondary wound has developed because they have had problems with maceration. I think this will heal quickly if things stay dry. They were happy with the plan. F/u in 2 weeks in the [facility] Plan from 12 Jan 2024: Continue Aquacel Ag and Interdry over wound. Doing well considering the tunneled wound has healed. Should be able to heal this superficial wound quickly, but need to keep the skin dry to prevent further wounds (likely the etiology of this recent wound was macerated skin). F/u in 2 weeks Plan from 26 Jan 2024: Continue Aquacel Ag and Interdry over wound, but try to change the Aqaucel twice daily. Small step back with the admission, but doing better overall and can get this healed with continued local wound care.
== END 2024-02-17 23:59 | disposition home or self-care (01) ==
LOC: WC 13:22
PROVIDERS: PCP Internal Medicine; Referring Provider Internal Medicine; Visit Provider Surgery Plastic and Reconstructive Surgery
DX: E11.622 Type 2 diabetes mellitus with other skin ulcer (principal); L98.492 Non-pressure chronic ulcer of skin of other sites with fat layer exposed; J44.9 Chronic obstructive pulmonary disease, unspecified; I35.0 Nonrheumatic aortic (valve) stenosis; Z99.3 Dependence on wheelchair
CPT/HCPCS: 11042

== ENCOUNTER 2024-01-26 14:29 | Outpatient (CLI) | payer MEDICARE, OTHER, SELFPAY ==
[2024-01-26 14:59] LABS: Absolute Lymphocyte Count 0.97 X10^3/uL (0.83-4.51); Absolute Neutrophil Count 7.4 X10^3/uL (2.0-7.7); Basophil# 0.08 X10^3/uL; Basophil% 0.8 % (0-1); Eosinophil# 0.36 X10^3/uL; Eosinophils% 3.7 % (0-5); Hematocrit 39.4 % (37-47); Lymphocyte # 0.97 X10^3/ul (0.83-4.51); Lymphocyte % 9.9 % (19-41); Mean Corp Hgb Conc 30.5 g/dL (32-36); Mean Corpuscular Hgb 27.9 pg (27.0-32.0); Mean Corpuscular Volume 91.6 fL (81-99); Mean Platelet Vol. 11.3 fl (6.2-12.0); Monocyte# 0.92 X10^3/uL; Monocyte% 9.4 % (0-10); NRBC Flagged by Analyzer 0 % (0-5); Neutrophil # 7.38 X10^3/uL (2.7-7.7); Neutrophil % 75.3 % (47-70); Platelet Count 216 K/mm3 (150-450); RBC Distribution Width CV 14.2 % (11.6-14.6); RBC Distribution Width SD 47.4 fl (35.1-43.9); White Blood Count 9.8 K/mm3 (4.4-11.0)
[2024-01-26 15:56] LABS: ALB/GLOB Ratio 0.7 RATIO (0.9-2.4); AST(SGOT) 21 U/L (15-37); Alanine Aminotransfer ALT/SGPT 25 U/L (13-56); Albumin, Serum 2.9 g/dL (3.2-5.0); Alkaline Phosphatase 88 U/L (45-117); Anion Gap 6 (5-15); BUN 23 mg/dL (7-18); Bilirubin, Direct 0.15 mg/dL (0.00-0.30); Calcium,Total 10.2 mg/dL (8.5-10.1); Chloride 108 mmol/L (98-107); Creatinine, Serum 1.92 mg/dL (0.55-1.02); EST Glomerular Filtration Rate 27 mL/min (>60); Est Glom Filt Rate - Afr Amer 33 mL/min (>60); Glucose 91 mg/dL (74-106); Potassium 3.8 mmol/L (3.5-5.1); Protein, Total 6.9 g/dL (6.4-8.2); Sodium Level 142 mmol/L (136-145)
== END 2024-01-26 23:59 | disposition home or self-care (01) ==
LOC: MEDOUTP 14:30
PROVIDERS: PCP Internal Medicine; Referring Provider Internal Medicine
DX: N39.0 Urinary tract infection, site not specified (principal)
CPT/HCPCS: 36415; 80053; 81002; 82140; 82248; 85025; 87086

== ENCOUNTER 2024-01-28 16:38 | Inpatient (IN) | payer MEDICARE, OTHER, SELFPAY ==
[2024-01-28] VITALS (7 sets, daily range): BP systolic 97–138; BP diastolic 49–78; PULSE 55–77; RESP 14–20; TEMP 36.9–37.1; O2SAT 95–99; BMI 54.1
--- NOTE | 2024-01-28 17:45 | EX.ED.DYSGE1 ---
HPI History of Present Illness Chief Complaint: Weakness Informant: patient, spouse/S.O. and EMS Narrative Narrative: 78-year-old female presenting to the emergency room with the chief complaint of fall and weakness. Patient was recently admitted to [facility] with UTI and ROSELYN. She is on home ertapenem through a right chest line. This is for UTI. Reportedly grew out Klebsiella and has had E. coli infections. Patient has been weak over the past couple days. Daughter wanted to take her to [facility] yesterday but the patient did not wish this. She reportedly had 2 falls today. The second fall occurring when they were trying to get loaded up to go to the clinic. EMS was called and the patient was brought here as this was the nearest treatment facility. Patient states she has been eating appropriately. No reported fevers. Patient notes diarrhea and has a history of C. difficile but reportedly has been on prophylactic vancomycin as well as probiotic. Patient states she did not injure herself in the fall. [facility] Medical History Bacteremia due to Escherichia coli Morbid obesity CKD (chronic kidney disease), stage IV GERD (gastroesophageal reflux disease) History of venous thromboembolism Anxiety and depression Chronic anemia ROBBI treated with BiPAP UTI (urinary tract infection) Abdominal pannus Open abdominal wall wound Type 2 diabetes mellitus Chronic obstructive pulmonary disease with hypoxia Bilateral pulmonary embolism (07/2014) Postoperative atrial fibrillation (06/2014) Essential hypertension Multiple thyroid nodules Osteomyelitis of cervical spine Home Medications ?Medication ?Instructions ?Recorded ?Last Taken ?Type ergocalciferol (vitamin D2) 1,250 50,000 unit PO MAZA SUPPLEMENT 02/25/20 04/15/23 History mcg (50,000 unit) capsule fluoxetine 20 mg capsule 20 mg PO DAILY DEPRESSION 02/25/20 02/25/20 History rosuvastatin 5 mg tablet (Crestor) 5 mg PO QHS cholesterol 01/16/21 Unknown History pantoprazole 40 mg tablet,delayed 40 mg PO DAILY reflux 03/12/21 Unknown History release metoprolol tartrate 25 mg tablet 25 mg PO QHS blood pressure 02/17/23 04/15/23 History amiodarone 200 mg tablet 200 mg PO DAILY heart rate #0 tabs 02/26/23 04/15/23 Rx albuterol sulfate 90 mcg/actuation 2 inh inhalation .000 PRN 03/27/23 04/16/23 08:22 History breath activated powder inhaler shortness of breath ammonium lactate 12 % lotion (Skin 1 applic topical DAILY PRN dry skin 03/27/23 Unknown History Treatment) aspirin 81 mg tablet,delayed 81 mg PO DAILY heart health 03/27/23 04/15/23 History release (Ecotrin Low Strength) furosemide 40 mg tablet 40 mg PO DAILY diuretic 03/27/23 04/15/23 History mometasone-formoterol HFA 100 2 inh inhalation BID breathing 03/27/23 Unknown History mcg-5 mcg/actuation aerosol inhaler (Dulera) vitamin B complex and vitamin C 1 cap PO DAILY vitamin 03/27/23 Unknown History no.20-folic acid 1 mg capsule (Renal Caps) L.acidophil,salivari-Bifido 1 cap PO BID #0 caps 05/30/23 Unknown Rx bifidum-Strep thermoph 175 mg capsule d-mannose 500 mg capsule 2,000 mg (4 x 500 mg) PO DAILY 1 05/30/23 Unknown Rx month #120 caps sennosides 8.6 mg-docusate sodium 2 tab PO BID PRN constipation 06/25/23 Unknown History 50 mg tablet (Stool Softener-Stimulant Laxative) Allergy/AdvReac Type Severity Reaction Status Date / Time aspartame Allergy EDEMA Verified 01/28/24 16:45 ibuprofen Allergy Shortness Verified 01/28/24 16:45 of breath oxycodone HCl (From Percocet) Allergy dizziness Verified 01/28/24 16:45 procaine (From Novocain) Allergy Other Verified 01/28/24 16:45 Family History Father Diabetes Mother CAD (coronary artery disease) Heart disease Hypertension Myocardial infarction Surgical History History of spinal fusion History of cholecystectomy History of Social History household members: family Smoking Status: Never smoker alcohol intake: never substance use type: does not use ROS ROS ED ROS Narrative Generalized weakness Constitutional Constitutional ED: Denies chills, fever(s) or weight loss Eyes Eyes: Denies change in vision or diplopia ENT ENT ED: Denies ear pain, rhinorrhea or sore throat Cardiovascular Cardiovascular: Denies chest pain, orthopnea, palpitations or racing heartbeat Respiratory/Chest Respiratory/Chest: Denies cough, dyspnea or orthopnea Gastrointestinal Gastrointestinal: Denies abdominal pain, diarrhea, nausea or vomiting Genitourinary Genitourinary ED: Reports dysuria and urinary frequency; Denies hematuria Musculoskeletal Musculoskeletal: Denies arthralgias or myalgias Integumentary Denies abscess or rash Neurologic Neurologic: Denies headache(s) or weakness Psychiatric Psychiatric: Denies anxiety, depression, suicidal ideation or suicidal thoughts Endocrine Endocrinology: Denies polydipsia, polyphagia or polyuria Allergic/Immunologic Allergic/Immunologic ED: Denies mouth swelling, tongue swelling or urticaria EXAM Physical Exam Const Vital Signs: 01/28/24 16:40 01/28/24 17:12 01/28/24 17:44 Temperature 98.5 F 98.5 F Temperature Source Oral Oral Pulse Rate 75 Respiratory Rate 18 16 Respiratory Effort Normal Non-Labored Respiratory Pattern Normal Blood Pressure 115/63 138/74 H Blood Pressure Mean 80 95 Pulse Ox 98 Oxygen Delivery Method Room Air Nasal Cannula Oxygen Flow Rate (L/min) 2 01/28/24 19:00 01/28/24 20:00 01/28/24 20:00 Temperature 98.4 F 98.5 F Temperature Source Oral Temporal Pulse Rate 73 55 L 55 L Respiratory Rate 20 H 18 18 Respiratory Effort Respiratory Pattern Blood Pressure 123/78 H 120/52 L 120/52 L Blood Pressure Mean 93 74 74 Pulse Ox 96 98 98 Oxygen Delivery Method Nasal Cannula Nasal Cannula Nasal Cannula Oxygen Flow Rate (L/min) 2 2 2 Positive well nourished, well developed and obese General Appearance ED: well developed and NAD Nutritional Appearance: obese HEENT Reports normocephalic, head/scalp atraumatic and moist mucous membranes Eyes PERRL and EOMs intact bilaterally Neck no lymphadenopathy, supple and no JVD Resp normal respiratory effort and clear to auscultation bilaterally Cardio regular rate, regular rhythm and no murmurs GI normal to inspection, nondistended, normoactive bowel sounds and non-tender Palpation: soft Back/Spine no CVA tenderness and normal ROM Extremity normal to inspection General Extremety ED: Negative for edema General Extremity: Negative for edema Neuro oriented x3 and CN's II-XII intact bilaterally Sensorium / Orientation: alert Motor Exam: strength 5/5 throughout Psych mental status grossly normal Mood & Affect: Negative for depressed or tearful MDM MDM MDM Narrative Medical decision making narrative: Differential diagnosis includes UTI ROSELYN electrolyte abnormalities anemia trauma dehydration Patient's white count 11.4 hemoglobin 11.2 platelet count of 219. INR 1.9 PTT 38.4 creatinine slightly elevated off baseline 2.12. BUN of 25 normal sodium and potassium. AST of 56. Urinalysis 10-25 white cells 25-50 red cells 1+ bacteria this was a catheter specimen. Initially the patient did not wish a catheter but ended up having 1 placed. Family would like her transferred to [facility]. I spoke with their medicine quarterback was excepted her but it is going to be a while due to bed availability and family and patient understand this. She may end up requiring admission here at this institution. I did express my concern that was expressed to me by EMS regarding the sanitary conditions at the home. History & Record Review Discussion w/independent historian: Patient and Family Lab Data Attestation: I reviewed the patient's lab results. Labs: Laboratory Results - last 24 hr 01/28/24 01/28/24 18:00 18:02 WBC 11.4 H RBC 3.93 L Hgb 11.2 L Hct 35.2 L MCV 89.6 MCH 28.5 MCHC 31.8 L RDW Std Deviation 45.5 H RDW Coeff of Ruben 14.1 Plt Count 219 MPV 11.3 Immature Gran % (Auto) 0.600 Neut % (Auto) 82.1 H Lymph % (Auto) 5.4 L [place] % (Auto) 8.6 Eos % (Auto) 2.5 Baso % (Auto) 0.8 Absolute Neuts (auto) 9.3 H Absolute Lymphs (auto) 0.61 L Nucleated RBC % 0 PT 21.5 H INR 1.9 APTT 38.4 H Sodium 143 Potassium 3.8 Chloride 110 H Carbon Dioxide 28.0 Anion Gap 5 BUN 25 H Creatinine 2.12 H Estim Creat Clear Calc 33.84 Est GFR (MDRD) Af Amer 29 L Est GFR (MDRD) Non-Af 24 L BUN/Creatinine Ratio 11.8 Glucose 106 Lactic Acid 1.0 Calcium 10.1 Total Bilirubin 0.70 AST 56 H ALT 36 Alkaline Phosphatase 80 Total Protein 6.4 Albumin 2.8 L Globulin 3.6 Albumin/Globulin Ratio 0.8 L Urine Color Yellow Urine Clarity Sl. Cloudy Urine pH 6.0 Ur Specific [place] 1.025 Urine Protein 30 H Urine Glucose (UA) Normal Urine Ketones 5 H Urine Occult Blood 250 H Urine Nitrite Negative Urine Bilirubin Negative Urine Urobilinogen Normal Ur Leukocyte Esterase 25 H Urine RBC 25-50 SEEN Urine WBC 10-25 SEEN Ur Squamous Epith Cells 0-5 SEEN Urine Bacteria 1+ Hyaline Casts 0-5 SEEN Urine Mucus 0 SEEN Urine Yeast 1+ Management Discussion w/another healthcare provider: Thermal Surfacing Machine Operator ([facility] Main Medicine Quarterback) Discharge Plan Triage Chief Complaint: Weakness ED Provider: Clinton Cosme Dx/Rx/DC Orders Prescriptions: No Action pantoprazole 40 mg tablet,delayed release (DR/EC) 40 mg PO DAILY ergocalciferol (vitamin D2) 50,000 UNIT capsule 50,000 unit PO MAZA Patient Comments: take 1 capsule by mouth every week fluoxetine 20 MG capsule 20 mg PO DAILY Patient Comments: depression rosuvastatin [Crestor] 5 mg Tablet 5 mg PO QHS furosemide 40 mg tablet 40 mg PO DAILY aspirin [Ecotrin Low Strength] 81 mg tablet,delayed release (DR/EC) 81 mg PO DAILY Dulera 100-5 mcg/actuation HFA aerosol inhaler 2 inh inhalation BID Renal Caps 1 mg capsule 1 cap PO DAILY albuterol sulfate 90 mcg/actuation aerosol powdr breath activated 2 inh inhalation .000 PRN (Reason: shortness of breath) ammonium lactate [Skin Treatment] 12 % lotion 1 applic topical DAILY PRN (Reason: dry skin) Patient Comments: APPLIES TO LEGS metoprolol tartrate 25 mg tablet 25 mg PO QHS amiodarone 200 mg Tablet 200 mg PO DAILY Qty: 0 0RF sennosides-docusate sodium [Stool Softener-Stimulant Laxat] 8.6-50 mg Tablet 2 tab PO BID PRN (Reason: constipation) Rx Instructions: Available [id number]. L.acidoph,saliva-B.bif-S.therm 175 mg Capsule 1 cap PO BID Qty: 0 0RF Rx Instructions: At least till the patient finishes the antibiotic. Available OTC d-mannose 500 mg capsule 2,000 mg PO DAILY 30 Days Qty: 120 0RF Primary Care Provider: Sandrine Mireles Referrals: Sandrine Mireles MD [Primary Care Provider] - Print Language: Marshallese
[2024-01-28 18:16] LABS: Absolute Lymphocyte Count 0.61 X10^3/uL (0.83-4.51); Absolute Neutrophil Count 9.3 X10^3/uL (2.0-7.7); Basophil# 0.09 X10^3/uL; Basophil% 0.8 % (0-1); Eosinophil# 0.28 X10^3/uL; Eosinophils% 2.5 % (0-5); Hematocrit 35.2 % (37-47); Hemoglobin 11.2 g/dL (12.0-15.0); Lymphocyte # 0.61 X10^3/ul (0.83-4.51); Lymphocyte % 5.4 % (19-41); Mean Corp Hgb Conc 31.8 g/dL (32-36); Mean Corpuscular Hgb 28.5 pg (27.0-32.0); Mean Corpuscular Volume 89.6 fL (81-99); Mean Platelet Vol. 11.3 fl (6.2-12.0); Monocyte# 0.98 X10^3/uL; Monocyte% 8.6 % (0-10); NRBC Flagged by Analyzer 0 % (0-5); Neutrophil # 9.34 X10^3/uL (2.7-7.7); Neutrophil % 82.1 % (47-70); Platelet Count 219 K/mm3 (150-450); RBC Distribution Width CV 14.1 % (11.6-14.6); RBC Distribution Width SD 45.5 fl (35.1-43.9); Red Blood Count 3.93 M/mm3 (4.2-5.4); White Blood Count 11.4 K/mm3 (4.4-11.0)
[2024-01-28 18:22] LABS: International Normalized Ratio 1.9; Prothrombin Time (Protime)PT. 21.5 SECONDS (11.7-14.9)
[2024-01-28 18:23] LABS: Partial Thromboplast Time 38.4 Seconds (24.1-36.2)
[2024-01-28 18:34] LABS: ALB/GLOB Ratio 0.8 RATIO (0.9-2.4); AST(SGOT) 56 U/L (15-37); Alanine Aminotransfer ALT/SGPT 36 U/L (13-56); Albumin, Serum 2.8 g/dL (3.2-5.0); Alkaline Phosphatase 80 U/L (45-117); Anion Gap 5 (5-15); BUN 25 mg/dL (7-18); BUN/Creat Ratio 11.8 RATIO (10-20); Calcium,Total 10.1 mg/dL (8.5-10.1); Chloride 110 mmol/L (98-107); Creatinine, Serum 2.12 mg/dL (0.55-1.02); EST Glomerular Filtration Rate 24 mL/min (>60); Est Glom Filt Rate - Afr Amer 29 mL/min (>60); Estimated Creatinine Clearance 33.84 ml/min; Globulin 3.6 g/dL (2.2-4.2); Glucose 106 mg/dL (74-106); Potassium 3.8 mmol/L (3.5-5.1); Protein, Total 6.4 g/dL (6.4-8.2); Sodium Level 143 mmol/L (136-145)
[2024-01-28 19:13] LABS: Mucous, Urine 0 SEEN /hpf (<or=2+)
[2024-01-28 19:16] LABS: Color, Urine Yellow (Yellow); Glucose, Dipstick Normal (Normal); Ketone-Dipstick 5 mg/dl (Negative); Leukocyte Esterase-Dipstick 25 /ul (Negative); Nitrite-Dipstick Negative (Negative); Occult Blood-Urine 250 /ul (Negative); Protein-Dipstick 30 mg/dl (Negative); Specific Gravity, Urine 1.025 (1.002-1.030); Urine Bilirubin Dipstick Negative (Negative); Urine Clarity Sl. Cloudy (Clear); Urine Urobilinogen Normal (Normal)
--- NOTE | 2024-01-28 19:23 | ED.RN ---
Croft catheter placed with assistance from 4 nursing staff. Pt has large pannus with recently debrieded wound, unable to stand and pivot to sit on commode. Pt unable to be reclined for incontinence care, unable to use bedpan.
[2024-01-28 19:36] LABS: Bacteria 1+ /hpf (None Seen); Red Blood Cells-Urine 25-50 SEEN /hpf (0-5); Squamous Epithelial Cells - UA 0-5 SEEN /hpf (5-10); White Blood Cells 10-25 SEEN /hpf (0-5)
[2024-01-28 19:37] LABS: Hyaline Cast 0-5 SEEN /lpf (0-5); Yeast-Urine 1+ /hpf (None Seen)
--- NOTE | 2024-01-28 20:30 | CM.ED ---
Social Work Reason for referral: safety concern in home Nursing staff made SW aware of concerns voiced from EMS regarding the safety of patients home, that patients home was full of trash and difficult to navigate safely. SW met with patient and patients daughter to offer resources once discharged. Patient and patients daughter refused any resources or referrals for outside agencies. SW again explained that there were agencies that could potentially help in the home with care and organizing, patient and daughter again refused. Beatriz Alex, MICROBIOLOGY LAB ASSISTANT, PRODUCTION QUALITY ANALYST
[2024-01-28] MEDS: APIXABAN 5 MG TABLET PO (23:26)
[2024-01-28] MEDS: Atorvastatin Calcium 10 MG Tablet PO (23:27)
[2024-01-28] MEDS: Ferrous Sulfate 325 MG Tablet PO (23:27)
[2024-01-28] MEDS: Magnesium Chloride 64 MG Delay Rel.Tablet 128 MG PO (23:27)
[2024-01-29] VITALS (14 sets, daily range): BP systolic 94–119; BP diastolic 40–60; PULSE 65–79; RESP 14–20; TEMP 36.4–37.3; O2SAT 93–100; BMI 51.0
--- NOTE | 2024-01-29 04:17 | HP.PCM.HOS_ITS ---
HPI - General General Date of Admission: 01/29/24 Date of Service: 01/29/24 Chief Complaint: Urinary tract infection HPI Narrative CLAIRE PIRES, is a 78 F with past medical history of ROBBI [on CPAP], aortic stenosis, A-fib on amiodarone and Eliquis, morbid obesity, chronic kidney disease with [baseline creatinine around 2] who presents to the ED with concerns regarding progressive fatigue and episodes of falls at home. She was recently admitted to [facility] for concerns regarding urinary tract infection and acute kidney injury and was discharged on ertapenem, for her E. coli infection. Despite the medication she has been progressively feeling weak over the last few days. For this reason the daughter plan to take over to the [facility] however the patient fell at home and had to be brought to [facility] for further evaluation. She is accepted for admission at [facility] but due to bed unavailability has been in the ED for around 11 hours at this point. She is being further being admitted to the regular nursing floor for further management will bed becomes available at leaving clinic. At the time of evaluation in the ED, blood pressure 113/52, pulse 77, oxygen 97% on room air, WBC 11.4, hemoglobin 11.2, platelet 219, PT 21.5, sodium 143, chloride 3.8, BUN 2.35, creatinine 2.12, AST 56, ALT 36, albumin 2.8 urine protein 30 nitrate negative leukoesterase 25 WBC 10-25 [facility] Medical History Bacteremia due to Escherichia coli Morbid obesity CKD (chronic kidney disease), stage IV GERD (gastroesophageal reflux disease) History of venous thromboembolism Anxiety and depression Chronic anemia ROBBI treated with BiPAP UTI (urinary tract infection) Abdominal pannus Open abdominal wall wound Type 2 diabetes mellitus Chronic obstructive pulmonary disease with hypoxia Bilateral pulmonary embolism (07/2014) Postoperative atrial fibrillation (06/2014) Essential hypertension Multiple thyroid nodules Osteomyelitis of cervical spine Home Medications ?Medication ?Instructions ?Recorded ?Last Taken ?Type ergocalciferol (vitamin D2) 1,250 50,000 unit PO MAZA SUPPLEMENT 02/25/20 04/15/23 History mcg (50,000 unit) capsule fluoxetine 20 mg capsule 20 mg PO DAILY DEPRESSION 02/25/20 02/25/20 History rosuvastatin 5 mg tablet (Crestor) 5 mg PO QHS cholesterol 01/16/21 Unknown History pantoprazole 40 mg tablet,delayed 40 mg PO DAILY reflux 03/12/21 Unknown History release amiodarone 200 mg tablet 200 mg PO DAILY heart rate #0 tabs 02/26/23 04/15/23 Rx albuterol sulfate 90 mcg/actuation 2 inh inhalation .000 PRN 03/27/23 04/16/23 08:22 History breath activated powder inhaler shortness of breath ammonium lactate 12 % lotion (Skin 1 applic topical DAILY PRN dry skin 03/27/23 Unknown History Treatment) furosemide 40 mg tablet 20 mg PO DAILY PRN diuretic 03/27/23 04/15/23 History vitamin B complex and vitamin C 1 cap PO DAILY vitamin 03/27/23 Unknown History no.20-folic acid 1 mg capsule (Renal Caps) sennosides 8.6 mg-docusate sodium 2 tab PO BID PRN constipation 06/25/23 Unknown History 50 mg tablet (Stool Softener-Stimulant Laxative) L.acidophil,salivari-Bifido 1 cap PO DAILY 01/28/24 Unknown History bifidum-Strep thermoph 175 mg capsule apixaban 5 mg tablet (Eliquis) 5 mg PO BID 01/28/24 Unknown History cranberry fruit concentrate 250 mg 250 mg PO DAILY 01/28/24 Unknown History chewable tablet (Azo Cranberry) ertapenem 1 gram solution for 1 g IV DAILY uti 01/28/24 Unknown History injection ferrous sulfate 325 mg (65 mg 325 mg PO BID 01/28/24 Unknown History iron) tablet (FeroSul) fluticasone fur. 100 mcg-umeclid 1 ea inhalation DAILY 01/28/24 Unknown History 62.5 mcg-vilant 25 mcg inhalat.powder (Trelegy Ellipta) magnesium oxide 400 mg (241.3 mg 400 mg PO DAILY 01/28/24 Unknown History magnesium) tablet Allergy/AdvReac Type Severity Reaction Status Date / Time piperacillin (From Zosyn) Allergy Mild Angioedema Verified 01/28/24 23:13 tazobactam (From Zosyn) Allergy Mild Angioedema Verified 01/28/24 23:13 aspartame Allergy EDEMA Verified 01/28/24 23:13 ibuprofen Allergy Shortness Verified 01/28/24 23:13 of breath oxycodone HCl (From Percocet) Allergy dizziness Verified 01/28/24 23:13 procaine (From Novocain) Allergy Other Verified 01/28/24 23:13 Family History Father Diabetes Mother CAD (coronary artery disease) Heart disease Hypertension Myocardial infarction Surgical History History of spinal fusion History of cholecystectomy History of Social History household members: family Smoking Status: Never smoker alcohol intake: never substance use type: does not use Vital Signs Vital Signs Vital Signs: 01/28/24 16:40 01/28/24 17:12 01/28/24 17:44 Temperature 98.5 F 98.5 F Temperature Source Oral Oral Pulse Rate 75 Respiratory Rate 18 16 Respiratory Effort Normal Non-Labored Respiratory Pattern Normal Blood Pressure 115/63 138/74 H Blood Pressure Mean 80 95 Pulse Ox 98 Oxygen Delivery Method Room Air Nasal Cannula Oxygen Flow Rate (L/min) 2 01/28/24 19:00 01/28/24 20:00 01/28/24 20:00 Temperature 98.4 F 98.5 F Temperature Source Oral Temporal Pulse Rate 73 55 L 55 L Respiratory Rate 20 H 18 18 Respiratory Effort Respiratory Pattern Blood Pressure 123/78 H 120/52 L 120/52 L Blood Pressure Mean 93 74 74 Pulse Ox 96 98 98 Oxygen Delivery Method Nasal Cannula Nasal Cannula Nasal Cannula Oxygen Flow Rate (L/min) 2 2 2 01/28/24 21:00 01/28/24 22:00 01/28/24 22:00 Temperature 98.6 F 98.7 F Temperature Source Oral Oral Pulse Rate 77 71 77 Respiratory Rate 18 14 19 H Respiratory Effort Respiratory Pattern Blood Pressure 119/49 L 117/54 L 117/54 L Blood Pressure Mean 72 75 75 Pulse Ox 96 99 95 Oxygen Delivery Method Nasal Cannula Nasal Cannula Nasal Cannula Oxygen Flow Rate (L/min) 2 2 2 01/28/24 23:00 01/29/24 00:17 Temperature 98.8 F 98.5 F Temperature Source Temporal Temporal Pulse Rate 74 74 Respiratory Rate 16 16 Respiratory Effort Respiratory Pattern Blood Pressure 97/55 L 111/54 L Blood Pressure Mean 69 73 Pulse Ox 95 93 Oxygen Delivery Method Nasal Cannula Nasal Cannula Oxygen Flow Rate (L/min) 2 2 Weight Weight: 335 lb 8.697 oz Body Mass Index (BMI) 54.1 Physical Exam Const alert and oriented x3 Constitutional Narrative: Morbidly obese Eyes PERRL Neck no lymphadenopathy Resp normal respiratory effort Resp Narrative: Decreased bilateral breath sounds due to body habitus Cardio regular rate Cardio Narrative: Ejection systolic murmur present GI normal to inspection, nondistended, normoactive bowel sounds Extremity normal to inspection Neuro oriented x3 and CN's II-XII intact bilaterally Psych affect normal Results Medical Records Data Attestation: I reviewed the patient's medical records Lab / Micro Data Attestation: I reviewed the patient's lab results. 01/28/24 18:00 01/28/24 18:00 Labs: Laboratory Results - last 24 hr 01/28/24 18:00: WBC 11.4 H, RBC 3.93 L, Hgb 11.2 L, Hct 35.2 L, MCV 89.6, MCH 28.5, MCHC 31.8 L, RDW Std Deviation 45.5 H, RDW Coeff of Ruben 14.1, Plt Count 219, MPV 11.3, Immature Gran % (Auto) 0.600, Neut % (Auto) 82.1 H, Lymph % (Auto) 5.4 L, [place] % (Auto) 8.6, Eos % (Auto) 2.5, Baso % (Auto) 0.8, Absolute Neuts (auto) 9.3 H, Absolute Lymphs (auto) 0.61 L, Nucleated RBC % 0, PT 21.5 H, INR 1.9, APTT 38.4 H, Sodium 143, Potassium 3.8, Chloride 110 H, Carbon Dioxide 28.0, Anion Gap 5, BUN 25 H, Creatinine 2.12 H, Estim Creat Clear Calc 33.84, E st GFR (MDRD) Af Amer 29 L, Est GFR (MDRD) Non-Af 24 L, BUN/Creatinine Ratio 11.8, Glucose 106, Lactic Acid 1.0, Calcium 10.1, Total Bilirubin 0.70, AST 56 H , ALT 36, Alkaline Phosphatase 80, Total Protein 6.4, Albumin 2.8 L, Globulin 3.6, Albumin/Globulin Ratio 0.8 L 01/28/24 18:02: Urine Color Yellow, Urine Clarity Sl. Cloudy, Urine pH 6.0, Ur Specific [place] 1.025, Urine Protein 30 H, Urine Glucose (UA) Normal, Urine Ketones 5 H, Urine Occult Blood 250 H, Urine Nitrite Negative, Urine Bilirubin Negative, Urine Urobilinogen Normal, Ur Leukocyte Esterase 25 H, Urine RBC 25-50 SEEN, Urine WBC 10-25 SEEN, Ur Squamous Epith Cells 0-5 SEEN, Urine Bacteria 1+, Hyaline Casts 0-5 SEEN, Urine Mucus 0 SEEN, Urine Yeast 1+ Assessment & Plan Assessment/Plan (1) Chronic kidney disease: PLAN: Plan 78-year-old female with morbid obesity, aortic stenosis, ROSELYN on CKD, history of CHF, with ongoing home diuretic therapy presents to the ED with concerns regarding progressive weakness and falls. She was recently diagnosed with urinary tract infection with with E. coli and was discharged home with ertapenem therapy. Hide acute presentation with weakness and falls, no head injury, no focal neurological deficit, AO x 3 at presentation, pointing to words likely syncopal/presyncopal episodes in the setting of significant aortic stenosis and hypovolemia [diuretic therapy, diarrhea following initiation of ertapenem]. She is accepted for admission and is awaiting bed ability at this point #Syncopal/presyncopal episodes -Likely in the setting of and hypovolemia -Gentle IV fluid therapy with normal saline 75 mL/h -Hold diuretics for now -Repeat CBC, BMP in the morning #Aortic stenosis -Fluid therapy as above -Echocardiogram if the patient elects to get her workup at [facility] #ROSELYN on CKD -Elevated BUN levels, likely due to ongoing diarrhea and Lasix therapy -Repeat BMP after fluid therapy #ROBBI -CPAP therapy on home settings #Urinary tract infection -Urine cultures -Continue ertapenem as previously prescribed #Atrial fibrillation -Continue amiodarone and Eliquis #Dyslipidemia: Continue atorvastatin milligrams at bedtime #GERD: Continue pantoprazole #COPD: Continue home medications, no concerns regarding respiratory worsening at this time #Depression: Continue fluoxetine #DVT prophylaxis -Therapeutically anticoagulated with Eliquis Charges/Coding Visit Charges Inpatient E&M: 69881 Init Hosp L2
[2024-01-29] MEDS: 0.9% Normal Saline (1000mL) 1,000 ML 75 ML IV (05:28)
[2024-01-29] MEDS: 0.9% Saline Lock 10 ML Syringe IV (05:28)
[2024-01-29 06:22] LABS: Absolute Lymphocyte Count 0.76 X10^3/uL (0.83-4.51); Absolute Neutrophil Count 6.7 X10^3/uL (2.0-7.7); Basophil% 1.1 % (0-1); Eosinophil# 0.45 X10^3/uL; Hematocrit 32.6 % (37-47); Hemoglobin 10.3 g/dL (12.0-15.0); Lymphocyte # 0.76 X10^3/ul (0.83-4.51); Lymphocyte % 8.4 % (19-41); Mean Corp Hgb Conc 31.6 g/dL (32-36); Mean Corpuscular Hgb 28.8 pg (27.0-32.0); Mean Corpuscular Volume 91.1 fL (81-99); Mean Platelet Vol. 11.3 fl (6.2-12.0); Monocyte# 0.93 X10^3/uL; Monocyte% 10.3 % (0-10); NRBC Flagged by Analyzer 0 % (0-5); Neutrophil # 6.73 X10^3/uL (2.7-7.7); Neutrophil % 74.6 % (47-70); Platelet Count 192 K/mm3 (150-450); RBC Distribution Width CV 14.2 % (11.6-14.6); RBC Distribution Width SD 46.9 fl (35.1-43.9); Red Blood Count 3.58 M/mm3 (4.2-5.4)
[2024-01-29] MEDS: Budesonide Respules 0.5 MG/2 ML AMPUL.NEB. INHALATION ×2 (06:51→20:13)
[2024-01-29] MEDS: Ipratropium/Albuterol Sulfate 3 ML AMPUL.NEB INHALATION ×3 (06:51→20:13)
[2024-01-29 06:52] LABS: International Normalized Ratio 1.9; Prothrombin Time (Protime)PT. 21.5 SECONDS (11.7-14.9)
[2024-01-29 07:03] LABS: ALB/GLOB Ratio 0.9 RATIO (0.9-2.4); AST(SGOT) 48 U/L (15-37); Alanine Aminotransfer ALT/SGPT 30 U/L (13-56); Albumin, Serum 2.4 g/dL (3.2-5.0); Alkaline Phosphatase 64 U/L (45-117); Anion Gap 3 (5-15); BUN 24 mg/dL (7-18); BUN/Creat Ratio 13.3 RATIO (10-20); Bilirubin, Direct 0.17 mg/dL (0.00-0.30); Calcium,Total 8.9 mg/dL (8.5-10.1); Chloride 116 mmol/L (98-107); Creatinine, Serum 1.81 mg/dL (0.55-1.02); EST Glomerular Filtration Rate 29 mL/min (>60); Est Glom Filt Rate - Afr Amer 35 mL/min (>60); Globulin 2.8 g/dL (2.2-4.2); Glucose 86 mg/dL (74-106); Magnesium 2.2 mg/dL (1.6-2.6); Phosphorus 3.2 mg/dL (2.5-4.9); Potassium 3.7 mmol/L (3.5-5.1); Protein, Total 5.2 g/dL (6.4-8.2); Sodium Level 147 mmol/L (136-145)
--- NOTE | 2024-01-29 08:05 | WOUNDNOTE ---
wound photo: under pannus
[2024-01-29] MEDS: Ertapenem Sod 1 GM in 0.9% Normal Saline (50mL MB+) 50 ML IV (10:36)
[2024-01-29] MEDS: Amiodarone 200 MG Tablet PO (10:43)
[2024-01-29] MEDS: FLUoxetine 20 MG Capsule PO (10:43)
[2024-01-29] MEDS: Pantoprazole Sodium 40 MG Tablet PO (10:43)
[2024-01-29] MEDS: APIXABAN 5 MG TABLET PO ×2 (10:45→21:08)
[2024-01-29] MEDS: Ferrous Sulfate 325 MG Tablet PO ×2 (10:45→17:16)
--- NOTE | 2024-01-29 11:48 | CASEMGMT ---
Pt awaiting bed to [facility] main campus.
[2024-01-29] MEDS: Ammonium Lactate 225 gm Bottle 1 APPLIC TOPICAL (13:04)
--- NOTE | 2024-01-29 15:48 | CHAPLAIN ---
Type of Pastoral Visit _x__ Initial Visit ___ Follow-up Visit ___ On-call Visit ___ General Patient Visit ___ Spiritual Assessment ___ Family Conference ___ Bereavement ___ Rapid Response ___ Code Blue ___ Other (describe below) Pastoral Care Referral From _x__ Patient _x__ Family ___ Nurse ___ Physician ___ Target Developer ___ Integrated Circuits Inspector ___ Other (describe below) Sacrament/Intervention ___ Active listening ___ Anointing ___ Mormonism ___ Bereavement ___ Communion ___ Caryn exploration ___ ___ Life review _x__ Prayer ___ Reconciliation ___ Sacrament of Sick _x__ Supportive presence ___ Wedding ___ Other (describe below) Pastoral Comments patient is a repeat admission and has been seen before; daughter is also with the patient as is typical; offer of support and presence; pt is sleepy but able to answer questions; daughter adds to the details; both welcome a prayer and then given more time to rest
[2024-01-30] VITALS (9 sets, daily range): BP systolic 101–133; BP diastolic 43–57; PULSE 64–68; RESP 16–18; TEMP 36.5–37.3; O2SAT 94–99
[2024-01-30] MEDS: Acetaminophen 325 MG Tablet 650 MG PO ×3 (02:23→23:51)
[2024-01-30 06:52] LABS: Absolute Lymphocyte Count 0.91 X10^3/uL (0.83-4.51); Absolute Neutrophil Count 4.5 X10^3/uL (2.0-7.7); Basophil# 0.07 X10^3/uL; Eosinophil# 0.46 X10^3/uL; Eosinophils% 6.7 % (0-5); Hematocrit 31.1 % (37-47); Hemoglobin 9.6 g/dL (12.0-15.0); Lymphocyte # 0.91 X10^3/ul (0.83-4.51); Lymphocyte % 13.3 % (19-41); Mean Corp Hgb Conc 30.9 g/dL (32-36); Mean Corpuscular Hgb 28.7 pg (27.0-32.0); Mean Corpuscular Volume 92.8 fL (81-99); Mean Platelet Vol. 11.2 fl (6.2-12.0); Monocyte# 0.81 X10^3/uL; Monocyte% 11.9 % (0-10); NRBC Flagged by Analyzer 0 % (0-5); Neutrophil # 4.53 X10^3/uL (2.7-7.7); Neutrophil % 66.5 % (47-70); Platelet Count 173 K/mm3 (150-450); RBC Distribution Width CV 14.3 % (11.6-14.6); RBC Distribution Width SD 48.1 fl (35.1-43.9); Red Blood Count 3.35 M/mm3 (4.2-5.4); White Blood Count 6.8 K/mm3 (4.4-11.0)
[2024-01-30] MEDS: Ipratropium/Albuterol Sulfate 3 ML AMPUL.NEB INHALATION ×3 (07:00→20:58)
[2024-01-30] MEDS: Budesonide Respules 0.5 MG/2 ML AMPUL.NEB. INHALATION ×2 (07:00→20:58)
[2024-01-30 07:17] LABS: Anion Gap 3 (5-15); BUN 22 mg/dL (7-18); BUN/Creat Ratio 11.6 RATIO (10-20); Calcium,Total 9.5 mg/dL (8.5-10.1); Chloride 111 mmol/L (98-107); Creatinine, Serum 1.89 mg/dL (0.55-1.02); EST Glomerular Filtration Rate 27 mL/min (>60); Est Glom Filt Rate - Afr Amer 33 mL/min (>60); Estimated Creatinine Clearance 37.83 ml/min; Glucose 96 mg/dL (74-106); Sodium Level 143 mmol/L (136-145)
[2024-01-30] MEDS: Pantoprazole Sodium 40 MG Tablet PO (08:48)
[2024-01-30] MEDS: Ferrous Sulfate 325 MG Tablet PO ×2 (08:49→17:06)
[2024-01-30] MEDS: Ertapenem Sod 1 GM in 0.9% Normal Saline (50mL MB+) 50 ML IV (08:49)
[2024-01-30] MEDS: Amiodarone 200 MG Tablet PO (08:49)
[2024-01-30] MEDS: 0.9% Saline Lock 10 ML Syringe IV ×2 (08:49→11:54)
[2024-01-30] MEDS: FLUoxetine 20 MG Capsule PO (08:49)
--- NOTE | 2024-01-30 11:11 | CM.ED ---
Social Work SW contacted [facility] due to information received from EMS and nursing staff.? EMS reported that they were unable to access patient in her home due to hoarding conditions, they had to crawl over trash to reach the patient. Once EMS personnel reached patient, it was discovered that she was unable to stand on her own and EMS did not have enough room to help patient due to all the garbage in the home.? A marisa filler block inserter remover was utilized to get patient out of the home and on the porch where they were able to transfer her to a gurney.? EMS noted that she was unhygienic and had feces on her.? Nursing staff relayed that when caring for patient, that there was a leaf in her pannus and that patient was unclean.? When speaking with [facility], [facility], they have had previous calls on patient.? [facility] stated that the [facility] was in the process of forcing the issue of either getting the house cleaned or condemning the property.?[facility] stated she would make note of the call due to patient still being in the hospital at the time of the referral. Beatriz Alex, CHIEF CLOTH FINISHING RANGE OPERATOR, PHOTOGRAPHER APPRENTICE LITHOGRAPHIC
--- NOTE | 2024-01-30 11:28 | CASEMGMT ---
Social Work- SW spoke with pt PCP in regards to pt living conditions. PCP has significant concerns about hoarding situation in the home and the impact on pt health. SW encouraged PCP that a call to the city for unsafe conditions may have an impact, as well as involving APS, who has previously been contact regarding pt living conditions. SW encouraged mental health supports as well. Pt is awaiting transfer to [facility] at this time; mental health resources declined at this time d/t transfer status. BRETT was notified by ED SW that ED SW just filed a report with APS, no additional reports needed at this time. BRETT remains available to follow. SACHA Rowell
[2024-01-30] MEDS: Ammonium Lactate 225 gm Bottle 1 APPLIC TOPICAL (11:51)
--- NOTE | 2024-01-30 16:08 | PCM.PN.HOSP ---
Subjective Subjective Completed IV antibiotics, no issues overnight Objective Data Objective Data Vital Signs: Vital Signs Temp Pulse Resp BP Pulse Ox O2 Del Method O2 Flow Rate 97.7 F L 64 18 125/57 H 99 Nasal Cannula 2 01/30/24 15:31 01/30/24 15:31 01/30/24 15:31 01/30/24 15:31 01/30/24 15:31 01/30/24 15:31 01/30/24 15:31 Oxygen Flow Rate (L/min) 2 Oxygen Delivery Method Nasal Cannula Weight: 326 lb 1.019 oz Body Mass Index (BMI) 51.0 Intake & Output: Intake and Output for Last 24 Hours 01/29/24 01/30/24 01/31/24 03:59 03:59 03:59 Intake Total 2550 / 2550 50 / 50 Output Total 1425 / 1425 Balance 1125 / 1125 50 / 50 Lab / Micro Data 01/30/24 06:35 01/30/24 06:35 Labs: Laboratory Results - last 24 hr 01/30/24 06:35: WBC 6.8, RBC 3.35 L, Hgb 9.6 L, Hct 31.1 L, MCV 92.8, MCH 28.7, MCHC 30.9 L, RDW Std Deviation 48.1 H, RDW Coeff of Ruben 14.3, Plt Count 173, MPV 11.2, Immature Gran % (Auto) 0.600, Neut % (Auto) 66.5, Lymph % (Auto) 13.3 L, [place] % (Auto) 11.9 H, Eos % (Auto) 6.7 H, Baso % (Auto) 1.0, Absolute Neuts (auto) 4.5, Absolute Lymphs (auto) 0.91, Nucleated RBC % 0, Sodium 143, Potassium 4.0, Chloride 111 H, Carbon Dioxide 29.0, Anion Gap 3 L, BUN 22 H, Creatinine 1.89 H, Estim Creat Clear Calc 37.83, Est GFR (MDRD) Af Amer 33 L, Est GFR (MDRD) Non-Af 27 L, BUN/Creatinine Ratio 11.6, Glucose 96, Calcium 9.5 Micro: Microbiology 01/28/24 18:02 Urine Catheter - Croft Urine Culture - Preliminary Yeast Like Organism Physical Exam Narrative General: Alert, Oriented x3, Cooperative, No apparent distress, fatigued, morbidly obese HEENT: Atraumatic, PERRLA, EOMI, Normocephalic Oral: Moist Mucosa Neck: Supple, No JVD Lungs: Diminished, Normal air movement, No rhonchi, No wheeze, No rales Cardiovascular: Regular rate, Regular Rhythm, Normal S1, Normal S2, No murmurs, tunneled line in her chest wall for an IV antibiotics Abdomen: Soft, Non Tender, Non-Distended, No Hepato-splenomegaly Extremities: Edema, Capillary Refill Less than 3 Seconds Skin: No rashes, No breakdown Musculoskeletal: No Tenderness to Palpation of Joints or Extremities Neurological: No focal neurological deficits, moves all extremities Psych/Mental Status: Normal Affect, Appropriate, fatigued Assessment & Plan Assessment/Plan (1) Chronic kidney disease: PLAN: Plan 1. Syncopal/presyncopal episodes/ROSELYN on CKD3 -Likely in the setting of and hypovolemia -She did receive IV fluids -Hold diuretics for now -Repeat CBC, BMP in the morning ? Renal function improved yesterday slightly worse today, continue to encourage p.o. intake 2. UTI ? This was an ESBL organism that she completed treatment for from an outside hospital ? She will need to follow-up next [facility] with [facility] to have her line removed 3. Chronic A-fib/aortic stenosis/hyperlipidemia ? Continue with her home blood pressure medications ? Monitor make adjustments as necessary ? Echo from 02/21/2023 with an EF of 70% and moderate aortic stenosis ? Continue with Eliquis 4. GERD ? Stable ? Continue PPI 5. Anxiety/depression ? Stable ? Continue with her home medications DVT: Eliquis Charges/Coding Visit Charges Inpatient E&M: 84555 Subs Hosp L2
[2024-01-30] MEDS: APIXABAN 5 MG TABLET PO (17:06)
[2024-01-30] MEDS: Atorvastatin Calcium 10 MG Tablet PO (22:01)
[2024-01-31 06:02] VITALS: BP 114/44; PULSE 62; RESP 15; TEMP 37.1; O2SAT 95
[2024-01-31 06:04] LABS: Absolute Lymphocyte Count 0.84 X10^3/uL (0.83-4.51); Absolute Neutrophil Count 3.3 X10^3/uL (2.0-7.7); Basophil# 0.07 X10^3/uL; Basophil% 1.2 % (0-1); Eosinophil# 0.55 X10^3/uL; Eosinophils% 9.8 % (0-5); Hematocrit 29.8 % (37-47); Hemoglobin 9.3 g/dL (12.0-15.0); Lymphocyte # 0.84 X10^3/ul (0.83-4.51); Mean Corp Hgb Conc 31.2 g/dL (32-36); Mean Corpuscular Hgb 28.8 pg (27.0-32.0); Mean Corpuscular Volume 92.3 fL (81-99); Mean Platelet Vol. 11.1 fl (6.2-12.0); Monocyte# 0.77 X10^3/uL; Monocyte% 13.7 % (0-10); NRBC Flagged by Analyzer 0 % (0-5); Neutrophil # 3.34 X10^3/uL (2.7-7.7); Neutrophil % 59.6 % (47-70); Platelet Count 160 K/mm3 (150-450); RBC Distribution Width CV 14.2 % (11.6-14.6); RBC Distribution Width SD 48.2 fl (35.1-43.9); Red Blood Count 3.23 M/mm3 (4.2-5.4); White Blood Count 5.6 K/mm3 (4.4-11.0)
[2024-01-31 06:16] LABS: Anion Gap 3 (5-15); BUN 20 mg/dL (7-18); BUN/Creat Ratio 11.9 RATIO (10-20); Calcium,Total 9.3 mg/dL (8.5-10.1); Chloride 110 mmol/L (98-107); Creatinine, Serum 1.68 mg/dL (0.55-1.02); EST Glomerular Filtration Rate 31 mL/min (>60); Est Glom Filt Rate - Afr Amer 38 mL/min (>60); Estimated Creatinine Clearance 42.55 ml/min; Glucose 101 mg/dL (74-106); Potassium 3.9 mmol/L (3.5-5.1); Sodium Level 143 mmol/L (136-145)
[2024-01-31 07:20] VITALS: PULSE 66; RESP 20
[2024-01-31] MEDS: Ipratropium/Albuterol Sulfate 3 ML AMPUL.NEB INHALATION (07:30)
[2024-01-31] MEDS: Budesonide Respules 0.5 MG/2 ML AMPUL.NEB. INHALATION (07:31)
[2024-01-31 08:16] VITALS: O2SAT 94
--- NOTE | 2024-01-31 09:50 | PCM.DC.SUM ---
Providers Date of Admission: 01/29/24 Date of Discharge: 01/31/24 Primary Care Physician: Dr. Sandrine Mireles MD Consultations 01/29/24 05:34 Consult: Onc/Wound/adjustment supervisor Routine Comment: Reason For Visit: URINARY TRACT INFECTION Diagnosis Discharge Diagnosis (1) Syncopal episodes: Status: Acute Code(s): R55 - Syncope and collapse Medications at Discharge Home Medications ergocalciferol (vitamin D2) 1,250 mcg (50,000 unit) capsule 50,000 unit PO MAZA SUPPLEMENT 02/25/20 fluoxetine 20 mg capsule 20 mg PO DAILY DEPRESSION 02/25/20 rosuvastatin 5 mg tablet (Crestor) 5 mg PO QHS cholesterol 01/16/21 pantoprazole 40 mg tablet,delayed release 40 mg PO DAILY reflux 03/12/21 amiodarone 200 mg tablet 200 mg PO DAILY heart rate #0 tabs 02/26/23 albuterol sulfate 90 mcg/actuation breath activated powder inhaler 2 inh inhalation .000 PRN shortness of breath 03/27/23 ammonium lactate 12 % lotion (Skin Treatment) 1 applic topical DAILY PRN dry skin 03/27/23 furosemide 40 mg tablet 20 mg PO DAILY PRN diuretic 03/27/23 vitamin B complex and vitamin C no.20-folic acid 1 mg capsule (Renal Caps) 1 cap PO DAILY vitamin 03/27/23 sennosides 8.6 mg-docusate sodium 50 mg tablet (Stool Softener-Stimulant Laxative) 2 tab PO BID PRN constipation 06/25/23 L.acidophil,salivari-Bifido bifidum-Strep thermoph 175 mg capsule 1 cap PO DAILY 01/28/24 apixaban 5 mg tablet (Eliquis) 5 mg PO BID 01/28/24 cranberry fruit concentrate 250 mg chewable tablet (Azo Cranberry) 250 mg PO DAILY 01/28/24 fluticasone fur. 100 mcg-umeclid 62.5 mcg-vilant 25 mcg inhalat.powder (Trelegy Ellipta) 1 ea inhalation DAILY 01/28/24 magnesium oxide 400 mg (241.3 mg magnesium) tablet 400 mg PO DAILY 01/28/24 ferrous sulfate 325 mg (65 mg iron) tablet (FeroSul) 325 mg PO DAILY 30 days #0 tabs 01/31/24 Hospital Course Operations None Procedures None Summary of Care Provided Minutes Spent on Discharge: 35 Hospital Course: Patient is a 78-year-old female who presented to [facility] ED on 01/29/2024 with weakness and a mechanical fall. Hospital course as noted below. Patient discharged home in stable condition on 01/30. 1. Syncopal episode ? Likely in the setting of aortic stenosis and hypovolemia. No further episodes while inpatient. Telemetry with no concerning findings. Received IV fluids during hospitalization and diuretics were held with good improvement in labs. No further workup required on discharge. 2. ROSELYN on CKD stage III, resolved ? Creatinine 2.12 on admit, baseline around 1.6. Improved back to baseline 1.6 by day of discharge with IV fluid resuscitation and with home diuretics held. Instructed patient to take Lasix 20 mg every other day moving forward on discharge. 3. Recent ESBL UTI ? Had recent hospitalization at [facility] with this, was discharged with PICC line to complete 2-week course of IV ertapenem. Completed course of ertapenem while inpatient here and plan is for line removal at [facility] on 02/04. 4. Poor living situation ? CM/SW followed. They spoke with PCP who had significant concerns about hoarding situation in the home and impact on patient health. Report was filed with APS during this hospitalization. Chronic medical conditions: ? Class III obesity: BMI 51 on admit. Complicated hospital course, care and prognosis. ? Chronic A-fib, aortic stenosis, hyperlipidemia: Continue home amiodarone, Eliquis, and statin. ? GERD: Continue home PPI. ? Anxiety/depression: Continue home fluoxetine. ? COPD: Stable on room air, not in acute exacerbation. Continue home inhalers. Total clinical time spent by myself addressing the patient's medical issues, reviewing all the data, and collaborating with patient's care team: 35 minutes. Physical Exam Narrative General: Alert, Oriented x3, Cooperative, No apparent distress, fatigued, morbidly obese HEENT: Atraumatic, PERRLA, EOMI, Normocephalic Oral: Moist Mucosa Neck: Supple, No JVD Lungs: Diminished, Normal air movement, No rhonchi, No wheeze, No rales Cardiovascular: Regular rate, Regular Rhythm, Normal S1, Normal S2, No murmurs, tunneled line in her chest wall for an IV antibiotics Abdomen: Soft, Non Tender, Non-Distended, No Hepato-splenomegaly Extremities: Edema, Capillary Refill Less than 3 Seconds Skin: No rashes, No breakdown Musculoskeletal: No Tenderness to Palpation of Joints or Extremities Neurological: No focal neurological deficits, moves all extremities Psych/Mental Status: Normal Affect, Appropriate, fatigued Weight / BMI Weight Weight: 147.9 kg Body Mass Index (BMI) 51.0 ABG / Lab / Microbiology Data 01/31/24 05:45 01/31/24 05:45 Laboratory: Laboratory Results - last 24 hr 01/31/24 05:45: WBC 5.6, RBC 3.23 L, Hgb 9.3 L, Hct 29.8 L, MCV 92.3, MCH 28.8, MCHC 31.2 L, RDW Std Deviation 48.2 H, RDW Coeff of Ruben 14.2, Plt Count 160, MPV 11.1, Immature Gran % (Auto) 0.700, Neut % (Auto) 59.6, Lymph % (Auto) 15.0 L, [place] % (Auto) 13.7 H, Eos % (Auto) 9.8 H, Baso % (Auto) 1.2 H, Absolute Neuts (auto) 3.3, Absolute Lymphs (auto) 0.84, Nucleated RBC % 0, Sodium 143, Potassium 3.9, Chloride 110 H, Carbon Dioxide 30.0, Anion Gap 3 L, BUN 20 H, Creatinine 1.68 H, Estim Creat Clear Calc 42.55, Est GFR (MDRD) Af Amer 38 L, Est GFR (MDRD) Non-Af 31 L, BUN/Creatinine Ratio 11.9, Glucose 101, Calcium 9.3 Microbiology: Microbiology 01/28/24 18:02 Urine Catheter - Croft Urine Culture - Final Yeast, not Vanesa albicans D/C Instructions DC O2, CPAP, BIPAP Needs Additional Home O2 Discharge instructions: No DC home with Oxygen: No Meaningful Use Info Meaningful Use Meaningful Use Diagnoses (Choose all that apply): None applicable Ischemic Stroke Statin Dosing Therapy Reference: STATIN DOSE THERAPY REFERENCE: * Patients > 75 years receive moderate or high dose statin therapy. * Patients 75 years or YOUNGER should receive HIGH intensity statin dose unless contraindicated. You will be required to document reason for non-treatment if statin daily dose does not meet guidelines. HIGH DOSE STATIN THERAPY DAILY Atorvastatin > than or = to 40 mg Rosuvastatin > than or = to 20 mg Amlodipine + Atorvastatin > than or = to 2.5/40 mg Ezetimibe + Simvastatin 10/80 mg Simvastatin 80mg Discharge Plan Admission Admit Date/Time: 01/29/24 11:41 Primary Reason for Your Visit: fatigue w/ dehydration, falls Attending Provider: Fabiano Plascencia Primary Care Provider: Sandrine Mireles Consulting Providers: Luís Fisher; Bo Ace Discharge Orders/Prescriptions Prescriptions: Continued pantoprazole 40 mg tablet,delayed release (DR/EC) 40 mg PO DAILY ergocalciferol (vitamin D2) 50,000 UNIT capsule 50,000 unit PO MAZA Patient Comments: take 1 capsule by mouth every week on sundays fluoxetine 20 MG capsule 20 mg PO DAILY Patient Comments: depression rosuvastatin [Crestor] 5 mg Tablet 5 mg PO QHS furosemide 40 mg tablet 20 mg PO DAILY PRN (Reason: diuretic) Renal Caps 1 mg capsule 1 cap PO DAILY albuterol sulfate 90 mcg/actuation aerosol powdr breath activated 2 inh inhalation .000 PRN (Reason: shortness of breath) ammonium lactate [Skin Treatment] 12 % lotion 1 applic topical DAILY PRN (Reason: dry skin) Patient Comments: APPLIES TO LEGS amiodarone 200 mg Tablet 200 mg PO DAILY Qty: 0 0RF sennosides-docusate sodium [Stool Softener-Stimulant Laxat] 8.6-50 mg Tablet 2 tab PO BID PRN (Reason: constipation) Rx Instructions: Available [id number]. Eliquis 5 mg tablet 5 mg PO BID magnesium oxide 400 mg (241.3 mg magnesium) tablet 400 mg PO DAILY Trelegy Ellipta 100-62.5-25 mcg blister with device 1 ea INHALATION DAILY Azo Cranberry 250 mg tablet,chewable 250 mg PO DAILY L.acidoph,saliva-B.bif-S.therm 175 mg Capsule 1 cap PO DAILY Rx Instructions: At least till the patient finishes the antibiotic. Available OTC Changed ferrous sulfate [FeroSul] 325 mg (65 mg iron) tablet 325 mg PO DAILY 30 Days Qty: 0 0RF Discontinued ertapenem 1 gram recon soln 1 g IV DAILY Patient Comments: [NO ORIGINAL SIG] Referrals / Follow Up: Sandrine Mireles MD [Primary Care Provider] - Disposition Disposition (needs filled in before D/C Order can be placed): Home, Self Care Charges/Coding Visit Charges Inpatient E&M: 54426 Disch Hosp >30min
[2024-01-31 10:14] VITALS: BP 119/48; PULSE 64; RESP 18; TEMP 36.6; O2SAT 94
[2024-01-31] MEDS: APIXABAN 5 MG TABLET PO (10:25)
[2024-01-31] MEDS: Amiodarone 200 MG Tablet PO (10:25)
[2024-01-31] MEDS: FLUoxetine 20 MG Capsule PO (10:25)
[2024-01-31] MEDS: Pantoprazole Sodium 40 MG Tablet PO (10:25)
[2024-01-31] MEDS: 0.9% Saline Lock 10 ML Syringe IV (10:25)
[2024-01-31] MEDS: Ammonium Lactate 225 gm Bottle 1 APPLIC TOPICAL (10:26)
--- NOTE | 2024-01-31 11:17 | CASEMGMT ---
Social Work SW?to room to meet with patient and pt's dgt Neema for initial transition planning/care coordination?assessment.?SW?introduced self and role at [facility].? Pt voices understanding and consents to?assessment.? Pt is A/Ox4 and answers all questions appropriately.?? Care providers, pharmacy, and demographics verified. PCP: Aline Specialists: Half Backer, Infectious disease and Urologist at [facility]. (pt cannot remember names). Dr. Aldridge, pulmonology Preferred Pharmacy: [facility] Insurance: [facility] Prescription Benefit:? yes LNOK: lincoln Ibrahim Living Arrangements: Pt lives in a 2 story home with first floor set up and a ramp to enter. Pt lives with her dgt Nemea and states she is independent in ADLs and IADLs Transportation:?pt drives DME: ? walker, cane, wheelchair, HRT, BSC, scooter. Pt states she utilizes all of these in her home. Pt uses oxygen through [employer] and has a bipap at night. Pt dgt does have a portable tank here for transportation home. HHC/SNF: no HHC in the past. Pt has been in rehab in the past at [facility] and [facility] PLAN: Pt and dgt deny any home going needs at this time. SACHA Colby
--- NOTE | 2024-01-31 11:27 | CASEMGMT ---
Social Work VM left with Cathi at [facility] notifying of pt discharge home on this date and request that referral which was submitted by ED SW yesterday be followed up on. SACHA Gray
== END 2024-01-31 11:50 | disposition home or self-care (01) | DRG 683 ==
LOC: ED 01-29 03:55 → MS3 01-29 04:05
PROVIDERS: Family Medicine; Admitting Provider Internal Medicine; Emergency Provider Emergency Medicine; PCP Internal Medicine; Visit Provider Hospitalist
DX: N17.9 Acute kidney failure, unspecified (principal); Z68.43 Body mass index [BMI] 50.0-59.9, adult; I50.32 Chronic diastolic (congestive) heart failure; I13.0 Hypertensive heart and chronic kidney disease with heart failure and stage 1 through stage 4 chronic kidney disease, or unspecified chronic kidney disease; I48.20 Chronic atrial fibrillation, unspecified; N39.0 Urinary tract infection, site not specified; B96.20 Unspecified Escherichia coli [E. coli] as the cause of diseases classified elsewhere; E11.22 Type 2 diabetes mellitus with diabetic chronic kidney disease; E11.622 Type 2 diabetes mellitus with other skin ulcer; E86.1 Hypovolemia; J44.9 Chronic obstructive pulmonary disease, unspecified; N18.32 Chronic kidney disease, stage 3b; F32.A Depression, unspecified; I35.0 Nonrheumatic aortic (valve) stenosis; K21.9 Gastro-esophageal reflux disease without esophagitis; F41.9 Anxiety disorder, unspecified; G47.33 Obstructive sleep apnea (adult) (pediatric); W19.XXXA Unspecified fall, initial encounter; L98.492 Non-pressure chronic ulcer of skin of other sites with fat layer exposed; E66.813 Obesity, class 3; R55 Syncope and collapse; Y92.009 Unspecified place in unspecified non-institutional (private) residence as the place of occurrence of the external cause; Z79.82 Long term (current) use of aspirin; Z90.49 Acquired absence of other specified parts of digestive tract; Z86.711 Personal history of pulmonary embolism; Z79.899 Other long term (current) drug therapy; Z79.01 Long term (current) use of anticoagulants; Z95.9 Presence of cardiac and vascular implant and graft, unspecified; Z59.89 Other problems related to housing and economic circumstances; Z99.3 Dependence on wheelchair
CPT/HCPCS: 11042; 36415; 51702; 80048; 80053; 81001; 82140; 82248; 83605; 83735; 84100; 84443; 85025; 85610; 85730; 87086; 87088; 94640; 97116; 97162; 97166; 97530; 97802; 99252; 99285; A4216; G0463

== ENCOUNTER 2024-02-14 10:20 | Emergency (ER) | payer MEDICARE, OTHER, SELFPAY ==
[2024-02-14] VITALS (9 sets, daily range): BP systolic 93–133; BP diastolic 44–72; PULSE 76–95; RESP 18–24; TEMP 36.6–36.7; O2SAT 93–97; BMI 52.2
--- NOTE | 2024-02-14 10:39 | EKG12_ITS ---
Test Reason : Blood Pressure : */* mmHG Vent. Rate : 86 BPM Atrial Rate : 86 BPM P-R Int : 278 ms QRS Dur : 100 ms QT Int : 418 ms P-R-T Axes : 58 -8 53 degrees QTcB Int : 500 ms Sinus rhythm with 1st degree A-V block Prolonged QT Abnormal ECG Confirmed by INDER GARRETT, KENNEDY ([id number]), managing editor JOSELIN SMRAT ([id number]) on 02/16/2024 8:40:38 AM Referred By: Confirmed By: KENNEDY LOVING MD
--- NOTE | 2024-02-14 11:13 | RAD_ITS ---
HISTORY: weakness. TECHNIQUE: XR Chest 1 View. COMPARISON: 06/28/2023. FINDINGS: CARDIOMEDIASTINAL BORDERS: Cardiac silhouette again upper limits of normal in size. Calcification of the aortic knob. LUNGS: Positioning limits evaluation of the lung apices. Mild linear opacities in the left mid and lower lungs bilaterally. PLEURA: No pleural effusion or pneumothorax seen. OSSEOUS STRUCTURES: Thoracolumbar spinal fusion hardware present. Old left lateral rib fractures RAD/Chest 1 View (Portable) IMPRESSION: Mild atelectasis or inflammation in the left mid and bilateral lower lungs. Electronically Signed: Merlyn Bernal MD at 13:17 EST ,
--- NOTE | 2024-02-14 11:24 | ED.RN ---
EMS reported to this RN that patient will need social work consult d/t conditions of home.
[2024-02-14 11:31] LABS: Absolute Lymphocyte Count 0.57 X10^3/uL (0.83-4.51); Absolute Neutrophil Count 10.5 X10^3/uL (2.0-7.7); Basophil# 0.07 X10^3/uL; Basophil% 0.5 % (0-1); Eosinophil# 0.28 X10^3/uL; Eosinophils% 2.2 % (0-5); Hematocrit 38.2 % (37-47); Hemoglobin 11.6 g/dL (12.0-15.0); Lymphocyte # 0.57 X10^3/ul (0.83-4.51); Lymphocyte % 4.4 % (19-41); Mean Corp Hgb Conc 30.4 g/dL (32-36); Mean Platelet Vol. 12.1 fl (6.2-12.0); Monocyte# 1.27 X10^3/uL; Monocyte% 9.9 % (0-10); NRBC Flagged by Analyzer 0 % (0-5); Neutrophil # 10.46 X10^3/uL (2.7-7.7); Neutrophil % 81.7 % (47-70); Platelet Count 187 K/mm3 (150-450); RBC Distribution Width CV 15.8 % (11.6-14.6); RBC Distribution Width SD 51.9 fl (35.1-43.9); Red Blood Count 4.15 M/mm3 (4.2-5.4); White Blood Count 12.8 K/mm3 (4.4-11.0)
[2024-02-14] MEDS: 0.9% Normal Saline (1000mL) 1,000 ML 999 ML IV (11:31)
--- NOTE | 2024-02-14 11:33 | EDS_ITS ---
HPI History of Present Illness Chief Complaint: Wound Check Informant: patient and family Narrative Narrative: Patient is a 78-year-old female with history of diastolic heart failure, skin wounds, COPD, ROSELYN, chronic anticoagulation on Eliquis and recent hospitalization for antibiotic resistant UTI presenting with generalized weakness and worsening wound of her abdomen. Patient does have a history of abdominal wall wounds (has a large pannus) requring wound care and previously saw Dr. Alfonso. That wound healed but patient's sustained an injury where her abdomen was struck by her wheelchair and has had a worsening wound since. She has been seen once by [facility] wound care and daughter is concerned that they were not treating it appropriately/aggressively enough. Patient was recently admitted at [facility] for urinary tract infection and was actually sent home on ertapenem through PICC line which she finished on January 29. Over the past few days daughters noticed increased drainage, bleeding, odor and pain from the wound of her lower abdomen/pannus. In addition today patient was very weak. The weakness her last night. Daughter is concerned that she could have an infection either from the wound or for another urinary tract infection. [facility] Medical History Chronic kidney disease Bacteremia due to Escherichia coli Morbid obesity CKD (chronic kidney disease), stage IV GERD (gastroesophageal reflux disease) History of venous thromboembolism Anxiety and depression Chronic anemia ROBBI treated with BiPAP UTI (urinary tract infection) Abdominal pannus Open abdominal wall wound Type 2 diabetes mellitus Chronic obstructive pulmonary disease with hypoxia Bilateral pulmonary embolism (07/2014) Postoperative atrial fibrillation (06/2014) Essential hypertension Multiple thyroid nodules Osteomyelitis of cervical spine Home Medications ?Medication ?Instructions ?Recorded ?Last Taken ?Type ergocalciferol (vitamin D2) 1,250 50,000 unit PO MAZA SUPPLEMENT 02/25/20 04/15/23 History mcg (50,000 unit) capsule fluoxetine 20 mg capsule 20 mg PO DAILY DEPRESSION 02/25/20 02/25/20 History rosuvastatin 5 mg tablet (Crestor) 5 mg PO QHS cholesterol 01/16/21 Unknown History pantoprazole 40 mg tablet,delayed 40 mg PO DAILY reflux 03/12/21 Unknown History release amiodarone 200 mg tablet 200 mg PO DAILY heart rate #0 tabs 02/26/23 04/15/23 Rx albuterol sulfate 90 mcg/actuation 2 inh inhalation .000 PRN 03/27/23 04/16/23 08:22 History breath activated powder inhaler shortness of breath ammonium lactate 12 % lotion (Skin 1 applic topical DAILY PRN dry skin 03/27/23 Unknown History Treatment) furosemide 40 mg tablet 20 mg PO DAILY PRN diuretic 03/27/23 04/15/23 History vitamin B complex and vitamin C 1 cap PO DAILY vitamin 03/27/23 Unknown History no.20-folic acid 1 mg capsule (Renal Caps) sennosides 8.6 mg-docusate sodium 2 tab PO BID PRN constipation 06/25/23 Unknown History 50 mg tablet (Stool Softener-Stimulant Laxative) L.acidophil,salivari-Bifido 1 cap PO DAILY 01/28/24 Unknown History bifidum-Strep thermoph 175 mg capsule apixaban 5 mg tablet (Eliquis) 5 mg PO BID 01/28/24 Unknown History cranberry fruit concentrate 250 mg 250 mg PO DAILY 01/28/24 Unknown History chewable tablet (Azo Cranberry) fluticasone fur. 100 mcg-umeclid 1 ea inhalation DAILY 01/28/24 Unknown History 62.5 mcg-vilant 25 mcg inhalat.powder (Trelegy Ellipta) magnesium oxide 400 mg (241.3 mg 400 mg PO DAILY 01/28/24 Unknown History magnesium) tablet ferrous sulfate 325 mg (65 mg 325 mg PO DAILY 30 days #0 tabs 01/31/24 Unknown Rx iron) tablet (FeroSul) Allergy/AdvReac Type Severity Reaction Status Date / Time piperacillin (From Zosyn) Allergy Mild Angioedema Verified 02/14/24 10:21 tazobactam (From Zosyn) Allergy Mild Angioedema Verified 02/14/24 10:21 aspartame Allergy EDEMA Verified 02/14/24 10:21 ibuprofen Allergy Shortness Verified 02/14/24 10:21 of breath oxycodone HCl (From Percocet) Allergy dizziness Verified 02/14/24 10:21 procaine (From Novocain) Allergy Other Verified 02/14/24 10:21 Family History Father Diabetes Mother CAD (coronary artery disease) Heart disease Hypertension Myocardial infarction Surgical History History of spinal fusion History of cholecystectomy History of Social History household members: family Smoking Status: Never smoker alcohol intake: never substance use type: does not use ROS ROS ED Constitutional Constitutional ED: Reports other Details: Low-grade temperature of 99.1 yesterday ; Denies chills or fever(s) ENT ENT ED: Denies ear pain, rhinorrhea or sore throat Cardiovascular Cardiovascular: Denies chest pain or palpitations Respiratory/Chest Respiratory/Chest: Denies cough or dyspnea Gastrointestinal Gastrointestinal: Denies abdominal pain, diarrhea, nausea or vomiting Musculoskeletal Musculoskeletal: Denies arthralgias or myalgias Integumentary Reports other Details: lower abdominal/pannus wound Neurologic Neurologic: Reports weakness; Denies paresthesias Psychiatric Psychiatric: Denies anxiety Hematologic/Lymphatic Hematologic/Lymphatic: Reports easy bleeding and other Details: on Eliquis EXAM Physical Exam Const Vital Signs: 02/14/24 10:21 02/14/24 11:32 02/14/24 12:00 Temperature 97.8 F 97.8 F 98 F Temperature Source Oral Oral Temporal Pulse Rate 95 82 84 Respiratory Rate 18 24 H 18 Blood Pressure 93/44 L 116/53 L 119/72 Blood Pressure Mean 60 74 87 Pulse Ox 95 94 95 Oxygen Delivery Method Room Air Room Air Room Air 02/14/24 14:00 02/14/24 15:24 02/14/24 17:00 Temperature 98.1 F Temperature Source Oral Pulse Rate 79 81 79 Respiratory Rate 23 H 18 19 H Blood Pressure 124/49 H 115/66 132/60 H Blood Pressure Mean 74 82 84 Pulse Ox 94 93 95 Oxygen Delivery Method Room Air Room Air 02/14/24 19:00 02/14/24 21:00 Temperature Temperature Source Pulse Rate 76 82 Respiratory Rate 18 20 H Blood Pressure 133/58 H 127/48 H Blood Pressure Mean 83 74 Pulse Ox 97 95 Oxygen Delivery Method Room Air Positive well developed Constitutional Narrative: chronically ill appearing General Appearance ED: well developed and NAD HEENT Reports TM's clear and moist mucous membranes Tympanic Membrane ED: Yes TM's clear Eyes PERRL Neck supple and no JVD Chest Wall inspection of chest normal and palpation of chest normal Resp normal respiratory effort and clear to auscultation bilaterally Auscultation: Negative for rhonchi or wheezes Cardio regular rate and regular rhythm Rate: other Other Details: Murmur present (history of aortic stenosis) GI non-tender Auscultation: normoactive bowel sounds Palpation: soft; Negative for tender or guarding Extremity normal to inspection General Extremety ED: Negative for tenderness Neuro oriented x3 Sensorium / Orientation: alert Motor Exam: general weakness Psych mental status grossly normal Skin Skin Narrative: Patient has significantly enlarged abdominal wall/pannus. There is chronic appearing induration of the lower abdomen/pannus. On the underside there is approximately 6 cm x 6 cm ulcerated wound that is slightly necrotic appearing and malodorous. No associated crepitus or lymphangitic streaking. Mild drainage present. MDM MDM MDM Narrative Medical decision making narrative: Patient is evaluated for generalized weakness as well as worsening abdominal wall wound. Sepsis workup initiated with source concern for abdominal wall versus urinary tract infection. Patient was admitted clinic [facility] earlier this month and would like to go back there. Once workup is back will call for admission. Anticipate patient will require admission despite workup. Patient is a leukocytosis, lactic acidosis and urinary tract infection. She is to potential sources (urine and wound). Is covered with vancomycin and Levaquin (given severe penicillin allergy). Is given a liter of IV fluid with improvement of blood pressure. Is started on maintenance fluid at 100 cc an hour given her history of heart failure. Blood pressure is responsive to the liter of IV fluid and her lactate is downtrending. Chest x-ray shows mild atelectasis or inflammation of the left mid and bilateral lower lungs. Patient does not have any increased O2 demands and then complain of any respiratory symptoms. On my review I do not appreciate any acute infiltrate. I discussed the case with Dr. Ha at [facility] and she accepted the patient. She would like to see the repeat lactate and ensure vital signs are stable before admitting her to the general medical floor. Transfer line is contacted when a repeat lactate is obtained and she is officially excepted. Patient and daughter agreeable with this plan of care. Urine, blood and wound cultures are pending at this time. Lab Data Attestation: I reviewed the patient's lab results. Labs: Laboratory Results - last 24 hr 02/14/24 02/14/2424 11:00 12:30 15:22 WBC 12.8 H RBC 4.15 L Hgb 11.6 L Hct 38.2 MCV 92.0 MCH 28.0 MCHC 30.4 L RDW Std Deviation 51.9 H RDW Coeff of Ruben 15.8 H Plt Count 187 MPV 12.1 H Immature Gran % (Auto) 1.300 H Neut % (Auto) 81.7 H Lymph % (Auto) 4.4 L [place] % (Auto) 9.9 Eos % (Auto) 2.2 Baso % (Auto) 0.5 Absolute Neuts (auto) 10.5 H Absolute Lymphs (auto) 0.57 L Nucleated RBC % 0 PT 19.3 H INR 1.6 APTT 29.7 Sodium 140 Potassium 3.2 L Chloride 107 Carbon Dioxide 23.0 Anion Gap 10 BUN 33 H Creatinine 3.81 H Estim Creat Clear Calc 19.03 Est GFR (MDRD) Af Amer 15 L Est GFR (MDRD) Non-Af 12 L BUN/Creatinine Ratio 8.7 L Glucose 135 H Lactic Acid 3.5 H* 1.5 Calcium 9.6 Total Bilirubin 1.40 H AST 33 ALT 45 Alkaline Phosphatase 107 Total Protein 6.8 Albumin 2.9 L Globulin 3.9 Albumin/Globulin Ratio 0.7 L Urine Color Yellow Urine Clarity Cloudy Urine pH 5.0 Ur Specific [place] 1.020 Urine Protein 100 H Urine Glucose (UA) Normal Urine Ketones 5 H Urine Occult Blood 250 H Urine Nitrite Negative Urine Bilirubin 3 H Urine Urobilinogen 4 H Ur Leukocyte Esterase 500 H Urine RBC 50-100 SEEN Urine WBC >100 SEEN Ur Squamous Epith Cells 5-10 SEEN Ur Transition Epith Cell 5-10 SEEN Ur Renal Epithelial Cell 10-25 SEEN Amorphous Sediment 2+ Urine Bacteria 3+ Urine Mucus 0 SEEN Urine Yeast 2+ Radiography Diagnostic Testing: Clinical Impression(s) from Imaging Studies Chest X-Ray 02/14/24 11:13 IMPRESSION: Mild atelectasis or inflammation in the left mid and bilateral lower lungs. Electronically Signed: Merlyn Bernal MD at 13:17 EST Reading Location ID and State: [facility] / [place] Tel , Service support , Rhythm Strip Rhythm Strip: Sinus Rhythm Rate: 86 Ectopy: None EKG Initial EKG: Attestation: I personally reviewed and interpreted this EKG as follows: Interpretation: Sinus Rhythm Comments: Normal sinus rhythm at a rate of 86 bpm with first-degree AV block MD interval [address] segments QT/QTc 418/500 Management Discussion w/another healthcare provider: Hospitalist Discharge Plan Triage Chief Complaint: Wound Check ED Provider: Vonda Singh Dx/Rx/DC Orders Clinical Impression: Urinary tract infection, Generalized weakness, ROSELYN (acute kidney injury), Sepsis, Open wound of abdominal wall Prescriptions: No Action pantoprazole 40 mg tablet,delayed release (DR/EC) 40 mg PO DAILY ergocalciferol (vitamin D2) 50,000 UNIT capsule 50,000 unit PO MAZA Patient Comments: take 1 capsule by mouth every week on sundays fluoxetine 20 MG capsule 20 mg PO DAILY Patient Comments: depression rosuvastatin [Crestor] 5 mg Tablet 5 mg PO QHS furosemide 40 mg tablet 20 mg PO DAILY PRN (Reason: diuretic) Renal Caps 1 mg capsule 1 cap PO DAILY albuterol sulfate 90 mcg/actuation aerosol powdr breath activated 2 inh inhalation .000 PRN (Reason: shortness of breath) ammonium lactate [Skin Treatment] 12 % lotion 1 applic topical DAILY PRN (Reason: dry skin) Patient Comments: APPLIES TO LEGS amiodarone 200 mg Tablet 200 mg PO DAILY Qty: 0 0RF sennosides-docusate sodium [Stool Softener-Stimulant Laxat] 8.6-50 mg Tablet 2 tab PO BID PRN (Reason: constipation) Rx Instructions: Available [id number]. Eliquis 5 mg tablet 5 mg PO BID magnesium oxide 400 mg (241.3 mg magnesium) tablet 400 mg PO DAILY Trelegy Ellipta 100-62.5-25 mcg blister with device 1 ea INHALATION DAILY Azo Cranberry 250 mg tablet,chewable 250 mg PO DAILY L.acidoph,saliva-B.bif-S.therm 175 mg Capsule 1 cap PO DAILY Rx Instructions: At least till the patient finishes the antibiotic. Available OTC ferrous sulfate [FeroSul] 325 mg (65 mg iron) tablet 325 mg PO DAILY 30 Days Qty: 0 0RF Primary Care Provider: Sandrine Mireles Referrals: Sandrine Mireles MD [Primary Care Provider] - Print Language: Setswana Disposition Disposition: Acute Care Hospital Discharge Location: [facility] [place]
[2024-02-14 11:36] LABS: POSITIVE DIFFERENTIAL NO
[2024-02-14 11:40] LABS: ALB/GLOB Ratio 0.7 RATIO (0.9-2.4); AST(SGOT) 33 U/L (15-37); Alanine Aminotransfer ALT/SGPT 45 U/L (13-56); Albumin, Serum 2.9 g/dL (3.2-5.0); Alkaline Phosphatase 107 U/L (45-117); Anion Gap 10 (5-15); BUN 33 mg/dL (7-18); BUN/Creat Ratio 8.7 RATIO (10-20); Calcium,Total 9.6 mg/dL (8.5-10.1); Chloride 107 mmol/L (98-107); Creatinine, Serum 3.81 mg/dL (0.55-1.02); EST Glomerular Filtration Rate 12 mL/min (>60); Est Glom Filt Rate - Afr Amer 15 mL/min (>60); Estimated Creatinine Clearance 19.03 ml/min; Globulin 3.9 g/dL (2.2-4.2); Glucose 135 mg/dL (74-106); Potassium 3.2 mmol/L (3.5-5.1); Protein, Total 6.8 g/dL (6.4-8.2); Sodium Level 140 mmol/L (136-145)
[2024-02-14 11:44] LABS: International Normalized Ratio 1.6; Prothrombin Time (Protime)PT. 19.3 SECONDS (11.7-14.9)
[2024-02-14 11:45] LABS: Partial Thromboplast Time 29.7 Seconds (24.1-36.2)
[2024-02-14] MEDS: Acetaminophen 325 MG Tablet 650 MG PO ×2 (11:54→22:34)
--- NOTE | 2024-02-14 12:00 | ED.RN ---
CRITICAL LACTIC of 3.5. Dr. Singh notified.
[2024-02-14 12:01] LABS: Lactic Acid 3.5 mmol/L (0.4-1.9)
[2024-02-14 12:36] LABS: Mucous, Urine 0 SEEN /hpf (<or=2+)
[2024-02-14] MEDS: levoFLOXacin IV 750 MG/150 ML BAG 100 MG IV (12:48)
[2024-02-14 12:49] LABS: Color, Urine Yellow (Yellow); Glucose, Dipstick Normal (Normal); Ketone-Dipstick 5 mg/dl (Negative); Leukocyte Esterase-Dipstick 500 /ul (Negative); Nitrite-Dipstick Negative (Negative); Occult Blood-Urine 250 /ul (Negative); Protein-Dipstick 100 mg/dl (Negative); Urine Clarity Cloudy (Clear); Urine Urobilinogen 4 mg/dl (Normal)
[2024-02-14 12:50] LABS: Urine Bilirubin Dipstick 3 mg/dL (Negative)
[2024-02-14] MEDS: Vancomycin HCl 2,000 MG in 0.9% Normal Saline (500mL Bag) 500 ML 250 MG IV (12:54)
[2024-02-14 13:07] LABS: Amorphous Sediment 2+; Bacteria 3+ /hpf (None Seen); Red Blood Cells-Urine 50-100 SEEN /hpf (0-5); Renal Epithelial Cells 10-25 SEEN /hpf (0-5); Squamous Epithelial Cells - UA 5-10 SEEN /hpf (5-10); Transitional Epithelial - Ur 5-10 SEEN /hpf (0-5); White Blood Cells >100 SEEN /hpf (0-5); Yeast-Urine 2+ /hpf (None Seen)
[2024-02-14 15:11] LABS: Reflex Lactate? Y
[2024-02-14 16:13] LABS: Lactic Acid 1.5 mmol/L (0.4-1.9)
[2024-02-14] MEDS: 0.9% Normal Saline (1000mL) 1,000 ML 100 ML IV (16:48)
--- NOTE | 2024-02-14 17:30 | ED.RN ---
Meal tray ordered
--- NOTE | 2024-02-14 17:57 | ED.RN ---
ACCEPTED AT [facility] @ 2811 OFFICIALLY, JUST WAITING ON A BED ASSIGNMENT
--- NOTE | 2024-02-14 19:12 | ED.RN ---
PT ACCEPTED AT [place] [address] BED 17
--- NOTE | 2024-02-14 20:31 | ED.RN ---
CALLED AND SET UP TRANSPORT FOR PT APPROX [id number]. ASKED NURSES WHAT WAS NEEDED FOR TRANSPORT. CALLED [facility]. RELAYED TO [facility] STATED MONITOR, AND SALINE FLUIDS. MATRHA ASKED IF MONITOR WAS ABSOLETLY NEEDED SINCE VITALS WERE TAKEN THRU OUT TRANSPORT. ANOTHER NURSE SAID SHE THOUGHT PT WOULD BE OK WO MONITOR. BLS CREW ARRIVES, CANNOT TAKE PT DUE TO PHYSICIANS WANTING ALS CREW. TRANSPORT DELAYED TO 2229.
== END 2024-02-14 22:44 | disposition short-term general hospital (02) ==
PROVIDERS: Emergency Provider Emergency Medicine; PCP Internal Medicine; Visit Provider Emergency Medicine
DX: A41.9 Sepsis, unspecified organism (principal); I96 Gangrene, not elsewhere classified; L98.499 Non-pressure chronic ulcer of skin of other sites with unspecified severity; N18.4 Chronic kidney disease, stage 4 (severe); I13.0 Hypertensive heart and chronic kidney disease with heart failure and stage 1 through stage 4 chronic kidney disease, or unspecified chronic kidney disease; I50.30 Unspecified diastolic (congestive) heart failure; J44.9 Chronic obstructive pulmonary disease, unspecified; E66.01 Morbid (severe) obesity due to excess calories; E11.22 Type 2 diabetes mellitus with diabetic chronic kidney disease; E11.628 Type 2 diabetes mellitus with other skin complications; N39.0 Urinary tract infection, site not specified; N17.9 Acute kidney failure, unspecified; J98.11 Atelectasis; I44.0 Atrioventricular block, first degree; I35.0 Nonrheumatic aortic (valve) stenosis; K21.9 Gastro-esophageal reflux disease without esophagitis; F41.9 Anxiety disorder, unspecified; D64.9 Anemia, unspecified; F32.A Depression, unspecified; G47.33 Obstructive sleep apnea (adult) (pediatric); Z88.0 Allergy status to penicillin; Z88.1 Allergy status to other antibiotic agents; Z86.711 Personal history of pulmonary embolism; Z86.718 Personal history of other venous thrombosis and embolism; Z79.899 Other long term (current) drug therapy; Z79.01 Long term (current) use of anticoagulants
CPT/HCPCS: 71045; 80053; 81001; 83605; 85025; 85610; 85730; 87040; 87070; 87077; 87086; 87088; 87186; 87205; 87631; 93005; 96361; 96365; 96366; 96368; 99285; A4216

== ENCOUNTER 2024-02-25 17:13 | Inpatient (IN) | payer MEDICARE, OTHER, SELFPAY ==
[2024-02-25] VITALS (8 sets, daily range): BP systolic 109–166; BP diastolic 41–86; PULSE 80–90; RESP 16–21; TEMP 36.5–36.6; O2SAT 90–95; BMI 52.7
--- NOTE | 2024-02-25 19:08 | EKG12_ITS ---
Test Reason : WEAKNESS Blood Pressure : */* mmHG Vent. Rate : 86 BPM Atrial Rate : 86 BPM P-R Int : 268 ms QRS Dur : 98 ms QT Int : 420 ms P-R-T Axes : 56 2 41 degrees QTcB Int : 502 ms Sinus rhythm with 1st degree A-V block Borderline Confirmed by Martinez Kramer ([id number]), newspaper editor managing FELICIA FERRO ([id number]) on 02/27/2024 9:33:51 AM Referred By: FEMI Confirmed By: Martinez Kramer
--- NOTE | 2024-02-25 19:09 | EX.ED.DYSGE1 ---
HPI History of Present Illness Chief Complaint: Weakness Informant: patient and family Narrative Narrative: Patient is a 78-year-old female with history of COPD, CHF, chronic anticoagulation (on Eliquis), ROSELYN and recent hospitalization for urinary tract infection and generalized weakness as well as abdominal wall wound at [facility] presenting with recurrent weakness. Patient was discharged home 3 days ago. She was treated with a 5-day course of meropenem. Daughter states overall she is doing better reduction a very good day yesterday. Today she has been so weak that she could not really stand up. She is only been drinking some. She has had decreased urine output. Daughter is concerned about possible ROSELYN again. Brought her in for repeat evaluation. Daughter notes that her pannus wound does seem to be improving slightly. She does express concern that patient was only treated with antibiotics for 5 days when she is normally on a 10-day course. Wound culture from 02/13 grew 1+ ESBL and 3+ Pseudomonas. The ESBL was sensitive to meropenem but indeterminant sensitivity to the Pseudomonas. Urine culture from 02/13 showed yeast 25-50,000 CFU's per mL. [facility] Medical History ESBL (extended spectrum beta-lactamase) producing bacteria infection Chronic kidney disease Bacteremia due to Escherichia coli Morbid obesity CKD (chronic kidney disease), stage IV GERD (gastroesophageal reflux disease) History of venous thromboembolism Anxiety and depression Chronic anemia ROBBI treated with BiPAP UTI (urinary tract infection) Abdominal pannus Open abdominal wall wound Type 2 diabetes mellitus Chronic obstructive pulmonary disease with hypoxia Bilateral pulmonary embolism (07/2014) Postoperative atrial fibrillation (06/2014) Essential hypertension Multiple thyroid nodules Osteomyelitis of cervical spine Home Medications ?Medication ?Instructions ?Recorded ?Last Taken ?Type ergocalciferol (vitamin D2) 1,250 50,000 unit PO MAZA SUPPLEMENT 02/25/20 04/15/23 History mcg (50,000 unit) capsule fluoxetine 20 mg capsule 20 mg PO DAILY DEPRESSION 02/25/20 02/25/20 History rosuvastatin 5 mg tablet (Crestor) 5 mg PO QHS cholesterol 01/16/21 Unknown History pantoprazole 40 mg tablet,delayed 40 mg PO DAILY reflux 03/12/21 Unknown History release amiodarone 200 mg tablet 200 mg PO DAILY heart rate #0 tabs 02/26/23 04/15/23 Rx albuterol sulfate 90 mcg/actuation 2 inh inhalation .000 PRN 03/27/23 04/16/23 08:22 History breath activated powder inhaler shortness of breath ammonium lactate 12 % lotion (Skin 1 applic topical DAILY PRN dry skin 03/27/23 Unknown History Treatment) furosemide 40 mg tablet 20 mg PO DAILY PRN diuretic 03/27/23 04/15/23 History vitamin B complex and vitamin C 1 cap PO DAILY vitamin 03/27/23 Unknown History no.20-folic acid 1 mg capsule (Renal Caps) sennosides 8.6 mg-docusate sodium 2 tab PO BID PRN constipation 06/25/23 Unknown History 50 mg tablet (Stool Softener-Stimulant Laxative) L.acidophil,salivari-Bifido 1 cap PO DAILY 01/28/24 Unknown History bifidum-Strep thermoph 175 mg capsule apixaban 5 mg tablet (Eliquis) 5 mg PO BID 01/28/24 Unknown History cranberry fruit concentrate 250 mg 250 mg PO DAILY 01/28/24 Unknown History chewable tablet (Azo Cranberry) fluticasone fur. 100 mcg-umeclid 1 ea inhalation DAILY 01/28/24 Unknown History 62.5 mcg-vilant 25 mcg inhalat.powder (Trelegy Ellipta) Allergy/AdvReac Type Severity Reaction Status Date / Time piperacillin (From Zosyn) Allergy Mild Angioedema Verified 02/25/24 17:22 tazobactam (From Zosyn) Allergy Mild Angioedema Verified 02/25/24 17:22 aspartame Allergy EDEMA Verified 02/25/24 17:22 ibuprofen Allergy Shortness Verified 02/25/24 17:22 of breath oxycodone HCl (From Percocet) Allergy dizziness Verified 02/25/24 17:22 procaine (From Novocain) Allergy Other Verified 02/25/24 17:22 Family History Father Diabetes Mother CAD (coronary artery disease) Heart disease Hypertension Myocardial infarction Surgical History History of spinal fusion History of cholecystectomy History of Social History household members: family Smoking Status: Never smoker alcohol intake: never substance use type: does not use ROS ROS ED Constitutional Constitutional ED: Reports other Details: Fatigue, weakness Respiratory/Chest Respiratory/Chest: Denies cough or dyspnea Gastrointestinal Gastrointestinal: Reports abdominal pain; Denies nausea or vomiting Genitourinary Genitourinary ED: Reports other Details: Decreased urination Integumentary Reports other Details: Pannus wound Hematologic/Lymphatic Hematologic/Lymphatic: Reports easy bleeding, easy bruising and other Details: On Eliquis EXAM Physical Exam Const Vital Signs: 02/25/24 17:17 02/25/24 17:20 02/25/24 18:15 Temperature 97.7 F L 97.7 F L Temperature Source Oral Oral Pulse Rate 88 89 Respiratory Rate 18 18 Respiratory Effort Normal Non-Labored Blood Pressure 109/41 L 109/41 L Blood Pressure Mean 63 63 Pulse Ox 92 94 Oxygen Delivery Method Room Air Room Air 02/25/24 19:01 02/25/24 20:20 02/25/24 21:00 Temperature 98 F 97.9 F Temperature Source Oral Temporal Pulse Rate 87 90 80 Respiratory Rate 16 16 20 H Respiratory Effort Blood Pressure 141/86 H 135/64 H 166/70 H Blood Pressure Mean 104 87 102 Pulse Ox 93 95 91 Oxygen Delivery Method Room Air Room Air Room Air 02/25/24 22:00 02/25/24 23:00 02/25/24 23:51 Temperature 98 F 97.8 F 97.8 F Temperature Source Temporal Temporal Pulse Rate 87 81 81 Respiratory Rate 19 H 21 H 19 H Respiratory Effort Blood Pressure 150/56 H 114/52 L 153/63 H Blood Pressure Mean 87 72 93 Pulse Ox 92 90 92 Oxygen Delivery Method Room Air Room Air Positive obese Constitutional Narrative: Chronically ill-appearing General Appearance ED: NAD Nutritional Appearance: obese HEENT Reports dry mucous membranes Mouth ED: Yes dry mucous membranes Mouth: dry mucous membranes Eyes PERRL Neck supple and no JVD Chest Wall inspection of chest normal Resp normal respiratory effort and clear to auscultation bilaterally Cardio regular rate and regular rhythm Cardio Narrative: Murmur present GI normal to inspection, nondistended, normoactive bowel sounds and non-tender Extremity General Extremety ED: Yes edema General Extremity: edema Neuro oriented x3 Sensorium / Orientation: alert Motor Exam: general weakness Psych mental status grossly normal Skin Skin Narrative: Patient has a significantly large pannus. On the underside of it there is approximately 7 cm x 5 cm ulcerated wound. There is granulation tissue on the inferior aspect of it. There is mild associated induration and thickening of the pannus more diffusely. There is some mild erythema. No associated fluctuance. MDM MDM MDM Narrative Medical decision making narrative: Patient evaluated for increased weakness in the setting of recent hospitalizations for recurrent UTIs. She has follow-up with Dr. Alfonso for wound care and is planning on going back to him. She was just discharged from [facility] 02/22/24. Upon arrival patient is generally weak. Blood pressure soft but she is normotensive. She is 90 to 93% on room air when she falls asleep she goes down to around 88. Daughter states this is normal for her. Wound appears less necrotic than it did before. Chart review shows that on 02/20 the patient's white blood cell count was 5.3, hemoglobin 10.2 with platelets of 127. Her sodium was 144, potassium 3.5 and creatinine of 1.36 with a BUN of 17. Patient was treated with a 5-day course of linezolid and meropenem. Patient now has worsening leukocytosis of 15.3, her creatinine is back up to 2.19 and her lactate is 2.2. She has a left shift of 1.8% immature granulocytes. Urinalysis shows 2+ bacteria with 500 leukocyte esterase and 25-50 white blood cells. I am not sure if her source today is urine or her wound. CT of the chest abdomen pelvis obtained as she is also had a chest x-rays with questionable infiltrate versus atelectasis and to see if there is an abdominal abscess or further source of infection and her recurrent deterioration. CT of the abdomen pelvis is consistent with extensive inflammatory stranding and skin thickening consistent with panniculitis with no discrete abscess. No other acute changes. I do think patient will require admission. Review of prior wound culture shows that she likely was not effectively treated again Pseudomonas and will start her on Levaquin. Family is interested in her being admitted at our hospital at this time especially so she can follow with Dr. Alfonso. Will contact hospitalist. Discussed with Dr. Plascencia, hospitalist. Given patient's medical complexity and that her care has been through [facility] he feels that she be better suited back at the clinic. He also is concerned that if patient were to require any surgery or debridement she is too medically complex and we could not perform that here. Will speak to clinically transfer line. Family is aware. Lab Data Labs: Laboratory Results - last 24 hr 02/25/24 02/25/24 19:36 20:12 WBC 15.3 H RBC 4.37 Hgb 12.7 Hct 39.4 MCV 90.2 MCH 29.1 MCHC 32.2 RDW Std Deviation 51.9 H RDW Coeff of Ruben 16.1 H Plt Count 181 MPV 11.1 Immature Gran % (Auto) 1.800 H Neut % (Auto) 80.9 H Lymph % (Auto) 6.0 L [place] % (Auto) 8.9 Eos % (Auto) 1.6 Baso % (Auto) 0.8 Absolute Neuts (auto) 12.3 H Absolute Lymphs (auto) 0.92 Nucleated RBC % 0 Sodium 140 Potassium 3.6 Chloride 102 Carbon Dioxide 29.0 Anion Gap 8 BUN 26 H Creatinine 2.19 H Estim Creat Clear Calc 33.32 Est GFR (MDRD) Af Amer 28 L Est GFR (MDRD) Non-Af 23 L BUN/Creatinine Ratio 11.9 Glucose 89 Lactic Acid 2.2 H* Calcium 9.9 Total Bilirubin 1.40 H AST 37 ALT 40 Alkaline Phosphatase 94 Total Protein 6.8 Albumin 2.8 L Globulin 4.0 Albumin/Globulin Ratio 0.7 L Urine Color Yellow Urine Clarity Cloudy Urine pH 5.0 Ur Specific [place] 1.020 Urine Protein 30 H Urine Glucose (UA) Normal Urine Ketones 15 H Urine Occult Blood 250 H Urine Nitrite Negative Urine Bilirubin 3 H Urine Urobilinogen 4 H Ur Leukocyte Esterase 500 H Urine RBC 10-25 SEEN Urine WBC 25-50 SEEN Ur Squamous Epith Cells 5-10 SEEN Urine Bacteria 2+ Urine Mucus 0 SEEN Urine Yeast 2+ Radiography Diagnostic Testing: Clinical Impression(s) from Imaging Studies Chest X-Ray 02/25/24 19:55 IMPRESSION: 1. Apparent cardiomegaly and/or pericardial effusion. 2. Bibasilar pulmonary opacities may be atelectasis or pneumonia. Suspect bilateral pleural effusions. 3. Postoperative changes in the lower thoracic spine and visualized upper lumbar spine correlating with the prior examination. 4. Hyperinflated lungs with diffuse interstitial prominence likely indicative of COPD. Electronically Signed: Jose Sol DO at 20:55 EST , Chest/Abdomen/Pelvis CT 02/25/24 21:32 IMPRESSION: 1. Trace pericardial effusion and mild cardiomegaly. Coronary artery calcifications. 2. Trace right pleural effusion and patchy pulmonary opacities in the basilar lungs are most consistent with atelectasis rather than pneumonia. The lung apices are partially excluded from the imaged field of view. 3. Large pannus with extensive inflammatory stranding and skin thickening consistent with panniculitis. No discrete abscess. 4. Partial corpectomy change of L1 with T10-L4 spinal fusion and L1 laminectomy change. Additional degenerative changes in the spine. No acute osseous findings. 5. Right renal pelvic stone measuring 1.4 cm an additional right renal calyceal stones without hydronephrosis. Bilateral renal cortical thinning. 6. Significant rectus diastases with peritoneal structures extending 22 cm inferior to the pubic symphysis anteriorly. Electronically Signed: Jose Sol DO at 23:05 EST , Rhythm Strip Rhythm Strip: Sinus Rhythm Rate: 86 Ectopy: None EKG Initial EKG: Attestation: I personally reviewed and interpreted this EKG as follows: Interpretation: Sinus Rhythm Comments: Normal sinus rhythm at a rate of 86 bpm with first AV block MA interval 268 Normal axis Prolonged QTc at [address] segments Management Discussion w/another healthcare provider: Hospitalist Discharge Plan Triage Chief Complaint: Weakness ED Provider: Vonda Singh Dx/Rx/DC Orders Prescriptions: No Action pantoprazole 40 mg tablet,delayed release (DR/EC) 40 mg PO DAILY ergocalciferol (vitamin D2) 50,000 UNIT capsule 50,000 unit PO MAZA Patient Comments: take 1 capsule by mouth every week on sundays fluoxetine 20 MG capsule 20 mg PO DAILY Patient Comments: depression rosuvastatin [Crestor] 5 mg Tablet 5 mg PO QHS furosemide 40 mg tablet 20 mg PO DAILY PRN (Reason: diuretic) Renal Caps 1 mg capsule 1 cap PO DAILY albuterol sulfate 90 mcg/actuation aerosol powdr breath activated 2 inh inhalation .000 PRN (Reason: shortness of breath) ammonium lactate [Skin Treatment] 12 % lotion 1 applic topical DAILY PRN (Reason: dry skin) Patient Comments: APPLIES TO LEGS amiodarone 200 mg Tablet 200 mg PO DAILY Qty: 0 0RF sennosides-docusate sodium [Stool Softener-Stimulant Laxat] 8.6-50 mg Tablet 2 tab PO BID PRN (Reason: constipation) Rx Instructions: Available [id number]. Eliquis 5 mg tablet 5 mg PO BID Trelegy Ellipta 100-62.5-25 mcg blister with device 1 ea INHALATION DAILY Azo Cranberry 250 mg tablet,chewable 250 mg PO DAILY L.acidoph,saliva-B.bif-S.therm 175 mg Capsule 1 cap PO DAILY Rx Instructions: At least till the patient finishes the antibiotic. Available OTC Primary Care Provider: Sandrine Mireles Referrals: Sandrine Mireles MD [Primary Care Provider] - Print Language: Kosovan
[2024-02-25 19:48] LABS: Absolute Lymphocyte Count 0.92 X10^3/uL (0.83-4.51); Absolute Neutrophil Count 12.3 X10^3/uL (2.0-7.7); Basophil# 0.12 X10^3/uL; Basophil% 0.8 % (0-1); Eosinophil# 0.25 X10^3/uL; Eosinophils% 1.6 % (0-5); Hematocrit 39.4 % (37-47); Hemoglobin 12.7 g/dL (12.0-15.0); Lymphocyte # 0.92 X10^3/ul (0.83-4.51); Mean Corp Hgb Conc 32.2 g/dL (32-36); Mean Corpuscular Hgb 29.1 pg (27.0-32.0); Mean Corpuscular Volume 90.2 fL (81-99); Mean Platelet Vol. 11.1 fl (6.2-12.0); Monocyte# 1.36 X10^3/uL; Monocyte% 8.9 % (0-10); NRBC Flagged by Analyzer 0 % (0-5); Neutrophil # 12.33 X10^3/uL (2.7-7.7); Neutrophil % 80.9 % (47-70); Platelet Count 181 K/mm3 (150-450); RBC Distribution Width CV 16.1 % (11.6-14.6); RBC Distribution Width SD 51.9 fl (35.1-43.9); Red Blood Count 4.37 M/mm3 (4.2-5.4); White Blood Count 15.3 K/mm3 (4.4-11.0)
--- NOTE | 2024-02-25 19:55 | RAD_ITS ---
EXAM: XR CHEST, 2 VIEWS CLINICAL INDICATION: weakness TECHNIQUE: Frontal and lateral views of the chest. COMPARISON: 02/14/2024 FINDINGS: LUNGS AND PLEURAL SPACES: Bibasilar pulmonary opacities may be atelectasis or pneumonia. Suspect bilateral pleural effusions. Hyperinflated lungs with diffuse interstitial prominence likely indicative of COPD. No pneumothorax. HEART: Apparent cardiomegaly and/or pericardial effusion. MEDIASTINUM: Central airways and mediastinal contour are unremarkable. BONES/JOINTS: Postoperative changes in the lower thoracic spine and visualized upper lumbar spine correlating with the prior examination. No acute fracture. SOFT TISSUES: No significant abnormality. RAD/Chest PA and Lateral IMPRESSION: 1. Apparent cardiomegaly and/or pericardial effusion. 2. Bibasilar pulmonary opacities may be atelectasis or pneumonia. Suspect bilateral pleural effusions. 3. Postoperative changes in the lower thoracic spine and visualized upper lumbar spine correlating with the prior examination. 4. Hyperinflated lungs with diffuse interstitial prominence likely indicative of COPD. Electronically Signed: Jose Sol DO at 20:55 EST ,
[2024-02-25 20:13] LABS: ALB/GLOB Ratio 0.7 RATIO (0.9-2.4); AST(SGOT) 37 U/L (15-37); Alanine Aminotransfer ALT/SGPT 40 U/L (13-56); Albumin, Serum 2.8 g/dL (3.2-5.0); Alkaline Phosphatase 94 U/L (45-117); Anion Gap 8 (5-15); BUN 26 mg/dL (7-18); BUN/Creat Ratio 11.9 RATIO (10-20); Calcium,Total 9.9 mg/dL (8.5-10.1); Chloride 102 mmol/L (98-107); Creatinine, Serum 2.19 mg/dL (0.55-1.02); EST Glomerular Filtration Rate 23 mL/min (>60); Est Glom Filt Rate - Afr Amer 28 mL/min (>60); Estimated Creatinine Clearance 33.32 ml/min; Glucose 89 mg/dL (74-106); Potassium 3.6 mmol/L (3.5-5.1); Protein, Total 6.8 g/dL (6.4-8.2); Sodium Level 140 mmol/L (136-145)
--- NOTE | 2024-02-25 20:16 | CM.ED ---
Social Work SW spoke with patients daughter as patient was receiving care. SW asked patients daughter how she felt herself and patient were doing at home as the last few times they had been to ED, EMS had concerns regarding safety in the home. Daughter stated that they were doing better, that the city was working with them to help clean up their house. Daughter states that the process is slow due to patient being in and out of the hospital but that she appreciated the help she was receiving. SW offered additional resources in home, daughter declined. No further needs identified at this time. Beatriz Alex, OPERATIONS SUPERVISOR [employer], [employer]
[2024-02-25 20:30] LABS: Mucous, Urine 0 SEEN /hpf (<or=2+)
[2024-02-25 20:32] LABS: Lactic Acid 2.2 mmol/L (0.4-1.9)
[2024-02-25 20:40] LABS: Color, Urine Yellow (Yellow); Glucose, Dipstick Normal (Normal); Ketone-Dipstick 15 mg/dl (Negative); Leukocyte Esterase-Dipstick 500 /ul (Negative); Nitrite-Dipstick Negative (Negative); Occult Blood-Urine 250 /ul (Negative); Protein-Dipstick 30 mg/dl (Negative); Urine Clarity Cloudy (Clear); Urine Urobilinogen 4 mg/dl (Normal)
[2024-02-25 20:42] LABS: Urine Bilirubin Dipstick 3 mg/dL (Negative)
[2024-02-25 20:48] LABS: Bacteria 2+ /hpf (None Seen); Red Blood Cells-Urine 10-25 SEEN /hpf (0-5); Squamous Epithelial Cells - UA 5-10 SEEN /hpf (5-10); White Blood Cells 25-50 SEEN /hpf (0-5); Yeast-Urine 2+ /hpf (None Seen)
--- NOTE | 2024-02-25 21:32 | CT_ITS ---
EXAM: CT CHEST, ABDOMEN AND PELVIS WITHOUT INTRAVENOUS CONTRAST CLINICAL INDICATION: worsening leukocytosis, pannus wound vs pneumonia TECHNIQUE: Helically acquired images were obtained of the chest, abdomen and pelvis without intravenous contrast. This CT exam was performed using one or more of the following dose reduction techniques: automated exposure control, adjustment of the mA and/or kV according to patient size, and/or use of iterative reconstruction technique. COMPARISON: Chest radiograph on the same date. CTA chest, CT 15. FINDINGS: CHEST: LUNGS AND PLEURAL SPACES: Trace right pleural effusion and patchy pulmonary opacities in the basilar lungs are most consistent with atelectasis rather than pneumonia. No mass. HEART: Trace pericardial effusion and mild cardiomegaly. Coronary artery calcifications. MEDIASTINUM: No significant abnormality. No mediastinal or hilar adenopathy. Esophagus is unremarkable. No hiatal hernia. THYROID: No significant abnormality. No thyroid lesions. ABDOMEN: LIVER: No significant abnormality. Homogeneous. GALLBLADDER AND BILE DUCTS: Not distinctly visualized. Possible cholecystectomy versus decompression. No intra- or extrahepatic biliary ductal dilation. PANCREAS: No significant abnormality. No focal cystic mass. SPLEEN: No significant abnormality. Normal size without focal cystic or solid mass. ADRENALS: No significant abnormality. No nodules. KIDNEYS AND URETERS: Right renal pelvic stone measuring 1.4 cm an additional right renal calyceal stones without hydronephrosis. Bilateral renal cortical thinning. STOMACH AND BOWEL: No significant abnormality. No stomach or bowel distention. No focal inflammatory change. PELVIS: APPENDIX: No evidence of acute appendicitis. BLADDER: No intrinsic urinary bladder pathology. The bladder prolapses anterior to the pubic symphysis. REPRODUCTIVE: Normal as visualized. No mass. CHEST, ABDOMEN and PELVIS: INTRAPERITONEAL SPACE: No free fluid. No free air. BONES/JOINTS: Partial corpectomy change of L1 with T10-L4 spinal fusion and L1 laminectomy change. Additional degenerative changes in the spine. No acute osseous findings. No suspicious lytic or blastic abnormality. SOFT TISSUES: Large pannus with extensive inflammatory stranding and skin thickening consistent with panniculitis. No discrete abscess. Significant rectus diastases with peritoneal structures extending 22 cm inferior to the pubic symphysis anteriorly. VASCULATURE: Atherosclerosis of the aorta and its branch vessels. Aorta is non-dilated. LYMPH NODES: No significant abnormality. No enlarged lymph nodes. CT/CT Chest, Abd, Pelvis WO Cont IMPRESSION: 1. Trace pericardial effusion and mild cardiomegaly. Coronary artery calcifications. 2. Trace right pleural effusion and patchy pulmonary opacities in the basilar lungs are most consistent with atelectasis rather than pneumonia. The lung apices are partially excluded from the imaged field of view. 3. Large pannus with extensive inflammatory stranding and skin thickening consistent with panniculitis. No discrete abscess. 4. Partial corpectomy change of L1 with T10-L4 spinal fusion and L1 laminectomy change. Additional degenerative changes in the spine. No acute osseous findings. 5. Right renal pelvic stone measuring 1.4 cm an additional right renal calyceal stones without hydronephrosis. Bilateral renal cortical thinning. 6. Significant rectus diastases with peritoneal structures extending 22 cm inferior to the pubic symphysis anteriorly. Electronically Signed: Jose Sol DO at 23:05 EST ,
[2024-02-25] MEDS: 0.9% Normal Saline (1000mL) 1,000 ML 150 ML IV (22:32)
[2024-02-25 23:42] LABS: Reflex Lactate? Y
[2024-02-25] MEDS: Meropenem 2 GM in 0.9% Normal Saline (100mL Bag) 100 ML IV (23:51)
[2024-02-26] VITALS (14 sets, daily range): BP systolic 91–146; BP diastolic 46–86; PULSE 75–88; RESP 16–22; TEMP 36.6–37; O2SAT 93–99; BMI 51.5
[2024-02-26 00:24] LABS: Lactic Acid 1.4 mmol/L (0.4-1.9)
[2024-02-26] MEDS: levoFLOXacin IV 750 MG/150 ML BAG 100 MG IV (01:29)
[2024-02-26 07:19] LABS: Bedside Glucose 76 mg/dL (74-106)
--- NOTE | 2024-02-26 07:43 | ED.RN ---
called [facility] at 0740 for bed update as patient was accepted at 0120 but waiting bed. No beds available at this time and unknown when bed will be available.
--- NOTE | 2024-02-26 08:31 | PCM.HP.STD ---
HPI - General General Date of Admission: 02/26/24 Date of Service: 02/26/24 Chief Complaint: Panniculitis HPI Narrative CLAIRE PIRES, is a 78-year-old female history of COPD, depression, GERD, morbid obesity, ROBBI, CKD, abdominal wall abscess with history of I&D and antibiotic treatment who presented [facility] 02/26/2024 due to worsening erythema of pannus. She has history of abdominal wall I&D and antibiotics through [facility] which ultimately healed but she has developed another wound under her pannus for which she follows with the wound center. Was at [facility] recently was treated on 5 days of Merrem for UTI and discharged home. Since that time her cellulitis of pannus has continued to worsen prompting her to come to the emergency department. In the ED she is found to have white blood cell count of 15.3 w/ left shift, creatinine 2.[address] chest/abdomen/pelvis showed trace pericardial effusion, coronary artery calcifications, trace right pleural effusion and patchy pulmonary opacities most consistent with atelectasis, large pannus with extensive fluid inflammatory stranding and skin thickening consistent with panniculitis without discrete abscess. Given patient's complex nature and often receiving care at [facility] it was felt that she would be best served at [facility] tertiary facility so initiation transferred. Patient received meropenem and Levaquin in the ED in the meantime due to a wound culture from the showing ESBL and Pseudomonas. Hospitalist contacted to admit while awaiting a bed due to prolonged ED wait time. [facility] Medical History ESBL (extended spectrum beta-lactamase) producing bacteria infection Chronic kidney disease Bacteremia due to Escherichia coli Morbid obesity CKD (chronic kidney disease), stage IV GERD (gastroesophageal reflux disease) History of venous thromboembolism Anxiety and depression Chronic anemia ROBBI treated with BiPAP UTI (urinary tract infection) Abdominal pannus Open abdominal wall wound Type 2 diabetes mellitus Chronic obstructive pulmonary disease with hypoxia Bilateral pulmonary embolism (07/2014) Postoperative atrial fibrillation (06/2014) Essential hypertension Multiple thyroid nodules Osteomyelitis of cervical spine Home Medications ?Medication ?Instructions ?Recorded ?Last Taken ?Type ergocalciferol (vitamin D2) 1,250 50,000 unit PO MAZA SUPPLEMENT 02/25/20 04/15/23 History mcg (50,000 unit) capsule fluoxetine 20 mg capsule 20 mg PO DAILY DEPRESSION 02/25/20 02/25/20 History rosuvastatin 5 mg tablet (Crestor) 5 mg PO QHS cholesterol 01/16/21 Unknown History pantoprazole 40 mg tablet,delayed 40 mg PO DAILY reflux 03/12/21 Unknown History release amiodarone 200 mg tablet 200 mg PO DAILY heart rate #0 tabs 02/26/23 04/15/23 Rx albuterol sulfate 90 mcg/actuation 2 inh inhalation .000 PRN 03/27/23 04/16/23 08:22 History breath activated powder inhaler shortness of breath ammonium lactate 12 % lotion (Skin 1 applic topical DAILY PRN dry skin 03/27/23 Unknown History Treatment) furosemide 40 mg tablet 20 mg PO DAILY PRN diuretic 03/27/23 04/15/23 History vitamin B complex and vitamin C 1 cap PO DAILY vitamin 03/27/23 Unknown History no.20-folic acid 1 mg capsule (Renal Caps) sennosides 8.6 mg-docusate sodium 2 tab PO BID PRN constipation 06/25/23 Unknown History 50 mg tablet (Stool Softener-Stimulant Laxative) L.acidophil,salivari-Bifido 1 cap PO DAILY 01/28/24 Unknown History bifidum-Strep thermoph 175 mg capsule apixaban 5 mg tablet (Eliquis) 5 mg PO BID 01/28/24 Unknown History cranberry fruit concentrate 250 mg 250 mg PO DAILY 01/28/24 Unknown History chewable tablet (Azo Cranberry) fluticasone fur. 100 mcg-umeclid 1 ea inhalation DAILY 01/28/24 Unknown History 62.5 mcg-vilant 25 mcg inhalat.powder (Trelegy Ellipta) Allergy/AdvReac Type Severity Reaction Status Date / Time piperacillin (From Zosyn) Allergy Mild Angioedema Verified 02/25/24 17:22 tazobactam (From Zosyn) Allergy Mild Angioedema Verified 02/25/24 17:22 aspartame Allergy EDEMA Verified 02/25/24 17:22 ibuprofen Allergy Shortness Verified 02/25/24 17:22 of breath oxycodone HCl (From Percocet) Allergy dizziness Verified 02/25/24 17:22 procaine (From Novocain) Allergy Other Verified 02/25/24 17:22 Family History Father Diabetes Mother CAD (coronary artery disease) Heart disease Hypertension Myocardial infarction Surgical History History of spinal fusion History of cholecystectomy History of Social History household members: family Smoking Status: Never smoker alcohol intake: never substance use type: does not use ROS ROS Narrative General: Denies fever/chills HENT: Denies headache, denies stuffy nose, denies sore throat EYES: Denies changes in vision Resp: Denies cough, denies shortness of breath Cardiac: Denies chest pain GI: Denies abdominal pain, denies changes in bowel, denies nausea/vomiting : Denies changes in urination Extremity: Denies swelling MSK: Denies weakness Neuro: Denies any numbness/tingling Heme: Denies any bleeding or bruising Skin: Increasing erythema over pannus Psychiatric: No complaints voiced Vital Signs Vital Signs Vital Signs: 02/25/24 17:17 02/25/24 17:20 02/25/24 18:15 Temperature 97.7 F L 97.7 F L Temperature Source Oral Oral Pulse Rate 88 89 Respiratory Rate 18 18 Respiratory Effort Normal Non-Labored Blood Pressure 109/41 L 109/41 L Blood Pressure Mean 63 63 Pulse Ox 92 94 Oxygen Delivery Method Room Air Room Air Oxygen Flow Rate (L/min) 02/25/24 19:01 02/25/24 20:20 02/25/24 21:00 Temperature 98 F 97.9 F Temperature Source Oral Temporal Pulse Rate 87 90 80 Respiratory Rate 16 16 20 H Respiratory Effort Blood Pressure 141/86 H 135/64 H 166/70 H Blood Pressure Mean 104 87 102 Pulse Ox 93 95 91 Oxygen Delivery Method Room Air Room Air Room Air Oxygen Flow Rate (L/min) 02/25/24 22:00 02/25/24 23:00 02/25/24 23:51 Temperature 98 F 97.8 F 97.8 F Temperature Source Temporal Temporal Pulse Rate 87 81 81 Respiratory Rate 19 H 21 H 19 H Respiratory Effort Blood Pressure 150/56 H 114/52 L 153/63 H Blood Pressure Mean 87 72 93 Pulse Ox 92 90 92 Oxygen Delivery Method Room Air Room Air Oxygen Flow Rate (L/min) 02/26/24 00:00 02/26/24 01:00 02/26/24 02:00 Temperature 97.8 F 98 F 98.1 F Temperature Source Temporal Oral Oral Pulse Rate 80 79 78 Respiratory Rate 19 H 18 19 H Respiratory Effort Blood Pressure 140/63 H 143/85 H 146/71 H Blood Pressure Mean 88 104 96 Pulse Ox 97 98 95 Oxygen Delivery Method Nasal Cannula Nasal Cannula Nasal Cannula Oxygen Flow Rate (L/min) 2 2 02/26/24 03:00 02/26/24 04:00 02/26/24 05:00 Temperature 98.1 F 98.3 F 98.2 F Temperature Source Oral Oral Oral Pulse Rate 75 76 75 Respiratory Rate 19 H 19 H 19 H Respiratory Effort Blood Pressure 117/56 L 136/58 H 127/46 H Blood Pressure Mean 76 84 73 Pulse Ox 95 95 93 Oxygen Delivery Method Room Air Nasal Cannula Nasal Cannula Oxygen Flow Rate (L/min) 2 3 02/26/24 07:00 Temperature Temperature Source Pulse Rate 79 Respiratory Rate 16 Respiratory Effort Blood Pressure 129/53 H Blood Pressure Mean 78 Pulse Ox 98 Oxygen Delivery Method Oxygen Flow Rate (L/min) Weight Weight: 152.9 kg Body Mass Index (BMI) 52.7 Physical Exam Narrative General: Alert, oriented, no apparent distress HEENT: Atraumatic, normocephalic Eyes: Anicteric, normal conjunctiva, extraocular movements grossly intact Neck: Supple Respiratory: Diminished bilaterally, normal respiratory effort Cardiovascular: Regular rate and rhythm GI: Soft, nontender, nondistended Extremities: No significant pitting edema Musculoskeletal: Moving all extremities Neuro: No overt focal neurological deficits Skin: Significant pannus induration and erythema Psych: Cooperative Results Lab / Micro Data 02/25/24 19:36 02/25/24 19:36 Labs: Laboratory Results - last 24 hr 02/25/24 19:36: WBC 15.3 H, RBC 4.37, Hgb 12.7, Hct 39.4, MCV 90.2, MCH 29.1, MCHC 32.2, RDW Std Deviation 51.9 H, RDW Coeff of Ruben 16.1 H, Plt Count 181, MPV 11.1, Immature Gran % (Auto) 1.800 H, Neut % (Auto) 80.9 H, Lymph % (Auto) 6.0 L, [place] % (Auto) 8.9, Eos % (Auto) 1.6, Baso % (Auto) 0.8, Absolute Neuts (auto) 12.3 H, Absolute Lymphs (auto) 0.92, Nucleated RBC % 0, Sodium 140, Potassium 3.6, Chloride 102, Carbon Dioxide 29.0, Anion Gap 8, BUN 26 H, Creatinine 2.19 H, Estim Creat Clear Calc 33.32, Est GFR (MDRD) Af Amer 28 L, Est GFR (MDRD) Non-Af 23 L, BUN/Creatinine Ratio 11.9, Glucose 89, Lactic Acid 2.2 H*, Calcium 9.9, Total Bilirubin 1.40 H, AST 37, ALT 40, Alkaline Phosphatase 94, Total Protein 6.8, Albumin 2.8 L, Globulin 4.0, Albumin/Globulin Ratio 0.7 L 02/25/24 20:12: Urine Color Yellow, Urine Clarity Cloudy, Urine pH 5.0, Ur Specific [place] 1.020, Urine Protein 30 H, Urine Glucose (UA) Normal, Urine Ketones 15 H, Urine Occult Blood 250 H, Urine Nitrite Negative, Urine Bilirubin 3 H, Urine Urobilinogen 4 H, Ur Leukocyte Esterase 500 H, Urine RBC 10-25 SEEN, Urine WBC 25-50 SEEN, Ur Squamous Epith Cells 5-10 SEEN, Urine Bacteria 2+, Urine Mucus 0 SEEN, Urine Yeast 2+ 02/25/24 23:50: Lactic Acid 1.4 02/26/24 06:59: POC Glucose 76 Rhythm Strip Rhythm Strip: Sinus Rhythm Rate: 86 Ectopy: None Imaging Radiology Impression Chest X-Ray 02/25/24 19:55 IMPRESSION: 1. Apparent cardiomegaly and/or pericardial effusion. 2. Bibasilar pulmonary opacities may be atelectasis or pneumonia. Suspect bilateral pleural effusions. 3. Postoperative changes in the lower thoracic spine and visualized upper lumbar spine correlating with the prior examination. 4. Hyperinflated lungs with diffuse interstitial prominence likely indicative of COPD. Electronically Signed: Jose Sol DO at 20:55 EST , Chest/Abdomen/Pelvis CT 02/25/24 21:32 IMPRESSION: 1. Trace pericardial effusion and mild cardiomegaly. Coronary artery calcifications. 2. Trace right pleural effusion and patchy pulmonary opacities in the basilar lungs are most consistent with atelectasis rather than pneumonia. The lung apices are partially excluded from the imaged field of view. 3. Large pannus with extensive inflammatory stranding and skin thickening consistent with panniculitis. No discrete abscess. 4. Partial corpectomy change of L1 with T10-L4 spinal fusion and L1 laminectomy change. Additional degenerative changes in the spine. No acute osseous findings. 5. Right renal pelvic stone measuring 1.4 cm an additional right renal calyceal stones without hydronephrosis. Bilateral renal cortical thinning. 6. Significant rectus diastases with peritoneal structures extending 22 cm inferior to the pubic symphysis anteriorly. Electronically Signed: Jose Sol DO at 23:05 EST , Assessment & Plan Assessment/Plan (1) Panniculitis: PLAN: Plan # Extensive pannicular inflammation -Recent wound culture from abdominal wound with Pseudomonas and ESBL E. coli -Patient had been on Merrem but Pseudomonas with only intermediate sensitivity -Will continue patient on Merrem for the ESBL but add Levaquin for the Pseudomonas -If patient will have prolonged stay at our institution will consult infectious disease # CKD stage III b -Appears to be at baseline -Avoid nephrotoxic agents -Daily BMPs # History of VTE -Continue Eliquis # COPD -Continue home inhalers -Incentive spirometry #Depression/anxiety -Continue home medications #GERD -Continue PPI #ROBBI -Continue home NIPPV if applicable #Morbid obesity -BMI documented as 52.8 kg/m? at time of admission -Complicates treatment, prognosis, outcomes -Recommend weight loss and lifestyle changes #DVT ppx: On Eliquis Jenna Dyer MD Time spent in the patient's overall evaluation, decision-making process, review of diagnostic data, adjustment of management, discussion with other providers, nursing and ancillary staff involved in patient's care documentation, 56 Minutes Charges/Coding Visit Charges Inpatient E&M: 50518 Init Hosp L2
[2024-02-26] MEDS: FLUoxetine 20 MG Capsule PO (11:19)
[2024-02-26] MEDS: APIXABAN 5 MG TABLET PO ×2 (11:19→21:03)
[2024-02-26] MEDS: Amiodarone 200 MG Tablet PO (11:20)
[2024-02-26] MEDS: Pantoprazole Sodium 40 MG Tablet PO (11:20)
[2024-02-26] MEDS: Meropenem 2 GM in 0.9% Normal Saline (100mL Bag) 100 ML IV ×2 (13:18→21:03)
--- NOTE | 2024-02-26 13:37 | WOUNDNOTE ---
wound photo: abdominal fold (under pannus)
[2024-02-26 13:46] LABS: M R Staph aureus DNA By PCR Negative (Negative); Probe Check PASS; Specimen Processing Control PASS; Staph aureus DNA By PCR NEGATIVE (Negative)
--- NOTE | 2024-02-26 14:42 | EX.PCM.CON.S ---
Assessment & Plan Assessment/Plan (1) Panniculitis: PLAN: There is some cellulitis surrounding the wound, but no fluid collections (2) Skin ulcer of abdominal wall with fat layer exposed: PLAN: Patient has worsening of abdominal wound secondary to maceration and pressure In order to provide better wound care, the eschar and necrotic subcutaneous tissue and dermis was debrided today *(please see separate operative note). Continue Dakin's wet-to-dry 3 times per day, with care taken to keep the other skin on the pannus dry. Plastic surgery will follow while in house, otherwise follow-up in the wound care center when patient is back in [facility] HPI Consult Data Date of Consult: 02/26/24 HPI Narrative HPI Narrative: Chief Complaint: Abdominal wound History of Wound: Nerissa Bradley is a 77-year-old female who presents to the wound healing center today for evaluation management of an abdominal wound. This wound is located in the midline under her pannus. She does have a very large pannus with significant weight. she reports that this wound has been present for approximately 1 month, first came to her attention when she was admitted to the hospital recently. She thinks it is from her wheelchair hitting against the area. At home, she relies on her daughter to assist her with wound care. Since her discharge from the hospital, they have been utilizing Aquacel they were sent home with but she did run out recently. She had been receiving antifungal powder to apply while in the hospital, but does not have this at home. She denies any history of prior wounds in this area. She does have a history of superficial wounds to the bilateral lower extremities which were also noted at the time of her most recent hospitalization early February, but seem to be resolved at this time. She does wear compression stockings. She is trying to do a better job of elevating her legs but does note she cannot lay back too far without having difficulty breathing. She is diabetic but most recent A1c in 11/2022 5.4 and do not see any active medications for diabetes. She does not smoke. She does not take any blood thinners other than aspirin. 27 October 2023: Dr. Mireles graciously referred me this very pleasant 77-year-old female for evaluation of a wound beneath her abdominal pannus in the crease. Mrs. Bradley's daughter was present on the phone during our visit we discussed her status. Their main goal from the visit today was to get follow-up for the abdominal wound beneath her pannus. She was admitted to the [facility] for her multiple comorbidities, including treatment of her COPD as well as aortic stenosis, and during this time she was treated for this wound that was developing beneath her pannus. They suggested that she follow-up with the net application support specialist and [facility] near her home. She reports that she has been doing packing with Vashe soaked Kerlix twice daily and has been putting Interdry beneath the pannus to keep the skin from becoming macerated. No recent problems with yeast. 03 Nov 2023: Doing well overall. No new complaints. No fevers/chills. No new drainage. Daughter has been helping her with the dressing changes with Vashe. 17 Nov 2023: Doing well overall. Endorses good dressing changes. No new problems 08 Dec 2023: Doing well. Compliant with wound care. Seeing Dr. Mireles tomorrow. 29 Dec 2023: New wound on abdomen today. Has not been using the pad, Interdry (ran out and needs more, they've been ordered). No fevers/chills. 12 Jan 2024: Has been using Interdry. No fevers/chills. Here today for check up 26 Jan 2024: Discharged from [facility] recently after admission for UTI. No much progress on wound. Reports high protein intake and being intentional about this. Current encounter consultation from 26 February 2024: Patient admitted for concern for cellulitis and infection, possible urinary tract infection. She has been transferred to [facility] given her multiple core morbidities. She is awaiting transfer. A CT scan of her abdomen was done and just demonstrated the soft tissue stranding and cellulitis but no fluid collections. Patient and her daughter both report worsening of the wound on her abdomen/within the fold of her pannus. [facility] Medical History ESBL (extended spectrum beta-lactamase) producing bacteria infection Chronic kidney disease Bacteremia due to Escherichia coli Morbid obesity CKD (chronic kidney disease), stage IV GERD (gastroesophageal reflux disease) History of venous thromboembolism Anxiety and depression Chronic anemia ROBBI treated with BiPAP UTI (urinary tract infection) Abdominal pannus Open abdominal wall wound Type 2 diabetes mellitus Chronic obstructive pulmonary disease with hypoxia Bilateral pulmonary embolism (07/2014) Postoperative atrial fibrillation (06/2014) Essential hypertension Multiple thyroid nodules Osteomyelitis of cervical spine Home Medications ?Medication ?Instructions ?Recorded ?Last Taken ?Type ergocalciferol (vitamin D2) 1,250 50,000 unit PO MAZA SUPPLEMENT 02/25/20 04/15/23 History mcg (50,000 unit) capsule fluoxetine 20 mg capsule 20 mg PO DAILY DEPRESSION 02/25/20 02/25/20 History rosuvastatin 5 mg tablet (Crestor) 5 mg PO QHS cholesterol 01/16/21 Unknown History pantoprazole 40 mg tablet,delayed 40 mg PO DAILY reflux 03/12/21 Unknown History release amiodarone 200 mg tablet 200 mg PO DAILY heart rate #0 tabs 02/26/23 04/15/23 Rx albuterol sulfate 90 mcg/actuation 2 inh inhalation .000 PRN 03/27/23 04/16/23 08:22 History breath activated powder inhaler shortness of breath ammonium lactate 12 % lotion (Skin 1 applic topical DAILY PRN dry skin 03/27/23 Unknown History Treatment) furosemide 40 mg tablet 20 mg PO DAILY PRN diuretic 03/27/23 04/15/23 History vitamin B complex and vitamin C 1 cap PO DAILY vitamin 03/27/23 Unknown History no.20-folic acid 1 mg capsule (Renal Caps) sennosides 8.6 mg-docusate sodium 2 tab PO BID PRN constipation 06/25/23 Unknown History 50 mg tablet (Stool Softener-Stimulant Laxative) L.acidophil,salivari-Bifido 1 cap PO DAILY 01/28/24 Unknown History bifidum-Strep thermoph 175 mg capsule apixaban 5 mg tablet (Eliquis) 5 mg PO BID 01/28/24 Unknown History cranberry fruit concentrate 250 mg 250 mg PO DAILY 01/28/24 Unknown History chewable tablet (Azo Cranberry) fluticasone fur. 100 mcg-umeclid 1 ea inhalation DAILY 01/28/24 Unknown History 62.5 mcg-vilant 25 mcg inhalat.powder (Trelegy Ellipta) Allergy/AdvReac Type Severity Reaction Status Date / Time piperacillin (From Zosyn) Allergy Mild Angioedema Verified 02/25/24 17:22 tazobactam (From Zosyn) Allergy Mild Angioedema Verified 02/25/24 17:22 aspartame Allergy EDEMA Verified 02/25/24 17:22 ibuprofen Allergy Shortness Verified 02/25/24 17:22 of breath oxycodone HCl (From Percocet) Allergy dizziness Verified 02/25/24 17:22 procaine (From Novocain) Allergy Other Verified 02/25/24 17:22 Family History Father Diabetes Mother CAD (coronary artery disease) Heart disease Hypertension Myocardial infarction Surgical History History of spinal fusion History of cholecystectomy History of Social History household members: family Smoking Status: Never smoker alcohol intake: never substance use type: does not use Physical Exam Narrative Nontoxic-appearing On supplemental oxygen 6 x 7 cm abdominal wound within the abdominal pannus fold There is necrotic eschar within the wound and it is full-thickness down to subcutaneous tissue. Const alert and oriented x3 Lab / Micro Data 02/25/24 19:36 02/25/24 19:36 Labs: Laboratory Results - last 24 hr 02/25/24 19:36: WBC 15.3 H, RBC 4.37, Hgb 12.7, Hct 39.4, MCV 90.2, MCH 29.1, MCHC 32.2, RDW Std Deviation 51.9 H, RDW Coeff of Ruben 16.1 H, Plt Count 181, MPV 11.1, Immature Gran % (Auto) 1.800 H, Neut % (Auto) 80.9 H, Lymph % (Auto) 6.0 L, [place] % (Auto) 8.9, Eos % (Auto) 1.6, Baso % (Auto) 0.8, Absolute Neuts (auto) 12.3 H, Absolute Lymphs (auto) 0.92, Nucleated RBC % 0, Sodium 140, Potassium 3.6, Chloride 102, Carbon Dioxide 29.0, Anion Gap 8, BUN 26 H, Creatinine 2.19 H, Estim Creat Clear Calc 33.32, Est GFR (MDRD) Af Amer 28 L, Est GFR (MDRD) Non-Af 23 L, BUN/Creatinine Ratio 11.9, Glucose 89, Lactic Acid 2.2 H*, Calcium 9.9, Total Bilirubin 1.40 H, AST 37, ALT 40, Alkaline Phosphatase 94, Total Protein 6.8, Albumin 2.8 L, Globulin 4.0, Albumin/Globulin Ratio 0.7 L 02/25/24 20:12: Urine Color Yellow, Urine Clarity Cloudy, Urine pH 5.0, Ur Specific [place] 1.020, Urine Protein 30 H, Urine Glucose (UA) Normal, Urine Ketones 15 H, Urine Occult Blood 250 H, Urine Nitrite Negative, Urine Bilirubin 3 H, Urine Urobilinogen 4 H, Ur Leukocyte Esterase 500 H, Urine RBC 10-25 SEEN, Urine WBC 25-50 SEEN, Ur Squamous Epith Cells 5-10 SEEN, Urine Bacteria 2+, Urine Mucus 0 SEEN, Urine Yeast 2+ 02/25/24 23:50: Lactic Acid 1.4 02/26/24 06:59: POC Glucose 76 02/26/24 12:32: S.aureus Protein A PCR NEGATIVE, MRSA (PCR) Negative Micro: Microbiology 02/25/24 20:12 Urine Catheter - Catheter Urine Culture - Preliminary Culture exhibits no growth. Rhythm Strip Rhythm Strip: Sinus Rhythm Rate: 86 Ectopy: None Imaging Radiology Impression Chest X-Ray 02/25/24 19:55 IMPRESSION: 1. Apparent cardiomegaly and/or pericardial effusion. 2. Bibasilar pulmonary opacities may be atelectasis or pneumonia. Suspect bilateral pleural effusions. 3. Postoperative changes in the lower thoracic spine and visualized upper lumbar spine correlating with the prior examination. 4. Hyperinflated lungs with diffuse interstitial prominence likely indicative of COPD. Electronically Signed: Jose Sol DO at 20:55 EST , Chest/Abdomen/Pelvis CT 02/25/24 21:32 IMPRESSION: 1. Trace pericardial effusion and mild cardiomegaly. Coronary artery calcifications. 2. Trace right pleural effusion and patchy pulmonary opacities in the basilar lungs are most consistent with atelectasis rather than pneumonia. The lung apices are partially excluded from the imaged field of view. 3. Large pannus with extensive inflammatory stranding and skin thickening consistent with panniculitis. No discrete abscess. 4. Partial corpectomy change of L1 with T10-L4 spinal fusion and L1 laminectomy change. Additional degenerative changes in the spine. No acute osseous findings. 5. Right renal pelvic stone measuring 1.4 cm an additional right renal calyceal stones without hydronephrosis. Bilateral renal cortical thinning. 6. Significant rectus diastases with peritoneal structures extending 22 cm inferior to the pubic symphysis anteriorly. Electronically Signed: Jose Sol DO at 23:05 EST , I personally reviewed and examined the CT scan Charges/Coding Multi Select Codes Visit Charges Office Visit/Consults: 23656 IP Consult L5
--- NOTE | 2024-02-26 14:42 | PCM.OPRPT ---
Operative Report (Standard) Operative Information Date of Procedure: 02/26/24 Pre-Operative Diagnosis: Abdominal wound Post-Operative Diagnosis: Same Surgery/Procedure Performed: Excision of 6 x 7 cm abdominal wound down to necrotic fat (CPT 94378, 80193 x 2) supervisor self service store: No Type of Anesthesia: Local (10 cc of 1% lidocaine with epinephrine 1-200,000) Procedure Start Time: 04:00 Procedure Stop Time: 04:10 Select all DRAINS/GRAFTS/IMPLANTS that apply: None Estimated Blood Loss: 5 cc Specimen collected: No Description of surgery: Patient was prepped and draped in sterile fashion and lidocaine was injected. It was given time to take effect and once the proper level of anesthesia was obtained, a 15 blade scalpel was used to excise the necrotic eschar as well as a curette. The wound was excised down to subcutaneous tissue to improve the ability to perform wound care. The total excision was 6 x 7 cm at bedside. There was minimal bleeding which was controlled with pressure. Patient tolerated the procedure well. The entire 6 x 7 cm wound was excised. The wound was packed with Dakin soaked Kerlix. Surgical Findings: No fluid collections beneath wound Complications Complications: No Admit VTE Documentation VTE Mechan Device Prophylaxis: SCD's
--- NOTE | 2024-02-26 14:54 | CHAPLAIN ---
Type of Pastoral Visit _x__ Initial Visit ___ Follow-up Visit ___ On-call Visit ___ General Patient Visit ___ Spiritual Assessment ___ Family Conference ___ Bereavement ___ Rapid Response ___ Code Blue ___ Other (describe below) Pastoral Care Referral From _x__ Patient ___ Family ___ Nurse ___ Physician ___ Electrical Troubleshooter ___ Marketing Communications Coordinator ___ Other (describe below) Sacrament/Intervention _x__ Active listening ___ Anointing ___ Adventist ___ Bereavement ___ Communion ___ Caryn exploration ___ ___ Life review _x__ Prayer ___ Reconciliation ___ Sacrament of Sick _x__ Supportive presence ___ Wedding ___ Other (describe below) Pastoral Comments this is a repeat patient that has been seen numerous times during her admissions; daughter is present with her as is the usual situation; patient is able to describe her circumstances and acknowledges how often she has been hospitalized in the past year; pt states that she would really like to get well and stay away from the hospital; both are offered the kind of support that they prefer but neither has anything specific to receive; pt says that a prayer would be good and that is given
--- NOTE | 2024-02-26 16:22 | WOUNDNOTE ---
Assisted Dr Alfonso and PAULA Finch with bedside debridement of the abdominal fold wound. consent obtained prior. Pt tolerated the procedure well. some mild bleeding noted that was controlled with mild pressure. Dakins moistened gauze was applied and covered with ABD pad. pt tolerated well. plan or BID and prn dressing changes.
[2024-02-26] MEDS: Budesonide Respules 0.5 MG/2 ML AMPUL.NEB. INHALATION (19:19)
[2024-02-26] MEDS: Ipratropium/Albuterol Sulfate 3 ML AMPUL.NEB INHALATION (19:19)
[2024-02-26] MEDS: Atorvastatin Calcium 10 MG Tablet PO (21:03)
[2024-02-26] MEDS: Acetaminophen 325 MG Tablet 650 MG PO (21:07)
[2024-02-26] MEDS: DAKIN'S SOL HALF STRENGTH (=0.25%) TOPICAL (23:10)
[2024-02-27] VITALS (10 sets, daily range): BP systolic 107–128; BP diastolic 39–49; PULSE 64–86; RESP 16–20; TEMP 36.7–37.1; O2SAT 95–99
[2024-02-27 08:37] LABS: Absolute Lymphocyte Count 0.57 X10^3/uL (0.83-4.51); Basophil# 0.04 X10^3/uL; Basophil% 0.5 % (0-1); Eosinophil# 0.34 X10^3/uL; Eosinophils% 4.2 % (0-5); Hematocrit 31.4 % (37-47); Hemoglobin 9.8 g/dL (12.0-15.0); Lymphocyte # 0.57 X10^3/ul (0.83-4.51); Lymphocyte % 7.1 % (19-41); Mean Corp Hgb Conc 31.2 g/dL (32-36); Mean Corpuscular Hgb 29.3 pg (27.0-32.0); Mean Corpuscular Volume 93.7 fL (81-99); Mean Platelet Vol. 11.5 fl (6.2-12.0); Monocyte# 1.03 X10^3/uL; Monocyte% 12.8 % (0-10); NRBC Flagged by Analyzer 0 % (0-5); Neutrophil # 5.96 X10^3/uL (2.7-7.7); Neutrophil % 73.8 % (47-70); POSITIVE DIFFERENTIAL YES; Platelet Count 128 K/mm3 (150-450); RBC Distribution Width SD 54.4 fl (35.1-43.9); Red Blood Count 3.35 M/mm3 (4.2-5.4); White Blood Count 8.1 K/mm3 (4.4-11.0)
[2024-02-27 08:53] LABS: Anion Gap 2 (5-15); BUN 23 mg/dL (7-18); BUN/Creat Ratio 12.3 RATIO (10-20); Calcium,Total 8.9 mg/dL (8.5-10.1); Chloride 108 mmol/L (98-107); Creatinine, Serum 1.87 mg/dL (0.55-1.02); EST Glomerular Filtration Rate 28 mL/min (>60); Est Glom Filt Rate - Afr Amer 34 mL/min (>60); Glucose 100 mg/dL (74-106); Potassium 3.2 mmol/L (3.5-5.1); Sodium Level 142 mmol/L (136-145)
[2024-02-27] MEDS: Pantoprazole Sodium 40 MG Tablet PO (09:10)
[2024-02-27] MEDS: APIXABAN 5 MG TABLET PO ×2 (09:10→22:11)
[2024-02-27] MEDS: FLUoxetine 20 MG Capsule PO (09:10)
[2024-02-27] MEDS: Amiodarone 200 MG Tablet PO (09:10)
[2024-02-27] MEDS: 0.9% Saline Lock 10 ML Syringe IV (09:11)
[2024-02-27] MEDS: DAKIN'S SOL HALF STRENGTH (=0.25%) TOPICAL ×2 (09:11→22:53)
[2024-02-27] MEDS: Potassium Chloride Oral Tablet 20 MEQ 40 MEQ PO (09:21)
[2024-02-27] MEDS: Meropenem 2 GM in 0.9% Normal Saline (100mL Bag) 100 ML IV ×2 (09:48→22:10)
--- NOTE | 2024-02-27 09:50 | NURSING ---
I spoke to [facility] transfer line they stated the pt is on the wait list however they do not have a bed at this time.
[2024-02-27] MEDS: Ipratropium/Albuterol Sulfate 3 ML AMPUL.NEB INHALATION ×2 (13:24→20:23)
--- NOTE | 2024-02-27 14:09 | PN.SURG_ITS ---
Subjective Subjective Feeling a little better. Endorses good dressing changes. Objective Data Objective Data Vital Signs: Vital Signs Temp Pulse Resp BP Pulse Ox O2 Del Method O2 Flow Rate 98.1 F 86 20 H 107/39 L 96 Nasal Cannula 2 02/27/24 12:00 02/27/24 13:25 02/27/24 13:25 02/27/24 12:00 02/27/24 12:00 02/27/24 12:00 02/27/24 12:00 Oxygen Flow Rate (L/min) 2 Oxygen Delivery Method Nasal Cannula Weight: 319 lb 6 oz Body Mass Index (BMI) 51.5 Intake & Output: Intake and Output for Last 24 Hours 02/25/24 02/26/24 02/27/24 23:59 23:59 23:59 Intake Total 910 / 910 1280 / 1280 Output Total 200 / 350 350 / 350 Balance 710 / 560 930 / 930 Lab / Micro Data 02/27/24 07:42 02/27/24 07:42 Labs: Laboratory Results - last 24 hr 02/27/24 07:42: WBC 8.1, RBC 3.35 L, Hgb 9.8 L, Hct 31.4 L, MCV 93.7, MCH 29.3, MCHC 31.2 L, RDW Std Deviation 54.4 H, RDW Coeff of Ruben 16.0 H, Plt Count 128 L, MPV 11.5, Immature Gran % (Auto) 1.600 H, Neut % (Auto) 73.8 H, Lymph % (Auto) 7.1 L, [place] % (Auto) 12.8 H, Eos % (Auto) 4.2, Baso % (Auto) 0.5, Absolute Neuts (auto) 6.0, Absolute Lymphs (auto) 0.57 L, Nucleated RBC % 0, Sodium 142, P otassium 3.2 L, Chloride 108 H, Carbon Dioxide 32.0, Anion Gap 2 L, BUN 23 H, C reatinine 1.87 H, Estim Creat Clear Calc 37.20, Est GFR (MDRD) Af Amer 34 L, Est GFR (MDRD) Non-Af 28 L, BUN/Creatinine Ratio 12.3, Glucose 100, Calcium 8.9 Micro: Microbiology 02/25/24 20:12 Urine Catheter - Catheter Urine Culture - Preliminary Yeast Like Organism 02/26/24 12:32 Wound - Abdominal Gram Stain - Final Rhythm Strip Rhythm Strip: Sinus Rhythm Rate: 86 Ectopy: None Physical Exam Narrative Abdominal wound examined. No bleeding. Still some necrotic tissue, but much better than before debridement. No fluid collections. Assessment & Plan Assessment/Plan (1) Panniculitis: PLAN: Continue BID Dakins WTD dressings with interdry to the other areas to prevent maceration . Charges/Coding Procedures Integumentary [id number]: 53835 Global Visit
--- NOTE | 2024-02-27 15:17 | CASEMGMT ---
STUART CM chart review: Patient admitted 01/28-01/31/24 for UTI. See CM assessment from 01/31/24. Patient was discharged to home with family support, follow-up plans in place, and APS referral due to hoarding conditions. Patient returned to [facility] ED on 02/24/23 for increased weakness and was admitted for panniculitis and is to be transfer to [facility] [place]. Patient has been accepted and awaiting bed to be available. CM will continue to follow this patient should discharge needs arise.
--- NOTE | 2024-02-27 16:02 | PCM.PN.HOSP ---
Reason for Visit Reason for Visit: Diagnoses Non-pressure chronic ulcer of skin of other sites with fat layer exposed (02/26/24) Panniculitis, unspecified (02/26/24) Subjective Subjective Patient feeling roughly the same with no new or acute complaints Objective Data Objective Data Vital Signs: Vital Signs Temp Pulse Resp BP Pulse Ox O2 Del Method O2 Flow Rate 98.1 F 86 20 H 107/39 L 96 Nasal Cannula 2 02/27/24 12:00 02/27/24 13:25 02/27/24 13:25 02/27/24 12:00 02/27/24 12:00 02/27/24 12:00 02/27/24 12:00 Oxygen Flow Rate (L/min) 2 Oxygen Delivery Method Nasal Cannula Weight: 144.866 kg Body Mass Index (BMI) 51.5 Intake & Output: Intake and Output for Last 24 Hours 02/25/24 02/26/24 02/27/24 23:59 23:59 23:59 Intake Total 910 / 910 1700 / 1700 Output Total 200 / 350 750 / 750 Balance 710 / 560 950 / 950 Lab / Micro Data 02/27/24 07:42 02/27/24 07:42 Labs: Laboratory Results - last 24 hr 02/27/24 07:42: WBC 8.1, RBC 3.35 L, Hgb 9.8 L, Hct 31.4 L, MCV 93.7, MCH 29.3, MCHC 31.2 L, RDW Std Deviation 54.4 H, RDW Coeff of Ruben 16.0 H, Plt Count 128 L, MPV 11.5, Immature Gran % (Auto) 1.600 H, Neut % (Auto) 73.8 H, Lymph % (Auto) 7.1 L, [place] % (Auto) 12.8 H, Eos % (Auto) 4.2, Baso % (Auto) 0.5, Absolute Neuts (auto) 6.0, Absolute Lymphs (auto) 0.57 L, Nucleated RBC % 0, Sodium 142, Potassium 3.2 L, Chloride 108 H, Carbon Dioxide 32.0, Anion Gap 2 L, BUN 23 H, Creatinine 1.87 H, Estim Creat Clear Calc 37.20, Est GFR (MDRD) Af Amer 34 L, Est GFR (MDRD) Non-Af 28 L, BUN/Creatinine Ratio 12.3, Glucose 100, Calcium 8.9 Micro: Microbiology 02/26/24 12:32 Wound - Abdominal Gram Stain - Final 02/26/24 12:32 Wound - Abdominal Wound Culture - Preliminary GNR Poss Pseudomonas sp Mixed Gram Positive Organisms 02/25/24 20:12 Urine Catheter - Catheter Urine Culture - Final Yeast, not Vanesa albicans Rhythm Strip Rhythm Strip: Sinus Rhythm Rate: 86 Ectopy: None Physical Exam Narrative General: Alert, oriented, no apparent distress HEENT: Atraumatic, normocephalic Eyes: Anicteric, normal conjunctiva, extraocular movements grossly intact Neck: Supple Respiratory: Diminished bilaterally, normal respiratory effort Cardiovascular: Regular rate and rhythm GI: Soft, nontender, nondistended Extremities: No significant pitting edema Musculoskeletal: Moving all extremities Neuro: No overt focal neurological deficits Skin: Significant pannus Psych: Cooperative Assessment & Plan Assessment/Plan (1) Panniculitis: PLAN: Plan # Extensive pannicular inflammation -Recent wound culture from abdominal wound with Pseudomonas and ESBL E. coli -Patient had been on Merrem but Pseudomonas with only intermediate sensitivity -Will continue patient on Merrem for the ESBL but add Levaquin for the Pseudomonas -If patient will have prolonged stay at our institution will consult infectious disease -02/26: Plastic surgery did excision and debridement of abdominal wound down to necrotic fat. Local wound care. It was advised still that she be transferred for her continued care. Continue current antibiotics # CKD stage III b -Appears to be at baseline -Avoid nephrotoxic agents -Daily BMPs -02/26: Kidney function slightly improved to 1.87 today, continue present management Chronic medical problems: # History of VTE -Continue Eliquis # COPD -Continue home inhalers -Incentive spirometry #Depression/anxiety -Continue home medications #GERD -Continue PPI #ROBBI -Continue home NIPPV if applicable #Morbid obesity -BMI documented as 52.8 kg/m? at time of admission -Complicates treatment, prognosis, outcomes -Recommend weight loss and lifestyle changes #DVT ppx: On Eliquis Jenna Dyer MD Charges/Coding Visit Charges Inpatient E&M: 53045 [facility] Hosp L1
[2024-02-27] MEDS: Budesonide Respules 0.5 MG/2 ML AMPUL.NEB. INHALATION (20:23)
[2024-02-27] MEDS: Atorvastatin Calcium 10 MG Tablet PO (22:11)
[2024-02-28] VITALS (7 sets, daily range): BP systolic 100–127; BP diastolic 44–48; PULSE 66–75; RESP 16–20; TEMP 36.4–37.1; O2SAT 96–100; BMI 52.7
[2024-02-28] MEDS: levoFLOXacin IV 750 MG/150 ML BAG 100 MG IV (00:38)
[2024-02-28 06:29] LABS: Absolute Lymphocyte Count 0.62 X10^3/uL (0.83-4.51); Basophil# 0.06 X10^3/uL; Eosinophil# 0.36 X10^3/uL; Eosinophils% 6.1 % (0-5); Hematocrit 29.5 % (37-47); Hemoglobin 9.3 g/dL (12.0-15.0); Lymphocyte # 0.62 X10^3/ul (0.83-4.51); Lymphocyte % 10.4 % (19-41); Mean Corp Hgb Conc 31.5 g/dL (32-36); Mean Corpuscular Hgb 29.7 pg (27.0-32.0); Mean Corpuscular Volume 94.2 fL (81-99); Mean Platelet Vol. 12.2 fl (6.2-12.0); Monocyte% 13.4 % (0-10); NRBC Flagged by Analyzer 0 % (0-5); Neutrophil # 4.02 X10^3/uL (2.7-7.7); Neutrophil % 67.6 % (47-70); Platelet Count 112 K/mm3 (150-450); RBC Distribution Width SD 54.4 fl (35.1-43.9); Red Blood Count 3.13 M/mm3 (4.2-5.4)
[2024-02-28 06:54] LABS: Anion Gap 2 (5-15); BUN 20 mg/dL (7-18); BUN/Creat Ratio 12.8 RATIO (10-20); Calcium,Total 8.9 mg/dL (8.5-10.1); Chloride 109 mmol/L (98-107); Creatinine, Serum 1.56 mg/dL (0.55-1.02); EST Glomerular Filtration Rate 34 mL/min (>60); Est Glom Filt Rate - Afr Amer 41 mL/min (>60); Estimated Creatinine Clearance 45.19 ml/min; Glucose 94 mg/dL (74-106); Potassium 3.3 mmol/L (3.5-5.1); Sodium Level 142 mmol/L (136-145)
[2024-02-28] MEDS: Ipratropium/Albuterol Sulfate 3 ML AMPUL.NEB INHALATION ×3 (07:33→19:22)
[2024-02-28] MEDS: Budesonide Respules 0.5 MG/2 ML AMPUL.NEB. INHALATION ×2 (07:33→19:22)
[2024-02-28] MEDS: DAKIN'S SOL HALF STRENGTH (=0.25%) TOPICAL (10:00)
[2024-02-28] MEDS: Amiodarone 200 MG Tablet PO (10:00)
[2024-02-28] MEDS: APIXABAN 5 MG TABLET PO ×2 (10:00→22:43)
[2024-02-28] MEDS: Pantoprazole Sodium 40 MG Tablet PO (10:01)
[2024-02-28] MEDS: FLUoxetine 20 MG Capsule PO (10:01)
[2024-02-28] MEDS: 0.9% Saline Lock 10 ML Syringe IV ×2 (10:01→11:35)
[2024-02-28] MEDS: Potassium Chloride Oral Tablet 20 MEQ 40 MEQ PO (10:07)
[2024-02-28] MEDS: Meropenem 2 GM in 0.9% Normal Saline (100mL Bag) 100 ML IV ×2 (11:34→22:43)
--- NOTE | 2024-02-28 14:38 | PN.HOSP_ITS ---
Reason for Visit Reason for Visit: Diagnoses Non-pressure chronic ulcer of skin of other sites with fat layer exposed (02/26/24) Panniculitis, unspecified (02/26/24) Subjective Subjective Patient feeling about the same today, no new complaints Objective Data Objective Data Vital Signs: Vital Signs Temp Pulse Resp BP Pulse Ox O2 Del Method O2 Flow Rate 97.6 F L 72 18 127/48 H 97 Nasal Cannula 2 02/28/24 09:58 02/28/24 13:10 02/28/24 13:10 02/28/24 09:58 02/28/24 09:58 02/28/24 09:58 02/28/24 12:40 Oxygen Flow Rate (L/min) 2 Oxygen Delivery Method Nasal Cannula Weight: 148 kg Body Mass Index (BMI) 52.7 Intake & Output: Intake and Output for Last 24 Hours 02/26/24 02/27/24 02/28/24 23:59 23:59 23:59 Intake Total 910 / 910 2060 / 2060 430 / 430 Output Total 200 / 350 750 / 750 Balance 710 / 560 1310 / 1310 430 / 430 Lab / Micro Data 02/28/24 05:13 02/28/24 05:13 Labs: Laboratory Results - last 24 hr 02/28/24 05:13: WBC 6.0, RBC 3.13 L, Hgb 9.3 L, Hct 29.5 L, MCV 94.2, MCH 29.7, MCHC 31.5 L, RDW Std Deviation 54.4 H, RDW Coeff of Ruben 16.0 H, Plt Count 112 L, MPV 12.2 H, Immature Gran % (Auto) 1.500 H, Neut % (Auto) 67.6, Lymph % (Auto) 10.4 L, [place] % (Auto) 13.4 H, Eos % (Auto) 6.1 H, Baso % (Auto) 1.0, Absolute Neuts (auto) 4.0, Absolute Lymphs (auto) 0.62 L, Nucleated RBC % 0, Sodium 142, Potassium 3.3 L, Chloride 109 H, Carbon Dioxide 31.0, Anion Gap 2 L, BUN 20 H, C reatinine 1.56 H, Estim Creat Clear Calc 45.19, Est GFR (MDRD) Af Amer 41 L, Est GFR (MDRD) Non-Af 34 L, BUN/Creatinine Ratio 12.8, Glucose 94, Calcium 8.9 Micro: Microbiology 02/26/24 12:32 Wound - Abdominal Gram Stain - Final 02/26/24 12:32 Wound - Abdominal Wound Culture - Preliminary Pseudomonas aeruginosa GNR lactose operator weapon locating radar GPC Poss Enterococcus sp Alpha hemolytic organism 02/25/24 23:43 Blood Culture (Wb) - Left Forearm Blood Culture - Preliminary No growth in 48 hours. 02/25/24 23:30 Blood Culture (Wb) - Left Hand Blood Culture - Preliminary No growth in 48 hours. 02/25/24 20:12 Urine Catheter - Catheter Urine Culture - Final Yeast, not Vanesa albicans Rhythm Strip Rhythm Strip: Sinus Rhythm Rate: 86 Ectopy: None Physical Exam Narrative General: Alert, oriented, no apparent distress HEENT: Atraumatic, normocephalic Eyes: Anicteric, normal conjunctiva, extraocular movements grossly intact Neck: Supple Respiratory: Normal respiratory effort Cardiovascular: Regular rate GI: Large pannus, appears unchanged Extremities: No significant pitting edema Musculoskeletal: Moving all extremities Neuro: No overt focal neurological deficits Skin: Significant pannus covering patient's lesion Psych: Cooperative Assessment & Plan Assessment/Plan (1) Panniculitis: PLAN: Plan # Extensive pannicular inflammation -Recent wound culture from abdominal wound with Pseudomonas and ESBL E. coli -Patient had been on Merrem but Pseudomonas with only intermediate sensitivity -Will continue patient on Merrem for the ESBL but add Levaquin for the Pseudomonas -If patient will have prolonged stay at our institution will consult infectious disease -02/26: Plastic surgery did excision and debridement of abdominal wound down to necrotic fat. Local wound care. It was advised still that she be transferred for her continued care. Continue current antibiotics -02/27: Cultures polymicrobial, await sensitivities, continue broad-spectrum antibiotics. Blood cultures no growth to date # CKD stage III b -Appears to be at baseline -Avoid nephrotoxic agents -Daily BMPs -02/26: Kidney function slightly improved to 1.87 today, continue present management -02/27: Further improved to 1.56 today Chronic medical problems: # History of VTE -Continue Eliquis # COPD -Continue home inhalers -Incentive spirometry #Depression/anxiety -Continue home medications #GERD -Continue PPI #ROBBI -Continue home NIPPV if applicable #Morbid obesity -BMI documented as 52.8 kg/m? at time of admission -Complicates treatment, prognosis, outcomes -Recommend weight loss and lifestyle changes #DVT ppx: On Lyndsey Dyer MD Charges/Coding Visit Charges Inpatient E&M: 93614 Subs Hosp L1
[2024-02-28] MEDS: Atorvastatin Calcium 10 MG Tablet PO (22:34)
[2024-02-29 04:43] VITALS: BMI 52.7
[2024-02-29 04:45] VITALS: BP 117/55; PULSE 69; RESP 20; TEMP 36.7; O2SAT 96
[2024-02-29] MEDS: DAKIN'S SOL HALF STRENGTH (=0.25%) TOPICAL (06:22)
[2024-02-29 06:41] LABS: Absolute Lymphocyte Count 0.64 X10^3/uL (0.83-4.51); Basophil# 0.06 X10^3/uL; Basophil% 1.2 % (0-1); Eosinophil# 0.56 X10^3/uL; Eosinophils% 11.2 % (0-5); Hematocrit 31.4 % (37-47); Hemoglobin 9.6 g/dL (12.0-15.0); Lymphocyte # 0.64 X10^3/ul (0.83-4.51); Lymphocyte % 12.7 % (19-41); Mean Corp Hgb Conc 30.6 g/dL (32-36); Mean Corpuscular Hgb 28.9 pg (27.0-32.0); Mean Corpuscular Volume 94.6 fL (81-99); Mean Platelet Vol. 12.2 fl (6.2-12.0); Monocyte# 0.65 X10^3/uL; Monocyte% 12.9 % (0-10); NRBC Flagged by Analyzer 0 % (0-5); Neutrophil # 3.03 X10^3/uL (2.7-7.7); Neutrophil % 60.4 % (47-70); Platelet Count 109 K/mm3 (150-450); RBC Distribution Width CV 15.7 % (11.6-14.6); RBC Distribution Width SD 54.8 fl (35.1-43.9); Red Blood Count 3.32 M/mm3 (4.2-5.4)
[2024-02-29 07:00] LABS: Anion Gap 1 (5-15); BUN 18 mg/dL (7-18); BUN/Creat Ratio 13.4 RATIO (10-20); Calcium,Total 9.2 mg/dL (8.5-10.1); Chloride 111 mmol/L (98-107); Creatinine, Serum 1.34 mg/dL (0.55-1.02); EST Glomerular Filtration Rate 41 mL/min (>60); Est Glom Filt Rate - Afr Amer 49 mL/min (>60); Estimated Creatinine Clearance 52.61 ml/min; Glucose 96 mg/dL (74-106); Potassium 3.8 mmol/L (3.5-5.1); Sodium Level 142 mmol/L (136-145)
[2024-02-29] MEDS: Ipratropium/Albuterol Sulfate 3 ML AMPUL.NEB INHALATION ×2 (07:28→13:29)
[2024-02-29] MEDS: Budesonide Respules 0.5 MG/2 ML AMPUL.NEB. INHALATION (07:28)
[2024-02-29 07:30] VITALS: PULSE 79; RESP 18; O2SAT 91
--- NOTE | 2024-02-29 08:44 | PN.HOSP_ITS ---
Reason for Visit Reason for Visit: Diagnoses Non-pressure chronic ulcer of skin of other sites with fat layer exposed (02/26/24) Panniculitis, unspecified (02/26/24) Subjective Subjective Pt sitting up in bed, in no acute distress, no new or acute complaints Objective Data Objective Data Vital Signs: Vital Signs Temp Pulse Resp BP Pulse Ox O2 Del Method O2 Flow Rate 98.0 F 79 18 117/55 L 91 Room Air 2 02/29/24 04:45 02/29/24 07:30 02/29/24 07:30 02/29/24 04:45 02/29/24 07:30 02/29/24 07:30 02/29/24 04:45 Oxygen Flow Rate (L/min) 2 Oxygen Delivery Method Room Air Weight: 148 kg Body Mass Index (BMI) 52.7 Intake & Output: Intake and Output for Last 24 Hours 02/27/24 02/28/24 02/29/24 23:59 23:59 23:59 Intake Total 2060 / 2060 550 / 550 140 / 140 Output Total 750 / 750 150 / 150 300 / 300 Balance 1310 / 1310 400 / 400 -160 / -160 Lab / Micro Data 02/29/24 06:10 02/29/24 06:10 Labs: Laboratory Results - last 24 hr 02/29/24 06:10: WBC 5.0, RBC 3.32 L, Hgb 9.6 L, Hct 31.4 L, MCV 94.6, MCH 28.9, MCHC 30.6 L, RDW Std Deviation 54.8 H, RDW Coeff of Ruben 15.7 H, Plt Count 109 L, MPV 12.2 H, Immature Gran % (Auto) 1.600 H, Neut % (Auto) 60.4, Lymph % (Auto) 12.7 L, [place] % (Auto) 12.9 H, Eos % (Auto) 11.2 H, Baso % (Auto) 1.2 H, Absolute Neuts (auto) 3.0, Absolute Lymphs (auto) 0.64 L, Nucleated RBC % 0, Sodium 142, Potassium 3.8, Chloride 111 H, Carbon Dioxide 30.0, Anion Gap 1 L, BUN 18, C reatinine 1.34 H, Estim Creat Clear Calc 52.61, Est GFR (MDRD) Af Amer 49 L, Est GFR (MDRD) Non-Af 41 L, BUN/Creatinine Ratio 13.4, Glucose 96, Calcium 9.2 Micro: Microbiology 02/26/24 12:32 Wound - Abdominal Gram Stain - Final 02/26/24 12:32 Wound - Abdominal Wound Culture - Preliminary Pseudomonas aeruginosa GNR lactose cleaning professional GPC Poss Enterococcus sp Alpha hemolytic organism 02/25/24 23:43 Blood Culture (Wb) - Left Forearm Blood Culture - Preliminary No growth in 48 hours. 02/25/24 23:30 Blood Culture (Wb) - Left Hand Blood Culture - Preliminary No growth in 48 hours. 02/25/24 20:12 Urine Catheter - Catheter Urine Culture - Final Yeast, not Vanesa albicans Rhythm Strip Rhythm Strip: Sinus Rhythm Rate: 86 Ectopy: None Physical Exam Narrative General: Alert, oriented, no apparent distress HEENT: Atraumatic, normocephalic Eyes: Anicteric, normal conjunctiva, extraocular movements grossly intact Neck: Supple Respiratory: Normal respiratory effort Cardiovascular: Regular rate GI: Large pannus, appears unchanged Musculoskeletal: Moving all extremities Neuro: No overt focal neurological deficits Skin: Local wound care to abdominal area Psych: Cooperative Assessment & Plan Assessment/Plan (1) Panniculitis: PLAN: Plan # Extensive pannicular inflammation -Recent wound culture from abdominal wound with Pseudomonas and ESBL E. coli -Patient had been on Merrem but Pseudomonas with only intermediate sensitivity -Will continue patient on Merrem for the ESBL but add Levaquin for the Pseudomonas -If patient will have prolonged stay at our institution will consult infectious disease -02/26: Plastic surgery did excision and debridement of abdominal wound down to necrotic fat. Local wound care. It was advised still that she be transferred for her continued care. Continue current antibiotics -02/27: Cultures polymicrobial, await sensitivities, continue broad-spectrum antibiotics. Blood cultures no growth to date -02/28: Continue to follow cultures, if patient still here tomorrow will obtain ID consult to assist with management of polymicrobial wound/antibiotics. Patient's culture from debridement 02/25 growing MDRO Pseudomonas, ESBL E. coli, enteric coccus. Patient's Pseudomonas culture previously sensitive to Levaquin, currently intermediate patient is improving on this, will discuss with infectious disease tomorrow in the event this does not changed. Given sensitivities as well we will add vancomycin. White blood cell count stable, overall clinically stable awaiting transfer # CKD stage III b -Appears to be at baseline -Avoid nephrotoxic agents -Daily BMPs -02/26: Kidney function slightly improved to 1.87 today, continue present management -02/27: Further improved to 1.56 today -02/28: Has continued to improve. Continue current management Chronic medical problems: # History of VTE -Continue Eliquis # COPD -Continue home inhalers -Incentive spirometry #Depression/anxiety -Continue home medications #GERD -Continue PPI #ROBBI -Continue home NIPPV if applicable #Morbid obesity -BMI documented as 52.8 kg/m? at time of admission -Complicates treatment, prognosis, outcomes -Recommend weight loss and lifestyle changes #DVT ppx: On Eliquis Jenna Dyer MD Time spent in the patient's overall evaluation,decision-making process, review of diagnostic data, adjustment of management, discussion with other providers, nursing nursing and ancillary staff involved in patient's care documentation, 38 Minutes Charges/Coding Visit Charges Inpatient E&M: 29824 Subs Hosp L2
[2024-02-29 10:25] VITALS: BP 110/43; PULSE 70; RESP 16; TEMP 36.8; O2SAT 97
[2024-02-29] MEDS: APIXABAN 5 MG TABLET PO (10:29)
[2024-02-29] MEDS: Pantoprazole Sodium 40 MG Tablet PO (10:29)
[2024-02-29] MEDS: FLUoxetine 20 MG Capsule PO (10:29)
[2024-02-29] MEDS: Amiodarone 200 MG Tablet PO (10:29)
[2024-02-29] MEDS: 0.9% Saline Lock 10 ML Syringe IV ×2 (10:30→17:59)
[2024-02-29] MEDS: Meropenem 2 GM in 0.9% Normal Saline (100mL Bag) 100 ML IV (10:33)
[2024-02-29 11:05] VITALS: O2SAT 96
[2024-02-29 13:30] VITALS: PULSE 76; RESP 18
[2024-02-29 15:12] VITALS: BP 125/48; PULSE 66; RESP 16; TEMP 36.6; O2SAT 98
--- NOTE | 2024-02-29 16:21 | DS.PCM_ITS ---
Providers Date of Admission: 02/26/24 Date of Discharge: 02/29/24 Primary Care Physician: Dr. Sandrine Mireles MD Consultations 02/26/24 10:22 Consult: Onc/Wound/wrapper selector Routine Comment: 02/26/24 14:38 Consult: Plastic Surgery Routine Consulting Provider: Hari Alfonso Reason for Consult: wound abdominal fold under pannus EMERGENT Consult: No MD Notified: Yes Date Notified: 02/26/24 Time Notified: 14:38 Method of Notification: Verbal Reason For Visit: PANNICULITIS Diagnosis Discharge Diagnosis (1) Panniculitis: Status: Acute Code(s): M79.3 - Panniculitis, unspecified Plan # Extensive pannicular inflammation/panniculitis growing MDRO Pseudomonas, ESBL E. coli, Enterococcus # CKD stage III b # History of VTE # COPD #Depression/anxiety #GERD #ROBBI #Morbid obesity Medications at Discharge Home Medications ergocalciferol (vitamin D2) 1,250 mcg (50,000 unit) capsule 50,000 unit PO MAZA SUPPLEMENT 02/25/20 fluoxetine 20 mg capsule 20 mg PO DAILY DEPRESSION 02/25/20 rosuvastatin 5 mg tablet (Crestor) 5 mg PO QHS cholesterol 01/16/21 pantoprazole 40 mg tablet,delayed release 40 mg PO DAILY reflux 03/12/21 amiodarone 200 mg tablet 200 mg PO DAILY heart rate #0 tabs 02/26/23 albuterol sulfate 90 mcg/actuation breath activated powder inhaler 2 inh inhalation .000 PRN shortness of breath 03/27/23 ammonium lactate 12 % lotion (Skin Treatment) 1 applic topical DAILY PRN dry skin 03/27/23 furosemide 40 mg tablet 20 mg PO DAILY PRN diuretic 03/27/23 vitamin B complex and vitamin C no.20-folic acid 1 mg capsule (Renal Caps) 1 cap PO DAILY vitamin 03/27/23 sennosides 8.6 mg-docusate sodium 50 mg tablet (Stool Softener-Stimulant Laxative) 2 tab PO BID PRN constipation 06/25/23 L.acidophil,salivari-Bifido bifidum-Strep thermoph 175 mg capsule 1 cap PO DAILY 01/28/24 apixaban 5 mg tablet (Eliquis) 5 mg PO BID 01/28/24 cranberry fruit concentrate 250 mg chewable tablet (Azo Cranberry) 250 mg PO DAILY 01/28/24 fluticasone fur. 100 mcg-umeclid 62.5 mcg-vilant 25 mcg inhalat.powder (Trelegy Ellipta) 1 ea inhalation DAILY 01/28/24 Hospital Course Procedures - (Abdominal debridement 02/26/2024) Summary of Care Provided Hospital Course: CLAIRE PIRES, is a 78-year-old female history of COPD, depression, GERD, morbid obesity, ROBBI, CKD, abdominal wall abscess with history of I&D and antibiotic treatment who presented [facility] 02/26/2024 due to worsening erythema of pannus. She has history of abdominal wall I&D and antibiotics through [facility] which ultimately healed but she has developed another wound under her pannus for which she follows with the wound center. Was at [facility] recently was treated on 5 days of Merrem for UTI and discharged home. Since that time her cellulitis of pannus has continued to worsen prompting her to come to the emergency department. In the ED she is found to have white blood cell count of 15.3 w/ left shift, creatinine 2.[address] chest/abdomen/pelvis showed trace pericardial effusion, coronary artery calcifications, trace right pleural effusion and patchy pulmonary opacities most consistent with atelectasis, large pannus with extensive fluid inflammatory stranding and skin thickening consistent with panniculitis without discrete abscess. Given patient's complex nature and often receiving care at [facility] it was felt that she would be best served at [facility] tertiary facility so initiation transferred. Patient received meropenem and Levaquin in the ED in the meantime due to a wound culture from the showing ESBL and Pseudomonas. Hospitalist contacted to admit while awaiting a bed due to prolonged ED wait time. During admission patient was continued on Merrem and Levaquin, plastic surgeon did a bedside debridement with cultures pending further management at [facility] (he did still recommend patient be transferred to [facility], this was discussed over multiple days with the recommendation remaining the patient be transferred to tertiary facility as she may need further or more extensive intervention and we are not able to provide that at our institution) and cultures grew MDRO Pseudomonas, ESBL E. coli, Enterococcus. Vancomycin was added to her Levaquin and Merrem. Given sensitivities Levaquin may need to be changed to amikacin or tobramycin but she had been improving and Levaquin was intermediate sensitivity. No infectious disease physician in house today, plan was for evaluation tomorrow if patient had not yet received transfer bed for further antibiotic adjustment. Patient received transfer bed and was transferred to [facility] in stable condition Weight / BMI Weight Weight: 148 kg Body Mass Index (BMI) 52.7 ABG / Lab / Microbiology Data 02/29/24 06:10 02/29/24 06:10 Laboratory: Laboratory Results - last 24 hr 02/29/24 06:10: WBC 5.0, RBC 3.32 L, Hgb 9.6 L, Hct 31.4 L, MCV 94.6, MCH 28.9, MCHC 30.6 L, RDW Std Deviation 54.8 H, RDW Coeff of Ruben 15.7 H, Plt Count 109 L, MPV 12.2 H, Immature Gran % (Auto) 1.600 H, Neut % (Auto) 60.4, Lymph % (Auto) 12.7 L, [place] % (Auto) 12.9 H, Eos % (Auto) 11.2 H, Baso % (Auto) 1.2 H, Absolute Neuts (auto) 3.0, Absolute Lymphs (auto) 0.64 L, Nucleated RBC % 0, Sodium 142, Potassium 3.8, Chloride 111 H, Carbon Dioxide 30.0, Anion Gap 1 L, BUN 18, C reatinine 1.34 H, Estim Creat Clear Calc 52.61, Est GFR (MDRD) Af Amer 49 L, Est GFR (MDRD) Non-Af 41 L, BUN/Creatinine Ratio 13.4, Glucose 96, Calcium 9.2 Microbiology: Microbiology 02/26/24 12:32 Wound - Abdominal Gram Stain - Final 02/26/24 12:32 Wound - Abdominal Wound Culture - Preliminary Pseudomonas aeruginosa ESBL Escherichia coli Enterococcus faecalis Enterococcus avium Enterococcus faecium Coag Negative Staph 02/25/24 23:43 Blood Culture (Wb) - Left Forearm Blood Culture - Preliminary No growth in 48 hours. 02/25/24 23:30 Blood Culture (Wb) - Left Hand Blood Culture - Preliminary No growth in 48 hours. 02/25/24 20:12 Urine Catheter - Catheter Urine Culture - Final Yeast, not Vanesa albicans D/C Instructions DC O2, CPAP, BIPAP Needs Home O2 Discharge instructions: Yes Type of respiratory needs?: Oxygen Oxygen frequency: Continuous Continuous oxygen liters per minute: 2 DC home with Oxygen: Yes Home O2 MD Review: I have reviewed the oxygen testing, and the patient qualifies for home oxygen equipment and portability. The patient is mobile in the home and the community. Meaningful Use Info Meaningful Use Meaningful Use Diagnoses (Choose all that apply): None applicable Ischemic Stroke Statin Dosing Therapy Reference: STATIN DOSE THERAPY REFERENCE: * Patients > 75 years receive moderate or high dose statin therapy. * Patients 75 years or YOUNGER should receive HIGH intensity statin dose unless contraindicated. You will be required to document reason for non-treatment if statin daily dose does not meet guidelines. HIGH DOSE STATIN THERAPY DAILY Atorvastatin > than or = to 40 mg Rosuvastatin > than or = to 20 mg Amlodipine + Atorvastatin > than or = to 2.5/40 mg Ezetimibe + Simvastatin 10/80 mg Simvastatin 80mg Discharge Plan Admission Admit Date/Time: 02/26/24 08:31 Attending Provider: Jenna Dyer Primary Care Provider: Sandrine Mireles Consulting Providers: Hari Alfonso Discharge Orders/Prescriptions Prescriptions: No Action pantoprazole 40 mg tablet,delayed release (DR/EC) 40 mg PO DAILY ergocalciferol (vitamin D2) 50,000 UNIT capsule 50,000 unit PO MAZA Patient Comments: take 1 capsule by mouth every week on sundays fluoxetine 20 MG capsule 20 mg PO DAILY Patient Comments: depression rosuvastatin [Crestor] 5 mg Tablet 5 mg PO QHS furosemide 40 mg tablet 20 mg PO DAILY PRN (Reason: diuretic) Renal Caps 1 mg capsule 1 cap PO DAILY albuterol sulfate 90 mcg/actuation aerosol powdr breath activated 2 inh inhalation .000 PRN (Reason: shortness of breath) ammonium lactate [Skin Treatment] 12 % lotion 1 applic topical DAILY PRN (Reason: dry skin) Patient Comments: APPLIES TO LEGS amiodarone 200 mg Tablet 200 mg PO DAILY Qty: 0 0RF sennosides-docusate sodium [Stool Softener-Stimulant Laxat] 8.6-50 mg Tablet 2 tab PO BID PRN (Reason: constipation) Rx Instructions: Available [id number]. Eliquis 5 mg tablet 5 mg PO BID Trelegy Ellipta 100-62.5-25 mcg blister with device 1 ea INHALATION DAILY Azo Cranberry 250 mg tablet,chewable 250 mg PO DAILY L.acidoph,saliva-B.bif-S.therm 175 mg Capsule 1 cap PO DAILY Rx Instructions: At least till the patient finishes the antibiotic. Available OTC Referrals / Follow Up: Sandrine Mireles MD [Primary Care Provider] - Disposition Disposition (needs filled in before D/C Order can be placed): [facility]
--- NOTE | 2024-02-29 17:12 | NURSING ---
Report given to STUART Muñiz of [facility] at 17:10.
[2024-02-29] MEDS: Vancomycin HCl 2,000 MG in 0.9% Normal Saline (500mL Bag) 500 ML 250 MG IV (17:59)
--- NOTE | 2024-02-29 18:22 | PHA.PHARE_ITS ---
Consult Antibiotic Management Pharmacy has been consulted to manage selected antibiotic: Vancomycin Type of Intervention Type of Consult: New start Suspected Infection Suspected Infection: Skin/Soft tissue Labs Labs: Sodium 142 mmol/L (136-145) 02/29/24 06:10 Potassium 3.8 mmol/L (3.5-5.1) 02/29/24 06:10 Chloride 111 mmol/L (98-107) H 02/29/24 06:10 Carbon Dioxide 30.0 mmol/L (21.0-32.0) 02/29/24 06:10 Anion Gap 1 (5-15) L 02/29/24 06:10 BUN 18 mg/dL (7-18) 02/29/24 06:10 Creatinine 1.34 mg/dL (0.55-1.02) H 02/29/24 06:10 Est GFR (MDRD) Af Amer 49 mL/min (>60) L 02/29/24 06:10 Est GFR (MDRD) Non-Af 41 mL/min (>60) L 02/29/24 06:10 BUN/Creatinine Ratio 13.4 RATIO (10-20) 02/29/24 06:10 Glucose 96 mg/dL (74-106) 02/29/24 06:10 Microbiology Microbiology: Microbiology 02/26/24 12:32 Wound - Abdominal Gram Stain - Final 02/26/24 12:32 Wound - Abdominal Wound Culture - Preliminary Pseudomonas aeruginosa ESBL Escherichia coli Enterococcus faecalis Enterococcus avium Enterococcus faecium Coag Negative Staph 02/25/24 23:43 Blood Culture (Wb) - Left Forearm Blood Culture - Preliminary No growth in 48 hours. 02/25/24 23:30 Blood Culture (Wb) - Left Hand Blood Culture - Preliminary No growth in 48 hours. 02/25/24 20:12 Urine Catheter - Catheter Urine Culture - Final Yeast, not Vanesa albicans Dosing Weight Weight used for dosin kg Estimated Creatinine Clearance Estimated Creatinine Clearance: 53 ML/MIN Goal Trough Goal Trough: 15-20 mcg/mL Pharmacy Plan for Drug Dosing Pharmacy Plan for Drug Dosing: Give vanc 2000mg IV x1 load, then continue with 1250mg q12h per [facility] dosing protocol. Check a trough before the 4th overall dose. Pharmacy Service will continue to monitor and adjust dosing as required. Follow-Up Labs Follow-Up Labs: Trough: Vancomycin Date/Time Labs Ordered Labs to be done on [date and time ordered]: 03/02/24 05:30
== END 2024-02-29 20:19 | disposition short-term general hospital (02) | DRG 623 ==
LOC: ED 02-26 07:56 → PCU 02-26 20:59
PROVIDERS: Admitting Provider Internal Medicine; Emergency Provider Emergency Medicine; PCP Internal Medicine; Visit Provider Internal Medicine
DX: E11.622 Type 2 diabetes mellitus with other skin ulcer (principal); I96 Gangrene, not elsewhere classified; L03.311 Cellulitis of abdominal wall; Z68.43 Body mass index [BMI] 50.0-59.9, adult; Z16.35 Resistance to multiple antimicrobial drugs; B96.5 Pseudomonas (aeruginosa) (mallei) (pseudomallei) as the cause of diseases classified elsewhere; B95.2 Enterococcus as the cause of diseases classified elsewhere; E11.22 Type 2 diabetes mellitus with diabetic chronic kidney disease; B96.20 Unspecified Escherichia coli [E. coli] as the cause of diseases classified elsewhere; J44.9 Chronic obstructive pulmonary disease, unspecified; N18.32 Chronic kidney disease, stage 3b; I12.9 Hypertensive chronic kidney disease with stage 1 through stage 4 chronic kidney disease, or unspecified chronic kidney disease; F32.A Depression, unspecified; E11.628 Type 2 diabetes mellitus with other skin complications; M79.3 Panniculitis, unspecified; L98.492 Non-pressure chronic ulcer of skin of other sites with fat layer exposed; E66.01 Morbid (severe) obesity due to excess calories; K21.9 Gastro-esophageal reflux disease without esophagitis; G47.33 Obstructive sleep apnea (adult) (pediatric); I44.0 Atrioventricular block, first degree; F41.9 Anxiety disorder, unspecified; B96.89 Other specified bacterial agents as the cause of diseases classified elsewhere; Z79.01 Long term (current) use of anticoagulants; Z90.49 Acquired absence of other specified parts of digestive tract; Z87.440 Personal history of urinary (tract) infections; Z86.718 Personal history of other venous thrombosis and embolism; Z86.711 Personal history of pulmonary embolism; Z79.899 Other long term (current) drug therapy
CPT/HCPCS: 36415; 71046; 71250; 74176; 80048; 80053; 81001; 82962; 83605; 85025; 87040; 87070; 87077; 87086; 87088; 87184; 87186; 87205; 87640; 93005; 94640; 94668; 97116; 97162; 97166; 97530; 97535; 99285; J2185; P9612; A4216

== ENCOUNTER 2024-03-10 16:23 | Inpatient (IN) | payer MEDICARE, OTHER, SELFPAY ==
[2024-03-10] VITALS (7 sets, daily range): BP systolic 106–145; BP diastolic 37–57; PULSE 84–93; RESP 16–24; TEMP 36.8–37.3; O2SAT 95–98; BMI 52.0; BMI 50.5
--- NOTE | 2024-03-10 17:56 | EKG12_ITS ---
Test Reason : Blood Pressure : */* mmHG Vent. Rate : 92 BPM Atrial Rate : 92 BPM P-R Int : 270 ms QRS Dur : 84 ms QT Int : 356 ms P-R-T Axes : 63 -7 54 degrees QTcB Int : 440 ms Sinus rhythm with 1st degree A-V block Otherwise normal ECG Confirmed by ROSALIE GARRETT, FRANCIS ([id number]), marketing editor JOSELIN SMART ([id number]) on 03/16/2024 7:11:12 AM Referred By: SHAUNNA Confirmed By: FRANCIS WIGGINS MD
[2024-03-10 18:40] LABS: Mucous, Urine 0 SEEN /hpf (<or=2+)
[2024-03-10 18:43] LABS: Color, Urine Straw (Yellow); Glucose, Dipstick Normal (Normal); Ketone-Dipstick Negative (Negative); Leukocyte Esterase-Dipstick 500 /ul (Negative); Nitrite-Dipstick Negative (Negative); Occult Blood-Urine 250 /ul (Negative); Protein-Dipstick 30 mg/dl (Negative); Urine Bilirubin Dipstick Negative (Negative); Urine Clarity Cloudy (Clear); Urine Urobilinogen 4 mg/dl (Normal)
[2024-03-10 18:51] LABS: Bacteria 2+ /hpf (None Seen); Red Blood Cells-Urine > 100 SEEN /hpf (0-5); Renal Epithelial Cells 0-5 SEEN /hpf (0-5); Squamous Epithelial Cells - UA 0-5 SEEN /hpf (5-10); White Blood Cells 10-25 SEEN /hpf (0-5)
--- NOTE | 2024-03-10 19:09 | RAD_ITS ---
STUDY: X-RAY CHEST REASON FOR EXAM: Female, 78 years old. fever TECHNIQUE: Single AP portable view of the chest. COMPARISON: February 25, 2024 FINDINGS: There are monitoring devices. There are mild right lower lung opacities with consolidation and small pleural effusion. There is mild cardiac enlargement. Normal mediastinum and raghav. Normal visualized pulmonary arteries. Normal visualized aortic arch and descending thoracic aorta. There is postoperative change in the hardware in the lower thoracic and upper lumbar spine. There is degenerative osteoarthritis of the bilateral shoulders. There is no demonstrated abnormality of the visualized soft tissue structures of the upper abdomen. RAD/Chest 1 View (Portable) IMPRESSION: Right lower lung infiltrate and pleural effusion. Electronically Signed: Luis Miguel Armendariz MD at 21:19 EST ,
[2024-03-10 19:40] LABS: Absolute Lymphocyte Count 0.27 X10^3/uL (0.83-4.51); Absolute Neutrophil Count 21.7 X10^3/uL (2.0-7.7); Basophil# 0.05 X10^3/uL; Basophil% 0.2 % (0-1); Eosinophil# 0.29 X10^3/uL; Eosinophils% 1.3 % (0-5); Hematocrit 36.2 % (37-47); Hemoglobin 11.6 g/dL (12.0-15.0); Lymphocyte # 0.27 X10^3/ul (0.83-4.51); Lymphocyte % 1.2 % (19-41); Mean Corpuscular Hgb 29.7 pg (27.0-32.0); Mean Corpuscular Volume 92.8 fL (81-99); Mean Platelet Vol. 11.6 fl (6.2-12.0); Monocyte# 0.53 X10^3/uL; Monocyte% 2.3 % (0-10); NRBC Flagged by Analyzer 0 % (0-5); Neutrophil # 21.68 X10^3/uL (2.7-7.7); POSITIVE DIFFERENTIAL YES; Platelet Count 161 K/mm3 (150-450); RBC Distribution Width CV 15.9 % (11.6-14.6); RBC Distribution Width SD 52.9 fl (35.1-43.9); White Blood Count 23.1 K/mm3 (4.4-11.0)
[2024-03-10 19:43] LABS: Differential Indicated SCAN CRITERIA MET
[2024-03-10 19:51] LABS: International Normalized Ratio 1.5; Partial Thromboplast Time 33.9 Seconds (24.1-36.2); Prothrombin Time (Protime)PT. 18.1 SECONDS (11.7-14.9)
[2024-03-10 20:02] LABS: Lactic Acid 1.4 mmol/L (0.4-1.9)
[2024-03-10 20:03] LABS: ALB/GLOB Ratio 0.7 RATIO (0.9-2.4); AST(SGOT) 20 U/L (15-37); Alanine Aminotransfer ALT/SGPT 40 U/L (13-56); Albumin, Serum 2.6 g/dL (3.2-5.0); Alkaline Phosphatase 88 U/L (45-117); Anion Gap 6 (5-15); BUN 19 mg/dL (7-18); BUN/Creat Ratio 13.1 RATIO (10-20); Calcium,Total 9.5 mg/dL (8.5-10.1); Chloride 107 mmol/L (98-107); Creatinine, Serum 1.45 mg/dL (0.55-1.02); EST Glomerular Filtration Rate 37 mL/min (>60); Est Glom Filt Rate - Afr Amer 45 mL/min (>60); Globulin 3.5 g/dL (2.2-4.2); Glucose 105 mg/dL (74-106); Potassium 3.9 mmol/L (3.5-5.1); Protein, Total 6.1 g/dL (6.4-8.2); Sodium Level 143 mmol/L (136-145)
[2024-03-10 20:17] LABS: Differential Comment SCANNED
[2024-03-10] MEDS: 0.9% Normal Saline (1000mL) 1,000 ML 999 ML IV (20:54)
[2024-03-10] MEDS: Acetaminophen 325 MG Tablet 650 MG PO (20:54)
--- NOTE | 2024-03-10 21:29 | HP.PCM.HOS_ITS ---
HPI - General General Date of Admission: 03/10/24 Date of Service: 03/10/24 Chief Complaint: Fever, blood in her urine. HPI Narrative The patient is a 77 y/o F w/ PMHx: CKD stage IIIb based on prior notes, Morbid obesity, PAF, ROBBI on BIPAP q HS, Diabetes mellitus type II, Hx VTE (DVT, BL PE), COPD w/ Chronic Hypoxic Respiratory Failure 2L NC, Chronic anemia, Anxiety and Depression, GERD, Chronic lower pannus abdominal wound with complicated recent admission requiring eventual transfer to however no intervention undertaken aside from local wound care with eventual de-escalation off abx and planned ongoing outpatient evaluation with Plastic surgery Dr. Alfonso who presents to the [facility] ED on 03/10/24 with history of onset fatigue, malaise, chills and fevers in addition to dysuria and hematuria on day of presentation and given history prompted quick early evaluation to be cautious. Workup in the ED included T99, heart rate 93, BP 144/57, respiratory rate 22, 95% on 3 L nasal cannula eventually improving to 95% on 2 L nasal cannula which looks like potentially her chronic supplementation from most recent 02/29/24 vitals prior with most recent repeat vitals in the ED T99.2, heart rate 86, BP 106/49, respiratory rate 18, 95% on 2 L, CBC with WBC 23.1, hemoglobin 0.6, MCV 92.8, platelet 161 with left shift and lymphopenia, coags with PT 18.1 otherwise unremarkable, BUN/creat 19/1.45, GFR 37, lactic acid 1.4, urinalysis with cloudy appearing urine, specific cavity 1.010, protein 30, occult blood 250, nitrate negative, leukocyte esterase 500, urine RBCs greater than 100, urine WBCs 10-25 with 2+ urine bacteria, urine culture pending per ED, blood culture x 2 pending per ED, chest x-ray with right lower lung infiltrate and pleural effusion concern. In the ED patient administered 1L NS and tylenol in addition to following discussion and review of previous cultures with ED physician IV meropenem and IV vancomycin. [facility] Medical History Multiple drug resistant organism (MDRO) culture positive ESBL (extended spectrum beta-lactamase) producing bacteria infection Chronic kidney disease Bacteremia due to Escherichia coli Morbid obesity CKD (chronic kidney disease), stage IV GERD (gastroesophageal reflux disease) History of venous thromboembolism Anxiety and depression Chronic anemia ROBBI treated with BiPAP UTI (urinary tract infection) Abdominal pannus Open abdominal wall wound Type 2 diabetes mellitus Chronic obstructive pulmonary disease with hypoxia Bilateral pulmonary embolism (07/2014) Postoperative atrial fibrillation (06/2014) Essential hypertension Multiple thyroid nodules Osteomyelitis of cervical spine Home Medications ?Medication ?Instructions ?Recorded ?Last Taken ?Type ergocalciferol (vitamin D2) 1,250 50,000 unit PO MAZA SUPPLEMENT 02/25/20 04/15/23 History mcg (50,000 unit) capsule fluoxetine 20 mg capsule 20 mg PO DAILY DEPRESSION 02/25/20 02/25/20 History rosuvastatin 5 mg tablet (Crestor) 5 mg PO QHS cholesterol 01/16/21 Unknown History pantoprazole 40 mg tablet,delayed 40 mg PO DAILY reflux 03/12/21 Unknown History release amiodarone 200 mg tablet 200 mg PO DAILY heart rate #0 tabs 02/26/23 04/15/23 Rx albuterol sulfate 90 mcg/actuation 2 inh inhalation .000 PRN 03/27/23 04/16/23 08:22 History breath activated powder inhaler shortness of breath ammonium lactate 12 % lotion (Skin 1 applic topical DAILY PRN dry skin 03/27/23 Unknown History Treatment) furosemide 40 mg tablet 20 mg PO DAILY PRN diuretic 03/27/23 04/15/23 History vitamin B complex and vitamin C 1 cap PO DAILY vitamin 03/27/23 Unknown History no.20-folic acid 1 mg capsule (Renal Caps) sennosides 8.6 mg-docusate sodium 2 tab PO BID PRN constipation 06/25/23 Unknown History 50 mg tablet (Stool Softener-Stimulant Laxative) L.acidophil,salivari-Bifido 1 cap PO DAILY 01/28/24 Unknown History bifidum-Strep thermoph 175 mg capsule apixaban 5 mg tablet (Eliquis) 5 mg PO BID 01/28/24 Unknown History cranberry fruit concentrate 250 mg 250 mg PO DAILY 01/28/24 Unknown History chewable tablet (Azo Cranberry) fluticasone fur. 100 mcg-umeclid 1 ea inhalation DAILY 01/28/24 Unknown History 62.5 mcg-vilant 25 mcg inhalat.powder (Trelegy Ellipta) Allergy/AdvReac Type Severity Reaction Status Date / Time piperacillin (From Zosyn) Allergy Mild Angioedema Verified 03/10/24 16:26 tazobactam (From Zosyn) Allergy Mild Angioedema Verified 03/10/24 16:26 aspartame Allergy EDEMA Verified 03/10/24 16:26 ibuprofen Allergy Shortness Verified 03/10/24 16:26 of breath oxycodone HCl (From Percocet) Allergy dizziness Verified 03/10/24 16:26 procaine (From Novocain) Allergy Other Verified 03/10/24 16:26 Family History Father Diabetes Mother CAD (coronary artery disease) Heart disease Hypertension Myocardial infarction Surgical History History of spinal fusion History of cholecystectomy History of Social History household members: family Smoking Status: Never smoker alcohol intake: never substance use type: does not use ROS ROS Narrative Admission Review of Systems: CONSTITUTIONAL: No weight loss, + fever, chills, weakness or fatigue. HEENT: Eyes: No visual loss, blurred vision, double vision or yellow sclerae. Ears, Nose, Throat: No hearing loss, sneezing, congestion, runny nose or sore throat. SKIN: No rash or itching, lesions, wounds except + significant bilateral lower extremity chronic venous stasis skin changes, abrasions, very staged ecchymoses, chronic pannus midline wound following with wound care. CARDIOVASCULAR: + Chronic edema. No chest pain, chest pressure or chest discomfort, palpitations, orthopnea, syncopal events. RESPIRATORY: + Chronic dyspnea worse with exertion, n chronic nonproductive cough, occasional wheezing. No hemoptysis. GASTROINTESTINAL: No anorexia, nausea, vomiting or diarrhea, abdominal pain, melena, BRBPR. GENITOURINARY: + Increased urinary frequency, hematuria, mild dysuria. No flank pain, urgency or retention. NEUROLOGICAL: No headache, dizziness, syncope, paralysis, ataxia, numbness or tingling in the extremities, focal weakness, change in bowel or bladder control, seizure. MUSCULOSKELETAL: + muscle, back pain, joint pain or stiffness. HEMATOLOGIC: + Chronic anemia, easy bleeding/bruising. LYMPHATICS: No enlarged nodes. No history of splenectomy. PSYCHIATRIC: + History of anxiety and depression. ENDOCRINOLOGIC: No reports of sweating, cold or heat intolerance. No polyuria or polydipsia. ALLERGIES: + History of angioedema. Vital Signs Vital Signs Vital Signs: 03/10/24 16:24 03/10/24 19:03 03/10/24 19:04 Temperature 99.0 F 99 F Temperature Source Temporal Temporal Pulse Rate 93 89 Respiratory Rate 22 H 20 H Respiratory Effort Normal Non-Labored Respiratory Pattern Normal Blood Pressure 144/57 H 145/53 H Blood Pressure Mean 86 83 Pulse Ox 95 97 Oxygen Delivery Method Nasal Cannula Nasal Cannula Oxygen Flow Rate (L/min) 3 2 03/10/24 20:00 03/10/24 21:00 03/10/24 21:10 Temperature 99.2 F H 99.2 F H Temperature Source Oral Pulse Rate 85 84 86 Respiratory Rate 16 24 H 18 Respiratory Effort Respiratory Pattern Blood Pressure 117/55 L 106/49 L 106/49 L Blood Pressure Mean 75 68 68 Pulse Ox 95 95 Oxygen Delivery Method Nasal Cannula Oxygen Flow Rate (L/min) 2 Weight Weight: 322 lb 1.526 oz Body Mass Index (BMI) 52.0 Physical Exam Narrative Physical Examination: General: Awake, alert, oriented x 3 and cooperative, seated upright in the ED bed, fatigued. Skin: Normal color, normal turgor, no icterus, no cyanosis except for bilateral lower extremity venous stasis skin changes, occasional staged ecchymoses, midline chronic pannus wound which has improved in appearance with packing removed, some bleeding resulting, no foul odor or marked discharge or any wound erythema noted. HEENT: AT/NC, EOMI, PERRLA, mildly dry MM, no carotid bruits or JVD noted; however thickened neck makes evaluation difficult. Lungs: Diminished, distant breath sounds likely secondary to habitus in part, no rales, wheezing or rhonchi. Heart: Regular rate with regular rhythm; no gallop, rub audible. Abdomen: Soft, morbidly obese, see skin, NTTP, distant BS, difficult to discern distention and HSM given habitus. Extremities: No cyanosis, no clubbing, see skin, significant ankle to mid ralph pitting edema complicated by venous stasis disease as noted. Neurological: Patient awake, alert, oriented as noted, cognitive function intact; pupils equally reactive to light and accommodation, cranial nerves grossly normal, moving all 4 extremities, no focal deficits, strength severely globally decreased. Psychiatric: Affect appears fatigued, no acute evidence of depressive or anxiety feelings but does have underlying history. Results Lab / Micro Data 03/10/24 19:30 03/10/24 19:30 Labs: Laboratory Results - last 24 hr 03/10/24 18:20: Urine Color Straw, Urine Clarity Cloudy, Urine pH 7.0, Ur Specific [place] 1.010, Urine Protein 30 H, Urine Glucose (UA) Normal, Urine Ketones Negative, Urine Occult Blood 250 H, Urine Nitrite Negative, Urine Bilirubin Negative, Urine Urobilinogen 4 H, Ur Leukocyte Esterase 500 H, Urine RBC > 100 SEEN, Urine WBC 10-25 SEEN, Ur Squamous Epith Cells 0-5 SEEN, Ur Renal Epithelial Cell 0-5 SEEN, Urine Bacteria 2+, Urine Mucus 0 SEEN 03/10/24 19:30: WBC 23.1 H, RBC 3.90 L, Hgb 11.6 L, Hct 36.2 L, MCV 92.8, MCH 29.7, MCHC 32.0, RDW Std Deviation 52.9 H, RDW Coeff of Ruben 15.9 H, Plt Count 161, MPV 11.6, Immature Gran % (Auto) 1.000 H, Neut % (Auto) 94.0 H, Lymph % (Auto) 1.2 L, Braxton % (Auto) 2.3, Eos % (Auto) 1.3, Baso % (Auto) 0.2, Absolute Neuts (auto) 21.7 H, Absolute Lymphs (auto) 0.27 L, Nucleated RBC % 0, Differential Comment SCANNED, PT 18.1 H, INR 1.5, APTT 33.9, Sodium 143, Potassium 3.9, Chloride 107, Carbon Dioxide 30.0, Anion Gap 6, BUN 19 H, C reatinine 1.45 H, Est GFR (MDRD) Af Amer 45 L, Est GFR (MDRD) Non-Af 37 L, BUN/Creatinine Ratio 13.1, Glucose 105, Lactic Acid 1.4, Calcium 9.5, Total Bilirubin 1.00, AST 20, ALT 40, Alkaline Phosphatase 88, Total Protein 6.1 L, A lbumin 2.6 L, Globulin 3.5, Albumin/Globulin Ratio 0.7 L Imaging Radiology Impression Chest X-Ray 03/10/24 19:09 IMPRESSION: Right lower lung infiltrate and pleural effusion. Electronically Signed: Luis Miguel Armendariz MD at 21:19 EST , Assessment & Plan Assessment/Plan (1) UTI (urinary tract infection): PLAN: Plan The patient is a 77 y/o F w/ PMHx: CKD stage IIIb based on prior notes, Morbid obesity, PAF, ROBBI on BIPAP q HS, Diabetes mellitus type II, Hx VTE (DVT, BL PE), COPD w/ Chronic Hypoxic Respiratory Failure 2L NC, Chronic anemia, Anxiety and Depression, GERD, Chronic lower pannus abdominal wound with complicated recent admission requiring eventual transfer to however no intervention undertaken aside from local wound care with eventual de-escalation off abx and planned ongoing outpatient evaluation with Plastic surgery Dr. Alfonso who presents to the [facility] ED on 03/10/24 with history of onset of fever as well as mild dysuria and hematuria prompting ED evaluation. #1. Acute Complicated Urinary Tract Infection w/ ESBL E. Coli history with notable resistance patterns complicated by co-morbidities: Will admit to [facility] upon ED evaluation remarkable, pending UCx, will continue judicious IVFs, monitor I/Os, continue IV Meropenem and IV Vancomycin based on most recent UCx 06/25/2023 with ESBL E. coli and Enterococcus w/ transition as able pending sensitivities and speciation. Infectious disease consulted given complexity of resistance patterns/history. Bld cx x 2 obtained in the ED. PT/OT/case management consulted for discharge planning. #2. Chronic abdominal wound: Well appearing with no acute infection suspected. Patient following with plastic surgery with noted upcoming visit, will continue Vashe soaked Kerlix packing pending wound RN evaluation and per patient and family request will request plastic surgery Dr. Alfonso evaluation while inpatient. #3. Chronic COPD with chronic hypoxic respiratory failure (2 L NC, BIPAP q HS): Will maintain on home oxygen supplementation, continue home inhalers specifically per patient and family request, PRN albuterol, HOB, IS parameters, BiPAP nightly. #4. Chronic Kidney Disease Stage IIIb per previous admission chart reporting: Admission BUN/Cr 19/1.45, GFR 37, baseline renal function 1.4-1.9, repeat CMP in AM. #5. Diabetes mellitus type II with chronic neuropathy: Per current list does not appear to be on regimen, hemoglobin A1c requested, in the interim will maintain on ADA diet, accu checks w/ ISS. #6. PAF: We will continue patient amiodarone, continue home Eliquis regimen. #7. Chronic anemia, normocytic: Admission hemoglobin 11.6, MCV 92.8, baseline hemoglobin more recently had been in the 9 range but has vacillated, will continue to trend. #8. Hypertension: Previously on metoprolol, on Lasix as needed only, BP normal range upon presentation, in the interim will only maintain on PRN hydralazine. #9. Hyperlipidemia: We will continue patient on statin therapy. #10. Morbid Obesity: Weight loss and lifestyle changes encouraged. #11. Anxiety and depression: We will continue patient home fluoxetine regimen. #12. History of VTE: Noted DVT, bilateral PE history, continue home Eliquis regimen. #13. GERD: We will continue patient on PPI. #14. ROBBI: BIPAP q HS. #15. DVT prophylaxis: Continue home Eliquis regimen. #16. CODE status: Patient RUDDY is her daughter Neema who is present and living will is currently in place. Full Code status. Charges/Coding Visit Charges Inpatient E&M: 13633 Init Hosp L3
--- NOTE | 2024-03-10 22:27 | EX.ED.DYSGE1 ---
HPI History of Present Illness Chief Complaint: Complaint Informant: patient and family Narrative Narrative: Patient is a 78-year-old female with recent hospitalizations for panniculitis and UTIs presenting with fever starting today as well as hematuria. Patient was just recently discharged from [facility] were she was transferred from our facility for panniculitis and infected wound. She follows with Dr. Alfonso for wound management here. Spoke with the daughter on the phone who also notes that redness of her pannus seems slightly worse but attributed that to her fever. Daughter states that she was doing well for about 4 days and then worsened today acutely. Has been having hematuria for the past 2 days. Followed up with her primary care doctor and send urine sample on Friday. The culture still pending. I did receive Tylenol 1000 mg at 2:45 PM. Is currently complaining of throbbing headache and neck ache which she states she gets when she has a headache. Denies any dysuria at this time. [facility] Medical History Multiple drug resistant organism (MDRO) culture positive ESBL (extended spectrum beta-lactamase) producing bacteria infection Chronic kidney disease Bacteremia due to Escherichia coli Morbid obesity CKD (chronic kidney disease), stage IV GERD (gastroesophageal reflux disease) History of venous thromboembolism Anxiety and depression Chronic anemia ROBBI treated with BiPAP UTI (urinary tract infection) Abdominal pannus Open abdominal wall wound Type 2 diabetes mellitus Chronic obstructive pulmonary disease with hypoxia Bilateral pulmonary embolism (07/2014) Postoperative atrial fibrillation (06/2014) Essential hypertension Multiple thyroid nodules Osteomyelitis of cervical spine Home Medications ?Medication ?Instructions ?Recorded ?Last Taken ?Type ergocalciferol (vitamin D2) 1,250 50,000 unit PO MAZA SUPPLEMENT 02/25/20 04/15/23 History mcg (50,000 unit) capsule fluoxetine 20 mg capsule 20 mg PO DAILY DEPRESSION 02/25/20 02/25/20 History rosuvastatin 5 mg tablet (Crestor) 5 mg PO QHS cholesterol 01/16/21 Unknown History pantoprazole 40 mg tablet,delayed 40 mg PO DAILY reflux 03/12/21 Unknown History release amiodarone 200 mg tablet 200 mg PO DAILY heart rate #0 tabs 02/26/23 04/15/23 Rx albuterol sulfate 90 mcg/actuation 2 inh inhalation .000 PRN 03/27/23 04/16/23 08:22 History breath activated powder inhaler shortness of breath ammonium lactate 12 % lotion (Skin 1 applic topical DAILY PRN dry skin 03/27/23 Unknown History Treatment) furosemide 40 mg tablet 20 mg PO DAILY PRN diuretic 03/27/23 04/15/23 History vitamin B complex and vitamin C 1 cap PO DAILY vitamin 03/27/23 Unknown History no.20-folic acid 1 mg capsule (Renal Caps) sennosides 8.6 mg-docusate sodium 2 tab PO BID PRN constipation 06/25/23 Unknown History 50 mg tablet (Stool Softener-Stimulant Laxative) L.acidophil,salivari-Bifido 1 cap PO DAILY 01/28/24 Unknown History bifidum-Strep thermoph 175 mg capsule apixaban 5 mg tablet (Eliquis) 5 mg PO BID 01/28/24 Unknown History cranberry fruit concentrate 250 mg 250 mg PO DAILY 01/28/24 Unknown History chewable tablet (Azo Cranberry) fluticasone fur. 100 mcg-umeclid 1 ea inhalation DAILY 01/28/24 Unknown History 62.5 mcg-vilant 25 mcg inhalat.powder (Trelegy Ellipta) Allergy/AdvReac Type Severity Reaction Status Date / Time piperacillin (From Zosyn) Allergy Mild Angioedema Verified 03/10/24 16:26 tazobactam (From Zosyn) Allergy Mild Angioedema Verified 03/10/24 16:26 aspartame Allergy EDEMA Verified 03/10/24 16:26 ibuprofen Allergy Shortness Verified 03/10/24 16:26 of breath oxycodone HCl (From Percocet) Allergy dizziness Verified 03/10/24 16:26 procaine (From Novocain) Allergy Other Verified 03/10/24 16:26 Family History Father Diabetes Mother CAD (coronary artery disease) Heart disease Hypertension Myocardial infarction Surgical History History of spinal fusion History of cholecystectomy History of Social History household members: family Smoking Status: Never smoker alcohol intake: never substance use type: does not use ROS ROS ED Constitutional Constitutional ED: Reports chills and fever(s) Respiratory/Chest Respiratory/Chest: Denies cough or dyspnea Gastrointestinal Gastrointestinal: Denies nausea or vomiting Genitourinary Genitourinary ED: Reports hematuria; Denies dysuria Integumentary Reports other Details: Pannus wound?chronic, no acute changes Neurologic Neurologic: Reports weakness Hematologic/Lymphatic Hematologic/Lymphatic: Reports easy bleeding, easy bruising and other Details: On Eliquis EXAM Physical Exam Const Vital Signs: 03/10/24 16:24 03/10/24 19:03 03/10/24 19:04 Temperature 99.0 F 99 F Temperature Source Temporal Temporal Pulse Rate 93 89 Respiratory Rate 22 H 20 H Respiratory Effort Normal Non-Labored Respiratory Pattern Normal Blood Pressure 144/57 H 145/53 H Blood Pressure Mean 86 83 Pulse Ox 95 97 Oxygen Delivery Method Nasal Cannula Nasal Cannula Oxygen Flow Rate (L/min) 3 2 03/10/24 20:00 03/10/24 21:00 03/10/24 21:10 Temperature 99.2 F H 99.2 F H Temperature Source Oral Pulse Rate 85 84 86 Respiratory Rate 16 24 H 18 Respiratory Effort Respiratory Pattern Blood Pressure 117/55 L 106/49 L 106/49 L Blood Pressure Mean 75 68 68 Pulse Ox 95 95 Oxygen Delivery Method Nasal Cannula Oxygen Flow Rate (L/min) 2 03/10/24 22:00 03/10/24 22:00 Temperature 992 F H Temperature Source Oral Pulse Rate 86 Respiratory Rate 20 H 20 H Respiratory Effort Respiratory Pattern Blood Pressure 108/37 L Blood Pressure Mean 60 Pulse Ox 97 Oxygen Delivery Method Nasal Cannula Oxygen Flow Rate (L/min) 2 Positive obese Constitutional Narrative: Chronically ill-appearing General Appearance ED: NAD Nutritional Appearance: obese HEENT Reports moist mucous membranes Eyes PERRL Neck supple Chest Wall inspection of chest normal Resp normal respiratory effort and clear to auscultation bilaterally Auscultation: Negative for rales or rhonchi Cardio regular rate and regular rhythm Cardio Narrative: Murmur present GI normal to inspection, nondistended, normoactive bowel sounds and non-tender Extremity normal to inspection General Extremety ED: Negative for edema General Extremity: Negative for edema Neuro oriented x3 Sensorium / Orientation: alert Motor Exam: general weakness Psych mental status grossly normal Skin Skin Narrative: Chronic wound to the underside of the pannus that appears clean. Mild bleeding when packing is removed. No associated purulent drainage or granulation tissue present. Patient does have erythema with chronic induration to her abdominal wall/pannus. MDM MDM MDM Narrative Medical decision making narrative: Patient is evaluated for fever and chills that started today. She developed hematuria 2 days ago. I does have a history of urinary tract infections has had multiple recent admissions over the past month for abdominal wall wound/panniculitis. Has a history of multiple drug-resistant organism cultures. Patient has a low-grade temperature of 99.2 in the emergency room. She has a pretty profound leukocytosis with white blood cell count of 23.1 and a left shift. White blood cell count is significantly elevated compared to 02/28 where she was 5.0. She has a mild renal insufficiency with a creatinine of 1.45 with this that she appears to be her baseline. No other significant Zee abnormalities. Urinalysis does show 500 leukocyte esterase as well as greater than 100 white blood cells and 2+ bacteria on catheterization samples. Spec she has a urinary tract infection. Prior urine and wound cultures are reviewed and she does have a history of ESBL E. coli. Given her comorbidities and history of pretty severe sepsis/antibiotic resistance I will admit for IV antibiotics. After review of prior cultures, patient's medication allergies and discussion with hospitalist will start the patient on vancomycin and meropenem. Also discussed with the patient's daughter on the phone for plan of care. Patient daughter agreeable with this. Patient is given a liter of IV fluids in the emergency room as well. Of note chest x-ray on my review did not show any acute process but was of poor inspiratory effort. Radiology read as infiltrate. I do not suspect pneumonia but will continue to monitor and patient is on her baseline oxygen.. This was discussed with hospitalist who is in agreement. Lab Data Attestation: I reviewed the patient's lab results. Labs: Laboratory Results - last 24 hr 03/10/24 03/10/24 18:20 19:30 WBC 23.1 H RBC 3.90 L Hgb 11.6 L Hct 36.2 L MCV 92.8 MCH 29.7 MCHC 32.0 RDW Std Deviation 52.9 H RDW Coeff of Ruben 15.9 H Plt Count 161 MPV 11.6 Immature Gran % (Auto) 1.000 H Neut % (Auto) 94.0 H Lymph % (Auto) 1.2 L [place] % (Auto) 2.3 Eos % (Auto) 1.3 Baso % (Auto) 0.2 Absolute Neuts (auto) 21.7 H Absolute Lymphs (auto) 0.27 L Nucleated RBC % 0 Differential Comment SCANNED PT 18.1 H INR 1.5 APTT 33.9 Sodium 143 Potassium 3.9 Chloride 107 Carbon Dioxide 30.0 Anion Gap 6 BUN 19 H Creatinine 1.45 H Est GFR (MDRD) Af Amer 45 L Est GFR (MDRD) Non-Af 37 L BUN/Creatinine Ratio 13.1 Glucose 105 Lactic Acid 1.4 Calcium 9.5 Total Bilirubin 1.00 AST 20 ALT 40 Alkaline Phosphatase 88 Total Protein 6.1 L Albumin 2.6 L Globulin 3.5 Albumin/Globulin Ratio 0.7 L Urine Color Straw Urine Clarity Cloudy Urine pH 7.0 Ur Specific [place] 1.010 Urine Protein 30 H Urine Glucose (UA) Normal Urine Ketones Negative Urine Occult Blood 250 H Urine Nitrite Negative Urine Bilirubin Negative Urine Urobilinogen 4 H Ur Leukocyte Esterase 500 H Urine RBC > 100 SEEN Urine WBC 10-25 SEEN Ur Squamous Epith Cells 0-5 SEEN Ur Renal Epithelial Cell 0-5 SEEN Urine Bacteria 2+ Urine Mucus 0 SEEN Radiography Chest X-Ray - ED: 1 View, Read by ED Physician and No Infiltrates Diagnostic Testing: Clinical Impression(s) from Imaging Studies Chest X-Ray 03/10/24 19:09 IMPRESSION: Right lower lung infiltrate and pleural effusion. Electronically Signed: Luis Miguel Armendariz MD at 21:19 EST , Rhythm Strip Rhythm Strip: Sinus Rhythm Rate: 92 Ectopy: None EKG Initial EKG: Attestation: I personally reviewed and interpreted this EKG as follows: Interpretation: Sinus Rhythm Comments: Normal sinus rhythm at a rate of 92 bpm First-degree AV block with a LA interval of [address] segment Management Discussion w/another healthcare provider: Hospitalist Discharge Plan Dx/Rx/DC Orders Clinical Impression: UTI (urinary tract infection), Leukocytosis Disposition Disposition: Acute Care Hospital [facility] Discharge Date/Time: 03/10/24 23:24
[2024-03-10] MEDS: Meropenem 2 GM in 0.9% Normal Saline (100mL Bag) 100 ML IV (22:33)
[2024-03-11] VITALS (8 sets, daily range): BP systolic 105–123; BP diastolic 39–61; PULSE 64–85; RESP 16–20; TEMP 36.6–37.3; O2SAT 94–99; BMI 51.2
[2024-03-11] MEDS: Vancomycin HCl 2,000 MG in 0.9% Normal Saline (500mL Bag) 500 ML 250 MG IV (00:13)
--- NOTE | 2024-03-11 00:32 | PCM.RX.CS ---
Consult Antibiotic Management Pharmacy has been consulted to manage selected antibiotic: Vancomycin Type of Intervention Type of Consult: New start Labs Labs: Sodium 143 mmol/L (136-145) 03/10/24 19:30 Potassium 3.9 mmol/L (3.5-5.1) 03/10/24 19:30 Chloride 107 mmol/L (98-107) 03/10/24 19:30 Carbon Dioxide 30.0 mmol/L (21.0-32.0) 03/10/24 19:30 Anion Gap 6 (5-15) 03/10/24 19:30 BUN 19 mg/dL (7-18) H 03/10/24 19:30 Creatinine 1.45 mg/dL (0.55-1.02) H 03/10/24 19:30 Est GFR (MDRD) Af Amer 45 mL/min (>60) L 03/10/24 19:30 Est GFR (MDRD) Non-Af 37 mL/min (>60) L 03/10/24 19:30 BUN/Creatinine Ratio 13.1 RATIO (10-20) 03/10/24 19:30 Glucose 105 mg/dL (74-106) 03/10/24 19:30 Dosing Weight Weight used for dosin.2 kg Estimated Creatinine Clearance Estimated Creatinine Clearance: 48.9 Goal Trough Goal Trough: 15-20 mcg/mL Pharmacy Plan for Drug Dosing Pharmacy Plan for Drug Dosing: Pharmacy Service will continue to monitor and adjust dosing as required. ER DOSE OF 2000MG GIVEN 03/11 @ 0013. START 1GM Q12H AND DRAW TROUGH PRIOR TO 4TH DOSE Follow-Up Labs Follow-Up Labs: Trough: Vancomycin Date/Time Labs Ordered Labs to be done on [date and time ordered]: 03/12 @ 1200
[2024-03-11] MEDS: Acetaminophen 325 MG Tablet 650 MG PO ×3 (01:13→13:38)
[2024-03-11] MEDS: APIXABAN 5 MG TABLET PO ×3 (01:15→21:05)
[2024-03-11] MEDS: 0.9% Normal Saline (1000mL) 1,000 ML 75 ML IV (01:25)
--- NOTE | 2024-03-11 01:34 | NURSING ---
Patient refusing to have blood sugar checked and to be given insulin. She says she is not diabetic.
[2024-03-11 05:10] LABS: Absolute Lymphocyte Count 0.54 X10^3/uL (0.83-4.51); Absolute Neutrophil Count 18.5 X10^3/uL (2.0-7.7); Basophil# 0.05 X10^3/uL; Basophil% 0.3 % (0-1); Eosinophils% 0.5 % (0-5); Hemoglobin 10.1 g/dL (12.0-15.0); Lymphocyte # 0.54 X10^3/ul (0.83-4.51); Lymphocyte % 2.7 % (19-41); Mean Corp Hgb Conc 31.6 g/dL (32-36); Mean Corpuscular Hgb 29.8 pg (27.0-32.0); Mean Corpuscular Volume 94.4 fL (81-99); Mean Platelet Vol. 12.7 fl (6.2-12.0); Monocyte% 2.5 % (0-10); NRBC Flagged by Analyzer 0 % (0-5); Neutrophil # 18.52 X10^3/uL (2.7-7.7); Neutrophil % 92.9 % (47-70); POSITIVE DIFFERENTIAL YES; Platelet Count 136 K/mm3 (150-450); RBC Distribution Width CV 15.9 % (11.6-14.6); RBC Distribution Width SD 54.7 fl (35.1-43.9); Red Blood Count 3.39 M/mm3 (4.2-5.4); White Blood Count 19.9 K/mm3 (4.4-11.0)
[2024-03-11 06:11] LABS: ALB/GLOB Ratio 0.7 RATIO (0.9-2.4); AST(SGOT) 23 U/L (15-37); Alanine Aminotransfer ALT/SGPT 36 U/L (13-56); Albumin, Serum 2.2 g/dL (3.2-5.0); Alkaline Phosphatase 75 U/L (45-117); Anion Gap 5 (5-15); BUN 19 mg/dL (7-18); BUN/Creat Ratio 14.6 RATIO (10-20); Chloride 109 mmol/L (98-107); EST Glomerular Filtration Rate 42 mL/min (>60); Est Glom Filt Rate - Afr Amer 51 mL/min (>60); Estimated Creatinine Clearance 55.01 ml/min; Globulin 3.2 g/dL (2.2-4.2); Glucose 106 mg/dL (74-106); Potassium 3.9 mmol/L (3.5-5.1); Protein, Total 5.4 g/dL (6.4-8.2); Sodium Level 141 mmol/L (136-145)
--- NOTE | 2024-03-11 08:14 | EX.PCM.CON.S ---
Assessment & Plan Assessment/Plan (1) Panniculitis: (2) Skin ulcer of abdominal wall with fat layer exposed: PLAN: Plan Wound much bakeshop cleaner since last debridement. Continue Dakin's wet-to-dry 2 times per day, with care taken to keep the other skin on the pannus dry. Plastic surgery will follow while in house Continue treatment for cellulitis of pannus v. UTI. HPI Consult Data Date of Consult: 03/11/24 HPI Narrative HPI Narrative: Chief Complaint: Abdominal wound History of Wound: Nerissa Bradley is a 77-year-old female who presents to the wound healing center today for evaluation management of an abdominal wound. This wound is located in the midline under her pannus. She does have a very large pannus with significant weight. she reports that this wound has been present for approximately 1 month, first came to her attention when she was admitted to the hospital recently. She thinks it is from her wheelchair hitting against the area. At home, she relies on her daughter to assist her with wound care. Since her discharge from the hospital, they have been utilizing Aquacel they were sent home with but she did run out recently. She had been receiving antifungal powder to apply while in the hospital, but does not have this at home. She denies any history of prior wounds in this area. She does have a history of superficial wounds to the bilateral lower extremities which were also noted at the time of her most recent hospitalization early February, but seem to be resolved at this time. She does wear compression stockings. She is trying to do a better job of elevating her legs but does note she cannot lay back too far without having difficulty breathing. She is diabetic but most recent A1c in 11/2022 5.4 and do not see any active medications for diabetes. She does not smoke. She does not take any blood thinners other than aspirin. 27 October 2023: Dr. Mireles graciously referred me this very pleasant 77-year-old female for evaluation of a wound beneath her abdominal pannus in the crease. Mrs. Bradley's daughter was present on the phone during our visit we discussed her status. Their main goal from the visit today was to get follow-up for the abdominal wound beneath her pannus. She was admitted to the [facility] for her multiple comorbidities, including treatment of her COPD as well as aortic stenosis, and during this time she was treated for this wound that was developing beneath her pannus. They suggested that she follow-up with the security delivery specialist and [place] near her home. She reports that she has been doing packing with Vashe soaked Kerlix twice daily and has been putting Interdry beneath the pannus to keep the skin from becoming macerated. No recent problems with yeast. 03 Nov 2023: Doing well overall. No new complaints. No fevers/chills. No new drainage. Daughter has been helping her with the dressing changes with Vashe. 17 Nov 2023: Doing well overall. Endorses good dressing changes. No new problems 08 Dec 2023: Doing well. Compliant with wound care. Seeing Dr. Mireles tomorrow. 29 Dec 2023: New wound on abdomen today. Has not been using the pad, Interdry (ran out and needs more, they've been ordered). No fevers/chills. 12 Jan 2024: Has been using Interdry. No fevers/chills. Here today for check up 26 Jan 2024: Discharged from [facility] recently after admission for UTI. No much progress on wound. Reports high protein intake and being intentional about this. Consultation from 26 February 2024: Patient admitted for concern for cellulitis and infection, possible urinary tract infection. She has been transferred to [facility] given her multiple core morbidities. She is awaiting transfer. A CT scan of her abdomen was done and just demonstrated the soft tissue stranding and cellulitis but no fluid collections. Patient and her daughter both report worsening of the wound on her abdomen/within the fold of her pannus. Current encounter, Consultation from 11 Mar 2024: Admitted for UTI. Was recently transferred to [facility] for cellulitis around wound on pannus. No debridement or operative intervention. She as discharged home. Medicine team now getting ID involved as there is concern for another UTI and possible drug-resistant bacteria causing the UTI. Plastics being consulted for the abdominal wound. Today on the floor she has stable VS but her WBC is 19K. [facility] Medical History Multiple drug resistant organism (MDRO) culture positive ESBL (extended spectrum beta-lactamase) producing bacteria infection Chronic kidney disease Bacteremia due to Escherichia coli Morbid obesity CKD (chronic kidney disease), stage IV GERD (gastroesophageal reflux disease) History of venous thromboembolism Anxiety and depression Chronic anemia ROBBI treated with BiPAP UTI (urinary tract infection) Abdominal pannus Open abdominal wall wound Type 2 diabetes mellitus Chronic obstructive pulmonary disease with hypoxia Bilateral pulmonary embolism (07/2014) Postoperative atrial fibrillation (06/2014) Essential hypertension Multiple thyroid nodules Osteomyelitis of cervical spine Home Medications ?Medication ?Instructions ?Recorded ?Last Taken ?Type ergocalciferol (vitamin D2) 1,250 50,000 unit PO MAZA SUPPLEMENT 02/25/20 04/15/23 History mcg (50,000 unit) capsule fluoxetine 20 mg capsule 20 mg PO DAILY DEPRESSION 02/25/20 02/25/20 History rosuvastatin 5 mg tablet (Crestor) 5 mg PO QHS cholesterol 01/16/21 Unknown History pantoprazole 40 mg tablet,delayed 40 mg PO DAILY reflux 03/12/21 Unknown History release amiodarone 200 mg tablet 200 mg PO DAILY heart rate #0 tabs 02/26/23 04/15/23 Rx albuterol sulfate 90 mcg/actuation 2 inh inhalation .000 PRN 03/27/23 04/16/23 08:22 History breath activated powder inhaler shortness of breath ammonium lactate 12 % lotion (Skin 1 applic topical DAILY PRN dry skin 03/27/23 Unknown History Treatment) furosemide 40 mg tablet 20 mg PO DAILY PRN diuretic 03/27/23 04/15/23 History vitamin B complex and vitamin C 1 cap PO DAILY vitamin 03/27/23 Unknown History no.20-folic acid 1 mg capsule (Renal Caps) sennosides 8.6 mg-docusate sodium 2 tab PO BID PRN constipation 06/25/23 Unknown History 50 mg tablet (Stool Softener-Stimulant Laxative) L.acidophil,salivari-Bifido 1 cap PO DAILY 01/28/24 Unknown History bifidum-Strep thermoph 175 mg capsule apixaban 5 mg tablet (Eliquis) 5 mg PO BID 01/28/24 Unknown History cranberry fruit concentrate 250 mg 250 mg PO DAILY 01/28/24 Unknown History chewable tablet (Azo Cranberry) fluticasone fur. 100 mcg-umeclid 1 ea inhalation DAILY 01/28/24 Unknown History 62.5 mcg-vilant 25 mcg inhalat.powder (Trelegy Ellipta) Allergy/AdvReac Type Severity Reaction Status Date / Time piperacillin (From Zosyn) Allergy Mild Angioedema Verified 03/10/24 16:26 tazobactam (From Zosyn) Allergy Mild Angioedema Verified 03/10/24 16:26 aspartame Allergy EDEMA Verified 03/10/24 16:26 ibuprofen Allergy Shortness Verified 03/10/24 16:26 of breath oxycodone HCl (From Percocet) Allergy dizziness Verified 03/10/24 16:26 procaine (From Novocain) Allergy Other Verified 03/10/24 16:26 Family History Father Diabetes Mother CAD (coronary artery disease) Heart disease Hypertension Myocardial infarction Surgical History History of spinal fusion History of cholecystectomy History of Social History household members: family Smoking Status: Never smoker alcohol intake: never substance use type: does not use Physical Exam Narrative Nontoxic-appearing On supplemental oxygen 6 x 7 cm abdominal wound within the abdominal pannus fold There is necrotic eschar within the wound and it is full-thickness down to subcutaneous tissue. No fluid collections. The pannus itself has redness/induration consistent with cellulitis. Resp normal respiratory effort Resp Narrative: Supplemental o2 via [place] Lab / Micro Data 03/11/24 04:07 03/11/24 04:07 Labs: Laboratory Results - last 24 hr 03/10/24 18:20: Urine Color Straw, Urine Clarity Cloudy, Urine pH 7.0, Ur Specific [place] 1.010, Urine Protein 30 H, Urine Glucose (UA) Normal, Urine Ketones Negative, Urine Occult Blood 250 H, Urine Nitrite Negative, Urine Bilirubin Negative, Urine Urobilinogen 4 H, Ur Leukocyte Esterase 500 H, Urine RBC > 100 SEEN, Urine WBC 10-25 SEEN, Ur Squamous Epith Cells 0-5 SEEN, Ur Renal Epithelial Cell 0-5 SEEN, Urine Bacteria 2+, Urine Mucus 0 SEEN 03/10/24 19:30: WBC 23.1 H, RBC 3.90 L, Hgb 11.6 L, Hct 36.2 L, MCV 92.8, MCH 29.7, MCHC 32.0, RDW Std Deviation 52.9 H, RDW Coeff of Ruben 15.9 H, Plt Count 161, MPV 11.6, Immature Gran % (Auto) 1.000 H, Neut % (Auto) 94.0 H, Lymph % (Auto) 1.2 L, [place] % (Auto) 2.3, Eos % (Auto) 1.3, Baso % (Auto) 0.2, Absolute Neuts (auto) 21.7 H, Absolute Lymphs (auto) 0.27 L, Nucleated RBC % 0, Differential Comment SCANNED, PT 18.1 H, INR 1.5, APTT 33.9, Sodium 143, Potassium 3.9, Chloride 107, Carbon Dioxide 30.0, Anion Gap 6, BUN 19 H, Creatinine 1.45 H, Est GFR (MDRD) Af Amer 45 L, Est GFR (MDRD) Non-Af 37 L, BUN/Creatinine Ratio 13.1, Glucose 105, Lactic Acid 1.4, Calcium 9.5, Total Bilirubin 1.00, AST 20, ALT 40, Alkaline Phosphatase 88, Total Protein 6.1 L, Albumin 2.6 L, Globulin 3.5, Albumin/Globulin Ratio 0.7 L 03/11/24 04:07: WBC 19.9 H, RBC 3.39 L, Hgb 10.1 L, Hct 32.0 L, MCV 94.4, MCH 29.8, MCHC 31.6 L, RDW Std Deviation 54.7 H, RDW Coeff of Ruben 15.9 H, Plt Count 136 L, MPV 12.7 H, Immature Gran % (Auto) 1.100 H, Neut % (Auto) 92.9 H, Lymph % (Auto) 2.7 L, [place] % (Auto) 2.5, Eos % (Auto) 0.5, Baso % (Auto) 0.3, Absolute Neuts (auto) 18.5 H, Absolute Lymphs (auto) 0.54 L, Nucleated RBC % 0, Sodium 141, Potassium 3.9, Chloride 109 H, Carbon Dioxide 27.0, Anion Gap 5, BUN 19 H, Creatinine 1.30 H, Estim Creat Clear Calc 55.01, Est GFR (MDRD) Af Amer 51 L, Est GFR (MDRD) Non-Af 42 L, BUN/Creatinine Ratio 14.6, Glucose 106, Calcium 9.0, Total Bilirubin 1.30 H, AST 23, ALT 36, Alkaline Phosphatase 75, Total Protein 5.4 L, Albumin 2.2 L, Globulin 3.2, Albumin/Globulin Ratio 0.7 L Rhythm Strip Rhythm Strip: Sinus Rhythm Rate: 92 Ectopy: None Imaging Radiology Impression Chest X-Ray 03/10/24 19:09 IMPRESSION: Right lower lung infiltrate and pleural effusion. Electronically Signed: Luis Miguel Armendariz MD at 21:19 EST , Charges/Coding Multi Select Codes Visit Charges Office Visit/Consults: [id number] IP Consult L5
[2024-03-11] MEDS: Meropenem 1 GM in 0.9% Normal Saline (100mL MB+) 100 ML IV ×2 (08:59→21:04)
[2024-03-11] MEDS: Lactobacillis Acidophilus 1 CAP PO (09:22)
[2024-03-11] MEDS: Amiodarone 200 MG Tablet PO (09:23)
[2024-03-11] MEDS: FLUTICASONE/UMECLIDIN/VILANTER 1 EACH BLST.W.DEV INHALATION (09:24)
[2024-03-11] MEDS: FLUoxetine 20 MG Capsule PO (09:24)
[2024-03-11] MEDS: Folic Acid/Vitamin B Comp W-C 1 Capsule 1 CAP PO (09:24)
[2024-03-11] MEDS: Pantoprazole Sodium 40 MG Tablet PO (09:24)
[2024-03-11 09:33] LABS: Hemoglobin A1c 4.9 % (3.8-5.6)
--- NOTE | 2024-03-11 10:28 | CON.PCM.ID_ITS ---
Assessment & Plan Assessment/Plan (1) UTI (urinary tract infection): PLAN: Panniculitis appears to be resolved. Seen by Dr. Alfonso here. Will request Ucx results from PCP Dr. Mireles. Reports uti every month. Cont nguyễn with h/o esbl, will stop vanc. Will follow, thank you (2) Leukocytosis: HPI Consult Data Date of Consult: 03/11/24 HPI Narrative Reason for Consultation: uti HPI Narrative: CLAIRE PIRES, is a 78 F with obesity and recent admit for panniculitis, presented with 5 days fever, mild headache, blood in urine; sx are typical for uti for her. Abd wound has been much improved. Saw PCP, urine sent 03/08, has not been on po abx this past week. Came to ED, admitted on vanc/nguyễn, feeling a little better. Full ROS performed and neg except as noted above. [facility] Medical History Multiple drug resistant organism (MDRO) culture positive ESBL (extended spectrum beta-lactamase) producing bacteria infection Chronic kidney disease Bacteremia due to Escherichia coli Morbid obesity CKD (chronic kidney disease), stage IV GERD (gastroesophageal reflux disease) History of venous thromboembolism Anxiety and depression Chronic anemia ROBBI treated with BiPAP UTI (urinary tract infection) Abdominal pannus Open abdominal wall wound Type 2 diabetes mellitus Chronic obstructive pulmonary disease with hypoxia Bilateral pulmonary embolism (07/2014) Postoperative atrial fibrillation (06/2014) Essential hypertension Multiple thyroid nodules Osteomyelitis of cervical spine Home Medications ?Medication ?Instructions ?Recorded ?Last Taken ?Type ergocalciferol (vitamin D2) 1,250 50,000 unit PO MAZA SUPPLEMENT 02/25/20 04/15/23 History mcg (50,000 unit) capsule fluoxetine 20 mg capsule 20 mg PO DAILY DEPRESSION 02/25/20 02/25/20 History rosuvastatin 5 mg tablet (Crestor) 5 mg PO QHS cholesterol 01/16/21 Unknown History pantoprazole 40 mg tablet,delayed 40 mg PO DAILY reflux 03/12/21 Unknown History release amiodarone 200 mg tablet 200 mg PO DAILY heart rate #0 tabs 02/26/23 04/15/23 Rx albuterol sulfate 90 mcg/actuation 2 inh inhalation .000 PRN 03/27/23 04/16/23 08:22 History breath activated powder inhaler shortness of breath ammonium lactate 12 % lotion (Skin 1 applic topical DAILY PRN dry skin 03/27/23 Unknown History Treatment) furosemide 40 mg tablet 20 mg PO DAILY PRN diuretic 03/27/23 04/15/23 History vitamin B complex and vitamin C 1 cap PO DAILY vitamin 03/27/23 Unknown History no.20-folic acid 1 mg capsule (Renal Caps) sennosides 8.6 mg-docusate sodium 2 tab PO BID PRN constipation 06/25/23 Unknown History 50 mg tablet (Stool Softener-Stimulant Laxative) L.acidophil,salivari-Bifido 1 cap PO DAILY 01/28/24 Unknown History bifidum-Strep thermoph 175 mg capsule apixaban 5 mg tablet (Eliquis) 5 mg PO BID 01/28/24 Unknown History cranberry fruit concentrate 250 mg 250 mg PO DAILY 01/28/24 Unknown History chewable tablet (Azo Cranberry) fluticasone fur. 100 mcg-umeclid 1 ea inhalation DAILY 01/28/24 Unknown History 62.5 mcg-vilant 25 mcg inhalat.powder (Trelegy Ellipta) Allergy/AdvReac Type Severity Reaction Status Date / Time piperacillin (From Zosyn) Allergy Mild Angioedema Verified 03/10/24 16:26 tazobactam (From Zosyn) Allergy Mild Angioedema Verified 03/10/24 16:26 aspartame Allergy EDEMA Verified 03/10/24 16:26 ibuprofen Allergy Shortness Verified 03/10/24 16:26 of breath oxycodone HCl (From Percocet) Allergy dizziness Verified 03/10/24 16:26 procaine (From Novocain) Allergy Other Verified 03/10/24 16:26 Family History Father Diabetes Mother CAD (coronary artery disease) Heart disease Hypertension Myocardial infarction Surgical History History of spinal fusion History of cholecystectomy History of Social History household members: family Smoking Status: Never smoker alcohol intake: never substance use type: does not use Physical Exam Const alert, oriented x3 and no apparent distress General Appearance: cooperative HEENT normocephalic and head/scalp atraumatic Eyes PERRL and EOMs intact bilaterally Neck supple and No nodes Resp normal air movement and clear to auscultation bilaterally Cardio regular rate and regular rhythm GI soft to palpation, non-tender and non-distended Extremity General Extremity: edema Skin Skin Narrative: reviewed wound photos Neuro CN's II-XII intact bilaterally Lab / Micro Data Attestation: I reviewed the patient's lab results. 03/11/24 04:07 03/11/24 04:07 Labs: Laboratory Results - last 24 hr 03/10/24 18:20: Urine Color Straw, Urine Clarity Cloudy, Urine pH 7.0, Ur Specific [place] 1.010, Urine Protein 30 H, Urine Glucose (UA) Normal, Urine Ketones Negative, Urine Occult Blood 250 H, Urine Nitrite Negative, Urine Bilirubin Negative, Urine Urobilinogen 4 H, Ur Leukocyte Esterase 500 H, Urine RBC > 100 SEEN, Urine WBC 10-25 SEEN, Ur Squamous Epith Cells 0-5 SEEN, Ur Renal Epithelial Cell 0-5 SEEN, Urine Bacteria 2+, Urine Mucus 0 SEEN 03/10/24 19:30: WBC 23.1 H, RBC 3.90 L, Hgb 11.6 L, Hct 36.2 L, MCV 92.8, MCH 29.7, MCHC 32.0, RDW Std Deviation 52.9 H, RDW Coeff of Ruben 15.9 H, Plt Count 161, MPV 11.6, Immature Gran % (Auto) 1.000 H, Neut % (Auto) 94.0 H, Lymph % (Auto) 1.2 L, [place] % (Auto) 2.3, Eos % (Auto) 1.3, Baso % (Auto) 0.2, Absolute Neuts (auto) 21.7 H, Absolute Lymphs (auto) 0.27 L, Nucleated RBC % 0, Differential Comment SCANNED, PT 18.1 H, INR 1.5, APTT 33.9, Sodium 143, Potassium 3.9, Chloride 107, Carbon Dioxide 30.0, Anion Gap 6, BUN 19 H, C reatinine 1.45 H, Est GFR (MDRD) Af Amer 45 L, Est GFR (MDRD) Non-Af 37 L, BUN/Creatinine Ratio 13.1, Glucose 105, Lactic Acid 1.4, Calcium 9.5, Total Bilirubin 1.00, AST 20, ALT 40, Alkaline Phosphatase 88, Total Protein 6.1 L, A lbumin 2.6 L, Globulin 3.5, Albumin/Globulin Ratio 0.7 L 03/11/24 04:07: WBC 19.9 H, RBC 3.39 L, Hgb 10.1 L, Hct 32.0 L, MCV 94.4, MCH 29.8, MCHC 31.6 L, RDW Std Deviation 54.7 H, RDW Coeff of Ruben 15.9 H, Plt Count 136 L, MPV 12.7 H, Immature Gran % (Auto) 1.100 H, Neut % (Auto) 92.9 H, Lymph % (Auto) 2.7 L, [place] % (Auto) 2.5, Eos % (Auto) 0.5, Baso % (Auto) 0.3, Absolute Neuts (auto) 18.5 H, Absolute Lymphs (auto) 0.54 L, Nucleated RBC % 0, Sodium 141, Potassium 3.9, Chloride 109 H, Carbon Dioxide 27.0, Anion Gap 5, BUN 19 H, Creatinine 1.30 H, Estim Creat Clear Calc 55.01, Est GFR (MDRD) Af Amer 51 L, E st GFR (MDRD) Non-Af 42 L, BUN/Creatinine Ratio 14.6, Glucose 106, Hemoglobin A1c 4.9, Calcium 9.0, Total Bilirubin 1.30 H, AST 23, ALT 36, Alkaline Phosphatase 75, Total Protein 5.4 L, Albumin 2.2 L, Globulin 3.2, A lbumin/Globulin Ratio 0.7 L Micro: Microbiology 03/10/24 18:20 Urine, Clean Catch Urine Culture - Preliminary GNR lactose intern architect Rhythm Strip Rhythm Strip: Sinus Rhythm Rate: 92 Ectopy: None Imaging Radiology Impression Chest X-Ray 03/10/24 19:09 IMPRESSION: Right lower lung infiltrate and pleural effusion. Electronically Signed: Luis Miguel Armendariz MD at 21:19 EST ,
[2024-03-11] MEDS: DAKIN'S SOL HALF STRENGTH (=0.25%) TOPICAL ×2 (13:00→21:05)
--- NOTE | 2024-03-11 15:45 | CHAPLAIN ---
Type of Pastoral Visit ___ Initial Visit ___ Follow-up Visit ___ On-call Visit ___ General Patient Visit ___ Spiritual Assessment ___ Family Conference ___ Bereavement ___ Rapid Response ___ Code Blue ___ Other (describe below) Pastoral Care Referral From ___ Patient ___ Family ___ Nurse ___ Physician ___ Legal Paraprofessional ___ Hard Metals Hand Engraver ___ Other (describe below) Sacrament/Intervention ___ Active listening ___ Anointing ___ Yarsanism ___ Bereavement ___ Communion ___ Caryn exploration ___ ___ Life review ___ Prayer ___ Reconciliation ___ Sacrament of Sick ___ Supportive presence ___ Wedding ___ Other (describe below) Pastoral Comments patient is sleeping soundly and was not disturbed; left a calling card
--- NOTE | 2024-03-11 16:06 | PCM.PROGNOTE ---
Subjective Subjective Patient seen and examined. She had no active complaints and felt well. She denied any fever, chills, cough, chest pain, palpitations, dizziness, nausea, vomiting or any other symptoms. Review of systems is otherwise negative. Objective Data Objective Data Vital Signs: Vital Signs Temp Pulse Resp BP Pulse Ox O2 Del Method O2 Flow Rate 97.9 F 64 16 106/40 L 99 Nasal Cannula 2 03/11/24 13:03/11/24 13:03/11/24 13:03/11/24 13:03/11/24 13:03/11/24 13:03/11/24 13:29 Oxygen Flow Rate (L/min) 2 Oxygen Delivery Method Nasal Cannula Weight: 326 lb 4.546 oz Body Mass Index (BMI) 51.2 Intake & Output: Intake and Output for Last 24 Hours 03/09/24 03/10/24 03/11/24 23:59 23:59 23:59 Intake Total 1000 / 1140 800 / 800 Output Total 300 / 300 Balance 1000 / 1140 500 / 500 Lab / Micro Data 03/11/24 04:07 03/11/24 04:07 Labs: Laboratory Results - last 24 hr 03/10/24 18:20: Urine Color Straw, Urine Clarity Cloudy, Urine pH 7.0, Ur Specific [place] 1.010, Urine Protein 30 H, Urine Glucose (UA) Normal, Urine Ketones Negative, Urine Occult Blood 250 H, Urine Nitrite Negative, Urine Bilirubin Negative, Urine Urobilinogen 4 H, Ur Leukocyte Esterase 500 H, Urine RBC > 100 SEEN, Urine WBC 10-25 SEEN, Ur Squamous Epith Cells 0-5 SEEN, Ur Renal Epithelial Cell 0-5 SEEN, Urine Bacteria 2+, Urine Mucus 0 SEEN 03/10/24 19:30: WBC 23.1 H, RBC 3.90 L, Hgb 11.6 L, Hct 36.2 L, MCV 92.8, MCH 29.7, MCHC 32.0, RDW Std Deviation 52.9 H, RDW Coeff of Ruben 15.9 H, Plt Count 161, MPV 11.6, Immature Gran % (Auto) 1.000 H, Neut % (Auto) 94.0 H, Lymph % (Auto) 1.2 L, [place] % (Auto) 2.3, Eos % (Auto) 1.3, Baso % (Auto) 0.2, Absolute Neuts (auto) 21.7 H, Absolute Lymphs (auto) 0.27 L, Nucleated RBC % 0, Differential Comment SCANNED, PT 18.1 H, INR 1.5, APTT 33.9, Sodium 143, Potassium 3.9, Chloride 107, Carbon Dioxide 30.0, Anion Gap 6, BUN 19 H, Creatinine 1.45 H, Est GFR (MDRD) Af Amer 45 L, Est GFR (MDRD) Non-Af 37 L, BUN/Creatinine Ratio 13.1, Glucose 105, Lactic Acid 1.4, Calcium 9.5, Total Bilirubin 1.00, AST 20, ALT 40, Alkaline Phosphatase 88, Total Protein 6.1 L, Albumin 2.6 L, Globulin 3.5, Albumin/Globulin Ratio 0.7 L 03/11/24 04:07: WBC 19.9 H, RBC 3.39 L, Hgb 10.1 L, Hct 32.0 L, MCV 94.4, MCH 29.8, MCHC 31.6 L, RDW Std Deviation 54.7 H, RDW Coeff of Ruben 15.9 H, Plt Count 136 L, MPV 12.7 H, Immature Gran % (Auto) 1.100 H, Neut % (Auto) 92.9 H, Lymph % (Auto) 2.7 L, [place] % (Auto) 2.5, Eos % (Auto) 0.5, Baso % (Auto) 0.3, Absolute Neuts (auto) 18.5 H, Absolute Lymphs (auto) 0.54 L, Nucleated RBC % 0, Sodium 141, Potassium 3.9, Chloride 109 H, Carbon Dioxide 27.0, Anion Gap 5, BUN 19 H, Creatinine 1.30 H, Estim Creat Clear Calc 55.01, Est GFR (MDRD) Af Amer 51 L, Est GFR (MDRD) Non-Af 42 L, BUN/Creatinine Ratio 14.6, Glucose 106, Hemoglobin A1c 4.9, Calcium 9.0, Total Bilirubin 1.30 H, AST 23, ALT 36, Alkaline Phosphatase 75, Total Protein 5.4 L, Albumin 2.2 L, Globulin 3.2, Albumin/Globulin Ratio 0.7 L Micro: Microbiology 03/10/24 18:20 Urine, Clean Catch Urine Culture - 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 Electronically Signed: Luis Miguel Armendariz MD at 21:19 EST , Rhythm Strip Rhythm Strip: Sinus Rhythm Rate: 92 Ectopy: None Physical Exam Const alert, oriented x3 and no apparent distress Constitutional Narrative: super morbid obesity General Appearance: cooperative and well developed HEENT normocephalic, head/scalp atraumatic and moist oral mucous membranes Eyes PERRL and EOMs intact bilaterally Neck supple and no JVD Lymph Lymphatic: no lymphadenopathy noted Resp Resp Narrative: mildly diminished breath sounds bibasally, no wheezes or crackles. On 2L of oxygen by nasal canula Cardio regular rate, regular rhythm, S1 normal heart sound, S2 normal heart sound and no murmurs GI GI Narrative: morbidly obese abdomen with large abdominal pannus; unable to assess for organomegaly due to abdominal pannus. Extremity normal capillary refill, no clubbing, cyanosis or edema and no calf tenderness Skin Skin Narrative: has ulceration beneath pannus. Neuro CN's II-XII intact bilaterally, no focal motor deficits and no sensory deficits noted Motor Exam: strength 5/5 throughout and general weakness Psych thought process normal and cooperative Appearance: appropriate Assessment & Plan Assessment/Plan (1) UTI (urinary tract infection): (2) Panniculitis: (3) Leukocytosis: PLAN: Plan #UTI due to ESBL E coli admitted with a complaint of hematuria. Urinalysis showed evidence of UTI on IV vancomycin and meropenem as previous cultures grew ESBL E coli and enterococcus ID consulted. Await urine cultures. Per ID vancomycin discontinued. Continue with meropenem. #Chronic abdominal wound This is beneath the abdominal pannus. Follows with plastic surgery. Per family request plastic surgery consulted during this admission. #Chronic respiratory failure due to COPD: On 2 L of oxygen at home. Titrate oxygen to maintain saturation above 90%. Breathing treatments with bronchodilators. #CKD stage III: Monitor creatinine. Creatinine at baseline. #ROBBI: On CPAP nightly #Super morbid obesity: Complicates acute care, expected recovery and prognosis. BMI is 51.1. Charges/Coding Visit Charges Inpatient E&M: 15578 Subs Hosp L2
--- NOTE | 2024-03-11 16:21 | CASEMGMT ---
Readmission Note: Index: 02/26/24-02/29/24. Dx: Panniculitis Readmission: 03/10/24. Dx: Complicated UTI From index admission, the patient was transferred to [facility]. Pt states that Dr. Alfonso recommended this transfer during the initial admission. Pt states to this RN CM that the pt was home for about 6 days from the and then had to come back into [facility], and did not have time to follow up with her PCP. The patient re-presents to [facility] emergency department with fatigue, malaise, chills, fever, and hematuria. Pt was admitted to [facility] for further management. manager of internal audit to patient bedside at this time. The patient wears home oxygen through [facility]. Telephone call to [facility] at this time. Patient?s current order states 2 L continuous and 3 L with exertion. Patient reports that she was wearing her oxygen as ordered and also reports that she was wearing a BiPAP at night with the oxygen. Per chart review, patient did not answer the discharge follow-up phone call as the line was busy. Patient states that after she left the [facility] she was able to take all her medications as ordered. Patient states that she has been following up at the wound healing center once a week with Dr. Alfonso. Per chart review, the patient ran out of cell dressings. Patient confirms this at this time. Per chart review, APS was called due to hoarding. See SW note. During this stay, ID is consulted and reports that the Panniculitis is resolved and they are following. Dr. Alfonso is also consulted and is following. Wound RN is consulted. Moving forward, the patient states that she plans to return home at the time of discharge. Patient states that she lives at home with her daughter and feels safe returning home when she is medically ready. Patient states that she wishes to continue going to the wound healing center for further care. Pt denies further questions or concerns at this time. Case management to follow.
[2024-03-11] MEDS: Atorvastatin Calcium 10 MG Tablet PO (21:05)
[2024-03-11] MEDS: Senna/Docusate Sodium 1 Tablet 2 TABLET PO (21:08)
[2024-03-12] VITALS (7 sets, daily range): BP systolic 110–123; BP diastolic 42–59; PULSE 66–75; RESP 16–18; TEMP 36.3–37.1; O2SAT 94–99
[2024-03-12 07:41] LABS: Absolute Lymphocyte Count 0.52 X10^3/uL (0.83-4.51); Basophil# 0.05 X10^3/uL; Basophil% 0.6 % (0-1); Eosinophil# 0.66 X10^3/uL; Eosinophils% 7.4 % (0-5); Hematocrit 31.4 % (37-47); Hemoglobin 9.8 g/dL (12.0-15.0); Lymphocyte # 0.52 X10^3/ul (0.83-4.51); Lymphocyte % 5.8 % (19-41); Mean Corp Hgb Conc 31.2 g/dL (32-36); Mean Corpuscular Hgb 29.5 pg (27.0-32.0); Mean Corpuscular Volume 94.6 fL (81-99); Mean Platelet Vol. 11.3 fl (6.2-12.0); Monocyte# 0.66 X10^3/uL; Monocyte% 7.4 % (0-10); NRBC Flagged by Analyzer 0 % (0-5); Neutrophil # 7.02 X10^3/uL (2.7-7.7); Neutrophil % 78.2 % (47-70); POSITIVE DIFFERENTIAL YES; Platelet Count 131 K/mm3 (150-450); RBC Distribution Width CV 15.9 % (11.6-14.6); RBC Distribution Width SD 54.7 fl (35.1-43.9); Red Blood Count 3.32 M/mm3 (4.2-5.4)
--- NOTE | 2024-03-12 07:54 | PCA ---
call placed to PCP office, they will fax over urine culture results
[2024-03-12 08:11] LABS: Anion Gap 3 (5-15); BUN 20 mg/dL (7-18); BUN/Creat Ratio 14.4 RATIO (10-20); Calcium,Total 9.3 mg/dL (8.5-10.1); Chloride 111 mmol/L (98-107); Creatinine, Serum 1.39 mg/dL (0.55-1.02); EST Glomerular Filtration Rate 39 mL/min (>60); Est Glom Filt Rate - Afr Amer 47 mL/min (>60); Estimated Creatinine Clearance 51.45 ml/min; Glucose 87 mg/dL (74-106); Sodium Level 143 mmol/L (136-145)
[2024-03-12] MEDS: APIXABAN 5 MG TABLET PO ×2 (10:23→21:08)
[2024-03-12] MEDS: Lactobacillis Acidophilus 1 CAP PO (10:23)
[2024-03-12] MEDS: Ammonium Lactate 225 gm Bottle 1 APPLIC TOPICAL (10:24)
[2024-03-12] MEDS: DAKIN'S SOL HALF STRENGTH (=0.25%) TOPICAL ×2 (10:24→21:11)
[2024-03-12] MEDS: Folic Acid/Vitamin B Comp W-C 1 Capsule 1 CAP PO (10:25)
[2024-03-12] MEDS: Meropenem 1 GM in 0.9% Normal Saline (100mL MB+) 100 ML IV ×2 (10:25→21:08)
[2024-03-12] MEDS: FLUoxetine 20 MG Capsule PO (10:26)
[2024-03-12] MEDS: FLUTICASONE/UMECLIDIN/VILANTER 1 EACH BLST.W.DEV INHALATION (10:26)
[2024-03-12] MEDS: Pantoprazole Sodium 40 MG Tablet PO (10:26)
--- NOTE | 2024-03-12 11:03 | PN_ITS ---
Subjective Subjective Patient seen and examined. She had no active complaints and felt well. She got her daughter on the phone so she could participate in the conversation and have her concerns addressed. Review of systems is otherwise negative. Urine cultures growing ESBL E coli. She has remained hemodynamically stable. Objective Data Objective Data Vital Signs: Vital Signs Temp Pulse Resp BP Pulse Ox O2 Del Method O2 Flow Rate 98.4 F 73 16 110/45 L 95 Nasal Cannula 2 03/12/24 09:54 03/12/24 09:54 03/12/24 09:54 03/12/24 09:54 03/12/24 09:54 03/12/24 09:57 03/12/24 09:57 Oxygen Flow Rate (L/min) 2 Oxygen Delivery Method Nasal Cannula Weight: 326 lb 4.546 oz Body Mass Index (BMI) 51.2 Intake & Output: Intake and Output for Last 24 Hours 03/10/24 03/11/24 03/12/24 23:59 23:59 23:59 Intake Total 1000 / 1140 1800 / 1800 720 / 720 Output Total 300 / 300 Balance 1000 / 1140 1500 / 1500 720 / 720 Lab / Micro Data 03/12/24 07:32 03/12/24 07:32 Labs: Laboratory Results - last 24 hr 03/12/24 07:32: WBC 9.0, RBC 3.32 L, Hgb 9.8 L, Hct 31.4 L, MCV 94.6, MCH 29.5, MCHC 31.2 L, RDW Std Deviation 54.7 H, RDW Coeff of Ruben 15.9 H, Plt Count 131 L, MPV 11.3, Immature Gran % (Auto) 0.600, Neut % (Auto) 78.2 H, Lymph % (Auto) 5.8 L, [place] % (Auto) 7.4, Eos % (Auto) 7.4 H, Baso % (Auto) 0.6, Absolute Neuts (auto) 7.0, Absolute Lymphs (auto) 0.52 L, Nucleated RBC % 0, Sodium 143, Potassium 4.0, Chloride 111 H, Carbon Dioxide 29.0, Anion Gap 3 L, BUN 20 H, C reatinine 1.39 H, Estim Creat Clear Calc 51.45, Est GFR (MDRD) Af Amer 47 L, Est GFR (MDRD) Non-Af 39 L, BUN/Creatinine Ratio 14.4, Glucose 87, Calcium 9.3 Micro: Microbiology 03/10/24 18:20 Urine, Clean Catch Urine Culture - Preliminary ESBL Escherichia coli Rhythm Strip Rhythm Strip: Sinus Rhythm Rate: 92 Ectopy: None Physical Exam Const alert, oriented x3 and no apparent distress Constitutional Narrative: super morbid obesity General Appearance: cooperative and well developed HEENT normocephalic, head/scalp atraumatic and moist oral mucous membranes Eyes PERRL and EOMs intact bilaterally Neck supple and no JVD Lymph Lymphatic: no lymphadenopathy noted Resp Resp Narrative: mildly diminished breath sounds bibasally, no wheezes or crackles. On 2L of oxygen by nasal canula Cardio regular rate, regular rhythm, S1 normal heart sound, S2 normal heart sound and no murmurs GI GI Narrative: morbidly obese abdomen with large abdominal pannus; unable to assess for organomegaly due to abdominal pannus. Extremity normal capillary refill, no clubbing, cyanosis or edema and no calf tenderness General Extremity: no tenderness to palpation of joints or extremities Skin Skin Narrative: has ulceration beneath pannus. Dressing in place. Neuro CN's II-XII intact bilaterally, no focal motor deficits and no sensory deficits noted Motor Exam: strength 5/5 throughout and general weakness Psych thought process normal and cooperative Appearance: appropriate Assessment & Plan Assessment/Plan (1) UTI (urinary tract infection): (2) Panniculitis: (3) Leukocytosis: PLAN: Plan #UTI due to ESBL E coli * admitted with a complaint of hematuria. Urinalysis showed evidence of UTI * on IV vancomycin and meropenem as previous cultures grew ESBL E coli and enterococcus * ID on board. Now on meropenem. * urine cultures again growing ESBL E coli. Await further ID recommendations. * wbc is down to 9.0 today. #Chronic abdominal wound and panniculitis * This is beneath the abdominal pannus. Follows with plastic surgery. * plastic surgery reviewed patient and recommended to continue with wound dressing. #Chronic respiratory failure due to COPD: * On 2 L of oxygen at home. * Titrate oxygen to maintain saturation above 90%. * Breathing treatments with bronchodilators. #CKD stage III: Monitor creatinine. Creatinine at baseline. #ROBBI: On CPAP nightly #Super morbid obesity: Complicates acute care, expected recovery and prognosis. BMI is 51.1. Charges/Coding Visit Charges Inpatient E&M: 30759 Subs Hosp L2
--- NOTE | 2024-03-12 13:22 | PN.ID_ITS ---
Physical Exam Narrative Feeling better, less abd pain and dysuria. No fever. Const alert and no apparent distress General Appearance: cooperative Resp normal air movement and clear to auscultation bilaterally Cardio regular rate and regular rhythm GI soft to palpation, non-tender and non-distended Skin no rashes or lesions noted ID ID: Route of nutrition/ use of supplements: [] Nutritional Intake: [] IV Site: [] Croft Catheter: [] Assessment & Plan Assessment/Plan (1) UTI (urinary tract infection): PLAN: Panniculitis appears to be resolved. Seen by Dr. Alfonso here. Reports uti every month. UCx with esbl ecoli. Cont nguyễn. Discussed options for intermediate prevention, but likely not candidate for methenamine given CKD. Consider discharge this weekend with dose of fosfomycin 3gm x1 before leaving. Will need ID and urology followup. She has difficulty getting to urology appts in [place], would be interested in Dr. Rios referral. Will follow, d/w her and her daughter. (2) Leukocytosis:
--- NOTE | 2024-03-12 14:37 | CHAPLAIN ---
Type of Pastoral Visit _x__ Initial Visit ___ Follow-up Visit ___ On-call Visit ___ General Patient Visit ___ Spiritual Assessment ___ Family Conference ___ Bereavement ___ Rapid Response ___ Code Blue ___ Other (describe below) Pastoral Care Referral From _x__ Patient ___ Family ___ Nurse ___ Physician ___ Sixth Grade Teacher ___ Hand Shoes Sewer ___ Other (describe below) Sacrament/Intervention _x__ Active listening ___ Anointing ___ Sikh ___ Bereavement ___ Communion ___ Caryn exploration ___ ___ Life review _x__ Prayer ___ Reconciliation ___ Sacrament of Sick _x__ Supportive presence ___ Wedding ___ Other (describe below) Pastoral Comments specific prayer given on topic of trying a new medication
--- NOTE | 2024-03-12 17:39 | PN_ITS ---
Subjective Subjective Endorses good dressing changes. Objective Data Objective Data Vital Signs: Vital Signs Temp Pulse Resp BP Pulse Ox O2 Del Method O2 Flow Rate 97.4 F L 70 18 123/59 H 99 Nasal Cannula 2 03/12/24 17:16 03/12/24 17:16 03/12/24 17:16 03/12/24 17:16 03/12/24 17:16 03/12/24 17:16 03/12/24 17:16 Oxygen Flow Rate (L/min) 2 Oxygen Delivery Method Nasal Cannula Weight: 326 lb 4.546 oz Body Mass Index (BMI) 51.2 Intake & Output: Intake and Output for Last 24 Hours 03/10/24 03/11/24 03/12/24 23:59 23:59 23:59 Intake Total 1000 / 1140 1800 / 1800 840 / 840 Output Total 300 / 300 Balance 1000 / 1140 1500 / 1500 840 / 840 Lab / Micro Data 03/12/24 07:32 03/12/24 07:32 Labs: Laboratory Results - last 24 hr 03/12/24 07:32: WBC 9.0, RBC 3.32 L, Hgb 9.8 L, Hct 31.4 L, MCV 94.6, MCH 29.5, MCHC 31.2 L, RDW Std Deviation 54.7 H, RDW Coeff of Ruben 15.9 H, Plt Count 131 L, MPV 11.3, Immature Gran % (Auto) 0.600, Neut % (Auto) 78.2 H, Lymph % (Auto) 5.8 L, [place] % (Auto) 7.4, Eos % (Auto) 7.4 H, Baso % (Auto) 0.6, Absolute Neuts (auto) 7.0, Absolute Lymphs (auto) 0.52 L, Nucleated RBC % 0, Sodium 143, Potassium 4.0, Chloride 111 H, Carbon Dioxide 29.0, Anion Gap 3 L, BUN 20 H, C reatinine 1.39 H, Estim Creat Clear Calc 51.45, Est GFR (MDRD) Af Amer 47 L, Est GFR (MDRD) Non-Af 39 L, BUN/Creatinine Ratio 14.4, Glucose 87, Calcium 9.3 Micro: Microbiology 03/10/24 18:20 Urine, Clean Catch Urine Culture - Preliminary ESBL Escherichia coli Rhythm Strip Rhythm Strip: Sinus Rhythm Rate: 92 Ectopy: None Physical Exam Narrative Wound examined. Hemostatic. No bleeding. SOme persistent cellutitis on pannus Assessment & Plan Assessment/Plan (1) Skin ulcer of abdominal wall with fat layer exposed: PLAN: Plan Continue twice daily dressing changes Added Santyl for enzymatic debridement. Agree with continued antibiotics for cellulitis v UTI PSU to continue to follow. Charges/Coding Visit Charges Inpatient E&M: 90338 Subs Hosp L1
[2024-03-12] MEDS: Atorvastatin Calcium 10 MG Tablet PO (21:08)
[2024-03-13 03:04] VITALS: BP 119/49; PULSE 64; RESP 18; TEMP 36.9; O2SAT 95
[2024-03-13 06:08] LABS: Absolute Lymphocyte Count 0.64 X10^3/uL (0.83-4.51); Basophil# 0.04 X10^3/uL; Basophil% 0.6 % (0-1); Eosinophil# 0.88 X10^3/uL; Eosinophils% 14.1 % (0-5); Hematocrit 30.2 % (37-47); Hemoglobin 9.4 g/dL (12.0-15.0); Lymphocyte # 0.64 X10^3/ul (0.83-4.51); Lymphocyte % 10.2 % (19-41); Mean Corp Hgb Conc 31.1 g/dL (32-36); Mean Corpuscular Hgb 29.2 pg (27.0-32.0); Mean Corpuscular Volume 93.8 fL (81-99); Monocyte# 0.67 X10^3/uL; Monocyte% 10.7 % (0-10); NRBC Flagged by Analyzer 0 % (0-5); Neutrophil # 3.98 X10^3/uL (2.7-7.7); Neutrophil % 63.6 % (47-70); Platelet Count 120 K/mm3 (150-450); RBC Distribution Width CV 15.6 % (11.6-14.6); RBC Distribution Width SD 53.4 fl (35.1-43.9); Red Blood Count 3.22 M/mm3 (4.2-5.4); White Blood Count 6.3 K/mm3 (4.4-11.0)
[2024-03-13 06:55] LABS: Anion Gap 5 (5-15); BUN 20 mg/dL (7-18); BUN/Creat Ratio 15.3 RATIO (10-20); Calcium,Total 9.2 mg/dL (8.5-10.1); Chloride 111 mmol/L (98-107); Creatinine, Serum 1.31 mg/dL (0.55-1.02); EST Glomerular Filtration Rate 42 mL/min (>60); Est Glom Filt Rate - Afr Amer 51 mL/min (>60); Estimated Creatinine Clearance 54.59 ml/min; Glucose 94 mg/dL (74-106); Potassium 3.9 mmol/L (3.5-5.1); Sodium Level 143 mmol/L (136-145)
[2024-03-13 08:07] VITALS: O2SAT 96
[2024-03-13 09:00] VITALS: BP 139/56; PULSE 63; RESP 18; TEMP 36.2; O2SAT 97
[2024-03-13] MEDS: APIXABAN 5 MG TABLET PO ×2 (10:50→20:48)
[2024-03-13] MEDS: Amiodarone 200 MG Tablet PO (10:50)
[2024-03-13] MEDS: Lactobacillis Acidophilus 1 CAP PO (10:50)
[2024-03-13] MEDS: Ammonium Lactate 225 gm Bottle 1 APPLIC TOPICAL (10:51)
[2024-03-13] MEDS: Folic Acid/Vitamin B Comp W-C 1 Capsule 1 CAP PO (10:51)
[2024-03-13] MEDS: Pantoprazole Sodium 40 MG Tablet PO (10:51)
[2024-03-13] MEDS: FLUTICASONE/UMECLIDIN/VILANTER 1 EACH BLST.W.DEV INHALATION (10:52)
[2024-03-13] MEDS: Collagenase 30gm Tube 1 APPLIC TOPICAL (10:52)
[2024-03-13] MEDS: 0.9% Saline Lock 10 ML Syringe IV (10:53)
[2024-03-13] MEDS: FLUoxetine 20 MG Capsule PO (10:53)
[2024-03-13] MEDS: Meropenem 1 GM in 0.9% Normal Saline (100mL MB+) 100 ML IV ×2 (10:55→20:49)
--- NOTE | 2024-03-13 10:56 | PN_ITS ---
Subjective Subjective Patient seen and examined. She had no active complaints and felt well. Review of systems is otherwise negative. Patient said she had Santyl used on her panniculus wound yesterday and says ended up being used from the wound instead of in the wound and that made her a bit uncomfortable but she feels better now. Review of systems is otherwise negative. Objective Data Objective Data Vital Signs: Vital Signs Temp Pulse Resp BP Pulse Ox O2 Del Method O2 Flow Rate 98.5 F 64 18 119/49 L 96 Nasal Cannula 2 03/13/24 03:04 03/13/24 03:04 03/13/24 03:04 03/13/24 03:04 03/13/24 08:07 03/13/24 08:07 03/13/24 09:06 Oxygen Flow Rate (L/min) 2 Oxygen Delivery Method Nasal Cannula Weight: 326 lb 4.546 oz Body Mass Index (BMI) 51.2 Intake & Output: Intake and Output for Last 24 Hours 03/11/24 03/12/24 03/13/24 23:59 23:59 23:59 Intake Total 1800 / 1800 840 / 1280 610 / 610 Output Total 300 / 300 Balance 1500 / 1500 840 / 1280 610 / 610 Lab / Micro Data 03/13/24 05:40 03/13/24 05:40 Labs: Laboratory Results - last 24 hr 03/13/24 05:40: WBC 6.3, RBC 3.22 L, Hgb 9.4 L, Hct 30.2 L, MCV 93.8, MCH 29.2, MCHC 31.1 L, RDW Std Deviation 53.4 H, RDW Coeff of Ruben 15.6 H, Plt Count 120 L, MPV 12.0, Immature Gran % (Auto) 0.800, Neut % (Auto) 63.6, Lymph % (Auto) 10.2 L, [place] % (Auto) 10.7 H, Eos % (Auto) 14.1 H, Baso % (Auto) 0.6, Absolute Neuts (auto) 4.0, Absolute Lymphs (auto) 0.64 L, Nucleated RBC % 0, Sodium 143, Potassium 3.9, Chloride 111 H, Carbon Dioxide 27.0, Anion Gap 5, BUN 20 H, C reatinine 1.31 H, Estim Creat Clear Calc 54.59, Est GFR (MDRD) Af Amer 51 L, Est GFR (MDRD) Non-Af 42 L, BUN/Creatinine Ratio 15.3, Glucose 94, Calcium 9.2 Micro: Microbiology 03/10/24 18:20 Urine, Clean Catch Urine Culture - Final ESBL Escherichia coli Rhythm Strip Rhythm Strip: Sinus Rhythm Rate: 92 Ectopy: None Physical Exam Const alert, oriented x3 and no apparent distress Constitutional Narrative: super morbid obesity General Appearance: cooperative and well developed HEENT normocephalic, head/scalp atraumatic and moist oral mucous membranes Eyes PERRL and EOMs intact bilaterally Neck supple and no JVD Lymph Lymphatic: no lymphadenopathy noted Resp Resp Narrative: mildly diminished breath sounds bibasally, no wheezes or crackles. Remains on 2L of oxygen by nasal canula Cardio regular rate, regular rhythm, S1 normal heart sound, S2 normal heart sound and no murmurs GI GI Narrative: morbidly obese abdomen with large abdominal pannus; unable to assess for organomegaly due to abdominal pannus. Extremity normal capillary refill, no clubbing, cyanosis or edema and no calf tenderness General Extremity: no tenderness to palpation of joints or extremities Skin Skin Narrative: has ulceration beneath pannus. Dressing in place. Neuro CN's II-XII intact bilaterally, no focal motor deficits and no sensory deficits noted Motor Exam: strength 5/5 throughout and general weakness Psych thought process normal and cooperative Appearance: appropriate Assessment & Plan Assessment/Plan (1) UTI (urinary tract infection): (2) Panniculitis: (3) Leukocytosis: PLAN: Plan #UTI due to ESBL E coli * admitted with a complaint of hematuria. Urinalysis showed evidence of UTI * previous cultures grew ESBL E coli and enterococcus * ID on board. Now on meropenem. * urine cultures again growing ESBL E coli. * wbc is down to 6.3 today * ID had recommended that patient could be discharged over the weekend with a one-time dose of 3 g of fosfomycin. Patient however not comfortable with discharge as she is concerned that the infection might come back. She wants to stay over the weekend for her to get meropenem over the weekend and wants to talk to ID again on Friday. * Will therefore continue the antibiotics for now. #Chronic abdominal wound and panniculitis * This is beneath the abdominal pannus. Follows with plastic surgery. * plastic surgery reviewed patient and recommended to continue with wound dressing. #Chronic respiratory failure due to COPD: * On 2 L of oxygen at home. * Titrate oxygen to maintain saturation above 90%. * Breathing treatments with bronchodilators. #CKD stage III: Monitor creatinine. Creatinine at baseline. #ROBBI: On CPAP nightly #Super morbid obesity: Complicates acute care, expected recovery and prognosis. BMI is 51.1. Disposition: for likely dc on Friday as she wants to stay over the weekend for antibiotics Charges/Coding Visit Charges Inpatient E&M: 25440 Subs Hosp L2
--- NOTE | 2024-03-13 14:30 | PN.SURG_ITS ---
Subjective Subjective Doing well. Feels like there is less redness on her pannus than before. Objective Data Objective Data Vital Signs: Vital Signs Temp Pulse Resp BP Pulse Ox O2 Del Method O2 Flow Rate 97.2 F L 63 18 139/56 H 97 Nasal Cannula 2 03/13/24 09:00 03/13/24 09:00 03/13/24 09:00 03/13/24 09:00 03/13/24 09:00 03/13/24 09:00 03/13/24 11:05 Oxygen Flow Rate (L/min) 2 Oxygen Delivery Method Nasal Cannula Weight: 326 lb 4.546 oz Body Mass Index (BMI) 51.2 Intake & Output: Intake and Output for Last 24 Hours 03/11/24 03/12/24 03/13/24 23:59 23:59 23:59 Intake Total 1800 / 1800 840 / 1280 1310 / 1310 Output Total 300 / 300 Balance 1500 / 1500 840 / 1280 1310 / 1310 Lab / Micro Data 03/13/24 05:40 03/13/24 05:40 Labs: Laboratory Results - last 24 hr 03/13/24 05:40: WBC 6.3, RBC 3.22 L, Hgb 9.4 L, Hct 30.2 L, MCV 93.8, MCH 29.2, MCHC 31.1 L, RDW Std Deviation 53.4 H, RDW Coeff of Ruben 15.6 H, Plt Count 120 L, MPV 12.0, Immature Gran % (Auto) 0.800, Neut % (Auto) 63.6, Lymph % (Auto) 10.2 L, [place] % (Auto) 10.7 H, Eos % (Auto) 14.1 H, Baso % (Auto) 0.6, Absolute Neuts (auto) 4.0, Absolute Lymphs (auto) 0.64 L, Nucleated RBC % 0, Sodium 143, Potassium 3.9, Chloride 111 H, Carbon Dioxide 27.0, Anion Gap 5, BUN 20 H, C reatinine 1.31 H, Estim Creat Clear Calc 54.59, Est GFR (MDRD) Af Amer 51 L, Est GFR (MDRD) Non-Af 42 L, BUN/Creatinine Ratio 15.3, Glucose 94, Calcium 9.2 Micro: Microbiology 03/10/24 18:20 Blood Culture (Wb) - Anticubital Left Blood Culture - Preliminary No growth in 48 hours. 03/10/24 19:30 Blood Culture (Wb) - Anticubital Right Blood Culture - Preliminary No growth in 48 hours. 03/10/24 18:20 Urine, Clean Catch Urine Culture - Final ESBL Escherichia coli Rhythm Strip Rhythm Strip: Sinus Rhythm Rate: 92 Ectopy: None Physical Exam Narrative The cellulitis has improved. It is regressing on her abdomen. No strike through bleeding on the dressings. Assessment & Plan Assessment/Plan (1) Skin ulcer of abdominal wall with fat layer exposed: PLAN: Plan Continue twice daily dressing changes Added Santyl for enzymatic debridement. Agree with continued antibiotics for cellulitis v UTI PSU to continue to follow. Charges/Coding Visit Charges Inpatient E&M: 81843 [facility] Hosp L1
[2024-03-13 15:00] VITALS: BP 117/51; PULSE 61; RESP 18; TEMP 36.1; O2SAT 98
[2024-03-13 20:44] VITALS: BP 136/58; PULSE 66; RESP 17; TEMP 36.7; O2SAT 100
[2024-03-13] MEDS: Atorvastatin Calcium 10 MG Tablet PO (20:48)
[2024-03-13] MEDS: DAKIN'S SOL HALF STRENGTH (=0.25%) TOPICAL (20:49)
[2024-03-13 21:24] VITALS: O2SAT 100
[2024-03-14] VITALS (8 sets, daily range): BP systolic 132–142; BP diastolic 57–70; PULSE 62–65; RESP 16–18; TEMP 36.1–37.1; O2SAT 92–96; BMI 51.5
[2024-03-14 06:29] LABS: Absolute Lymphocyte Count 0.79 X10^3/uL (0.83-4.51); Absolute Neutrophil Count 2.7 X10^3/uL (2.0-7.7); Basophil# 0.06 X10^3/uL; Basophil% 1.2 % (0-1); Eosinophil# 0.76 X10^3/uL; Eosinophils% 15.3 % (0-5); Hematocrit 31.6 % (37-47); Hemoglobin 9.6 g/dL (12.0-15.0); Lymphocyte # 0.79 X10^3/ul (0.83-4.51); Lymphocyte % 15.9 % (19-41); Mean Corp Hgb Conc 30.4 g/dL (32-36); Mean Corpuscular Hgb 28.7 pg (27.0-32.0); Mean Corpuscular Volume 94.6 fL (81-99); Mean Platelet Vol. 12.3 fl (6.2-12.0); NRBC Flagged by Analyzer 0 % (0-5); Neutrophil # 2.73 X10^3/uL (2.7-7.7); Neutrophil % 54.8 % (47-70); Platelet Count 142 K/mm3 (150-450); RBC Distribution Width CV 15.3 % (11.6-14.6); RBC Distribution Width SD 53.1 fl (35.1-43.9); Red Blood Count 3.34 M/mm3 (4.2-5.4)
[2024-03-14 07:42] LABS: Anion Gap 4 (5-15); BUN 18 mg/dL (7-18); BUN/Creat Ratio 14.8 RATIO (10-20); Calcium,Total 9.8 mg/dL (8.5-10.1); Chloride 111 mmol/L (98-107); Creatinine, Serum 1.22 mg/dL (0.55-1.02); EST Glomerular Filtration Rate 45 mL/min (>60); Est Glom Filt Rate - Afr Amer 55 mL/min (>60); Estimated Creatinine Clearance 58.84 ml/min; Glucose 85 mg/dL (74-106); Potassium 4.2 mmol/L (3.5-5.1); Sodium Level 144 mmol/L (136-145)
--- NOTE | 2024-03-14 09:48 | PN_ITS ---
Subjective Subjective Patient seen and examined. She had no complaints. Her daughter as usual got on the phone during my review today participates in the discussion about her mother's care. Review of systems otherwise negative. She has remained hemodynamically stable. Objective Data Objective Data Vital Signs: Vital Signs Temp Pulse Resp BP Pulse Ox O2 Del Method O2 Flow Rate 98.7 F 65 18 132/67 H 95 Nasal Cannula 2 03/14/24 06:45 03/14/24 06:45 03/14/24 06:45 03/14/24 06:45 03/14/24 07:07 03/14/24 07:07 03/14/24 08:36 Oxygen Flow Rate (L/min) 2 Oxygen Delivery Method Nasal Cannula Weight: 328 lb 4.293 oz Body Mass Index (BMI) 51.5 Intake & Output: Intake and Output for Last 24 Hours 03/12/24 03/13/24 03/14/24 23:59 23:59 23:59 Intake Total 840 / 1280 2230 / 2230 420 / 420 Balance 840 / 1280 2230 / 2230 420 / 420 Lab / Micro Data 03/14/24 05:39 03/14/24 05:39 Labs: Laboratory Results - last 24 hr 03/14/24 05:39: WBC 5.0, RBC 3.34 L, Hgb 9.6 L, Hct 31.6 L, MCV 94.6, MCH 28.7, MCHC 30.4 L, RDW Std Deviation 53.1 H, RDW Coeff of Ruben 15.3 H, Plt Count 142 L, MPV 12.3 H, Immature Gran % (Auto) 0.800, Neut % (Auto) 54.8, Lymph % (Auto) 15.9 L, Carbon % (Auto) 12.0 H, Eos % (Auto) 15.3 H, Baso % (Auto) 1.2 H, Absolute Neuts (auto) 2.7, Absolute Lymphs (auto) 0.79 L, Nucleated RBC % 0, Sodium 144, Potassium 4.2, Chloride 111 H, Carbon Dioxide 30.0, Anion Gap 4 L, BUN 18, C reatinine 1.22 H, Estim Creat Clear Calc 58.84, Est GFR (MDRD) Af Amer 55 L, Est GFR (MDRD) Non-Af 45 L, BUN/Creatinine Ratio 14.8, Glucose 85, Calcium 9.8 Micro: Microbiology 03/10/24 18:20 Blood Culture (Wb) - Anticubital Left Blood Culture - Preliminary No growth in 48 hours. 03/10/24 19:30 Blood Culture (Wb) - Anticubital Right Blood Culture - Preliminary No growth in 48 hours. 03/10/24 18:20 Urine, Clean Catch Urine Culture - Final ESBL Escherichia coli Rhythm Strip Rhythm Strip: Sinus Rhythm Rate: 92 Ectopy: None Physical Exam Const alert, oriented x3 and no apparent distress Constitutional Narrative: super morbid obesity General Appearance: cooperative HEENT normocephalic, head/scalp atraumatic and moist oral mucous membranes Eyes PERRL and EOMs intact bilaterally Neck supple and no JVD Lymph Lymphatic: no lymphadenopathy noted Resp Resp Narrative: mildly diminished breath sounds bibasally, no wheezes or crackles. Remains on 2L of oxygen by nasal canula Cardio regular rate, regular rhythm, S1 normal heart sound, S2 normal heart sound and no murmurs GI GI Narrative: morbidly obese abdomen with large abdominal pannus; unable to assess for organomegaly due to abdominal pannus. Extremity normal capillary refill, no clubbing, cyanosis or edema and no calf tenderness General Extremity: no tenderness to palpation of joints or extremities Skin Skin Narrative: has ulceration beneath pannus. Dressing in place. Neuro CN's II-XII intact bilaterally, no focal motor deficits and no sensory deficits noted Motor Exam: strength 5/5 throughout and general weakness Psych thought process normal and cooperative Appearance: appropriate Assessment & Plan Assessment/Plan (1) UTI (urinary tract infection): (2) Panniculitis: (3) Leukocytosis: PLAN: Plan #UTI due to ESBL E coli * admitted with a complaint of hematuria. Urinalysis showed evidence of UTI * previous cultures grew ESBL E coli and enterococcus * ID on board. Now on meropenem. * urine cultures again growing ESBL E coli. * wbc is down to 6.3 today * ID had recommended that patient could be discharged over the weekend with a one-time dose of 3 g of fosfomycin. Patient however not comfortable with discharge as she is concerned that the infection might come back. She wants to stay over the weekend for her to get meropenem over the weekend and wants to talk to ID again on Friday. * Will therefore continue the meropenem for the weekend. #Chronic abdominal wound and panniculitis * This is beneath the abdominal pannus. Follows with plastic surgery. * plastic surgery reviewed patient and recommended to continue with wound dressing. #Chronic respiratory failure due to COPD: * On 2 L of oxygen at home. * Titrate oxygen to maintain saturation above 90%. * Breathing treatments with bronchodilators. #CKD stage III: Monitor creatinine. Creatinine at baseline. #ROBBI: On CPAP nightly #Super morbid obesity: Complicates acute care, expected recovery and prognosis. BMI is 51.1. Disposition: for likely dc on Friday as she wants to stay over the weekend for antibiotics Charges/Coding Visit Charges Inpatient E&M: 11042 Subs Hosp L2
[2024-03-14] MEDS: Pantoprazole Sodium 40 MG Tablet PO (10:11)
[2024-03-14] MEDS: Amiodarone 200 MG Tablet PO (10:11)
[2024-03-14] MEDS: FLUoxetine 20 MG Capsule PO (10:12)
[2024-03-14] MEDS: Lactobacillis Acidophilus 1 CAP PO (10:12)
[2024-03-14] MEDS: Ammonium Lactate 225 gm Bottle 1 APPLIC TOPICAL (10:12)
[2024-03-14] MEDS: APIXABAN 5 MG TABLET PO ×2 (10:12→22:22)
[2024-03-14] MEDS: Folic Acid/Vitamin B Comp W-C 1 Capsule 1 CAP PO (10:12)
[2024-03-14] MEDS: FLUTICASONE/UMECLIDIN/VILANTER 1 EACH BLST.W.DEV INHALATION (10:13)
[2024-03-14] MEDS: Meropenem 1 GM in 0.9% Normal Saline (100mL MB+) 100 ML IV ×2 (10:21→22:23)
[2024-03-14] MEDS: 0.9% Saline Lock 10 ML Syringe IV (10:21)
[2024-03-14] MEDS: Collagenase 30gm Tube 1 APPLIC TOPICAL (13:17)
[2024-03-14] MEDS: DAKIN'S SOL HALF STRENGTH (=0.25%) TOPICAL ×2 (13:17→22:23)
[2024-03-14] MEDS: Atorvastatin Calcium 10 MG Tablet PO (22:23)
[2024-03-15 04:52] VITALS: BP 111/68; PULSE 62; RESP 18; TEMP 36.8; O2SAT 98
[2024-03-15 06:00] VITALS: BMI 50.5
[2024-03-15 07:16] LABS: Absolute Lymphocyte Count 0.85 X10^3/uL (0.83-4.51); Absolute Neutrophil Count 2.8 X10^3/uL (2.0-7.7); Basophil# 0.06 X10^3/uL; Basophil% 1.1 % (0-1); Eosinophil# 0.92 X10^3/uL; Eosinophils% 17.1 % (0-5); Hematocrit 31.8 % (37-47); Hemoglobin 9.7 g/dL (12.0-15.0); Lymphocyte # 0.85 X10^3/ul (0.83-4.51); Lymphocyte % 15.8 % (19-41); Mean Corp Hgb Conc 30.5 g/dL (32-36); Mean Corpuscular Hgb 28.5 pg (27.0-32.0); Mean Corpuscular Volume 93.5 fL (81-99); Mean Platelet Vol. 12.2 fl (6.2-12.0); Monocyte# 0.71 X10^3/uL; Monocyte% 13.2 % (0-10); NRBC Flagged by Analyzer 0 % (0-5); Neutrophil # 2.75 X10^3/uL (2.7-7.7); Neutrophil % 51.3 % (47-70); Platelet Count 146 K/mm3 (150-450); RBC Distribution Width SD 51.9 fl (35.1-43.9); White Blood Count 5.4 K/mm3 (4.4-11.0)
[2024-03-15 07:58] LABS: Anion Gap 4 (5-15); BUN 16 mg/dL (7-18); BUN/Creat Ratio 15.4 RATIO (10-20); Calcium,Total 9.3 mg/dL (8.5-10.1); Chloride 111 mmol/L (98-107); Creatinine, Serum 1.04 mg/dL (0.55-1.02); EST Glomerular Filtration Rate 55 mL/min (>60); Est Glom Filt Rate - Afr Amer 66 mL/min (>60); Estimated Creatinine Clearance 68.25 ml/min; Glucose 89 mg/dL (74-106); Sodium Level 144 mmol/L (136-145)
[2024-03-15] MEDS: Amiodarone 200 MG Tablet PO (08:44)
[2024-03-15] MEDS: Lactobacillis Acidophilus 1 CAP PO (08:44)
[2024-03-15] MEDS: APIXABAN 5 MG TABLET PO (08:45)
[2024-03-15] MEDS: FLUoxetine 20 MG Capsule PO (08:46)
[2024-03-15] MEDS: Pantoprazole Sodium 40 MG Tablet PO (08:46)
[2024-03-15] MEDS: Folic Acid/Vitamin B Comp W-C 1 Capsule 1 CAP PO (08:46)
[2024-03-15] MEDS: FLUTICASONE/UMECLIDIN/VILANTER 1 EACH BLST.W.DEV INHALATION (08:47)
[2024-03-15 08:56] VITALS: BP 129/47; PULSE 72; RESP 16; TEMP 36.3; O2SAT 98
[2024-03-15] MEDS: Meropenem 1 GM in 0.9% Normal Saline (100mL MB+) 100 ML IV (09:11)
[2024-03-15 10:24] VITALS: O2SAT 97
[2024-03-15 10:25] VITALS: O2SAT 97
--- NOTE | 2024-03-15 12:10 | CASEMGMT ---
Addendum entered by Ann Velasco 03/15/24 12:54: Pt has transportation home. Pt oxygen tank has been delivered to the room. Original Note: STUART BRAVO into pt room, pt to be dc'd this date. Pt states she does not have ABD's at home. She does have some in her room and is aware that she will be dc'd with those. Pt will follow up on Friday at the [facility]. Pt states she does not have transportation home. She is able to get in and out of the vehicle on her own but states her dtr propped the w/c up against the car at home and she would need someone to get that for her and bring it to the vehicle for her to get into. Pt aware that the [facility] van is unable to do this for her. Pt states she will try to reach another person to see if they can take her home. Pt states she does not have a portable oxygen tank with her and she has no one who can get into the house to get it. TC to [facility], spoke with [facility], they will deliver a tank today to pt room. Pt denies any homegoing needs otherwise. STUART BRAVO to check back to see if pt secured transportation home.
[2024-03-15] MEDS: Docusate Sodium 100 MG Capsule 200 MG PO (12:16)
[2024-03-15] MEDS: Collagenase 30gm Tube 1 APPLIC TOPICAL (12:24)
[2024-03-15] MEDS: DAKIN'S SOL HALF STRENGTH (=0.25%) TOPICAL (12:25)
[2024-03-15] MEDS: Ammonium Lactate 225 gm Bottle 1 APPLIC TOPICAL (12:26)
--- NOTE | 2024-03-15 12:26 | DS.PCM_ITS ---
Providers Date of Admission: 03/10/24 Date of Discharge: 03/15/24 Primary Care Physician: Dr. 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/building serviceman Routine Comment: Reason for Consult:: ABD WOUND Consult: Plastic Surgery Routine Consulting Provider: Hari Alfonso Reason for Consult: Abdominal wound, family requesting, appears improved EMERGENT Consult: No Notified: Yes Date Notified: 03/10/24 Time Notified: 22: Method of Notification: Text Reason For Visit: COMPLICATED UTI Diagnosis Discharge Diagnosis (1) UTI (urinary tract infection): Status: Acute Code(s): N39.0 - Urinary tract infection, site not specified (2) Panniculitis: Status: Acute Code(s): M79.3 - Panniculitis, unspecified (3) Leukocytosis: Status: Acute Code(s): D72.829 - Elevated white blood cell count, unspecified Medications at Discharge Home Medications ergocalciferol (vitamin D2) 1,250 mcg (50,000 unit) capsule 50,000 unit PO MAZA SUPPLEMENT 02/25/20 fluoxetine 20 mg capsule 20 mg PO DAILY DEPRESSION 02/25/20 rosuvastatin 5 mg tablet (Crestor) 5 mg PO QHS cholesterol 01/16/21 pantoprazole 40 mg tablet,delayed release 40 mg PO DAILY reflux 03/12/21 amiodarone 200 mg tablet 200 mg PO DAILY heart rate #0 tabs 02/26/23 albuterol sulfate 90 mcg/actuation breath activated powder inhaler 2 inh inhalation .000 PRN shortness of breath 03/27/23 ammonium lactate 12 % lotion (Skin Treatment) 1 applic topical DAILY PRN dry skin 03/27/23 furosemide 40 mg tablet 20 mg PO DAILY PRN diuretic 03/27/23 vitamin B complex and vitamin C no.20-folic acid 1 mg capsule (Renal Caps) 1 cap PO DAILY vitamin 03/27/23 sennosides 8.6 mg-docusate sodium 50 mg tablet (Stool Softener-Stimulant Laxative) 2 tab PO BID PRN constipation 06/25/23 L.acidophil,salivari-Bifido bifidum-Strep thermoph 175 mg capsule 1 cap PO DAILY 01/28/24 apixaban 5 mg tablet (Eliquis) 5 mg PO BID 01/28/24 cranberry fruit concentrate 250 mg chewable tablet (Azo Cranberry) 250 mg PO DAILY 01/28/24 fluticasone fur. 100 mcg-umeclid 62.5 mcg-vilant 25 mcg inhalat.powder (Trelegy Ellipta) 1 ea inhalation DAILY 01/28/24 collagenase clostridium histo. 250 unit/gram topical ointment (Santyl) 1 applic topical DAILY #15 grams 03/15/24 methenamine hippurate 1 gram tablet 1 g PO BID #60 tabs 03/15/24 Hospital Course Operations None Procedures EKG and - (Chest x-ray) Summary of Care Provided Minutes Spent on Discharge: 38 Hospital Course: Mrs. Bradley is a 78-year-old white female who presented to the emergency department at [facility] on 03/10/2024 with fever and blood in her urine. Patient does have a history of MDRO in her urine previously. On presentation she reported acute onset of fatigue, malaise, chills, and fevers along with dysuria and hematuria which started the day of presentation. Given her history she came to the emergency department quickly to be evaluated further. Vital signs on presentation showed temperature of 99, heart rate 93, blood pressure was 144/57, respiratory rate was 22 and pulse ox was 95% on 2 L nasal cannula. This does appear to be her baseline. CBC showed a leukocytosis with a white count of 23.1 and a left shift. Coags were unremarkable. Lactic acid was 1.4. Serum creatinine was 1.45 and this is consistent with her baseline. Given her symptoms, blood and urine cultures were both sent from the emergency department and she was admitted to the medical floor with antibiotics to include meropenem and vancomycin given her history of drug-resistant organisms. Infectious disease was also consulted due to her history. She is also known to have a chronic abdominal wound that she has been following with plastic surgery and ongoing plastics will proceed as an outpatient. Dr. Alfonso did see the patient during her hospitalization and overall is doing well. He did continue twice daily dressings and added Santyl for enzymatic debridement debridement which we will continue at discharge. Plan is to follow-up as an outpatient for ongoing care. Infectious disease did see the patient and initially recommended discharge on fosfomycin initially and treatment was continued through the weekend. She was also on antibiotics for panniculitis which was resolved at the time of discharge. She had been reporting frequent UTIs with a UTI at least every month. Long-term options were discussed with infectious disease to the patient and her daughter and they felt she would be okay for home off antibiotics and on methenamine for suppression. She is to follow-up with ID in 1 month. Her diuretics were held during her hospitalization but will be restarted at discharge. She had a chronic anemia which was stable. Her renal function improved to the point where it was 1.04 at the time of discharge likely related to us holding her diuretics however her baseline renal function appears to be between 1.3 and 1.6. Her prescription was sent to local pharmacy at the time of discharge in addition to the prescription for Stansel. She is to follow-up with ID in 1 month, Dr. Alfonso as had previously been recommended and her primary care physician within 1 week. Patient was discharged home in stable condition on 03/15/2024. Discharge diagnoses: Complicated MDRO E. coli UTI-treatment completed Panniculitis/chronic abdominal wound-resolved Leukocytosis-resolved COPD Chronic hypoxic respiratory failure CKD stage IIIb DM-2 PAF Chronic anemia Hypertension Hyperlipidemia Aortic stenosis with murmur History of VTE GERD ROBBI Morbid obesity Anxiety/depression Physical Exam Const alert, oriented x3, no apparent distress, no limitations and well nourished; Negative for average body habitus or healthy appearing Constitutional Narrative: Morbidly obese, white female, sitting up in bed, watching television, appears comfortable, nontoxic General Appearance: cooperative, comfortable, well kempt and well developed Exam Limitations: no limitations Nutritional Appearance: morbidly obese HEENT normocephalic, head/scalp atraumatic, hearing grossly normal bilaterally and moist oral mucous membranes HEENT Narrative: Mallampati 3, no thrush Eyes EOMs intact bilaterally; Negative for conjunctivae normal Eyes Narrative: No scleral icterus, mild conjunctival pallor bilaterally Neck supple Neck Narrative: Neck is short and thick, trachea midline Resp normal respiratory effort, no retractions, no use of accessory muscles and clear to auscultation bilaterally Auscultation: Negative for rales, rhonchi or wheezes Cardio regular rate, regular rhythm, S1 normal heart sound, S2 normal heart sound, no rub, no gallops and no clicks; Negative for no murmurs Cardio Narrative: 4/6 systolic murmur loudest at right upper sternal border GI normal to inspection, nondistended, normoactive bowel sounds, soft to palpation and non-tender GI Narrative: Large protuberant abdomen Extremity Extremity Narrative: Trace bilateral lower extremity edema that is pitting in nature, no cyanosis or clubbing Skin skin turgor normal, no jaundice, no petechiae and no mottling Neuro oriented x3, moves all extremities and no focal motor deficits Speech: speech normal Psych affect normal Psych Narrative: Eye contact is good and patient interacts appropriately. Weight / BMI Weight Weight: 146.2 kg Body Mass Index (BMI) 50.5 ABG / Lab / Microbiology Data 03/15/24 06:00 03/15/24 06:00 Laboratory: Laboratory Results - last 24 hr 03/15/24 06:00: WBC 5.4, RBC 3.40 L, Hgb 9.7 L, Hct 31.8 L, MCV 93.5, MCH 28.5, MCHC 30.5 L, RDW Std Deviation 51.9 H, RDW Coeff of Ruben 15.0 H, Plt Count 146 L, MPV 12.2 H, Immature Gran % (Auto) 1.500 H, Neut % (Auto) 51.3, Lymph % (Auto) 15.8 L, [place] % (Auto) 13.2 H, Eos % (Auto) 17.1 H, Baso % (Auto) 1.1 H, Absolute Neuts (auto) 2.8, Absolute Lymphs (auto) 0.85, Nucleated RBC % 0, Sodium 144, Potassium 4.0, Chloride 111 H, Carbon Dioxide 29.0, Anion Gap 4 L, BUN 16, C reatinine 1.04 H, Estim Creat Clear Calc 68.25, Est GFR (MDRD) Af Amer 66, Est GFR (MDRD) Non-Af 55 L, BUN/Creatinine Ratio 15.4, Glucose 89, Calcium 9.3 Microbiology: Microbiology 03/10/24 18:20 Blood Culture (Wb) - Anticubital Left Blood Culture - Preliminary No growth in 48 hours. 03/10/24 19:30 Blood Culture (Wb) - Anticubital Right Blood Culture - Preliminary No growth in 48 hours. 03/10/24 18:20 Urine, Clean Catch Urine Culture - Final ESBL Escherichia coli D/C Instructions Discharge Diet: Low fat / Low cholesterol Discharge Activity: Return to Normal Activity DC O2, CPAP, BIPAP Needs Home O2 Discharge instructions: Yes Type of respiratory needs?: Oxygen Oxygen frequency: Continuous Continuous oxygen liters per minute: 2 DC home with Oxygen: Yes Home O2 MD Review: I have reviewed the oxygen testing, and the patient qualifies for home oxygen equipment and portability. The patient is mobile in the home and the community. Meaningful Use Info Meaningful Use Meaningful Use Diagnoses (Choose all that apply): None applicable Ischemic Stroke Statin Dosing Therapy Reference: STATIN DOSE THERAPY REFERENCE: * Patients > 75 years receive moderate or high dose statin therapy. * Patients 75 years or YOUNGER should receive HIGH intensity statin dose unless contraindicated. You will be required to document reason for non-treatment if statin daily dose does not meet guidelines. HIGH DOSE STATIN THERAPY DAILY Atorvastatin > than or = to 40 mg Rosuvastatin > than or = to 20 mg Amlodipine + Atorvastatin > than or = to 2.5/40 mg Ezetimibe + Simvastatin 10/80 mg Simvastatin 80mg Discharge Plan Admission Admit Date/Time: 03/10/24 22:24 Attending Provider: Any Oakley Primary Care Provider: Sandrine Mireles Consulting Providers: Hari Alfonso; Irais Sahni; Hari Ma; Ariela Berger Instructions Additional Instructions / Restrictions: 1. Please complete antibiotics as instructed by infectious disease 2. Please call infectious disease office to schedule appointment if you do not hear from them within the next 48 to 72 hours Discharge Orders/Prescriptions Prescriptions: New methenamine hippurate 1 gram tablet 1 g PO BID Qty: 60 2RF Rx Instructions: take with vitamin C Santyl 250 unit/gram Ointment 1 applic topical DAILY Qty: 15 0RF Protocol: *Topical Application Instructions APPLICATION INSTRUCTIONS: wound to abdominal fold Rx Instructions: affected area Continued pantoprazole 40 mg tablet,delayed release (DR/EC) 40 mg PO DAILY ergocalciferol (vitamin D2) 50,000 UNIT capsule 50,000 unit PO MAZA Patient Comments: take 1 capsule by mouth every week on sundays fluoxetine 20 MG capsule 20 mg PO DAILY Patient Comments: depression rosuvastatin [Crestor] 5 mg Tablet 5 mg PO QHS furosemide 40 mg tablet 20 mg PO DAILY PRN (Reason: diuretic) Renal Caps 1 mg capsule 1 cap PO DAILY albuterol sulfate 90 mcg/actuation aerosol powdr breath activated 2 inh inhalation .000 PRN (Reason: shortness of breath) ammonium lactate [Skin Treatment] 12 % lotion 1 applic topical DAILY PRN (Reason: dry skin) Patient Comments: APPLIES TO LEGS amiodarone 200 mg Tablet 200 mg PO DAILY Qty: 0 0RF sennosides-docusate sodium [Stool Softener-Stimulant Laxat] 8.6-50 mg Tablet 2 tab PO BID PRN (Reason: constipation) Rx Instructions: Available [id number]. Eliquis 5 mg tablet 5 mg PO BID Trelegy Ellipta 100-62.5-25 mcg blister with device 1 ea INHALATION DAILY Azo Cranberry 250 mg tablet,chewable 250 mg PO DAILY L.acidoph,saliva-B.bif-S.therm 175 mg Capsule 1 cap PO DAILY Rx Instructions: At least till the patient finishes the antibiotic. Available OTC Referrals / Follow Up: Sandrine Mireles MD [Primary Care Provider] - Within 1 Week Hari Ma MD [Med Staff - Active Staff] - Within 1 Month Hari Alfonso MD [Med Staff - Active Staff] - See Referral Note (As previously scheduled) Disposition Disposition (needs filled in before D/C Order can be placed): Home, Self Care Charges/Coding Visit Charges Inpatient E&M: 31953 Disch Hosp >30min
--- NOTE | 2024-03-15 12:28 | PCM.PN.ID ---
Physical Exam Narrative Feeling better, no fever, no abd pain Const alert and no apparent distress Resp normal air movement and clear to auscultation bilaterally Cardio regular rate and regular rhythm GI soft to palpation, non-tender and non-distended Skin Skin Narrative: no new rash ID ID: Route of nutrition/ use of supplements: [] Nutritional Intake: [] IV Site: [] Croft Catheter: [] Assessment & Plan Assessment/Plan (1) UTI (urinary tract infection): PLAN: Panniculitis appears to be resolved. Seen by Dr. Alfonso here. Reports uti every month. UCx with esbl ecoli. On nguyễn. Discussed options for penitentiary prevention, ok for home off of abx with methenamine for prevention. ID followup in 1 month Will follow, d/w Dr. Oakley (2) Leukocytosis:
--- NOTE | 2024-03-15 12:49 | PN_ITS ---
Subjective Subjective Endorses good dressing changes. No fevers/chills. Objective Data Objective Data Vital Signs: Vital Signs Temp Pulse Resp BP Pulse Ox O2 Del Method O2 Flow Rate 97.4 F L 72 16 129/47 H 97 Nasal Cannula 2 03/15/24 08:56 03/15/24 08:56 03/15/24 08:56 03/15/24 08:56 03/15/24 10:25 03/15/24 10:17 03/15/24 10:25 Oxygen Flow Rate (L/min) 2 Oxygen Delivery Method Nasal Cannula Weight: 322 lb 5.053 oz Body Mass Index (BMI) 50.5 Intake & Output: Intake and Output for Last 24 Hours 03/13/24 03/14/24 03/15/24 23:59 23:59 23:59 Intake Total 2230 / 2230 1740 / 1740 420 / 420 Balance 2230 / 2230 1740 / 1740 420 / 420 Lab / Micro Data 03/15/24 06:00 03/15/24 06:00 Labs: Laboratory Results - last 24 hr 03/15/24 06:00: WBC 5.4, RBC 3.40 L, Hgb 9.7 L, Hct 31.8 L, MCV 93.5, MCH 28.5, MCHC 30.5 L, RDW Std Deviation 51.9 H, RDW Coeff of Ruben 15.0 H, Plt Count 146 L, MPV 12.2 H, Immature Gran % (Auto) 1.500 H, Neut % (Auto) 51.3, Lymph % (Auto) 15.8 L, [place] % (Auto) 13.2 H, Eos % (Auto) 17.1 H, Baso % (Auto) 1.1 H, Absolute Neuts (auto) 2.8, Absolute Lymphs (auto) 0.85, Nucleated RBC % 0, Sodium 144, Potassium 4.0, Chloride 111 H, Carbon Dioxide 29.0, Anion Gap 4 L, BUN 16, C reatinine 1.04 H, Estim Creat Clear Calc 68.25, Est GFR (MDRD) Af Amer 66, Est GFR (MDRD) Non-Af 55 L, BUN/Creatinine Ratio 15.4, Glucose 89, Calcium 9.3 Micro: Microbiology 03/10/24 18:20 Blood Culture (Wb) - Anticubital Left Blood Culture - Preliminary No growth in 48 hours. 03/10/24 19:30 Blood Culture (Wb) - Anticubital Right Blood Culture - Preliminary No growth in 48 hours. 03/10/24 18:20 Urine, Clean Catch Urine Culture - Final ESBL Escherichia coli Rhythm Strip Rhythm Strip: Sinus Rhythm Rate: 92 Ectopy: None Physical Exam Narrative The cellulitis has improved. It is regressing on her abdomen. Dressing changed. There is full-thickness wound to subcutaneous tissues on the abdomen beneath the pannus and mons, but it's shield cleaner with the Santyl. No signs of fluid collections. Assessment & Plan Assessment/Plan (1) Panniculitis: (2) Skin ulcer of abdominal wall with fat layer exposed: PLAN: Plan Continue twice daily dressing changes Added Santyl for enzymatic debridement. Agree with continued antibiotics for cellulitis v UTI PSU to continue to follow. Charges/Coding Visit Charges Inpatient E&M: 56617 Subs Hosp L1
--- NOTE | 2024-03-15 13:47 | PHA.DC_ITS ---
Pharmacy [facility] Pharm[facility] Service has performed discharge medication reconciliation and counseling for this patient. 1. METHENAMINE 1GM PO BID 2. SANTYL TOPICAL ONCE DAILY The patient's discharge medication list was reviewed for discrepancies and discrepancies were resolved. The patient was counseled on the following discharge medications and changes in medications for homegoing were reviewed. The Reason for Use, instructions for use, and potential side effects were reviewed for all new medications. The patient's questions regarding all of their medications were answered. The patient was able to verbally demonstrate an understanding of their discharge medications. Medications at Discharge Home Medications ergocalciferol (vitamin D2) 1,250 mcg (50,000 unit) capsule 50,000 unit PO MAZA SUPPLEMENT 02/25/20 fluoxetine 20 mg capsule 20 mg PO DAILY DEPRESSION 02/25/20 rosuvastatin 5 mg tablet (Crestor) 5 mg PO QHS cholesterol 01/16/21 pantoprazole 40 mg tablet,delayed release 40 mg PO DAILY reflux 03/12/21 amiodarone 200 mg tablet 200 mg PO DAILY heart rate #0 tabs 02/26/23 albuterol sulfate 90 mcg/actuation breath activated powder inhaler 2 inh inhalation .000 PRN shortness of breath 03/27/23 ammonium lactate 12 % lotion (Skin Treatment) 1 applic topical DAILY PRN dry skin 03/27/23 furosemide 40 mg tablet 20 mg PO DAILY PRN diuretic 03/27/23 vitamin B complex and vitamin C no.20-folic acid 1 mg capsule (Renal Caps) 1 cap PO DAILY vitamin 03/27/23 sennosides 8.6 mg-docusate sodium 50 mg tablet (Stool Softener-Stimulant Laxative) 2 tab PO BID PRN constipation 06/25/23 L.acidophil,salivari-Bifido bifidum-Strep thermoph 175 mg capsule 1 cap PO DAILY 01/28/24 apixaban 5 mg tablet (Eliquis) 5 mg PO BID 01/28/24 cranberry fruit concentrate 250 mg chewable tablet (Azo Cranberry) 250 mg PO DAILY 01/28/24 fluticasone fur. 100 mcg-umeclid 62.5 mcg-vilant 25 mcg inhalat.powder (Trelegy Ellipta) 1 ea inhalation DAILY 01/28/24 collagenase clostridium histo. 250 unit/gram topical ointment (Santyl) 1 applic topical DAILY #15 grams 03/15/24 methenamine hippurate 1 gram tablet 1 g PO BID #60 tabs 03/15/24
--- NOTE | 2024-03-18 12:33 | CASEMGMT ---
Addendum entered by Ella Do 03/18/24 17:40: Call placed to pt, she was notified PA obtained for the Santyl and co-pay is $103.79. She plans to [facility] and will discuss further tx with them & inquire if they still wish for her to use Santyl before she picks it up @ [facility]. Addendum entered by Ella Do 03/18/24 17:37: Call placed to [employer] to ask this to be escalated. Per [employer] rep, [employer] will need to be contacted directly to require escalation. Call placed to [employer] @ . PA obtained, PA #: [phone]. Call placed to [facility] pharmacy, made aware PA obtained, co-pay $103.79. Addendum entered by Ella Do 03/18/24 17:31: Per [employer] site, PA may take up to 3-7 days. Per Bee, wound nurse, a tube of Santyl was sent home w/pt from her room @ tx. STUART BRAVO placed call to pt. She states she has been using the tube of Santyl that was sent home w/her and states will have enough until at least Friday, which then she has an appt [facility]. Original Note: STUART BRAVO NOTE: Received [employer] document, buchanan # [id number], for PA needed for Santyl ointment. PA form completed via [employer]. Approval pending. Gee DE LA ROSA RN, CM
== END 2024-03-15 13:45 | disposition home or self-care (01) | DRG 690 ==
LOC: ED 22:38 → MS3 22:48
PROVIDERS: Student in an Organized Health Care Education/Training Program; Admitting Provider Family Medicine; Emergency Provider Emergency Medicine; PCP Internal Medicine; Visit Provider Internal Medicine
DX: N39.0 Urinary tract infection, site not specified (principal); Z68.43 Body mass index [BMI] 50.0-59.9, adult; J96.11 Chronic respiratory failure with hypoxia; S31.109A Unspecified open wound of abdominal wall, unspecified quadrant without penetration into peritoneal cavity, initial encounter; E11.22 Type 2 diabetes mellitus with diabetic chronic kidney disease; B96.20 Unspecified Escherichia coli [E. coli] as the cause of diseases classified elsewhere; J44.9 Chronic obstructive pulmonary disease, unspecified; N18.32 Chronic kidney disease, stage 3b; I12.9 Hypertensive chronic kidney disease with stage 1 through stage 4 chronic kidney disease, or unspecified chronic kidney disease; E11.622 Type 2 diabetes mellitus with other skin ulcer; M79.3 Panniculitis, unspecified; E66.01 Morbid (severe) obesity due to excess calories; K21.9 Gastro-esophageal reflux disease without esophagitis; G47.33 Obstructive sleep apnea (adult) (pediatric); E11.40 Type 2 diabetes mellitus with diabetic neuropathy, unspecified; D72.829 Elevated white blood cell count, unspecified; L98.492 Non-pressure chronic ulcer of skin of other sites with fat layer exposed; B96.89 Other specified bacterial agents as the cause of diseases classified elsewhere; Z79.891 Long term (current) use of opiate analgesic; Z86.718 Personal history of other venous thrombosis and embolism; Z79.51 Long term (current) use of inhaled steroids; Z79.01 Long term (current) use of anticoagulants
CPT/HCPCS: 36415; 71045; 80048; 80053; 81001; 83036; 83605; 85025; 85610; 85730; 87040; 87077; 87086; 87088; 87186; 93005; 94668; 94762; 97110; 97116; 97162; 97166; 97530; 97535; 97802; 99285; J2185; P9612; A4216

== ENCOUNTER → 2024-03-24 | Outpatient (CLI) | payer MEDICARE, OTHER, SELFPAY ==
[2024-03-24 15:57] LABS: Mucous, Urine 0 SEEN /hpf (<or=2+)
[2024-03-24 16:33] LABS: Absolute Lymphocyte Count 0.68 X10^3/uL (0.83-4.51); Absolute Neutrophil Count 6.1 X10^3/uL (2.0-7.7); Basophil# 0.08 X10^3/uL; Eosinophil# 0.69 X10^3/uL; Eosinophils% 8.4 % (0-5); Hematocrit 37.1 % (37-47); Hemoglobin 11.4 g/dL (12.0-15.0); Lymphocyte # 0.68 X10^3/ul (0.83-4.51); Lymphocyte % 8.3 % (19-41); Mean Corp Hgb Conc 30.7 g/dL (32-36); Mean Corpuscular Hgb 28.9 pg (27.0-32.0); Mean Corpuscular Volume 94.2 fL (81-99); Mean Platelet Vol. 11.3 fl (6.2-12.0); Monocyte# 0.66 X10^3/uL; NRBC Flagged by Analyzer 0 % (0-5); Neutrophil # 6.05 X10^3/uL (2.7-7.7); Neutrophil % 73.8 % (47-70); Platelet Count 172 K/mm3 (150-450); RBC Distribution Width CV 15.6 % (11.6-14.6); RBC Distribution Width SD 53.8 fl (35.1-43.9); Red Blood Count 3.94 M/mm3 (4.2-5.4); White Blood Count 8.2 K/mm3 (4.4-11.0)
[2024-03-24 17:18] LABS: ALB/GLOB Ratio 0.8 RATIO (0.9-2.4); AST(SGOT) 15 U/L (15-37); Alanine Aminotransfer ALT/SGPT 27 U/L (13-56); Albumin, Serum 2.8 g/dL (3.2-5.0); Alkaline Phosphatase 101 U/L (45-117); Anion Gap 4 (5-15); BUN 13 mg/dL (7-18); BUN/Creat Ratio 10.6 RATIO (10-20); Calcium,Total 9.5 mg/dL (8.5-10.1); Chloride 110 mmol/L (98-107); Creatinine, Serum 1.23 mg/dL (0.55-1.02); EST Glomerular Filtration Rate 45 mL/min (>60); Est Glom Filt Rate - Afr Amer 54 mL/min (>60); Globulin 3.6 g/dL (2.2-4.2); Glucose 139 mg/dL (74-106); Potassium 3.6 mmol/L (3.5-5.1); Protein, Total 6.4 g/dL (6.4-8.2); Sodium Level 144 mmol/L (136-145)
[2024-03-24 18:07] LABS: Color, Urine Yellow (Yellow); Glucose, Dipstick Normal (Normal); Ketone-Dipstick Negative (Negative); Leukocyte Esterase-Dipstick 500 /ul (Negative); Nitrite-Dipstick Negative (Negative); Occult Blood-Urine 250 /ul (Negative); Protein-Dipstick 15 mg/dl (Negative); Specific Gravity, Urine 1.005 (1.002-1.030); Urine Bilirubin Dipstick Negative (Negative); Urine Clarity Clear (Clear); Urine Urobilinogen Normal (Normal)
[2024-03-24 19:38] LABS: Bacteria 2+ /hpf (None Seen); Squamous Epithelial Cells - UA 0-5 SEEN /hpf (5-10); Transitional Epithelial - Ur 0-5 SEEN /hpf (0-5)
[2024-03-24 19:40] LABS: Red Blood Cells-Urine 5-10 SEEN /hpf (0-5)
[2024-03-24 19:41] LABS: White Blood Cells 10-25 SEEN /hpf (0-5)
== END | disposition home or self-care (01) ==
LOC: LAB 15:45
PROVIDERS: PCP Internal Medicine; Referring Provider Internal Medicine; Visit Provider Internal Medicine
DX: N39.0 Urinary tract infection, site not specified (principal)
CPT/HCPCS: 36415; 80053; 81001; 85025; 87077; 87086; 87088; 87186

== ENCOUNTER 2024-03-29 14:15 | Outpatient (RCR) | payer MEDICARE, OTHER, SELFPAY ==
[2024-02-18 00:24] VITALS: BP 151/57; PULSE 78; RESP 18; TEMP 36.9
[2024-03-29 14:19] VITALS: BP 161/69; PULSE 84; RESP 16; TEMP 36.1
--- NOTE | 2024-03-29 16:42 | PCM.WC.PN ---
History of Present Illness Date of Service: 03/29/24 Chief Complaint: Abdominal wound History of Wound: Nerissa Bradley is a 77-year-old female who presents to the wound healing center today for evaluation management of an abdominal wound. This wound is located in the midline under her pannus. She does have a very large pannus with significant weight. she reports that this wound has been present for approximately 1 month, first came to her attention when she was admitted to the hospital recently. She thinks it is from her wheelchair hitting against the area. At home, she relies on her daughter to assist her with wound care. Since her discharge from the hospital, they have been utilizing Aquacel they were sent home with but she did run out recently. She had been receiving antifungal powder to apply while in the hospital, but does not have this at home. She denies any history of prior wounds in this area. She does have a history of superficial wounds to the bilateral lower extremities which were also noted at the time of her most recent hospitalization early February, but seem to be resolved at this time. She does wear compression stockings. She is trying to do a better job of elevating her legs but does note she cannot lay back too far without having difficulty breathing. She is diabetic but most recent A1c in 11/2022 5.4 and do not see any active medications for diabetes. She does not smoke. She does not take any blood thinners other than aspirin. Current encounter 27 October 2023: Dr. Mireles graciously referred me this very pleasant 77-year-old female for evaluation of a wound beneath her abdominal pannus in the crease. Mrs. Bradley's daughter was present on the phone during our visit we discussed her status. Their main goal from the visit today was to get follow-up for the abdominal wound beneath her pannus. She was admitted to the [facility] for her multiple comorbidities, including treatment of her COPD as well as aortic stenosis, and during this time she was treated for this wound that was developing beneath her pannus. They suggested that she follow-up with the study specialist and [facility] near her home. She reports that she has been doing packing with Vashe soaked Kerlix twice daily and has been putting Interdry beneath the pannus to keep the skin from becoming macerated. No recent problems with yeast. 03 Nov 2023: Doing well overall. No new complaints. No fevers/chills. No new drainage. Daughter has been helping her with the dressing changes with Vashe. 17 Nov 2023: Doing well overall. Endorses good dressing changes. No new problems 08 Dec 2023: Doing well. Compliant with wound care. Seeing Dr. Mireles tomorrow. 29 Dec 2023: New wound on abdomen today. Has not been using the pad, Interdry (ran out and needs more, they've been ordered). No fevers/chills. 12 Jan 2024: Has been using Interdry. No fevers/chills. Here today for check up Current encounter, 26 Jan 2024: Discharged from [facility] recently after admission for UTI. No much progress on wound. Reports high protein intake and being intentional about this. Subjective Subjective Current Encounter, 29 Mar 2024: Doing well. Endorses good dressing changes with daugter. No fevers or chills. Objective Data Objective Data Vital Signs: Vital Signs Temp Pulse Resp BP O2 Del Method 97 F L 84 16 161/69 H Room Air 03/29/24 14:19 03/29/24 14:19 03/29/24 14:19 03/29/24 14:19 03/29/24 14:19 Oxygen Delivery Method Room Air Charges/Coding Procedures Integumentary 111xxx-113xx: 39991 Sloane subq tissue 20 sq cm/< Add On Codes: 26279 Sloane subq tissue add-on Physical Exam Narrative The cellulitis is gone, no induration or redness on the abdominal pannus. Measures 6 x 4 cm Dressing changed. There is full-thickness wound to subcutaneous tissues on the abdomen beneath the pannus and mons, very clean and with beefy red granulation tissue at the base of the wound. Debridement Note Debridement Note Wound debrided: Abdominal wound (beneath abdominal pannus) Laterality: Not Applicable Wound Grade/Stage: 3 Type of Debridement: Excisional debridement Anesthesia Used: 4% Lidocaine Solution Depth: in the subcutaneous layer Percentage of wound debrided: 100 Instrument Used: 7mm curette Severity: Fat Layer Exposed Amount of bleeding with debridement: Moderate Bleeding Controlled with: Compression and gauze Patient tolerated procedure: Patient tolerated procedure well Post-Debridement Measurements and Additional Note: Post-Debridement Measurements/Treatment WC - Nurse 1 - General Ulcer Assessment Start: 03/29/24 14:19 Freq: Status: Active Protocol: WC.MARIO Activity Type Activity Date Activity User E-sign Co-sign Detail Recorded Client Recorded Date Recorded By Document 03/29/24 14:19 [facility] [id number] 03/29/24 14:26 [facility] 03/29/24 14:19 - Today's Visit Information Type of service Follow-up Visit (Physician/SYSTEM TECHNOLOGIST ) Arrival Mode Wheelchair Transfer Assistance Other Transfer Assist (Other) 2 Vital Signs Temperature (97.8 F-99.1 F) 97 F L Temperature Source Temporal Pulse Rate (60-100) 84 Pulse Location Monitor Respiratory Rate (12-18) 16 Respiratory rate source Observation Oxygen Delivery Method Room Air Blood Pressure (90/60-120/80) 161/69 H Blood Pressure Mean (mm Hg) 99 Source Monitor Position Sitting Blood Pressure Location Right Arm History Since Last Visit- (Skip if this is Patient's initial visit) Have you changed medications since your No last visit? Any new allergies or adverse reactions No Had a fall/change in ADL's that may No increase risk of falls Signs or symptoms of abuse and/or No neglect since last visit Have you been in the hospital since your Yes last visit? Left Footwear Regular Shoe Right Footwear Regular Shoe Pain Scale: 0-10 Numeric Is Patient Pain Free? Yes - Nurse 1 - General Ulcer Measurement Start: 03/29/24 14:19 Freq: Status: Active Protocol: Activity Type Activity Date Activity User E-sign Co-sign Detail Recorded Client Recorded Date Recorded By Document 03/29/24 14:19 [facility] [id number] 03/29/24 14:26 [facility] 03/29/24 14:19 Wound Center Nurse 1 #2 R ABD -Combined with other wound No -Granulation Amt Large (67-100%) -Granulation Quality Red -Slough/Fibrin No -Necrosis Amt None Present (0 %) -Texture (Esther-wound Skin Appearance) Assessed, Scarring -Moisture (Esther-wound Skin Appearance) Assessed -Color (Esther-wound Skin Appearance) Assessed -Ulcer Cleansing Soap and Water -Foul Odor after Cleansing No -Anesthetic Used 5% Lidocaine Gel -Wound Comment(s) pt refuses for HOB TO BE LAID DOWN TO ASSESS WOUND. W/ 2 ASSIST, UNABLE TO LIFT HER PANNUS HIGH ENOUGH TO MEASURE WOUND OR PHOTOGRAPH. STRONG, PUNGENT ODOR NOTED TO SKIN FOLDS/ WOUND. NOT NEW FOR THIS PT. - Nurse 2 - General Ulcer CM Notes Start: 03/29/24 14:19 Freq: Status: Active Protocol: Activity Type Activity Date Activity User E-sign Co-sign Detail Recorded Client Recorded Date Recorded By Document 03/29/24 14:50 [facility] [id number] 03/29/24 15:03 [facility] 03/29/24 14:50 Wound Center Nurse 2 -Time 14:51 -Correct Patient Yes -Correct Side, Site, Position Yes -Correct Procedure Yes -Procedure Performed Yes -Type of Procedure Debridement -Clinical Debridement Subcutaneous -Tissue Removed Subcutaneous -Post Debridement (cm) - Length 6 -Post Debridement (cm) - Width 4 -Post Debridement (cm) - Depth 0.1 -Total Square (Post) (cm) 24 -Area of Debridement (cm) - Length 6 -Area of Debridement (cm) - Width 4 -Total Square (Area) (cm) 24 -Tunneling No -Undermining/Tunneling No -Circular Undermining No -Wound/Ulcer Outcome Not Healed -Ulcer Cleansing Rinsed/ Irrigated with Saline -Foul Odor after Cleansing No -Bioengineered Tissue No -Bleeding Controlled with Pressure,Silver Nitrate -Treatment Response Procedure Tolerated Well -Debridement - Subq, 1st 20sq cm Yes -Debridement, SubQ, ea addt'l 20sq cm 1 or part thereof -Wound Comment(s) PT HAS DAUGHTER LISTENING/ TALKING W/ MD ON PHONE DURING OFFICE VISIT Pain Scale: 0-10 Numeric Is Patient Pain Free? Yes - Nurse 3 - General Ulcer D/C NN Start: 03/29/24 14:19 Freq: Status: Active Protocol: Activity Type Activity Date Activity User E-sign Co-sign Detail Recorded Client Recorded Date Recorded By Document 03/29/24 15:03 [facility] [id number] 03/29/24 15:03 [facility] 03/29/24 15:03 Wound Care Center Nurse 3 #2 R ABD -Ulcer Cleansing Soap and Water -Foul Odor after Cleansing No -Other Dressing DAKINS MOIST GAUZE; PER DL SPRAY MAKER -Primary Dressing Covered/Secured with Secured with Tape -Other Covering ABD X 2 Treatment Response Procedure Tolerated Well Pain Scale: 0-10 Numeric Is Patient Pain Free? Yes - Visit Discharge Discharge Condition Stable Ambulatory Status Wheelchair Transportation Private Auto Notes: 2 STAFF TO ASSIST PT VIA W /C OUT TO VEHICLE Assessment/Plan Assessment/Plan (1) Skin ulcer of abdominal wall with fat layer exposed: CODE(S): L98.492 - Non-pressure chronic ulcer of skin of other sites with fat layer exposed PLAN: Patient and her daughter had reasonable expectations for her visit today (wound care). They are not interested in any body contouring procedures for the abdominal pannus at [facility] and would like to have any surgery performed at [facility], which I think is appropriate. The above debridement was performed and the wound was cleaned. I will continue to follow the patient in the wound care center. We are going to continue the Vashe twice daily dressing changes as this seems to be helping the wound heal and they have noticed some improvement. I will see her weekly in the wound care center. Plan from 03 Nov 2023: Wound improving. Patient and daughter happy with plan right now. Seems to be healing with current dressing change regimen. Continue dressing changes with Vashe/Kerlix packing. F/u 1 week Plan from 18 November 2023: Wound improving and should continue current regimen with Vashe and Kerlix packing twice daily. Continue moisture management with current regimen as well. Follow-up in 2 weeks Plan from 08 Dec 2023: Continue to do the Vashe Kerlix packing. She's healing quite well. F/u in 3 weeks. Plan from 29 Dec 2023: Switch to Aquacel Ag daily and start the interdry. The secondary wound has developed because they have had problems with maceration. I think this will heal quickly if things stay dry. They were happy with the plan. F/u in 2 weeks in the [facility] Plan from 12 Jan 2024: Continue Aquacel Ag and Interdry over wound. Doing well considering the tunneled wound has healed. Should be able to heal this superficial wound quickly, but need to keep the skin dry to prevent further wounds (likely the etiology of this recent wound was macerated skin). F/u in 2 weeks Plan from 26 Jan 2024: Continue Aquacel Ag and Interdry over wound, but try to change the Aqaucel twice daily. Small step back with the admission, but doing better overall and can get this healed with continued local wound care. Plan from 29 Mar 2024: Continue Vashe WTD BID and Interdry over wound. F/u in 3 weeks to check the progress of the wound.
== END 2024-04-16 23:59 | disposition home or self-care (01) ==
LOC: WC 14:15
PROVIDERS: PCP Internal Medicine; Referring Provider Internal Medicine; Visit Provider Surgery Plastic and Reconstructive Surgery
DX: L98.492 Non-pressure chronic ulcer of skin of other sites with fat layer exposed (principal); J44.9 Chronic obstructive pulmonary disease, unspecified; E11.9 Type 2 diabetes mellitus without complications; I35.0 Nonrheumatic aortic (valve) stenosis; Z79.82 Long term (current) use of aspirin
CPT/HCPCS: 11042; 11045

== ENCOUNTER 2024-04-26 15:16 | Outpatient (RCR) | payer MEDICARE, OTHER, SELFPAY ==
[2024-04-17 01:39] VITALS: BP 161/69; PULSE 84; RESP 16; TEMP 36.1
[2024-04-26 15:28] VITALS: BP 156/60; PULSE 84; RESP 22; TEMP 36.7
--- NOTE | 2024-04-26 16:47 | PCM.WC.PN ---
History of Present Illness Date of Service: 04/26/24 Chief Complaint: Abdominal wound History of Wound: Nerissa Bradley is a 77-year-old female who presents to the wound healing center today for evaluation management of an abdominal wound. This wound is located in the midline under her pannus. She does have a very large pannus with significant weight. she reports that this wound has been present for approximately 1 month, first came to her attention when she was admitted to the hospital recently. She thinks it is from her wheelchair hitting against the area. At home, she relies on her daughter to assist her with wound care. Since her discharge from the hospital, they have been utilizing Aquacel they were sent home with but she did run out recently. She had been receiving antifungal powder to apply while in the hospital, but does not have this at home. She denies any history of prior wounds in this area. She does have a history of superficial wounds to the bilateral lower extremities which were also noted at the time of her most recent hospitalization early February, but seem to be resolved at this time. She does wear compression stockings. She is trying to do a better job of elevating her legs but does note she cannot lay back too far without having difficulty breathing. She is diabetic but most recent A1c in 11/2022 5.4 and do not see any active medications for diabetes. She does not smoke. She does not take any blood thinners other than aspirin. Current encounter 27 October 2023: Dr. Mireles graciously referred me this very pleasant 77-year-old female for evaluation of a wound beneath her abdominal pannus in the crease. Mrs. Bradley's daughter was present on the phone during our visit we discussed her status. Their main goal from the visit today was to get follow-up for the abdominal wound beneath her pannus. She was admitted to the [facility] for her multiple comorbidities, including treatment of her COPD as well as aortic stenosis, and during this time she was treated for this wound that was developing beneath her pannus. They suggested that she follow-up with the software product specialist and [facility] near her home. She reports that she has been doing packing with Vashe soaked Kerlix twice daily and has been putting Interdry beneath the pannus to keep the skin from becoming macerated. No recent problems with yeast. 03 Nov 2023: Doing well overall. No new complaints. No fevers/chills. No new drainage. Daughter has been helping her with the dressing changes with Vashe. 17 Nov 2023: Doing well overall. Endorses good dressing changes. No new problems 08 Dec 2023: Doing well. Compliant with wound care. Seeing Dr. Mireles tomorrow. 29 Dec 2023: New wound on abdomen today. Has not been using the pad, Interdry (ran out and needs more, they've been ordered). No fevers/chills. 12 Jan 2024: Has been using Interdry. No fevers/chills. Here today for check up 26 Jan 2024: Discharged from [facility] recently after admission for UTI. No much progress on wound. Reports high protein intake and being intentional about this. Subjective Subjective Current Encounter, 29 Mar 2024: Doing well. Endorses good dressing changes with daughter. No fevers or chills. Current encounter, 26 April 2024: Doing well overall. Reports good dressing changes. No new wounds. Objective Data Objective Data Vital Signs: Vital Signs Temp Pulse Resp BP 98.1 F 84 22 H 156/60 H 04/26/24 15:28 04/26/24 15:28 04/26/24 15:28 04/26/24 15:28 Charges/Coding Procedures Integumentary 111xxx-113xx: 46375 Sloane subq tissue 20 sq cm/< Physical Exam Narrative No induration or redness around the abdominal pannus. Measures 4 x 3.2 cm Dressing changed. There is full-thickness wound to subcutaneous tissues on the abdomen beneath the pannus and mons, very clean and with beefy red granulation tissue at the base of the wound. Debridement Note Debridement Note Wound debrided: Panniculectomy wound (beneath the pannus) Laterality: Not Applicable Wound Grade/Stage: 3 Type of Debridement: Excisional debridement Anesthesia Used: 4% Lidocaine Solution Depth: in the subcutaneous layer Percentage of wound debrided: 100 Instrument Used: 7mm curette Tissue Removed: Necrotic fat/biofilm/hypertrophic granulation tissue Severity: Fat Layer Exposed Post-Debridement Measurements and Additional Note: Post-Debridement Measurements/Treatment LAKESHIA - Nurse 1 - General Ulcer Assessment Start: 04/26/24 15:28 Freq: Status: Active Protocol: MITCH Activity Type Activity Date Activity User E-sign Co-sign Detail Recorded Client Recorded Date Recorded By Document 04/26/24 15:28 DL [id number] 04/26/24 15:33 DL 04/26/24 15:28 WC - Today's Visit Information Type of service Follow-up Visit (Physician/DATA PROCESSING SPECIALIST ) Arrival Mode Wheelchair Transfer Assistance Manual Patient Identification Verified (Name & Yes ) Patient Requires Transmission-Based No Precautions Vital Signs Temperature (97.8 F-99.1 F) 98.1 F Temperature Source Temporal Pulse Rate (60-100) 84 Pulse Location Monitor Respiratory Rate (12-18) 22 H Respiratory rate source Observation Blood Pressure (90/60-120/80) 156/60 H Blood Pressure Mean (mm Hg) 92 Source Monitor History Since Last Visit- (Skip if this is Patient's initial visit) Have you changed medications since your No last visit? Any new allergies or adverse reactions No Had a fall/change in ADL's that may No increase risk of falls Have you been in the hospital since your No last visit? Has dressing in place as prescribed Yes Has compression in place as prescribed N/A Has offloadiing in place as prescribed Yes Experienced any changes in pain level or No management Pain Scale: 0-10 Numeric Is Patient Pain Free? Yes - Nurse 1 - General Ulcer Measurement Start: 04/26/24 15:28 Freq: Status: Active Protocol: Activity Type Activity Date Activity User E-sign Co-sign Detail Recorded Client Recorded Date Recorded By Document 04/26/24 15:28 DL [id number] 04/26/24 15:33 DL 04/26/24 15:28 Wound Center Nurse 1 #2 R ABD -Current Size (cm) - Length 3.2 -Current Size (cm) - Width 4 -Current Size (cm) - Depth 0.3 -Total Square Cm 12.8 -Photo Taken Yes -Exudate Amt Medium -Exudate Type Serosanguineous -Wound Margin Distinct, Outline Attached -Granulation Amt Large (67-100%) -Granulation Quality Red -Texture (Esther-wound Skin Appearance) Assessed,Rash -Moisture (Esther-wound Skin Appearance) Assessed -Color (Esther-wound Skin Appearance) Assessed, Erythema -Temperature (Esther-wound Skin No Abnormality Appearance) (Pt Warm) -Tenderness on Palpation (Esther-wound No Skin Appearance) -Ulcer Cleansing Soap and Water -Foul Odor after Cleansing Yes -Anesthetic Used 5% Lidocaine Gel -Wound Comment(s) bleeding - Nurse 2 - General Ulcer CM Notes Start: 04/26/24 15:28 Freq: Status: Active Protocol: Activity Type Activity Date Activity User E-sign Co-sign Detail Recorded Client Recorded Date Recorded By Document 04/26/24 15:46 MUSA [id number] 04/26/24 15:48 04/26/24 15:46 Wound Center Nurse 2 -Time 15:46 -Correct Patient Yes -Correct Side, Site, Position Yes -Correct Procedure Yes -Procedure Performed Yes -Type of Procedure Debridement -Clinical Debridement Subcutaneous -Tissue Removed Subcutaneous -Post Debridement (cm) - Length 3.5 -Post Debridement (cm) - Width 4.5 -Post Debridement (cm) - Depth 0.3 -Total Square (Post) (cm) 15.75 -Area of Debridement (cm) - Length 3.5 -Area of Debridement (cm) - Width 4.5 -Total Square (Area) (cm) 15.75 -Tunneling No -Undermining/Tunneling No -Circular Undermining No -Wound/Ulcer Outcome Not Healed -Ulcer Cleansing Rinsed/ Irrigated with Saline -Foul Odor after Cleansing No -Bioengineered Tissue No -Bleeding Controlled with Pressure -Treatment Response Procedure Tolerated Well -Offloading No -Debridement - Subq, 1st 20sq cm Yes Pain Scale: 0-10 Numeric Is Patient Pain Free? Yes - Nurse 3 - General Ulcer D/C NN Start: 04/26/24 15:28 Freq: Status: Active Protocol: Activity Type Activity Date Activity User E-sign Co-sign Detail Recorded Client Recorded Date Recorded By Document 04/26/24 15:49 [id number] 04/26/24 15:49 04/26/24 15:49 Wound Care Center Nurse 3 #2 R ABD -Ulcer Cleansing Rinsed/ Irrigated with Saline -Foul Odor after Cleansing No -Other Dressing dakin's -Primary Dressing Covered/Secured with Dry Gauze, Secured with Tape Pain Scale: 0-10 Numeric Is Patient Pain Free? Yes - Visit Discharge Discharge Condition Stable Ambulatory Status Wheelchair Transportation Private Auto Medication Reconcilliation completed & Yes provided to patient/care provider Clinical Summary of Care Provided Yes Assessment/Plan Assessment/Plan (1) Skin ulcer of abdominal wall with fat layer exposed: CODE(S): L98.492 - Non-pressure chronic ulcer of skin of other sites with fat layer exposed PLAN: Patient and her daughter had reasonable expectations for her visit today (wound care). They are not interested in any body contouring procedures for the abdominal pannus at [facility] and would like to have any surgery performed at [facility], which I think is appropriate. The above debridement was performed and the wound was cleaned. I will continue to follow the patient in the wound care center. We are going to continue the Vashe twice daily dressing changes as this seems to be helping the wound heal and they have noticed some improvement. I will see her weekly in the wound care center. Plan from 03 Nov 2023: Wound improving. Patient and daughter happy with plan right now. Seems to be healing with current dressing change regimen. Continue dressing changes with Vashe/Kerlix packing. F/u 1 week Plan from 18 November 2023: Wound improving and should continue current regimen with Vashe and Kerlix packing twice daily. Continue moisture management with current regimen as well. Follow-up in 2 weeks Plan from 08 Dec 2023: Continue to do the Vashe Kerlix packing. She's healing quite well. F/u in 3 weeks. Plan from 29 Dec 2023: Switch to Aquacel Ag daily and start the interdry. The secondary wound has developed because they have had problems with maceration. I think this will heal quickly if things stay dry. They were happy with the plan. F/u in 2 weeks in the [facility] Plan from 12 Jan 2024: Continue Aquacel Ag and Interdry over wound. Doing well considering the tunneled wound has healed. Should be able to heal this superficial wound quickly, but need to keep the skin dry to prevent further wounds (likely the etiology of this recent wound was macerated skin). F/u in 2 weeks Plan from 26 Jan 2024: Continue Aquacel Ag and Interdry over wound, but try to change the Aqaucel twice daily. Small step back with the admission, but doing better overall and can get this healed with continued local wound care. 29 Mar 2024: Continue Vashe WTD BID and Interdry over wound. F/u in 3 weeks to check the progress of the wound. Plan from 27 April 2024: Doing well. Wound much smaller overall.Continue Interdry and BID Vashe WTD. If consistent wound care is performed, I think she will heal this wound soon.
--- NOTE | 2024-04-27 08:50 | WC ---
PHOTO 04/26/24
== END 2024-05-17 23:59 | disposition home or self-care (01) ==
LOC: WC 15:16
PROVIDERS: PCP Internal Medicine; Referring Provider Internal Medicine; Visit Provider Surgery Plastic and Reconstructive Surgery
DX: L98.492 Non-pressure chronic ulcer of skin of other sites with fat layer exposed (principal); J44.9 Chronic obstructive pulmonary disease, unspecified; E11.9 Type 2 diabetes mellitus without complications; I35.0 Nonrheumatic aortic (valve) stenosis; Z79.82 Long term (current) use of aspirin
CPT/HCPCS: 11042

== ENCOUNTER 2024-06-02 14:11 | Outpatient (CLI) | payer MEDICARE, OTHER, SELFPAY ==
[2024-06-02 15:07] LABS: Absolute Neutrophil Count 3.3 X10^3/uL (2.0-7.7); Basophil# 0.05 X10^3/uL; Basophil% 0.8 % (0-1); Eosinophil# 1.06 X10^3/uL; Eosinophils% 17.3 % (0-5); Hematocrit 35.2 % (37-47); Hemoglobin 11.2 g/dL (12.0-15.0); Lymphocyte % 16.3 % (19-41); Mean Corp Hgb Conc 31.8 g/dL (32-36); Mean Corpuscular Hgb 29.2 pg (27.0-32.0); Mean Corpuscular Volume 91.7 fL (81-99); Mean Platelet Vol. 11.7 fl (6.2-12.0); Monocyte# 0.63 X10^3/uL; Monocyte% 10.3 % (0-10); NRBC Flagged by Analyzer 0 % (0-5); Neutrophil # 3.32 X10^3/uL (2.7-7.7); Neutrophil % 54.2 % (47-70); Platelet Count 161 K/mm3 (150-450); RBC Distribution Width CV 14.3 % (11.6-14.6); RBC Distribution Width SD 48.5 fl (35.1-43.9); Red Blood Count 3.84 M/mm3 (4.2-5.4); White Blood Count 6.1 K/mm3 (4.4-11.0)
[2024-06-02 15:36] LABS: AST(SGOT) 24 U/L (<=31); Alanine Aminotransfer ALT/SGPT 25 U/L (<=34); Albumin, Serum 3.5 g/dL (3.4-4.8); Alkaline Phosphatase 90 U/L (35-104); Bilirubin, Direct 0.17 mg/dL (0.00-0.30); Creatinine, Serum 1.26 mg/dL (0.70-1.20); EST Glomerular Filtration Rate 44 (>60); Globulin 2.8 g/dL (2.2-4.2); Protein, Total 6.2 g/dL (5.9-8.4)
== END 2024-06-02 23:59 | disposition home or self-care (01) ==
LOC: MEDOUTP 14:13
PROVIDERS: PCP Internal Medicine
DX: Z45.2 Encounter for adjustment and management of vascular access device (principal); N39.0 Urinary tract infection, site not specified; B96.20 Unspecified Escherichia coli [E. coli] as the cause of diseases classified elsewhere
CPT/HCPCS: 36592; 80076; 82565; 85025; A4216

== ENCOUNTER 2024-06-14 15:15 | Outpatient (RCR) | payer MEDICARE, OTHER, SELFPAY ==
[2024-05-18 00:50] VITALS: BP 156/60; PULSE 84; RESP 22; TEMP 36.7
[2024-06-14 15:10] VITALS: BP 140/68; PULSE 69; RESP 18; TEMP 36.3
--- NOTE | 2024-06-15 05:49 | PCM.WC.PN ---
History of Present Illness Date of Service: 06/14/24 Chief Complaint: Abdominal wound History of Wound: Nerissa Bradley is a 77-year-old female who presents to the wound healing center today for evaluation management of an abdominal wound. This wound is located in the midline under her pannus. She does have a very large pannus with significant weight. she reports that this wound has been present for approximately 1 month, first came to her attention when she was admitted to the hospital recently. She thinks it is from her wheelchair hitting against the area. At home, she relies on her daughter to assist her with wound care. Since her discharge from the hospital, they have been utilizing Aquacel they were sent home with but she did run out recently. She had been receiving antifungal powder to apply while in the hospital, but does not have this at home. She denies any history of prior wounds in this area. She does have a history of superficial wounds to the bilateral lower extremities which were also noted at the time of her most recent hospitalization early February, but seem to be resolved at this time. She does wear compression stockings. She is trying to do a better job of elevating her legs but does note she cannot lay back too far without having difficulty breathing. She is diabetic but most recent A1c in 11/2022 5.4 and do not see any active medications for diabetes. She does not smoke. She does not take any blood thinners other than aspirin. 27 October 2023: Dr. Mireles graciously referred me this very pleasant 77-year-old female for evaluation of a wound beneath her abdominal pannus in the crease. Mrs. Bradley's daughter was present on the phone during our visit we discussed her status. Their main goal from the visit today was to get follow-up for the abdominal wound beneath her pannus. She was admitted to the [facility] for her multiple comorbidities, including treatment of her COPD as well as aortic stenosis, and during this time she was treated for this wound that was developing beneath her pannus. They suggested that she follow-up with the claims support specialist and [facility] near her home. She reports that she has been doing packing with Vashe soaked Kerlix twice daily and has been putting Interdry beneath the pannus to keep the skin from becoming macerated. No recent problems with yeast. 03 Nov 2023: Doing well overall. No new complaints. No fevers/chills. No new drainage. Daughter has been helping her with the dressing changes with Vashe. 17 Nov 2023: Doing well overall. Endorses good dressing changes. No new problems 08 Dec 2023: Doing well. Compliant with wound care. Seeing Dr. Mireles tomorrow. 29 Dec 2023: New wound on abdomen today. Has not been using the pad, Interdry (ran out and needs more, they've been ordered). No fevers/chills. 12 Jan 2024: Has been using Interdry. No fevers/chills. Here today for check up 26 Jan 2024: Discharged from [facility] recently after admission for UTI. No much progress on wound. Reports high protein intake and being intentional about this. Subjective Subjective 29 Mar 2024: Doing well. Endorses good dressing changes with daughter. No fevers or chills. 26 April 2024: Doing well overall. Reports good dressing changes. No new wounds. Current encounter, 14 June 2024: Was admitted to [facility] for pannicular cellulitis and UTI, but doing well at home now. Has been consistent with her dressing changes. Feels like wound is getting smaller Objective Data Objective Data Vital Signs: Vital Signs Temp Pulse Resp BP O2 Del Method 97.3 F L 69 18 140/68 H Room Air 06/14/24 15:10 06/14/24 15:10 06/14/24 15:10 06/14/24 15:10 06/14/24 15:10 Oxygen Delivery Method Room Air Charges/Coding Wound Center CF Procedures [id number]: [id number] RMVL DEVITAL TIS 20 CM/< Multi Select Codes Wound Center CF Procedures [id number]: [id number] RMVL DEVITAL TIS 20 CM/< Physical Exam Narrative No induration or redness around the abdominal pannus. There is a small wound that measures 1 x 2 cm within the fold of the pannus Dressing changed. There is granulation tissue at the base of the wound. Debridement Note Debridement Note Wound debrided: Pannicular wound Laterality: Not Applicable Wound Grade/Stage: 3 Type of Debridement: Excisional debridement Anesthesia Used: 4% Lidocaine Solution Depth: Down to and including healthy tissue Percentage of wound debrided: 100 Instrument Used: 5mm curette Tissue Removed: Hypertrophic granulation tissue and biofilm Severity: Limited To Skin Breakdown Amount of bleeding with debridement: Mild Bleeding Controlled with: Compression and gauze Patient tolerated procedure: Patient tolerated procedure well Post-Debridement Measurements and Additional Note: Post-Debridement Measurements/Treatment WC - Nurse 1 - General Ulcer Assessment Start: 06/14/24 15:09 Freq: Status: Active Protocol: MITCH Activity Type Activity Date Activity User E-sign Co-sign Detail Recorded Client Recorded Date Recorded By Document 06/14/24 15:10 KW [id number] 06/14/24 15:22 KW 06/14/24 15:10 Vital Signs Temperature (97.8 F-99.1 F) 97.3 F L Temperature Source Temporal Pulse Rate (60-100) 69 Pulse Location Monitor Respiratory Rate (12-18) 18 Respiratory rate source Monitor Oxygen Delivery Method Room Air Blood Pressure (90/60-120/80) 140/68 H Blood Pressure Mean (mm Hg) 92 Source Monitor Position Sitting Blood Pressure Location Right Arm History Since Last Visit- (Skip if this is Patient's initial visit) Have you changed medications since your No last visit? Any new allergies or adverse reactions No Had a fall/change in ADL's that may No increase risk of falls Signs or symptoms of abuse and/or No neglect since last visit Have you been in the hospital since your No last visit? Has dressing in place as prescribed Yes Has compression in place as prescribed N/A Has offloadiing in place as prescribed N/A Experienced any changes in pain level or No management Left Footwear Regular Shoe Right Footwear Regular Shoe Pain Scale: 0-10 Numeric Is Patient Pain Free? Yes LAKESHIA - Nurse 1 - General Ulcer Measurement Start: 06/14/24 15:09 Freq: Status: Active Protocol: Activity Type Activity Date Activity User E-sign Co-sign Detail Recorded Client Recorded Date Recorded By Document 06/14/24 15:10 KW [id number] 06/14/24 15:22 KW 06/14/24 15:10 Wound Center Nurse 1 #2 R ABD -Current Size (cm) - Length 0.5 -Current Size (cm) - Width 1.5 -Current Size (cm) - Depth 0.1 -Total Square Cm 0.75 -Date of Last Picture (Recall this 06/14/24 field) -Epithelialization Medium 34-66% -Exudate Amt Small -Exudate Type Sanguineous -Wound Margin Distinct, Outline Attached -Granulation Amt Large (67-100%) -Granulation Quality Hyper- granulation, [place],Red -Texture (Esther-wound Skin Appearance) Assessed -Moisture (Esther-wound Skin Appearance) Assessed -Color (Esther-wound Skin Appearance) Assessed -Temperature (Esther-wound Skin No Abnormality Appearance) (Pt Warm) -Tenderness on Palpation (Esther-wound No Skin Appearance) -Ulcer Cleansing Soap and Water -Foul Odor after Cleansing No -Anesthetic Used 5% Lidocaine Gel WC - Nurse 2 - General Ulcer CM Notes Start: 06/14/24 15:09 Freq: Status: Active Protocol: Activity Type Activity Date Activity User E-sign Co-sign Detail Recorded Client Recorded Date Recorded By Document 06/14/24 15:34 MUSA [id number] 06/14/24 15:35 06/14/24 15:34 Wound Center Nurse 2 -Time 15:34 -Correct Patient Yes -Correct Side, Site, Position Yes -Correct Procedure Yes -Procedure Performed Yes -Type of Procedure Debridement -Clinical Debridement Epidermis / Dermis -Tissue Removed Epidermis, Dermis -Post Debridement (cm) - Length 2 -Post Debridement (cm) - Width 1 -Post Debridement (cm) - Depth 0.2 -Total Square (Post) (cm) 2 -Area of Debridement (cm) - Length 2 -Area of Debridement (cm) - Width 1 -Total Square (Area) (cm) 2 -Tunneling No -Undermining/Tunneling No -Circular Undermining No -Wound/Ulcer Outcome Not Healed -Ulcer Cleansing Rinsed/ Irrigated with Saline -Foul Odor after Cleansing No -Bioengineered Tissue No -Bleeding Controlled with Pressure -Treatment Response Procedure Tolerated Well -Offloading No -Debridement - Open, 1st 20sq cm Yes Pain Scale: 0-10 Numeric Is Patient Pain Free? Yes - Nurse 3 - General Ulcer D/C NN Start: 06/14/24 15:09 Freq: Status: Active Protocol: Activity Type Activity Date Activity User E-sign Co-sign Detail Recorded Client Recorded Date Recorded By Document 06/14/24 15:35 MUSA [id number] 06/14/24 15:35 06/14/24 15:35 Wound Care Center Nurse 3 #2 R ABD -Ulcer Cleansing Rinsed/ Irrigated with Saline -Foul Odor after Cleansing No -Aquacel AG 4x4 1 Pain Scale: 0-10 Numeric Is Patient Pain Free? Yes WC - Visit Discharge Discharge Condition Stable Ambulatory Status Wheelchair Transportation Private Auto Medication Reconcilliation completed & Yes provided to patient/care provider Assessment/Plan Assessment/Plan (1) Skin ulcer of abdominal wall with fat layer exposed: CODE(S): L98.492 - Non-pressure chronic ulcer of skin of other sites with fat layer exposed PLAN: Patient and her daughter had reasonable expectations for her visit today (wound care). They are not interested in any body contouring procedures for the abdominal pannus at [facility] and would like to have any surgery performed at [facility], which I think is appropriate. The above debridement was performed and the wound was cleaned. I will continue to follow the patient in the wound care center. We are going to continue the Vashe twice daily dressing changes as this seems to be helping the wound heal and they have noticed some improvement. I will see her weekly in the wound care center. Plan from 03 Nov 2023: Wound improving. Patient and daughter happy with plan right now. Seems to be healing with current dressing change regimen. Continue dressing changes with Vashe/Kerlix packing. F/u 1 week Plan from 18 November 2023: Wound improving and should continue current regimen with Vashe and Kerlix packing twice daily. Continue moisture management with current regimen as well. Follow-up in 2 weeks Plan from 08 Dec 2023: Continue to do the Vashe Kerlix packing. She's healing quite well. F/u in 3 weeks. Plan from 29 Dec 2023: Switch to Aquacel Ag daily and start the interdry. The secondary wound has developed because they have had problems with maceration. I think this will heal quickly if things stay dry. They were happy with the plan. F/u in 2 weeks in the [facility] Plan from 12 Jan 2024: Continue Aquacel Ag and Interdry over wound. Doing well considering the tunneled wound has healed. Should be able to heal this superficial wound quickly, but need to keep the skin dry to prevent further wounds (likely the etiology of this recent wound was macerated skin). F/u in 2 weeks Plan from 26 Jan 2024: Continue Aquacel Ag and Interdry over wound, but try to change the Aqaucel twice daily. Small step back with the admission, but doing better overall and can get this healed with continued local wound care. 29 Mar 2024: Continue Vashe WTD BID and Interdry over wound. F/u in 3 weeks to check the progress of the wound. Plan from 27 April 2024: Doing well. Wound much smaller overall.Continue Interdry and BID Vashe WTD. If consistent wound care is performed, I think she will heal this wound soon. Plan from 14 May 2024: Vast improvement/continue the Interdry with twice daily dressing changes. Wound continues to get smaller and may heal soon.
--- NOTE | 2024-06-15 09:10 | WC ---
PHOTO 06/14/24 ABD
== END 2024-06-16 23:59 | disposition home or self-care (01) ==
LOC: WC 15:15
PROVIDERS: PCP Internal Medicine; Referring Provider Internal Medicine; Visit Provider Surgery Plastic and Reconstructive Surgery
DX: L98.491 Non-pressure chronic ulcer of skin of other sites limited to breakdown of skin (principal); J44.9 Chronic obstructive pulmonary disease, unspecified; E11.9 Type 2 diabetes mellitus without complications; I35.0 Nonrheumatic aortic (valve) stenosis; Z79.82 Long term (current) use of aspirin
CPT/HCPCS: 97597

== ENCOUNTER 2024-06-23 10:37 | Inpatient (IN) | payer MEDICARE, OTHER, SELFPAY ==
[2024-06-23] VITALS (15 sets, daily range): BP systolic 110–158; BP diastolic 45–89; PULSE 80–103; RESP 15–95; TEMP 36.8–38.8; O2SAT 92–99; BMI 46.6; BMI 46.0
--- NOTE | 2024-06-23 10:51 | EKG12_ITS ---
Test Reason : SOB Blood Pressure : */* mmHG Vent. Rate : 99 BPM Atrial Rate : * BPM P-R Int : * ms QRS Dur : 96 ms QT Int : 372 ms P-R-T Axes : * -4 30 degrees QTcB Int : 477 ms POOR TRACING WITH BASELINE ARTIFACT NSR WITH 1ST DEGREE AVB IN RBBB ABNORMAL Confirmed by Martinez Kramer ([id number]), desk editor JOSELIN SMART ([id number]) on 06/25/2024 12:22:41 PM Referred By: Confirmed By: Martinez Kramer
--- NOTE | 2024-06-23 10:51 | RAD_ITS ---
PROCEDURE: CHEST 1 VIEW (PORTABLE) 06/23/2024 REASON FOR EXAM: FEVER TECHNIQUE: Frontal view of the chest. COMPARISON: Chest x-ray of 03/10/2024. RAD/Chest 1 View (Portable) IMPRESSION: Partially visualized postsurgical changes of the spine again seen. No acute os seous changes noted. Lungs are somewhat hypoinflated, but appear clear of acute disease. No significant pulmonary edema is seen. A very small Right Pleural Effusion appears diminished since the prior study. Questionable Very Small Left Pleural Effusion. No pneumothorax is evident. The cardiomediastinal silhouette is stable, without evidence of cardiomegaly. Medial to the left glenohumeral joint is seen an intra-articular loose body. B ilateral glenohumeral joint degenerative changes are seen. No acute osseous change is evident. Reading Location: [place] [id number]
[2024-06-23 11:46] LABS: Absolute Lymphocyte Count 0.43 X10^3/uL (0.83-4.51); Absolute Neutrophil Count 14.8 X10^3/uL (2.0-7.7); Basophil# 0.03 X10^3/uL; Basophil% 0.2 % (0-1); Eosinophil# 0.48 X10^3/uL; Hematocrit 38.3 % (37-47); Hemoglobin 12.2 g/dL (12.0-15.0); Lymphocyte # 0.43 X10^3/ul (0.83-4.51); Lymphocyte % 2.6 % (19-41); Mean Corp Hgb Conc 31.9 g/dL (32-36); Mean Corpuscular Hgb 28.8 pg (27.0-32.0); Mean Corpuscular Volume 90.3 fL (81-99); Mean Platelet Vol. 11.8 fl (6.2-12.0); Monocyte# 0.47 X10^3/uL; Monocyte% 2.9 % (0-10); NRBC Flagged by Analyzer 0 % (0-5); Neutrophil # 14.76 X10^3/uL (2.7-7.7); Neutrophil % 90.9 % (47-70); POSITIVE DIFFERENTIAL YES; Platelet Count 149 K/mm3 (150-450); RBC Distribution Width CV 15.3 % (11.6-14.6); RBC Distribution Width SD 50.6 fl (35.1-43.9); Red Blood Count 4.24 M/mm3 (4.2-5.4); White Blood Count 16.2 K/mm3 (4.4-11.0)
--- NOTE | 2024-06-23 12:20 | EDS_ITS ---
HPI History of Present Illness Chief Complaint: Shortness of Breath Informant: patient and family Narrative Narrative: 78-year-old female brought to the emergency room for evaluation of fever. Patient has a history of having a significant the large abdominal pannus with significant weight. She was admitted in May with cellulitis of the pannus to [facility]. She was treated reportedly with ertapenem and discharged home on doxycycline. Family states that the redness of the pannus was significantly improved hemophilic ever fully resolved but was not to the extent that they noticed this morning when she also had fever and shaking. Annika ent states she does feel short of breath but it is more of her anxiety and the chills. She had's 1000 mg of acetaminophen at approximately 0900 hrs. She does have a history of frequent UTIs. I see in our computer system that she had a wound culture of the wound underneath her pannus for which she sees local wound care clinic on March 13 which grew out Pseudomonas, ESBL E. coli, Enterococcus, VRE, and coag negative staph. Family notes that because of her CHF and COPD she is very susceptible to volume overload. [facility] Medical History History of ESBL E. coli infection Multiple drug resistant organism (MDRO) culture positive ESBL (extended spectrum beta-lactamase) producing bacteria infection Chronic kidney disease Bacteremia due to Escherichia coli Morbid obesity CKD (chronic kidney disease), stage IV GERD (gastroesophageal reflux disease) History of venous thromboembolism Anxiety and depression Chronic anemia ROBBI treated with BiPAP UTI (urinary tract infection) Abdominal pannus Open abdominal wall wound Type 2 diabetes mellitus Chronic obstructive pulmonary disease with hypoxia Bilateral pulmonary embolism (07/2014) Postoperative atrial fibrillation (06/2014) Essential hypertension Multiple thyroid nodules Osteomyelitis of cervical spine Home Medications ?Medication ?Instructions ?Recorded ?Last Taken ?Type ergocalciferol (vitamin D2) 1,250 50,000 unit PO MAZA MAZA PPLEMENT 02/25/20 04/15/23 History mcg (50,000 unit) capsule fluoxetine 20 mg capsule 20 mg PO DAILY DEPRESSION 02/25/20 History rosuvastatin 5 mg tablet (Crestor) 5 mg PO QHS cholest donte 01/16/21 Unknown History pantoprazole 40 mg tablet,delayed 40 mg PO DAILY reflu x 03/12/21 Unknown History release amiodarone 200 mg tablet 200 mg PO DAILY heart rate # 0 tabs 02/26/23 04/15/23 Rx albuterol sulfate 90 mcg/actuation 2 inh inhalation .0 00 PRN 03/27/23 04/16/23 08:22 History breath activated powder inhaler shortness of breath ammonium lactate 12 % lotion (Skin 1 applic topical DA TALYA PRN dry skin 03/27/23 Unknown History Treatment) furosemide 40 mg tablet 20 mg PO DAILY PRN diuretic 03/27/23 04/15/23 History vitamin B complex and vitamin C 1 cap PO DAILY vitamin 03/27/23 Unknown History no.20-folic acid 1 mg capsule (Renal Caps) sennosides 8.6 mg-docusate sodium 2 tab PO BID PRN con stipation 06/25/23 Unknown History 50 mg tablet (Stool Softener-Stimulant Laxative) L.acidophil,salivari-Bifido 1 cap PO DAILY 01/28/24 Un known History bifidum-Strep thermoph 175 mg capsule apixaban 5 mg tablet (Eliquis) 5 mg PO BID 01/28/24 Un known History cranberry fruit concentrate 250 mg 250 mg PO DAILY 01/10 Unknown History chewable tablet (Azo Cranberry) fluticasone fur. 100 mcg-umeclid 1 ea inhalation DAILY 01/28/24 Unknown History 62.5 mcg-vilant 25 mcg inhalat.powder (Trelegy Ellipta) collagenase clostridium histo. 250 1 applic topical DA TALYA #15 grams 03/15/24 Unknown Rx unit/gram topical ointment (Santyl) methenamine hippurate 1 gram tablet 1 g PO BID #60 tab s 03/15/24 Unknown Rx Allergy/AdvReac Type Severity Reaction Status Date / Time piperacillin (From Zosyn) Allergy Mild Angioedema Verified 06/23/24 10:37 tazobactam (From Zosyn) Allergy Mild Angioedema Verified 06/23/24 10:37 aspartame Allergy EDEMA Verified 06/23/24 10:37 ibuprofen Allergy Shortness Verified 06/23/24 10:37 of breath oxycodone HCl (From Percocet) Allergy dizziness Verified 06/23/24 10:37 procaine (From Novocain) Allergy Other Verified 06/23/24 10:37 Family History Father Diabetes Mother CAD (coronary artery disease) Heart disease Hypertension Myocardial infarction Surgical History History of spinal fusion History of cholecystectomy History of Social History household members: family Smoking Status: Never smoker alcohol intake: never substance use type: does not use ROS ROS ED Constitutional Constitutional ED: Reports chills and fever(s); Denies weight loss Eyes Eyes: Denies change in vision or diplopia ENT ENT ED: Denies ear pain, rhinorrhea or sore throat Cardiovascular Cardiovascular: Denies chest pain, orthopnea, palpitations or racing heartbeat Respiratory/Chest Respiratory/Chest: Reports dyspnea; Denies cough or orthopnea Gastrointestinal Gastrointestinal: Denies abdominal pain, diarrhea, nausea or vomiting Genitourinary Genitourinary ED: Denies dysuria, hematuria or urinary frequency Musculoskeletal Musculoskeletal: Denies arthralgias or myalgias Integumentary Reports rash and other Details: Chronic wound in the midline deep underneath pannus ; Denies abscess Neurologic Neurologic: Denies headache(s) or weakness Psychiatric Psychiatric: Denies anxiety, depression, suicidal ideation or suicidal thoughts Endocrine Endocrinology: Denies polydipsia, polyphagia or polyuria Allergic/Immunologic Allergic/Immunologic ED: Denies mouth swelling, tongue swelling or urticaria EXAM Physical Exam Const Vital Signs: 06/23/24 10:37 06/23/24 10:39 06/23/24 11:37 Temperature 101.1 F H 101.1 F H 98.6 F Temperature Source Oral Oral Oral Pulse Rate 103 H 102 H Respiratory Rate 22 H 22 H Blood Pressure 158/70 H 158/70 H 145/67 H Blood Pressure Mean 99 99 93 Pulse Ox 99 98 95 Oxygen Delivery Method Nasal Cannula Nasal Cannula Nasal Cannula Oxygen Flow Rate (L/min) 2 2 2 06/23/24 11:45 06/23/24 12:46 06/23/24 12:50 Temperature 98.6 F 100.4 F H Temperature Source Oral Oral Pulse Rate 99 96 96 Respiratory Rate 20 H 20 H 19 H Blood Pressure 145/67 H 134/89 H 134/59 H Blood Pressure Mean 93 104 84 Pulse Ox 95 96 98 Oxygen Delivery Method Nasal Cannula Nasal Cannula Nasal Cannula Oxygen Flow Rate (L/min) 2 2 2 06/23/24 13:00 06/23/24 13:00 Temperature 100.4 F H Temperature Source Oral Pulse Rate 93 Respiratory Rate 22 H Blood Pressure 134/59 H 134/59 H Blood Pressure Mean 84 84 Pulse Ox 93 Oxygen Delivery Method Nasal Cannula Oxygen Flow Rate (L/min) 2 Positive well nourished and well developed General Appearance ED: well developed HEENT Reports normocephalic, head/scalp atraumatic and moist mucous membranes Eyes PERRL and EOMs intact bilaterally Neck no lymphadenopathy, supple and no JVD Resp clear to auscultation bilaterally Resp Narrative: Mild tachypnea Cardio regular rate and regular rhythm Rate: other Other Details: 3 out of 6 systolic murmur GI normal to inspection, nondistended, normoactive bowel sounds and non-tender Palpation: soft Back/Spine no CVA tenderness and normal ROM Extremity normal to inspection General Extremety ED: Negative for edema General Extremity: Negative for edema Neuro oriented x3 and CN's II-XII intact bilaterally Sensorium / Orientation: alert Motor Exam: strength 5/5 throughout Psych mental status grossly normal Mood & Affect: Negative for depressed or tearful Skin Skin Narrative: The patient has very large and heavy abdominal wall pannus. There is significant erythema extending above the umbilicus and into the flank region. Increased warmth. Located in the midline deep underneath the pannus is a quarter sized area of a chronic wound with friable tissue. There is mild venous bleeding noted. There is yeastlike skin changes on the right side of this wound extending in towards the inguinal region. Sepsis Attestation Sepsis Alert: Yes Sepsis Attestation: Sepsis Ruled Out Date exam was performed: 06/23/24 Time exam was performed: 13:00 Possible Source of Sepsis: Skin/soft tissue and Wound Sepsis Organ Dysfunction Criteria Present: None MDM MDM MDM Narrative Medical decision making narrative: Differential diagnosis includes cellulitis sepsis acute kidney injury pneumonia UTI electrolyte abnormalities dehydration Patient is currently utilizing 2 L nasal cannula which is chronic for her. Her temperature is down. I reviewed her chart. White count returns at 16.2. I spoke with infectious disease. Based on the patient's recent antibiotic use and prior cultures we are going to administer linezolid and meropenem. White count elevated 16.2 hemoglobin 12.2. INR 1.3 lactic acid normal at 1.5. Creatinine 1.3 troponin is 45. Urinalysis is nitrate positive leukocyte esterase positive waiting on microscopic. Normal transaminases. EKG shows probable sinus rhythm with first-degree AV block. Difficulty with baseline given the patient's shakiness. Wound culture was obtained from the chronic wound on the abdominal wall. Plan of care is admission to hospital History & Record Review Discussion w/independent historian: Patient and Family Additional record(s) reviewed:: Prior inpatient record, Prior outpatient record, Prior ED visit and Prior labs Lab Data Attestation: I reviewed the patient's lab results. Labs: Laboratory Results - last 24 hr 06/23/24 06/23/24 06/23/24 11:35 12:15 13:00 WBC 16.2 H RBC 4.24 Hgb 12.2 Hct 38.3 MCV 90.3 MCH 28.8 MCHC 31.9 L RDW Std Deviation 50.6 H RDW Coeff of Ruben 15.3 H Plt Count 149 L MPV 11.8 Immature Gran % (Auto) 0.400 Neut % (Auto) 90.9 H Lymph % (Auto) 2.6 L [place] % (Auto) 2.9 Eos % (Auto) 3.0 Baso % (Auto) 0.2 Absolute Neuts (auto) 14.8 H Absolute Lymphs (auto) 0.43 L Nucleated RBC % 0 PT 16.5 H INR 1.3 APTT 31.6 Sodium 144 Potassium 3.8 Chloride 107 Carbon Dioxide 26.4 Anion Gap 10 BUN 15 Creatinine 1.30 H Est GFR (MDRD) Non-Af 42 L BUN/Creatinine Ratio 11.7 Glucose 116 H Lactic Acid 1.5 Calcium 9.8 Total Bilirubin 0.86 Direct Bilirubin 0.42 H AST 19 ALT 19 Alkaline Phosphatase 95 Troponin T High Sens 45 H Total Protein 6.8 Albumin 3.8 Globulin 3.0 Urine Color Brown Urine Clarity Turbid Urine pH 7.0 Ur Specific [place] 1.010 Urine Protein 500 H Urine Glucose (UA) Normal Urine Ketones Negative Urine Occult Blood 250 H Urine Nitrite Positive H Urine Bilirubin 1 H Urine Urobilinogen 4 H Ur Leukocyte Esterase 500 H Radiography Diagnostic Testing: Clinical Impression(s) from Imaging Studies Chest X-Ray 06/23/24 10:51 IMPRESSION: Partially visualized postsurgical changes of the spine again seen. No acute osseous changes noted. Lungs are somewhat hypoinflated, but appear clear of acute disease. No significant pulmonary edema is seen. A very small Right Pleural Effusion appears diminished since the prior study. Questionable Very Small Left Pleural Effusion. No pneumothorax is evident. The cardiomediastinal silhouette is stable, without evidence of cardiomegaly. Medial to the left glenohumeral joint is seen an intra-articular loose body. Bilateral glenohumeral joint degenerative changes are seen. No acute osseous change is evident. Reading Location: [place] [address] EKG Initial EKG: Comments: Sinus rhythm with first-degree AV block ventricular rate of 99 bpm Management Discussion w/another healthcare provider: Hospitalist (Dr Dyer) and [employer] [facility] (Dr. Ma (infectious disease)) Discharge Plan Triage Chief Complaint: Shortness of Breath ED Provider: Clinton Cosme Dx/Rx/DC Orders Clinical Impression: Morbid obesity with BMI of 50.0-59.9, adult, Sepsis, Panniculitis Prescriptions: No Action pantoprazole 40 mg tablet,delayed release (DR/EC) 40 mg PO DAILY ergocalciferol (vitamin D2) 50,000 UNIT capsule 50,000 unit PO MAZA Patient Comments: take 1 capsule by mouth every week on sundays fluoxetine 20 MG capsule 20 mg PO DAILY Patient Comments: depression rosuvastatin [Crestor] 5 mg Tablet 5 mg PO QHS furosemide 40 mg tablet 20 mg PO DAILY PRN (Reason: diuretic) Renal Caps 1 mg capsule 1 cap PO DAILY albuterol sulfate 90 mcg/actuation aerosol powdr breath activated 2 inh inhalation .000 PRN (Reason: shortness of breath) ammonium lactate [Skin Treatment] 12 % lotion 1 applic topical DAILY PRN (Reason: dry skin) Patient Comments: APPLIES TO LEGS amiodarone 200 mg Tablet 200 mg PO DAILY Qty: 0 0RF sennosides-docusate sodium [Stool Softener-Stimulant Laxat] 8.6-50 mg Tablet 2 tab PO BID PRN (Reason: constipation) Rx Instructions: Available zweg-sll-dilkgpt. Eliquis 5 mg tablet 5 mg PO BID Trelegy Ellipta 100-62.5-25 mcg blister with device 1 ea INHALATION DAILY Azo Cranberry 250 mg tablet,chewable 250 mg PO DAILY L.acidoph,saliva-B.bif-S.therm 175 mg Capsule 1 cap PO DAILY Rx Instructions: At least till the patient finishes the antibiotic. Available OTC methenamine hippurate 1 gram tablet 1 g PO BID Qty: 60 2RF Rx Instructions: take with vitamin C Santyl 250 unit/gram Ointment 1 applic topical DAILY Qty: 15 0RF Protocol: *Topical Application Instructions APPLICATION INSTRUCTIONS: wound to abdominal fold Rx Instructions: affected area Primary Care Provider: Sandrine Mireles Referrals: Sandrine Mireles MD [Primary Care Provider] - Print Language: Citizen [place] Disposition Disposition: Home, Self Care
[2024-06-23 12:38] LABS: Anion Gap 10 (5-15); BUN 15 mg/dL (4-19); BUN/Creat Ratio 11.7 RATIO (10-20); Calcium,Total 9.8 mg/dL (7.6-11.0); Carbon Dioxide 26.4 mmol/L (21.0-32.0); Chloride 107 mmol/L (98-108); EST Glomerular Filtration Rate 42 (>60); Glucose 116 mg/dL (70-99); Potassium 3.8 mmol/L (3.3-5.1); Sodium Level 144 mmol/L (133-145); Troponin T High Sensitivity 45 ng/L (<=14)
[2024-06-23 12:38] LABS: International Normalized Ratio 1.3; Prothrombin Time (Protime)PT. 16.5 SECONDS (11.7-14.9)
[2024-06-23 12:39] LABS: Partial Thromboplast Time 31.6 Seconds (24.1-36.2)
[2024-06-23] MEDS: Acetaminophen 325 MG Tablet 650 MG PO ×3 (12:49→21:36)
[2024-06-23 13:09] LABS: AST(SGOT) 19 U/L (<=31); Alanine Aminotransfer ALT/SGPT 19 U/L (<=34); Albumin, Serum 3.8 g/dL (3.4-4.8); Alkaline Phosphatase 95 U/L (35-104); Bilirubin, Direct 0.42 mg/dL (0.00-0.30); Protein, Total 6.8 g/dL (5.9-8.4); Total Bilirubin 0.86 mg/dL (0.00-1.30)
[2024-06-23 13:09] LABS: Bacteria 0 SEEN /hpf (None Seen); Mucous, Urine 0 SEEN /hpf (<or=2+); Squamous Epithelial Cells - UA 0 SEEN /hpf (5-10)
[2024-06-23 13:10] LABS: Lactic Acid 1.5 mmol/L (0.0-2.0)
[2024-06-23] MEDS: Meropenem 1 GM in 0.9% Normal Saline (100mL MB+) 100 ML IV ×2 (13:10→23:00)
[2024-06-23 13:15] LABS: Color, Urine Brown (Yellow); Glucose, Dipstick Normal (Normal); Ketone-Dipstick Negative (Negative); Leukocyte Esterase-Dipstick 500 /ul (Negative); Nitrite-Dipstick Positive (Negative); Occult Blood-Urine 250 /ul (Negative); Protein-Dipstick 500 mg/dl (Negative); Urine Clarity Turbid (Clear); Urine Urobilinogen 4 mg/dl (Normal)
[2024-06-23 13:23] LABS: Urine Bilirubin Dipstick 1 mg/dL (Negative)
[2024-06-23] MEDS: Linezolid 600 MG 600 MG/300 ML BAG 200 MG IV ×2 (13:48→21:22)
[2024-06-23 14:00] LABS: Red Blood Cells-Urine > 100 SEEN /hpf (0-5); White Blood Cells 10-25 SEEN /hpf (0-5)
--- NOTE | 2024-06-23 14:23 | PCM.HP.STD ---
HPI - General General Date of Admission: 06/23/24 Date of Service: 06/23/24 Chief Complaint: Abdominal pannus cellulitis HPI Narrative CLAIRE PIRES, is a 78-year-old female history of CKD, ESBL, COPD, PEs, large abdominal pannus, A-fib, GERD, depression who presented to [facility] ED 06/23/2024 with shortness of breath and fever. She had been admitted to the [facility] due to cellulitis of the pannus in May and treated with ertapenem and discharged home on doxycycline, that redness significantly improved but never fully resolved. This morning they noted she had a fever and was shaking. She does feel little bit short of breath but she feels this is more anxiety. She had 1000 mg of acetaminophen this morning. In the ED temperature 101.1 with a heart rate of 103, blood pressure 158/70 with a respiratory rate of 22, pulse ox 99% on 2 L nasal cannula. White blood cell count 16.2 with a platelet count of 149. Chest x-ray no acute process. Creatinine 1.30 which appears to be baseline. Troponin of 45 and lactic acid 1.5. UA in ED was suggestive of UTI with positive nitrate and leuk esterase though reported out no bacteria. Patient's most recent wound culture from the local wound care clinic in February grew out Pseudomonas, ESBL E. coli, enteric coccus, VRE, and coag negative staph. Infectious disease contacted in the ED and given previous cultures it was recommended patient be started on linezolid and meropenem. Hospitalist contacted for admission. Patient evaluated at bedside. Daughter was on the phone during our conversation, they report history as above, patient had been in her usual health with some erythema around the spot under her pannus however today she woke up with the significant pannus cellulitis that was not present yesterday, now that she sitting in the ED she reports her breathing is better, has some shortness of breath on exertion but reports that is not new and is the same at home, no cough, no chest pain. [facility] Medical History History of ESBL E. coli infection Multiple drug resistant organism (MDRO) culture positive ESBL (extended spectrum beta-lactamase) producing bacteria infection Chronic kidney disease Bacteremia due to Escherichia coli Morbid obesity CKD (chronic kidney disease), stage IV GERD (gastroesophageal reflux disease) History of venous thromboembolism Anxiety and depression Chronic anemia ROBBI treated with BiPAP UTI (urinary tract infection) Abdominal pannus Open abdominal wall wound Type 2 diabetes mellitus Chronic obstructive pulmonary disease with hypoxia Bilateral pulmonary embolism (07/2014) Postoperative atrial fibrillation (06/2014) Essential hypertension Multiple thyroid nodules Osteomyelitis of cervical spine Home Medications ?Medication ?Instructions ?Recorded ?Last Taken ?Type ergocalciferol (vitamin D2) 1,250 50,000 unit PO MAZA SUPPLEMENT 02/25/20 06/20/24 History mcg (50,000 unit) capsule fluoxetine 20 mg capsule 20 mg PO DAILY DEPRESSION 02/25/20 06/23/24 History rosuvastatin 5 mg tablet (Crestor) 5 mg PO QHS cholesterol 01/16/21 06/22/24 History pantoprazole 40 mg tablet,delayed 40 mg PO DAILY reflux 03/12/21 06/23/24 History release amiodarone 200 mg tablet 200 mg PO DAILY heart rate #0 tabs 02/26/23 06/23/24 Rx albuterol sulfate 90 mcg/actuation 2 inh inhalation Q4H PRN shortness 03/27/23 04/16/23 08:22 History breath activated powder inhaler of breath furosemide 40 mg tablet 10 mg PO DAILY PRN diuretic 03/27/23 06/20/24 History vitamin B complex and vitamin C 1 cap PO DAILY vitamin 03/27/23 06/23/24 History no.20-folic acid 1 mg capsule (Renal Caps) sennosides 8.6 mg-docusate sodium 2 tab PO BID PRN constipation 06/25/23 Unknown History 50 mg tablet (Stool Softener-Stimulant Laxative) apixaban 5 mg tablet (Eliquis) 5 mg PO BID 01/28/24 06/23/24 History cranberry fruit concentrate 250 mg 250 mg PO DAILY 01/28/24 06/23/24 History chewable tablet (Azo Cranberry) fluticasone fur. 100 mcg-umeclid 1 ea inhalation DAILY 01/28/24 06/23/24 History 62.5 mcg-vilant 25 mcg inhalat.powder (Trelegy Ellipta) methenamine hippurate 1 gram tablet 1 g PO BID #60 tabs 03/15/24 06/23/24 Rx ascorbic acid (vitamin C) 500 mg 500 mg PO BID 06/23/24 06/23/24 History tablet (Vitamin C) Allergy/AdvReac Type Severity Reaction Status Date / Time piperacillin (From Zosyn) Allergy Mild Angioedema Verified 06/23/24 10:37 tazobactam (From Zosyn) Allergy Mild Angioedema Verified 06/23/24 10:37 aspartame Allergy EDEMA Verified 06/23/24 10:37 ibuprofen Allergy Shortness Verified 06/23/24 10:37 of breath oxycodone HCl (From Percocet) Allergy dizziness Verified 06/23/24 10:37 procaine (From Novocain) Allergy Other Verified 06/23/24 10:37 Family History Father Diabetes Mother CAD (coronary artery disease) Heart disease Hypertension Myocardial infarction Surgical History History of spinal fusion History of cholecystectomy History of Social History household members: family Smoking Status: Never smoker alcohol intake: never substance use type: does not use ROS ROS Narrative General: Fever that started today HENT: Denies headache, denies stuffy nose, denies sore throat EYES: Denies changes in vision Resp: Denies cough, has some chronic shortness of breath on exertion, felt a little short of breath earlier but this is resolved Cardiac: Denies chest pain GI: Denies abdominal pain, has some hard stool but no overt constipation, denies nausea/vomiting : Denies changes in urination, chronically has intermittent hematuria Extremity: Denies new swelling MSK: Denies focal weakness Neuro: Denies any numbness/tingling Heme: Denies any bleeding or bruising Skin: Erythema of her pannus Psychiatric: No complaints voiced Vital Signs Vital Signs Vital Signs: 06/23/24 10:37 06/23/24 10:39 06/23/24 10:51 Temperature 101.1 F H 101.1 F H Temperature Source Oral Oral Pulse Rate 103 H 102 H Respiratory Rate 22 H 22 H Respiratory Effort Blood Pressure 158/70 H 158/70 H Blood Pressure Mean 99 99 Pulse Ox 99 98 Oxygen Delivery Method Nasal Cannula Nasal Cannula Nasal Cannula Oxygen Flow Rate (L/min) 2 2 2 06/23/24 10:51 06/23/24 11:37 06/23/24 11:45 Temperature 98.6 F 98.6 F Temperature Source Oral Oral Pulse Rate 99 Respiratory Rate 95 H 20 H Respiratory Effort Blood Pressure 145/67 H 145/67 H Blood Pressure Mean 93 93 Pulse Ox 95 95 Oxygen Delivery Method Nasal Cannula Nasal Cannula Nasal Cannula Oxygen Flow Rate (L/min) 5 2 2 06/23/24 12:05 06/23/24 12:46 06/23/24 12:50 Temperature 100.4 F H Temperature Source Oral Pulse Rate 96 96 Respiratory Rate 20 H 19 H Respiratory Effort Blood Pressure 134/89 H 134/59 H Blood Pressure Mean 104 84 Pulse Ox 96 98 Oxygen Delivery Method Room Air Nasal Cannula Nasal Cannula Oxygen Flow Rate (L/min) 2 2 06/23/24 13:00 06/23/24 13:00 06/23/24 14:00 Temperature 100.4 F H 98.7 F Temperature Source Oral Oral Pulse Rate 93 88 Respiratory Rate 22 H 15 Respiratory Effort Blood Pressure 134/59 H 134/59 H 114/45 L Blood Pressure Mean 84 84 68 Pulse Ox 93 92 Oxygen Delivery Method Nasal Cannula Nasal Cannula Oxygen Flow Rate (L/min) 2 2 06/23/24 14:00 06/23/24 14:12 06/23/24 14:18 Temperature 98.7 F Temperature Source Pulse Rate 88 Respiratory Rate 15 Respiratory Effort Short of Breath Blood Pressure 114/45 L 114/45 L Blood Pressure Mean 68 68 Pulse Ox 92 Oxygen Delivery Method Nasal Cannula Oxygen Flow Rate (L/min) 2 Weight Weight: 135.2 kg Body Mass Index (BMI) 46.6 Physical Exam Narrative General: Alert, oriented, no apparent distress HEENT: Atraumatic, normocephalic Eyes: Anicteric, normal conjunctiva, extraocular movements grossly intact Neck: Supple Respiratory: Diminished bilaterally, normal respiratory effort Cardiovascular: Regular rate and rhythm, does have systolic ejection murmur GI: Soft, does not appear to have any actual abdominal tenderness but does have erythema and warmth of pannus Extremities: No pitting edema Musculoskeletal: Moving all extremities Neuro: No overt focal neurological deficits Skin: Erythema and warmth covering majority of pannus up to mid abdominal wall Psych: Cooperative Results Lab / Micro Data 06/23/24 11:35 06/23/24 11:35 Labs: Laboratory Results - last 24 hr 06/23/24 11:35: WBC 16.2 H, RBC 4.24, Hgb 12.2, Hct 38.3, MCV 90.3, MCH 28.8, MCHC 31.9 L, RDW Std Deviation 50.6 H, RDW Coeff of Ruben 15.3 H, Plt Count 149 L, MPV 11.8, Immature Gran % (Auto) 0.400, Neut % (Auto) 90.9 H, Lymph % (Auto) 2.6 L, [place] % (Auto) 2.9, Eos % (Auto) 3.0, Baso % (Auto) 0.2, Absolute Neuts (auto) 14.8 H, Absolute Lymphs (auto) 0.43 L, Nucleated RBC % 0, Sodium 144, Potassium 3.8, Chloride 107, Carbon Dioxide 26.4, Anion Gap 10, BUN 15, Creatinine 1.30 H, Est GFR (MDRD) Non-Af 42 L, BUN/Creatinine Ratio 11.7, Glucose 116 H, Calcium 9.8, Troponin T High Sens 45 H 06/23/24 12:15: PT 16.5 H, INR 1.3, APTT 31.6, Lactic Acid 1.5, Total Bilirubin 0.86, Direct Bilirubin 0.42 H, AST 19, ALT 19, Alkaline Phosphatase 95, Total Protein 6.8, Albumin 3.8, Globulin 3.0 06/23/24 13:00: Urine Color Brown, Urine Clarity Turbid, Urine pH 7.0, Ur Specific [place] 1.010, Urine Protein 500 H, Urine Glucose (UA) Normal, Urine Ketones Negative, Urine Occult Blood 250 H, Urine Nitrite Positive H, Urine Bilirubin 1 H, Urine Urobilinogen 4 H, Ur Leukocyte Esterase 500 H, Urine RBC > 100 SEEN, Urine WBC 10-25 SEEN, Ur Squamous Epith Cells 0 SEEN, Urine Bacteria 0 SEEN, Urine Mucus 0 SEEN Micro: Microbiology 06/23/24 12:27 Mucosa - Nose SARS-CoV-2, Influenza & RSV (PCR) - Final Imaging Radiology Impression Chest X-Ray 06/23/24 10:51 IMPRESSION: Partially visualized postsurgical changes of the spine again seen. No acute osseous changes noted. Lungs are somewhat hypoinflated, but appear clear of acute disease. No significant pulmonary edema is seen. A very small Right Pleural Effusion appears diminished since the prior study. Questionable Very Small Left Pleural Effusion. No pneumothorax is evident. The cardiomediastinal silhouette is stable, without evidence of cardiomegaly. Medial to the left glenohumeral joint is seen an intra-articular loose body. Bilateral glenohumeral joint degenerative changes are seen. No acute osseous change is evident. Reading Location: [facility] Assessment & Plan Assessment/Plan (1) Panniculitis: PLAN: Plan # Recurrent abdominal pannus cellulitis - Previously polymicrobial cultures - Started on linezolid and meropenem per ID recommendations - ID consult - Continue antibiotics as above pending wound culture - Blood cultures obtained in the ED -Wound nurse consult # Abnormal UA - Concern for urinary tract infection given abnormal UA with nitrite and leuk esterase however read out as no bacteria - Urine culture sent - Patient already on antibiotics as above - Continue methenamine # Known staghorn colliculi -Reportedly patient is following up at the [facility] for monitoring of this, does cause intermittent hematuria so patient and family were unaware if she had any changes in urination given this is a chronic ongoing problem #Elevated troponin - Initial troponin of 45, suspect this is due to underlying infection, will trend -EKG with heart rate of 99 - Patient denies any chest pain # History of moderate aortic stenosis - Could be heard on auscultation - Echocardiogram 02/22/2023 did show moderate aortic stenosis at that time - Outpatient follow-up #Paroxysmal Atrial Fibrillation -Rate control: Amiodarone -Anticoagulation: Eliquis # History of PE -Continue patient's home Eliquis # CKD stage III b -Appears to be at baseline -Avoid nephrotoxic agents -Daily BMPs #Hx COPD -Continue home inhalers -Incentive spirometer #GERD -Continue PPI #Depression/anxiety - Holding fluoxetine as patient is being started on linezolid #Morbid obesity -BMI documented as 46.7 kg/m? at time of admission -Complicates treatment, prognosis, outcomes -Recommend weight loss and lifestyle changes #DVT ppx: Not indicated given patient is chronically on Eliquis Jenna Dyer MD Charges/Coding Visit Charges Inpatient E&M: 54437 Init Hosp L2
[2024-06-23 14:38] LABS: Troponin T High Sens 2 HR 48 ng/L (<=14)
[2024-06-23 17:29] LABS: Troponin T High Sens 4 HR 48 ng/L (<=14)
[2024-06-23] MEDS: Senna/Docusate Sodium 1 Tablet 2 TABLET PO (21:25)
[2024-06-23] MEDS: Ascorbic Acid 500 MG Tablet PO (21:25)
[2024-06-23] MEDS: Methenamine Hippurate 1 GM Tablet PO (21:26)
[2024-06-23] MEDS: APIXABAN 5 MG TABLET PO (21:26)
[2024-06-23] MEDS: Atorvastatin Calcium 10 MG Tablet PO (21:36)
[2024-06-24] VITALS (9 sets, daily range): BP systolic 96–110; BP diastolic 45–56; PULSE 63–71; RESP 17–18; TEMP 36.1–37.2; O2SAT 97–99; BMI 46.0
--- NOTE | 2024-06-24 01:55 | CPS ---
Patient wearing her Home BIPAP with 2L oxygen bleed in QHS
[2024-06-24] MEDS: Acetaminophen 325 MG Tablet 650 MG PO (04:51)
[2024-06-24] MEDS: 0.9% Saline Lock 10 ML Syringe IV ×2 (05:23→11:43)
[2024-06-24] MEDS: Meropenem 1 GM in 0.9% Normal Saline (100mL MB+) 100 ML IV ×3 (05:23→23:13)
[2024-06-24 07:07] LABS: Absolute Lymphocyte Count 0.85 X10^3/uL (0.83-4.51); Absolute Neutrophil Count 13.2 X10^3/uL (2.0-7.7); Basophil# 0.05 X10^3/uL; Basophil% 0.3 % (0-1); Eosinophil# 0.29 X10^3/uL; Eosinophils% 1.9 % (0-5); Hematocrit 32.3 % (37-47); Hemoglobin 10.3 g/dL (12.0-15.0); Lymphocyte # 0.85 X10^3/ul (0.83-4.51); Lymphocyte % 5.5 % (19-41); Mean Corp Hgb Conc 31.9 g/dL (32-36); Mean Corpuscular Hgb 28.9 pg (27.0-32.0); Mean Corpuscular Volume 90.7 fL (81-99); Mean Platelet Vol. 12.3 fl (6.2-12.0); Monocyte# 0.82 X10^3/uL; Monocyte% 5.4 % (0-10); NRBC Flagged by Analyzer 0 % (0-5); Neutrophil % 86.2 % (47-70); Platelet Count 136 K/mm3 (150-450); RBC Distribution Width CV 15.3 % (11.6-14.6); RBC Distribution Width SD 50.6 fl (35.1-43.9); Red Blood Count 3.56 M/mm3 (4.2-5.4); White Blood Count 15.3 K/mm3 (4.4-11.0)
[2024-06-24 07:45] LABS: Anion Gap 8 (5-15); BUN 19 mg/dL (4-19); BUN/Creat Ratio 12.5 RATIO (10-20); Calcium,Total 9.3 mg/dL (7.6-11.0); Carbon Dioxide 27.2 mmol/L (21.0-32.0); Chloride 106 mmol/L (98-108); Creatinine, Serum 1.52 mg/dL (0.70-1.20); EST Glomerular Filtration Rate 35 (>60); Estimated Creatinine Clearance 44.16 ml/min (50-250); Glucose 100 mg/dL (70-99); Potassium 3.7 mmol/L (3.3-5.1); Sodium Level 141 mmol/L (133-145)
--- NOTE | 2024-06-24 09:26 | PCM.PN.HOSP ---
Reason for Visit Reason for Visit: Diagnoses Panniculitis, unspecified (06/23/24) Objective Data Objective Data Vital Signs: Vital Signs Temp Pulse Resp BP Pulse Ox O2 Del Method O2 Flow Rate 99.0 F 64 18 105/48 L 97 Nasal Cannula 2 06/24/24 03:20 06/24/24 07:00 06/24/24 03:20 06/24/24 03:20 06/24/24 03:20 06/24/24 03:20 06/24/24 03:20 Oxygen Flow Rate (L/min) 2 Oxygen Delivery Method Nasal Cannula Weight: 293 lb 10.491 oz Body Mass Index (BMI) 46.0 Intake & Output: Intake and Output for Last 24 Hours 06/22/24 06/23/24 06/24/24 23:59 23:59 23:59 Intake Total 840 / 840 120 / 120 Balance 840 / 840 120 / 120 Lab / Micro Data 06/24/24 06:35 06/24/24 06:35 Labs: Laboratory Results - last 24 hr 06/23/24 11:35: WBC 16.2 H, RBC 4.24, Hgb 12.2, Hct 38.3, MCV 90.3, MCH 28.8, MCHC 31.9 L, RDW Std Deviation 50.6 H, RDW Coeff of Ruben 15.3 H, Plt Count 149 L, MPV 11.8, Immature Gran % (Auto) 0.400, Neut % (Auto) 90.9 H, Lymph % (Auto) 2.6 L, [place] % (Auto) 2.9, Eos % (Auto) 3.0, Baso % (Auto) 0.2, Absolute Neuts (auto) 14.8 H, Absolute Lymphs (auto) 0.43 L, Nucleated RBC % 0, Sodium 144, Potassium 3.8, Chloride 107, Carbon Dioxide 26.4, Anion Gap 10, BUN 15, Creatinine 1.30 H, Est GFR (MDRD) Non-Af 42 L, BUN/Creatinine Ratio 11.7, Glucose 116 H, Calcium 9.8, Troponin T High Sens 45 H 06/23/24 12:15: PT 16.5 H, INR 1.3, APTT 31.6, Lactic Acid 1.5, Total Bilirubin 0.86, Direct Bilirubin 0.42 H, AST 19, ALT 19, Alkaline Phosphatase 95, Total Protein 6.8, Albumin 3.8, Globulin 3.0 06/23/24 13:00: Urine Color Brown, Urine Clarity Turbid, Urine pH 7.0, Ur Specific [place] 1.010, Urine Protein 500 H, Urine Glucose (UA) Normal, Urine Ketones Negative, Urine Occult Blood 250 H, Urine Nitrite Positive H, Urine Bilirubin 1 H, Urine Urobilinogen 4 H, Ur Leukocyte Esterase 500 H, Urine RBC > 100 SEEN, Urine WBC 10-25 SEEN, Ur Squamous Epith Cells 0 SEEN, Urine Bacteria 0 SEEN, Urine Mucus 0 SEEN 06/23/24 14:00: Troponin T Hi Sens 2 Hr 48 H 06/23/24 16:35: Troponin T Hi Sens 4Hr 48 H 06/24/24 06:35: WBC 15.3 H, RBC 3.56 L, Hgb 10.3 L, Hct 32.3 L, MCV 90.7, MCH 28.9, MCHC 31.9 L, RDW Std Deviation 50.6 H, RDW Coeff of Ruben 15.3 H, Plt Count 136 L, MPV 12.3 H, Immature Gran % (Auto) 0.700, Neut % (Auto) 86.2 H, Lymph % (Auto) 5.5 L, [place] % (Auto) 5.4, Eos % (Auto) 1.9, Baso % (Auto) 0.3, Absolute Neuts (auto) 13.2 H, Absolute Lymphs (auto) 0.85, Nucleated RBC % 0, Sodium 141, Potassium 3.7, Chloride 106, Carbon Dioxide 27.2, Anion Gap 8, BUN 19, Creatinine 1.52 H, Estim Creat Clear Calc 44.16 L, Est GFR (MDRD) Non-Af 35 L, BUN/Creatinine Ratio 12.5, Glucose 100 H, Calcium 9.3 Micro: Microbiology 06/23/24 12:27 Mucosa - Nose SARS-CoV-2, Influenza & RSV (PCR) - Final Radiography Diagnostic Testing: Radiology Impression Chest X-Ray 06/23/24 10:51 IMPRESSION: Partially visualized postsurgical changes of the spine again seen. No acute osseous changes noted. Lungs are somewhat hypoinflated, but appear clear of acute disease. No significant pulmonary edema is seen. A very small Right Pleural Effusion appears diminished since the prior study. Questionable Very Small Left Pleural Effusion. No pneumothorax is evident. The cardiomediastinal silhouette is stable, without evidence of cardiomegaly. Medial to the left glenohumeral joint is seen an intra-articular loose body. Bilateral glenohumeral joint degenerative changes are seen. No acute osseous change is evident. Reading Location: [place] [address] Physical Exam Narrative Patient admitted to the abdominal wall pannus subcutaneous cellulitis and fever Seen and examined. General: Alert, Oriented x3, Cooperative. Morbid obesity BMI 46.0 kg/m? HEENT: Atraumatic, PERRLA, EOMI, Normocephalic. Oral: No Gingival or Mucosal Lesions/ Ulcerations Neck: Supple, No JVD, Negative Carotid Bruits Chest wall/Lungs: Air entry diminished in bilateral lung bases. No crepitation/rhonchi Cardiovascular: Regular rate and rhythm, Normal S1,S2, No M/G/R Abdomen: Abdominal big pannus. Bowel Sounds Present, Soft, Non Tender, Non-Distended : No dysuria. No renal angle tenderness. No suprapubic tenderness. Extremities: No edema, Capillary Refill Less than 3 Seconds Skin: Wound reviewed. Has a small ulcer over the undersurface of big pannus. Tenderness, redness and induration of subcutaneous fat of mid to lower abdomen Musculoskeletal: No Tenderness to Palpation of Joints or Extremities Neurological: Cranial nerves II-XII grossly intact, DTR 2+/4. No acute focal neurological deficit. Psych/Mental Status: Normal Affect, Appropriate. Assessment & Plan Assessment/Plan (1) Panniculitis: PLAN: Plan 78-year-old female admitted with increased redness of the abdominal pannus with fever chills and increased shortness of breath. On 2 L of oxygen at baseline. # Recurrent abdominal pannus cellulitis: In [facility] when she was admitted in May was treated with ertapenem and was discharged home on doxycycline. Recent wound culture in wound care clinic on September 10 grew Pseudomonas, ESBL E. coli, Enterococcus and VRE in coagulase-negative staph. ID consult reviewed. Prior history of VRE and ESBL. Has leukocytosis. - Started on linezolid and meropenem per ID recommendations - Discussed with the wound RN. Wound photos reviewed. Small ulcer undersurface of abdominal pannus. # Abnormal UA - Concern for urinary tract infection given abnormal UA with nitrite and leuk esterase however read out as no bacteria: As per the patient's he never had complaints of lower urinary tract symptoms during UTI like increased frequency urgency or burning micturition. Urine culture shows preliminary/presumptive E. coli more than 100,000 colonies. History of frequent and recurrent UTIs - Patient already on antibiotics as above - Continue methenamine # Known staghorn colliculi -Reportedly patient is following up at the [facility] for monitoring of this, does cause intermittent hematuria so patient and family were unaware if she had any changes in urination given this is a chronic ongoing problem #Elevated troponin - Initial troponin of 45, suspect this is due to underlying infection, will trend -EKG with heart rate of 99 - Patient denies any chest pain # History of moderate aortic stenosis - Could be heard on auscultation - Echocardiogram 02/22/2023 did show moderate aortic stenosis at that time - Outpatient follow-up #Paroxysmal Atrial Fibrillation -Rate control: Amiodarone -Anticoagulation: Eliquis # History of PE -Continue patient's home Eliquis # CKD stage III b -Appears to be at baseline -Avoid nephrotoxic agents -Daily BMPs #Hx COPD -Continue home inhalers -Incentive spirometer #GERD -Continue PPI #Depression/anxiety - Holding fluoxetine as patient is being started on linezolid #Morbid obesity -BMI documented as 46.7 kg/m? at time of admission -Complicates treatment, prognosis, outcomes -Recommend weight loss and lifestyle changes #DVT ppx: Not indicated given patient is chronically on Eliquis Microbiology Past 72 Hours 06/23/24 13:00 Urine, Clean Catch Urine Culture - Preliminary Presumptive E. coli 06/23/24 12:27 Mucosa - Nose SARS-CoV-2, Influenza & RSV (PCR) - Final Laboratory Results 06/23/24 13:00: Urine Color Brown, Urine Clarity Turbid, Urine pH 7.0, Ur Specific [place] 1.010, Urine Protein 500 H, Urine Glucose (UA) Normal, Urine Ketones Negative, Urine Occult Blood 250 H, Urine Nitrite Positive H, Urine Bilirubin 1 H, Urine Urobilinogen 4 H, Ur Leukocyte Esterase 500 H, Urine RBC > 100 SEEN, Urine WBC 10-25 SEEN, Ur Squamous Epith Cells 0 SEEN, Urine Bacteria 0 SEEN, Urine Mucus 0 SEEN 06/23/24 16:35: Troponin T Hi Sens 4Hr 48 H 06/24/24 06:35: WBC 15.3 H, RBC 3.56 L, Hgb 10.3 L, Hct 32.3 L, MCV 90.7, MCH 28.9, MCHC 31.9 L, RDW Std Deviation 50.6 H, RDW Coeff of Ruben 15.3 H, Plt Count 136 L, MPV 12.3 H, Immature Gran % (Auto) 0.700, Neut % (Auto) 86.2 H, Lymph % (Auto) 5.5 L, [place] % (Auto) 5.4, Eos % (Auto) 1.9, Baso % (Auto) 0.3, Absolute Neuts (auto) 13.2 H, Absolute Lymphs (auto) 0.85, Nucleated RBC % 0, Sodium 141, Potassium 3.7, Chloride 106, Carbon Dioxide 27.2, Anion Gap 8, BUN 19, Creatinine 1.52 H, Estim Creat Clear Calc 44.16 L, Est GFR (MDRD) Non-Af 35 L, BUN/Creatinine Ratio 12.5, Glucose 100 H, Calcium 9.3 Charges/Coding Visit Charges Inpatient E&M: 61150 Subs Hosp L2
[2024-06-24] MEDS: 0.9% Normal Saline (250mL Bag) 250 ML 15 ML IV (09:31)
[2024-06-24] MEDS: Linezolid 600 MG 600 MG/300 ML BAG 200 MG IV ×2 (09:31→21:14)
[2024-06-24] MEDS: Pantoprazole Sodium 40 MG Tablet PO (09:33)
[2024-06-24] MEDS: APIXABAN 5 MG TABLET PO ×2 (09:33→21:10)
[2024-06-24] MEDS: Ascorbic Acid 500 MG Tablet PO ×2 (09:34→21:10)
[2024-06-24] MEDS: Amiodarone 200 MG Tablet PO (09:34)
[2024-06-24] MEDS: Methenamine Hippurate 1 GM Tablet PO ×2 (09:34→21:10)
--- NOTE | 2024-06-24 09:52 | CASEMGMT ---
STUART BRAVO Face to Face with patient for initial transition planning/care coordination assessment. STUART BRAVO introduced self and role at [facility]. Patient sitting up in chair, alert and oriented, daughter on phone with pt and, pt wanted to put daughter on speaker during assessment and she helped provide additional information. Patient willing to participate in assessment and is able to answer all questions appropriately. Care providers, pharmacy, and demographics verified. PCP: Aline Specialists: Douglas, business dean; Wound Center; [facility], does not recall name. Preferred Pharmacy: [facility] Insurance: [facility], [facility] supplement Prescription Benefit: yes Living Will/HPOA: yes, daughter Neema Bradley LNOK: daughter Living Arrangements: Patient lives with daughter in a 2 story home with bed and bath on first floor. Patient has ramp to enter the home. Patient states she is independent at home. Transportation: self, daughter DME/HHC: Shower chair, raised toilet, walker, cane, rollator, wheelchair, bipap, lift chair, scooter, grab bars, pulse ox, and home oxygen through [facility] with POC, CM to call [facility] and verify oxygen. SNF/HHC: Hx at [facility], [facility] in [place]. Patient wishes to discharge home, denies need for home health at this time. Patient states he has no further needs or concerns at this time. CM to follow for discharge planning needs that may arise. Disposition Plan: Follow therapy for recommendations for safe DC plan. STUART Grijalva CM
--- NOTE | 2024-06-24 11:06 | PCM.CONS.GEN ---
Assessment & Plan Assessment/Plan (1) Panniculitis: PLAN: Prior h/o VRE and ESBL. On linezolid and nguyễn for now, feeling better. Will follow, thank you HPI Consult Data Date of Consult: 06/24/24 HPI Narrative Reason for Consultation: panniculitis HPI Narrative: CLAIRE PIRES, is a 78 F with CKD, COPD, recurrent panniculitis. Recently admitted to [facility] with panniculitis, sent home on po doxy, finished about 12 days ago. Yesterday, rapid onset of fatigue, lower abd pain/redness/induration, chills, dyspnea. Came to ED, admitted on linezolid and meropenem. Feeling better. Has wound, but overall this has been improving, no drainage, not involved in current redness. Full ROS performed and neg except as noted above. [facility] Medical History History of ESBL E. coli infection Multiple drug resistant organism (MDRO) culture positive ESBL (extended spectrum beta-lactamase) producing bacteria infection Chronic kidney disease Bacteremia due to Escherichia coli Morbid obesity CKD (chronic kidney disease), stage IV GERD (gastroesophageal reflux disease) History of venous thromboembolism Anxiety and depression Chronic anemia ROBBI treated with BiPAP UTI (urinary tract infection) Abdominal pannus Open abdominal wall wound Type 2 diabetes mellitus Chronic obstructive pulmonary disease with hypoxia Bilateral pulmonary embolism (07/2014) Postoperative atrial fibrillation (06/2014) Essential hypertension Multiple thyroid nodules Osteomyelitis of cervical spine Home Medications ?Medication ?Instructions ?Recorded ?Last Taken ?Type ergocalciferol (vitamin D2) 1,250 50,000 unit PO MAZA SUPPLEMENT 02/25/20 06/20/24 History mcg (50,000 unit) capsule fluoxetine 20 mg capsule 20 mg PO DAILY DEPRESSION 02/25/20 06/23/24 History rosuvastatin 5 mg tablet (Crestor) 5 mg PO QHS cholesterol 01/16/21 06/22/24 History pantoprazole 40 mg tablet,delayed 40 mg PO DAILY reflux 03/12/21 06/23/24 History release amiodarone 200 mg tablet 200 mg PO DAILY heart rate #0 tabs 02/26/23 06/23/24 Rx albuterol sulfate 90 mcg/actuation 2 inh inhalation Q4H PRN shortness 03/27/23 04/16/23 08:22 History breath activated powder inhaler of breath furosemide 40 mg tablet 10 mg PO DAILY PRN diuretic 03/27/23 06/20/24 History vitamin B complex and vitamin C 1 cap PO DAILY vitamin 03/27/23 06/23/24 History no.20-folic acid 1 mg capsule (Renal Caps) sennosides 8.6 mg-docusate sodium 2 tab PO BID PRN constipation 06/25/23 Unknown History 50 mg tablet (Stool Softener-Stimulant Laxative) apixaban 5 mg tablet (Eliquis) 5 mg PO BID 01/28/24 06/23/24 History cranberry fruit concentrate 250 mg 250 mg PO DAILY 01/28/24 06/23/24 History chewable tablet (Azo Cranberry) fluticasone fur. 100 mcg-umeclid 1 ea inhalation DAILY 01/28/24 06/23/24 History 62.5 mcg-vilant 25 mcg inhalat.powder (Trelegy Ellipta) methenamine hippurate 1 gram tablet 1 g PO BID #60 tabs 03/15/24 06/23/24 Rx ascorbic acid (vitamin C) 500 mg 500 mg PO BID 06/23/24 06/23/24 History tablet (Vitamin C) Allergy/AdvReac Type Severity Reaction Status Date / Time piperacillin (From Zosyn) Allergy Mild Angioedema Verified 06/23/24 10:37 tazobactam (From Zosyn) Allergy Mild Angioedema Verified 06/23/24 10:37 aspartame Allergy EDEMA Verified 06/23/24 10:37 ibuprofen Allergy Shortness Verified 06/23/24 10:37 of breath oxycodone HCl (From Percocet) Allergy dizziness Verified 06/23/24 10:37 procaine (From Novocain) Allergy Other Verified 06/23/24 10:37 Family History Father Diabetes Asthma Mother CAD (coronary artery disease) Heart disease Myocardial infarction Hypertension Surgical History History of spinal fusion History of cholecystectomy History of Social History household members: family Smoking Status: Never smoker alcohol intake: never substance use type: does not use Physical Exam Const alert, oriented x3 and no apparent distress General Appearance: cooperative HEENT normocephalic and head/scalp atraumatic Eyes PERRL and EOMs intact bilaterally Neck supple and No nodes Resp normal air movement and clear to auscultation bilaterally Cardio regular rate and regular rhythm GI GI Narrative: lower abd pannus with redness, induration, warmth, tenderness Extremity General Extremity: Negative for edema Skin Skin Narrative: no other rash Neuro CN's II-XII intact bilaterally Lab / Micro Data Attestation: I reviewed the patient's lab results. 06/24/24 06:35 06/24/24 06:35 Labs: Laboratory Results - last 24 hr 06/23/24 11:35: WBC 16.2 H, RBC 4.24, Hgb 12.2, Hct 38.3, MCV 90.3, MCH 28.8, MCHC 31.9 L, RDW Std Deviation 50.6 H, RDW Coeff of Ruben 15.3 H, Plt Count 149 L, MPV 11.8, Immature Gran % (Auto) 0.400, Neut % (Auto) 90.9 H, Lymph % (Auto) 2.6 L, [place] % (Auto) 2.9, Eos % (Auto) 3.0, Baso % (Auto) 0.2, Absolute Neuts (auto) 14.8 H, Absolute Lymphs (auto) 0.43 L, Nucleated RBC % 0, Sodium 144, Potassium 3.8, Chloride 107, Carbon Dioxide 26.4, Anion Gap 10, BUN 15, Creatinine 1.30 H, Est GFR (MDRD) Non-Af 42 L, BUN/Creatinine Ratio 11.7, Glucose 116 H, Calcium 9.8, Troponin T High Sens 45 H 06/23/24 12:15: PT 16.5 H, INR 1.3, APTT 31.6, Lactic Acid 1.5, Total Bilirubin 0.86, Direct Bilirubin 0.42 H, AST 19, ALT 19, Alkaline Phosphatase 95, Total Protein 6.8, Albumin 3.8, Globulin 3.0 06/23/24 13:00: Urine Color Brown, Urine Clarity Turbid, Urine pH 7.0, Ur Specific [place] 1.010, Urine Protein 500 H, Urine Glucose (UA) Normal, Urine Ketones Negative, Urine Occult Blood 250 H, Urine Nitrite Positive H, Urine Bilirubin 1 H, Urine Urobilinogen 4 H, Ur Leukocyte Esterase 500 H, Urine RBC > 100 SEEN, Urine WBC 10-25 SEEN, Ur Squamous Epith Cells 0 SEEN, Urine Bacteria 0 SEEN, Urine Mucus 0 SEEN 06/23/24 14:00: Troponin T Hi Sens 2 Hr 48 H 06/23/24 16:35: Troponin T Hi Sens 4Hr 48 H 06/24/24 06:35: WBC 15.3 H, RBC 3.56 L, Hgb 10.3 L, Hct 32.3 L, MCV 90.7, MCH 28.9, MCHC 31.9 L, RDW Std Deviation 50.6 H, RDW Coeff of Ruben 15.3 H, Plt Count 136 L, MPV 12.3 H, Immature Gran % (Auto) 0.700, Neut % (Auto) 86.2 H, Lymph % (Auto) 5.5 L, [place] % (Auto) 5.4, Eos % (Auto) 1.9, Baso % (Auto) 0.3, Absolute Neuts (auto) 13.2 H, Absolute Lymphs (auto) 0.85, Nucleated RBC % 0, Sodium 141, Potassium 3.7, Chloride 106, Carbon Dioxide 27.2, Anion Gap 8, BUN 19, Creatinine 1.52 H, Estim Creat Clear Calc 44.16 L, Est GFR (MDRD) Non-Af 35 L, BUN/Creatinine Ratio 12.5, Glucose 100 H, Calcium 9.3 Micro: Microbiology 06/23/24 12:27 Mucosa - Nose SARS-CoV-2, Influenza & RSV (PCR) - Final Imaging Radiology Impression Chest X-Ray 06/23/24 10:51 IMPRESSION: Partially visualized postsurgical changes of the spine again seen. No acute osseous changes noted. Lungs are somewhat hypoinflated, but appear clear of acute disease. No significant pulmonary edema is seen. A very small Right Pleural Effusion appears diminished since the prior study. Questionable Very Small Left Pleural Effusion. No pneumothorax is evident. The cardiomediastinal silhouette is stable, without evidence of cardiomegaly. Medial to the left glenohumeral joint is seen an intra-articular loose body. Bilateral glenohumeral joint degenerative changes are seen. No acute osseous change is evident. Reading Location: [place] [id number]
--- NOTE | 2024-06-24 11:30 | CASEMGMT ---
STUART BRAVO Called [facility] for O2 verification [facility] at rest and 3L with exertion.
--- NOTE | 2024-06-24 11:41 | WOUNDNOTE ---
wound photo: under pannus
--- NOTE | 2024-06-24 11:42 | WOUNDNOTE ---
skin photo: pannus
[2024-06-24] MEDS: Ipratropium/Albuterol Sulfate 3 ML AMPUL.NEB INHALATION (21:04)
[2024-06-24] MEDS: Budesonide Respules 0.5 MG/2 ML AMPUL.NEB. INHALATION (21:04)
[2024-06-24] MEDS: Atorvastatin Calcium 10 MG Tablet PO (21:10)
[2024-06-25] VITALS (10 sets, daily range): BP systolic 116–131; BP diastolic 45–55; PULSE 60–68; RESP 16–18; TEMP 36.3–36.6; O2SAT 97–99; BMI 45.9
[2024-06-25] MEDS: Meropenem 1 GM in 0.9% Normal Saline (100mL MB+) 100 ML IV ×2 (05:45→23:35)
[2024-06-25] MEDS: Budesonide Respules 0.5 MG/2 ML AMPUL.NEB. INHALATION ×2 (06:58→19:17)
[2024-06-25] MEDS: Ipratropium/Albuterol Sulfate 3 ML AMPUL.NEB INHALATION ×3 (06:58→19:17)
[2024-06-25] MEDS: Pantoprazole Sodium 40 MG Tablet PO (09:01)
[2024-06-25] MEDS: Ascorbic Acid 500 MG Tablet PO ×2 (09:01→21:54)
[2024-06-25] MEDS: Amiodarone 200 MG Tablet PO (09:01)
[2024-06-25] MEDS: Methenamine Hippurate 1 GM Tablet PO ×2 (09:01→21:55)
[2024-06-25] MEDS: APIXABAN 5 MG TABLET PO ×2 (09:02→21:55)
[2024-06-25] MEDS: Linezolid 600 MG 600 MG/300 ML BAG 200 MG IV ×2 (10:35→21:52)
[2024-06-25 12:33] LABS: Absolute Lymphocyte Count 0.86 X10^3/uL (0.83-4.51); Absolute Neutrophil Count 6.1 X10^3/uL (2.0-7.7); Basophil# 0.04 X10^3/uL; Basophil% 0.5 % (0-1); Eosinophil# 0.58 X10^3/uL; Eosinophils% 7.1 % (0-5); Hematocrit 33.3 % (37-47); Hemoglobin 10.2 g/dL (12.0-15.0); Lymphocyte # 0.86 X10^3/ul (0.83-4.51); Lymphocyte % 10.5 % (19-41); Mean Corp Hgb Conc 30.6 g/dL (32-36); Mean Corpuscular Hgb 28.9 pg (27.0-32.0); Mean Corpuscular Volume 94.3 fL (81-99); Monocyte# 0.61 X10^3/uL; Monocyte% 7.4 % (0-10); NRBC Flagged by Analyzer 0 % (0-5); Neutrophil # 6.09 X10^3/uL (2.7-7.7); Neutrophil % 74.1 % (47-70); Platelet Count 128 K/mm3 (150-450); RBC Distribution Width CV 15.2 % (11.6-14.6); RBC Distribution Width SD 52.2 fl (35.1-43.9); Red Blood Count 3.53 M/mm3 (4.2-5.4); White Blood Count 8.2 K/mm3 (4.4-11.0)
[2024-06-25 13:21] LABS: Anion Gap 9 (5-15); BUN 24 mg/dL (4-19); BUN/Creat Ratio 15.3 RATIO (10-20); Calcium,Total 9.5 mg/dL (7.6-11.0); Carbon Dioxide 27.6 mmol/L (21.0-32.0); Chloride 105 mmol/L (98-108); Creatinine, Serum 1.58 mg/dL (0.70-1.20); EST Glomerular Filtration Rate 34 (>60); Estimated Creatinine Clearance 42.46 ml/min (50-250); Glucose 118 mg/dL (70-99); Potassium 4.3 mmol/L (3.3-5.1); Sodium Level 141 mmol/L (133-145)
--- NOTE | 2024-06-25 13:28 | PN.ID_ITS ---
Physical Exam Narrative Feeling better, no fever, abd less sore and red Const alert and no apparent distress General Appearance: cooperative Resp normal air movement and clear to auscultation bilaterally Cardio regular rate and regular rhythm GI GI Narrative: abd pannus less red/indurated/tender Skin Skin Narrative: no other rash ID ID: Route of nutrition/ use of supplements: [] Nutritional Intake: [] IV Site: [] Croft Catheter: [] Assessment & Plan Assessment/Plan (1) Panniculitis: PLAN: Prior h/o VRE and ESBL. On linezolid and nguyễn for now, feeling better. Ok for home with 10 days linezolid po, d/w immigration case worker. Has tolerated cefepime previously in our system, so something like po cefdinir could also be an option for oral strep coverage if linezolid is not an option. Will follow prn
--- NOTE | 2024-06-25 13:36 | CASEMGMT ---
Per ID patient can discharge on PO ATB. RN CM in to discuss needs at discharge. Patient ambulated SBA with therapy and denies need for HHC at discharge. Patient has portable oxygen in room for at discharge. Patient denies further needs or concerns. Patient had no further questions. Green sheet placed on chart if patient would need increase in home oxygen.
--- NOTE | 2024-06-25 14:18 | CHAPLAIN ---
Type of Pastoral Visit _x__ Initial Visit ___ Follow-up Visit ___ On-call Visit ___ General Patient Visit ___ Spiritual Assessment ___ Family Conference ___ Bereavement ___ Rapid Response ___ Code Blue ___ Other (describe below) Pastoral Care Referral From _x__ Patient ___ Family ___ Nurse ___ Physician ___ Instructor Dramatic Arts ___ Gas Adjuster ___ Other (describe below) Sacrament/Intervention _x__ Active listening ___ Anointing ___ Mosque ___ Bereavement ___ Communion ___ Caryn exploration ___ ___ Life review _x__ Prayer ___ Reconciliation ___ Sacrament of Sick ___ Supportive presence ___ Wedding ___ Other (describe below) Pastoral Comments patient reports feeling better and must get antibiotics before going home; pt welcomes presence and prayer
--- NOTE | 2024-06-25 16:03 | PN.HOSP_ITS ---
Reason for Visit Reason for Visit: Diagnoses Panniculitis, unspecified (06/23/24) Objective Data Objective Data Vital Signs: Vital Signs Temp Pulse Resp BP Pulse Ox O2 Del Method O2 Flow Rate 97.9 F 62 17 120/54 L 99 Nasal Cannula 2 06/25/24 15:30 06/25/24 15:30 06/25/24 15:30 06/25/24 15:30 06/25/24 15:30 06/25/24 15:30 06/25/24 15:30 Oxygen Flow Rate (L/min) 2 Oxygen Delivery Method Nasal Cannula Weight: 293 lb 6.964 oz Body Mass Index (BMI) 45.9 Intake & Output: Intake and Output for Last 24 Hours 06/23/24 06/24/24 06/25/24 23:59 23:59 23:59 Intake Total 840 / 840 1142.00 / 1142.00 660.00 / 660.00 Balance 840 / 840 1142.00 / 1142.00 660.00 / 660.00 Lab / Micro Data 06/25/24 12:22 06/25/24 12:22 Labs: Laboratory Results - last 24 hr 06/25/24 12:22: WBC 8.2, RBC 3.53 L, Hgb 10.2 L, Hct 33.3 L, MCV 94.3, MCH 28.9, MCHC 30.6 L, RDW Std Deviation 52.2 H, RDW Coeff of Ruben 15.2 H, Plt Count 128 L, MPV 12.0, Immature Gran % (Auto) 0.400, Neut % (Auto) 74.1 H, Lymph % (Auto) 10.5 L, [place] % (Auto) 7.4, Eos % (Auto) 7.1 H, Baso % (Auto) 0.5, Absolute Neuts (auto) 6.1, Absolute Lymphs (auto) 0.86, Nucleated RBC % 0, Sodium 141, Potassium 4.3, Chloride 105, Carbon Dioxide 27.6, Anion Gap 9, BUN 24 H, C reatinine 1.58 H, Estim Creat Clear Calc 42.46 L, Est GFR (MDRD) Non-Af 34 L, BUN/Creatinine Ratio 15.3, Glucose 118 H, Calcium 9.5 Micro: Microbiology 06/23/24 13:00 Urine, Clean Catch Urine Culture - Final Presumptive E. coli 06/23/24 12:27 Blood Culture (Wb) - Anticubital Left Blood Culture - Preliminary No growth in 48 hours. 06/23/24 12:15 Blood Culture (Wb) - Anticubital Left Blood Culture - Preliminary No growth in 48 hours. 06/23/24 12:27 Mucosa - Nose SARS-CoV-2, Influenza & RSV (PCR) - Final Physical Exam Narrative Patient admitted to the abdominal wall pannus subcutaneous cellulitis and fever Seen and examined. General: Alert, Oriented x3, Cooperative. Morbid obesity BMI 46.0 kg/m? HEENT: Atraumatic, PERRLA, EOMI, Normocephalic. Oral: No Gingival or Mucosal Lesions/ Ulcerations Neck: Supple, No JVD, Negative Carotid Bruits Chest wall/Lungs: Air entry diminished in bilateral lung bases. No crepitation/rhonchi Cardiovascular: Regular rate and rhythm, Normal S1,S2, No M/G/R Abdomen: Abdominal big pannus. Bowel Sounds Present, Soft, Non Tender, Non- Distended : No dysuria. No renal angle tenderness. No suprapubic tenderness. Extremities: No edema, Capillary Refill Less than 3 Seconds Skin: Wound photo reviewed. Has a small ulcer over the undersurface of big pannus. Tenderness, redness and induration of subcutaneous fat of mid to lower abdomen has improved. Musculoskeletal: No Tenderness to Palpation of Joints or Extremities Neurological: Cranial nerves II-XII grossly intact, DTR 2+/4. No acute focal neurological deficit. Psych/Mental Status: Normal Affect, Appropriate. Assessment & Plan Assessment/Plan (1) Panniculitis: PLAN: Plan 78-year-old female admitted with increased redness of the abdominal pannus with fever chills and increased shortness of breath. On 2 L of oxygen at baseline. # Recurrent abdominal pannus cellulitis: In [facility] when she was admitted in May was treated with ertapenem and was discharged home on doxycycline. Recent wound culture in wound care clinic on September 10 grew Pseudomonas, ESBL E. coli, Enterococcus and VRE in coagulase-negative staph. ID consult reviewed. Prior history of VRE and ESBL. Has leukocytosis. - Started on linezolid and meropenem per ID recommendations - Discussed with the wound RN. Wound photos reviewed. Small ulcer undersurface of abdominal pannus. 06/25: Dr. Ma recommended discharge home probably tomorrow on 10 days course of linezolid oral. She has tolerated cefepime previously in our system. Full p.o. cefdinir could also be option for oral strep coverage if linezolid not an option. # Abnormal UA - Concern for urinary tract infection given abnormal UA with nitrite and leuk esterase however read out as no bacteria: As per the patient's he never had complaints of lower urinary tract symptoms during UTI like increased frequency urgency or burning micturition. Urine culture shows preliminary/presumptive E. coli more than 100,000 colonies. History of frequent and recurrent UTIs - Patient already on antibiotics as above - Continue methenamine # Known staghorn colliculi -Reportedly patient is following up at the [facility] for monitoring of this, does cause intermittent hematuria so patient and family were unaware if she had any changes in urination given this is a chronic ongoing problem #Elevated troponin - Initial troponin of 45, suspect this is due to underlying infection, will trend -EKG with heart rate of 99 - Patient denies any chest pain # History of moderate aortic stenosis - Could be heard on auscultation - Echocardiogram 02/22/2023 did show moderate aortic stenosis at that time - Outpatient follow-up #Paroxysmal Atrial Fibrillation -Rate control: Amiodarone -Anticoagulation: Eliquis # History of PE -Continue patient's home Eliquis # CKD stage III b -Appears to be at baseline -Avoid nephrotoxic agents -Daily BMPs #Hx COPD -Continue home inhalers -Incentive spirometer #GERD -Continue PPI #Depression/anxiety - Holding fluoxetine as patient is being started on linezolid #Morbid obesity -BMI documented as 46.7 kg/m? at time of admission -Complicates treatment, prognosis, outcomes -Recommend weight loss and lifestyle changes #DVT ppx: Not indicated given patient is chronically on Eliquis Microbiology Past 72 Hours 06/23/24 13:00 Urine, Clean Catch Urine Culture - Preliminary Presumptive E. coli 06/23/24 12:27 Mucosa - Nose SARS-CoV-2, Influenza & RSV (PCR) - Final Laboratory Results 06/23/24 13:00: Urine Color Brown, Urine Clarity Turbid, Urine pH 7.0, Ur Specific [place] 1.010, Urine Protein 500 H, Urine Glucose (UA) Normal, Urine Ketones Negative, Urine Occult Blood 250 H, Urine Nitrite Positive H, Urine Bilirubin 1 H, Urine Urobilinogen 4 H, Ur Leukocyte Esterase 500 H, Urine RBC > 100 SEEN, Urine WBC 10-25 SEEN, Ur Squamous Epith Cells 0 SEEN, Urine Bacteria 0 SEEN, Urine Mucus 0 SEEN 06/23/24 16:35: Troponin T Hi Sens 4Hr 48 H 06/24/24 06:35: WBC 15.3 H, RBC 3.56 L, Hgb 10.3 L, Hct 32.3 L, MCV 90.7, MCH 28.9, MCHC 31.9 L, RDW Std Deviation 50.6 H, RDW Coeff of Ruben 15.3 H, Plt Count 136 L, MPV 12.3 H, Immature Gran % (Auto) 0.700, Neut % (Auto) 86.2 H, Lymph % (Auto) 5.5 L, [place] % (Auto) 5.4, Eos % (Auto) 1.9, Baso % (Auto) 0.3, Absolute Neuts (auto) 13.2 H, Absolute Lymphs (auto) 0.85, Nucleated RBC % 0, Sodium 141, Potassium 3.7, Chloride 106, Carbon Dioxide 27.2, Anion Gap 8, BUN 19, C reatinine 1.52 H, Estim Creat Clear Calc 44.16 L, Est GFR (MDRD) Non-Af 35 L, BUN/Creatinine Ratio 12.5, Glucose 100 H, Calcium 9.3 Charges/Coding Visit Charges Inpatient E&M: 35958 Subs Hosp L2
[2024-06-25] MEDS: 0.9% Saline Lock 10 ML Syringe IV (21:52)
[2024-06-25] MEDS: Atorvastatin Calcium 10 MG Tablet PO (21:55)
--- NOTE | 2024-06-26 01:03 | CPS ---
pt is on her home cpap/bipap unit. with O2 bled in
[2024-06-26 03:08] VITALS: BMI 45.9
[2024-06-26 03:43] VITALS: BP 127/49; PULSE 60; RESP 18; TEMP 36.4; O2SAT 97
[2024-06-26 05:42] LABS: Absolute Lymphocyte Count 0.87 X10^3/uL (0.83-4.51); Absolute Neutrophil Count 3.4 X10^3/uL (2.0-7.7); Basophil# 0.04 X10^3/uL; Basophil% 0.7 % (0-1); Eosinophils% 12.2 % (0-5); Hematocrit 31.2 % (37-47); Hemoglobin 9.8 g/dL (12.0-15.0); Lymphocyte # 0.87 X10^3/ul (0.83-4.51); Lymphocyte % 15.2 % (19-41); Mean Corp Hgb Conc 31.4 g/dL (32-36); Mean Corpuscular Volume 92.3 fL (81-99); Mean Platelet Vol. 12.1 fl (6.2-12.0); Monocyte# 0.65 X10^3/uL; Monocyte% 11.3 % (0-10); NRBC Flagged by Analyzer 0 % (0-5); Neutrophil # 3.44 X10^3/uL (2.7-7.7); Neutrophil % 60.1 % (47-70); Platelet Count 126 K/mm3 (150-450); RBC Distribution Width SD 50.4 fl (35.1-43.9); Red Blood Count 3.38 M/mm3 (4.2-5.4); White Blood Count 5.7 K/mm3 (4.4-11.0)
[2024-06-26 06:20] LABS: Anion Gap 9 (5-15); BUN 24 mg/dL (4-19); BUN/Creat Ratio 14.5 RATIO (10-20); Calcium,Total 9.1 mg/dL (7.6-11.0); Carbon Dioxide 26.2 mmol/L (21.0-32.0); Chloride 106 mmol/L (98-108); Creatinine, Serum 1.65 mg/dL (0.70-1.20); EST Glomerular Filtration Rate 32 (>60); Estimated Creatinine Clearance 40.64 ml/min (50-250); Glucose 89 mg/dL (70-99); Potassium 3.7 mmol/L (3.3-5.1); Sodium Level 141 mmol/L (133-145)
[2024-06-26] MEDS: Ipratropium/Albuterol Sulfate 3 ML AMPUL.NEB INHALATION (07:25)
[2024-06-26] MEDS: Budesonide Respules 0.5 MG/2 ML AMPUL.NEB. INHALATION (07:25)
[2024-06-26 07:27] VITALS: PULSE 63; RESP 18; O2SAT 98
[2024-06-26 09:00] VITALS: BP 137/59; PULSE 65; RESP 16; TEMP 36.3; O2SAT 99
[2024-06-26] MEDS: Methenamine Hippurate 1 GM Tablet PO (09:22)
[2024-06-26] MEDS: APIXABAN 5 MG TABLET PO (09:22)
[2024-06-26] MEDS: Ascorbic Acid 500 MG Tablet PO (09:22)
[2024-06-26] MEDS: Amiodarone 200 MG Tablet PO (09:22)
[2024-06-26] MEDS: Pantoprazole Sodium 40 MG Tablet PO (09:22)
[2024-06-26] MEDS: Linezolid 600 MG 600 MG/300 ML BAG 200 MG IV (09:23)
--- NOTE | 2024-06-26 09:57 | DCINST_ITS ---
Discharge Instructions Diet Discharge Diet: 2000 mg Sodium Diet DC O2, CPAP, BIPAP needs Home O2 Discharge instructions: No Follow Up Care Test Results: Test results from this visit will be discussed in further detail at your follow- up appointment, if applicable. Discharge Plan Admission Admit Date/Time: 06/23/24 14:24 Primary Reason for Your Visit: Abdominal pannus cellulitis Attending Provider: Josef Seo Primary Care Provider: Sandrine Mireles Consulting Providers: Hari Ma; Jenna Dyer Discharge Orders/Prescriptions Prescriptions: New cefdinir 300 mg capsule 300 mg PO BID 10 Days Qty: 20 0RF Continued ergocalciferol (vitamin D2) 50,000 UNIT capsule 50,000 unit PO MAZA Patient Comments: take 1 capsule by mouth every week on sundays fluoxetine 20 MG capsule 20 mg PO DAILY Patient Comments: depression rosuvastatin [Crestor] 5 mg Tablet 5 mg PO QHS Renal Caps 1 mg capsule 1 cap PO DAILY albuterol sulfate 90 mcg/actuation aerosol powdr breath activated 2 inh inhalation Q4H PRN (Reason: shortness of breath) amiodarone 200 mg Tablet 200 mg PO DAILY Qty: 0 0RF sennosides-docusate sodium [Stool Softener-Stimulant Laxat] 8.6-50 mg Tablet 2 tab PO BID PRN (Reason: constipation) Rx Instructions: Available [id number]. Eliquis 5 mg tablet 5 mg PO BID Trelegy Ellipta 100-62.5-25 mcg blister with device 1 ea INHALATION DAILY Azo Cranberry 250 mg tablet,chewable 250 mg PO DAILY methenamine hippurate 1 gram tablet 1 g PO BID Qty: 60 2RF Rx Instructions: take with vitamin C ascorbic acid (vitamin C) [Vitamin C] 500 mg tablet 500 mg PO BID Held pantoprazole 40 mg tablet,delayed release (DR/EC) 40 mg PO DAILY Hold Instructions: Hold for 1 week furosemide 40 mg tablet 10 mg PO DAILY PRN (Reason: diuretic) Hold Instructions: Hold until creatinine returns to baseline Referrals / Follow Up: Sandrine Mireles MD [Primary Care Provider] - In 1 Week (BMP in 1 week) Hari Ma MD [Med Staff - Active Staff] - Within 2 Weeks Disposition Disposition (needs filled in before D/C Order can be placed): Home, Self Care
--- NOTE | 2024-06-26 10:07 | PCM.DC.SUM ---
Providers Date of Admission: 06/23/24 Date of Discharge: 06/26/24 Primary Care Physician: Dr. Sandrine Mireles MD Consultations 06/23/24 15:14 Consult: Infectious Disease Routine Consulting Provider: Hari Ma Reason for Consult: Panniculitis, often polymicrobial EMERGENT Consult: No MD Notified: Yes Date Notified: 06/23/24 Time Notified: 14:46 Method of Notification: Answering Service Consult: Onc/Wound/leather currier Routine Comment: Reason for Consult:: lesion under pannus Reason For Visit: ABDOMINAL PANNUS CELLULITIS Diagnosis Discharge Diagnosis (1) Panniculitis: Status: Acute Code(s): M79.3 - Panniculitis, unspecified Plan 78-year-old female admitted with increased redness of the abdominal pannus with fever chills and increased shortness of breath. On 2 L of oxygen at baseline. # Recurrent abdominal pannus cellulitis: In [facility] when she was admitted in May was treated with ertapenem and was discharged home on doxycycline. Recent wound culture in wound care clinic on September 10 grew Pseudomonas, ESBL E. coli, Enterococcus and VRE in coagulase-negative staph. ID consult reviewed. Prior history of VRE and ESBL. Has leukocytosis. - Started on linezolid and meropenem per ID recommendations - Discussed with the wound RN. Wound photos reviewed. Small ulcer undersurface of abdominal pannus. 06/25: Dr. Ma recommended discharge home probably tomorrow on 10 days course of linezolid oral. She has tolerated cefepime previously in our system. Full p.o. cefdinir could also be option for oral strep coverage if linezolid not an option. 06/26: Discussed with Dr. Ma and lianne with antibiotics cefazolin for 10 days. Meropenem and linezolid discontinued for the reasons mentioned below # ROSELYN with abnormal UA - Concern for urinary tract infection given abnormal UA with nitrite and leuk esterase however read out as no bacteria: As per the patient's he never had complaints of lower urinary tract symptoms during UTI like increased frequency urgency or burning micturition. Urine culture shows preliminary/presumptive E. coli more than 100,000 colonies. History of frequent and recurrent UTIs - Patient already on antibiotics as above - Continue methenamine 06/26: Urine culture shows presumptive E. coli more than 100,000 colonies. Increase in creatinine from admitting 1.3-1.6 I therefore meets criteria for ROSELYN patient not on obvious nephrotoxic medication. There is suspicion for linezolid which might cause acute interstitial nephritis less likely meropenem for both acute discontinued. UA with urine lisinopril ordered. Patient advised plenty of fluid intake. For precaution, hold Lasix and PPI for 1 week. Follow with PCP in 1 week with BMP UA shows osmolarity 289 normal range, random sodium 37, protein creatinine ratio 629 elevated. LE more than 500, RBC more than 100, WBC more than 100 cells, squamous epithelial 0-5 therefore it is a good sample and it is not suggestive of benign bland UA therefore chance of AIN less likely # Known staghorn colliculi -Reportedly patient is following up at the [facility] for monitoring of this, does cause intermittent hematuria so patient and family were unaware if she had any changes in urination given this is a chronic ongoing problem #Elevated troponin - Initial troponin of 45, suspect this is due to underlying infection, will trend -EKG with heart rate of 99 - Patient denies any chest pain # History of moderate aortic stenosis - Could be heard on auscultation - Echocardiogram 02/22/2023 did show moderate aortic stenosis at that time - Outpatient follow-up #Paroxysmal Atrial Fibrillation -Rate control: Amiodarone -Anticoagulation: Eliquis # History of PE -Continue patient's home Eliquis # CKD stage III b -Appears to be at baseline -Avoid nephrotoxic agents -Daily BMPs #Hx COPD -Continue home inhalers -Incentive spirometer #GERD -Continue PPI #Depression/anxiety - Holding fluoxetine as patient is being started on linezolid #Morbid obesity -BMI documented as 46.7 kg/m? at time of admission -Complicates treatment, prognosis, outcomes -Recommend weight loss and lifestyle changes #DVT ppx: Not indicated given patient is chronically on Eliquis Discharge medication reconciliation done. Discharge follow-up instructions completed. Discharge process discussed with the patient and all questions were answered to patient's satisfaction. Follow with PCP in 1 to 2 weeks Total time spent, exact 35 minutes on discharge meds reconciliation, examination, coordination of care with nurses and ancillary staff, review of imaging and blood test and discussion with the patient on follow-up instructions. Microbiology Past 72 Hours 06/23/24 13:00 Urine, Clean Catch Urine Culture - Preliminary Presumptive E. coli 06/23/24 12:27 Mucosa - Nose SARS-CoV-2, Influenza & RSV (PCR) - Final Laboratory Results 06/23/24 13:00: Urine Color Brown, Urine Clarity Turbid, Urine pH 7.0, Ur Specific Glynn 1.010, Urine Protein 500 H, Urine Glucose (UA) Normal, Urine Ketones Negative, Urine Occult Blood 250 H, Urine Nitrite Positive H, Urine Bilirubin 1 H, Urine Urobilinogen 4 H, Ur Leukocyte Esterase 500 H, Urine RBC > 100 SEEN, Urine WBC 10-25 SEEN, Ur Squamous Epith Cells 0 SEEN, Urine Bacteria 0 SEEN, Urine Mucus 0 SEEN 06/23/24 16:35: Troponin T Hi Sens 4Hr 48 H 06/24/24 06:35: WBC 15.3 H, RBC 3.56 L, Hgb 10.3 L, Hct 32.3 L, MCV 90.7, MCH 28.9, MCHC 31.9 L, RDW Std Deviation 50.6 H, RDW Coeff of Ruben 15.3 H, Plt Count 136 L, MPV 12.3 H, Immature Gran % (Auto) 0.700, Neut % (Auto) 86.2 H, Lymph % (Auto) 5.5 L, [place] % (Auto) 5.4, Eos % (Auto) 1.9, Baso % (Auto) 0.3, Absolute Neuts (auto) 13.2 H, Absolute Lymphs (auto) 0.85, Nucleated RBC % 0, Sodium 141, Potassium 3.7, Chloride 106, Carbon Dioxide 27.2, Anion Gap 8, BUN 19, Creatinine 1.52 H, Estim Creat Clear Calc 44.16 L, Est GFR (MDRD) Non-Af 35 L, BUN/Creatinine Ratio 12.5, Glucose 100 H, Calcium 9.3 Medications at Discharge Home Medications ergocalciferol (vitamin D2) 1,250 mcg (50,000 unit) capsule 50,000 unit PO MAZA SUPPLEMENT 02/25/20 fluoxetine 20 mg capsule 20 mg PO DAILY DEPRESSION 02/25/20 rosuvastatin 5 mg tablet (Crestor) 5 mg PO QHS cholesterol 01/16/21 pantoprazole 40 mg tablet,delayed release 40 mg PO DAILY reflux 03/12/21 Held on 06/26/24. Instructions: Hold for 1 week amiodarone 200 mg tablet 200 mg PO DAILY heart rate #0 tabs 02/26/23 albuterol sulfate 90 mcg/actuation breath activated powder inhaler 2 inh inhalation Q4H PRN shortness of breath 03/27/23 furosemide 40 mg tablet 10 mg PO DAILY PRN diuretic 03/27/23 Held on 06/26/24. Instructions: Hold until creatinine returns to baseline vitamin B complex and vitamin C no.20-folic acid 1 mg capsule (Renal Caps) 1 cap PO DAILY vitamin 03/27/23 sennosides 8.6 mg-docusate sodium 50 mg tablet (Stool Softener-Stimulant Laxative) 2 tab PO BID PRN constipation 06/25/23 apixaban 5 mg tablet (Eliquis) 5 mg PO BID 01/28/24 cranberry fruit concentrate 250 mg chewable tablet (Azo Cranberry) 250 mg PO DAILY 01/28/24 fluticasone fur. 100 mcg-umeclid 62.5 mcg-vilant 25 mcg inhalat.powder (Trelegy Ellipta) 1 ea inhalation DAILY 01/28/24 methenamine hippurate 1 gram tablet 1 g PO BID #60 tabs 03/15/24 ascorbic acid (vitamin C) 500 mg tablet (Vitamin C) 500 mg PO BID 06/23/24 cefdinir 300 mg capsule 300 mg PO BID 10 days #20 caps 06/26/24 Physical Exam Narrative Patient admitted to the abdominal wall pannus subcutaneous cellulitis and fever. Redness has gotten better/improved almost 80 to 90%. Seen and examined. General: Alert, Oriented x3, Cooperative. Morbid obesity BMI 46.0 kg/m? HEENT: Atraumatic, PERRLA, EOMI, Normocephalic. Oral: No Gingival or Mucosal Lesions/ Ulcerations Neck: Supple, No JVD, Negative Carotid Bruits Chest wall/Lungs: Air entry diminished in bilateral lung bases. No crepitation/rhonchi Cardiovascular: Regular rate and rhythm, Normal S1,S2, No M/G/R Abdomen: Abdominal big pannus. Bowel Sounds Present, Soft, Non Tender, Non-Distended : No dysuria. No renal angle tenderness. No suprapubic tenderness. Extremities: No edema, Capillary Refill Less than 3 Seconds Skin: Wound photo reviewed. Has a small ulcer over the undersurface of big pannus. Very slight light pinkish discoloration of his skin. No tenderness. Musculoskeletal: No Tenderness to Palpation of Joints or Extremities Neurological: Cranial nerves II-XII grossly intact, DTR 2+/4. No acute focal neurological deficit. Psych/Mental Status: Normal Affect, Appropriate. Weight / BMI Weight Weight: 293 lb 3.437 oz Body Mass Index (BMI) 45.9 ABG / Lab / Microbiology Data 06/26/24 05:15 06/26/24 05:15 Laboratory: Laboratory Results - last 24 hr 06/25/24 12:22: Sodium 141, Potassium 4.3, Chloride 105, Carbon Dioxide 27.6, Anion Gap 9, BUN 24 H, Creatinine 1.58 H, Estim Creat Clear Calc 42.46 L, Est GFR (MDRD) Non-Af 34 L, BUN/Creatinine Ratio 15.3, Glucose 118 H, Calcium 9.5 06/26/24 05:15: WBC 5.7, RBC 3.38 L, Hgb 9.8 L, Hct 31.2 L, MCV 92.3, MCH 29.0, MCHC 31.4 L, RDW Std Deviation 50.4 H, RDW Coeff of Ruben 15.0 H, Plt Count 126 L, MPV 12.1 H, Immature Gran % (Auto) 0.500, Neut % (Auto) 60.1, Lymph % (Auto) 15.2 L, [place] % (Auto) 11.3 H, Eos % (Auto) 12.2 H, Baso % (Auto) 0.7, Absolute Neuts (auto) 3.4, Absolute Lymphs (auto) 0.87, Nucleated RBC % 0, Sodium 141, Potassium 3.7, Chloride 106, Carbon Dioxide 26.2, Anion Gap 9, BUN 24 H, Creatinine 1.65 H, Estim Creat Clear Calc 40.64 L, Est GFR (MDRD) Non-Af 32 L, BUN/Creatinine Ratio 14.5, Glucose 89, Uric Acid 6.1 H, Calcium 9.1 06/26/24 10:17: Urine Color Yellow, Urine Clarity Cloudy, Urine pH 6.0, Ur Specific Glynn 1.015, Urine Protein 100 H, Urine Glucose (UA) Normal, Urine Ketones Negative, Urine Occult Blood 250 H, Urine Nitrite Negative, Urine Bilirubin Negative, Urine Urobilinogen Normal, Ur Leukocyte Esterase 500 H, Urine RBC > 100 SEEN, Urine WBC >100 SEEN, Ur Squamous Epith Cells 0-5 SEEN, Urine Bacteria 0 SEEN, Urine Mucus 0 SEEN, Urine Osmolality 289, U Random Total Protein 42.4 H, Ur Random Sodium 37, Urine Creatinine 67.40, Protein/Creatinin Ratio 629 H, Urine Potassium 11.3, Urine Chloride 24 Microbiology: Microbiology 06/23/24 13:00 Urine, Clean Catch Urine Culture - Final Presumptive E. coli 06/23/24 12:27 Blood Culture (Wb) - Anticubital Left Blood Culture - Preliminary No growth in 48 hours. 06/23/24 12:15 Blood Culture (Wb) - Anticubital Left Blood Culture - Preliminary No growth in 48 hours. 06/23/24 12:27 Mucosa - Nose SARS-CoV-2, Influenza & RSV (PCR) - Final D/C Instructions Discharge Diet: 2000 mg Sodium Diet DC O2, CPAP, BIPAP Needs Home O2 Discharge instructions: No Meaningful Use Info Meaningful Use Meaningful Use Diagnoses (Choose all that apply): None applicable Ischemic Stroke Statin Dosing Therapy Reference: STATIN DOSE THERAPY REFERENCE: * Patients > 75 years receive moderate or high dose statin therapy. * Patients 75 years or YOUNGER should receive HIGH intensity statin dose unless contraindicated. You will be required to document reason for non-treatment if statin daily dose does not meet guidelines. HIGH DOSE STATIN THERAPY DAILY Atorvastatin > than or = to 40 mg Rosuvastatin > than or = to 20 mg Amlodipine + Atorvastatin > than or = to 2.5/40 mg Ezetimibe + Simvastatin 10/80 mg Simvastatin 80mg Discharge Plan Admission Admit Date/Time: 06/23/24 14:24 Primary Reason for Your Visit: Abdominal pannus cellulitis Attending Provider: Josef Seo Primary Care Provider: Sandrine Mireles Consulting Providers: Hari Ma; Jenna Dyer Discharge Orders/Prescriptions Prescriptions: New cefdinir 300 mg capsule 300 mg PO BID 10 Days Qty: 20 0RF Continued ergocalciferol (vitamin D2) 50,000 UNIT capsule 50,000 unit PO MAZA Patient Comments: take 1 capsule by mouth every week on sundays fluoxetine 20 MG capsule 20 mg PO DAILY Patient Comments: depression rosuvastatin [Crestor] 5 mg Tablet 5 mg PO QHS Renal Caps 1 mg capsule 1 cap PO DAILY albuterol sulfate 90 mcg/actuation aerosol powdr breath activated 2 inh inhalation Q4H PRN (Reason: shortness of breath) amiodarone 200 mg Tablet 200 mg PO DAILY Qty: 0 0RF sennosides-docusate sodium [Stool Softener-Stimulant Laxat] 8.6-50 mg Tablet 2 tab PO BID PRN (Reason: constipation) Rx Instructions: Available [id number]. Eliquis 5 mg tablet 5 mg PO BID Trelegy Ellipta 100-62.5-25 mcg blister with device 1 ea INHALATION DAILY Azo Cranberry 250 mg tablet,chewable 250 mg PO DAILY methenamine hippurate 1 gram tablet 1 g PO BID Qty: 60 2RF Rx Instructions: take with vitamin C ascorbic acid (vitamin C) [Vitamin C] 500 mg tablet 500 mg PO BID Held pantoprazole 40 mg tablet,delayed release (DR/EC) 40 mg PO DAILY Hold Instructions: Hold for 1 week furosemide 40 mg tablet 10 mg PO DAILY PRN (Reason: diuretic) Hold Instructions: Hold until creatinine returns to baseline Referrals / Follow Up: Sandrine Mireles MD [Primary Care Provider] - In 1 Week (BMP in 1 week) Hari Ma MD [Med Staff - Active Staff] - Within 2 Weeks Disposition Disposition (needs filled in before D/C Order can be placed): Home, Self Care Charges/Coding Visit Charges Inpatient E&M: 72201 Disch Hosp >30min
[2024-06-26 10:22] LABS: Uric Acid 6.1 mg/dL (2.6-6.0)
[2024-06-26 10:30] LABS: Bacteria 0 SEEN /hpf (None Seen); Mucous, Urine 0 SEEN /hpf (<or=2+)
[2024-06-26 10:34] LABS: Color, Urine Yellow (Yellow); Glucose, Dipstick Normal (Normal); Ketone-Dipstick Negative (Negative); Leukocyte Esterase-Dipstick 500 /ul (Negative); Nitrite-Dipstick Negative (Negative); Occult Blood-Urine 250 /ul (Negative); Protein-Dipstick 100 mg/dl (Negative); Specific Gravity, Urine 1.015 (1.002-1.030); Urine Bilirubin Dipstick Negative (Negative); Urine Clarity Cloudy (Clear); Urine Urobilinogen Normal (Normal)
[2024-06-26 10:41] LABS: Red Blood Cells-Urine > 100 SEEN /hpf (0-5); Squamous Epithelial Cells - UA 0-5 SEEN /hpf (5-10); White Blood Cells >100 SEEN /hpf (0-5)
[2024-06-26 11:25] LABS: Protein, Urine (Random) 42.4 mg/dL (0.0-12.0); Protein:Creat Ratio 629 mg/g CRE (0-200); Urine Chloride 24 mmol/L (Not Establ.); Urine Potassium 11.3 mmol/L (Not Establ.); Urine Sodium 37 mmol/L (Not Establ.)
[2024-06-26 11:39] LABS: Osmolality, Urine 289 mOsm/KG
[2024-06-26 11:41] VITALS: O2SAT 92; O2SAT 94
== END 2024-06-26 14:02 | disposition home or self-care (01) | DRG 603 ==
LOC: ED 14:24 → PCU 14:39
PROVIDERS: Admitting Provider Internal Medicine; Emergency Provider Emergency Medicine; PCP Internal Medicine; Visit Provider Internal Medicine
DX: L03.311 Cellulitis of abdominal wall (principal); N17.9 Acute kidney failure, unspecified; Z68.42 Body mass index [BMI] 45.0-49.9, adult; N39.0 Urinary tract infection, site not specified; E11.22 Type 2 diabetes mellitus with diabetic chronic kidney disease; F32.A Depression, unspecified; E66.01 Morbid (severe) obesity due to excess calories; B96.20 Unspecified Escherichia coli [E. coli] as the cause of diseases classified elsewhere; J44.9 Chronic obstructive pulmonary disease, unspecified; N18.32 Chronic kidney disease, stage 3b; I12.9 Hypertensive chronic kidney disease with stage 1 through stage 4 chronic kidney disease, or unspecified chronic kidney disease; I35.0 Nonrheumatic aortic (valve) stenosis; I48.0 Paroxysmal atrial fibrillation; F41.9 Anxiety disorder, unspecified; K21.9 Gastro-esophageal reflux disease without esophagitis; G47.33 Obstructive sleep apnea (adult) (pediatric); I44.0 Atrioventricular block, first degree; M79.3 Panniculitis, unspecified; R79.89 Other specified abnormal findings of blood chemistry; N20.0 Calculus of kidney; Z87.440 Personal history of urinary (tract) infections; Z86.711 Personal history of pulmonary embolism; Z79.01 Long term (current) use of anticoagulants; Z79.899 Other long term (current) drug therapy; Z86.19 Personal history of other infectious and parasitic diseases
CPT/HCPCS: 36415; 71045; 80048; 80076; 81001; 82436; 82570; 83605; 83935; 84133; 84156; 84300; 84484; 84550; 85025; 85610; 85730; 87040; 87086; 87088; 87186; 87631; 93005; 94640; 94668; 94760; 97162; 97166; 97530; 97802; 99284; J2020; J2185; A4216

== ENCOUNTER → 2024-06-30 | Outpatient (CLI) | payer MEDICARE, OTHER, SELFPAY ==
[2024-06-30 16:48] LABS: Absolute Lymphocyte Count 0.84 X10^3/uL (0.83-4.51); Absolute Neutrophil Count 4.4 X10^3/uL (2.0-7.7); Basophil# 0.08 X10^3/uL; Basophil% 1.2 % (0-1); Eosinophil# 0.72 X10^3/uL; Eosinophils% 10.6 % (0-5); Hematocrit 35.8 % (37-47); Hemoglobin 11.1 g/dL (12.0-15.0); Lymphocyte # 0.84 X10^3/ul (0.83-4.51); Lymphocyte % 12.4 % (19-41); Mean Corpuscular Hgb 28.2 pg (27.0-32.0); Mean Corpuscular Volume 91.1 fL (81-99); Mean Platelet Vol. 11.6 fl (6.2-12.0); Monocyte# 0.68 X10^3/uL; NRBC Flagged by Analyzer 0 % (0-5); Neutrophil # 4.38 X10^3/uL (2.7-7.7); Neutrophil % 64.3 % (47-70); Platelet Count 159 K/mm3 (150-450); RBC Distribution Width CV 14.6 % (11.6-14.6); RBC Distribution Width SD 48.6 fl (35.1-43.9); Red Blood Count 3.93 M/mm3 (4.2-5.4); White Blood Count 6.8 K/mm3 (4.4-11.0)
[2024-06-30 17:44] LABS: Anion Gap 8 (5-15); BUN 15 mg/dL (4-19); BUN/Creat Ratio 14.4 RATIO (10-20); Calcium,Total 9.9 mg/dL (7.6-11.0); Carbon Dioxide 28.7 mmol/L (21.0-32.0); Chloride 105 mmol/L (98-108); Creatinine, Serum 1.05 mg/dL (0.70-1.20); EST Glomerular Filtration Rate 55 (>60); Glucose 83 mg/dL (70-99); Potassium 4.1 mmol/L (3.3-5.1); Sodium Level 142 mmol/L (133-145)
== END | disposition home or self-care (01) ==
LOC: LAB 15:33
PROVIDERS: PCP Internal Medicine; Referring Provider Internal Medicine; Visit Provider Internal Medicine
DX: N18.30 Chronic kidney disease, stage 3 unspecified (principal)
CPT/HCPCS: 36415; 80048; 85025

== ENCOUNTER 2024-07-10 02:01 | Inpatient (IN) | payer MEDICARE, OTHER, SELFPAY ==
[2024-07-10] VITALS (14 sets, daily range): BP systolic 102–131; BP diastolic 33–81; PULSE 72–94; RESP 16–20; TEMP 36.3–38.5; O2SAT 93–99; BMI 44.4
--- NOTE | 2024-07-10 02:30 | EKG12_ITS ---
Test Reason : DYSRHYTHMIA Blood Pressure : */* mmHG Vent. Rate : 98 BPM Atrial Rate : 98 BPM P-R Int : 234 ms QRS Dur : 130 ms QT Int : 362 ms P-R-T Axes : 46 -4 30 degrees QTcB Int : 462 ms Sinus rhythm with 1st degree A-V block Right bundle branch block Abnormal ECG Confirmed by Martinez Kramer ([id number]), rewrite editor JOSELIN SMART ([id number]) on 07/19/2024 1:01:54 PM Referred By: Confirmed By: Martinez Kramer
--- NOTE | 2024-07-10 03:02 | EX.ED.DYSGE1 ---
HPI History of Present Illness Chief Complaint: General Illness Narrative Narrative: Chief complaint and HPI: 78-year-old female presents for evaluation of fever. Patient has a significant past medical history including infections with multiple drug-resistant organisms, recurrent UTIs with staghorn calculus, pannus cellulitis, CKD, ROBBI, DM2, HTN. History taken by patient, daughter on the phone, as well as medical record. Patient was recently admitted and discharged from [facility] on per their report. Daughter states that she was at [facility] due to aortic stenosis and needing a heart cath for further assessment. There she developed a fever in which she was admitted to the hospital. Was given antibiotics and discharged home. Patient states she is currently not on antibiotics. Patient states yesterday she developed a fever of 100.5. She states today she felt chills so she decided to be evaluated. She states that she becomes septic fast and is worried about a UTI. She denies any headache, URI symptoms, chest pain, shortness of breath, abdominal pain, nausea, vomiting, dysuria, diarrhea, constipation. Review of systems: See HPI Medications: As listed on the chart Allergies: As listed on the chart PFSH: Per chart Vital signs: As listed on the chart. Reviewed. Physical exam: Gen: A&O x3, NAD Head: Normocephalic, atraumatic Eyes: No sclera icterus, conjunctiva clear ENT: Moist mucous membranes Neck: Trachea midline, No JVD CV: RRR, + systolic murmur, no peripheral edema Resp: Lungs CTA BL, no w/r/c, 2 L nasal cannula which is patient's baseline GI: Obese, abd soft, non-distended, non-tender, no r/r/g : No CVA tenderness Musc: Moves all extremities, no deformity Skin: Warm, patient's abdominal pannus has erythema diffusely however is improved from previous marker line, warm. Patient has chronic wounds with friable tissue underneath the pannus and least like skin changes toward the inguinal regions. Patient states those previous marker lines from when she was seen in our emergency department earlier this June. Left upper extremity shows some bruising from previous IV site with some mild erythema Neuro: Alert, oriented, grossly intact, sensation intact Psych: Cooperative, appropriate mood and affect [facility] Medical History (Updated 07/10/24 @ 06:[address] Zain Alex, DO) Morbid obesity with BMI of 50.0-59.9, adult Panniculitis Sepsis History of ESBL E. coli infection Multiple drug resistant organism (MDRO) culture positive ESBL (extended spectrum beta-lactamase) producing bacteria infection Chronic kidney disease Bacteremia due to Escherichia coli Morbid obesity CKD (chronic kidney disease), stage IV GERD (gastroesophageal reflux disease) History of venous thromboembolism Anxiety and depression Chronic anemia ROBBI treated with BiPAP UTI (urinary tract infection) Abdominal pannus Open abdominal wall wound Type 2 diabetes mellitus Chronic obstructive pulmonary disease with hypoxia Bilateral pulmonary embolism (07/2014) Postoperative atrial fibrillation (06/2014) Essential hypertension Multiple thyroid nodules Osteomyelitis of cervical spine Home Medications ?Medication ?Instructions ?Recorded ?Last Taken ?Type ergocalciferol (vitamin D2) 1,250 50,000 unit PO MAZA SUPPLEMENT 02/25/20 06/20/24 History mcg (50,000 unit) capsule fluoxetine 20 mg capsule 20 mg PO DAILY DEPRESSION 02/25/20 06/23/24 History rosuvastatin 5 mg tablet (Crestor) 5 mg PO QHS cholesterol 01/16/21 06/22/24 History pantoprazole 40 mg tablet,delayed 40 mg PO DAILY reflux 03/12/21 06/23/24 History release amiodarone 200 mg tablet 200 mg PO DAILY heart rate #0 tabs 02/26/23 06/23/24 Rx albuterol sulfate 90 mcg/actuation 2 inh inhalation Q4H PRN shortness 03/27/23 04/16/23 08:22 History breath activated powder inhaler of breath furosemide 40 mg tablet 40 mg PO DAILY PRN diuretic 03/27/23 06/20/24 History Held on 06/26/24. Instructions: Hold until creatinine returns to baseline vitamin B complex and vitamin C 1 cap PO DAILY vitamin 03/27/23 06/23/24 History no.20-folic acid 1 mg capsule (Renal Caps) sennosides 8.6 mg-docusate sodium 2 tab PO BID PRN constipation 06/25/23 Unknown History 50 mg tablet (Stool Softener-Stimulant Laxative) apixaban 5 mg tablet (Eliquis) 5 mg PO BID 01/28/24 06/23/24 History cranberry fruit concentrate 250 mg 250 mg PO DAILY 01/28/24 06/23/24 History chewable tablet (Azo Cranberry) fluticasone fur. 100 mcg-umeclid 1 ea inhalation DAILY 01/28/24 06/23/24 History 62.5 mcg-vilant 25 mcg inhalat.powder (Trelegy Ellipta) methenamine hippurate 1 gram tablet 1 g PO BID #60 tabs 03/15/24 06/23/24 Rx ascorbic acid (vitamin C) 500 mg 500 mg PO BID 06/23/24 06/23/24 History tablet (Vitamin C) Allergy/AdvReac Type Severity Reaction Status Date / Time piperacillin (From Zosyn) Allergy Mild Angioedema Verified 07/10/24 02:03 tazobactam (From Zosyn) Allergy Mild Angioedema Verified 07/10/24 02:03 aspartame Allergy EDEMA Verified 07/10/24 02:03 ibuprofen Allergy Shortness Verified 07/10/24 02:03 of breath oxycodone HCl (From Percocet) Allergy dizziness Verified 07/10/24 02:03 procaine (From Novocain) Allergy Other Verified 07/10/24 02:03 Family History Father Diabetes Asthma Mother CAD (coronary artery disease) Heart disease Myocardial infarction Hypertension Surgical History History of spinal fusion History of cholecystectomy History of Social History household members: family Smoking Status: Never smoker alcohol intake: never substance use type: does not use EXAM Physical Exam Const Vital Signs: 07/10/24 02:03 07/10/24 02:06 07/10/24 02:07 Temperature 98.6 F 98.6 F Temperature Source Oral Oral Pulse Rate 93 93 Respiratory Rate 18 18 Respiratory Effort Normal Non-Labored Respiratory Pattern Normal Blood Pressure 131/51 H 131/51 H Blood Pressure Mean 77 77 Pulse Ox 94 94 Oxygen Delivery Method Nasal Cannula Nasal Cannula Oxygen Flow Rate (L/min) 2 2 07/10/24 03:00 07/10/24 04:00 07/10/24 05:00 Temperature 99.6 F H 100.1 F H 99.6 F H Temperature Source Oral Oral Oral Pulse Rate 94 93 92 Respiratory Rate 18 18 18 Respiratory Effort Respiratory Pattern Blood Pressure 120/81 H 106/79 112/45 L Blood Pressure Mean 94 88 67 Pulse Ox 95 98 94 Oxygen Delivery Method Nasal Cannula Nasal Cannula Nasal Cannula Oxygen Flow Rate (L/min) 2 2 2 MDM MDM MDM Narrative Medical decision making narrative: 78-year-old female presents for evaluation of fever. Patient has a significant past medical history including infections with multiple drug-resistant organisms, recurrent UTIs with staghorn calculus, pannus cellulitis, CKD, ROBBI, DM2, HTN. Patient is worried about infection given her history which is why she presents for fever. On presentation, patient is afebrile with stable vital signs other than mild hypertension. She is on her baseline 2 L nasal cannula. Physical exam shows continued pannus cellulitis. On chart review she was seen in our emergency department on 06/23/2024. When reading the notes, physical exam appears similar although improved from marker line. Discharge summary on 06/26 states that the patient was discharged home on 10 days of cefazolin. Patient states that she did take these antibiotics. She states she is currently not on any. I did [facility] the patient and there is no record of her previous/recent admission at [facility] therefore I cannot review the discharge summary. Differential diagnosis includes but is not limited to UTI, pannus cellulitis, pneumonia, viral illness, superficial left upper extremity thrombophlebitis. I do not have ultrasound available to check for thrombophlebitis. Basic labs ordered with UA. Will obtain UA with straight cath. Chest x-ray ordered. I do not think any further imaging is needed. CBC with leukocytosis of 20.1. This is up from 06/30/2024. Patient has baseline anemia on chart review. CMP shows renal insufficiency with a creatinine of 1.53. She has history of this in the past however on 06/30/2024 creatinine was normal. No transaminitis. UA was obtained via straight cath. Positive for blood. Positive for UTI. On chart review, patient has history of multiple drug-resistant organisms including ESBL. Meropenem ordered. Blood cultures will be obtained. Lactic acid unremarkable. COVID, flu, RSV negative. Patient will warrant admission. I spoke with the hospitalist service, Dr. Kramer. Given patient has a history of a staghorn calculus he would like imaging performed prior to admission. CT abdomen pelvis without contrast ordered. CT abdomen pelvis shows marked left greater than right subcutaneous soft tissue edema lower ventral abdominal soft tissue and overlying skin thickening. This correlates with her pannus cellulitis. She has multiple right-sided intrarenal stones with a 1.5 cm stone seen at the right renal pelvis. No hydronephrosis or significant appearing perinephric stranding. Dr. Kramer was recontacted and patient was discussed. Accepted admission. Patient was updated of all the results EKG: Interpreted by me/EM physician: EKG shows normal sinus rhythm with first-degree AV block. And right bundle branch block. Heart rate 98. No acute ischemic changes. This is compared to previous EKG. Diagnostic: Interpreted by me/EM physician: Chest x-ray without pneumonia, effusion, cardiomegaly, pneumothorax. You can see patient's hardware. Radiology in agreement. Impression: 1. UTI 2. Pannus cellulitis 3. Fever 4. History of multiresistant bacteria Lab Data Labs: Laboratory Results - last 24 hr 07/10/24 03:11 WBC 20.1 H RBC 4.10 L Hgb 11.7 L Hct 37.4 MCV 91.2 MCH 28.5 MCHC 31.3 L RDW Std Deviation 49.1 H RDW Coeff of Ruben 14.9 H Plt Count 154 MPV 12.3 H Immature Gran % (Auto) 0.900 Neut % (Auto) 92.1 H Lymph % (Auto) 2.1 L [place] % (Auto) 2.7 Eos % (Auto) 2.0 Baso % (Auto) 0.2 Absolute Neuts (auto) 18.5 H Absolute Lymphs (auto) 0.42 L Nucleated RBC % 0 Sodium 144 Potassium 4.8 Chloride 104 Carbon Dioxide 28.6 Anion Gap 11 BUN 23 H Creatinine 1.53 H Est GFR (MDRD) Non-Af 35 L BUN/Creatinine Ratio 15.0 Glucose 140 H Lactic Acid 1.6 Calcium 10.6 Total Bilirubin 0.60 AST 28 ALT 31 Alkaline Phosphatase 117 H Total Protein 7.0 Albumin 3.9 Globulin 3.2 Albumin/Globulin Ratio 1.2 Urine Color Brown Urine Clarity Cloudy Urine pH 6.0 Ur Specific [place] 1.010 Urine Protein 100 H Urine Glucose (UA) Normal Urine Ketones Negative Urine Occult Blood 250 H Urine Nitrite Negative Urine Bilirubin Negative Urine Urobilinogen Normal Ur Leukocyte Esterase 500 H Urine RBC > 100 SEEN Urine WBC >100 SEEN Ur Squamous Epith Cells 0 SEEN Urine Bacteria 1+ Urine Mucus 0 SEEN Radiography Diagnostic Testing: Clinical Impression(s) from Imaging Studies Chest X-Ray 07/10/24 03:25 IMPRESSION: No evidence of acute disease. Reading Location: [facility] Abdomen/Pelvis CT 07/10/24 04:54 IMPRESSION: Marked cief-[id number] subcutaneous soft tissue edema lower ventral abdominal soft tissues and overlying skin thickening for example axial 243, correlate for possible cellulitis. The most inferior portion is excluded from imaging. Multiple right-sided intrarenal stones with a 1.5 cm stone seen at the right renal pelvis. No hydronephrosis or significant appearing perinephric stranding. No ureteral or bladder stone identified. Similar appearance of bandlike area of collapse, consolidation at the udlha-[id number]-djtv-left lower lobes and either very small right pleural fluid versus pleural thickening again noted, not significantly changed. Reading Location: [facility] Discharge Plan Triage Chief Complaint: General Illness ED Provider: Douglas Muñoz Dx/Rx/DC Orders Prescriptions: No Action pantoprazole 40 mg tablet,delayed release (DR/EC) 40 mg PO DAILY ergocalciferol (vitamin D2) 50,000 UNIT capsule 50,000 unit PO MAZA Patient Comments: take 1 capsule by mouth every week on sundays fluoxetine 20 MG capsule 20 mg PO DAILY Patient Comments: depression rosuvastatin [Crestor] 5 mg Tablet 5 mg PO QHS furosemide 40 mg tablet 40 mg PO DAILY PRN (Reason: diuretic) Renal Caps 1 mg capsule 1 cap PO DAILY albuterol sulfate 90 mcg/actuation aerosol powdr breath activated 2 inh inhalation Q4H PRN (Reason: shortness of breath) amiodarone 200 mg Tablet 200 mg PO DAILY Qty: 0 0RF sennosides-docusate sodium [Stool Softener-Stimulant Laxat] 8.6-50 mg Tablet 2 tab PO BID PRN (Reason: constipation) Rx Instructions: Available [id number]. Eliquis 5 mg tablet 5 mg PO BID Trelegy Ellipta 100-62.5-25 mcg blister with device 1 ea INHALATION DAILY Azo Cranberry 250 mg tablet,chewable 250 mg PO DAILY methenamine hippurate 1 gram tablet 1 g PO BID Qty: 60 2RF Rx Instructions: take with vitamin C ascorbic acid (vitamin C) [Vitamin C] 500 mg tablet 500 mg PO BID Primary Care Provider: Sandrine Mireles Referrals: Sandrine Mireles MD [Primary Care Provider] - Print Language: Montenegrin
[2024-07-10 03:19] LABS: Mucous, Urine 0 SEEN /hpf (<or=2+); Squamous Epithelial Cells - UA 0 SEEN /hpf (5-10)
--- NOTE | 2024-07-10 03:25 | RAD_ITS ---
PROCEDURE: CHEST PA AND LATERAL 07/10/2024 REASON FOR EXAM: FEVER TECHNIQUE: Frontal and lateral views of the chest. Frontal and 2 lateral views, 3 total images COMPARISON: 06/23/2024 FINDINGS: Patient is rotated to the right. The lungs appear clear. The cardiac and mediastinal contours appear unchanged. Ectatic appearing thoracic aorta again noted. Lower thoracic cage device and multilevel partially imaged spinal fusion again noted. RAD/Chest PA and Lateral IMPRESSION: No evidence of acute disease. Reading Location: [id number]
[2024-07-10 03:45] LABS: Absolute Lymphocyte Count 0.42 X10^3/uL (0.83-4.51); Absolute Neutrophil Count 18.5 X10^3/uL (2.0-7.7); Basophil# 0.05 X10^3/uL; Basophil% 0.2 % (0-1); Hematocrit 37.4 % (37-47); Hemoglobin 11.7 g/dL (12.0-15.0); Lymphocyte # 0.42 X10^3/ul (0.83-4.51); Lymphocyte % 2.1 % (19-41); Mean Corp Hgb Conc 31.3 g/dL (32-36); Mean Corpuscular Hgb 28.5 pg (27.0-32.0); Mean Corpuscular Volume 91.2 fL (81-99); Mean Platelet Vol. 12.3 fl (6.2-12.0); Monocyte# 0.54 X10^3/uL; Monocyte% 2.7 % (0-10); NRBC Flagged by Analyzer 0 % (0-5); Neutrophil # 18.46 X10^3/uL (2.7-7.7); Neutrophil % 92.1 % (47-70); POSITIVE COUNT YES; POSITIVE DIFFERENTIAL YES; Platelet Count 154 K/mm3 (150-450); RBC Distribution Width CV 14.9 % (11.6-14.6); RBC Distribution Width SD 49.1 fl (35.1-43.9); White Blood Count 20.1 K/mm3 (4.4-11.0)
[2024-07-10 03:50] LABS: Color, Urine Brown (Yellow); Glucose, Dipstick Normal (Normal); Ketone-Dipstick Negative (Negative); Leukocyte Esterase-Dipstick 500 /ul (Negative); Nitrite-Dipstick Negative (Negative); Occult Blood-Urine 250 /ul (Negative); Protein-Dipstick 100 mg/dl (Negative); Urine Bilirubin Dipstick Negative (Negative); Urine Clarity Cloudy (Clear); Urine Urobilinogen Normal (Normal)
[2024-07-10] MEDS: Acetaminophen 500 MG Tablet 1000 MG PO (04:09)
[2024-07-10 04:10] LABS: Lactic Acid 1.6 mmol/L (0.0-2.0)
[2024-07-10 04:11] LABS: Bacteria 1+ /hpf (None Seen); Red Blood Cells-Urine > 100 SEEN /hpf (0-5); White Blood Cells >100 SEEN /hpf (0-5)
[2024-07-10 04:12] LABS: Differential Indicated SCAN CRITERIA MET
[2024-07-10 04:21] LABS: ALB/GLOB Ratio 1.2 RATIO (0.9-2.4); AST(SGOT) 28 U/L (<=31); Alanine Aminotransfer ALT/SGPT 31 U/L (<=34); Albumin, Serum 3.9 g/dL (3.4-4.8); Alkaline Phosphatase 117 U/L (35-104); Anion Gap 11 (5-15); BUN 23 mg/dL (4-19); Calcium,Total 10.6 mg/dL (7.6-11.0); Carbon Dioxide 28.6 mmol/L (21.0-32.0); Chloride 104 mmol/L (98-108); Creatinine, Serum 1.53 mg/dL (0.70-1.20); EST Glomerular Filtration Rate 35 (>60); Globulin 3.2 g/dL (2.2-4.2); Glucose 140 mg/dL (70-99); Potassium 4.8 mmol/L (3.3-5.1); Sodium Level 144 mmol/L (133-145)
--- NOTE | 2024-07-10 04:49 | PCM.HP.STD ---
[facility] - General General Date of Admission: 07/10/24 Date of Service: 07/10/24 Chief Complaint: Fever and Suspected UTI. HPI Narrative CLAIRE BRADLEY, is a 78 F with a past medical history of essential hypertension; on furosemide, hyperlipidemia; on rosuvastatin, morbid obesity; with BMI of 53.7 this admission, obstructive sleep apnea; on BiPAP, diabetes mellitus type 2; of unknown control currently not on treatment, diabetic neuropathy, paroxysmal atrial fibrillation; on amiodarone and apixaban, history of bilateral PE (2014), chronic abdominal wound with persistent intertrigo, history of COPD (with no history of tobacco abuse) on Trelegy Ellipta and prn albuterol q. 4h prn, chronic hypoxic respiratory failure on 2 L nasal cannula, chronic kidney disease stage IIIb, chronic anemia, history of multiple thyroid nodules, depression with anxiety on fluoxetine, GERD; on pantoprazole, osteoarthritis; with history of T12-L1 spinal fusion (2014), history of osteomyelitis of the cervical spine, recent history multifactorial adult failure to thrive with recent admission here from May 26, 2023 to May 30, 2023 for treatment of ESBL UTI with E. coli with urine culture and blood culture positive for Gram-negative rods treated with IV Merrem with ID consultation by Dr. Ma with patient discharged on 7 days of IM Ertapenem and still with full CODE STATUS with most recent admission here from June 23, 2024 to June 26, 2024 for treatment of recurrent Abdominal Pannus Cellulitis complicated by abnormal UA with Chronic Staghorn Calculus initial treated with IV linezolid and IV meropenem with transition to oral cefazolin in addition to methenamine twice daily with Azo cranberry with patient recently admitted and discharged from [facility] on June due to aortic stenosis and patient needing heart cath for further assessment with the patient developing a fever during her admission to that hospital for which she was given antibiotics which she is apparently now completed who presents to [facility] ER complaining of continued fever and suspected UTI. Ms. Bradley states yesterday she developed a fever up to 100.5 ?F with chills and since she finished her recent abbreviated course of antibiotics with continued clinical decline she decided to come in for further evaluation and treatment as she has developed sepsis quickly in the past with worry for evolving UTI. Apparently, according to the ER physician this patient staghorn calculi cannot be safely removed until she undergoes treatment for her heart conditions so it has been left in place with recurrent severe UTIs and serial readmission. No CT scan was obtained at the time of our first call at approximately 4:45 AM and one was requested before patient KUB safely admitted here to evaluate for possible renal abscess, interstitial pyelonephritis or other severe condition that would contraindicate her being admitted to this institution due to our limited resources and personnel. She denies associated headache, runny nose, sore throat, ear pain, chest pain, shortness of breath, abdominal pain, nausea, vomiting, diarrhea, constipation, dysuria, headache or rash. In the ER she was confirmed to have a Fever of 100.1 ?F noted shortly after admission with Leukocytosis of 20.1 K and a UA positive for evidence of Acute Cystitis; with microscopic hematuria with CT scan of the abdomen/pelvis that revealed marked Left>Right subcutaneous soft tissue edema in the lower ventral abdominal soft tissues and overlying skin thickening consistent with Cellulitis with multiple Right-sided intrarenal stones with a ~1.5 cm stone seen at the Right renal pelvis with no hydronephrosis or significant. Perinephric stranding and no ureteral or bladder stone identified along with similar appearance of bandlike area of collapse, consolidation at the Right>Left lower lobes with either very small right pleural fluid versus pleural thickening not significantly changed from previous. She was then empirically started on IV meropenem and admitted to the PCU for ongoing care for a stay that is expected to extend beyond 2 midnights. [facility] Medical History (Updated 07/10/24 @ 06:[address] Zain Alex, DO) Morbid obesity with BMI of 50.0-59.9, adult Panniculitis Sepsis History of ESBL E. coli infection Multiple drug resistant organism (MDRO) culture positive ESBL (extended spectrum beta-lactamase) producing bacteria infection Chronic kidney disease Bacteremia due to Escherichia coli Morbid obesity CKD (chronic kidney disease), stage IV GERD (gastroesophageal reflux disease) History of venous thromboembolism Anxiety and depression Chronic anemia ROBBI treated with BiPAP UTI (urinary tract infection) Abdominal pannus Open abdominal wall wound Type 2 diabetes mellitus Chronic obstructive pulmonary disease with hypoxia Bilateral pulmonary embolism (07/2014) Postoperative atrial fibrillation (06/2014) Essential hypertension Multiple thyroid nodules Osteomyelitis of cervical spine Home Medications ?Medication ?Instructions ?Recorded ?Last Taken ?Type ergocalciferol (vitamin D2) 1,250 50,000 unit PO MAZA SUPPLEMENT 02/25/20 06/20/24 History mcg (50,000 unit) capsule fluoxetine 20 mg capsule 20 mg PO DAILY DEPRESSION 02/25/20 06/23/24 History rosuvastatin 5 mg tablet (Crestor) 5 mg PO QHS cholesterol 01/16/21 06/22/24 History pantoprazole 40 mg tablet,delayed 40 mg PO DAILY reflux 03/12/21 06/23/24 History release amiodarone 200 mg tablet 200 mg PO DAILY heart rate #0 tabs 02/26/23 06/23/24 Rx albuterol sulfate 90 mcg/actuation 2 inh inhalation Q4H PRN shortness 03/27/23 04/16/23 08:22 History breath activated powder inhaler of breath furosemide 40 mg tablet 40 mg PO DAILY PRN diuretic 03/27/23 06/20/24 History Held on 06/26/24. Instructions: Hold until creatinine returns to baseline vitamin B complex and vitamin C 1 cap PO DAILY vitamin 03/27/23 06/23/24 History no.20-folic acid 1 mg capsule (Renal Caps) sennosides 8.6 mg-docusate sodium 2 tab PO BID PRN constipation 06/25/23 Unknown History 50 mg tablet (Stool Softener-Stimulant Laxative) apixaban 5 mg tablet (Eliquis) 5 mg PO BID 01/28/24 06/23/24 History cranberry fruit concentrate 250 mg 250 mg PO DAILY 01/28/24 06/23/24 History chewable tablet (Azo Cranberry) fluticasone fur. 100 mcg-umeclid 1 ea inhalation DAILY 01/28/24 06/23/24 History 62.5 mcg-vilant 25 mcg inhalat.powder (Trelegy Ellipta) methenamine hippurate 1 gram tablet 1 g PO BID #60 tabs 03/15/24 06/23/24 Rx ascorbic acid (vitamin C) 500 mg 500 mg PO BID 06/23/24 06/23/24 History tablet (Vitamin C) Allergy/AdvReac Type Severity Reaction Status Date / Time piperacillin (From Zosyn) Allergy Mild Angioedema Verified 07/10/24 02:03 tazobactam (From Zosyn) Allergy Mild Angioedema Verified 07/10/24 02:03 aspartame Allergy EDEMA Verified 07/10/24 02:03 ibuprofen Allergy Shortness Verified 07/10/24 02:03 of breath oxycodone HCl (From Percocet) Allergy dizziness Verified 07/10/24 02:03 procaine (From Novocain) Allergy Other Verified 07/10/24 02:03 Family History Father Diabetes Asthma Mother CAD (coronary artery disease) Heart disease Myocardial infarction Hypertension Surgical History History of spinal fusion History of cholecystectomy History of Social History household members: family Smoking Status: Never smoker alcohol intake: never substance use type: does not use ROS ROS Narrative Review of Systems: Constitutional: Patient admits to fever and chills. Eyes: Patient denies change in vision or discharge from eyes. ENT: Patient denies runny nose, sore throat or ear pain. Resp: Patient denies shortness of breath or cough. CV: Patient denies chest pain, palpitations, heart racing or lower extremity edema. GI: Patient denies abdominal pain, nausea, vomiting, diarrhea or constipation. : Patient denies dysuria. MSK: Patient denies arthralgias or myalgias. Skin: Patient denies rash, abscess, wounds or jaundice. Psych: Patient denies symptoms of uncontrolled depression or anxiety. Neuro: Patient denies headache, paresthesias or focal neurologic deficits. Allergy: Patient denies lip swelling, tongue swelling or urticaria. Hematology: Patient admits to easy bleeding and easy bruisability on apixaban. Endocrinology: Patient denies polyuria, polydipsia, polyphagia or heat/cold intolerance. 14 point ROS otherwise negative septa positives noted above in HPI. Vital Signs Vital Signs Vital Signs: 07/10/24 02:03 07/10/24 02:06 07/10/24 02:07 Temperature 98.6 F 98.6 F Temperature Source Oral Oral Pulse Rate 93 93 Respiratory Rate 18 18 Respiratory Effort Normal Non-Labored Respiratory Pattern Normal Blood Pressure 131/51 H 131/51 H Blood Pressure Mean 77 77 Pulse Ox 94 94 Oxygen Delivery Method Nasal Cannula Nasal Cannula Oxygen Flow Rate (L/min) 2 2 07/10/24 03:00 07/10/24 04:00 Temperature 99.6 F H 100.1 F H Temperature Source Oral Oral Pulse Rate 94 93 Respiratory Rate 18 18 Respiratory Effort Respiratory Pattern Blood Pressure 120/81 H 106/79 Blood Pressure Mean 94 88 Pulse Ox 95 98 Oxygen Delivery Method Nasal Cannula Nasal Cannula Oxygen Flow Rate (L/min) 2 2 Physical Exam Const alert, oriented x3 and no apparent distress General Appearance: cooperative HEENT normocephalic, head/scalp atraumatic, hearing grossly normal bilaterally and moist oral mucous membranes Eyes PERRL, EOMs intact bilaterally and conjunctivae normal Neck no lymphadenopathy and supple Resp normal respiratory effort, no retractions, no use of accessory muscles and clear to auscultation bilaterally Cardio regular rate and regular rhythm GI normal to inspection, nondistended, normoactive bowel sounds, soft to palpation, non-tender and non-distended Extremity normal to inspection, full ROM and no clubbing, cyanosis or edema Skin Skin Narrative: Patient denies rash, abscess, wounds or abscess. Neuro oriented x3, CN's II-XII intact bilaterally, moves all extremities and no focal motor deficits Sensorium / Orientation: awake, alert, oriented to person, oriented to place and oriented to time Speech: speech normal Psych affect normal Results Medical Records Data Attestation: I reviewed the patient's medical records Lab / Micro Data Attestation: I reviewed the patient's lab results. 07/10/24 03:11 07/10/24 03:11 Labs: Laboratory Results - last 24 hr 07/10/24 03:11: WBC 20.1 H, RBC 4.10 L, Hgb 11.7 L, Hct 37.4, MCV 91.2, MCH 28.5, MCHC 31.3 L, RDW Std Deviation 49.1 H, RDW Coeff of Ruben 14.9 H, Plt Count 154, MPV 12.3 H, Immature Gran % (Auto) 0.900, Neut % (Auto) 92.1 H, Lymph % (Auto) 2.1 L, [place] % (Auto) 2.7, Eos % (Auto) 2.0, Baso % (Auto) 0.2, Absolute Neuts (auto) 18.5 H, Absolute Lymphs (auto) 0.42 L, Nucleated RBC % 0, Sodium 144, Potassium 4.8, Chloride 104, Carbon Dioxide 28.6, Anion Gap 11, BUN 23 H, Creatinine 1.53 H, Est GFR (MDRD) Non-Af 35 L, BUN/Creatinine Ratio 15.0, Glucose 140 H, Lactic Acid 1.6, Calcium 10.6, Total Bilirubin 0.60, AST 28, ALT 31, Alkaline Phosphatase 117 H, Total Protein 7.0, Albumin 3.9, Globulin 3.2, Albumin/Globulin Ratio 1.2, Urine Color Brown, Urine Clarity Cloudy, Urine pH 6.0, Ur Specific [place] 1.010, Urine Protein 100 H, Urine Glucose (UA) Normal, Urine Ketones Negative, Urine Occult Blood 250 H, Urine Nitrite Negative, Urine Bilirubin Negative, Urine Urobilinogen Normal, Ur Leukocyte Esterase 500 H, Urine RBC > 100 SEEN, Urine WBC >100 SEEN, Ur Squamous Epith Cells 0 SEEN, Urine Bacteria 1+, Urine Mucus 0 SEEN Imaging Radiology Impression Chest X-Ray 07/10/24 03:25 IMPRESSION: No evidence of acute disease. Reading Location: [facility] Assessment & Plan Assessment/Plan (1) Acute cystitis with hematuria: (2) Panniculitis: (3) Leukocytosis: QUALIFIERS: Leukocytosis type: unspecified Qualified Code(s): D72.829 - Elevated white blood cell count, unspecified (4) Lactic acidosis: (5) Fever: QUALIFIERS: Fever type: unspecified Qualified Code(s): R50.9 - Fever, unspecified (6) Multiple drug resistant organism (MDRO) culture positive: (7) Morbid obesity with BMI of 50.0-59.9, adult: (8) Poor personal hygiene: PLAN: Plan 1. Acute Cystitis; with microscopic hematuria with Fever of 100.1 ?F noted shortly after admission with Leukocytosis of 20.1 K but with normal lactate and blood pressure not convincing for sepsis at this time with a corresponding CT scan of the abdomen/pelvis that revealed ... - Admit to PCU. Continue empiric IV meropenem begun in the ER and await culture and sensitivity data. Give ondansetron IV prn for nausea and vomiting. Give acetaminophen prn for pain or fever. 2. Most recent admission here from June 23, 2024 to June 26, 2024 for treatment of recurrent Abdominal Pannus Cellulitis complicated by abnormal UA with Staghorn Calculus initial treated with IV linezolid and IV meropenem with transition to oral cefazolin in addition to methenamine twice daily with Azo cranberry with patient now having Recurrent Abdominal Pannus Cellulitis on CT likely due to Poor Personal Hygiene practices complicating #1 - Noted with patient on IV meropenem for #1 which should hopefully cover this issue as well. Nystatin powder was ordered to cover superimposed intertriginous candidiasis. 3. Recently admitted and discharged from [facility] on June due to aortic stenosis and patient needing heart cath for further assessment with the patient developing a fever during her admission to that hospital for which she was given antibiotics which she has apparently now completed compounding #1 & #2 - Noted with patient stating antibiotics were prescribed for 4. Admission here from May 26, 2023 to May 30, 2023 for treatment of ESBL UTI with E. coli with urine culture and blood culture positive for Gram-negative rods treated with IV Merrem with ID consultation by Dr. Ma with patient discharged on 7 days of IM Ertapenem and still with full CODE STATUS in the setting of multifactorial Adult [id number]-fu-Zqihyt at that time adding to the medical complexity of #1 - #3 - Noted. 5. Morbid (class III) obesity; with BMI of 53.7 this admission plus obstructive sleep apnea; on BiPAP adding to the burden of disease outlined from #1 - #4 - Weight loss will be recommended. Check TSH. This complicates her case and may hamper recovery. 6. Paroxysmal atrial fibrillation; on amiodarone and apixaban - Current regimen to continue as before. 7. Essential hypertension; on furosemide - Hold scheduled furosemide in light of #1. Give hydralazine IV prn for systolic blood pressure > 160 mmHg. 8. Hyperlipidemia; on rosuvastatin - Resume statin. 9. Diabetes mellitus type 2; of unknown control currently not on treatment plus diabetic neuropathy - Check HgbA1c to assess status. 10. History of bilateral PE (2014) - Noted. 11. Chronic abdominal wound with persistent intertrigo - Stable. 12. History of COPD (with no history of tobacco abuse) on Trelegy Ellipta and prn albuterol q. 4h prn - Stable with no evidence of acute flare at this time. Maintain home regimen. 13. Chronic hypoxic respiratory failure on 2 L nasal cannula - Stable. 14. CKD; stage IIIb - Stable with serum creatinine of 1.53 mg/dL, BUN of 23 mg/dL and eGFR of 35 mL/min present on admission. 15. Chronic anemia - Stable with hemoglobin of 11.7 g/dL and MCV of 91.2 fL present on admission. 16. History of multiple thyroid nodules - Noted. 17. Depression with anxiety on fluoxetine - Resume current therapy. 18. GERD; on pantoprazole - Maintain PPI. 19. Osteoarthritis; with history of T12-L1 spinal fusion (2014), history of osteomyelitis of the cervical spine - We will give acetaminophen prn according to scale outlined in #1. 20. DVT prophylaxis - Patient already on apixaban for #6 which will be continued. Total time: Approximately (but not less than) 75 minutes. Charges/Coding Visit Charges Inpatient E&M: 05250 Init Hosp L3
--- NOTE | 2024-07-10 04:54 | CT_ITS ---
PROCEDURE: ABDOMEN/PELVIS WITHOUT CONT 07/10/2024 REASON FOR EXAM: PAIN TECHNIQUE: Abdomen and pelvis CT without intravenous contrast. Noncontrast technique limits evaluation of the abdominal and pelvic viscera. Coronal and Sagittal reconstruction series were provided. One or more dose reduction techniques were used (e.g., Automated exposure control, adjustment of the mA and/or kV according to patient size, use of iterative reconstruction technique). PATIENT PREPARATION: Per protocol ORAL CONTRAST TYPE: None. COMPARISON: 02/25/2024 FINDINGS: Similar appearance of bandlike area of collapse, consolidation at the lswly-opagkqc-jdam-left lower lobes and either very small right pleural fluid versus pleural thickening again noted, not significantly changed. Mild proximal LAD coronary calcification. Trace pericardial fluid. Beam hardening, spray artifact from thoracolumbar hardware and cage device. The liver, adrenal glands, pancreas and spleen appear within limits. The gallbladder is not identified. There is bilateral cortical renal thinning suggested. Multiple right-sided intrarenal stones with a 1.5 cm stone seen at the right renal pelvis. No hydronephrosis or significant appearing perinephric stranding. No ureteral or bladder stone identified. The bladder appears mostly collapsed. Abdominal aorta appears within limits on noncontrast imaging. Aortoiliac atherosclerotic calcification seen. No bowel dilation or free air. Normal caliber appendix without secondary signs. Diverticulosis without diverticulitis. The adnexa, uterus and bladder appear within limits on noncontrast imaging. No free fluid seen. Marked hfpk-jnvyczj-mjoy-right subcutaneous soft tissue edema lower ventral abdominal soft tissues and overlying skin thickening for example axial 243, correlate for possible cellulitis. The most inferior portion is excluded from imaging. CT/Abdomen/Pelvis without Cont IMPRESSION: Marked gkvn-tjjwuzq-meuk-right subcutaneous soft tissue edema lower ventral abd ominal soft tissues and overlying skin thickening for example axial 243, correlate for possible cellulitis. The most inferior por tion is excluded from imaging. Multiple right-sided intrarenal stones with a 1.5 cm stone seen at the right re nal pelvis. No hydronephrosis or significant appearing perinephric stranding. No ureteral or bladder stone identified. Similar appearance of bandlike area of collapse, consolidation at the right-gre coec-dxro-iwdq lower lobes and either very small right pleural fluid versus pleural thickening again noted, not significantly ch anged. Reading Location: [id number]
[2024-07-10] MEDS: Meropenem 2 GM in 0.9% Normal Saline (100mL Bag) 100 ML IV ×2 (05:11→22:06)
[2024-07-10 06:32] LABS: Hemoglobin A1c 5.4 % (<=5.6)
[2024-07-10] MEDS: 0.9% Normal Saline (1000mL) 1,000 ML 125 ML IV (07:59)
[2024-07-10] MEDS: Budesonide Respules 0.5 MG/2 ML AMPUL.NEB. INHALATION ×2 (08:28→18:55)
[2024-07-10] MEDS: Ipratropium/Albuterol Sulfate 3 ML AMPUL.NEB INHALATION ×3 (08:28→18:55)
--- NOTE | 2024-07-10 09:05 | PCM.PN.HOSP ---
Reason for Visit Reason for Visit: Diagnoses Elevated white blood cell count, unspecified (07/10/24) Morbid (severe) obesity due to excess calories (07/10/24) Acidosis, unspecified (07/10/24) Panniculitis, unspecified (07/10/24) Acute cystitis with hematuria (07/10/24) Very low level of personal hygiene (07/10/24) Fever, unspecified (07/10/24) Resistance to multiple antibiotics (07/10/24) Body mass index [BMI] 50.0-59.9, adult (07/10/24) Subjective Subjective Patient is a 78-year-old lady who presented to the emergency department with generalized malaise as well as fever. Patient's evaluation came back consistent with panniculitis as well as UTI. Of note patient been discharged from the Coumadin clinic 2 days prior following ARIANNA for aortic valve stenosis. She also has history of staghorn calculi Objective Data Objective Data Vital Signs: Vital Signs Temp Pulse Resp BP Pulse Ox O2 Del Method O2 Flow Rate 98.7 F 81 16 115/33 L 93 Nasal Cannula 2 07/10/24 06:46 07/10/24 08:30 07/10/24 08:30 07/10/24 06:46 07/10/24 07:39 07/10/24 08:15 07/10/24 08:15 Oxygen Flow Rate (L/min) 2 Oxygen Delivery Method Nasal Cannula Weight: 128.5 kg Body Mass Index (BMI) 44.4 Intake & Output: Intake and Output for Last 24 Hours 07/08/24 07/09/24 07/10/24 23:59 23:59 23:59 Intake Total 140 / 140 Balance 140 / 140 Lab / Micro Data 07/10/24 03:11 07/10/24 03:11 Labs: Laboratory Results - last 24 hr 07/10/24 03:11: WBC 20.1 H, RBC 4.10 L, Hgb 11.7 L, Hct 37.4, MCV 91.2, MCH 28.5, MCHC 31.3 L, RDW Std Deviation 49.1 H, RDW Coeff of Ruben 14.9 H, Plt Count 154, MPV 12.3 H, Immature Gran % (Auto) 0.900, Neut % (Auto) 92.1 H, Lymph % (Auto) 2.1 L, [place] % (Auto) 2.7, Eos % (Auto) 2.0, Baso % (Auto) 0.2, Absolute Neuts (auto) 18.5 H, Absolute Lymphs (auto) 0.42 L, Nucleated RBC % 0, Sodium 144, Potassium 4.8, Chloride 104, Carbon Dioxide 28.6, Anion Gap 11, BUN 23 H, Creatinine 1.53 H, Est GFR (MDRD) Non-Af 35 L, BUN/Creatinine Ratio 15.0, Glucose 140 H, Hemoglobin A1c 5.4, Lactic Acid 1.6, Calcium 10.6, Magnesium 2.0, Total Bilirubin 0.60, AST 28, ALT 31, Alkaline Phosphatase 117 H, Total Protein 7.0, Albumin 3.9, Globulin 3.2, Albumin/Globulin Ratio 1.2, TSH 5.060 H, Urine Color Brown, Urine Clarity Cloudy, Urine pH 6.0, Ur Specific [place] 1.010, Urine Protein 100 H, Urine Glucose (UA) Normal, Urine Ketones Negative, Urine Occult Blood 250 H, Urine Nitrite Negative, Urine Bilirubin Negative, Urine Urobilinogen Normal, Ur Leukocyte Esterase 500 H, Urine RBC > 100 SEEN, Urine WBC >100 SEEN, Ur Squamous Epith Cells 0 SEEN, Urine Bacteria 1+, Urine Mucus 0 SEEN Micro: Microbiology 07/10/24 03:11 Mucosa - Nose SARS-CoV-2, Influenza & RSV (PCR) - Final Radiography Diagnostic Testing: Radiology Impression Chest X-Ray 07/10/24 03:25 IMPRESSION: No evidence of acute disease. Reading Location: [facility] Abdomen/Pelvis CT 07/10/24 04:54 IMPRESSION: Marked pkmw-gluzmmi-yiop-right subcutaneous soft tissue edema lower ventral abdominal soft tissues and overlying skin thickening for example axial 243, correlate for possible cellulitis. The most inferior portion is excluded from imaging. Multiple right-sided intrarenal stones with a 1.5 cm stone seen at the right renal pelvis. No hydronephrosis or significant appearing perinephric stranding. No ureteral or bladder stone identified. Similar appearance of bandlike area of collapse, consolidation at the ydhvv-iofhqvb-laef-left lower lobes and either very small right pleural fluid versus pleural thickening again noted, not significantly changed. Reading Location: [facility] Physical Exam Narrative GENERAL: cooperative but appears ill looking HEENT: Atraumatic; normocephalic EYES; Anicteric, Normal Conjunctiva NECK; supple, normal thyroid, RESPIRATORY: Diminished to auscultation CARDIOVASCULAR: Regular S1 S2, GI: soft, normoactive bowel sounds, : No Renal angle tenderness; EXTREMITIES: bipedal edema, no clubbing, MUSCULOSKELETAL: no muscle wasting NEURO: Awake; no lateralizing signs. SKIN: Extensive erythema and warmth involving the lower abdominal pannus PSYCH; Flat affect Assessment & Plan Assessment/Plan (1) Acute cystitis with hematuria: (2) Panniculitis: PLAN: Plan Patient is a 78-year-old lady who presented to the emergency department with generalized malaise as well as fever. Patient's evaluation came back consistent with panniculitis as well as UTI. Of note patient been discharged from the Coumadin clinic 2 days prior following ARIANNA for aortic valve stenosis. She also has history of staghorn calculi 1. Sepsis Without endorgan dysfunction secondary to combination of panniculitis as well as acute cystitis. Treatment initiated with broad-spectrum antibiotic therapy IV fluids after cultures have been sent 2. Acute complicated UTI ? Patient has history of staghorn calculi as well as MDRO UTIs. Patient was started on meropenem repeat cultures sent 3. Acute panniculitis ? CT of the abdomen and pelvis obtained did show Marked evkj-oqcjvcs-cgig-right subcutaneous soft tissue edema lower ventral abdominal soft tissues and overlying skin thickening. Patient was started on meropenem on admission added vancomycin 4. Intertriginous candidiasis. ? Contributing to # 3. Nystatin powder ordered 5. Class III obesity with BMI of 44.4 ? Complicating care weight loss advised 6. Aortic stenosis ? Patient underwent recent evaluation at the [facility] with ARIANNA. Results currently not available plan is for patient to follow-up with her primary accounts adjustable clerk following her discharge 7. Dyslipidemia -Patient is on statin therapy, continued at home dose 8. Depression with anxiety ? Patient is on fluoxetine, continued 9. Paroxysmal atrial fibrillation - on amiodarone and apixaban continued 10. Hypertension ? Blood pressure controlled, home medications continued with dose adjustment as needed 11. GERD ? Patient is on PPI did continue 12. Obstructive sleep apnea ? PAP therapy at night 13. COPD ? Currently not in exacerbation. Patient is on Trelegy Ellipta as well as albuterol as needed 14. Chronic hypoxic respiratory failure ? Secondary to COPD. Patient is on baseline oxygen 2 L continuous 15. Anemia ? Secondary to chronic disorder monitoring H&H and transfuse if patient becomes symptomatic or hemoglobin falls below 7 16. Chronic kidney disease stage III ? Patient creatinine at baseline. She has been fluctuating between 1.3-1.6 17. DVT prophylaxis ? On apixaban Time spent in the patient's overall evaluation,decision-making process, review of diagnostic data, adjustment of management, discussion with other providers, nursing nursing and ancillary staff involved in patient's care documentation, 55 Minutes Charges/Coding Visit Charges Inpatient E&M: 68105 Init Hosp L3
[2024-07-10] MEDS: Amiodarone 200 MG Tablet PO (11:54)
[2024-07-10] MEDS: APIXABAN 5 MG TABLET PO ×2 (11:54→22:00)
[2024-07-10] MEDS: Lactobacillis Acidophilus 1 CAP PO ×4 (11:54→22:00)
[2024-07-10] MEDS: Folic Acid/Vitamin B Comp W-C 1 Capsule 1 CAP PO (11:55)
[2024-07-10] MEDS: Pantoprazole Sodium 40 MG Tablet PO (11:55)
[2024-07-10] MEDS: Methenamine Hippurate 1 GM Tablet PO ×2 (11:55→22:00)
[2024-07-10] MEDS: FLUoxetine 20 MG Capsule PO (11:55)
[2024-07-10] MEDS: Ascorbic Acid 500 MG Tablet PO ×2 (11:56→22:00)
[2024-07-10] MEDS: Nystatin Powder 15gm Bottle 1 APPLIC TOPICAL (11:56)
[2024-07-10] MEDS: Acetaminophen 325 MG Tablet 650 MG PO ×2 (12:03→18:20)
--- NOTE | 2024-07-10 12:22 | CASEMGMT ---
Readmission note: Index: 06/23-06/26/24. Dx: Abdominal Pannus Cellulitis Current: 07/10/24. Dx: UTI, Leukocytosis, Lactic Acidosis, Staghorn Calculi From index admission, the pt discharged home with her daughter's support and a new Rx for Cefdinir. Pt wears home oxygen through [employer] (2L at rest and 3L with exertion). Pt was also recommended to follow up with her PCP and ID. See H&P. Between admissions, the pt was also admitted to [facility] and was discharged on 07/08/24 due to aortic stenosis and the pt requiring a heart catheter. The pt re-presents to [facility] on the above date complaining of continued fever and suspected UTI. See H&P for CT findings. Pt was admitted to the PCU for further management. This RN LAWRENCE also completed the DC f/u phone call, see intervention. STUART BRAVO to pt room at this time. Pt is A&Ox4 and is sitting up in bed. Pt's daughter is currently on speakerphone. The patient and the patient's daughter stated that the patient was able to take her ATB and all of her other medications as prescribed. Pt reports that she was wearing her oxygen accordingly. Pt states that she was able to follow up with her PCP virtually. Pt states that she did not have time to follow up with ID. Moving forward, pt states that she plans to return home with her daughter at the time of DC. Pt declined PT today due to being too tired. Pt states that she has plenty of DME at home. Per the hospitalist, the pt will be admitted through the weekend. At this time, the pt declines the need for HH. Pt states that she has an outstanding order for OP PT, prescribed by . Pt states that she plans to hold onto this until she is stable enough to utilize it. Pt's daughter agrees. CM to follow for an increase in oxygen demands. Pt and pt's daughter declined further questions, concerns, or needs at this time. Crow POLLOCK RN, CM
[2024-07-10] MEDS: Atorvastatin Calcium 10 MG Tablet PO (22:00)
[2024-07-11] VITALS (9 sets, daily range): BP systolic 99–114; BP diastolic 39–46; PULSE 62–77; RESP 16–22; TEMP 35.6–36.9; O2SAT 96–99; BMI 45.3
[2024-07-11 04:33] LABS: Absolute Lymphocyte Count 1.01 X10^3/uL (0.83-4.51); Basophil# 0.05 X10^3/uL; Basophil% 0.3 % (0-1); Eosinophil# 0.31 X10^3/uL; Hemoglobin 10.1 g/dL (12.0-15.0); Lymphocyte # 1.01 X10^3/ul (0.83-4.51); Lymphocyte % 6.6 % (19-41); Mean Corp Hgb Conc 31.6 g/dL (32-36); Mean Corpuscular Hgb 28.9 pg (27.0-32.0); Mean Corpuscular Volume 91.4 fL (81-99); Mean Platelet Vol. 12.7 fl (6.2-12.0); Monocyte# 0.96 X10^3/uL; Monocyte% 6.2 % (0-10); NRBC Flagged by Analyzer 0 % (0-5); Neutrophil # 12.96 X10^3/uL (2.7-7.7); Neutrophil % 84.2 % (47-70); Platelet Count 144 K/mm3 (150-450); RBC Distribution Width CV 15.6 % (11.6-14.6); White Blood Count 15.4 K/mm3 (4.4-11.0)
[2024-07-11 05:01] LABS: ALB/GLOB Ratio 1.2 RATIO (0.9-2.4); AST(SGOT) 20 U/L (<=31); Alanine Aminotransfer ALT/SGPT 24 U/L (<=34); Albumin, Serum 3.2 g/dL (3.4-4.8); Alkaline Phosphatase 79 U/L (35-104); Anion Gap 10 (5-15); BUN 32 mg/dL (4-19); BUN/Creat Ratio 18.4 RATIO (10-20); Calcium,Total 9.9 mg/dL (7.6-11.0); Carbon Dioxide 27.5 mmol/L (21.0-32.0); Chloride 103 mmol/L (98-108); Creatinine, Serum 1.73 mg/dL (0.70-1.20); EST Glomerular Filtration Rate 30 (>60); Estimated Creatinine Clearance 37.99 ml/min (50-250); Globulin 2.6 g/dL (2.2-4.2); Glucose 90 mg/dL (70-99); Phosphorus 3.3 mg/dL (2.7-4.5); Protein, Total 5.9 g/dL (5.9-8.4); Sodium Level 140 mmol/L (133-145); Total Bilirubin 0.69 mg/dL (0.00-1.30)
--- NOTE | 2024-07-11 07:34 | PN.HOSP_ITS ---
Reason for Visit Reason for Visit: Diagnoses Elevated white blood cell count, unspecified (07/10/24) Morbid (severe) obesity due to excess calories (07/10/24) Acidosis, unspecified (07/10/24) Panniculitis, unspecified (07/10/24) Acute cystitis with hematuria (07/10/24) Very low level of personal hygiene (07/10/24) Fever, unspecified (07/10/24) Resistance to multiple antibiotics (07/10/24) Body mass index [BMI] 50.0-59.9, adult (07/10/24) Subjective Subjective patient so far afebrile for the past 24 hours however WBC count still remain elevated. Objective Data Objective Data Vital Signs: Vital Signs Temp Pulse Resp BP Pulse Ox O2 Del Method O2 Flow Rate 96.1 F L 65 18 102/44 L 96 Bi-pap 2 07/11/24 03:40 07/11/24 03:40 07/11/24 03:40 07/11/24 03:40 07/11/24 03:40 07/11/24 03:40 07/11/24 03:40 Oxygen Flow Rate (L/min) 2 Oxygen Delivery Method Bi-pap Weight: 131.5 kg Body Mass Index (BMI) 45.3 Intake & Output: Intake and Output for Last 24 Hours 07/09/24 07/10/24 07/11/24 23:59 23:59 23:59 Intake Total 1340 / 1580 380 / 380 Output Total 500 / 500 Balance 840 / 1080 380 / 380 Lab / Micro Data 07/11/24 03:16 07/11/24 03:16 Labs: Laboratory Results - last 24 hr 07/11/24 03:16: WBC 15.4 H, RBC 3.50 L, Hgb 10.1 L, Hct 32.0 L, MCV 91.4, MCH 28.9, MCHC 31.6 L, RDW Std Deviation 51.0 H, RDW Coeff of Ruben 15.6 H, Plt Count 144 L, MPV 12.7 H, Immature Gran % (Auto) 0.700, Neut % (Auto) 84.2 H, Lymph % (Auto) 6.6 L, [place] % (Auto) 6.2, Eos % (Auto) 2.0, Baso % (Auto) 0.3, Absolute Neuts (auto) 13.0 H, Absolute Lymphs (auto) 1.01, Nucleated RBC % 0, Sodium 140, Potassium 4.0, Chloride 103, Carbon Dioxide 27.5, Anion Gap 10, BUN 32 H, C reatinine 1.73 H, Estim Creat Clear Calc 37.99 L, Est GFR (MDRD) Non-Af 30 L, BUN/Creatinine Ratio 18.4, Glucose 90, Calcium 9.9, Phosphorus 3.3, Total Bilirubin 0.69, AST 20, ALT 24, Alkaline Phosphatase 79, Total Protein 5.9, A lbumin 3.2 L, Globulin 2.6, Albumin/Globulin Ratio 1.2 Micro: Microbiology 07/10/24 03:11 Mucosa - Nose SARS-CoV-2, Influenza & RSV (PCR) - Final Physical Exam Narrative GENERAL: cooperative but appears ill looking HEENT: Atraumatic; normocephalic EYES; Anicteric, Normal Conjunctiva NECK; supple, normal thyroid, RESPIRATORY: Diminished to auscultation CARDIOVASCULAR: Regular S1 S2, GI: soft, normoactive bowel sounds, : No Renal angle tenderness; EXTREMITIES: bipedal edema, no clubbing, MUSCULOSKELETAL: no muscle wasting NEURO: Awake; no lateralizing signs. SKIN: Area of erythema involving the lower abdominal pannus improving PSYCH; Flat affect Assessment & Plan Assessment/Plan (1) Acute cystitis with hematuria: (2) Panniculitis: PLAN: Plan Patient is a 78-year-old lady who presented to the emergency department with generalized malaise as well as fever. Patient's evaluation came back consistent with panniculitis as well as UTI. Of note patient been discharged from the Coumadin clinic 2 days prior following ARIANNA for aortic valve stenosis. She also has history of staghorn calculi 1. Sepsis Without endorgan dysfunction secondary to combination of panniculitis as well as acute cystitis. Treatment initiated with broad-spectrum antibiotic therapy IV fluids after cultures have been sent ? 07/11/2024; patient so far afebrile for the past 24 hours however WBC count still remain elevated. 2. Acute complicated UTI ? Patient has history of staghorn calculi as well as MDRO UTIs. Patient was started on meropenem repeat cultures sent ? 07/11/2024; patient urine cultures on admission had apparently not been sent new requisition placed. 3. Acute panniculitis ? CT of the abdomen and pelvis obtained did show Marked gohu-dxrobdn-immc-right subcutaneous soft tissue edema lower ventral abdominal soft tissues and overlying skin thickening. Patient was started on meropenem on admission added vancomycin 4. Intertriginous candidiasis. ? Contributing to # 3. Nystatin powder ordered 5. Class III obesity with BMI of 44.4 ? Complicating care weight loss advised 6. Aortic stenosis ? Patient underwent recent evaluation at the [facility] with ARIANNA. Results currently not available plan is for patient to follow-up with her primary court advocate following her discharge 7. Dyslipidemia -Patient is on statin therapy, continued at home dose 8. Depression with anxiety ? Patient is on fluoxetine, continued 9. Paroxysmal atrial fibrillation - on amiodarone and apixaban continued 10. Hypertension ? Blood pressure controlled, home medications continued with dose adjustment as needed 11. GERD ? Patient is on PPI did continue 12. Obstructive sleep apnea ? PAP therapy at night 13. COPD ? Currently not in exacerbation. Patient is on Trelegy Ellipta as well as albuterol as needed 14. Chronic hypoxic respiratory failure ? Secondary to COPD. Patient is on baseline oxygen 2 L continuous 15. Anemia ? Secondary to chronic disorder monitoring H&H and transfuse if patient becomes symptomatic or hemoglobin falls below 7 16. Chronic kidney disease stage III ? Patient creatinine at baseline. She has been fluctuating between 1.3-1.6 ? 07/11/2024 slight rise in patient creatinine we will continue with monitoring 17. DVT prophylaxis ? On apixaban Charges/Coding Visit Charges Inpatient E&M: 35986 Subs Hosp L2
[2024-07-11] MEDS: Budesonide Respules 0.5 MG/2 ML AMPUL.NEB. INHALATION ×2 (07:39→19:57)
[2024-07-11] MEDS: Ipratropium/Albuterol Sulfate 3 ML AMPUL.NEB INHALATION ×3 (07:39→19:56)
[2024-07-11] MEDS: Pantoprazole Sodium 40 MG Tablet PO (09:24)
[2024-07-11] MEDS: FLUoxetine 20 MG Capsule PO (09:24)
[2024-07-11] MEDS: Folic Acid/Vitamin B Comp W-C 1 Capsule 1 CAP PO (09:24)
[2024-07-11] MEDS: Ascorbic Acid 500 MG Tablet PO ×2 (09:24→21:03)
[2024-07-11] MEDS: Lactobacillis Acidophilus 1 CAP PO ×2 (09:24→21:03)
[2024-07-11] MEDS: APIXABAN 5 MG TABLET PO ×2 (09:24→21:03)
[2024-07-11] MEDS: Methenamine Hippurate 1 GM Tablet PO ×2 (09:25→21:03)
[2024-07-11] MEDS: Ergocalciferol 1.25 MG (50, 000 UNIT) Capsule PO (09:25)
[2024-07-11] MEDS: Amiodarone 200 MG Tablet PO (09:25)
[2024-07-11] MEDS: 0.9% Saline Lock 10 ML Syringe IV ×2 (09:28→21:03)
[2024-07-11] MEDS: Meropenem 2 GM in 0.9% Normal Saline (100mL Bag) 100 ML IV ×2 (09:29→21:02)
[2024-07-11] MEDS: Atorvastatin Calcium 10 MG Tablet PO (21:03)
[2024-07-12] VITALS (9 sets, daily range): BP systolic 110–125; BP diastolic 37–58; PULSE 62–83; RESP 16–18; TEMP 36.1–36.6; O2SAT 96–100; BMI 45.9
[2024-07-12 05:25] LABS: Phosphorus 3.1 mg/dL (2.7-4.5)
[2024-07-12] MEDS: Budesonide Respules 0.5 MG/2 ML AMPUL.NEB. INHALATION ×2 (07:38→19:04)
[2024-07-12] MEDS: Ipratropium/Albuterol Sulfate 3 ML AMPUL.NEB INHALATION ×3 (07:38→19:04)
--- NOTE | 2024-07-12 08:03 | PN.HOSP_ITS ---
Reason for Visit Reason for Visit: Diagnoses Elevated white blood cell count, unspecified (07/10/24) Morbid (severe) obesity due to excess calories (07/10/24) Acidosis, unspecified (07/10/24) Panniculitis, unspecified (07/10/24) Acute cystitis with hematuria (07/10/24) Very low level of personal hygiene (07/10/24) Fever, unspecified (07/10/24) Resistance to multiple antibiotics (07/10/24) Body mass index [BMI] 50.0-59.9, adult (07/10/24) Subjective Subjective Patient blood cultures so far negative to date. Urine cultures pending. Requested for a.m. labs CBC as well as BMP Objective Data Objective Data Vital Signs: Vital Signs Temp Pulse Resp BP Pulse Ox O2 Del Method O2 Flow Rate 97 F L 62 16 120/50 L 98 Nasal Cannula 2 07/12/24 03:15 07/12/24 07:38 07/12/24 07:38 07/12/24 03:15 07/12/24 07:38 07/12/24 07:38 07/12/24 07:38 Oxygen Flow Rate (L/min) 2 Oxygen Delivery Method Nasal Cannula Weight: 133 kg Body Mass Index (BMI) 45.9 Intake & Output: Intake and Output for Last 24 Hours 07/10/24 07/11/24 07/12/24 23:59 23:59 23:59 Intake Total 1340 / 1580 1432.57 / 1432.57 Output Total 500 / 500 Balance 840 / 1080 1432.57 / 1432.57 Lab / Micro Data 07/11/24 03:16 07/11/24 03:16 Labs: Laboratory Results - last 24 hr 07/12/24 04:20: Phosphorus 3.1 Micro: Microbiology 07/10/24 03:11 Mucosa - Nose SARS-CoV-2, Influenza & RSV (PCR) - Final Physical Exam Narrative GENERAL: cooperative but appears ill looking HEENT: Atraumatic; normocephalic EYES; Anicteric, Normal Conjunctiva NECK; supple, normal thyroid, RESPIRATORY: Diminished to auscultation CARDIOVASCULAR: Regular S1 S2, GI: soft, normoactive bowel sounds, : No Renal angle tenderness; EXTREMITIES: bipedal edema, no clubbing, MUSCULOSKELETAL: no muscle wasting NEURO: Awake; no lateralizing signs. SKIN: Area of erythema involving the lower abdominal pannus improving PSYCH; Flat affect Assessment & Plan Assessment/Plan (1) Acute cystitis with hematuria: (2) Panniculitis: PLAN: Plan Patient is a 78-year-old lady who presented to the emergency department with generalized malaise as well as fever. Patient's evaluation came back consistent with panniculitis as well as UTI. Of note patient been discharged from the Coumadin clinic 2 days prior following ARIANNA for aortic valve stenosis. She also has history of staghorn calculi 1. Sepsis Without endorgan dysfunction secondary to combination of panniculitis as well as acute cystitis. Treatment initiated with broad-spectrum antibiotic therapy IV fluids after cultures have been sent ? 07/11/2024; patient so far afebrile for the past 24 hours however WBC count still remain elevated. 2. Acute complicated UTI ? Patient has history of staghorn calculi as well as MDRO UTIs. Patient was started on meropenem repeat cultures sent ? 07/11/2024; patient urine cultures on admission had apparently not been sent new requisition placed. ? 07/12/2024; urine culture still pending 3. Acute panniculitis ? CT of the abdomen and pelvis obtained did show Marked evlb-rdaefrv-axvd-right subcutaneous soft tissue edema lower ventral abdominal soft tissues and overlying skin thickening. Patient was started on meropenem on admission added vancomycin ? 07/12/2024; clinical improvement in the area of skin infection 4. Intertriginous candidiasis. ? Contributing to # 3. Nystatin powder ordered 5. Class III obesity with BMI of 44.4 ? Complicating care weight loss advised 6. Aortic stenosis ? Patient underwent recent evaluation at the [facility] with ARIANNA. Results currently not available plan is for patient to follow-up with her primary production proofreader following her discharge 7. Dyslipidemia -Patient is on statin therapy, continued at home dose 8. Depression with anxiety ? Patient is on fluoxetine, continued 9. Paroxysmal atrial fibrillation - on amiodarone and apixaban continued 10. Hypertension ? Blood pressure controlled, home medications continued with dose adjustment as needed 11. GERD ? Patient is on PPI did continue 12. Obstructive sleep apnea ? PAP therapy at night 13. COPD ? Currently not in exacerbation. Patient is on Trelegy Ellipta as well as albuterol as needed 14. Chronic hypoxic respiratory failure ? Secondary to COPD. Patient is on baseline oxygen 2 L continuous 15. Anemia ? Secondary to chronic disorder monitoring H&H and transfuse if patient becomes symptomatic or hemoglobin falls below 7 16. Chronic kidney disease stage III ? Patient creatinine at baseline. She has been fluctuating between 1.3-1.6 ? 07/11/2024 slight rise in patient creatinine we will continue with monitoring 17. DVT prophylaxis ? On apixaban Time spent in the patient's overall evaluation,decision-making process, review of diagnostic data, adjustment of management, discussion with other providers, nursing nursing and ancillary staff involved in patient's care documentation, 35 Minutes Charges/Coding Visit Charges Inpatient E&M: 67751 Subs Hosp L2
[2024-07-12] MEDS: Lactobacillis Acidophilus 1 CAP PO ×2 (09:51→22:57)
[2024-07-12] MEDS: Folic Acid/Vitamin B Comp W-C 1 Capsule 1 CAP PO (09:52)
[2024-07-12] MEDS: Pantoprazole Sodium 40 MG Tablet PO (09:52)
[2024-07-12] MEDS: Amiodarone 200 MG Tablet PO (09:52)
[2024-07-12] MEDS: APIXABAN 5 MG TABLET PO ×2 (09:52→22:57)
[2024-07-12] MEDS: Methenamine Hippurate 1 GM Tablet PO ×2 (09:52→22:57)
[2024-07-12] MEDS: FLUoxetine 20 MG Capsule PO (09:53)
[2024-07-12] MEDS: Ascorbic Acid 500 MG Tablet PO ×2 (09:53→22:58)
[2024-07-12] MEDS: 0.9% Saline Lock 10 ML Syringe IV ×2 (09:54→21:27)
[2024-07-12] MEDS: Meropenem 2 GM in 0.9% Normal Saline (100mL Bag) 100 ML IV ×2 (09:59→21:28)
[2024-07-12 10:57] LABS: Absolute Lymphocyte Count 0.58 X10^3/uL (0.83-4.51); Absolute Neutrophil Count 5.5 X10^3/uL (2.0-7.7); Basophil# 0.05 X10^3/uL; Basophil% 0.7 % (0-1); Eosinophil# 0.51 X10^3/uL; Eosinophils% 6.8 % (0-5); Hematocrit 32.4 % (37-47); Hemoglobin 10.2 g/dL (12.0-15.0); Lymphocyte # 0.58 X10^3/ul (0.83-4.51); Lymphocyte % 7.8 % (19-41); Mean Corp Hgb Conc 31.5 g/dL (32-36); Mean Corpuscular Hgb 28.9 pg (27.0-32.0); Mean Corpuscular Volume 91.8 fL (81-99); Mean Platelet Vol. 11.6 fl (6.2-12.0); Monocyte# 0.74 X10^3/uL; Monocyte% 9.9 % (0-10); NRBC Flagged by Analyzer 0 % (0-5); Neutrophil # 5.53 X10^3/uL (2.7-7.7); Neutrophil % 74.1 % (47-70); POSITIVE DIFFERENTIAL YES; Platelet Count 142 K/mm3 (150-450); RBC Distribution Width CV 15.6 % (11.6-14.6); RBC Distribution Width SD 51.8 fl (35.1-43.9); Red Blood Count 3.53 M/mm3 (4.2-5.4); White Blood Count 7.5 K/mm3 (4.4-11.0)
[2024-07-12 11:35] LABS: Anion Gap 10 (5-15); BUN 33 mg/dL (4-19); BUN/Creat Ratio 21.7 RATIO (10-20); Carbon Dioxide 28.1 mmol/L (21.0-32.0); Chloride 103 mmol/L (98-108); EST Glomerular Filtration Rate 36 (>60); Glucose 114 mg/dL (70-99); Magnesium 2.2 mg/dL (1.5-2.2); Phosphorus 2.5 mg/dL (2.7-4.5); Potassium 4.3 mmol/L (3.3-5.1); Sodium Level 141 mmol/L (133-145)
[2024-07-12] MEDS: Atorvastatin Calcium 10 MG Tablet PO (22:57)
[2024-07-13 03:04] VITALS: BMI 44.6
[2024-07-13 03:40] VITALS: PULSE 57
[2024-07-13 04:39] VITALS: BP 103/52; PULSE 57; RESP 18; TEMP 36.2; O2SAT 97
[2024-07-13 04:40] VITALS: O2SAT 97
[2024-07-13] MEDS: Ipratropium/Albuterol Sulfate 3 ML AMPUL.NEB INHALATION (06:47)
[2024-07-13] MEDS: Budesonide Respules 0.5 MG/2 ML AMPUL.NEB. INHALATION (06:47)
[2024-07-13 06:48] VITALS: PULSE 70; RESP 18; O2SAT 95
[2024-07-13 07:18] LABS: Absolute Lymphocyte Count 0.73 X10^3/uL (0.83-4.51); Basophil# 0.05 X10^3/uL; Eosinophil# 0.65 X10^3/uL; Eosinophils% 12.6 % (0-5); Hematocrit 34.1 % (37-47); Hemoglobin 10.7 g/dL (12.0-15.0); Lymphocyte # 0.73 X10^3/ul (0.83-4.51); Lymphocyte % 14.2 % (19-41); Mean Corp Hgb Conc 31.4 g/dL (32-36); Mean Corpuscular Hgb 28.8 pg (27.0-32.0); Mean Corpuscular Volume 91.9 fL (81-99); Mean Platelet Vol. 12.5 fl (6.2-12.0); Monocyte# 0.62 X10^3/uL; Monocyte% 12.1 % (0-10); NRBC Flagged by Analyzer 0 % (0-5); Neutrophil # 3.03 X10^3/uL (2.7-7.7); Neutrophil % 58.9 % (47-70); Platelet Count 155 K/mm3 (150-450); RBC Distribution Width CV 15.2 % (11.6-14.6); RBC Distribution Width SD 51.1 fl (35.1-43.9); Red Blood Count 3.71 M/mm3 (4.2-5.4); White Blood Count 5.1 K/mm3 (4.4-11.0)
[2024-07-13 07:44] LABS: Anion Gap 9 (5-15); BUN 29 mg/dL (4-19); BUN/Creat Ratio 21.6 RATIO (10-20); Calcium,Total 9.9 mg/dL (7.6-11.0); Carbon Dioxide 26.4 mmol/L (21.0-32.0); Chloride 107 mmol/L (98-108); Creatinine, Serum 1.34 mg/dL (0.70-1.20); EST Glomerular Filtration Rate 41 (>60); Estimated Creatinine Clearance 49.24 ml/min (50-250); Glucose 93 mg/dL (70-99); Sodium Level 142 mmol/L (133-145)
--- NOTE | 2024-07-13 07:46 | DS.PCM_ITS ---
Providers Date of Admission: 07/10/24 Date of Discharge: 07/13/24 Primary Care Physician: Dr. Sandrine Mireles MD Reason For Visit: UTI,LEUKOCYTOSIS,LACTIC ACIDOSIS WITH KNOWN STAGHO Diagnosis Discharge Diagnosis (1) Acute cystitis with hematuria: Status: Acute Code(s): N30.01 - Acute cystitis with hematuria (2) Panniculitis: Status: Acute Code(s): M79.3 - Panniculitis, unspecified Plan Patient is a 78-year-old lady who presented to the emergency department with generalized malaise as well as fever. Patient's evaluation came back consistent with panniculitis as well as UTI. Of note patient been discharged from the Coumadin clinic 2 days prior following ARIANNA for aortic valve stenosis. She also has history of staghorn calculi 1. Sepsis Without endorgan dysfunction secondary to combination of panniculitis as well as acute cystitis. Treatment initiated with broad-spectrum antibiotic therapy IV fluids after cultures have been sent ? 07/11/2024; patient so far afebrile for the past 24 hours however WBC count still remain elevated. 2. Acute complicated UTI ? Patient has history of staghorn calculi as well as MDRO UTIs. Patient was started on meropenem repeat cultures sent ? 07/11/2024; patient urine cultures on admission had apparently not been sent new requisition placed. ? 07/12/2024; urine culture still pending ? 07/12/2024; patient urine cultures came back positive for yeast. Patient given a dose of fluconazole 200 mg x 1 prior to the 3. Acute panniculitis ? CT of the abdomen and pelvis obtained did show Marked osom-vmyifml-nssd-right subcutaneous soft tissue edema lower ventral abdominal soft tissues and overlying skin thickening. Patient was started on meropenem on admission added vancomycin ? 07/12/2024; clinical improvement in the area of skin infection ? 07/13/2024 prescription written for cefdinir on discharge 4. Intertriginous candidiasis. ? Contributing to # 3. Nystatin powder ordered 5. Class III obesity with BMI of 44.4 ? Complicating care weight loss advised 6. Aortic stenosis ? Patient underwent recent evaluation at the [facility] with ARIANNA. Results currently not available plan is for patient to follow-up with her primary medicaid billing specialist following her discharge 7. Dyslipidemia -Patient is on statin therapy, continued at home dose 8. Depression with anxiety ? Patient is on fluoxetine, continued 9. Paroxysmal atrial fibrillation - on amiodarone and apixaban continued 10. Hypertension ? Blood pressure controlled, home medications continued with dose adjustment as needed 11. GERD ? Patient is on PPI did continue 12. Obstructive sleep apnea ? PAP therapy at night 13. COPD ? Currently not in exacerbation. Patient is on Trelegy Ellipta as well as albuterol as needed 14. Chronic hypoxic respiratory failure ? Secondary to COPD. Patient is on baseline oxygen 2 L continuous 15. Anemia ? Secondary to chronic disorder monitoring H&H and transfuse if patient becomes symptomatic or hemoglobin falls below 7 16. Chronic kidney disease stage III ? Patient creatinine at baseline. She has been fluctuating between 1.3-1.6 ? 07/11/2024 slight rise in patient creatinine we will continue with monitoring 17. DVT prophylaxis ? On apixaban Time spent in the patient's overall evaluation,decision-making process, review of diagnostic data, adjustment of management, discussion with other providers, nursing nursing and ancillary staff involved in patient's care documentation, 35 Minutes Medications at Discharge Home Medications ergocalciferol (vitamin D2) 1,250 mcg (50,000 unit) capsule 50,000 unit PO MAZA SUPPLEMENT 02/25/20 fluoxetine 20 mg capsule 20 mg PO DAILY DEPRESSION 02/25/20 rosuvastatin 5 mg tablet (Crestor) 5 mg PO QHS cholesterol 01/16/21 pantoprazole 40 mg tablet,delayed release 40 mg PO DAILY reflux 03/12/21 amiodarone 200 mg tablet 200 mg PO DAILY heart rate #0 tabs 02/26/23 albuterol sulfate 90 mcg/actuation breath activated powder inhaler 2 inh inhalation Q4H PRN shortness of breath 03/27/23 furosemide 40 mg tablet 40 mg PO DAILY PRN diuretic 03/27/23 vitamin B complex and vitamin C no.20-folic acid 1 mg capsule (Renal Caps) 1 cap PO DAILY vitamin 03/27/23 sennosides 8.6 mg-docusate sodium 50 mg tablet (Stool Softener-Stimulant Laxative) 2 tab PO BID PRN constipation 06/25/23 apixaban 5 mg tablet (Eliquis) 5 mg PO BID 01/28/24 cranberry fruit concentrate 250 mg chewable tablet (Azo Cranberry) 250 mg PO DAILY 01/28/24 fluticasone fur. 100 mcg-umeclid 62.5 mcg-vilant 25 mcg inhalat.powder (Trelegy Ellipta) 1 ea inhalation DAILY 01/28/24 methenamine hippurate 1 gram tablet 1 g PO BID #60 tabs 03/15/24 ascorbic acid (vitamin C) 500 mg tablet (Vitamin C) 500 mg PO BID 06/23/24 cefdinir 300 mg capsule 300 mg PO BID #14 caps 07/13/24 furosemide 20 mg tablet (Lasix) 20 mg PO DAILY #90 tabs 07/13/24 Physical Exam Narrative GENERAL: cooperative but appears ill looking HEENT: Atraumatic; normocephalic EYES; Anicteric, Normal Conjunctiva NECK; supple, normal thyroid, RESPIRATORY: Diminished to auscultation CARDIOVASCULAR: Regular S1 S2, GI: soft, normoactive bowel sounds, : No Renal angle tenderness; EXTREMITIES: bipedal edema, no clubbing, MUSCULOSKELETAL: no muscle wasting NEURO: Awake; no lateralizing signs. SKIN: Area of erythema involving the lower abdominal pannus improving PSYCH; Flat affect Weight / BMI Weight Weight: 129.4 kg Body Mass Index (BMI) 44.6 ABG / Lab / Microbiology Data 07/13/24 06:49 07/13/24 06:49 Laboratory: Laboratory Results - last 24 hr 07/12/24 10:45: WBC 7.5, RBC 3.53 L, Hgb 10.2 L, Hct 32.4 L, MCV 91.8, MCH 28.9, MCHC 31.5 L, RDW Std Deviation 51.8 H, RDW Coeff of Ruben 15.6 H, Plt Count 142 L, MPV 11.6, Immature Gran % (Auto) 0.700, Neut % (Auto) 74.1 H, Lymph % (Auto) 7.8 L, [place] % (Auto) 9.9, Eos % (Auto) 6.8 H, Baso % (Auto) 0.7, Absolute Neuts (auto) 5.5, Absolute Lymphs (auto) 0.58 L, Nucleated RBC % 0, Sodium 141, Potassium 4.3, Chloride 103, Carbon Dioxide 28.1, Anion Gap 10, BUN 33 H, C reatinine 1.50 H, Estim Creat Clear Calc 44.70 L, Est GFR (MDRD) Non-Af 36 L, B UN/Creatinine Ratio 21.7 H, Glucose 114 H, Calcium 10.0, Phosphorus 2.5 L, Magnesium 2.2 07/13/24 06:49: WBC 5.1, RBC 3.71 L, Hgb 10.7 L, Hct 34.1 L, MCV 91.9, MCH 28.8, MCHC 31.4 L, RDW Std Deviation 51.1 H, RDW Coeff of Ruben 15.2 H, Plt Count 155, M PV 12.5 H, Immature Gran % (Auto) 1.200 H, Neut % (Auto) 58.9, Lymph % (Auto) 14.2 L, [place] % (Auto) 12.1 H, Eos % (Auto) 12.6 H, Baso % (Auto) 1.0, Absolute Neuts (auto) 3.0, Absolute Lymphs (auto) 0.73 L, Nucleated RBC % 0, Sodium 142, Potassium 4.0, Chloride 107, Carbon Dioxide 26.4, Anion Gap 9, BUN 29 H, C reatinine 1.34 H, Estim Creat Clear Calc 49.24 L, Est GFR (MDRD) Non-Af 41 L, B UN/Creatinine Ratio 21.6 H, Glucose 93, Calcium 9.9 Microbiology: Microbiology 07/11/24 02:47 Urine, Clean Catch Urine Culture - Preliminary Yeast Like Organism Gram negative flora 07/10/24 04:45 Blood Culture (Wb) - Anticubital Left Blood Culture - Preliminary No growth in 48 hours. 07/10/24 05:10 Blood Culture (Wb) - Anticubital Left Blood Culture - Preliminary No growth in 48 hours. 07/10/24 03:11 Mucosa - Nose SARS-CoV-2, Influenza & RSV (PCR) - Final D/C Instructions Discharge Diet: No restrictions Discharge Activity: Return to Normal Activity Call your doctor if you observe: Fever of 101 or Higher, Shortness of breath, Fainting spells and Chest pain DC O2, CPAP, BIPAP Needs Home O2 Discharge instructions: No Meaningful Use Info Meaningful Use Meaningful Use Diagnoses (Choose all that apply): None applicable Ischemic Stroke Statin Dosing Therapy Reference: STATIN DOSE THERAPY REFERENCE: * Patients > 75 years receive moderate or high dose statin therapy. * Patients 75 years or YOUNGER should receive HIGH intensity statin dose unless contraindicated. You will be required to document reason for non-treatment if statin daily dose does not meet guidelines. HIGH DOSE STATIN THERAPY DAILY Atorvastatin > than or = to 40 mg Rosuvastatin > than or = to 20 mg Amlodipine + Atorvastatin > than or = to 2.5/40 mg Ezetimibe + Simvastatin 10/80 mg Simvastatin 80mg Discharge Plan Admission Admit Date/Time: 07/10/24 05:50 Attending Provider: Zain Conroy Primary Care Provider: Sandrine Mireles Consulting Providers: Zain Alex Discharge Orders/Prescriptions Prescriptions: New cefdinir 300 mg capsule 300 mg PO BID Qty: 14 0RF furosemide [Lasix] 20 mg tablet 20 mg PO DAILY Qty: 90 0RF Continued pantoprazole 40 mg tablet,delayed release (DR/EC) 40 mg PO DAILY ergocalciferol (vitamin D2) 50,000 UNIT capsule 50,000 unit PO MAZA Patient Comments: take 1 capsule by mouth every week on sundays fluoxetine 20 MG capsule 20 mg PO DAILY Patient Comments: depression rosuvastatin [Crestor] 5 mg Tablet 5 mg PO QHS furosemide 40 mg tablet 40 mg PO DAILY PRN (Reason: diuretic) Renal Caps 1 mg capsule 1 cap PO DAILY albuterol sulfate 90 mcg/actuation aerosol powdr breath activated 2 inh inhalation Q4H PRN (Reason: shortness of breath) amiodarone 200 mg Tablet 200 mg PO DAILY Qty: 0 0RF sennosides-docusate sodium [Stool Softener-Stimulant Laxat] 8.6-50 mg Tablet 2 tab PO BID PRN (Reason: constipation) Rx Instructions: Available [id number]. Eliquis 5 mg tablet 5 mg PO BID Trelegy Ellipta 100-62.5-25 mcg blister with device 1 ea INHALATION DAILY Azo Cranberry 250 mg tablet,chewable 250 mg PO DAILY methenamine hippurate 1 gram tablet 1 g PO BID Qty: 60 2RF Rx Instructions: take with vitamin C ascorbic acid (vitamin C) [Vitamin C] 500 mg tablet 500 mg PO BID Referrals / Follow Up: Sandrine Mireles MD [Primary Care Provider] - Within 2 Weeks Disposition Disposition (needs filled in before D/C Order can be placed): Home, Self Care Charges/Coding Visit Charges Inpatient E&M: 55786 Disch Hosp >30min
[2024-07-13 09:31] VITALS: BP 114/40; PULSE 63; RESP 14; TEMP 36.6; O2SAT 98
[2024-07-13] MEDS: Amiodarone 200 MG Tablet PO (09:34)
[2024-07-13] MEDS: Pantoprazole Sodium 40 MG Tablet PO (09:34)
[2024-07-13] MEDS: Methenamine Hippurate 1 GM Tablet PO (09:34)
[2024-07-13] MEDS: Folic Acid/Vitamin B Comp W-C 1 Capsule 1 CAP PO (09:34)
[2024-07-13] MEDS: APIXABAN 5 MG TABLET PO (09:34)
[2024-07-13] MEDS: FLUoxetine 20 MG Capsule PO (09:34)
[2024-07-13] MEDS: Ascorbic Acid 500 MG Tablet PO (09:35)
[2024-07-13] MEDS: Meropenem 2 GM in 0.9% Normal Saline (100mL Bag) 100 ML IV (09:48)
--- NOTE | 2024-07-13 10:07 | CASEMGMT ---
Addendum entered by Antonio Aguayo 07/13/24 13:08: Pt reports that her brother cannot drive her home and that her daughter is still unable to drive her home. Pt inquires about the [facility] Transportation Van. Pt notified that pt needs to be able to get in ans out of the vehicle independently. Pt states that she is able to do this as long as someone gets her W/C ready for her at home. SW notified and is working on getting transportation set up for the pt. [facility] has delivered portability for the pt. Original Note: Pt has an order for DC placed. Pt is adequately saturating at current home o2 orders. Updated home o2 rx not warranted. RN CM to pt room at this time. Pt informed that therapy is recommending HHC. However, pt declines this service. Pt states that she still feels safe returning home with her daughters support and the OP therapy as previously noted. However, pt states that she does not have portable oxygen with her. Pt states that her daughter is unable to pick the pt up now and is unable to bring in the pts portability. Pt states that she is going to call her brother to see if he can pick her up. Pt states that her brother will not be able to bring in the pts oxygen either way. TC to [facility] who states that they can deliver a portable tank to the pts room now. Pt thanks this [facility]VO and denies further DC needs. Pt's RN updated.
--- NOTE | 2024-07-13 10:44 | PHA.DC_ITS ---
Pharmacy [place] Med Rec Counseling Pharmacy Service has performed discharge medication reconciliation and counseling for this patient. Patient requested meds to beds. This [facility] called retail, spoke to Eri and requested delivery. 1. CEFDINIR 300MG PO BID X 7 DAYS 2. LASIX 20MG DAILY, PT TO FOLLOW UP WITH PCP IF SHE SHOULD STILL TAKE PRN LASIX The patient's discharge medication list was reviewed for discrepancies and discrepancies were resolved. The patient was counseled on the following discharge medications and changes in medications for homegoing were reviewed. The Reason for Use, instructions for use, and potential side effects were reviewed for all new medications. The patient's questions regarding all of their medications were answered. The patient was able to verbally demonstrate an understanding of their discharge medications. Medications at Discharge Home Medications ergocalciferol (vitamin D2) 1,250 mcg (50,000 unit) capsule 50,000 unit PO MAZA SUPPLEMENT 02/25/20 fluoxetine 20 mg capsule 20 mg PO DAILY DEPRESSION 02/25/20 rosuvastatin 5 mg tablet (Crestor) 5 mg PO QHS cholesterol 01/16/21 pantoprazole 40 mg tablet,delayed release 40 mg PO DAILY reflux 03/12/21 amiodarone 200 mg tablet 200 mg PO DAILY heart rate #0 tabs 02/26/23 albuterol sulfate 90 mcg/actuation breath activated powder inhaler 2 inh inhalation Q4H PRN shortness of breath 03/27/23 furosemide 40 mg tablet 40 mg PO DAILY PRN diuretic 03/27/23 vitamin B complex and vitamin C no.20-folic acid 1 mg capsule (Renal Caps) 1 cap PO DAILY vitamin 03/27/23 sennosides 8.6 mg-docusate sodium 50 mg tablet (Stool Softener-Stimulant Laxative) 2 tab PO BID PRN constipation 06/25/23 apixaban 5 mg tablet (Eliquis) 5 mg PO BID 01/28/24 cranberry fruit concentrate 250 mg chewable tablet (Azo Cranberry) 250 mg PO DAILY 01/28/24 fluticasone fur. 100 mcg-umeclid 62.5 mcg-vilant 25 mcg inhalat.powder (Trelegy Ellipta) 1 ea inhalation DAILY 01/28/24 methenamine hippurate 1 gram tablet 1 g PO BID #60 tabs 03/15/24 ascorbic acid (vitamin C) 500 mg tablet (Vitamin C) 500 mg PO BID 05/07/25 cefdinir 300 mg capsule 300 mg PO BID #14 caps 07/13/24 furosemide 20 mg tablet (Lasix) 20 mg PO DAILY #90 tabs 07/13/24
[2024-07-13] MEDS: Fluconazole IVPB 200 MG/100 ML BAG 100 MG IV (12:10)
--- NOTE | 2024-07-13 13:26 | CASEMGMT ---
Patient does not have a ride home. [facility] van does not have any availability. SW also does not feel patient would be able to get in and out of the van without help. SW let patient know that SW could arrange transportation via [employer] via wheelchair van, however this would be private pay. Patient's daughter told SW to see what time they could pick her up. BRETT called [employer] and arranged for patient to get picked up at 4:30p. SW let patient know and she was in agreement with this plan. SW let them know the cost would be around $130 and this is only approximate. SW did tell patient that the drivers are not able to help her in and out of the wheelchair. Patient verbalized understanding. BRETT notified patient's RN. BRETT did call [facility] and let them know patient is on 2L of O2, but has her own portable tank. Shana SAL
[2024-07-13 14:14] VITALS: BP 117/50; PULSE 60; RESP 16; TEMP 36.5; O2SAT 98
== END 2024-07-13 16:12 | disposition home or self-care (01) | DRG 690 ==
LOC: ED 06:01 → PCU 06:18
PROVIDERS: Admitting Provider Internal Medicine; Emergency Provider Surgery; PCP Internal Medicine; Visit Provider Internal Medicine
DX: N30.01 Acute cystitis with hematuria (principal); L03.311 Cellulitis of abdominal wall; Z68.43 Body mass index [BMI] 50.0-59.9, adult; J96.11 Chronic respiratory failure with hypoxia; B37.2 Candidiasis of skin and nail; D72.829 Elevated white blood cell count, unspecified; I48.0 Paroxysmal atrial fibrillation; E11.22 Type 2 diabetes mellitus with diabetic chronic kidney disease; J44.9 Chronic obstructive pulmonary disease, unspecified; N18.32 Chronic kidney disease, stage 3b; I35.0 Nonrheumatic aortic (valve) stenosis; I12.9 Hypertensive chronic kidney disease with stage 1 through stage 4 chronic kidney disease, or unspecified chronic kidney disease; G47.33 Obstructive sleep apnea (adult) (pediatric); E78.5 Hyperlipidemia, unspecified; F41.8 Other specified anxiety disorders; K21.9 Gastro-esophageal reflux disease without esophagitis; E66.813 Obesity, class 3; Z11.52 Encounter for screening for COVID-19; B96.20 Unspecified Escherichia coli [E. coli] as the cause of diseases classified elsewhere; Z87.440 Personal history of urinary (tract) infections; Z87.442 Personal history of urinary calculi
CPT/HCPCS: 36415; 71046; 74176; 80048; 80053; 81001; 83036; 83605; 83735; 84100; 84443; 85025; 87040; 87086; 87088; 87631; 93005; 94640; 94668; 97110; 97161; 97166; 97530; 97802; 99252; 99285; J2185; A4216; G0463

== ENCOUNTER 2024-07-28 14:59 | Inpatient (IN) | payer MEDICARE, OTHER, SELFPAY ==
[2024-07-28] VITALS (8 sets, daily range): BP systolic 102–145; BP diastolic 45–61; PULSE 79–89; RESP 16–26; TEMP 36.5–38.8; O2SAT 95–98; BMI 46.0; BMI 44.7
--- NOTE | 2024-07-28 19:06 | RAD_ITS ---
PROCEDURE: CHEST 1 VIEW (PORTABLE) 07/28/2024 REASON FOR EXAM: DYSPNEA AND FEVER TECHNIQUE: Frontal view of the chest. COMPARISON: 07/10/2024 FINDINGS: Prior thoracolumbar fusion. Lungs are clear without consolidation or edema. RAD/Chest 1 View (Portable) IMPRESSION: No radiographic evidence of pneumonia Reading [facility]
--- NOTE | 2024-07-28 19:06 | EKG12_ITS ---
Test Reason : GEN ILL Blood Pressure : */* mmHG Vent. Rate : 88 BPM Atrial Rate : 88 BPM P-R Int : 284 ms QRS Dur : 128 ms QT Int : 398 ms P-R-T Axes : 54 2 16 degrees QTcB Int : 481 ms Sinus rhythm with 1st degree A-V block Right bundle branch block Abnormal ECG Confirmed by Martinez Kramer ([id number]), sports editor FELICIA FERRO ([id number]) on 07/29/2024 10:17:11 AM Referred By: Confirmed By: Martinez Kramer
--- NOTE | 2024-07-28 19:13 | EX.ED.DYSGE1 ---
HPI History of Present Illness Chief Complaint: General Illness Detail of Chief Complaint: Subjective fever and warm red panniculus Informant: patient and family Onset/Context/Timing Onset: Today Context: Sudden Onset Timing: Continuous Quality: Subjective fever with chills. Daughter states she had a fever but does not Location: Panniculus and generalized Current Severity: Moderate Maximum Severity: Moderate Worsened by: Uncertain Relieved by: Patient was hospitalized on broad-spectrum antibiotics. Associated Symptoms Associated Symptoms: Fever, chills and daughter states she does not remember how high her temper Narrative Narrative: Patient is a 78-year-old woman. She was recently admitted to the hospital. She apparently has a staghorn calculi source of her infection. Most recent urine culture revealed yeast not Vanesa albicans and less than 1000 gram-negative rods. This is not indicative or conclusive of urinary tract infection. Patient is concerned because of her red panniculus. Patient denies headache, visual, ocular auditory symptoms. Patient denies neck pain. Patient does complain of shortness of breath with activity. She does have a heart murmur and is scheduled for valve replacement. She apparently completed a course of cefdinir. She is on Eliquis 5 mg twice daily. Patient was septic with last admission. The admitting H&P by the hospitalist and discharge summary was reviewed. The discharge summary was written by Dr. Zain Conroy. Patient has angioedema to Zosyn. Recent Illness/Hospitalization: Yes PFSH [facility], [facility] Medical History Chronic pain BiPAP (biphasic positive airway pressure) dependence COPD (chronic obstructive pulmonary disease) On home oxygen therapy History of ESBL E. coli infection Multiple drug resistant organism (MDRO) culture positive Panniculitis ESBL (extended spectrum beta-lactamase) producing bacteria infection Sepsis Chronic kidney disease Morbid obesity with BMI of 50.0-59.9, adult Bacteremia due to Escherichia coli Morbid obesity CKD (chronic kidney disease), stage IV GERD (gastroesophageal reflux disease) History of venous thromboembolism Anxiety and depression Chronic anemia ROBBI treated with BiPAP UTI (urinary tract infection) Abdominal pannus Open abdominal wall wound Type 2 diabetes mellitus Chronic obstructive pulmonary disease with hypoxia Bilateral pulmonary embolism (07/2014) Postoperative atrial fibrillation (06/2014) Essential hypertension Multiple thyroid nodules Osteomyelitis of cervical spine Home Medications ?Medication ?Instructions ?Recorded ?Last Taken ?Type ergocalciferol (vitamin D2) 1,250 50,000 unit PO MAZA SUPPLEMENT 02/25/20 06/20/24 History mcg (50,000 unit) capsule fluoxetine 20 mg capsule 20 mg PO DAILY DEPRESSION 02/25/20 06/23/24 History rosuvastatin 5 mg tablet (Crestor) 5 mg PO QHS cholesterol 01/16/21 06/22/24 History pantoprazole 40 mg tablet,delayed 40 mg PO DAILY reflux 03/12/21 06/23/24 History release amiodarone 200 mg tablet 200 mg PO DAILY heart rate #0 tabs 02/26/23 06/23/24 Rx albuterol sulfate 90 mcg/actuation 2 inh inhalation Q4H PRN shortness 03/27/23 04/16/23 08:22 History breath activated powder inhaler of breath vitamin B complex and vitamin C 1 cap PO DAILY vitamin 03/27/23 06/23/24 History no.20-folic acid 1 mg capsule (Renal Caps) sennosides 8.6 mg-docusate sodium 2 tab PO BID PRN constipation 06/25/23 Unknown History 50 mg tablet (Stool Softener-Stimulant Laxative) apixaban 5 mg tablet (Eliquis) 5 mg PO BID 01/28/24 06/23/24 History cranberry fruit concentrate 250 mg 250 mg PO DAILY 01/28/24 06/23/24 History chewable tablet (Azo Cranberry) fluticasone fur. 100 mcg-umeclid 1 ea inhalation DAILY 01/28/24 06/23/24 History 62.5 mcg-vilant 25 mcg inhalat.powder (Trelegy Ellipta) methenamine hippurate 1 gram tablet 1 g PO BID #60 tabs 03/15/24 06/23/24 Rx ascorbic acid (vitamin C) 500 mg 500 mg PO BID 06/23/24 06/23/24 History tablet (Vitamin C) furosemide 20 mg tablet (Lasix) 20 mg PO DAILY #90 tabs 07/13/24 Unknown Rx Allergy/AdvReac Type Severity Reaction Status Date / Time piperacillin (From Zosyn) Allergy Mild Angioedema Verified 07/28/24 15:02 tazobactam (From Zosyn) Allergy Mild Angioedema Verified 07/28/24 15:02 aspartame Allergy EDEMA Verified 07/28/24 15:02 ibuprofen Allergy Shortness Verified 07/28/24 15:02 of breath oxycodone HCl (From Percocet) Allergy dizziness Verified 07/28/24 15:02 procaine (From Novocain) Allergy Other Verified 07/28/24 15:02 Family History Father Diabetes Asthma Mother CAD (coronary artery disease) Heart disease Myocardial infarction Hypertension Surgical History History of appendectomy History of spinal fusion History of cholecystectomy History of Social History household members: family Smoking Status: Never smoker alcohol intake: never substance use type: does not use ROS ROS ED Constitutional Constitutional ED: Reports chills and fever(s); Denies sweats Eyes Eyes: Denies blurry vision or change in vision ENT ENT ED: Denies ear pain, rhinorrhea or sore throat Cardiovascular Cardiovascular: Denies chest pain or palpitations Respiratory/Chest Respiratory/Chest: Denies cough, dyspnea or dyspnea on exertion Gastrointestinal Gastrointestinal: Reports abdominal pain; Denies constipation, diarrhea, melena, nausea or vomiting Genitourinary Genitourinary ED: Denies dysuria, hematuria or urinary frequency Musculoskeletal Musculoskeletal: Denies arthralgias, back pain or myalgias Integumentary Denies rash Neurologic Neurologic: Denies headache(s), paresthesias or weakness Psychiatric Psychiatric: Denies anxiety or depression Endocrine Endocrinology: Denies cold intolerance or heat intolerance Hematologic/Lymphatic Hematologic/Lymphatic: Reports systems reviewed and no addt'l complaints, except as documented EXAM Physical Exam Const Vital Signs: 07/28/24 15:00 07/28/24 19:00 07/28/24 19:41 Temperature 97.7 F L 101.3 F H Temperature Source Oral Oral Pulse Rate 89 85 Respiratory Rate 18 24 H Respiratory Pattern Blood Pressure 145/61 H 119/45 L Blood Pressure Mean 89 69 Pulse Ox 98 97 Oxygen Delivery Method Nasal Cannula Nasal Cannula Nasal Cannula Oxygen Flow Rate (L/min) 1 2 3 07/28/24 19:50 07/28/24 20:00 07/28/24 21:00 Temperature 101.3 F H 101.5 F H Temperature Source Oral Oral Pulse Rate 83 89 Respiratory Rate 22 H 24 H Respiratory Pattern Normal Blood Pressure 122/50 H 119/45 L Blood Pressure Mean 74 69 Pulse Ox 97 96 Oxygen Delivery Method Nasal Cannula Nasal Cannula Oxygen Flow Rate (L/min) 2 Constitutional Narrative: Patient does not appear well. She has a significant panniculus. When I entered the room she was sitting on the bedside commode. HEENT HEENT Narrative: Head is atraumatic normocephalic. Ears normal. She is hard of hearing. Mucosas slightly dry. Eyes PERRL and EOMs intact bilaterally General Eye ED: Negative for pale conjunctiva or scleral icterus Neck no lymphadenopathy, supple and no JVD Chest Wall inspection of chest normal and palpation of chest normal Resp normal respiratory effort and clear to auscultation bilaterally Cardio regular rate, regular rhythm, S1 normal heart sound and S2 normal heart sound; Negative for no murmurs GI non-distended and no masses; Negative for non-tender or hepatosplenomegaly GI Narrative: Patient has panniculitis. The area was demarcated. It is a very significant area. The panniculus is erythematous, warm, indurated. Difficult to assess for inguinal lymphadenopathy due to body habitus. Auscultation: normoactive bowel sounds Palpation: soft Back/Spine no CVA tenderness Extremity normal to inspection Neuro oriented x3, CN's II-XII intact bilaterally and no sensory deficits noted Sensorium / Orientation: alert Motor Exam: strength 5/5 throughout Psych mental status grossly normal Skin Skin Narrative: Panniculitis MDM MDM MDM Narrative Medical decision making narrative: Patient has cellulitis of her panniculus. She has no urinary symptoms. Based on most recent admission she did not have a UTI either. She was called the UTI. Blood cultures were negative. Patient did have a UTI June 23 had greater than 100,000 presumed E. coli. Urine was sensitive to cefepime, ciprofloxacin, gentamicin, levofloxacin, meropenem, nitrofurantoin and sulfa. It was also sensitive to Zosyn however she has angioedema to Zosyn. Since patient has significant reaction to penicillins she was treated with levofloxacin per the septic order set for skin infection this will also cover urologic pathogens based on positive culture dated June 23, 2024. History & Record Review Additional record(s) reviewed:: Prior inpatient record, Prior ED visit and Prior labs Lab Data Attestation: I reviewed the patient's lab results. Lab results narrative: White count is elevated 17.7 thousand with shift. H&H is unremarkable. Competence of metabolic panel was elevated BUN/creatinine of 21 and 1.36. Glucose is 123. Hemoglobin is higher than than baseline. Suspect this is due to hemoconcentration from dehydration. BUN and creatinine are at baseline. Labs: Laboratory Results - last 24 hr 07/28/24 07/28/24 19:25 20:27 WBC 17.7 H RBC 4.41 Hgb 12.8 Hct 39.9 MCV 90.5 MCH 29.0 MCHC 32.1 RDW Std Deviation 53.2 H RDW Coeff of Ruben 15.9 H Plt Count 168 MPV 12.1 H Immature Gran % (Auto) 0.600 Neut % (Auto) 93.3 H Lymph % (Auto) 2.5 L [place] % (Auto) 2.9 Eos % (Auto) 0.5 Baso % (Auto) 0.2 Absolute Neuts (auto) 16.5 H Absolute Lymphs (auto) 0.44 L Nucleated RBC % 0 PT 17.4 H INR 1.4 APTT 37.1 H Sodium 142 Potassium 3.9 Chloride 107 Carbon Dioxide 22.5 Anion Gap 13 BUN 21 H Creatinine 1.36 H Est GFR (MDRD) Non-Af 40 L BUN/Creatinine Ratio 15.4 Glucose 123 H Lactic Acid 1.7 Calcium 10.1 Total Bilirubin 0.91 AST 29 ALT 34 Alkaline Phosphatase 101 Total Protein 6.9 Albumin 3.9 Globulin 3.0 Albumin/Globulin Ratio 1.3 Urine Color Lenora Urine Clarity Turbid Urine pH 6.0 Ur Specific [place] 1.015 Urine Protein 100 H Urine Glucose (UA) Normal Urine Ketones Negative Urine Occult Blood 250 H Urine Nitrite Positive H Urine Bilirubin Negative Urine Urobilinogen 1 H Ur Leukocyte Esterase 500 H Urine RBC > 100 SEEN Urine WBC 25-50 SEEN Ur Squamous Epith Cells 0 SEEN Urine Bacteria 3+ Urine Mucus 0 SEEN Urine is consistent with infection. Urine culture was sent. Radiography Diagnostic Testing: Clinical Impression(s) from Imaging Studies Chest X-Ray 07/28/24 19:06 IMPRESSION: No radiographic evidence of pneumonia Reading [facility] Management Discussion w/another healthcare provider: Hospitalist (Case discussed with Dr. Any Oakley. Will add on vancomycin for MRSA coverage.) Treatment and Re-Evaluation :: I was informed the patient had an elevated temperature to 101.3. Discharge Plan Triage Chief Complaint: General Illness ED Provider: Newton Perez Dx/Rx/DC Orders Clinical Impression: Panniculitis, Urinary tract infection, Poor personal hygiene, SIRS (systemic inflammatory response syndrome), Elevated serum creatinine, BMI greater than 40, History of uric acid staghorn calculus Prescriptions: No Action pantoprazole 40 mg tablet,delayed release (DR/EC) 40 mg PO DAILY ergocalciferol (vitamin D2) 50,000 UNIT capsule 50,000 unit PO MAZA Patient Comments: take 1 capsule by mouth every week on sundays fluoxetine 20 MG capsule 20 mg PO DAILY Patient Comments: depression rosuvastatin [Crestor] 5 mg Tablet 5 mg PO QHS Renal Caps 1 mg capsule 1 cap PO DAILY albuterol sulfate 90 mcg/actuation aerosol powdr breath activated 2 inh inhalation Q4H PRN (Reason: shortness of breath) amiodarone 200 mg Tablet 200 mg PO DAILY Qty: 0 0RF sennosides-docusate sodium [Stool Softener-Stimulant Laxat] 8.6-50 mg Tablet 2 tab PO BID PRN (Reason: constipation) Rx Instructions: Available [id number]. Eliquis 5 mg tablet 5 mg PO BID Trelegy Ellipta 100-62.5-25 mcg blister with device 1 ea INHALATION DAILY Azo Cranberry 250 mg tablet,chewable 250 mg PO DAILY methenamine hippurate 1 gram tablet 1 g PO BID Qty: 60 2RF Rx Instructions: take with vitamin C ascorbic acid (vitamin C) [Vitamin C] 500 mg tablet 500 mg PO BID furosemide [Lasix] 20 mg tablet 20 mg PO DAILY Qty: 90 0RF Patient Comments: takes 20 mg every other day but will take 20mg every day if needed Primary Care Provider: Sandrine Mireles Referrals: Sandrine Mireles MD [Primary Care Provider] - Print Language: Frisian Disposition Disposition: [facility]
[2024-07-28 19:40] LABS: Absolute Lymphocyte Count 0.44 X10^3/uL (0.83-4.51); Absolute Neutrophil Count 16.5 X10^3/uL (2.0-7.7); Basophil# 0.04 X10^3/uL; Basophil% 0.2 % (0-1); Eosinophil# 0.08 X10^3/uL; Eosinophils% 0.5 % (0-5); Hematocrit 39.9 % (37-47); Hemoglobin 12.8 g/dL (12.0-15.0); Lymphocyte # 0.44 X10^3/ul (0.83-4.51); Lymphocyte % 2.5 % (19-41); Mean Corp Hgb Conc 32.1 g/dL (32-36); Mean Corpuscular Volume 90.5 fL (81-99); Mean Platelet Vol. 12.1 fl (6.2-12.0); Monocyte# 0.52 X10^3/uL; Monocyte% 2.9 % (0-10); NRBC Flagged by Analyzer 0 % (0-5); Neutrophil # 16.46 X10^3/uL (2.7-7.7); Neutrophil % 93.3 % (47-70); POSITIVE DIFFERENTIAL YES; Platelet Count 168 K/mm3 (150-450); RBC Distribution Width CV 15.9 % (11.6-14.6); RBC Distribution Width SD 53.2 fl (35.1-43.9); Red Blood Count 4.41 M/mm3 (4.2-5.4); White Blood Count 17.7 K/mm3 (4.4-11.0)
[2024-07-28 19:53] LABS: ALB/GLOB Ratio 1.3 RATIO (0.9-2.4); AST(SGOT) 29 U/L (<=31); Alanine Aminotransfer ALT/SGPT 34 U/L (<=34); Albumin, Serum 3.9 g/dL (3.4-4.8); Alkaline Phosphatase 101 U/L (35-104); Anion Gap 13 (5-15); BUN 21 mg/dL (4-19); BUN/Creat Ratio 15.4 RATIO (10-20); Calcium,Total 10.1 mg/dL (7.6-11.0); Carbon Dioxide 22.5 mmol/L (21.0-32.0); Chloride 107 mmol/L (98-108); Creatinine, Serum 1.36 mg/dL (0.70-1.20); EST Glomerular Filtration Rate 40 (>60); Glucose 123 mg/dL (70-99); Potassium 3.9 mmol/L (3.3-5.1); Protein, Total 6.9 g/dL (5.9-8.4); Sodium Level 142 mmol/L (133-145); Total Bilirubin 0.91 mg/dL (0.00-1.30)
[2024-07-28 20:24] LABS: International Normalized Ratio 1.4; Prothrombin Time (Protime)PT. 17.4 SECONDS (11.7-14.9)
[2024-07-28 20:25] LABS: Partial Thromboplast Time 37.1 Seconds (24.1-36.2)
[2024-07-28 20:27] LABS: Lactic Acid 1.7 mmol/L (0.0-2.0)
[2024-07-28 20:31] LABS: Mucous, Urine 0 SEEN /hpf (<or=2+); Squamous Epithelial Cells - UA 0 SEEN /hpf (5-10)
[2024-07-28] MEDS: levoFLOXacin IV 750 MG/150 ML BAG 100 MG IV (20:34)
[2024-07-28 20:38] LABS: Color, Urine Amber (Yellow); Glucose, Dipstick Normal (Normal); Ketone-Dipstick Negative (Negative); Leukocyte Esterase-Dipstick 500 /ul (Negative); Nitrite-Dipstick Positive (Negative); Occult Blood-Urine 250 /ul (Negative); Protein-Dipstick 100 mg/dl (Negative); Specific Gravity, Urine 1.015 (1.002-1.030); Urine Bilirubin Dipstick Negative (Negative); Urine Clarity Turbid (Clear); Urine Urobilinogen 1 mg/dl (Normal)
[2024-07-28] MEDS: Acetaminophen 325 MG Tablet 650 MG PO (20:52)
[2024-07-28 21:12] LABS: Red Blood Cells-Urine > 100 SEEN /hpf (0-5)
[2024-07-28 21:13] LABS: White Blood Cells 25-50 SEEN /hpf (0-5)
[2024-07-28 21:16] LABS: Bacteria 3+ /hpf (None Seen)
--- NOTE | 2024-07-28 21:59 | HP.PCM.HOS_ITS ---
HPI - General General Date of Admission: 07/28/24 Date of Service: 07/28/24 Chief Complaint: Chills/fever/dysuria HPI Narrative CLAIRE PIRES, is a 78 F who presented to the emergency department at [facility] on 07/28/2024 with a chief complaint of fever, chills, and a warm red panniculus. She also has some concomitant dysuria. She had a recent admission here in late June at which time she was discharged on 07/13/2024 and discharged on cefdinir. She completed the antibiotic course about 3 days ago. Culture reviewed and the urine culture revealed yeast that was not Vanesa albicans and less than 100,000 CFU's per high-powered field of gram-negative rods. Patient was predominantly concerned about her red panniculus. She has a small wound underneath the area that she feels may have been getting worse. She has had no headache, chest pain, shortness of breath. She is on chronic oxygen at 2 L and BiPAP with a 2 L bleed. She has brought her machine in for utilization. She does complain of some mild nausea. Vital signs on presentation showed temperature of 97.7, heart rate 89, respiratory was 18, blood pressure was 145/61 and pulse ox was 97% on 2 L nasal cannula. CBC showed a significant leukocytosis with a white count of 17.7 and a left shift having a 93.3% neutrophilia. Coags were abnormal as expected due to her chronic Eliquis use. Her chemistry panel was stable when compared to previous demonstrating CKD stage IIIb. Lactic acid was normal at 1.7. Liver functions are normal. UA showed turbid urine that was positive for nitrates, occult blood, and leuk esterase with 25-50 white blood cells per high-power field and 3+ bacteria. Chest x-ray was unremarkable for any acute findings Patient has angioedema to penicillin so in the emergency department she was given levofloxacin and vancomycin after cultures were obtained. [facility] Medical History Chronic pain BiPAP (biphasic positive airway pressure) dependence COPD (chronic obstructive pulmonary disease) On home oxygen therapy History of ESBL E. coli infection Multiple drug resistant organism (MDRO) culture positive Panniculitis ESBL (extended spectrum beta-lactamase) producing bacteria infection Sepsis Chronic kidney disease Morbid obesity with BMI of 50.0-59.9, adult Bacteremia due to Escherichia coli Morbid obesity CKD (chronic kidney disease), stage IV GERD (gastroesophageal reflux disease) History of venous thromboembolism Anxiety and depression Chronic anemia ROBBI treated with BiPAP UTI (urinary tract infection) Abdominal pannus Open abdominal wall wound Type 2 diabetes mellitus Chronic obstructive pulmonary disease with hypoxia Bilateral pulmonary embolism (07/2014) Postoperative atrial fibrillation (06/2014) Essential hypertension Multiple thyroid nodules Osteomyelitis of cervical spine Home Medications ?Medication ?Instructions ?Recorded ?Last Taken ?Type ergocalciferol (vitamin D2) 1,250 50,000 unit PO MAZA MAZA PPLEMENT 02/25/20 06/20/24 History mcg (50,000 unit) capsule fluoxetine 20 mg capsule 20 mg PO DAILY DEPRESSION 06/23/24 History rosuvastatin 5 mg tablet (Crestor) 5 mg PO QHS cholest donte 01/16/21 06/22/24 History pantoprazole 40 mg tablet,delayed 40 mg PO DAILY reflu x 03/12/21 06/23/24 History release amiodarone 200 mg tablet 200 mg PO DAILY heart rate # 0 tabs 02/26/23 06/23/24 Rx albuterol sulfate 90 mcg/actuation 2 inh inhalation Q4 H PRN shortness 03/27/23 04/16/23 08:22 History breath activated powder inhaler of breath vitamin B complex and vitamin C 1 cap PO DAILY vitamin 03/27/23 06/23/24 History no.20-folic acid 1 mg capsule (Renal Caps) sennosides 8.6 mg-docusate sodium 2 tab PO BID PRN con stipation 06/25/23 Unknown History 50 mg tablet (Stool Softener-Stimulant Laxative) apixaban 5 mg tablet (Eliquis) 5 mg PO BID 01/28/24 History cranberry fruit concentrate 250 mg 250 mg PO DAILY 01/1006/23/24 History chewable tablet (Azo Cranberry) fluticasone fur. 100 mcg-umeclid 1 ea inhalation DAILY 01/28/24 06/23/24 History 62.5 mcg-vilant 25 mcg inhalat.powder (Trelegy Ellipta) methenamine hippurate 1 gram tablet 1 g PO BID #60 tab s 03/15/24 06/23/24 Rx ascorbic acid (vitamin C) 500 mg 500 mg PO BID 5 06/23/24 History tablet (Vitamin C) furosemide 20 mg tablet (Lasix) 20 mg PO DAILY #90 tab s 07/13/24 Unknown Rx Allergy/AdvReac Type Severity Reaction Status Date / Time piperacillin (From Zosyn) Allergy Mild Angioedema Verified 07/28/24 15:02 tazobactam (From Zosyn) Allergy Mild Angioedema Verified 07/28/24 15:02 aspartame Allergy EDEMA Verified 07/28/24 15:02 ibuprofen Allergy Shortness Verified 07/28/24 15:02 of breath oxycodone HCl (From Percocet) Allergy dizziness Verified 07/28/24 15:02 procaine (From Novocain) Allergy Other Verified 07/28/24 15:02 Family History Father Diabetes Asthma Mother CAD (coronary artery disease) Heart disease Myocardial infarction Hypertension Surgical History History of appendectomy History of spinal fusion History of cholecystectomy History of Social History (Updated 07/29/24 @ 01:[address] Any Oakley DO) household members: family and other details: Lives with her daughter housing: house Smoking Status: Never smoker alcohol intake: never substance use type: does not use ROS Constitutional Constitutional: Reports chills, fatigue, fever(s) and weakness; Denies anorexia, change in weight, malaise, night sweats or other Eyes Eyes: Denies blurry vision, change in eye color, change in vision, discharge from eye(s), double vision, erythema, eye pain, loss of vision or other ENT HEENT: Denies abnormal hearing, dysphagia, ear pain, epistaxis, headache(s), hearing loss, nasal congestion, nasal discharge, post nasal drip, sinus pressure, sore throat or other Cardiovascular Cardiovascular: Reports dyspnea on exertion; Denies chest pain, claudication, edema, lightheadedness, orthopnea, palpitations, paroxysmal nocturnal dyspnea, rapid heart rate, syncope or other Respiratory/Chest Respiratory/Chest: Reports shortness of breath with exertion; Denies cough, dyspnea, excessive phlegm production, hemoptysis, productive cough, shortness of breath at rest, wheezing or other Gastrointestinal Gastrointestinal: Reports nausea; Denies abdominal pain, coffee ground emesis, constipation, diarrhea, dyspepsia, hematemesis, hematochezia, loose stools, melena, vomiting or other Genitourinary Genitourinary: Reports dysuria, urinary frequency, urinary incontinence and urinary urgency; Denies burning urination, difficulty urinating, hematuria, nocturia, urinary hesitancy or other Musculoskeletal Musculoskeletal: Denies arthralgias, back pain, joint pain, joint stiffness, joint swelling, myalgias, neck pain or other Integumentary Integumentary: Reports lesions, rash and wounds; Denies dry skin, jaundice, new lesions, pruritus or other Neurologic Neurologic: Denies abnormal gait, abnormal speech, confusion, disequilibrium, dizziness, focal weakness, headache(s), numbness, paresthesias, seizure-like activity, seizures, syncope, tingling, tremor(s) or other Psychiatric Psychiatric: Reports anxiety and depression; Denies homicidal ideation, suicidal ideation or other Endocrine Endocrinology: Denies change in body appearance, cold intolerance, excessive sweating, heat intolerance, polydipsia, polyuria or other Hematologic/Lymphatic Hematologic/Lymphatic: Denies anemia, easy bleeding, easy bruising, lymphadenopathy or other Allergic/Immunologic Allergic/Immunologic: Denies rhinitis, hives, eczemia, asthma or other Vital Signs Vital Signs Vital Signs: 07/28/24 15:00 07/28/24 19:00 07/28/24 19:41 Temperature 97.7 F L 101.3 F H Temperature Source Oral Oral Pulse Rate 89 85 Respiratory Rate 18 24 H Respiratory Pattern Blood Pressure 145/61 H 119/45 L Blood Pressure Mean 89 69 Pulse Ox 98 97 Oxygen Delivery Method Nasal Cannula Nasal Cannula Nasal Cannula Oxygen Flow Rate (L/min) 1 2 3 07/28/24 19:50 07/28/24 20:00 07/28/24 21:00 Temperature 101.3 F H 101.5 F H Temperature Source Oral Oral Pulse Rate 83 89 Respiratory Rate 22 H 24 H Respiratory Pattern Normal Blood Pressure 122/50 H 119/45 L Blood Pressure Mean 74 69 Pulse Ox 97 96 Oxygen Delivery Method Nasal Cannula Nasal Cannula Oxygen Flow Rate (L/min) 2 07/28/24 21:54 Temperature 101.9 F H Temperature Source Pulse Rate 85 Respiratory Rate 26 H Respiratory Pattern Blood Pressure 117/53 L Blood Pressure Mean 74 Pulse Ox 97 Oxygen Delivery Method Oxygen Flow Rate (L/min) Weight Weight: 133.402 kg Body Mass Index (BMI) 46.0 Physical Exam Const alert, oriented x3, no apparent distress and well nourished; Negative for average body habitus or healthy appearing Constitutional Narrative: Morbidly obese, white female, sitting up in bed, appears comfortable, nontoxic, daughter on speaker phone General Appearance: cooperative HEENT normocephalic, head/scalp atraumatic, hearing grossly normal bilaterally and moist oral mucous membranes HEENT Narrative: Mallampati 3, no thrush Eyes EOMs intact bilaterally and conjunctivae normal Eyes Narrative: No scleral icterus Neck supple Neck Narrative: Trachea midline, neck is short and thick, no noted thyroid enlargement Resp normal respiratory effort, no retractions, no use of accessory muscles and No clear to auscultation bilaterally Resp Narrative: Diffusely diminished with very few scattered and expiratory wheezes intermittently Auscultation: wheezes; Negative for crackles or rhonchi Cardio regular rate, regular rhythm, S1 normal heart sound, no rub, no gallops and no clicks; Negative for S2 normal heart sound or no murmurs Cardio Narrative: Patient with a 4 out of 6 systolic murmur loudest at right upper sternal border, soft S2, radiates to carotids bilaterally GI normal to inspection, nondistended, normoactive bowel sounds and soft to palpation GI Narrative: Large panniculus, significant area of erythema, skin is dry, wound noted at the base of the panniculus just in the suprapubic region Extremity Extremity Narrative: Trace to 1+ bilateral lower extremity edema that is chronic in nature, extremities show signs of venous stasis, no clubbing or cyanosis Skin No no wounds, no jaundice, no petechiae and no mottling Skin Narrative: Skin on abdomen is significantly dry and excoriated in places Neuro oriented x3, moves all extremities and no focal motor deficits Speech: speech normal Psych affect normal Psych Narrative: Very pleasant, interacts appropriately Results Lab / Micro Data 07/28/24 19:25 07/28/24 19:25 Labs: Laboratory Results - last 24 hr 07/28/24 19:25: WBC 17.7 H, RBC 4.41, Hgb 12.8, Hct 39.9, MCV 90.5, MCH 29.0, MCHC 32.1, RDW Std Deviation 53.2 H, RDW Coeff of Ruben 15.9 H, Plt Count 168, MPV 12.1 H, Immature Gran % (Auto) 0.600, Neut % (Auto) 93.3 H, Lymph % (Auto) 2.5 L , [place] % (Auto) 2.9, Eos % (Auto) 0.5, Baso % (Auto) 0.2, Absolute Neuts (auto) 16.5 H, Absolute Lymphs (auto) 0.44 L, Nucleated RBC % 0, PT 17.4 H, INR 1.4, A PTT 37.1 H, Sodium 142, Potassium 3.9, Chloride 107, Carbon Dioxide 22.5, Anion Gap 13, BUN 21 H, Creatinine 1.36 H, Est GFR (MDRD) Non-Af 40 L, BUN/Creatinine Ratio 15.4, Glucose 123 H, Lactic Acid 1.7, Calcium 10.1, Total Bilirubin 0.91, AST 29, ALT 34, Alkaline Phosphatase 101, Total Protein 6.9, Albumin 3.9, Globulin 3.0, Albumin/Globulin Ratio 1.3 07/28/24 20:27: Urine Color Lenora, Urine Clarity Turbid, Urine pH 6.0, Ur Specific [place] 1.015, Urine Protein 100 H, Urine Glucose (UA) Normal, Urine Ketones Negative, Urine Occult Blood 250 H, Urine Nitrite Positive H, Urine Bilirubin Negative, Urine Urobilinogen 1 H, Ur Leukocyte Esterase 500 H, Urine RBC > 100 SEEN, Urine WBC 25-50 SEEN, Ur Squamous Epith Cells 0 SEEN, Urine Bacteria 3+, Urine Mucus 0 SEEN Imaging Radiology Impression Chest X-Ray 07/28/24 19:06 IMPRESSION: No radiographic evidence of pneumonia Reading Location: [facility] Assessment & Plan Assessment/Plan (1) Abnormal urinalysis: (2) Panniculitis: (3) Leukocytosis: PLAN: Plan Panniculitis with wound - Check wound culture - Check MRSA PCR and wound - Blood cultures are pending - Consult wound care nurse - Continue antibiotics with meropenem and vancomycin for now - ID consult is pending Abnormal UA - Highly suspicious for urinary tract infection - Culture sent - Blood culture sent - Continue antibiotics as ordered - ID consult is pending Leukocytosis - White count is markedly elevated - Secondary to the above - Continue antibiotics as ordered - Narrow antibiotics as cultures result Fevers - Secondary to the above - Fever curve should improve with appropriate antibiotic therapy Recurrent UTIs - Continue methenamine - ID consultation ROBBI - Continue home BiPAP Severe aortic valve stenosis - Plans are for replacement in the future - Continue outpatient follow-up Chronic hypoxic respiratory failure secondary to COPD - Is on 2 L at baseline - Currently stable on 2 L - Continue scheduled aerosols and as needed nebulizers Vitamin D deficiency - Continue home ergocalciferol History of bilateral PE/DVT - Continue Eliquis History of paroxysmal atrial fibrillation - Currently sinus rhythm - Continue home amiodarone - Continue home Eliquis Essential hypertension/hyperlipidemia - Continue home rosuvastatin - Continue home Lasix GERD Continue PPI CKD stage IIIb - Serum creatinine is stable - Continue home medications - Avoid nephrotoxins as able - Monitor renal function closely with antibiotics Depression - Continue home fluoxetine Morbid obesity - BMI 44.7 - Recommend weight loss - Complicates treatment, prognosis, outcomes DVT prophylaxis - Continue full anticoagulation with Eliquis CODE STATUS - Full code as verified at the time of admission with patient daughter Charges/Coding Visit Charges Inpatient E&M: 85096 Init Hosp L3
[2024-07-28] MEDS: Vancomycin HCl 2,000 MG in 0.9% Normal Saline (500mL Bag) 500 ML 250 MG IV (23:02)
--- NOTE | 2024-07-28 23:20 | CPS ---
Pt has home bipap with 2L bleed in
[2024-07-28] MEDS: APIXABAN 5 MG TABLET PO (23:27)
[2024-07-28] MEDS: Atorvastatin Calcium 10 MG Tablet PO (23:28)
[2024-07-29] VITALS (7 sets, daily range): BP systolic 108–125; BP diastolic 41–53; PULSE 64–84; RESP 16–20; TEMP 37.1–37.4; O2SAT 96–100; BMI 44.8
--- NOTE | 2024-07-29 02:35 | PHA.PHARE_ITS ---
Consult Antibiotic Management Pharmacy has been consulted to manage selected antibiotic: Vancomycin Type of Intervention Type of Consult: New start Labs Labs: Sodium 142 mmol/L (133-145) 07/28/24 19:25 Potassium 3.9 mmol/L (3.3-5.1) 07/28/24 19:25 Chloride 107 mmol/L (98-108) 07/28/24 19:25 Carbon Dioxide 22.5 mmol/L (21.0-32.0) 07/28/24 19:25 Anion Gap 13 (5-15) 07/28/24 19:25 BUN 21 mg/dL (4-19) H 07/28/24 19:25 Creatinine 1.36 mg/dL (0.70-1.20) H 07/28/24 19:25 Est GFR (MDRD) Non-Af 40 (>60) L 07/28/24 19:25 BUN/Creatinine Ratio 15.4 RATIO (10-20) 07/28/24 19:25 Glucose 123 mg/dL (70-99) H 07/28/24 19:25 Dosing Weight Weight used for dosin.6 kg Estimated Creatinine Clearance Estimated Creatinine Clearance: 48.5 Goal Trough Goal Trough: 15-20 mcg/mL Pharmacy Plan for Drug Dosing Pharmacy Plan for Drug Dosing: Pharmacy Service will continue to monitor and adjust dosing as required. 2000MG IN ER, START 1000MG Q12H AND DRAW TROUGH PRIOR TO 4TH DOSE Follow-Up Labs Follow-Up Labs: Trough: Vancomycin Date/Time Labs Ordered Labs to be done on [date and time ordered]: 07/30 @ 1035
[2024-07-29] MEDS: Acetaminophen 500 MG Tablet 1000 MG PO ×2 (06:07→22:02)
[2024-07-29 06:34] LABS: Absolute Lymphocyte Count 0.62 X10^3/uL (0.83-4.51); Absolute Neutrophil Count 11.2 X10^3/uL (2.0-7.7); Basophil# 0.04 X10^3/uL; Basophil% 0.3 % (0-1); Eosinophil# 0.05 X10^3/uL; Eosinophils% 0.4 % (0-5); Hematocrit 33.2 % (37-47); Hemoglobin 10.8 g/dL (12.0-15.0); Lymphocyte # 0.62 X10^3/ul (0.83-4.51); Lymphocyte % 4.9 % (19-41); Mean Corp Hgb Conc 32.5 g/dL (32-36); Mean Corpuscular Hgb 29.3 pg (27.0-32.0); Mean Corpuscular Volume 90.2 fL (81-99); Mean Platelet Vol. 12.5 fl (6.2-12.0); Monocyte# 0.65 X10^3/uL; Monocyte% 5.1 % (0-10); NRBC Flagged by Analyzer 0 % (0-5); Neutrophil # 11.17 X10^3/uL (2.7-7.7); Neutrophil % 88.4 % (47-70); Platelet Count 121 K/mm3 (150-450); RBC Distribution Width CV 15.9 % (11.6-14.6); RBC Distribution Width SD 52.1 fl (35.1-43.9); Red Blood Count 3.68 M/mm3 (4.2-5.4); White Blood Count 12.7 K/mm3 (4.4-11.0)
[2024-07-29 06:56] LABS: ALB/GLOB Ratio 1.3 RATIO (0.9-2.4); AST(SGOT) 20 U/L (<=31); Alanine Aminotransfer ALT/SGPT 28 U/L (<=34); Albumin, Serum 3.1 g/dL (3.4-4.8); Alkaline Phosphatase 73 U/L (35-104); Anion Gap 10 (5-15); BUN 22 mg/dL (4-19); BUN/Creat Ratio 14.9 RATIO (10-20); Calcium,Total 9.3 mg/dL (7.6-11.0); Carbon Dioxide 23.3 mmol/L (21.0-32.0); Chloride 108 mmol/L (98-108); Creatinine, Serum 1.48 mg/dL (0.70-1.20); EST Glomerular Filtration Rate 36 (>60); Estimated Creatinine Clearance 44.63 ml/min (50-250); Globulin 2.4 g/dL (2.2-4.2); Glucose 101 mg/dL (70-99); Magnesium 1.7 mg/dL (1.5-2.2); Phosphorus 2.2 mg/dL (2.7-4.5); Potassium 3.6 mmol/L (3.3-5.1); Protein, Total 5.5 g/dL (5.9-8.4); Sodium Level 142 mmol/L (133-145); Total Bilirubin 0.97 mg/dL (0.00-1.30)
[2024-07-29] MEDS: Ipratropium/Albuterol Sulfate 3 ML AMPUL.NEB INHALATION ×3 (07:16→19:00)
[2024-07-29] MEDS: Budesonide Respules 0.5 MG/2 ML AMPUL.NEB. INHALATION ×2 (07:17→19:00)
--- NOTE | 2024-07-29 08:38 | WOUNDNOTE ---
wound photo: under pannus
[2024-07-29 09:42] LABS: M R Staph aureus DNA By PCR Negative (Negative); Probe Check PASS; Specimen Processing Control PASS
--- NOTE | 2024-07-29 10:07 | PCM.CONS.GEN ---
Assessment & Plan Assessment/Plan (1) Panniculitis: PLAN: UA improved, denies urinary symptoms. Cont vanc/nguyễn for now. Will follow, thank you HPI Consult Data Date of Consult: 07/29/24 HPI Narrative Reason for Consultation: panniculitis HPI Narrative: CLAIRE PIRES, is a 78 F with recurrent uti and panniculitis, recent admit and sent home with cefdinir. Once abx finished, sx returned with redness and tenderness to lower abd. Developed fever and chills, no dysuria. Came to ED, lincoln placed, admitted on vanc/nguyễn, feeling better this AM. Full ROS performed and neg except as noted above. FORMERLY [facility], [facility] Medical History Chronic pain BiPAP (biphasic positive airway pressure) dependence COPD (chronic obstructive pulmonary disease) On home oxygen therapy History of ESBL E. coli infection Multiple drug resistant organism (MDRO) culture positive Panniculitis ESBL (extended spectrum beta-lactamase) producing bacteria infection Sepsis Chronic kidney disease Morbid obesity with BMI of 50.0-59.9, adult Bacteremia due to Escherichia coli Morbid obesity CKD (chronic kidney disease), stage IV GERD (gastroesophageal reflux disease) History of venous thromboembolism Anxiety and depression Chronic anemia ROBBI treated with BiPAP UTI (urinary tract infection) Abdominal pannus Open abdominal wall wound Type 2 diabetes mellitus Chronic obstructive pulmonary disease with hypoxia Bilateral pulmonary embolism (07/2014) Postoperative atrial fibrillation (06/2014) Essential hypertension Multiple thyroid nodules Osteomyelitis of cervical spine Home Medications ?Medication ?Instructions ?Recorded ?Last Taken ?Type ergocalciferol (vitamin D2) 1,250 50,000 unit PO MAZA SUPPLEMENT 02/25/20 06/20/24 History mcg (50,000 unit) capsule fluoxetine 20 mg capsule 20 mg PO DAILY DEPRESSION 02/25/20 06/23/24 History rosuvastatin 5 mg tablet (Crestor) 5 mg PO QHS cholesterol 01/16/21 06/22/24 History pantoprazole 40 mg tablet,delayed 40 mg PO DAILY reflux 03/12/21 06/23/24 History release amiodarone 200 mg tablet 200 mg PO DAILY heart rate #0 tabs 02/26/23 06/23/24 Rx albuterol sulfate 90 mcg/actuation 2 inh inhalation Q4H PRN shortness 03/27/23 04/16/23 08:22 History breath activated powder inhaler of breath vitamin B complex and vitamin C 1 cap PO DAILY vitamin 03/27/23 06/23/24 History no.20-folic acid 1 mg capsule (Renal Caps) sennosides 8.6 mg-docusate sodium 2 tab PO BID PRN constipation 06/25/23 Unknown History 50 mg tablet (Stool Softener-Stimulant Laxative) apixaban 5 mg tablet (Eliquis) 5 mg PO BID 01/28/24 06/23/24 History cranberry fruit concentrate 250 mg 250 mg PO DAILY 01/28/24 06/23/24 History chewable tablet (Azo Cranberry) fluticasone fur. 100 mcg-umeclid 1 ea inhalation DAILY 01/28/24 06/23/24 History 62.5 mcg-vilant 25 mcg inhalat.powder (Trelegy Ellipta) methenamine hippurate 1 gram tablet 1 g PO BID #60 tabs 03/15/24 06/23/24 Rx ascorbic acid (vitamin C) 500 mg 500 mg PO BID 06/23/24 06/23/24 History tablet (Vitamin C) furosemide 20 mg tablet (Lasix) 20 mg PO DAILY #90 tabs 07/13/24 Unknown Rx Allergy/AdvReac Type Severity Reaction Status Date / Time piperacillin (From Zosyn) Allergy Mild Angioedema Verified 07/28/24 15:02 tazobactam (From Zosyn) Allergy Mild Angioedema Verified 07/28/24 15:02 aspartame Allergy EDEMA Verified 07/28/24 15:02 ibuprofen Allergy Shortness Verified 07/28/24 15:02 of breath oxycodone HCl (From Percocet) Allergy dizziness Verified 07/28/24 15:02 procaine (From Novocain) Allergy Other Verified 07/28/24 15:02 Family History Father Diabetes Asthma Mother CAD (coronary artery disease) Heart disease Myocardial infarction Hypertension Surgical History History of appendectomy History of spinal fusion History of cholecystectomy History of Social History (Updated 07/29/24 @ 01:[address] Any Adin, DO) household members: family and other details: Lives with her daughter housing: house Smoking Status: Never smoker alcohol intake: never substance use type: does not use Physical Exam Const alert, oriented x3 and no apparent distress General Appearance: cooperative HEENT normocephalic and head/scalp atraumatic Eyes PERRL and EOMs intact bilaterally Neck supple and No nodes Resp normal air movement and clear to auscultation bilaterally Cardio regular rate and regular rhythm GI soft to palpation GI Narrative: mild soreness and redness over abd pannus Extremity General Extremity: edema Skin Skin Narrative: no other rash Neuro CN's II-XII intact bilaterally Lab / Micro Data Attestation: I reviewed the patient's lab results. 07/29/24 06:00 07/29/24 06:00 Labs: Laboratory Results - last 24 hr 07/28/24 19:25: WBC 17.7 H, RBC 4.41, Hgb 12.8, Hct 39.9, MCV 90.5, MCH 29.0, MCHC 32.1, RDW Std Deviation 53.2 H, RDW Coeff of Ruben 15.9 H, Plt Count 168, MPV 12.1 H, Immature Gran % (Auto) 0.600, Neut % (Auto) 93.3 H, Lymph % (Auto) 2.5 L, [place] % (Auto) 2.9, Eos % (Auto) 0.5, Baso % (Auto) 0.2, Absolute Neuts (auto) 16.5 H, Absolute Lymphs (auto) 0.44 L, Nucleated RBC % 0, PT 17.4 H, INR 1.4, APTT 37.1 H, Sodium 142, Potassium 3.9, Chloride 107, Carbon Dioxide 22.5, Anion Gap 13, BUN 21 H, Creatinine 1.36 H, Est GFR (MDRD) Non-Af 40 L, BUN/Creatinine Ratio 15.4, Glucose 123 H, Lactic Acid 1.7, Calcium 10.1, Total Bilirubin 0.91, AST 29, ALT 34, Alkaline Phosphatase 101, Total Protein 6.9, Albumin 3.9, Globulin 3.0, Albumin/Globulin Ratio 1.3 07/28/24 20:27: Urine Color Lenora, Urine Clarity Turbid, Urine pH 6.0, Ur Specific [place] 1.015, Urine Protein 100 H, Urine Glucose (UA) Normal, Urine Ketones Negative, Urine Occult Blood 250 H, Urine Nitrite Positive H, Urine Bilirubin Negative, Urine Urobilinogen 1 H, Ur Leukocyte Esterase 500 H, Urine RBC > 100 SEEN, Urine WBC 25-50 SEEN, Ur Squamous Epith Cells 0 SEEN, Urine Bacteria 3+, Urine Mucus 0 SEEN 07/29/24 06:00: WBC 12.7 H, RBC 3.68 L, Hgb 10.8 L, Hct 33.2 L, MCV 90.2, MCH 29.3, MCHC 32.5, RDW Std Deviation 52.1 H, RDW Coeff of Ruben 15.9 H, Plt Count 121 L, MPV 12.5 H, Immature Gran % (Auto) 0.900, Neut % (Auto) 88.4 H, Lymph % (Auto) 4.9 L, [place] % (Auto) 5.1, Eos % (Auto) 0.4, Baso % (Auto) 0.3, Absolute Neuts (auto) 11.2 H, Absolute Lymphs (auto) 0.62 L, Nucleated RBC % 0, Sodium 142, Potassium 3.6, Chloride 108, Carbon Dioxide 23.3, Anion Gap 10, BUN 22 H, Creatinine 1.48 H, Estim Creat Clear Calc 44.63 L, Est GFR (MDRD) Non-Af 36 L, BUN/Creatinine Ratio 14.9, Glucose 101 H, Calcium 9.3, Phosphorus 2.2 L, Magnesium 1.7, Total Bilirubin 0.97, AST 20, ALT 28, Alkaline Phosphatase 73, Total Protein 5.5 L, Albumin 3.1 L, Globulin 2.4, Albumin/Globulin Ratio 1.3, MRSA (PCR) Negative Micro: Microbiology 07/29/24 00:00 Wound - Abdominal Skin and Soft Tissue MRSA/MSSA (PCR - Final Imaging Radiology Impression Chest X-Ray 07/28/24 19:06 IMPRESSION: No radiographic evidence of pneumonia Reading [facility]
[2024-07-29] MEDS: Meropenem 1 GM in 0.9% Normal Saline (100mL MB+) 100 ML IV ×2 (10:09→21:48)
[2024-07-29] MEDS: Folic Acid/Vitamin B Comp W-C 1 Capsule 1 CAP PO (10:10)
[2024-07-29] MEDS: Furosemide 20 MG Tablet PO (10:10)
[2024-07-29] MEDS: FLUoxetine 20 MG Capsule PO (10:10)
[2024-07-29] MEDS: Methenamine Hippurate 1 GM Tablet PO ×2 (10:10→22:03)
[2024-07-29] MEDS: APIXABAN 5 MG TABLET PO ×2 (10:10→22:01)
[2024-07-29] MEDS: Ammonium Lactate 225 gm Bottle 1 APPLIC TOPICAL ×2 (10:10→22:01)
[2024-07-29] MEDS: Ascorbic Acid 500 MG Tablet PO ×2 (10:10→22:02)
[2024-07-29] MEDS: Pantoprazole Sodium 40 MG Tablet PO (10:10)
[2024-07-29] MEDS: Amiodarone 200 MG Tablet PO (10:10)
[2024-07-29] MEDS: 0.9% Saline Lock 10 ML Syringe IV (10:11)
[2024-07-29] MEDS: Vancomycin IV 1,000 MG/200 ML BAG 200 MG IV (14:02)
--- NOTE | 2024-07-29 14:50 | CASEMGMT ---
STUART BRAVO Readmission Note Previous Admission:07/10/24-07/13/24 Diagnosis:UTI, leukocytosis, lactic acidosis DC Disposition: Home Current Admission: Admitted 07/28/24 Current Diagnosis: UTI/Panniculitis Pt presents with chills, fever, dysuria, dx with UTI and panniculitis. Pt with multiple admissions. STUART BRAVO into pt room, pt sitting up in chair in no distress with oxygen on. Pt reports she did take all of her atb ordered from the last hospital stay. Pt states she did a telehealth visit with since last hospitalization. [facility] here in room. Noted in chart pt had an OP tx rx from [facility] admission. Pt states she is not aware of this and does not have this. Pt denies need for any therapy at home or as an outpt. Pt reports she has all the DME needed at home. Pt has been going to the [facility] to see and her dtr has been performing dressing changes with aquacel AG. Pt states she has the supplies needed for this. Pt states she does have transportation home as she drove her car here. Pt denies any homegoing needs at this time although therapy did recommend additional therapy, pt declined. Pt denies need for home nurse to provide education for UTI. DC Plan: Home
--- NOTE | 2024-07-29 17:10 | PN_ITS ---
Subjective Subjective Patient seen and examined. She complains of the catheter which is in situ. She still has redness over the pannicular region. She denies any fever or chills. Review of systems otherwise negative. I saw the patient with her nurse by bedside. Objective Data Objective Data Vital Signs: Vital Signs Temp Pulse Resp BP Pulse Ox O2 Del Method O2 Flow Rate 98.7 F 64 18 108/48 L 98 Nasal Cannula 2 07/29/24 16:14 07/29/24 16:14 07/29/24 16:14 07/29/24 16:14 07/29/24 16:14 07/29/24 16:14 07/29/24 16:14 Oxygen Flow Rate (L/min) 2 Oxygen Delivery Method Nasal Cannula Weight: 285 lb 11.505 oz Body Mass Index (BMI) 44.8 Intake & Output: Intake and Output for Last 24 Hours 07/27/24 07/28/24 07/29/24 23:59 23:59 23:59 Intake Total 150 / 390 1100 / 1100 Output Total 600 / 600 Balance 150 / 390 500 / 500 Lab / Micro Data 07/29/24 06:00 07/29/24 06:00 Labs: Laboratory Results - last 24 hr 07/28/24 19:25: WBC 17.7 H, RBC 4.41, Hgb 12.8, Hct 39.9, MCV 90.5, MCH 29.0, MCHC 32.1, RDW Std Deviation 53.2 H, RDW Coeff of Ruben 15.9 H, Plt Count 168, MPV 12.1 H, Immature Gran % (Auto) 0.600, Neut % (Auto) 93.3 H, Lymph % (Auto) 2.5 L , [place] % (Auto) 2.9, Eos % (Auto) 0.5, Baso % (Auto) 0.2, Absolute Neuts (auto) 16.5 H, Absolute Lymphs (auto) 0.44 L, Nucleated RBC % 0, PT 17.4 H, INR 1.4, A PTT 37.1 H, Sodium 142, Potassium 3.9, Chloride 107, Carbon Dioxide 22.5, Anion Gap 13, BUN 21 H, Creatinine 1.36 H, Est GFR (MDRD) Non-Af 40 L, BUN/Creatinine Ratio 15.4, Glucose 123 H, Lactic Acid 1.7, Calcium 10.1, Total Bilirubin 0.91, AST 29, ALT 34, Alkaline Phosphatase 101, Total Protein 6.9, Albumin 3.9, Globulin 3.0, Albumin/Globulin Ratio 1.3 07/28/24 20:27: Urine Color Lenora, Urine Clarity Turbid, Urine pH 6.0, Ur Specific [place] 1.015, Urine Protein 100 H, Urine Glucose (UA) Normal, Urine Ketones Negative, Urine Occult Blood 250 H, Urine Nitrite Positive H, Urine Bilirubin Negative, Urine Urobilinogen 1 H, Ur Leukocyte Esterase 500 H, Urine RBC > 100 SEEN, Urine WBC 25-50 SEEN, Ur Squamous Epith Cells 0 SEEN, Urine Bacteria 3+, Urine Mucus 0 SEEN 07/29/24 06:00: WBC 12.7 H, RBC 3.68 L, Hgb 10.8 L, Hct 33.2 L, MCV 90.2, MCH 29.3, MCHC 32.5, RDW Std Deviation 52.1 H, RDW Coeff of Ruben 15.9 H, Plt Count 121 L, MPV 12.5 H, Immature Gran % (Auto) 0.900, Neut % (Auto) 88.4 H, Lymph % (Auto) 4.9 L, [place] % (Auto) 5.1, Eos % (Auto) 0.4, Baso % (Auto) 0.3, Absolute Neuts (auto) 11.2 H, Absolute Lymphs (auto) 0.62 L, Nucleated RBC % 0, Sodium 142, Potassium 3.6, Chloride 108, Carbon Dioxide 23.3, Anion Gap 10, BUN 22 H, C reatinine 1.48 H, Estim Creat Clear Calc 44.63 L, Est GFR (MDRD) Non-Af 36 L, BUN/Creatinine Ratio 14.9, Glucose 101 H, Calcium 9.3, Phosphorus 2.2 L, Magnesium 1.7, Total Bilirubin 0.97, AST 20, ALT 28, Alkaline Phosphatase 73, T otal Protein 5.5 L, Albumin 3.1 L, Globulin 2.4, Albumin/Globulin Ratio 1.3, MRSA (PCR) Negative Micro: Microbiology 07/28/24 20:27 Urine, Catheterized Urine Culture - Preliminary GNR 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 lamp stack developer 07/29/24 00:00 Wound - Abdominal Gram Stain - Final 07/29/24 00:00 Wound - Abdominal Skin and Soft Tissue MRSA/MSSA (PCR - Final Radiography Diagnostic Testing: Radiology Impression Chest X-Ray 07/28/24 19:06 IMPRESSION: No radiographic evidence of pneumonia Reading Location: [facility] Physical Exam Const alert, oriented x3 and no apparent distress Constitutional Narrative: class III obesity General Appearance: cooperative HEENT normocephalic, head/scalp atraumatic, moist oral mucous membranes and oropharynx normal Eyes EOMs intact bilaterally Neck supple and no JVD Lymph Lymphatic: no lymphedema noted Resp normal respiratory effort, normal air movement and clear to auscultation bilaterally Cardio regular rate, regular rhythm, S1 normal heart sound, S2 normal heart sound and no murmurs GI normal to inspection, nondistended, normoactive bowel sounds and soft to palpation GI Narrative: Very large abdominal pannus which is erythematous and warm to touch. Minimal tenderness. Has a superficial ulceration beneath the pannus which had been dressed by wound care today. Extremity normal capillary refill, no clubbing, cyanosis or edema and no calf tenderness General Extremity: no tenderness to palpation of joints or extremities Skin Skin Narrative: as under abdomen Neuro CN's II-XII intact bilaterally, no focal motor deficits and no sensory deficits noted Motor Exam: strength 5/5 throughout and general weakness Psych thought process normal and cooperative Appearance: appropriate Assessment & Plan Assessment/Plan (1) Panniculitis: (2) Urinary tract infection: PLAN: Plan #Panniculitis with superficial ulceration * Still has erythema and differential warmth over the pannicular area on the abdomen. * Blood cultures pending. Wound care on board. On IV vancomycin and meropenem. * ID on board. #UTI: * Blood and urine cultures pending. * On IV antibiotics as above. * On methenamine due to recurrent UTI. * WBC is down to 12.7 from 17 on admission. #Severe aortic valve stenosis: Follow-up with cardiology on outpatient basis for replacement #Chronic hypoxic respiratory failure due to COPD: * On 2 L of oxygen at baseline. * Breathing treatments bronchodilators. * Titrate oxygen to maintain saturation above 90%. #History of bilateral DVT and PE: On Eliquis #Paroxysmal A-fib: On amiodarone and Eliquis #Hypertension and hyperlipidemia: On statin #GERD: On PPI #Depression: On fluoxetine #CKD stage IIIb: Creatinine at baseline. Will monitor #Class III obesity: BMI is 44.7. Complicates acute care, expected recovery and prognosis DVT prophylaxis: Already on Eliquis Charges/Coding Visit Charges Inpatient E&M: 73363 Subs Hosp L2
[2024-07-29] MEDS: Atorvastatin Calcium 10 MG Tablet PO (22:02)
[2024-07-30] MEDS: Vancomycin IV 1,000 MG/200 ML BAG 200 MG IV (01:59)
[2024-07-30] MEDS: 0.9% Normal Saline (250mL Bag) 250 ML 15 ML IV (02:04)
[2024-07-30 04:00] VITALS: BP 117/46; PULSE 63; RESP 16; TEMP 36.8; O2SAT 99
[2024-07-30 06:00] VITALS: BMI 45.2
[2024-07-30 06:16] LABS: Absolute Lymphocyte Count 0.85 X10^3/uL (0.83-4.51); Absolute Neutrophil Count 5.9 X10^3/uL (2.0-7.7); Basophil# 0.03 X10^3/uL; Basophil% 0.4 % (0-1); Eosinophil# 0.64 X10^3/uL; Eosinophils% 7.8 % (0-5); Hematocrit 34.5 % (37-47); Lymphocyte # 0.85 X10^3/ul (0.83-4.51); Lymphocyte % 10.4 % (19-41); Mean Corp Hgb Conc 31.9 g/dL (32-36); Mean Corpuscular Hgb 29.3 pg (27.0-32.0); Mean Corpuscular Volume 91.8 fL (81-99); Mean Platelet Vol. 12.3 fl (6.2-12.0); Monocyte# 0.72 X10^3/uL; Monocyte% 8.8 % (0-10); NRBC Flagged by Analyzer 0 % (0-5); Neutrophil # 5.92 X10^3/uL (2.7-7.7); Neutrophil % 72.2 % (47-70); Platelet Count 113 K/mm3 (150-450); RBC Distribution Width CV 16.1 % (11.6-14.6); RBC Distribution Width SD 54.1 fl (35.1-43.9); Red Blood Count 3.76 M/mm3 (4.2-5.4); White Blood Count 8.2 K/mm3 (4.4-11.0)
[2024-07-30 07:09] VITALS: PULSE 65; RESP 17; O2SAT 98
[2024-07-30] MEDS: Budesonide Respules 0.5 MG/2 ML AMPUL.NEB. INHALATION (07:09)
[2024-07-30] MEDS: Ipratropium/Albuterol Sulfate 3 ML AMPUL.NEB INHALATION (07:09)
[2024-07-30 07:20] LABS: Anion Gap 11 (5-15); BUN 26 mg/dL (4-19); BUN/Creat Ratio 17.9 RATIO (10-20); Calcium,Total 9.7 mg/dL (7.6-11.0); Carbon Dioxide 23.7 mmol/L (21.0-32.0); Chloride 107 mmol/L (98-108); Creatinine, Serum 1.46 mg/dL (0.70-1.20); EST Glomerular Filtration Rate 37 (>60); Estimated Creatinine Clearance 45.46 ml/min (50-250); Glucose 92 mg/dL (70-99); Potassium 3.7 mmol/L (3.3-5.1); Sodium Level 142 mmol/L (133-145)
[2024-07-30 08:43] VITALS: BP 108/46; PULSE 65; RESP 18; TEMP 36.8; O2SAT 93
[2024-07-30] MEDS: Ascorbic Acid 500 MG Tablet PO ×2 (09:07→21:38)
[2024-07-30] MEDS: Pantoprazole Sodium 40 MG Tablet PO (09:07)
[2024-07-30] MEDS: Methenamine Hippurate 1 GM Tablet PO ×2 (09:07→21:37)
[2024-07-30] MEDS: Folic Acid/Vitamin B Comp W-C 1 Capsule 1 CAP PO (09:07)
[2024-07-30] MEDS: FLUoxetine 20 MG Capsule PO (09:07)
[2024-07-30] MEDS: Furosemide 20 MG Tablet PO (09:07)
[2024-07-30] MEDS: APIXABAN 5 MG TABLET PO ×2 (09:07→21:37)
[2024-07-30] MEDS: Amiodarone 200 MG Tablet PO (09:07)
[2024-07-30] MEDS: Meropenem 1 GM in 0.9% Normal Saline (100mL MB+) 100 ML IV ×2 (09:09→21:38)
[2024-07-30] MEDS: Ammonium Lactate 225 gm Bottle 1 APPLIC TOPICAL (09:19)
--- NOTE | 2024-07-30 10:42 | PCM.PN.ID ---
Physical Exam Const alert and no apparent distress General Appearance: cooperative Resp normal air movement and clear to auscultation bilaterally Cardio regular rate and regular rhythm Heart Sounds: murmur GI soft to palpation, non-tender and non-distended Skin Skin Narrative: lower abd pannus slightly less red ID ID: Route of nutrition/ use of supplements: [] Nutritional Intake: [] IV Site: [] Croft Catheter: [] Assessment & Plan Assessment/Plan (1) Panniculitis: PLAN: UA improved, denies urinary symptoms. Ucx with small growth ESBL ecoli. Cont vanc/nguyễn for now. Plan on home with 2 weeks po cefdinir 300mg bid if continues to improve. Will follow
--- NOTE | 2024-07-30 10:48 | CASEMGMT ---
Spoke with ID, plan for pt to dc on po atb. Pt is on baseline oxygen at this time.
--- NOTE | 2024-07-30 12:27 | PN_ITS ---
Subjective Subjective Patient seen and examined. She said she felt better today and had no complaints. She was seen with her nurse by her bedside. Review of systems is otherwise negative. Objective Data Objective Data Vital Signs: Vital Signs Temp Pulse Resp BP Pulse Ox O2 Del Method O2 Flow Rate 98.2 F 65 18 108/46 L 93 Nasal Cannula 2 07/30/24 08:43 07/30/24 08:43 07/30/24 08:43 07/30/24 08:43 07/30/24 08:43 07/30/24 08:45 07/30/24 08:45 Oxygen Flow Rate (L/min) 2 Oxygen Delivery Method Nasal Cannula Weight: 288 lb 2.307 oz Body Mass Index (BMI) 45.2 Intake & Output: Intake and Output for Last 24 Hours 07/28/24 07/29/24 07/30/24 23:59 23:59 23:59 Intake Total 150 / 390 1100 / 1100 426.25 / 426.25 Output Total 600 / 600 Balance 150 / 390 500 / 500 426.25 / 426.25 Lab / Micro Data 07/30/24 05:49 07/30/24 05:49 Labs: Laboratory Results - last 24 hr 07/28/24 20:27: Urine Color Lenora, Urine Clarity Turbid, Urine pH 6.0, Ur Specific [place] 1.015, Urine Protein 100 H, Urine Glucose (UA) Normal, Urine Ketones Negative, Urine Occult Blood 250 H, Urine Nitrite Positive H, Urine Bilirubin Negative, Urine Urobilinogen 1 H, Ur Leukocyte Esterase 500 H, Urine RBC > 100 SEEN, Urine WBC 25-50 SEEN, Ur Squamous Epith Cells 0 SEEN, Urine Bacteria 3+, Urine Mucus 0 SEEN 07/30/24 05:49: WBC 8.2, RBC 3.76 L, Hgb 11.0 L, Hct 34.5 L, MCV 91.8, MCH 29.3, MCHC 31.9 L, RDW Std Deviation 54.1 H, RDW Coeff of Ruben 16.1 H, Plt Count 113 L, MPV 12.3 H, Immature Gran % (Auto) 0.400, Neut % (Auto) 72.2 H, Lymph % (Auto) 10.4 L, [place] % (Auto) 8.8, Eos % (Auto) 7.8 H, Baso % (Auto) 0.4, Absolute Neuts (auto) 5.9, Absolute Lymphs (auto) 0.85, Nucleated RBC % 0, Sodium 142, Potassium 3.7, Chloride 107, Carbon Dioxide 23.7, Anion Gap 11, BUN 26 H, C reatinine 1.46 H, Estim Creat Clear Calc 45.46 L, Est GFR (MDRD) Non-Af 37 L, BUN/Creatinine Ratio 17.9, Glucose 92, Calcium 9.7 Micro: Microbiology 07/29/24 00:00 Wound - Abdominal Gram Stain - Final 07/29/24 00:00 Wound - Abdominal Wound Culture - Preliminary GNR Poss Pseudomonas sp 07/28/24 20:27 Urine, Catheterized Urine Culture - Preliminary Escherichia coli 07/29/24 00:00 Wound - Abdominal Skin and Soft Tissue MRSA/MSSA (PCR - Final Physical Exam Const alert, oriented x3 and no apparent distress Constitutional Narrative: class III obesity General Appearance: cooperative HEENT normocephalic, head/scalp atraumatic, hearing grossly normal bilaterally, moist oral mucous membranes and oropharynx normal Eyes EOMs intact bilaterally and conjunctivae normal Eyes Narrative: No scleral icterus Neck supple and no JVD Neck Narrative: Trachea midline, Lymph Lymphatic: no lymphedema noted Resp Resp Narrative: on 2L of oxygen which is her baseline. Mildly diminished breath sounds bibasally, no wheezes or crackles. Auscultation: wheezes Cardio regular rate, regular rhythm, S1 normal heart sound, S2 normal heart sound, no rub, no gallops and no clicks Cardio Narrative: Patient with a 4 out of 6 systolic murmur loudest at right upper sternal border, soft S2, radiates to carotids bilaterally GI GI Narrative: Very large abdominal pannus which is erythematous and warm to touch. Minimal tenderness. intact dressing over superficial ulceration beneath pannus Extremity normal capillary refill, no clubbing, cyanosis or edema and no calf tenderness General Extremity: no tenderness to palpation of joints or extremities Skin No no wounds, no jaundice, no petechiae and no mottling Skin Narrative: as under abdomen Neuro oriented x3, CN's II-XII intact bilaterally, moves all extremities, no focal motor deficits and no sensory deficits noted Speech: speech normal Motor Exam: strength 5/5 throughout and general weakness Psych thought process normal, cooperative and affect normal Appearance: appropriate Assessment & Plan Assessment/Plan (1) Panniculitis: (2) Urinary tract infection: PLAN: Plan #Panniculitis with superficial ulceration * Still has erythema and differential warmth over the pannicular area on the abdomen. * Blood cultures pending. Wound care on board. On IV vancomycin and meropenem. * ID on board. * Wound cultures growing gram-negative rods possible Pseudomonas species. #UTI: * Urine cultures growing E. coli. Blood cultures pending. * On IV antibiotics as above. * On methenamine due to recurrent UTI. * WBC is down even further to 8.2. #Severe aortic valve stenosis: Follow-up with cardiology on outpatient basis for replacement #Chronic hypoxic respiratory failure due to COPD: * On 2 L of oxygen at baseline. * Breathing treatments bronchodilators. * Titrate oxygen to maintain saturation above 90%. #History of bilateral DVT and PE: On Eliquis #Paroxysmal A-fib: On amiodarone and Eliquis #Hypertension and hyperlipidemia: On statin #GERD: On PPI #Depression: On fluoxetine #CKD stage IIIb: Creatinine at baseline. Will monitor #Class III obesity: BMI is 44.7. Complicates acute care, expected recovery and prognosis DVT prophylaxis: Already on Eliquis
[2024-07-30 14:15] VITALS: BP 119/43; PULSE 70; RESP 18; TEMP 36.7; O2SAT 95
--- NOTE | 2024-07-30 15:05 | CHAPLAIN ---
Type of Pastoral Visit _x__ Initial Visit ___ Follow-up Visit ___ On-call Visit ___ General Patient Visit ___ Spiritual Assessment ___ Family Conference ___ Bereavement ___ Rapid Response ___ Code Blue ___ Other (describe below) Pastoral Care Referral From _x__ Patient ___ Family ___ Nurse ___ Physician ___ Global Marketing Coordinator ___ Mercury Recoverer ___ Other (describe below) Sacrament/Intervention _x__ Active listening ___ Anointing ___ Oriental Orthodox ___ Bereavement ___ Communion ___ Caryn exploration ___ ___ Life review ___ Prayer ___ Reconciliation ___ Sacrament of Sick _x__ Supportive presence ___ Wedding ___ Other (describe below) Pastoral Comments many visits have been shared with this patient over the months past; pt is able to talk about her life and needs; daughter is on the speaker phone as they have a conversation; pt relates some details about her life at home and wildlife that lives near them; pt welcomes a prayer
--- NOTE | 2024-07-30 15:22 | PCM.RX.CS ---
Consult Antibiotic Management Pharmacy has been consulted to manage selected antibiotic: Vancomycin Type of Intervention Type of Consult: Follow-up Suspected Infection Suspected Infection: Other (PANCIULLITIS) Prior Doses of Antibiotics Prior Doses of Antibiotics Received/Current Regimen: Vancomycin 1000 mg IV Q12H last dose given 07/30/24 @ 0159 Labs Labs: Sodium 142 mmol/L (133-145) 07/30/24 05:49 Potassium 3.7 mmol/L (3.3-5.1) 07/30/24 05:49 Chloride 107 mmol/L (98-108) 07/30/24 05:49 Carbon Dioxide 23.7 mmol/L (21.0-32.0) 07/30/24 05:49 Anion Gap 11 (5-15) 07/30/24 05:49 BUN 26 mg/dL (4-19) H 07/30/24 05:49 Creatinine 1.46 mg/dL (0.70-1.20) H 07/30/24 05:49 Est GFR (MDRD) Non-Af 37 (>60) L 07/30/24 05:49 BUN/Creatinine Ratio 17.9 RATIO (10-20) 07/30/24 05:49 Glucose 92 mg/dL (70-99) 07/30/24 05:49 Vancomycin Trough 21.0 ug/mL (5.0-15.0) H 07/30/24 14:05 Microbiology Microbiology: Microbiology 07/29/24 00:00 Wound - Abdominal Gram Stain - Final 07/29/24 00:00 Wound - Abdominal Wound Culture - Preliminary GNR Poss Pseudomonas sp 07/28/24 20:27 Urine, Catheterized Urine Culture - Preliminary Escherichia coli 07/29/24 00:00 Wound - Abdominal Skin and Soft Tissue MRSA/MSSA (PCR - Final Dosing Weight Weight used for dosin kg Estimated Creatinine Clearance Estimated Creatinine Clearance: ~ 45 Goal Trough Goal Trough: 15-20 mcg/mL Pharmacy Plan for Drug Dosing Pharmacy Plan for Drug Dosing: Vancomycin trough = 21.0, hold until random in AM. Pharmacy Service will continue to monitor and adjust dosing as required. Follow-Up Labs Follow-Up Labs: Trough: Vancomycin Date/Time Labs Ordered Labs to be done on [date and time ordered]: 07/31/24 @ 0600
[2024-07-30 19:55] VITALS: BP 125/61; PULSE 65; RESP 18; TEMP 36.6; O2SAT 94
[2024-07-30] MEDS: Atorvastatin Calcium 10 MG Tablet PO (21:38)
[2024-07-31 04:53] VITALS: BP 125/57; PULSE 62; RESP 16; TEMP 36.7; O2SAT 95
[2024-07-31 05:35] VITALS: BMI 44.9
[2024-07-31 06:48] LABS: Absolute Lymphocyte Count 0.84 X10^3/uL (0.83-4.51); Absolute Neutrophil Count 3.7 X10^3/uL (2.0-7.7); Basophil# 0.05 X10^3/uL; Basophil% 0.8 % (0-1); Eosinophil# 0.71 X10^3/uL; Eosinophils% 11.6 % (0-5); Hemoglobin 10.8 g/dL (12.0-15.0); Lymphocyte # 0.84 X10^3/ul (0.83-4.51); Lymphocyte % 13.7 % (19-41); Mean Corp Hgb Conc 31.8 g/dL (32-36); Mean Corpuscular Hgb 28.9 pg (27.0-32.0); Mean Corpuscular Volume 90.9 fL (81-99); Mean Platelet Vol. 12.1 fl (6.2-12.0); Monocyte# 0.73 X10^3/uL; Monocyte% 11.9 % (0-10); NRBC Flagged by Analyzer 0 % (0-5); Neutrophil # 3.74 X10^3/uL (2.7-7.7); Neutrophil % 61.3 % (47-70); Platelet Count 128 K/mm3 (150-450); RBC Distribution Width CV 15.9 % (11.6-14.6); RBC Distribution Width SD 53.5 fl (35.1-43.9); Red Blood Count 3.74 M/mm3 (4.2-5.4); White Blood Count 6.1 K/mm3 (4.4-11.0)
[2024-07-31 07:00] LABS: Vancomycin, Random Level 14.3 ug/mL (0.0-15.0)
[2024-07-31 07:06] LABS: Anion Gap 9 (5-15); BUN 25 mg/dL (4-19); BUN/Creat Ratio 18.3 RATIO (10-20); Calcium,Total 9.7 mg/dL (7.6-11.0); Carbon Dioxide 24.1 mmol/L (21.0-32.0); Chloride 108 mmol/L (98-108); Creatinine, Serum 1.36 mg/dL (0.70-1.20); EST Glomerular Filtration Rate 40 (>60); Estimated Creatinine Clearance 48.58 ml/min (50-250); Glucose 97 mg/dL (70-99); Potassium 3.9 mmol/L (3.3-5.1); Sodium Level 142 mmol/L (133-145)
[2024-07-31 08:50] VITALS: O2SAT 97
[2024-07-31] MEDS: Vancomycin HCl 750 MG in 0.9% Normal Saline (250mL Bag) 250 ML 250 MG IV (09:00)
[2024-07-31] MEDS: 0.9% Saline Lock 10 ML Syringe IV (09:05)
[2024-07-31] MEDS: Pantoprazole Sodium 40 MG Tablet PO (09:07)
[2024-07-31] MEDS: Folic Acid/Vitamin B Comp W-C 1 Capsule 1 CAP PO (09:07)
[2024-07-31] MEDS: FLUoxetine 20 MG Capsule PO (09:08)
[2024-07-31] MEDS: Ascorbic Acid 500 MG Tablet PO (09:08)
[2024-07-31] MEDS: FLUTICASONE/UMECLIDIN/VILANTER 1 INH INHALER INHALATION (09:08)
[2024-07-31] MEDS: APIXABAN 5 MG TABLET PO (09:09)
[2024-07-31] MEDS: Furosemide 20 MG Tablet PO (09:09)
[2024-07-31] MEDS: Methenamine Hippurate 1 GM Tablet PO (09:09)
[2024-07-31] MEDS: Amiodarone 200 MG Tablet PO (09:10)
--- NOTE | 2024-07-31 09:53 | CPS ---
Patient has home BIPAP here to wear during her stay with 2L HS
[2024-07-31] MEDS: Meropenem 1 GM in 0.9% Normal Saline (100mL MB+) 100 ML IV (10:45)
[2024-07-31 11:00] VITALS: RESP 18
[2024-07-31 11:26] VITALS: BP 138/69; PULSE 79; RESP 18; TEMP 36.9; O2SAT 95
[2024-07-31 14:07] VITALS: BP 112/46; PULSE 60; RESP 18; TEMP 36.7; O2SAT 97
--- NOTE | 2024-07-31 15:40 | DS.PCM_ITS ---
Providers Date of Admission: 07/28/24 Date of Discharge: 07/31/24 Primary Care Physician: Dr. Sandrine Mireles MD Consultations 07/29/24 00:21 Consult: Infectious Disease Routine Consulting Provider: Hari Ma Reason for Consult: UTI/Panniculitis EMERGENT Consult: No Notified: Yes Date Notified: 07/29/24 Time Notified: 06:33 Method of Notification: Text 07/29/24 00:47 Consult: Infectious Disease Routine Consulting Provider: Hari Ma Reason for Consult: wound EMERGENT Consult: No Notified: No Date Notified: 07/29/24 Time Notified: 00:47 07/29/24 04:36 Consult: Onc/Wound/life insurance actuary Routine Comment: Reason for Consult:: abd wound Reason For Visit: UTI/PANNICULITIS Diagnosis Discharge Diagnosis (1) Panniculitis: Status: Acute Code(s): M79.3 - Panniculitis, unspecified (2) Urinary tract infection: Status: Acute Code(s): N39.0 - Urinary tract infection, site not specified Plan #Panniculitis with superficial ulceration * Still has erythema and differential warmth over the pannicular area on the abdomen. * Blood cultures pending. Wound care on board. On IV vancomycin and meropenem. * ID on board. * Wound cultures growing gram-negative rods possible Pseudomonas species. #UTI: * Urine cultures growing E. coli. Blood cultures pending. * On IV antibiotics as above. * On methenamine due to recurrent UTI. * WBC is down even further to 8.2. #Severe aortic valve stenosis: Follow-up with cardiology on outpatient basis for replacement #Chronic hypoxic respiratory failure due to COPD: * On 2 L of oxygen at baseline. * Breathing treatments bronchodilators. * Titrate oxygen to maintain saturation above 90%. #History of bilateral DVT and PE: On Eliquis #Paroxysmal A-fib: On amiodarone and Eliquis #Hypertension and hyperlipidemia: On statin #GERD: On PPI #Depression: On fluoxetine #CKD stage IIIb: Creatinine at baseline. Will monitor #Class III obesity: BMI is 44.7. Complicates acute care, expected recovery and prognosis DVT prophylaxis: Already on Eliquis Medications at Discharge Home Medications ergocalciferol (vitamin D2) 1,250 mcg (50,000 unit) capsule 50,000 unit PO MAZA SUPPLEMENT 02/25/20 fluoxetine 20 mg capsule 20 mg PO DAILY DEPRESSION 02/25/20 rosuvastatin 5 mg tablet (Crestor) 5 mg PO QHS cholesterol 01/16/21 pantoprazole 40 mg tablet,delayed release 40 mg PO DAILY reflux 03/12/21 amiodarone 200 mg tablet 200 mg PO DAILY heart rate #0 tabs 02/26/23 albuterol sulfate 90 mcg/actuation breath activated powder inhaler 2 inh inhalation Q4H PRN shortness of breath 03/27/23 vitamin B complex and vitamin C no.20-folic acid 1 mg capsule (Renal Caps) 1 cap PO DAILY vitamin 03/27/23 sennosides 8.6 mg-docusate sodium 50 mg tablet (Stool Softener-Stimulant Laxative) 2 tab PO BID PRN constipation 06/25/23 apixaban 5 mg tablet (Eliquis) 5 mg PO BID 01/28/24 cranberry fruit concentrate 250 mg chewable tablet (Azo Cranberry) 250 mg PO DAILY 01/28/24 fluticasone fur. 100 mcg-umeclid 62.5 mcg-vilant 25 mcg inhalat.powder (Trelegy Ellipta) 1 ea inhalation DAILY 01/28/24 methenamine hippurate 1 gram tablet 1 g PO BID #60 tabs 03/15/24 ascorbic acid (vitamin C) 500 mg tablet (Vitamin C) 500 mg PO BID 06/23/24 furosemide 20 mg tablet (Lasix) 20 mg PO DAILY #90 tabs 07/13/24 cefdinir 300 mg capsule 300 mg PO BID 2 weeks #28 caps 07/31/24 levofloxacin 500 mg tablet 500 mg PO DAILY #5 tabs 07/31/24 Hospital Course Operations None Procedures None Summary of Care Provided Minutes Spent on Discharge: 45 Hospital Course: Patient is a 78-year-old female with past medical history as outlined was admitted through the ED on 07/28/2024 with complaint of fever chills and warmth and redness over her panniculus on the abdomen. She also had burning with urination. She had been admitted in late June and discharged on July 13, 2024 on p.o. cefdinir. She completed the antibiotic course about 3 days prior to admission. Labs were significant for elevated WBC of 17.7 with a left shift. Kidney function was stable and urinalysis showed evidence of UTI with positive nitrites and elevated leukocyte esterase as well as 3+ bacteria. She was admitted to be managed for UTI and panniculitis and started on levofloxacin and vancomycin. ID was consulted. Urine cultures grew ESBL E. coli. Antibiotics were transitioned to IV vancomycin and meropenem. The redness over her pannicula improved significantly. Wound cultures grew Pseudomonas. Urine cultures as stated grew ESBL E. coli. Her white cell count trended down to normal. Per ID recommendations she was discharged home on 07/31/2024 on p.o. cefdinir 300 mg twice daily for 2 weeks. Due to wound cultures growing Pseudomonas she was also discharged on p.o. Levaquin 500 mg twice daily for 5 days based on the culture results. She is follow-up with her primary care doctor within 1 to 2 weeks. Patient seen and examined prior to discharge. She felt much better and had no complaints. She had an uneventful night. Review of systems otherwise negative. Labs and vitals reviewed. Home medication reviewed and reconciled. Physical Exam Const alert, oriented x3, no apparent distress and well nourished Constitutional Narrative: class III obesity General Appearance: cooperative and comfortable Orientation / Consciousness: awake Exam Limitations: no limitations HEENT normocephalic, head/scalp atraumatic, hearing grossly normal bilaterally, moist oral mucous membranes and oropharynx normal Mouth: oral and palatal mucosa normal Eyes PERRL, EOMs intact bilaterally and conjunctivae normal Eyes Narrative: No scleral icterus Neck supple and no JVD Neck Narrative: Trachea midline Lymph Lymphatic: no lymphedema noted Resp Resp Narrative: on 2L of oxygen which is her baseline. Mildly diminished breath sounds bibasally, no wheezes or crackles. Auscultation: wheezes; Negative for crackles or rhonchi Cardio regular rate, regular rhythm, S1 normal heart sound and S2 normal heart sound Cardio Narrative: Patient with a 4 out of 6 systolic murmur loudest at right upper sternal border, soft S2, radiates to carotids bilaterally GI GI Narrative: Very large abdominal pannus. Erythema has largely improved. Intact dressing over superficial ulceration beneath pannus Extremity normal to inspection, full ROM, normal capillary refill, no clubbing, cyanosis or edema and no calf tenderness General Extremity: no tenderness to palpation of joints or extremities Skin no jaundice, no petechiae and no mottling Skin Narrative: as under abdomen Neuro oriented x3, CN's II-XII intact bilaterally, moves all extremities, no focal motor deficits and no sensory deficits noted Speech: speech normal Motor Exam: strength 5/5 throughout and general weakness Psych thought process normal, cooperative and affect normal Psych Narrative: Very pleasant, interacts appropriately Appearance: appropriate Weight / BMI Weight Weight: 285 lb 15.033 oz Body Mass Index (BMI) 44.9 ABG / Lab / Microbiology Data 07/31/24 05:54 07/31/24 05:54 Laboratory: Laboratory Results - last 24 hr 07/31/24 05:54: WBC 6.1, RBC 3.74 L, Hgb 10.8 L, Hct 34.0 L, MCV 90.9, MCH 28.9, MCHC 31.8 L, RDW Std Deviation 53.5 H, RDW Coeff of Ruben 15.9 H, Plt Count 128 L, MPV 12.1 H, Immature Gran % (Auto) 0.700, Neut % (Auto) 61.3, Lymph % (Auto) 13.7 L, George % (Auto) 11.9 H, Eos % (Auto) 11.6 H, Baso % (Auto) 0.8, Absolute Neuts (auto) 3.7, Absolute Lymphs (auto) 0.84, Nucleated RBC % 0, Sodium 142, Potassium 3.9, Chloride 108, Carbon Dioxide 24.1, Anion Gap 9, BUN 25 H, C reatinine 1.36 H, Estim Creat Clear Calc 48.58 L, Est GFR (MDRD) Non-Af 40 L, BUN/Creatinine Ratio 18.3, Glucose 97, Calcium 9.7, Random Vancomycin 14.3 Microbiology: Microbiology 07/28/24 20:38 Blood Culture (Wb) - Left Forearm Blood Culture - Preliminary No growth in 48 hours. 07/28/24 19:25 Blood Culture (Wb) - Left Forearm Blood Culture - Preliminary No growth in 48 hours. 07/29/24 00:00 Wound - Abdominal Gram Stain - Final 07/29/24 00:00 Wound - Abdominal Wound Culture - Final Pseudomonas aeruginosa 07/28/24 20:27 Urine, Catheterized Urine Culture - Final ESBL Escherichia coli 07/29/24 00:00 Wound - Abdominal Skin and Soft Tissue MRSA/MSSA (PCR - Final D/C Instructions Discharge Diet: Low fat / Low cholesterol Discharge Activity: Return to Normal Activity Weight Bearing Status: Weight bearing as tolerated Call your doctor if you observe: Fever of 101 or Higher, Shortness of breath, Dizziness, Swelling in the ankles and Chest pain DC O2, CPAP, BIPAP Needs Home O2 Discharge instructions: No DC home with Oxygen: No Meaningful Use Info Meaningful Use Meaningful Use Diagnoses (Choose all that apply): None applicable Ischemic Stroke Statin Dosing Therapy Reference: STATIN DOSE THERAPY REFERENCE: * Patients > 75 years receive moderate or high dose statin therapy. * Patients 75 years or YOUNGER should receive HIGH intensity statin dose unless contraindicated. You will be required to document reason for non-treatment if statin daily dose does not meet guidelines. HIGH DOSE STATIN THERAPY DAILY Atorvastatin > than or = to 40 mg Rosuvastatin > than or = to 20 mg Amlodipine + Atorvastatin > than or = to 2.5/40 mg Ezetimibe + Simvastatin 10/80 mg Simvastatin 80mg Discharge Plan Admission Admit Date/Time: 07/28/24 22:00 Primary Reason for Your Visit: panniculitis Attending Provider: Ariela Berger Primary Care Provider: Sandrine Mireles Consulting Providers: Hari Ma; Any Oakley Instructions Patient Instructions: Cellulitis, ED UTIs Women Discharge Orders/Prescriptions Prescriptions: New cefdinir 300 mg capsule 300 mg PO BID 14 Days Qty: 28 0RF levofloxacin 500 mg tablet 500 mg PO DAILY Qty: 5 0RF Continued pantoprazole 40 mg tablet,delayed release (DR/EC) 40 mg PO DAILY ergocalciferol (vitamin D2) 50,000 UNIT capsule 50,000 unit PO MAZA Patient Comments: take 1 capsule by mouth every week on sundays fluoxetine 20 MG capsule 20 mg PO DAILY Patient Comments: depression rosuvastatin [Crestor] 5 mg Tablet 5 mg PO QHS Renal Caps 1 mg capsule 1 cap PO DAILY albuterol sulfate 90 mcg/actuation aerosol powdr breath activated 2 inh inhalation Q4H PRN (Reason: shortness of breath) amiodarone 200 mg Tablet 200 mg PO DAILY Qty: 0 0RF sennosides-docusate sodium [Stool Softener-Stimulant Laxat] 8.6-50 mg Tablet 2 tab PO BID PRN (Reason: constipation) Rx Instructions: Available [id number]. Eliquis 5 mg tablet 5 mg PO BID Trelegy Ellipta 100-62.5-25 mcg blister with device 1 ea INHALATION DAILY Azo Cranberry 250 mg tablet,chewable 250 mg PO DAILY methenamine hippurate 1 gram tablet 1 g PO BID Qty: 60 2RF Rx Instructions: take with vitamin C ascorbic acid (vitamin C) [Vitamin C] 500 mg tablet 500 mg PO BID furosemide [Lasix] 20 mg tablet 20 mg PO DAILY Qty: 90 0RF Patient Comments: takes 20 mg every other day but will take 20mg every day if needed Referrals / Follow Up: Sandrine Mireles MD [Primary Care Provider] - Within 1 Week Disposition Disposition (needs filled in before D/C Order can be placed): Home, Self Care Charges/Coding Visit Charges Inpatient E&M: 79581 Disch Hosp >30min
--- NOTE | 2024-07-31 15:56 | PCM.RX.CS ---
Consult Antibiotic Management Pharmacy has been consulted to manage selected antibiotic: Vancomycin Type of Intervention Type of Consult: Follow-up Suspected Infection Suspected Infection: Other Labs Labs: Sodium 142 mmol/L (133-145) 07/31/24 05:54 Potassium 3.9 mmol/L (3.3-5.1) 07/31/24 05:54 Chloride 108 mmol/L (98-108) 07/31/24 05:54 Carbon Dioxide 24.1 mmol/L (21.0-32.0) 07/31/24 05:54 Anion Gap 9 (5-15) 07/31/24 05:54 BUN 25 mg/dL (4-19) H 07/31/24 05:54 Creatinine 1.36 mg/dL (0.70-1.20) H 07/31/24 05:54 Est GFR (MDRD) Non-Af 40 (>60) L 07/31/24 05:54 BUN/Creatinine Ratio 18.3 RATIO (10-20) 07/31/24 05:54 Glucose 97 mg/dL (70-99) 07/31/24 05:54 Vancomycin Trough 21.0 ug/mL (5.0-15.0) H 07/30/24 14:05 Random Vancomycin 14.3 ug/mL (0.0-15.0) 07/31/24 05:54 Microbiology Microbiology: Microbiology 07/28/24 20:38 Blood Culture (Wb) - Left Forearm Blood Culture - Preliminary No growth in 48 hours. 07/28/24 19:25 Blood Culture (Wb) - Left Forearm Blood Culture - Preliminary No growth in 48 hours. 07/29/24 00:00 Wound - Abdominal Gram Stain - Final 07/29/24 00:00 Wound - Abdominal Wound Culture - Final Pseudomonas aeruginosa 07/28/24 20:27 Urine, Catheterized Urine Culture - Final ESBL Escherichia coli 07/29/24 00:00 Wound - Abdominal Skin and Soft Tissue MRSA/MSSA (PCR - Final Goal Trough Goal Trough: 15-20 mcg/mL Pharmacy Plan for Drug Dosing Pharmacy Plan for Drug Dosing: VANCOMYCIN LEVEL RECEIVED Current Vancomycin Dose: Current dose on hold due to elevated trough. Previous dose was 1000mg q12h Number of Doses Received: Vancomycin Level: 14.3 Hours Since Last Dose: 28 hours since last 1000mg dose Renal Function: SrCr 1.36 Renal Function Trend: SrCr improving (was 1.46 on 07/30) Lab/Micro: Vancomycin Plan/Comments: recommend restarting vancomycin at a dose of 750mg q12h, checking a trough prior to the 4th dose Pending Level: 08/01/24 at 2030 Pharmacy Service will continue to monitor and adjust dosing as required. Follow-Up Labs Follow-Up Labs: Trough: Vancomycin (08/01/24 @ 2029)
[2024-07-31 18:12] VITALS: BP 118/54; PULSE 60; RESP 18; TEMP 36.9; O2SAT 98
== END 2024-07-31 18:12 | disposition home or self-care (01) | DRG 872 ==
LOC: ED 21:46 → MS3 22:55
PROVIDERS: Internal Medicine Infectious Disease; Admitting Provider Internal Medicine; Emergency Provider Emergency Medicine; PCP Internal Medicine; Visit Provider Student in an Organized Health Care Education/Training Program
DX: A41.52 Sepsis due to Pseudomonas (principal); J96.11 Chronic respiratory failure with hypoxia; Z68.41 Body mass index [BMI] 40.0-44.9, adult; N39.0 Urinary tract infection, site not specified; Z99.81 Dependence on supplemental oxygen; J44.9 Chronic obstructive pulmonary disease, unspecified; N18.32 Chronic kidney disease, stage 3b; I35.0 Nonrheumatic aortic (valve) stenosis; I12.9 Hypertensive chronic kidney disease with stage 1 through stage 4 chronic kidney disease, or unspecified chronic kidney disease; F32.A Depression, unspecified; I48.0 Paroxysmal atrial fibrillation; E55.9 Vitamin D deficiency, unspecified; M79.3 Panniculitis, unspecified; K21.9 Gastro-esophageal reflux disease without esophagitis; G47.33 Obstructive sleep apnea (adult) (pediatric); E78.5 Hyperlipidemia, unspecified; E66.01 Morbid (severe) obesity due to excess calories; B96.20 Unspecified Escherichia coli [E. coli] as the cause of diseases classified elsewhere; E66.813 Obesity, class 3; Z79.01 Long term (current) use of anticoagulants; Z79.51 Long term (current) use of inhaled steroids; Z79.899 Other long term (current) drug therapy; Z86.711 Personal history of pulmonary embolism; Z86.718 Personal history of other venous thrombosis and embolism
CPT/HCPCS: 36415; 51702; 71045; 80048; 80053; 80202; 81001; 83605; 83735; 84100; 85025; 85610; 85730; 87040; 87070; 87077; 87086; 87088; 87184; 87186; 87205; 87640; 87641; 93005; 94640; 94668; 97162; 97802; 99252; 99285; J2185; A4216; G0463

== ENCOUNTER 2024-08-02 15:28 | Outpatient (RCR) | payer MEDICARE, OTHER, SELFPAY ==
[2024-06-17 00:38] VITALS: BP 140/68; PULSE 69; RESP 18; TEMP 36.3
[2024-08-02 15:44] VITALS: BP 169/90; PULSE 75; RESP 20; TEMP 37.6
--- NOTE | 2024-08-02 18:05 | PCM.WC.PN ---
History of Present Illness Date of Service: 08/02/24 Chief Complaint: Abdominal wound History of Wound: Nerissa Bradley is a 77-year-old female who presents to the wound healing center today for evaluation management of an abdominal wound. This wound is located in the midline under her pannus. She does have a very large pannus with significant weight. she reports that this wound has been present for approximately 1 month, first came to her attention when she was admitted to the hospital recently. She thinks it is from her wheelchair hitting against the area. At home, she relies on her daughter to assist her with wound care. Since her discharge from the hospital, they have been utilizing Aquacel they were sent home with but she did run out recently. She had been receiving antifungal powder to apply while in the hospital, but does not have this at home. She denies any history of prior wounds in this area. She does have a history of superficial wounds to the bilateral lower extremities which were also noted at the time of her most recent hospitalization early February, but seem to be resolved at this time. She does wear compression stockings. She is trying to do a better job of elevating her legs but does note she cannot lay back too far without having difficulty breathing. She is diabetic but most recent A1c in 11/2022 5.4 and do not see any active medications for diabetes. She does not smoke. She does not take any blood thinners other than aspirin. 27 October 2023: Dr. Mireles graciously referred me this very pleasant 77-year-old female for evaluation of a wound beneath her abdominal pannus in the crease. Mrs. Bradley's daughter was present on the phone during our visit we discussed her status. Their main goal from the visit today was to get follow-up for the abdominal wound beneath her pannus. She was admitted to the [facility] for her multiple comorbidities, including treatment of her COPD as well as aortic stenosis, and during this time she was treated for this wound that was developing beneath her pannus. They suggested that she follow-up with the marketing project specialist and [facility] near her home. She reports that she has been doing packing with Vashe soaked Kerlix twice daily and has been putting Interdry beneath the pannus to keep the skin from becoming macerated. No recent problems with yeast. 03 Nov 2023: Doing well overall. No new complaints. No fevers/chills. No new drainage. Daughter has been helping her with the dressing changes with Vashe. 17 Nov 2023: Doing well overall. Endorses good dressing changes. No new problems 08 Dec 2023: Doing well. Compliant with wound care. Seeing Dr. Mireles tomorrow. 29 Dec 2023: New wound on abdomen today. Has not been using the pad, Interdry (ran out and needs more, they've been ordered). No fevers/chills. 12 Jan 2024: Has been using Interdry. No fevers/chills. Here today for check up 26 Jan 2024: Discharged from [facility] recently after admission for UTI. No much progress on wound. Reports high protein intake and being intentional about this. Subjective Subjective The patient is a 78-year-old female presenting with a healing wound and associated conditions. She has been experiencing peniculitis and cellulitis, for which she has been hospitalized multiple times over the past month, including visits to [facility] and [place]. She is currently on Keflex for these conditions. The patient also has a history of staghorn calculus, which is being managed with an upcoming appointment with a kidney surgeon. Additionally, she has been diagnosed with aortic stenosis, and there is a plan to replace her aortic valve. She has had a urinary tract infection, treated with antibiotics, and the infection was identified as E. coli. Attestation: Documentation on this patient encounter was supported using ambient scribe technology/ voice AI technology. The patient consented to recording for the purpose of documenting the encounter. Provider reviewed content of the generated note prior to signature. Objective Data Objective Data Vital Signs: Vital Signs Temp Pulse Resp BP O2 Del Method O2 Flow Rate 99.6 F H 75 20 H 169/90 H Nasal Cannula 2 08/02/24 15:44 08/02/24 15:44 08/02/24 15:44 08/02/24 15:44 08/02/24 15:44 08/02/24 15:44 Oxygen Flow Rate (L/min) 2 Oxygen Delivery Method Nasal Cannula Charges/Coding Procedures Integumentary [id number]: [id number] [place] subq tissue 20 sq cm/< Physical Exam Narrative - Integumentary: Wound approximately 0.5 x 0.5 cm and 0.1 cm deep, healing well - Vital Signs: Temperature 98.0°F Debridement Note Debridement Note Wound debrided: Abdominal wound beneath pannus Laterality: Not Applicable Wound Grade/Stage: 3 Type of Debridement: Excisional debridement Anesthesia Used: 4% Lidocaine Solution Depth: in the subcutaneous layer Percentage of wound debrided: 100 Instrument Used: 7mm curette Tissue Removed: Fibrinous exudate and granulation tissue Severity: Fat Layer Exposed Amount of bleeding with debridement: Mild Bleeding Controlled with: Compression and gauze Patient tolerated procedure: Patient tolerated procedure well Post-Debridement Measurements and Additional Note: Post-Debridement Measurements/Treatment - Nurse 1 - General Ulcer Assessment Start: 08/02/24 15:39 Freq: Status: Active Protocol: MITCH Activity Type Activity Date Activity User E-sign Co-sign Detail Recorded Client Recorded Date Recorded By Document 08/02/24 15:44 AISHWARYA [id number] 08/02/24 15:45 AISHWARYA 08/02/24 15:44 WC - Today's Visit Information Type of service Follow-up Visit (Physician/CORRUGATOR SUPERVISOR ) Arrival Mode Wheelchair Patient Identification Verified (Name & Yes ) Vital Signs Temperature (97.8 F-99.1 F) 99.6 F H Temperature Source Temporal Pulse Rate (60-100) 75 Pulse Location Monitor Respiratory Rate (12-18) 20 H Respiratory rate source Observation Oxygen Delivery Method Nasal Cannula O2 L/MIN (L/min) 2 Blood Pressure (90/60-120/80) 169/90 H Blood Pressure Mean (mm Hg) 116 Source Monitor Position Semi-Fowlers Blood Pressure Location Left Arm History Since Last Visit- (Skip if this is Patient's initial visit) Have you changed medications since your No last visit? Any new allergies or adverse reactions No Had a fall/change in ADL's that may No increase risk of falls Signs or symptoms of abuse and/or No neglect since last visit Have you been in the hospital since your No last visit? Has dressing in place as prescribed Yes Has compression in place as prescribed N/A Has offloadiing in place as prescribed N/A Experienced any changes in pain level or No management Left Footwear Regular Shoe Right Footwear Regular Shoe Pain Scale: 0-10 Numeric Is Patient Pain Free? Yes - Nurse 1 - General Ulcer Measurement Start: 08/02/24 15:39 Freq: Status: Active Protocol: Activity Type Activity Date Activity User E-sign Co-sign Detail Recorded Client Recorded Date Recorded By Document 08/02/24 15:44 KW [id number] 08/02/24 15:45 KW 08/02/24 15:44 Wound Center Nurse 1 #2 R ABD -Current Size (cm) - Length 0.1 -Current Size (cm) - Width 0.1 -Current Size (cm) - Depth 0.1 -Total Square Cm 0.01 -Date of Last Picture (Recall this 08/02/24 field) -Exudate Amt Small -Exudate Type Serosanguineous -Wound Margin Distinct, Outline Attached -Granulation Amt Large (67-100%) -Granulation Quality [place] -Texture (Esther-wound Skin Appearance) Assessed -Moisture (Esther-wound Skin Appearance) Assessed,Dry/ Scaly -Color (Esther-wound Skin Appearance) Assessed, Erythema -Temperature (Esther-wound Skin No Abnormality Appearance) (Pt Warm) -Tenderness on Palpation (Esther-wound No Skin Appearance) -Ulcer Cleansing Soap and Water -Foul Odor after Cleansing No -Anesthetic Used 5% Lidocaine Gel WC - Nurse 2 - General Ulcer CM Notes Start: 08/02/24 15:39 Freq: Status: Active Protocol: Activity Type Activity Date Activity User E-sign Co-sign Detail Recorded Client Recorded Date Recorded By Document 08/02/24 15:47 JF [id number] 08/02/24 15:49 JF 08/02/24 15:47 Wound Center Nurse 2 -Time 15:47 -Correct Patient Yes -Correct Side, Site, Position Yes -Correct Procedure Yes -Procedure Performed Yes -Type of Procedure Debridement -Clinical Debridement Subcutaneous -Tissue Removed Subcutaneous -Post Debridement (cm) - Length 0.5 -Post Debridement (cm) - Width 0.5 -Post Debridement (cm) - Depth 0.1 -Total Square (Post) (cm) 0.25 -Area of Debridement (cm) - Length 0.5 -Area of Debridement (cm) - Width 0.5 -Total Square (Area) (cm) 0.25 -Tunneling No -Undermining/Tunneling No -Circular Undermining No -Wound/Ulcer Outcome Not Healed -Ulcer Cleansing Rinsed/ Irrigated with Saline -Foul Odor after Cleansing No -Bioengineered Tissue No -Bleeding Controlled with Pressure -Treatment Response Procedure Tolerated Well -Offloading No -Debridement - Subq, 1st 20sq cm Yes Pain Scale: 0-10 Numeric Is Patient Pain Free? Yes WC - Nurse 3 - General Ulcer D/C NN Start: 08/02/24 15:39 Freq: Status: Active Protocol: Activity Type Activity Date Activity User E-sign Co-sign Detail Recorded Client Recorded Date Recorded By Document 08/02/24 15:50 MUSA [id number] 08/02/24 15:50 MUSA 08/02/24 15:50 Wound Care Center Nurse 3 #2 R ABD -Ulcer Cleansing Rinsed/ Irrigated with Saline -Foul Odor after Cleansing No -Primary Dressing Applied Aquacel AG 2x2 -Primary Dressing Covered/Secured with Dry Gauze, Secured with Tape -Aquacel AG 2x2 1 Pain Scale: 0-10 Numeric Is Patient Pain Free? Yes WC - Visit Discharge Discharge Condition Stable Ambulatory Status Wheelchair Transportation Private Auto Accompanied by daughter Medication Reconcilliation completed & Yes provided to patient/care provider Clinical Summary of Care Provided Yes Assessment/Plan Assessment/Plan (1) Skin ulcer of abdominal wall with fat layer exposed: CODE(S): L98.492 - Non-pressure chronic ulcer of skin of other sites with fat layer exposed PLAN: 1. Peniculitis The patient is currently on Keflex, and the wound is healing well. Continued use of Aquasil AG and Interdry is recommended to maintain cleanliness and promote healing. 2. Staghorn calculus The patient has an upcoming appointment with a kidney surgeon to address this issue. 3. Aortic stenosis Plans are in place for aortic valve replacement, which is a priority given the severity of the condition. 4. Urinary tract infection The infection was treated with antibiotics, and it was identified as E. coli. Continued monitoring is advised to prevent recurrence. PLAN: Plan - Continue using Aquasil AG and Interdry on the wound as directed. - Attend the upcoming appointment with the kidney surgeon for the staghorn calculus. - Follow up on plans for aortic valve replacement. - Monitor for any signs of urinary tract infection and seek medical attention if symptoms recur.
--- NOTE | 2024-08-03 10:31 | WC ---
PHOTO 08/02/24 ABD
== END 2024-08-16 23:59 | disposition home or self-care (01) ==
LOC: WC 15:28
PROVIDERS: PCP Internal Medicine; Referring Provider Internal Medicine; Visit Provider Surgery Plastic and Reconstructive Surgery
DX: L98.492 Non-pressure chronic ulcer of skin of other sites with fat layer exposed (principal); J44.9 Chronic obstructive pulmonary disease, unspecified; E11.9 Type 2 diabetes mellitus without complications; E65 Localized adiposity; N39.0 Urinary tract infection, site not specified; B96.20 Unspecified Escherichia coli [E. coli] as the cause of diseases classified elsewhere; N20.0 Calculus of kidney; M79.3 Panniculitis, unspecified; I35.0 Nonrheumatic aortic (valve) stenosis; Z79.01 Long term (current) use of anticoagulants; Z79.899 Other long term (current) drug therapy
CPT/HCPCS: 11042

== ENCOUNTER 2024-11-15 12:51 | Outpatient (RCR) | payer MEDICARE, OTHER, SELFPAY ==
[2024-11-15 12:59] VITALS: BP 160/78; PULSE 77; RESP 18; TEMP 37; BMI 45.2
--- NOTE | 2024-11-15 13:49 | PCM.WC.PN ---
History of Present Illness Date of Service: 11/15/24 Chief Complaint: Abdominal wound History of Wound: Date of Service: 06/14/24 Chief Complaint: Abdominal wound History of Wound: Nerissa Bradley is a 77-year-old female who presents to the wound healing center today for evaluation management of an abdominal wound. This wound is located in the midline under her pannus. She does have a very large pannus with significant weight. she reports that this wound has been present for approximately 1 month, first came to her attention when she was admitted to the hospital recently. She thinks it is from her wheelchair hitting against the area. At home, she relies on her daughter to assist her with wound care. Since her discharge from the hospital, they have been utilizing Aquacel they were sent home with but she did run out recently. She had been receiving antifungal powder to apply while in the hospital, but does not have this at home. She denies any history of prior wounds in this area. She does have a history of superficial wounds to the bilateral lower extremities which were also noted at the time of her most recent hospitalization early February, but seem to be resolved at this time. She does wear compression stockings. She is trying to do a better job of elevating her legs but does note she cannot lay back too far without having difficulty breathing. She is diabetic but most recent A1c in 11/2022 5.4 and do not see any active medications for diabetes. She does not smoke. She does not take any blood thinners other than aspirin. 27 October 2023: Dr. Mireles graciously referred me this very pleasant 77-year-old female for evaluation of a wound beneath her abdominal pannus in the crease. Mrs. Bradley's daughter was present on the phone during our visit we discussed her status. Their main goal from the visit today was to get follow-up for the abdominal wound beneath her pannus. She was admitted to the [facility] for her multiple comorbidities, including treatment of her COPD as well as aortic stenosis, and during this time she was treated for this wound that was developing beneath her pannus. They suggested that she follow-up with the juvenile justice specialist and [facility] near her home. She reports that she has been doing packing with Vashe soaked Kerlix twice daily and has been putting Interdry beneath the pannus to keep the skin from becoming macerated. No recent problems with yeast. 03 Nov 2023: Doing well overall. No new complaints. No fevers/chills. No new drainage. Daughter has been helping her with the dressing changes with Vashe. 17 Nov 2023: Doing well overall. Endorses good dressing changes. No new problems 08 Dec 2023: Doing well. Compliant with wound care. Seeing Dr. Mireles tomorrow. 29 Dec 2023: New wound on abdomen today. Has not been using the pad, Interdry (ran out and needs more, they've been ordered). No fevers/chills. 12 Jan 2024: Has been using Interdry. No fevers/chills. Here today for check up 26 Jan 2024: Discharged from [facility] recently after admission for UTI. No much progress on wound. Reports high protein intake and being intentional about this. 29 Mar 2024: Doing well. Endorses good dressing changes with daughter. No fevers or chills. 26 April 2024: Doing well overall. Reports good dressing changes. No new wounds. 14 June 2024: Was admitted to [facility] for pannicular cellulitis and UTI, but doing well at home now. Has been consistent with her dressing changes. Feels like wound is getting smaller Current encounter, 15 November 2024: Patient here because wound healed on the abdomen and then it recurred approximately 1 month ago. She believes maybe the area got wet and was rubbing. They have been doing Plazes. Objective Data Objective Data Vital Signs: Vital Signs Temp Pulse Resp BP O2 Del Method O2 Flow Rate 98.6 F 77 18 160/78 H Nasal Cannula 2 11/15/24 12:59 11/15/24 12:59 11/15/24 12:59 11/15/24 12:59 11/15/24 12:59 11/15/24 12:59 Oxygen Flow Rate (L/min) 2 Oxygen Delivery Method Nasal Cannula Weight: 289 lb Body Mass Index (BMI) 45.2 Charges/Coding Multi Select Codes Integumentary Integumentary CPT Codes: 80904 Sloane subq tissue 20 sq cm/< Physical Exam Narrative - Integumentary: Wound in the pannicular fold on the abdomen approximately 3 x 3 cm and 0.1 cm deep, subcutaneous tissues only (superficial no tunneling). Debridement Note Debridement Note Wound debrided: Abdominal wound Laterality: Not Applicable Wound Grade/Stage: Central Type of Debridement: Excisional debridement Anesthesia Used: 4% Lidocaine Solution Depth: in the subcutaneous layer Percentage of wound debrided: 100 Instrument Used: 5mm curette Tissue Removed: Fibrinous exudate and biofilm Severity: Fat Layer Exposed Amount of bleeding with debridement: Mild Bleeding Controlled with: Pressure Post-Debridement Measurements and Additional Note: Post-Debridement Measurements/Treatment WC - Nurse 1 - General Ulcer Assessment Start: 11/15/24 12:59 Freq: Status: Active Protocol: MITCH Activity Type Activity Date Activity User E-sign Co-sign Detail Recorded Client Recorded Date Recorded By Document 11/15/24 12:59 [id number] 11/15/24 13:10 11/15/24 12:59 - Today's Visit Information Type of service Initial Visit Arrival Mode Wheelchair Transfer Assistance None Patient Identification Verified (Name & Yes ) Height and Weight Height 5 ft 7 in Weight 289 lb Weight in Pounds 289.0 lbs Weight Measurement Method Stated by Patient Body Mass Index (BMI) 45.2 BMI Classification Obese Vital Signs Temperature (97.8 F-99.1 F) 98.6 F Temperature Source Temporal Pulse Rate (60-100) 77 Pulse Location Monitor Respiratory Rate (12-18) 18 Respiratory rate source Ausculation Oxygen Delivery Method Nasal Cannula O2 L/MIN (L/min) 2 Blood Pressure (90/60-120/80) 160/78 H Blood Pressure Mean (mm Hg) 105 Source Monitor Position Sitting Blood Pressure Location Right Arm History Since Last Visit- (Skip if this is Patient's initial visit) Have you changed medications since your No last visit? Any new allergies or adverse reactions No Had a fall/change in ADL's that may No increase risk of falls Signs or symptoms of abuse and/or No neglect since last visit Have you been in the hospital since your No last visit? Pain Scale: 0-10 Numeric Is Patient Pain Free? Yes Functional Assessment Recent Decline in Ability to Perform Ambulation, Lower Body Dressing Assistive Device With Patient Yes Culture/Jain/Registered Nurse Float Pool Cultural/Jain Needs that may affect No Treatment Plan Would you allow our hospital commission for the blind director to No meet you for the purpose of spiritual/ emotional support? Registered Nurse Float Pool to contact place of scientologist No WC - Nurse 1 - General Ulcer Measurement Start: 11/15/24 12:59 Freq: Status: Active Protocol: Activity Type Activity Date Activity User E-sign Co-sign Detail Recorded Client Recorded Date Recorded By Document 11/15/24 12:59 [id number] 11/15/24 13:10 11/15/24 12:59 Wound Center Nurse 1 #2 R ABD -Current Size (cm) - Length 2.0 -Current Size (cm) - Width 3.0 -Current Size (cm) - Depth 0.1 -Total Square Cm 6.00 -Date of Last Picture (Recall this 11/15/24 field) -Photo Taken Yes -Exudate Amt Medium -Exudate Type Serosanguineous -Wound Margin Distinct, Outline Attached -Granulation Amt Large (67-100%) -Granulation Quality Red -Slough/Fibrin No -Texture (Esther-wound Skin Appearance) Assessed -Moisture (Esther-wound Skin Appearance) Assessed -Color (Esther-wound Skin Appearance) Assessed -Temperature (Esther-wound Skin No Abnormality Appearance) (Pt Warm) -Tenderness on Palpation (Esther-wound No Skin Appearance) -Ulcer Cleansing Soap and Water -Foul Odor after Cleansing No -Anesthetic Used 5% Lidocaine Gel WC - Nurse 2 - General Ulcer CM Notes Start: 11/15/24 12:59 Freq: Status: Active Protocol: Activity Type Activity Date Activity User E-sign Co-sign Detail Recorded Client Recorded Date Recorded By Document 11/15/24 13:39 [id number] 11/15/24 13:41 11/15/24 13:39 Wound Center Nurse 2 -Time 13:40 -Correct Patient Yes -Correct Side, Site, Position Yes -Correct Procedure Yes -Procedure Performed Yes -Type of Procedure Debridement -Clinical Debridement Subcutaneous -Tissue Removed Subcutaneous -Post Debridement (cm) - Length 3 -Post Debridement (cm) - Width 3 -Post Debridement (cm) - Depth 0.2 -Total Square (Post) (cm) 9 -Area of Debridement (cm) - Length 3 -Area of Debridement (cm) - Width 3 -Total Square (Area) (cm) 9 -Tunneling No -Undermining/Tunneling No -Circular Undermining No -Wound/Ulcer Outcome Not Healed -Ulcer Cleansing Rinsed/ Irrigated with Saline -Foul Odor after Cleansing No -Bioengineered Tissue No -Bleeding Controlled with Pressure -Treatment Response Procedure Tolerated Well -Offloading No -Debridement - Subq, 1st 20sq cm Yes Pain Scale: 0-10 Numeric Is Patient Pain Free? Yes Assessment/Plan Assessment/Plan (1) Abdominal pannus: CODE(S): E65 - Localized adiposity (2) Skin ulcer of abdomen: CODE(S): L98.499 - Non-pressure chronic ulcer of skin of other sites with unspecified severity PLAN: Plan Plan for Interdry changes as needed and Aquacel Ag to the wound daily (with soapy water wash between dressing changes). Follow-up in 1 month or sooner as needed Patient and her daughter are happy with the plan
--- NOTE | 2024-11-16 10:02 | WC ---
PHOTO-ABD 11/15/24
== END 2024-11-16 23:59 | disposition home or self-care (01) ==
LOC: WC 12:51
PROVIDERS: PCP Internal Medicine; Referring Provider Internal Medicine; Visit Provider Surgery Plastic and Reconstructive Surgery
DX: E11.622 Type 2 diabetes mellitus with other skin ulcer (principal); L98.492 Non-pressure chronic ulcer of skin of other sites with fat layer exposed; J44.9 Chronic obstructive pulmonary disease, unspecified; E65 Localized adiposity; I35.0 Nonrheumatic aortic (valve) stenosis
CPT/HCPCS: 11042; 99213; G0463

== ENCOUNTER 2024-12-13 13:14 | Outpatient (RCR) | payer MEDICARE, OTHER, SELFPAY ==
[2024-12-13 13:27] VITALS: BP 181/94; PULSE 72; RESP 18; TEMP 36.6
--- NOTE | 2024-12-13 16:03 | PN.PCM_ITS ---
History of Present Illness Date of Service: 12/13/24 Chief Complaint: Abdominal wound History of Wound: Date of Service: 06/14/24 Chief Complaint: Abdominal wound History of Wound: Nerissa Bradley is a 77-year-old female who presents to the wound healing center today for evaluation management of an abdominal wound. This wound is located in the midline under her pannus. She does have a very large pannus with significant weight. she reports that this wound has been present for approximately 1 month, first came to her attention when she was admitted to the hospital recently. She thinks it is from her wheelchair hitting against the area. At home, she relies on her daughter to assist her with wound care. Since her discharge from the hospital, they have been utilizing Aquacel they were sent home with but she did run out recently. She had been receiving antifungal powder to apply while in the hospital, but does not have this at home. She denies any history of prior wounds in this area. She does have a history of superficial wounds to the bilateral lower extremities which were also noted at the time of her most recent hospitalization early February, but seem to be resolved at this time. She does wear compression stockings. She is trying to do a better job of elevating her legs but does note she cannot lay back too far without having difficulty breathing. She is diabetic but most recent A1c in 11/2022 5.4 and do not see any active medications for diabetes. She does not smoke. She does not take any blood thinners other than aspirin. 27 October 2023: Dr. Mireles graciously referred me this very pleasant 77-year-old female for evaluation of a wound beneath her abdominal pannus in the crease. Mrs. Bradley's daughter was present on the phone during our visit we discussed her status. Their main goal from the visit today was to get follow-up for the abdominal wound beneath her pannus. She was admitted to the [facility] for her multiple comorbidities, including treatment of her COPD as well as aortic stenosis, and during this time she was treated for this wound that was developing beneath her pannus. They suggested that she follow-up with the receiving specialist and [facility] near her home. She reports that she has been doing packing with Vashe soaked Kerlix twice daily and has been putting Interdry beneath the pannus to keep the skin from becoming macerated. No recent problems with yeast. 03 Nov 2023: Doing well overall. No new complaints. No fevers/chills. No new drainage. Daughter has been helping her with the dressing changes with Vashe. 17 Nov 2023: Doing well overall. Endorses good dressing changes. No new problems 08 Dec 2023: Doing well. Compliant with wound care. Seeing Dr. Mireles tomorrow. 29 Dec 2023: New wound on abdomen today. Has not been using the pad, Interdry (ran out and needs more, they've been ordered). No fevers/chills. 12 Jan 2024: Has been using Interdry. No fevers/chills. Here today for check up 26 Jan 2024: Discharged from [facility] recently after admission for UTI. No much progress on wound. Reports high protein intake and being intentional about this. 29 Mar 2024: Doing well. Endorses good dressing changes with daughter. No fevers or chills. 26 April 2024: Doing well overall. Reports good dressing changes. No new wounds. 14 June 2024: Was admitted to [facility] for pannicular cellulitis and UTI, but doing we ll at home now. Has been consistent with her dressing changes. Feels like wound is getting smaller 15 November 2024: Patient here because wound healed on the abdomen and then it recurred appro ximately 1 month ago. She believes maybe the area got wet and was rubbing. They have been doing [employer] Ag. Current encounter, 13 December 2024: Doing well overall. Getting kidney stones removed later this week. Objective Data Objective Data Vital Signs: Vital Signs Temp Pulse Resp BP O2 Del Method 98 F 72 18 181/94 H Room Air 12/13/24 13:27 12/13/24 13:27 12/13/24 13:27 12/13/24 13:27 12/13/24 13:27 Oxygen Delivery Method Room Air Charges/Coding Procedures Integumentary 111xxx-113xx: 22684 Sloane subq tissue 20 sq cm/< Physical Exam Narrative - Integumentary: Wound in the pannicular fold on the abdomen approximately 1x 1 cm and 0.2 cm deep, subcutaneous tissues only (superficial no tunneling). Debridement Note Debridement Note Wound debrided: Abdominal wound beneath the pannus Laterality: Not Applicable Wound Grade/Stage: Stage 3 Type of Debridement: Excisional debridement Anesthesia Used: 4% Lidocaine Solution Depth: in the subcutaneous layer Percentage of wound debrided: 100 Instrument Used: 7mm curette Tissue Removed: Fibrinous exudate and biofilm Severity: Fat Layer Exposed Amount of bleeding with debridement: Mild Bleeding Controlled with: Pressure Patient tolerated procedure: Patient tolerated procedure well Post-Debridement Measurements and Additional Note: Post-Debridement Measurements/Treatment - Nurse 1 - General Ulcer Assessment Start: 12/13/24 13:27 Freq: Status: Active Protocol: MITCH Activity Type Activity Date Activity User E-sign Co-sign Detail Recorded Client Recorded Date Recorded By Document 12/13/24 13:27 [place] [id number] 12/13/24 13:29 [place] 12/13/24 13:27 - Today's Visit Information Type of service Follow-up Visit (Physician/RED LEADER ) Arrival Mode Ambulatory Accompanied by self Patient Identification Verified (Name & Yes ) Safety Precautions Fall Prevention Vital Signs Temperature (97.8 F-99.1 F) 98 F Temperature Source Temporal Pulse Rate (60-100) 72 Pulse Location Monitor Respiratory Rate (12-18) 18 Respiratory rate source Observation Oxygen Delivery Method Room Air Blood Pressure (90/60-120/80) 181/94 H Blood Pressure Mean (mm Hg) 123 Source Monitor Position Sitting Blood Pressure Location Right Arm History Since Last Visit- (Skip if this is Patient's initial visit) Has dressing in place as prescribed Yes Has compression in place as prescribed Yes Has offloadiing in place as prescribed Yes Experienced any changes in pain level or Yes management Left Footwear Regular Shoe Right Footwear Regular Shoe Pain Scale: 0-10 Numeric Is Patient Pain Free? Yes [facility] Nurse 1 - General Ulcer Measurement Start: 12/13/24 13:27 Freq: Status: Active Protocol: Activity Type Activity Date Activity User E-sign Co-sign Detail Recorded Client Recorded Date Recorded By Document 12/13/24 13:27 IL [id number] 12/13/24 13:29 [place] 12/13/24 13:27 Wound Center Nurse 1 #2 R ABD -Current Size (cm) - Length 1 -Current Size (cm) - Width 0.5 -Current Size (cm) - Depth 0.1 -Total Square Cm 0.5 -Date of Last Picture (Recall this 12/13/24 field) -Photo Taken Yes -Tunneling No -Undermining/Tunneling No -Circular Undermining No -Exudate Amt Medium -Exudate Type Serosanguineous -Wound Margin Flat & Intact -Granulation Amt Medium (34-66%) -Granulation Quality Pale,[place] -Necrosis Amt None Present (0 %) -Texture (Esther-wound Skin Appearance) Assessed,Callus -Moisture (Esther-wound Skin Appearance) Assessed -Color (Esther-wound Skin Appearance) Assessed -Temperature (Esther-wound Skin No Abnormality Appearance) (Pt Warm) -Tenderness on Palpation (Esther-wound No Skin Appearance) -Ulcer Cleansing Soap and Water -Foul Odor after Cleansing No -Anesthetic Used 5% Lidocaine Gel Lower Limb Edema Present NA WC - Nurse 2 - General Ulcer CM Notes Start: 12/13/24 13:27 Freq: Status: Active Protocol: Activity Type Activity Date Activity User E-sign Co-sign Detail Recorded Client Recorded Date Recorded By Document 12/13/24 13:41 [id number] 12/13/24 13:42 12/13/24 13:41 Wound Center Nurse 2 #2 R ABD -Time 13:42 -Correct Patient Yes -Correct Side, Site, Position Yes -Correct Procedure Yes -Procedure Performed Yes -Type of Procedure Debridement -Clinical Debridement Subcutaneous -Tissue Removed Subcutaneous -Post Debridement (cm) - Length 1 -Post Debridement (cm) - Width 1 -Post Debridement (cm) - Depth 0.2 -Total Square (Post) (cm) 1 -Area of Debridement (cm) - Length 1 -Area of Debridement (cm) - Width 1 -Total Square (Area) (cm) 1 -Tunneling No -Undermining/Tunneling No -Circular Undermining No -Wound/Ulcer Outcome Not Healed -Ulcer Cleansing Rinsed/ Irrigated with Saline -Foul Odor after Cleansing No -Bioengineered Tissue No -Bleeding Controlled with Pressure -Treatment Response Procedure Tolerated Well -Offloading No -Debridement - Subq, 1st 20sq cm Yes Pain Scale: 0-10 Numeric Is Patient Pain Free? Yes - Nurse 3 - General Ulcer D/C NN Start: 12/13/24 13:27 Freq: Status: Active Protocol: Activity Type Activity Date Activity User E-sign Co-sign Detail Recorded Client Recorded Date Recorded By Document 12/13/24 13:51 [place] [id number] 12/13/24 13:54 [place] 12/13/24 13:51 Wound Care Center Nurse 3 #2 R ABD -Primary Dressing Applied Aquacel AG 4x4, Silicone Border Foam 4x4 -Primary Dressing Covered/Secured with Dry Gauze -Aquacel AG 4x4 1 -Silicone Border Foam 4x4 1 Pain Scale: 0-10 Numeric Is Patient Pain Free? Yes WC - Visit Discharge Discharge Condition Stable Ambulatory Status Ambulatory, Wheelchair Transportation Private Auto Medication Reconcilliation completed & No provided to patient/care provider Clinical Summary of Care Provided Yes Assessment/Plan Assessment/Plan (1) Skin ulcer of abdomen: CODE(S): L98.499 - Non-pressure chronic ulcer of skin of other sites with unspecified severity (2) Abdominal pannus: CODE(S): E65 - Localized adiposity PLAN: Plan Plan for Interdry changes as needed and Aquacel Ag to the wound daily (with soapy water wash between dressing changes). Follow-up in 1 month or sooner as needed Patient and her daughter are happy with the plan
--- NOTE | 2024-12-14 10:34 | WC ---
PHOTO-ABD 12/13/24
== END 2024-12-17 23:59 | disposition home or self-care (01) ==
LOC: WC 13:14
PROVIDERS: PCP Internal Medicine; Referring Provider Internal Medicine; Visit Provider Surgery Plastic and Reconstructive Surgery
DX: E11.622 Type 2 diabetes mellitus with other skin ulcer (principal); L98.432 Non-pressure chronic ulcer of abdomen with fat layer exposed; E65 Localized adiposity
CPT/HCPCS: 11042

== ENCOUNTER 2025-01-10 12:56 | Outpatient (RCR) | payer MEDICARE, OTHER, SELFPAY ==
[2025-01-10 13:13] VITALS: BP 131/47; PULSE 78; RESP 18; TEMP 36.4
--- NOTE | 2025-01-10 14:04 | PN.PCM_ITS ---
History of Present Illness Date of Service: 01/10/25 Chief Complaint: Abdominal wound History of Wound: Date of Service: 06/14/24 Chief Complaint: Abdominal wound History of Wound: Nerissa Bradley is a 77-year-old female who presents to the wound healing center today for evaluation management of an abdominal wound. This wound is located in the midline under her pannus. She does have a very large pannus with significant weight. she reports that this wound has been present for approximately 1 month, first came to her attention when she was admitted to the hospital recently. She thinks it is from her wheelchair hitting against the area. At home, she relies on her daughter to assist her with wound care. Since her discharge from the hospital, they have been utilizing Aquacel they were sent home with but she did run out recently. She had been receiving antifungal powder to apply while in the hospital, but does not have this at home. She denies any history of prior wounds in this area. She does have a history of superficial wounds to the bilateral lower extremities which were also noted at the time of her most recent hospitalization early February, but seem to be resolved at this time. She does wear compression stockings. She is trying to do a better job of elevating her legs but does note she cannot lay back too far without having difficulty breathing. She is diabetic but most recent A1c in 11/2022 5.4 and do not see any active medications for diabetes. She does not smoke. She does not take any blood thinners other than aspirin. 27 October 2023: Dr. Mireles graciously referred me this very pleasant 77-year-old female for evaluation of a wound beneath her abdominal pannus in the crease. Mrs. Bradley's daughter was present on the phone during our visit we discussed her status. Their main goal from the visit today was to get follow-up for the abdominal wound beneath her pannus. She was admitted to the [facility] for her multiple comorbidities, including treatment of her COPD as well as aortic stenosis, and during this time she was treated for this wound that was developing beneath her pannus. They suggested that she follow-up with the information systems security specialist and [facility] near her home. She reports that she has been doing packing with Vashe soaked Kerlix twice daily and has been putting Interdry beneath the pannus to keep the skin from becoming macerated. No recent problems with yeast. 03 Nov 2023: Doing well overall. No new complaints. No fevers/chills. No new drainage. Daughter has been helping her with the dressing changes with Vashe. 17 Nov 2023: Doing well overall. Endorses good dressing changes. No new problems 08 Dec 2023: Doing well. Compliant with wound care. Seeing Dr. Mireles tomorrow. 29 Dec 2023: New wound on abdomen today. Has not been using the pad, Interdry (ran out and needs more, they've been ordered). No fevers/chills. 12 Jan 2024: Has been using Interdry. No fevers/chills. Here today for check up 26 Jan 2024: Discharged from [facility] recently after admission for UTI. No much progress on wound. Reports high protein intake and being intentional about this. 29 Mar 2024: Doing well. Endorses good dressing changes with daughter. No fevers or chills. 26 April 2024: Doing well overall. Reports good dressing changes. No new wounds. 14 June 2024: Was admitted to [facility] for pannicular cellulitis and UTI, but doing we ll at home now. Has been consistent with her dressing changes. Feels like wound is getting smaller 15 November 2024: Patient here because wound healed on the abdomen and then it recurred appro ximately 1 month ago. She believes maybe the area got wet and was rubbing. They have been doing [employer]. 13 December 2024: Doing well overall. Getting kidney stones removed later this week. Subjective Subjective Current encounter, 10 January 2025: Patient doing well overall and reports that there may just be a scab versus completely healed Objective Data Objective Data Vital Signs: Vital Signs Temp Pulse Resp BP O2 Del Method 97.5 F L 78 18 131/47 H Room Air 01/10/25 13:13 01/10/25 13:13 01/10/25 13:13 01/10/25 13:13 01/10/25 13:13 Oxygen Delivery Method Room Air Charges/Coding Visit Charges Office Visits / Consults: 17591 OV L2 Est 10min Physical Exam Narrative - Integumentary: Wound in the pannicular fold has healed with new fresh skin. No wound Debridement Note Debridement Note No debridement was completed: No debridement was completed today Post-Debridement Measurements and Additional Note: Post-Debridement Measurements/Treatment LAKESHIA - Nurse 1 - General Ulcer Assessment Start: 01/10/25 13:13 Freq: Status: Active Protocol: MITCH Activity Type Activity Date Activity User E-sign Co-sign Detail Recorded Client Recorded Date Recorded By Document 01/10/25 13:13 MN [email or web address] 01/10/25 13:17 MN 01/10/25 13:13 WC - Today's Visit Information Type of service Follow-up Visit (Physician/[employer] ) Arrival Mode Wheelchair Accompanied by self Patient Identification Verified (Name & Yes ) Safety Precautions Fall Prevention Vital Signs Temperature (97.8 F-99.1 F) 97.5 F L Temperature Source Temporal Pulse Rate (60-100) 78 Pulse Location Monitor Respiratory Rate (12-18) 18 Respiratory rate source Monitor Oxygen Delivery Method Room Air Blood Pressure (90/60-120/80) 131/47 H Blood Pressure Mean (mm Hg) 75 Source Monitor Position Supine Blood Pressure Location Right Arm History Since Last Visit- (Skip if this is Patient's initial visit) Has dressing in place as prescribed Yes Has compression in place as prescribed Yes Has offloadiing in place as prescribed Yes Experienced any changes in pain level or Yes management Left Footwear Regular Shoe Right Footwear Regular Shoe Pain Scale: 0-10 Numeric Is Patient Pain Free? Yes LAKESHIA - Nurse 1 - General Ulcer Measurement Start: 01/10/25 13:13 Freq: Status: Active Protocol: Activity Type Activity Date Activity User E-sign Co-sign Detail Recorded Client Recorded Date Recorded By Document 01/10/25 13:13 MN [id number] 01/10/25 13:17 MN 01/10/25 13:13 Wound Center Nurse 1 #2 R ABD -Current Size (cm) - Length 0.1 -Current Size (cm) - Width 0.1 -Current Size (cm) - Depth 0.1 -Total Square Cm 0.01 -Photo Taken No -Epithelialization Large 67-100% -Tunneling No -Undermining/Tunneling No -Circular Undermining No -Exudate Amt None Present -Wound Margin Flat & Intact -Granulation Amt None Present (0 %) -Granulation Quality Pale -Necrosis Amt None Present (0 %) -Texture (Esther-wound Skin Appearance) Assessed -Moisture (Esther-wound Skin Appearance) Assessed -Color (Esther-wound Skin Appearance) Assessed -Temperature (Esther-wound Skin No Abnormality Appearance) (Pt Warm) -Tenderness on Palpation (Esther-wound No Skin Appearance) -Ulcer Cleansing Wound Cleanser -Foul Odor after Cleansing No Lower Limb Edema Present NA - Nurse 2 - General Ulcer CM Notes Start: 01/10/25 13:13 Freq: Status: Active Protocol: Activity Type Activity Date Activity User E-sign Co-sign Detail Recorded Client Recorded Date Recorded By Document 01/10/25 13:27 [id number] 01/10/25 13:27 01/10/25 13:27 Wound Center Nurse 2 #2 R ABD -Correct Patient Yes -Correct Side, Site, Position No -Correct Procedure No -Procedure Performed No -Post Debridement (cm) - Length 0 -Post Debridement (cm) - Width 0 -Post Debridement (cm) - Depth 0 -Total Square (Post) (cm) 0 -Area of Debridement (cm) - Length 0 -Area of Debridement (cm) - Width 0 -Total Square (Area) (cm) 0 -Wound/Ulcer Outcome Healed- Epithelialized Pain Scale: 0-10 Numeric Is Patient Pain Free? Yes - Nurse 3 - General Ulcer D/C NN Start: 01/10/25 13:13 Freq: Status: Active Protocol: Activity Type Activity Date Activity User E-sign Co-sign Detail Recorded Client Recorded Date Recorded By Document 01/10/25 13:28 [id number] 01/10/25 13:28 01/10/25 13:28 Is Patient Pain Free? Yes - Visit Discharge Discharge Condition Stable Ambulatory Status Wheelchair Transportation Private Auto Medication Reconcilliation completed & Yes provided to patient/care provider Clinical Summary of Care Provided Yes Assessment/Plan Assessment/Plan (1) Skin ulcer of abdomen: CODE(S): L98.499 - Non-pressure chronic ulcer of skin of other sites with unspecified severity PLAN: Healed Continue Interdry and nystatin powder or powders as needed to keep the pannicular fold clean and dry I discussed this with the patient and her daughter. They are in agreement with the plan Follow-up as needed
== END 2025-01-16 23:59 | disposition home or self-care (01) ==
LOC: WC 12:56
PROVIDERS: PCP Internal Medicine; Referring Provider Internal Medicine; Visit Provider Surgery Plastic and Reconstructive Surgery
DX: Z09 Encounter for follow-up examination after completed treatment for conditions other than malignant neoplasm (principal); J44.9 Chronic obstructive pulmonary disease, unspecified; I35.0 Nonrheumatic aortic (valve) stenosis; Z87.440 Personal history of urinary (tract) infections
CPT/HCPCS: 99213; G0463